=== PATIENT | male | born 1945 | race Caucasian/White ===

== ENCOUNTER 2023-02-24 11:11 | Outpatient (OUT) | payer MEDICARE, OTHER, SELFPAY ==
[2023-02-24 11:38] LABS: Basophils Percent Auto 0.4 % (0.2-2.0); Eosinophils Absolute Auto 0.3 10^3/uL (0.0-0.7); Eosinophils Percent Auto 2.7 % (0.9-7.0); Hematocrit 39.6 % (42.0-54.0); Hemoglobin 14.1 g/dL (14.0-18.0); Immature Granulocytes Abs Auto 0.03 10^3/uL (0.00-0.03); Immature Granulocytes Pct Auto 0.3 % (0.0-0.5); Lymphocytes Percent Auto 10.6 % (20.5-60.0); Mean Corpuscular HGB Conc 35.6 g/dL (29.9-35.2); Mean Corpuscular Hemoglobin 35.5 pg (25.9-34.0); Mean Corpuscular Volume 99.7 fL (80.0-94.0); Mean Platelet Volume 10.2 fL (9.5-13.5); Monocytes Absolute Auto 0.6 10^3/uL (0.3-0.8); Monocytes Percent Auto 6.4 % (1.7-12.0); Neutrophils Absolute Auto 7.6 10^3/uL (1.4-6.5); Neutrophils Percent Auto 79.6 % (43.0-75.0); Platelet Count 135 10^3/uL (150-450); Red Blood Count 3.97 10^6/uL (4.70-6.10); Red Cell Distribution Width 13.5 % (11.0-15.0); White Blood Count 9.5 10^3/uL (4.0-11.0)
[2023-02-24 12:25] LABS: Alanine Aminotransferase 13 U/L (16-63); Albumin Level 3.7 g/dL (3.4-5.0); Alkaline Phosphatase 69 U/L (46-116); Anion Gap 10.3; Aspartate Amino Transferase 11 U/L (15-37); BUN Creatinine Ratio 13.9; Bilirubin Total 1.2 mg/dL (0.2-1.0); Calcium 9.1 mg/dL (8.5-10.1); Carbon Dioxide 30.1 mmol/L (21.0-32.0); Chloride 101 mmol/L (98-107); Estimated GFR (African America >60 (>=60); Estimated GFR (Non-African Ame >60 (>=60); Globulin 3.6 g/dL; Glucose 119 mg/dL (74-106); Potassium 4.4 mmol/L (3.5-5.1); Sodium 137 mmol/L (136-145); Total Protein 7.3 g/dL (6.4-8.2)
== END 2023-02-24 11:12 | disposition home or self-care (01) ==
LOC: LAB 11:16
PROVIDERS: PCP Family Medicine
DX: I48.19 Other persistent atrial fibrillation (principal); Z79.01 Long term (current) use of anticoagulants
CPT/HCPCS: 36415; 80053; 85025

== ENCOUNTER 2023-03-04 08:39 | Outpatient (OUT) | payer MEDICARE, OTHER, SELFPAY ==
--- NOTE | 2023-03-04 08:48 | CT_ITS ---
[address] [address] Patient Name: ABDIAS FERNANDO MRN: [id number] date: 1945 Sex: M Assigned Patient Location: CT Current Patient Location: CT Accession/Order Number: [id number] Exam Date: 03/04/2023 08:50 Report Date: 03/04/2023 09:54 At the request of: JANES LEON Procedure: CT int auditory canals w/o con EXAMINATION: CT int auditory canals w/o con HISTORY: Hearing Loss COMPARISON: None. TECHNIQUE: High resolution helically acquired axial images were obtained through the temporal bones without the administration of intravenous contrast. Dose reduction techniques were achieved by using automated exposure control and/or adjustment of mA and/or kV according to patient size and/or use of iterative reconstruction technique. FINDINGS: The study is suboptimal due to lack of targeted axial and coronal reconstructions of the right and left temporal bones. Right: The external auditory canal is patent. There is minimal thickening of the tympanic membrane. The middle ear cavity is well aerated. The ossicles appear intact and in anatomic alignment. Scutum, tegmen tympani and tympanic segment of the facial nerve canal appear intact. The cochlea, vestibule and semicircular canals appear preserved. The internal auditory canal is not expanded. There is mild fluid in the right mastoid air cells. There are no lesions in the petrous apex. Left: The external auditory canal is patent. The tympanic membrane is not thickened. The ossicles are intact and well aligned. The scutum is not eroded. The tympanic segment of the facial nerve appears intact. The tegmen tympani appears intact. The cochlea, vestibule and semicircular canals appear preserved. The internal auditory canal is not expanded. There is mild fluid in the mastoid air cells. There are no lesions in the petrous apex. CT/CT int auditory canals w/o con IMPRESSION: Slight bilateral mastoid effusions. There is minimal thickening of the right tympanic membrane. The study is otherwise unremarkable. Electronically authenticated by: KE POTTS Date: 03/04/2023 09:54
== END 2023-03-04 08:40 | disposition home or self-care (01) ==
LOC: CT 08:42
PROVIDERS: PCP Family Medicine; Visit Provider Otolaryngology
DX: M86.68 Other chronic osteomyelitis, other site (principal)
CPT/HCPCS: 70480

== ENCOUNTER 2023-04-28 12:28 | Outpatient (RCR) | payer MEDICARE, OTHER, SELFPAY | END 2023-05-05 17:49 | disposition home or self-care (01) | LOC: MM 12:28 | PROVIDERS: PCP Family Medicine; Visit Provider Internal Medicine | DX: Z51.81 Encounter for therapeutic drug level monitoring (principal); Z79.01 Long term (current) use of anticoagulants; I48.20 Chronic atrial fibrillation, unspecified ==

== ENCOUNTER 2023-05-06 00:32 | Outpatient (RCR) | payer MEDICARE, OTHER, SELFPAY | END 2023-06-04 16:54 | disposition home or self-care (01) | LOC: MM 00:32 | PROVIDERS: PCP Family Medicine; Visit Provider Internal Medicine | DX: Z51.81 Encounter for therapeutic drug level monitoring (principal); Z79.01 Long term (current) use of anticoagulants; I48.20 Chronic atrial fibrillation, unspecified | CPT/HCPCS: G0463 ==

== ENCOUNTER 2023-07-14 14:30 | Outpatient (REF) | payer OTHER, SELFPAY ==
--- OUTSIDE RECORDS SUMMARY | 2023-09-16 09:25 | XMS_ITS | CCD ---
Author Name Unknown Address [address] [place] [address] Organization [facility] Care Team Providers Care Director Payment Name Role Phone Real Dodd Unavailable Unavailable Unavailable Andrea Govea II Unavailable MD Real Dodd Primary Care Provider [phone] MD Real Dodd Attending Provider MD Andrea Govea II Attending Provider DR REAL DODD Consulting Unavailable DR REAL DODD Attending Unavailable DR REAL DODD Admitting Unavailable DR REAL DODD Primary Care Unavailable DR REAL DODD Consulting Unavailable JU, DR NOBLE Attending Unavailable JU, DR NOBLE Admitting Unavailable JU, DR NOBLE Primary Care Unavailable DR REAL DODD Attending Unavailable DR REAL DODD Consulting Unavailable DR REAL DODD Admitting Unavailable DR REAL DODD Primary Care Unavailable RAHEEM GRAHAM Consulting Unavailable DR REAL DODD Consulting Unavailable DR REAL DODD Attending Unavailable DR REAL DODD Referring Unavailable DR REAL DODD Admitting Unavailable DR REAL DODD Primary Care Unavailable DR YURI PATEL Consulting Unavailable DR REAL DODD Consulting Unavailable DR REAL DODD Attending Unavailable JU, DR NOBLE Admitting Unavailable DR REAL DODD Primary Care Unavailable CARTER Adams Other Provider Unavailable CARTER Young Other Provider Unavailable CARTER Elizondo Other Provider Unavailable CARTER Argueta Other Provider Unavailable CARTER Alvarez Other Provider Unavailable CARTER Rm Other Provider Unavailable Carlo, MD Derrick K Other Provider MAURA WongN Kimmy M Other Provider DO Bandar Caro Other Provider MD Butch Ballard Other Provider DO Cruz Phipps Other Provider MD Taiwo Guy Other Provider MD Katy Irvin Other Provider Kathe ANP-BC Bernadette Other Provider MD Carol Carias Other Provider MD Roel Macedo Other Provider MD Dotty Benson Other Provider MD Phyllis Medellin Other Provider DO John Hall Other Provider MD Rodger Loyd Other Provider MD Familia Dos Santos Other Provider MD Zach Leavitt Other Provider KARLA Bennett-Marina Riley Other Provider MD Shar Kahn Other Provider MD Evin Silver Other Provider MD Lilian Shrestha Other Provider MD Tarun Bateman Other Provider DO Tonya Mcgregor Other Provider MD Jennifer Barry Other Provider DO Paco Kim Other Provider DO Saúl Funk Other Provider QUYNH Zabala Other Provider DO Jimenez Bran Other Provider MD Watson Ryan Other Provider CARTER Talamantes Other Provider Unavailable MD Delmer Whyte Admit Provider MD Delmer Whyte Attending Provider MD Rain Ramos Other Provider Ju, Dr. Real Lopez Primary Care Unavail able Traboulssi, Dr. Perez Attending Unavaila ble Traboulssi, Dr. Perez Attending Unavaila ble Traboulssi, Dr. Perez Referring Unavaila ble Hoy, Dr. Real Lopez Primary Care Unavail able Traboulssi, Dr. Perez Attending Unavaila ble Traboulssi, Dr. Perez Referring Unavaila ble Hoy, Dr. Real Lopez Primary Care Unavail able Traboulssi, Dr. Perez Referring Unavaila ble Traboulssi, Dr. Perez Attending Unavaila ble Hoy, Dr. Real Lopez Primary Care Unavail able Hoy, Dr. Real Lopez Primary Care Unavail able Traboulssi, Dr. Perez Referring Unavaila ble Traboulssi, Dr. Perez Attending Unavaila ble MD Real Dodd Primary Care Provider MD Andrea Govea II Attending Provider MD Real Dodd Primary Care Provider MD Andrea Govea II Attending Provider [phone] CARTER Adams Other Provider Unavailable CARTER Young Other Provider Unavailable CARTER Elizondo Other Provider Unavailable CARTER Argueta Other Provider Unavailable CARTER Alvarez Other Provider Unavailable CARTER Rm Other Provider Unavailable MD Rain Ramos Other Provider Marvin, QUYNH Soliz Other Provider DO Bandar Caro Other Provider [phone] MD Butch Ballard Other Provider DO Cruz Phipps Other Provider MD Taiwo Guy Other Provider MD Katy Irvin Other Provider QUYNH Carr Other Provider MD Carol Carias Other Provider MD Roel Macedo Other Provider MD Dotty Benson Other Provider MD Phyllis Medellin Other Provider DO John Hall Other Provider MD Familia Dos Santos Other Provider MD Zach Leavitt Other Provider KARLA Bennett-C Priscilla Riley Other Provider MD Shar Kahn Other Provider MD Evin Silver Other Provider MD Sabas Kc Other Provider MD Tarun Bateman Other Provider DO Tonya Mcgregor Other Provider DO Paco Kim Other Provider DO Saúl Funk Other Provider [phone] QUYNH Zabala Other Provider DO Jimenez Bran Other Provider [phone] MD Watson Ryan Other Provider QUYNH Collins Other Provider QUYNH Platt Other Provider MD Bianca Banuelos Other Provider MD Colby Acosta Other Provider DO Teo Ennis Other Provider [phone] QUYNH Narayanan Other Provider DO Sheila Bañuelos Other Provider CARTER Talamantes Other Provider Unavailable MD Delmer Whyte Other Provider MD Delmer Whyte Admit Provider MD Delmer Whyte Attending Provider JANES LEON Attending Unavailable Real Dodd Primary Care Physician MD Real Dodd Primary Care Provider [phone] MD Andrea Govea II Attending Provider [phone] Jeferson OROZCO, Andrea Soliz Attending Unavailabl e [place] II, Andrea Soliz Admitting Unavailabl e Real Dodd Primary Care Unavailable Jeferson II, Andrea Soliz Admitting Unavailabl e Jeferson II, Andrea Soliz Attending Unavailabl e Real Dodd Primary Care Unavailable Jeferson II, Andrea Soliz Admitting Unavailabl e Real Dodd Primary Care Unavailable Jeferson OROZCO, Andrea Soliz Attending Unavailabl e [place] II, Andrea Soliz Admitting Unavailabl e [place] II, Andrea Soliz Attending Unavailabl e Real Dodd Primary Care Unavailable [place] II, Andrea Soliz Admitting Unavailabl e Jeferson OROZCO, Andrea Soliz Attending Unavailabl e Real Dodd Primary Care Unavailable Basilia Adams Consulting Unavailable Annette Young Consulting Unavailable Lala Elizondo Consulting Unavailable Rebeka Argueta Consulting Unavailable Yeny Alvarez Consulting Unavailable Orly Rm Consulting Unavailable Rain Ramos Consulting Unavailable Kimmy Wong Consulting Unavailable Bandar Caro Consulting Unavailable Butch Ballard Consulting Unavailable Crzu Phipps Consulting Unavailabl e Taiwo Guy Consulting Unavailable Katy Irvin Consulting Unavailable Bernadette Carr Consulting Unavailabl e Carol Carias Consulting Unavailable Roel Macedo Consulting Unavailable Dotty Benson Consulting Unavailable Phyllis Medellin Consulting Unavailable John Hall Consulting Unavailable Familia Dos Santos Consulting Unavailable Zach Leavitt Consulting Unavailable Priscilla Bennett Consulting Unavailable Doamekpor, Shar E Consulting Unavailab le Nadeem, Evin Consulting Unavailable De, Sabas Consulting Unavailable Fransico, Tarun Consulting Unavailable Tonya Mcgregor Consulting Unavailable Paco Kim Consulting Unavailable Saúl Funk Consulting Unavailable Bindu Zabala Consulting Unavailable Jimenez Bran Consulting Unavailable Daromar, Obaydah M Consulting Unavailable Gerda Collins Consulting Unavailable Marilee Platt Consulting Unavailable Lakisha, Alaa Consulting Unavailable Colby Acosta Consulting Unavailable Teo Ennis Consulting Unavailable Amy Narayanan Consulting Unavailable Sarmad, Yazid Consulting Unavailable Norma Talamantes Consulting Unavailable Delmer Whyte Consulting Unavailable Basilia Adams Consulting Unavailable Delmer Whyte Attending Unavailable Delmer Whyte Admitting Unavailable Real Dodd Primary Care Unavailable Annette Young Consulting Unavailable Lala Elizondo Consulting Unavailable Rebeka Argueta Consulting Unavailable Yeny Alvarez Consulting Unavailable Orly Rm Consulting Unavailable Rain Ramos Consulting Unavailable Kimmy Wong Consulting Unavailable Bandar Caro Consulting Unavailable Butch Ballard Consulting Unavailable Cruz Phipps Consulting UnavailTaiwo Pugh Consulting Unavailable Katy Irvin Consulting Unavailable Bernadette Carr Consulting UnavailCarol Squires Consulting Unavailable Roel Macedo Consulting Unavailable Dotty Benson Consulting Unavailable Phyllis Medellin Consulting Unavailable John Hall Consulting Unavailable Familia Dos Santos Consulting Unavailable Zach Leavitt Consulting Unavailable Priscilla Bennett Consulting Unavailable DoShar fam E Consulting Unavailab le Nadeem, Evin Consulting Unavailable De, Sabas Consulting Unavailable Fransico, Tarun Consulting Unavailable Tonya Mcgregor Consulting Unavailable Paco Kim Consulting Unavailable Saúl Funk Consulting Unavailable Bindu Zabala Consulting Unavailable Jimenez Bran Consulting Unavailable Daromar, Obaydah M Consulting Unavailable Gerda Collins Consulting Unavailable Marilee Platt C Consulting Unavailable Lakisha, Alaa Consulting Unavailable Colby Acosta Consulting Unavailable Amy Narayanan Consulting Unavailable Sarmad, Patriciazid Consulting Unavailable Norma Talamantes Consulting Unavailable John BARTLETT Attending Unavailable John BARTLETT Attending Unavailable John BARTLETT Attending Unavailable John BARTLETT Attending Unavailable JAMMIE VELASQUEZ Attending Unavailable REAL DODD Primary Care Unavailable Allergies Allergy Classification Reported Allergen(s) Allergy Type Date of Onset Reaction(s) Facility (5 sources) Triamcinolone; Translations: [triamcinolone topical] Drug Allergy 02-25-2023 Anaphylaxis (disorder) General Surgery [place] Medications Current Medications Medication Drug Class(es) Dates Sig (Normalized) Sig (Original) acetaminophen 500 mg oral tablet (20 sources) Start: 05-27-2023 take 500 mg by mouth every eight hours Acetaminophen Active 500 MG PO Q8H 0 May 27, 2023 8:40am Start: 05-18-2023 End: 05-27-2023 take 1000 mg by mouth every eight hours Acetaminophen Discontinued 1000 MG PO Q8H May 18, 2023 12:00am May 27, 2023 8:41am Start: 04-28-2023 End: 05-12-2023 take 2 capsules by mouth four times daily Acetaminophen (Tylenol Extra Strength) 500 mg Capsule Discontinued 1000 MG PO Four times daily April 27, 2023 11:00pm May 12, 2023 9:49am Start: 04-15-2022 End: 04-28-2022 take 1000 mg by mouth every eight hours Acetaminophen Discontinued 1000 MG PO Q8H April 14, 2022 11:00pm April 28, 2022 8:16am Start: 03-26-2022 take 2 tablets by mo [facility] every eight hours for pain Acetaminophen 500 MG 2 tablets for pain Orally every 8 hrs for 30 days Med to Bed Upon Discharge DOS: 05/12/2023 Apr, Active allopurinol 300 mg oral tablet (20 sources) Xanthine Oxidase Inhibitor Start: 06-17-2023 take 1 tablet by mouth once daily allopurinol 300 mg Tab 300 mg = 1 tab(s), Oral, Daily, Refills(s) 0 Start Date: 06/17/23 Status: Ordered Start: 09-06-2019 End: 04-28-2022 take 300 mg by mouth once daily in the morning Allopurinol Discontinued 300 MG PO Every morning September 05, 2020 12:00am April 28, 2022 8:16am apixaban 5 mg oral tablet (20 sources) Factor Xa Inhibitor Start: 06-17-2023 take 1 tablet by mouth twice daily Eliquis 5 mg oral tablet 5 mg = 1 tab(s), Oral, BID, Refills(s) 0 Start Date: 06/17/23 Status: Ordered Start: 09-05-2020 End: 04-28-2022 take 1 tablet by mouth twice daily Eliquis 5 mg oral tablet 5 mg = 1 tab(s), Oral, BID, Refills(s) 0 Start Date: 06/17/23 Status: Ordered ascorbic acid 500 mg oral tablet (20 sources) Vitamin C Start: 05-18-2023 take 1 tablet by mouth twice daily at mealtime Ascorbic Acid (Vitamin C) (Vitamin C) 500 mg Tablet Active 500 MG PO Twice daily with meals May 18, 2023 12:00am Start: 04-28-2023 End: 05-18-2023 take 1 tablet by mouth once daily Ascorbic Acid (Vitamin C) (Vitamin C) 500 mg tablet Discontinued 500 MG PO Daily April 28, 2023 8:11am May 18, 2023 1:23pm Start: 04-15-2022 End: 04-28-2023 take 1 tablet by mouth twice daily at mealtime Ascorbic Acid (Vitamin C) (Vitamin C) 500 mg Tablet Discontinued 500 MG PO Twice daily with meals April 27, 2022 11:00pm April 28, 2023 8:12am Start: 02-10-2022 End: 04-15-2022 take 500 mg by mouth once daily Ascorbic Acid (Vitamin C) Discontinued 500 MG PO Daily March 30, 2022 11:00pm April 15, 2022 1:02pm take 1 capsule by [facility] once daily Vitamin C 500 MG Oral Capsule 1 daily Quantity: 0 Refills: 0 Ordered: 05-Aug-2022 DO Active carvedilol 25 mg oral tablet (20 sources) alpha-Adrenergic Eddi, beta-Adrenergic Eddi Start: 06-17-2023 take 1 tablet by mouth twice daily carvedilol 25 mg Tab 25 mg = 1 tab(s), Oral, BID, Refills(s) 0 Start Date: 06/17/23 Status: Ordered Start: 08-31-2019 End: 04-28-2022 take 25 mg by mouth twice daily Carvedilol Discontinued 25 MG PO Twice daily September 05, 2020 12:00am April 28, 2022 8:16am celecoxib 200 mg oral capsule (5 sources) Nonsteroidal Anti-inflammatory Drug Start: 03-26-2022 take 1 capsule by mouth every twelve hours Celecoxib 200 MG 1 capsule with food Orally Twice a day for 30 day(s) MED TO BED UPON DISCHARGE DOS: 04/14/22 Mar, Active docusate sodium 100 mg oral capsule (9 sources) Start: 06-17-2023 take 1 capsule by mouth once daily as needed for constipation Colace 100 mg Cap 100 mg = 1 cap(s), Oral, Daily, PRN for constipation, Refills(s) 0 Start Date: 06/17/23 Status: Ordered Start: 04-28-2022 End: 04-28-2023 take 100 mg by mouth twice daily Docusate Sodium Discontinued 100 MG PO Twice daily April 27, 2022 11:00pm April 28, 2023 8:11am ferrous sulfate 325 mg delayed release oral tablet (20 sources) Start: 06-17-2023 take 1 tablet by mouth once daily ferrous sulfate 325 mg oral enteric coated tablet 325 mg = 1 tab(s), Oral, Daily, Refills(s) 0 Start Date: 06/17/23 Status: Ordered Start: 05-27-2023 take 324 mg by mouth once kira y Ferrous Sulfate Active 324 MG PO Daily 0 May 27, 2023 8:40am Start: 05-18-2023 End: 05-27-2023 take 324 mg by mouth twice daily at mealtime Ferrous Sulfate Discontinued 324 MG PO Twice daily with meals May 18, 2023 12:00am May 27, 2023 8:41am Start: 04-28-2023 End: 05-18-2023 take 324 mg by mouth once daily Ferrous Sulfate Discon tinued 324 MG PO Daily April 28, 2023 8:11am May 18, 2023 1:23pm Start: 04-15-2022 End: 04-28-2023 take 324 mg by mouth twice daily Ferrous Sulfate Disco ntinued 324 MG PO Twice daily April 27, 2022 11:00pm April 28, 2023 8:12am Start: 02-10-2022 End: 04-15-2022 take 325 mg by mouth once daily Ferrous Sulfate Discon tinued 325 MG PO Daily March 30, 2022 11:00pm April 15, 2022 1:01pm take 1 tablet by shayy th once daily Ferrous Sulfate 325 (65 Fe) MG TAKE 1 TABLET BY MOUTH EVERY DAY for 30 Active folic acid 1 mg oral tablet (20 sources) Start: 06-17-2023 take 1 tablet by mouth once daily folic acid 1 mg Tab 1 mg = 1 tab(s), Oral, Daily, Refills(s) 0 Start Date: 06/17/23 Status: Ordered Start: 04-15-2022 End: 04-28-2022 take 1 tablet by mouth once daily folic acid 1 mg Tab 1 mg = 1 tab(s), Oral, Daily, Refills(s) 0 Start Date: 06/17/23 Status: Ordered furosemide 40 mg oral tablet (9 sources) Loop Diuretic Start: 06-17-2023 take 1 tablet by mouth once daily Lasix 40 mg Tab 40 mg = 1 tab(s), Oral, Daily, Refills(s) 0 Start Date: 06/17/23 Status: Ordered Start: 04-28-2022 End: 04-28-2023 take 40 mg by mouth once daily Furosemide Discontinued 40 MG PO Daily at 0800 April 27, 2022 11:00pm April 28, 2023 8:11am Iron (1 source) Start: 02-10-2022 take 1 tablet by mouth once daily Iron (Ferrous Sulfate) 325 (65 Fe) MG 1 tablet Orally Once a day for 30 day(s) Feb, Active melatonin 5 mg oral tablet (9 sources) Start: 06-17-2023 take 1 tablet by mouth once daily at bedtime as needed melatonin 5 mg oral tablet 5 mg = 1 tab(s), Oral, Once a day (at bedtime), PRN for insomnia, Refills(s) 0 Start Date: 06/17/23 Status: Ordered Start: 04-28-2022 End: 04-28-2023 take 5 mg by mouth once daily at bedtime Melatonin Discontinued 5 MG PO Daily at bedtime April 27, 2022 11:00pm April 28, 2023 8:12am omeprazole 20 mg delayed release oral capsule (9 sources) Proton Pump Inhibitor Start: 06-17-2023 take 1 capsule by mouth once daily omeprazole 20 mg Cap-DR 20 mg = 1 cap(s), Oral, Daily, Refills(s) 0 Start Date: 06/17/23 Status: Ordered Start: 04-28-2022 End: 04-28-2023 take 20 mg by mouth once daily Omeprazole Discontinued 20 MG PO Daily April 27, 2022 11:00pm April 28, 2023 8:12am oxyCODONE hydrochloride 5 mg oral tablet (20 sources) Opioid Agonist Start: 05-27-2023 take 5 mg by mouth every six hours Oxycodone Active 5 MG PO Q6H 30 May 27, 2023 Start: 04-29-2023 End: 05-27-2023 take 5 mg by mouth every four hours Oxycodone Discontinued 5 MG PO Every 4 hours May 18, 2023 3:44pm May 27, 2023 8:40am Start: 03-26-2022 End: 04-28-2023 take 5 mg by mouth every four hours Oxycodone Discontinued 5 MG PO Every 4 hours 16 01April 28, 2022 April 28, 2023 8:12am Miralax (20 sources) Osmotic Laxative Start: 06-17-2023 take 17 g by mouth once daily MiraLax 17 gm, Oral, Daily, Refill(s) 0 Start Date: 06/17/23 Status: Ordered Start: 05-18-2023 End: 05-27-2023 Polyethylene Glycol 3350 (He althylax) 17 gram Powder In Packet Active 17 GM PO Daily May 27, 2023 8:40am Start: 03-26-2022 End: 04-28-2023 Polyethylene Glycol 3350 (Mi ralax) 17 gram Powder In Packet Discontinued 17 GM PO Daily April 27, 2022 11:00pm April 28, 2023 8:12am vitamin b12 1 mg oral tablet (17 sources) Vitamin B12 Start: 04-15-2022 End: 04-28-2022 take 1000 ug by mouth once daily in the morning Cyanocobalamin (Vitamin B-12) Active 1000 MCG PO Every morning April 27, 2022 11:00pm Vitamin B12 1000 mcg Tab (3 sources) Start: 06-17-2023 take 1 tablet by mouth once daily Vitamin B12 1000 mcg Tab 1,000 mcg = 1 tab(s), Oral, Daily, Refills(s) 0 Start Date: 06/17/23 Status: Ordered Vitamin D 25 MCG (1000 UT) (1 source) Start: 02-10-2022 take 5 tablets by mouth once daily Vitamin D 25 MCG (1000 UT) 5 tablet Orally Once a day for 30 day(s) 5k Vit D daily Feb, Active Vitamin D3 1000 intl units (25 mcg) Tab (3 sources) Start: 06-17-2023 take 1 tablet by mouth once daily Vitamin D3 1000 intl units (25 mcg) Tab 25 mcg = 1 tab(s), Oral, Daily, Refills(s) 0 Start Date: 06/17/23 Status: Ordered Vitamin D3 25 MCG (1000 UT) (3 sources) take 5 tablets by mouth once daily Vitamin D3 25 MCG (1000 UT) TAKE 5 TABLETS BY MOUTH ONCE DAILY for 90 Active Vitamin D3 25 MC G (1000 UT) TAKE 5 CAPSULES BY MOUTH ONCE A DAY FOR 30 DAYS for 30 Active Completed/Discontinued Medications Medication Drug Class(es) Dates Sig (Normalized) Sig (Original) amLODIPine 10 mg oral tablet (20 sources) Dihydropyridine Calcium Channel Eddi Start: 04-02-2021 End: 04-28-2022 take 10 mg by mouth once daily Amlodipine Discontinued 10 MG PO Daily March 30, 2022 11:00pm April 28, 2022 8:16am amoxicillin 875 mg / clavulanate 125 mg oral tablet (1 source) Penicillin-class Antibacterial Start: 08-09-2020 Amoxicillin-Pot Clavulanate 875-125 MG Oral Tablet Quantity: 20 Refills: 0 Ordered: 09-Aug-2020 DO Start : 09-Aug-2020 Complete bisacodyl 5 mg delayed release oral tablet (2 sources) Stimulant Laxative Start: 05-18-2023 End: 05-27-2023 take 10 mg by mouth once daily Bisacodyl Discontinued 10 MG PO Daily May 18, 2023 12:00am May 27, 2023 8:41am cefadroxil 500 mg oral capsule (13 sources) Cephalosporin Antibacterial Start: 05-18-2023 End: 05-27-2023 take 500 mg by mouth twice daily Cefadroxil Discontinued 500 MG PO Twice daily May 18, 2023 12:00am May 27, 2023 8:41am Start: 04-29-2023 take 1 capsule by mo [facility] every twelve hours Cefadroxil 500 MG 1 tablet Orally every 12 hrs for 7 days Med to Bed Upon Discharge DOS: 05/12/2023 Apr, Active Start: 04-15-2022 End: 04-28-2022 take 500 mg by mouth twice daily Cefadroxil Discontinued 500 MG PO Twice daily April 14, 2022 11:00pm April 28, 2022 8:16am Start: 03-26-2022 take 1 capsule by [facility] every twelve hours Cefadroxil 500 MG 1 tablet Orally every 12 hrs for 7 days MED TO BED UPON DISCHARGE DOS: 04/14/22 Mar, Active cholecalciferol 0.025 mg oral tablet (20 sources) Vitamin D Start: 05-28-2022 take 5 tablets by mouth once daily Vitamin D3 25 MCG (1000 UT) Oral Tablet TAKE 5 TABLETS BY MOUTH ONCE DAILY Quantity: 450 Refills: 0 Ordered: 30-May-2022 DO Start : 28-May-2022 Active Start: 04-28-2022 take 125 ug by mouth once daily Cholecalciferol (Vitamin D3) Active 125 MCG PO Daily April 27, 2022 11:00pm Start: 03-31-2022 End: 04-28-2022 take 5000 [IU] by mouth once daily Cholecalciferol (Vitamin D3) Discontinued 5000 UNIT PO Daily March 30, 2022 11:00pm April 28, 2022 8:16am Vitamin D3 25 MC G (1000 UT) TAKE 5 CAPSULES BY MOUTH ONCE A DAY FOR 30 DAYS for 30 Active clotrimazole 10 mg/ml topical solution (1 source) Azole Antifungal Start: 06-11-2020 Clotrimazole 1 % External Solution Quantity: 15 Refills: 0 Ordered: 11-Jun-2020 DO Start : 11-Jun-2020 Complete diclofenac sodium 75 mg delayed release oral tablet (20 sources) Nonsteroidal Anti-inflammatory Drug Start: 09-05-2020 End: 04-15-2022 take 75 mg by mouth twice daily Diclofenac Sodium Discontinued 75 MG PO Twice daily September 05, 2020 12:00am April 15, 2022 1:01pm Start: 05-18-2020 Diclofenac Sod ium 75 MG Oral Tablet Delayed Release 1 TAB EDWARD Quantity: 0 Refills: 0 Ordered: 01-Jun-2020 DO Start : 18-May-2020 Active docusate sodium 50 mg / sennosides, snf 8.6 mg oral tablet (20 sources) Start: 04-29-2023 End: 05-27-2023 take 2 tablets by mouth once daily Sennosides-Docusate Sodium Discontinued 2 TAB PO Daily May 18, 2023 12:00am May 27, 2023 8:40am Start: 03-26-2022 End: 04-28-2023 take 2 tablets by mouth once daily Sennosides-Docusate Sodium (Stool Softener-Stimulant Laxat) 8.6-50 mg Tablet Discontinued 2 TAB PO Daily April 27, 2022 11:00pm April 28, 2023 8:12am hydrALAZINE hydrochloride 100 mg oral tablet (20 sources) Arteriolar Vasodilator Start: 09-05-2020 End: 04-28-2022 take 100 mg by mouth twice daily Hydralazine Discontinued 100 MG PO Twice daily September 05, 2020 12:00am April 28, 2022 8:16am hydroCHLOROthiazide 25 mg oral tablet (20 sources) Thiazide Diuretic Start: 09-05-2020 End: 04-28-2022 take 25 mg by mouth once daily in the morning Hydrochlorothiazide Discontinued 25 MG PO Every morning September 05, 2020 12:00am April 28, 2022 8:16am Start: 09-05-2020 take 25 mg by mouth every other day Hydrochlorothiazide Active 25 MG PO Q2D September 05, 2020 1:00am ibuprofen 200 mg oral capsule (3 sources) Nonsteroidal Anti-inflammatory Drug Start: 04-28-2023 End: 05-12-2023 take 400 mg by mouth every six hours Ibuprofen Discontinued 400 MG PO Q6H April 27, 2023 11:00pm May 12, 2023 9:49am lisinopril 40 mg oral tablet (20 sources) Angiotensin Converting Enzyme Inhibitor Start: 07-10-2020 End: 04-28-2022 take 40 mg by mouth once daily in the morning Lisinopril Discontinued 40 MG PO Every morning September 05, 2020 12:00am April 28, 2022 8:16am losartan potassium 100 mg oral tablet (10 sources) Angiotensin 2 Receptor Eddi Start: 02-04-2021 Losartan Potassium 100 MG Oral Tablet Quantity: 90 Refills: 0 Ordered: 04-Feb-2021 DO Start : 04-Feb-2021 Complete Start: 09-05-2020 End: 03-31-2022 take 100 mg by mouth once daily Losartan Discontinued 100 MG PO Daily September 05, 2020 12:00am March 31, 2022 1:01pm mineral oil 1000 mg/ml enema (2 sources) Start: 05-18-2023 End: 05-27-2023 Mineral Oil (Fleet Mineral Oil) Enema Discontinued 1 EACH TN Once May 18, 2023 12:00am May 27, 2023 8:41am ofloxacin 3 mg/ml otic solution (1 source) Quinolone Antimicrobial Start: 06-11-2020 Ofloxacin 0.3 % Otic Solution Quantity: 5 Refills: 0 Ordered: 11-Jun-2020 DO Start : 11-Jun-2020 Complete ondansetron 4 mg disintegrating oral tablet (16 sources) Serotonin-3 Receptor Antagonist Start: 05-18-2023 End: 05-27-2023 take 8 mg by mouth three times daily Ondansetron Discontinued 8 MG PO Three times daily May 18, 2023 12:00am May 27, 2023 8:41am Start: 04-15-2022 End: 04-28-2022 take 8 mg by mouth three times daily Ondansetron Discontinued 8 MG PO Three times daily April 14, 2022 11:00pm April 28, 2022 8:16am Start: 03-26-2022 take 1 tablet by shayy th three times daily as needed for nausea Ondansetron HCl 8 MG 1 tablet as needed for nausea Orally Three times a day for 10 days Med to Bed Upon Discharge DOS: 05/12/2023 Apr, Active pantoprazole 40 mg delayed release oral tablet (4 sources) Proton Pump Inhibitor Start: 05-18-2023 End: 05-27-2023 take 20 mg by mouth once daily Pantoprazole Discontinued 20 MG PO Daily May 18, 2023 12:00am May 27, 2023 8:41am Start: 04-29-2023 take 1 tablet by shayy th every twenty-four hours Protonix 20 MG 1 tablet Orally Once a day for 35 days Med to Bed Upon Discharge DOS: 05/12/2023 Apr, Active prednisoLONE Acetate 1 % Ophthalmic Suspension (1 source) Corticosteroid Start: 05-29-2020 prednisoLONE Acetate 1 % Ophthalmic Suspension Quantity: 5 Refills: 0 Ordered: 11-Jun-2020 DO Start : 29-May-2020 Complete predniSONE 10 mg oral tablet (4 sources) Start: 04-29-2023 End: 05-27-2023 take 10 mg by mouth once daily Prednisone Discontinued 10 MG PO Daily May 18, 2023 12:00am May 27, 2023 8:41am spironolactone 25 mg oral tablet (20 sources) Aldosterone Antagonist Start: 01-23-2022 End: 05-27-2023 take 25 mg by mouth once daily in the morning Spironolactone Discontinued 25 MG PO Every morning April 27, 2022 11:00pm May 27, 2023 8:40am hold for SBP 12 hr timolol 5 mg/ml ophthalmic solution (1 source) beta-Adrenergic Eddi Start: 11-08-2020 Timolol Maleate 0.5 % Ophthalmic Solution Quantity: 5 Refills: 0 Ordered: 08-Nov-2020 DO Start : 08-Nov-2020 Complete traMADol hydrochloride 50 mg oral tablet (18 sources) Opioid Agonist Start: 05-18-2023 End: 05-27-2023 take 50 mg by mouth every four hours Tramadol Discontinued 50 MG PO Q4H May 18, 2023 3:44pm May 27, 2023 8:41am Start: 04-15-2022 End: 04-28-2022 take 50 mg by mouth every four hours Tramadol Discontinued 50 MG PO Q4H April 14, 2022 11:00pm April 28, 2022 8:16am Start: 03-26-2022 take 1 tablet by shayy th every six hours as needed for pain traMADol HCl 50 MG 1 tablet as needed for pain Orally every 6 hrs for 10 days Med to Bed Upon Discharge DOS: 05/12/2023 Apr, Active triamcinolone acetonide 40 mg/ml injectable suspension (8 sources) Corticosteroid Start: 11-29-2021 Kenalog-40 November, 40 mg Problems Active Problems Problem Classification Problem Date Documented Da te Episodic/Chronic Administrative/social admission (5 sources) Other reduced mobility; Translations: [Impaired mobility and activities of daily living] Onset: 05-18-2023 05-19-2023 Episodic Cancer of colon (3 sources) History of malignant neoplasm of colon 06-17-2023 Episodic Cardiac dysrhythmias (20 sources) Persistent atrial fibrillation; Translations: [Atrial fibrillation] Onset: 06-15-2021 04-14-2022 Chronic Cardiac dysrhythmias (13 sources) Sinus bradycardia; Translations: [Other specified cardiac dysrhythmias] Onset: 04-24-2023 Episodic Congestive heart failure; nonhypertensive (1 source) Unspecified diastolic (congestive) heart failure; Translations: [UNSPECIFIED DIASTOLIC HEART FAILURE] Onset: 06-15-2021 Chronic Deficiency and other anemia (6 sources) Anemia; Translations: [Anemia, unspecified] 04-18-2022 Episodic Deficiency and other anemia (4 sources) Anemia, unspecified; Translations: [Anemia, unspecified] Onset: 05-18-2023 04-28-2022 Episodic Disorders of lipid metabolism (18 sources) Hyperlipidemia, unspecified; Translations: [Hyperlipidemia] Onset: 06-15-2021 04-14-2022 Chronic Essential hypertension (20 sources) Essential hypertension; Translations: [Unspecified essential hypertension] Onset: 04-24-2023 04-14-2022 Chronic Fluid and electrolyte disorders (7 sources) Hyponatremia; Translations: [Hypo-osmolality and hyponatremia] 04-16-2022 Episodic Gout and other crystal arthropathies (17 sources) Gout, unspecified; Translations: [Gout] Onset: 06-15-2021 04-14-2022 Chronic Hypertension with complications and secondary hypertension (1 source) Hypertensive heart disease with heart failure; Translations: [HTN HEART DISEASE W/HEART FAIL] Onset: 06-15-2021 Chronic Nutritional deficiencies (4 sources) Vitamin D deficiency, unspecified; Translations: [VITAMIN D DEFICIENCY UNSPECIFIED] Onset: 06-12-2021 Chronic Nutritional deficiencies (16 sources) Cobalamin deficiency; Translations: [Deficiency of other specified B group vitamins] 04-15-2022 Episodic Osteoarthritis (20 sources) Arthritis of right knee; Translations: [Unilateral primary osteoarthritis, right knee] Onset: 07-25-2021 Resolved: 02-07-2022 Chronic Osteoporosis (4 sources) Primary osteoporosis; Translations: [Age-related osteoporosis without current pathological fracture] Onset: 04-01-2023 Chronic Other aftercare (4 sources) Patient encounter status; Translations: [Aftercare following joint replacement surgery] Chronic Other aftercare (3 sources) Aftercare following joint replacement surgery Chronic Other aftercare (11 sources) Drug therapy finding; Translations: [Long-term (current) use of anticoagulants] Episodic Other aftercare (6 sources) Long-term current use of anticoagulant; Translations: [supervisor intermediates (current) use of anticoagulants] 04-16-2022 Episodic Other aftercare (4 sources) supervisor intermediates (current) use of anticoagulants; Translations: [Long-term (current) use of anticoagulants] Onset: 05-12-2023 04-28-2022 Episodic Other and ill-defined heart disease (11 sources) Left ventricular hypertrophy; Translations: [Cardiomegaly] Chronic Other and ill-defined heart disease (3 sources) Cardiomegaly; Translations: [CARDIOMEGALY] Onset: 06-15-2021 Chronic Other and unspecified benign neoplasm (1 source) Hemangioma of skin and subcutaneous tissue; Translations: [Hemangioma of skin and subcutaneous tissue] Onset: 07-22-2023 Episodic Other and unspecified benign neoplasm (1 source) Hemangioma of skin 07-22-2023 Episodic Other circulatory disease (6 sources) Low blood pressure; Translations: [Hypotension, unspecified] 04-18-2022 Episodic Other circulatory disease (1 source) Hypotension, unspecified; Translations: [Hypotension, unspecified] 04-28-2022 Episodic Other connective tissue disease (10 sources) History of total knee arthroplasty; Translations: [Presence of right artificial knee joint] 04-15-2022 Chronic Other connective tissue disease (5 sources) Presence of right artificial knee joint; Translations: [Knee joint replacement] 04-15-2022 Chronic Other connective tissue disease (5 sources) Artificial knee joint present; Translations: [Presence of right artificial knee joint] Chronic Other connective tissue disease (6 sources) Presence of left artificial knee joint; Translations: [Knee joint replacement] Chronic Other diseases of veins and lymphatics (13 sources) Lymphedema; Translations: [Lymphedema, not elsewhere classified] 05-12-2023 Chronic Other diseases of veins and lymphatics (7 sources) Lymphedema, not elsewhere classified; Translations: [Other lymphedema] Onset: 11-29-2021 Resolved: 01-31-2022 Chronic Other gastrointestinal disorders (3 sources) Chronic constipation 06-17-2023 Episodic Other lower respiratory disease (4 sources) Dyspnea; Translations: [Other respiratory abnormalities] Episodic Other nutritional; endocrine; and metabolic disorders (20 sources) Body mass index 40+ - severely obese; Translations: [Morbid obesity] 04-16-2022 Chronic Other nutritional; endocrine; and metabolic disorders (6 sources) Morbid (severe) obesity due to excess calories; Translations: [Morbid obesity] Onset: 05-12-2023 04-28-2022 Chronic Other nutritional; endocrine; and metabolic disorders (3 sources) Morbid obesity 06-23-2023 Chronic Other nutritional; endocrine; and metabolic disorders (1 source) Body mass index (BMI) 40.0-44.9, adult; Translations: [Body mass index [BMI] 40.0-44.9, adult] Onset: 05-12-2023 Chronic Other screening for suspected conditions (not mental disorders or infectious disease) (5 sources) Abnormal results of kidney function studies; Translations: [Encounter for screening for malignant neoplasm of prostate] Onset: 06-15-2021 Episodic Other skin disorders (3 sources) Epidermoid cyst; Translations: [Epidermal cyst] Onset: 06-23-2023 Episodic Other skin disorders (2 sources) Hypertrophic condition of skin; Translations: [Other hypertrophic disorders of the skin] Onset: 06-23-2023 Episodic Other skin disorders (3 sources) Epidermoid cyst of skin 06-23-2023 Episodic Other skin disorders (3 sources) Skin tag 06-23-2023 Episodic Other skin disorders (1 source) Epidermoid cyst of skin of neck 07-22-2023 Episodic Peripheral and visceral atherosclerosis (3 sources) Peripheral vascular disease 06-17-2023 Chronic Pulmonary heart disease (13 sources) Secondary pulmonary hypertension; Translations: [Other chronic pulmonary heart diseases] Onset: 04-24-2023 Chronic Residual codes; unclassified (11 sources) Sleep apnea; Translations: [Unspecified sleep apnea] Chronic Residual codes; unclassified (10 sources) Obstructive sleep apnea syndrome; Translations: [Obstructive sleep apnea (adult) (pediatric)] 04-14-2022 Chronic Residual codes; unclassified (8 sources) Obstructive sleep apnea (adult) (pediatric); Translations: [Obstructive sleep apnea (adult)(pediatric)] Onset: 04-24-2023 04-15-2022 Chronic Residual codes; unclassified (15 sources) Edema; Translations: [Edema] 04-14-2022 Episodic Residual codes; unclassified (6 sources) Bilateral lower limb edema; Translations: [Localized edema] 04-17-2022 Episodic Residual codes; unclassified (3 sources) Localized edema; Translations: [Edema] Onset: 04-24-2023 04-28-2022 Episodic Residual codes; unclassified (1 source) Other specified health status; Translations: [Other specified health status] Onset: 05-18-2023 Episodic Screening and history of mental health and substance abuse codes (11 sources) Ex-smoker; Translations: [Personal history of tobacco use] Episodic Comment on above: quit 2000, 07/07 PPD; Unclassified (3 sources) CONTACT W/AND (SUSP) EXPOS COVID-19; Translations: [CONTACT W/AND (SUSP) EXPOS COVID-19] Onset: 07-07-2021 Unclassified (1 source) Pain in left knee; Translations: [Pain in left knee] Onset: 07-03-2023 Unclassified (1 source) Unilateral primary osteoarthritis, left knee; Translations: [Unilateral primary osteoarthritis, left knee] Onset: 05-12-2023 Unclassified (1 source) Encounter for preprocedural laboratory examination; Translations: [Encounter for preprocedural laboratory examination] Onset: 04-28-2023 Unclassified (1 source) Presence of right artificial knee joint; Translations: [Presence of right artificial knee joint] Onset: 04-01-2023 Unclassified (2 sources) Permanent atrial fibrillation; Translations: [Permanent atrial fibrillation (CMS/HCC)] Onset: 08-18-2023 Past or Other Problems Problem Classification Problem Date Documented Da te Episodic/Chronic Diabetes mellitus without complication (1 source) Other abnormal glucose; Translations: [OTHER ABNORMAL GLUCOSE] Onset: 06-15-2021 Episodic Joint disorders and dislocations; trauma-related (2 sources) Complex tear of medial meniscus, current injury, right knee, initial encounter; Translations: [Other tear of lateral meniscus, current injury, right knee, initial encounter] Onset: 07-25-2021 Episodic Other aftercare (2 sources) Other supervisor intermediates (current) drug therapy; Translations: [Other supervisor intermediates (current) drug therapy] Onset: 04-01-2023 Episodic Other connective tissue disease (1 source) Prepatellar bursitis, right knee; Translations: [PREPATELLAR BURSITIS RIGHT KNEE] Onset: 07-25-2021 Episodic Other lower respiratory disease (4 sources) Dyspnea, unspecified; Translations: [Dyspnea, unspecified] Onset: 09-08-2022 Episodic Other non-traumatic joint disorders (4 sources) Pain in right knee; Translations: [PAIN IN RIGHT KNEE] Onset: 07-22-2021 Episodic Other non-traumatic joint disorders (1 source) Effusion, right knee; Translations: [EFFUSION RIGHT KNEE] Onset: 07-25-2021 Episodic Other non-traumatic joint disorders (2 sources) Pain in left knee; Translations: [Pain in left knee] Onset: 04-01-2023 Episodic Residual codes; unclassified (1 source) Edema, unspecified; Translations: [EDEMA UNSPECIFIED] Onset: 06-15-2021 Episodic Sprains and strains (1 source) Sprain of anterior cruciate ligament of right knee, initial encounter; Translations: [SPRAIN ACL RIGHT KNEE INITIAL ENC] Onset: 07-25-2021 Episodic Unclassified (1 source) CONTACT W/AND (SUSP) EXPOS COVID-19; Translations: [CONTACT W/AND (SUSP) EXPOS COVID-19] Onset: 07-01-2021 Results Test Name Value Interpretation Reference Range Facility Ambulatory Visit Summaryon 0 07-14-2023 Ambulatory Visit Summary [facility]IA[facility] PAYTON Osvaldo :1945 Visit Date:07/14/2023 Ambulatory Visit Instructions Your Diagnosis Inflamed skin tag Epidermal cyst Your Care Team Attending Physician - TRI VICKERS, John Mendoza Primary Care Physician - Real Dodd MD This Is Your Medications List Contact prescribing physician if questions or concerns allopurinol (allopurinol 300 mg Tab) apixaban (Eliquis 5 mg oral tablet) carvedilol (carvedilol 25 mg Tab) cholecalciferol (Vitamin D3 1000 intl units (25 mcg) Tab) cyanocobalamin (Vitamin B12 1000 mcg Tab) docusate (Colace 100 mg Cap) ferrous sulfate (ferrous sulfate 325 mg oral enteric coated tablet) folic acid (folic acid 1 mg Tab) furosemide (Lasix 40 mg Tab) melatonin (melatonin 5 mg oral tablet) omeprazole (omeprazole 20 mg Cap-DR) polyethylene glycol 3350 (MiraLax) Procedures Performed Arthroplasty of left knee, Arthroplasty of right knee, History of lumbar laminectomy, Partial resection of colon. What to do next Scheduled Follow-Up Appointments Thursday 1:40 PM EST With: John BARTLETT MD Where: General Surgery [facility] General Surgery Office/Clini c Noteon 07-14-2023 General Surgery Office/Clinic Note Chief Complaint in-office excisonal biopsy HPI Staff Presents for in-office excisional biopsy left arm and left neck lesions. Patient held Eliquis for 2 days. History of Present Illness here for excision of neck skin tag and left arm subcutaneous nodule; no change from recent evaluation; held Eliquis for 2 days. Review of Systems ROS - Provider Constitutional: no fever, no sweats, no weight loss. Eyes: no glasses, no blurred vision, no visual loss. ENMT: no dentures, no hoarseness, no swallowing difficulties, no hearing loss, no ear infection(s), no nose bleeds. Cardiovascular: normal blood pressure, no chest pain, regular heartbeat, no heart murmur. Respiratory: no shortness of breath, no cough, no asthma, no wheezing. Gastrointestinal: no nausea, no vomiting, no diarrhea, no constipation, no blood in stool, no change in bowel habits, no abdominal pain, no hepatitis. Genitourinary: no kidney stones, no urine infection, no dysuria. Musculoskeletal: no pain, no weakness. Skin: no changing moles, no rash, no skin lumps. Neurologic: no seizures, no epilepsy, no headache. Psychiatric: no emotional or psychiatric problem. Heme/Lymph: no bleeding problems, no anemia, no blood clots, no transfusions. Allergy/Immunologic: no swollen lymph nodes/glands, no IV drug abuse. Other: Additional ROS info: Except as noted in the above Review of Systems and in the History of Present Illness, all other systems have been reviewed and are negative or noncontributory. Procedure patient brought to the procedure room, placed in supine position, area prepped and draped in sterile fashion; anesthetized with 1 % lidocaine; neck lesion excised in elliptical fashion down to subcutaneous fat; closed with interrupted 4-0 nylon sutures; total length 2 cm tolerated well; left upper extremity lesion excised and closed in an identical fashion, total length 1.5 cm; ebl < 3 ml; sterile dressing applied. Assessment/Plan 1. Inflamed skin tag (L91.8: Other hypertrophic disorders of the skin) excised under local anesthesia, tolerated well; f/u next week for suture removal. 2. Epidermal cyst (L72.0: Epidermal cyst) see # 1 Follow-up No qualifying data available Problem List/Past Medical History Ongoing Acquired lymphedema Atherosclerotic PVD with intermittent claudication Atrial fibrillation BMI 40.0-44.9, adult Chronic constipation Epidermal cyst Gout History of colon cancer HTN (hypertension) Inflamed skin tag Morbid obesity TATIANA (obstructive sleep apnea) Historical No qualifying data Procedure/Surgical History Arthroplasty of left knee, Arthroplasty of right knee, History of lumbar laminectomy, Partial resection of colon. Medications allopurinol 300 mg Tab, 300 mg= 1 tab(s), Oral, Daily carvedilol 25 mg Tab, 25 mg= 1 tab(s), Oral, BID Colace 100 mg Cap, 100 mg= 1 cap(s), Oral, Daily, PRN Eliquis 5 mg oral tablet, 5 mg= 1 tab(s), Oral, BID ferrous sulfate 325 mg oral enteric coated tablet, 325 mg= 1 tab(s), Oral, Daily folic acid 1 mg Tab, 1 mg= 1 tab(s), Oral, Daily Lasix 40 mg Tab, 40 mg= 1 tab(s), Oral, Daily melatonin 5 mg oral tablet, 5 mg= 1 tab(s), Oral, Once a day (at bedtime), PRN MiraLax, 17 gm, Oral, Daily omeprazole 20 mg Cap-DR, 20 mg= 1 cap(s), Oral, Daily Vitamin B12 1000 mcg Tab, 1000 mcg= 1 tab(s), Oral, Daily Vitamin D3 1000 intl units (25 mcg) Tab, 25 mcg= 1 tab(s), Oral, Daily Allergies Kenalog (Anaphylaxis) Social History Alcohol Current, Beer, Daily, 06/23/2023 Substance Abuse - Denies Substance Abuse, 06/23/2023 Tobacco Former smoker, quit more than 30 days ago Tobacco Use:. Never Smokeless Tobacco Use:. Cigarettes, 0.5 per day. Started age 17.0 Years. Stopped age 57 Years., 06/23/2023 Family History Cardiac arrest: Mother and Father. Immunizations Vaccine Date Status Comments influenza virus vaccine, inactivated 04/09/2023 Recorded SARS-CoV-2 (COVID-19) [id number] 04/10/2022 Recorded SARSCoV2 mRNA(wxpyiotfz-lang-zymjrb) vac 01/10/2022 Recorded SARS-CoV-2 (COVID-19) mRNA BNT-162b2 vax 03/30/2021 Recorded 2023-06-17: [id number] SARS-CoV-2 (COVID-19) mRNA BNT-162b2 vax 08/24/2020 Recorded 2023-06-17: [id number] SARS-CoV-2 (COVID-19) mRNA BNT-162b2 vax 08/17/2020 Recorded SARS-CoV-2 (COVID-19) mRNA BNT-162b2 vax 08/03/2020 Recorded 2023-06-17: [id number] SARS-CoV-2 (COVID-19) mRNA BNT-162b2 vax 07/27/2020 Recorded [facility] Comment on above: Result Comment: Elec tronically Signed By: TRI VICKERS, John Echevarria\Date and Time Signed: 07/14/23 14:19 EST Insurance Correspondenceon 0 07-09-2023 Insurance Correspondence [id number]#[id number] [facility] General Surgery Office/Clini c Noteon 07-07-2023 General Surgery Office/Clinic Note Chief Complaint in-office excisional biopsy x 2 History of Present Illness patient did not hold Eliquis, therefore procedures rescheduled. Assessment/Plan 1. Inflamed skin tag (L91.8: Other hypertrophic disorders of the skin) Ordered: Forms Charge 2. Epidermal cyst (L72.0: Epidermal cyst) Ordered: Forms Charge Follow-up No qualifying data available Problem List/Past Medical History Ongoing Acquired lymphedema Atherosclerotic PVD with intermittent claudication Atrial fibrillation BMI 40.0-44.9, adult Chronic constipation Epidermal cyst Gout History of colon cancer HTN (hypertension) Inflamed skin tag Morbid obesity TATIANA (obstructive sleep apnea) Historical No qualifying data Procedure/Surgical History Arthroplasty of left knee, Arthroplasty of right knee, History of lumbar laminectomy, Partial resection of colon. Medications allopurinol 300 mg Tab, 300 mg= 1 tab(s), Oral, Daily carvedilol 25 mg Tab, 25 mg= 1 tab(s), Oral, BID Colace 100 mg Cap, 100 mg= 1 cap(s), Oral, Daily, PRN Eliquis 5 mg oral tablet, 5 mg= 1 tab(s), Oral, BID ferrous sulfate 325 mg oral enteric coated tablet, 325 mg= 1 tab(s), Oral, Daily folic acid 1 mg Tab, 1 mg= 1 tab(s), Oral, Daily Lasix 40 mg Tab, 40 mg= 1 tab(s), Oral, Daily melatonin 5 mg oral tablet, 5 mg= 1 tab(s), Oral, Once a day (at bedtime), PRN MiraLax, 17 gm, Oral, Daily omeprazole 20 mg Cap-DR, 20 mg= 1 cap(s), Oral, Daily Vitamin B12 1000 mcg Tab, 1000 mcg= 1 tab(s), Oral, Daily Vitamin D3 1000 intl units (25 mcg) Tab, 25 mcg= 1 tab(s), Oral, Daily Allergies Kenalog (Anaphylaxis) Social History Alcohol Current, Beer, Daily, 06/23/2023 Substance Abuse - Denies Substance Abuse, 06/23/2023 Tobacco Former smoker, quit more than 30 days ago Tobacco Use:. Never Smokeless Tobacco Use:. Cigarettes, 0.5 per day. Started age 17.0 Years. Stopped age 57 Years., 06/23/2023 Family History Cardiac arrest: Mother and Father. Immunizations Vaccine Date Status Comments influenza virus vaccine, inactivated 04/09/2023 Recorded SARS-CoV-2 (COVID-19) [id number] 04/10/2022 Recorded SARSCoV2 mRNA(cmrfwharj-mehz-kvyiur) vac 01/10/2022 Recorded SARS-CoV-2 (COVID-19) mRNA BNT-162b2 vax 03/30/2021 Recorded 2023-06-17: [id number] SARS-CoV-2 (COVID-19) mRNA BNT-162b2 vax 08/24/2020 Recorded 2023-06-17: [id number] SARS-CoV-2 (COVID-19) mRNA BNT-162b2 vax 08/17/2020 Recorded SARS-CoV-2 (COVID-19) mRNA BNT-162b2 vax 08/03/2020 Recorded 2023-06-17: [id number] SARS-CoV-2 (COVID-19) mRNA BNT-162b2 vax 07/27/2020 Recorded [facility] Comment on above: Result Comment: Elec tronically Signed By: TRI VICKERS, John Mendoza\.br\Date and Time Signed: 07/07/23 15:22 EST Facesheeton 06-24-2023 Facesheet [id number]#1.00TIFF [facility] Ambulatory Visit Summaryon 1 08-24-2022 Ambulatory Visit Summary AL KUO :1945 Visit Date:06/23/2023 Ambulatory Visit Instructions Your Care Team Attending Physician - John BARTLETT MD Primary Care Physician - Real Dodd MD This Is Your Medications List Contact prescribing physician if questions or concerns allopurinol (allopurinol 300 mg Tab) apixaban (Eliquis 5 mg oral tablet) carvedilol (carvedilol 25 mg Tab) cholecalciferol (Vitamin D3 1000 intl units (25 mcg) Tab) cyanocobalamin (Vitamin B12 1000 mcg Tab) docusate (Colace 100 mg Cap) ferrous sulfate (ferrous sulfate 325 mg oral enteric coated tablet) folic acid (folic acid 1 mg Tab) furosemide (Lasix 40 mg Tab) melatonin (melatonin 5 mg oral tablet) omeprazole (omeprazole 20 mg Cap-DR) polyethylene glycol 3350 (MiraLax) Procedures Performed Arthroplasty of left knee, Arthroplasty of right knee, History of lumbar laminectomy, Partial resection of colon. Discharge Vitals Heart Rate (Peripheral) 72 Respiratory Rate 16 Blood Pressure 126/88 Height 177.8 cm Height 70 in Weight 134 kg Weight 294.8 lb BMI 42.39 What to do next Scheduled Follow-Up Appointments Thursday 1:40 PM EST With: John BARTLETT MD Where: General Surgery [facility] Physician Referralon 023 Physician Referral [id number]#1.00TIFF [facility] Physician Referralon 023 Physician Referral [id number]#[id number] [facility] US venous duplex LE BIon US venous duplex LE BI [facility] [place] [address] Ultrasound Report Signed Patient: Al Kuo MR#: [id number] : 1945 Acct:[id number] Age/Sex: 77 / M ADM Date: 05/18/23 Loc: Room: 0J5253-8 Type: ADM IN Attending Dr: Delmer Whyte MD Ordering Provider: Delmer Whyte MD Date of Service: 05/25/23 US/US venous duplex LE BI: r/o DVT, warm/swollen, postop Copies to: Delmer Whyte MD BILATERAL LOWER EXTREMITY VENOUS DUPLEX INDICATION: Bilateral lower extremity edema, pain and tenderness. Recent left knee surgery. PROCEDURE: Color-flow duplex scanning is used to interrogate the deep venous system of the right and left lower extremities. The common femoral vein, femoral vein and popliteal vein show good compressibility with normal proximal and distal augmentation. The calf veins are compressible. US/US venous duplex LE BI IMPRESSION: NO EVIDENCE FOR DEEP VEIN THROMBOSIS OR PROXIMAL SUPERFICIAL THROMBOPHLEBITIS IN THE RIGHT OR LEFT LOWER EXTREMITY. Impression dictated by: Daniel Hirsch MD05/26/2023 8:58 AM Dictation Location: [facility] Tech: Gardenia Lopez Transcribed By: GIULIA 05/26/23857 Dictated By: Daniel Hirsch MD 05/26/2357 Signed By: 05/26/23857 Normal [facility] Alanine aminotransferase [En zymatic activity/volume] in Serum or PlasmaOrdered By: Omar Jackman on 05-19-2023 ALT [Catalytic activity/Vol] 8 U/L 7 [facility] Albumin [Mass/volume] in Ser um or Plasma by Bromocresol green (BCG) dye binding methoOrdered By: Omar Jackman on 05-19-2023 Albumin BCG dye [Mass/Vol] 3.1 g/dL 3.5-5.7 [facility] Alkaline phosphatase [Enzyma tic activity/volume] in Serum or PlasmaOrdered By: Omar Jackman on 05-19-2023 ALP [Catalytic activity/Vol] 42 U/L 34-104 [facility] Aspartate aminotransferase [ Enzymatic activity/volume] in Serum or PlasmaOrdered By: Omar Jackman on 05-19-2023 AST [Catalytic activity/Vol] 8 U/L 13-39 [facility] Basophils Auto (Bld) [#/Vol] Ordered By: Omar Jackman on 05-19-2023 Basophils (Bld) [#/Vol] 0.0 10*3/uL 0.0-0.2 [facility] Basophils/100 WBC Auto (Bld) Ordered By: Omar Jackman on 05-19-2023 Basophils/100 WBC (Bld) 0.3 % . [facility] Bilirubin.total [Mass/volume ] in Serum or PlasmaOrdered By: Omar Jackman on 05-19-2023 Bilirubin [Mass/Vol] 1.0 mg/dL 0.3-1.0 [facility] Calcium [Mass/volume] in Ser um or PlasmaOrdered By: Omar Jackman on 05-19-2023 Calcium [Mass/Vol] 8.6 mg/dL 8.6-10.3 [facility] Carbon dioxide, total [Moles /volume] in Serum or PlasmaOrdered By: Omar Jackman on 05-19-2023 CO2 [Moles/Vol] 30.0 mmol/L 21.0-31.0 [facility] Chloride [Moles/volume] in S gary or PlasmaOrdered By: Omar Jackman on 05-19-2023 Chloride [Moles/Vol] 101 mmol/L 98-107 [facility] Complete Blood Count Auto Di ffon 05-19-2023 Basophils (Bld) [#/Vol] 0.0 10*3/uL Normal 0.0-0.2 [facility] Comment on above: Result Comment: PERF ORMED BY: [place] [address] PATHOLOGIST STRATEGIC PLANNING ANALYST ISMAEL HERNANDEZ M.D. Performed By: #### C UMRSA, A1C WTH eA, HGB, [id number], ALB #### [place] [address] [place] #### NICOTINE #### [facility] , Basophils/100 WBC (Bld) 0.3 % Normal . [facility] Comment on above: Performed By: #### C UMRSA, A1C WTH eA, HGB, [id number], ALB #### [address] #### NICOTINE #### [facility] , Eosinophils (Bld) [#/Vol] 0.2 10*3/uL Normal 0.0-0.45 [facility] Comment on above: Performed By: #### C UMRSA, A1C WTH eA, HGB, [id number], ALB #### [place] [address] [place] #### NICOTINE #### [facility] , Eosinophils/100 WBC (Bld) 2.2 % Normal . [facility] Comment on above: Performed By: #### C UMRSA, A1C WTH eA, HGB, [id number], ALB #### [place] [address] [place] #### NICOTINE #### [facility] , Erythrocyte distribution width (RBC) [Ratio] 14.3 % Normal 12.0-14.8 [facility] Comment on above: Performed By: #### C UMRSA, A1C WTH eA, HGB, [id number], ALB #### [place] [address] [place] #### NICOTINE #### [facility] , Hematocrit (Bld) [Volume fraction] 27.5 % Low 38.8-50.0 [facility] Comment on above: Performed By: #### C UMRSA, A1C WTH eA, HGB, [id number], ALB #### [address] #### NICOTINE #### [facility] , Hemoglobin (Bld) [Mass/Vol] 9.7 g/dL Low 13.0-17.0 [facility] Comment on above: Performed By: #### C UMRSA, A1C WTH eA, HGB, [id number], ALB #### [place] [address] [place] #### NICOTINE #### [facility] , Lymphocytes (Bld) [#/Vol] 1.2 10*3/uL Normal 1.00-4.8 [facility] Comment on above: Performed By: #### C UMRSA, A1C WTH eA, HGB, [id number], ALB #### [place] [address] [place] #### NICOTINE #### [facility] , Lymphocytes/100 WBC (Bld) 11.5 % Normal . [facility] Comment on above: Performed By: #### C UMRSA, A1C WTH eA, HGB, [id number], ALB #### [place] [address] [place] #### NICOTINE #### [facility] , MCH (RBC) [Entitic mass] 36.2 pg High 27.5-35.2 [facility] Comment on above: Performed By: #### C UMRSA, A1C WTH eA, HGB, [id number], ALB #### [place] [address] [place] #### NICOTINE #### [facility] , MCV (RBC) [Entitic vol] 103.1 fL High 83.5-101 [facility] Comment on above: Performed By: #### C UMRSA, A1C WTH eA, HGB, [id number], ALB #### [facility] [address] [place] [address] [place] #### NICOTINE #### [facility] , Mean Corpuscular HGB Conc 35.1 g/dL Normal 32.5-35.6 [facility] Comment on above: Performed By: #### C UMRSA, A1C WTH eA, HGB, [id number], ALB #### [facility] [address] [place] [address] [place] #### NICOTINE #### [facility] , Monocytes (Bld) [#/Vol] 1.0 10*3/uL High 0.0-0.8 [facility] Comment on above: Performed By: #### C UMRSA, A1C WTH eA, HGB, [id number], ALB #### [facility] [address] [place] [address] [place] #### NICOTINE #### [facility] , Monocytes/100 WBC (Bld) 9.4 % Normal . [facility] Comment on above: Performed By: #### C UMRSA, A1C WTH eA, HGB, [id number], ALB #### [facility] [address] [place] [address] [place] #### NICOTINE #### [facility] , Neutrophils (Bld) [#/Vol] 8.1 10*3/uL High 1.8-7.7 [facility] Comment on above: Performed By: #### C UMRSA, A1C WTH eA, HGB, [id number], ALB #### [facility] [address] [place] [address] [place] #### NICOTINE #### [facility] , Neutrophils/100 WBC (Bld) 76.6 % Normal . [facility] Comment on above: Performed By: #### C UMRSA, A1C WTH eA, HGB, [id number], ALB #### [facility] [address] [place] [address] [place] #### NICOTINE #### [facility] , NRBC% 0.1 /100{WBC} Normal 0-0.5 [facility] Comment on above: Performed By: #### C UMRSA, A1C WTH eA, HGB, [id number], ALB #### [facility] [address] [place] [address] [place] #### NICOTINE #### [facility] , Platelet mean volume (Bld) [Entitic vol] 8.3 fL Normal 6.6-10.1 [facility] Comment on above: Performed By: #### C UMRSA, A1C WTH eA, HGB, [id number], ALB #### [facility] [address] [place] [address] [place] #### NICOTINE #### [facility] , Platelets (Bld) [#/Vol] 149 10*3/uL Low 150-450 [facility] Comment on above: Performed By: #### C UMRSA, A1C WTH eA, HGB, [id number], ALB #### [address] #### NICOTINE #### [facility] , RBC (Bld) [#/Vol] 2.67 10*6/uL Low 3.90-5.60 [facility] Comment on above: Performed By: #### C UMRSA, A1C WTH eA, HGB, [id number], ALB #### [facility] [address] [place] [address] [place] #### NICOTINE #### [facility] , WBC (Bld) [#/Vol] 10.5 10*3/uL Normal 4.1-10.5 [facility] Comment on above: Performed By: #### C UMRSA, A1C WTH eA, HGB, [id number], ALB #### [facility] [address] [place] [address] [place] #### NICOTINE #### [facility] , Comprehensive Metabolic Pane costa 05-19-2023 Albumin [Mass/Vol] 3.1 g/dL Low 3.5-5.7 [facility] Comment on above: Performed By: #### C UMRSA, A1C WTH eA, HGB, [id number], ALB #### [facility] [address] [place] [address] [place] #### NICOTINE #### [facility] , Albumin/Globulin [Mass ratio] 1.3 {ratio} Normal [facility] Comment on above: Performed By: #### C UMRSA, A1C WTH eA, HGB, [id number], ALB #### [facility] [address] [place] [address] [place] #### NICOTINE #### [facility] , ALP [Catalytic activity/Vol] 42 U/L Normal 34-104 [facility] Comment on above: Performed By: #### C UMRSA, A1C WTH eA, HGB, [id number], ALB #### [facility] [address] [place] [address] [place] #### NICOTINE #### [facility] , ALT [Catalytic activity/Vol] 8 U/L Normal 7-52 [facility] Comment on above: Performed By: #### C UMRSA, A1C WTH eA, HGB, [id number], ALB #### [facility] [address] [place] [address] [place] #### NICOTINE #### [facility] , Anion gap [Moles/Vol] 8.3 mmol/L Normal 6.0-15.0 [facility] Comment on above: Performed By: #### C UMRSA, A1C WTH eA, HGB, [id number], ALB #### [facility] [address] [place] [address] [place] #### NICOTINE #### [facility] , AST [Catalytic activity/Vol] 8 U/L Low 13-39 [facility] Comment on above: Performed By: #### C UMRSA, A1C WTH eA, HGB, [id number], ALB #### [facility] [address] [place] [address] [place] #### NICOTINE #### [facility] , Bilirubin [Mass/Vol] 1.0 mg/dL Normal 0.3-1.0 [facility] Comment on above: Performed By: #### C UMRSA, A1C WTH eA, HGB, [id number], ALB #### [facility] [address] [place] [address] #### NICOTINE #### [facility] , Calcium [Mass/Vol] 8.6 mg/dL Normal 8.6-10.3 [facility] Comment on above: Performed By: #### C UMRSA, A1C WTH eA, HGB, [id number], ALB #### [place] [address] [place] #### NICOTINE #### [facility] , Chloride [Moles/Vol] 101 mmol/L Normal 98-107 [facility] Comment on above: Performed By: #### C UMRSA, A1C WTH eA, HGB, [id number], ALB #### [facility] [address] [place] [address] [place] #### NICOTINE #### [facility] , CO2 [Moles/Vol] 30.0 mmol/L Normal 21.0-31.0 [facility] Comment on above: Performed By: #### C UMRSA, A1C WTH eA, HGB, [id number], ALB #### [facility] [address] [place] [address] [place] #### NICOTINE #### [facility] , Creatinine [Mass/Vol] 0.94 mg/dL Normal 0.70-1.30 [facility] Comment on above: Performed By: #### C UMRSA, A1C WTH eA, HGB, [id number], ALB #### [facility] [address] [place] [address] [place] #### NICOTINE #### [facility] , Creatinine Clr Calc Pharmacy 90.14 [facility] Comment on above: Performed By: #### C UMRSA, A1C WTH eA, HGB, [id number], ALB #### [place] [address] [place] #### NICOTINE #### [facility] , GFR/1.73 sq M.predicted MDRD (S/P/Bld) [Vol rate/Area] mL/min/{1.73_m2} [facility] Comment on above: Performed By: #### C UMRSA, A1C WTH eA, HGB, [id number], ALB #### [place] [address] [place] #### NICOTINE #### [facility] , Globulin (S) [Mass/Vol] 2.4 g/dL [facility] Comment on above: Performed By: #### C UMRSA, A1C WTH eA, HGB, [id number], ALB #### [facility] [address] [place] [address] [place] #### NICOTINE #### [facility] , Glucose [Mass/Vol] 113 mg/dL High 70-100 [facility] Comment on above: Result Comment: [place] Glucose Reference Range is dependent on time and content of last meal. Glucose of more than 200 mg/dL in a nonstressed, ambulatory subject supports the diagnosis of Diabetes Mellitus. ADA recommended reference range Performed By: #### C UMRSA, A1C WTH eA, HGB, [id number], ALB #### [place] [address] [place] #### NICOTINE #### [facility] , Potassium [Moles/Vol] 4.3 mmol/L Normal 3.5-5.1 [facility] Comment on above: Performed By: #### C UMRSA, A1C WTH eA, HGB, [id number], ALB #### [facility] [address] [place] [address] [place] #### NICOTINE #### [facility] , Protein [Mass/Vol] 5.5 g/dL Low 6.4-8.9 [facility] Comment on above: Performed By: #### C UMRSA, A1C WTH eA, HGB, [id number], ALB #### [facility] [address] [place] [address] [place] #### NICOTINE #### [facility] , Sodium [Moles/Vol] 135 mmol/L Low 136-145 [facility] Comment on above: Performed By: #### C UMRSA, A1C WTH eA, HGB, [id number], ALB #### [facility] [address] [place] [address] [place] #### NICOTINE #### [facility] , Urea nitrogen [Mass/Vol] 25 mg/dL Normal 7-25 [facility] Comment on above: Performed By: #### C UMRSA, A1C WTH eA, HGB, [id number], ALB #### [facility] [address] [place] [address] [place] #### NICOTINE #### [facility] , Creatinine [Mass/volume] in Serum or PlasmaOrdered By: Omar Jackman on 05-19-2023 Creatinine [Mass/Vol] 0.94 mg/dL 0.70-1.30 [facility] Eosinophils Auto (Bld) [#/Vo l]Ordered By: Omar Jackman on 05-19-2023 Eosinophils (Bld) [#/Vol] 0.2 10*3/uL 0.0-0.45 [facility] Eosinophils/100 WBC Auto (Bl d)Ordered By: Omar Jackman on 05-19-2023 Eosinophils/100 WBC (Bld) 2.2 % . [facility] Erythrocyte distribution wid th Auto (RBC) [Ratio]Ordered By: Omar Jackman on 05-19-2023 Erythrocyte distribution width (RBC) [Ratio] 14.3 % 12.0-14.8 [facility] Globulin Calc (S) [Mass/Vol] Ordered By: Omar Jackman on 05-19-2023 Globulin (S) [Mass/Vol] 2.4 g/dL [facility] Glucose [Mass/volume] in Ser um or PlasmaOrdered By: Omar Jackman on 05-19-2023 Glucose [Mass/Vol] 113 mg/dL 70-100 [facility] Comment on above: ADA recommended refe rence rangeRandom Glucose Reference Range is dependent on time and content of last meal. Glucose of more than 200 mg/dL in a nonstressed, ambulatory subject supports the diagnosis of Diabetes Mellitus. Hematocrit Auto (Bld) [Volum e fraction]Ordered By: Omar Jackman on 05-19-2023 Hematocrit (Bld) [Volume fraction] 27.5 % 38.8-50.0 [facility] Hemoglobin [Mass/volume] in BloodOrdered By: Omar Jackman on 05-19-2023 Hemoglobin (Bld) [Mass/Vol] 9.7 g/dL 13.0-17.0 [facility] Leukocytes [#/volume] correc karl for nucleated erythrocytes in Blood by Automated counOrdered By: Omar Jackman on 05-19-2023 WBC corrected for nucl RBC Auto (Bld) [#/Vol] 10.5 10*3/uL 4.1-10.5 [facility] Lymphocytes Auto (Bld) [#/Vo l]Ordered By: Omar Jackman on 05-19-2023 Lymphocytes (Bld) [#/Vol] 1.2 10*3/uL 1.00-4.8 [facility] Lymphocytes/100 WBC Auto (Bl d)Ordered By: Omar Jackman on 11-14-2023 Lymphocytes/100 WBC (Bld) 11.5 % . [facility] MCH Auto (RBC) [Entitic mass ]Ordered By: Omar Jackman on 05-19-2023 MCH (RBC) [Entitic mass] 36.2 pg 27.5-35.2 [facility] MCHC Auto (RBC) [Mass/Vol]Or dered By: Omar Jackman on 05-19-2023 MCHC (RBC) [Mass/Vol] 35.1 g/dL 32.5-35.6 [facility] MCV Auto (RBC) [Entitic vol] Ordered By: Omar Jackman on 05-19-2023 MCV (RBC) [Entitic vol] 103.1 fL 83.5-101 [facility] Monocytes Auto (Bld) [#/Vol] Ordered By: Omar Jackman on 05-19-2023 Monocytes (Bld) [#/Vol] 1.0 10*3/uL 0.0-0.8 [facility] Monocytes/100 WBC Auto (Bld) Ordered By: Omar Jackman on 05-19-2023 Monocytes/100 WBC (Bld) 9.4 % . [facility] Neutrophils Auto (Bld) [#/Vo l]Ordered By: Omar Jackman on 05-19-2023 Neutrophils (Bld) [#/Vol] 8.1 10*3/uL 1.8-7.7 [facility] Neutrophils/100 WBC Auto (Bl d)Ordered By: Omar Jackman on 05-19-2023 Neutrophils/100 WBC (Bld) 76.6 % . [facility] No Panel InformationOrdered By: Omar Jackman on 05-19-2023 Estimated GFR (CKD-EPI) > 60.0 mL/Min [facility] Creatinine Clearance (Chem 90.14 [facility] Nucleated erythrocytes [Pres ence] in Blood by Automated countOrdered By: Omar Jackman on 05-19-2023 Nucleated RBC Auto Ql (Bld) 0.1 /100{WBC} 0-0.5 [facility] Platelet mean volume Auto (B ld) [Entitic vol]Ordered By: Omar Jackman on 05-19-2023 Platelet mean volume (Bld) [Entitic vol] 8.3 fL 6.6-10.1 [facility] Platelets Auto (Bld) [#/Vol] Ordered By: Omar Jackman on 05-19-2023 Platelets (Bld) [#/Vol] 149 10*3/uL 150-450 [facility] Potassium [Moles/volume] in Serum or PlasmaOrdered By: Omar Jackman on 05-19-2023 Potassium [Moles/Vol] 4.3 mmol/L 3.5-5.1 [facility] Prealbuminon 05-19-2023 Prealbumin [Mass/Vol] 14.3 mg/dL Low 17.0-34.0 [facility] Comment on above: Result Comment: PERF ORMED BY: [place] [address] PATHOLOGIST STRATEGIC PLANNING ANALYST ISMAEL HERNANDEZ M.D. Performed By: #### C UMRSA, A1C WTH eA, HGB, [id number], ALB #### [address] #### NICOTINE #### [facility] , Prealbumin [Mass/volume] in Serum or PlasmaOrdered By: Omar Jackman on 05-19-2023 Prealbumin [Mass/Vol] 14.3 mg/dL 17.0-34.0 [facility] Protein [Mass/volume] in Ser um or PlasmaOrdered By: Omar Jackman on 05-19-2023 Protein [Mass/Vol] 5.5 g/dL 6.4-8.9 [facility] RBC Auto (Bld) [#/Vol]Ordere d By: Omar Jackman on 05-19-2023 RBC (Bld) [#/Vol] 2.67 10*6/uL 3.90-5.60 [facility] Serum or plasma albumin/glob ulin mass ratioOrdered By: Omar Jackman on 05-19-2023 Albumin/Globulin [Mass ratio] 1.3 {ratio} [facility] Serum or plasma anion gap de terminationOrdered By: Omar Jackman on 05-19-2023 Anion gap [Moles/Vol] 8.3 mmol/L 6.0-15.0 [facility] Sodium [Moles/volume] in Ser um or PlasmaOrdered By: Omar Jackman on 05-19-2023 Sodium [Moles/Vol] 135 mmol/L 136-145 [facility] Urea nitrogen [Mass/volume] in Serum or PlasmaOrdered By: Omar Jackman on 05-19-2023 Urea nitrogen [Mass/Vol] 25 mg/dL 7-25 [facility] WBC Auto (Bld) [#/Vol]Ordere d By: Omar Jackman on 05-19-2023 WBC (Bld) [#/Vol] 10.5 10*3/uL 4.1-10.5 [facility] Basic Metabolic Panelon 110 Anion gap [Moles/Vol] 6.2 mmol/L Normal 6.0-15.0 [facility] Comment on above: Performed By: #### C UMRSA, A1C WTH eA, HGB, [id number], ALB #### [facility] [address] [place] [address] [place] #### NICOTINE #### [facility] , Calcium [Mass/Vol] 8.7 mg/dL Normal 8.6-10.3 [facility] Comment on above: Performed By: #### C UMRSA, A1C WTH eA, HGB, [id number], ALB #### [facility] [address] [place] [address] [place] #### NICOTINE #### [facility] , Chloride [Moles/Vol] 104 mmol/L Normal 98-107 [facility] Comment on above: Performed By: #### C UMRSA, A1C WTH eA, HGB, [id number], ALB #### [facility] [address] [place] [address] [place] #### NICOTINE #### [facility] , CO2 [Moles/Vol] 32.7 mmol/L High 21.0-31.0 [facility] Comment on above: Performed By: #### C UMRSA, A1C WTH eA, HGB, [id number], ALB #### [facility] [address] [place] [address] [place] #### NICOTINE #### [facility] , Creatinine [Mass/Vol] 1.17 mg/dL Normal 0.70-1.30 [facility] Comment on above: Performed By: #### C UMRSA, A1C WTH eA, HGB, [id number], ALB #### [facility] [address] [place] [address] #### NICOTINE #### [facility] , Creatinine Clr Calc Pharmacy 71.91 [facility] Comment on above: Result Comment: PERF ORMED BY: [place] [address] PATHOLOGIST STRATEGIC PLANNING ANALYST ISMAEL HERNANDEZ M.D. Performed By: #### C UMRSA, A1C WTH eA, HGB, [id number], ALB #### [address] #### NICOTINE #### [facility] , GFR/1.73 sq M.predicted MDRD (S/P/Bld) [Vol rate/Area] mL/min/{1.73_m2} [facility] Comment on above: Performed By: #### C UMRSA, A1C WTH eA, HGB, [id number], ALB #### [facility] [address] [place] [address] [place] #### NICOTINE #### [facility] , Glucose [Mass/Vol] 131 mg/dL High 70-100 [facility] Comment on above: Result Comment: [place] om Glucose Reference Range is dependent on time and content of last meal. Glucose of more than 200 mg/dL in a nonstressed, ambulatory subject supports the diagnosis of Diabetes Mellitus. ADA recommended reference range Performed By: #### C UMRSA, A1C WTH eA, HGB, [id number], ALB #### [facility] [address] [place] [address] [place] #### NICOTINE #### [facility] , Potassium [Moles/Vol] 4.9 mmol/L Normal 3.5-5.1 [facility] Comment on above: Performed By: #### C UMRSA, A1C WTH eA, HGB, [id number], ALB #### [facility] [address] [place] [address] [place] #### NICOTINE #### [facility] , Sodium [Moles/Vol] 138 mmol/L Normal 136-145 [facility] Comment on above: Performed By: #### C UMRSA, A1C WTH eA, HGB, [id number], ALB #### [facility] [address] [place] [address] [place] #### NICOTINE #### [facility] , Urea nitrogen [Mass/Vol] 29 mg/dL High 7-25 [facility] Comment on above: Performed By: #### C UMRSA, A1C WTH eA, HGB, [id number], ALB #### [facility] [address] [place] [address] [place] #### NICOTINE #### [facility] , Basophils Auto (Bld) [#/Vol] Ordered By: Andrea Govea on 05-14-2023 Basophils (Bld) [#/Vol] 0.0 10*3/uL 0.0-0.2 [facility] Basophils/100 WBC Auto (Bld) Ordered By: Andrea Govea on 05-14-2023 Basophils/100 WBC (Bld) 0.1 % . [facility] Calcium [Mass/volume] in Ser um or PlasmaOrdered By: Andrea Govea on 05-14-2023 Calcium [Mass/Vol] 8.7 mg/dL 8.6-10.3 [facility] Carbon dioxide, total [Moles /volume] in Serum or PlasmaOrdered By: Andrea Govea on 05-14-2023 CO2 [Moles/Vol] 32.7 mmol/L 21.0-31.0 [facility] Chloride [Moles/volume] in S gary or PlasmaOrdered By: Andrea Govea on 05-14-2023 Chloride [Moles/Vol] 104 mmol/L 98-107 [facility] Complete Blood Count Auto Di ffon 05-14-2023 Basophils (Bld) [#/Vol] 0.0 10*3/uL Normal 0.0-0.2 [facility] Comment on above: Result Comment: PERF ORMED BY: [place] [address] PATHOLOGIST STRATEGIC PLANNING ANALYST ISMAEL HERNANDEZ M.D. Performed By: #### C UMRSA, A1C WTH eA, HGB, [id number], ALB #### [address] #### NICOTINE #### [facility] , Basophils/100 WBC (Bld) 0.1 % Normal . [facility] Comment on above: Performed By: #### C UMRSA, A1C WTH eA, HGB, [id number], ALB #### [address] #### NICOTINE #### [facility] , Eosinophils (Bld) [#/Vol] 0.0 10*3/uL Normal 0.0-0.45 [facility] Comment on above: Performed By: #### C UMRSA, A1C WTH eA, HGB, [id number], ALB #### [facility] [address] [place] [address] [place] #### NICOTINE #### [facility] , Eosinophils/100 WBC (Bld) 0.1 % Normal . [facility] Comment on above: Performed By: #### C UMRSA, A1C WTH eA, HGB, [id number], ALB #### [place] [address] [place] #### NICOTINE #### [facility] , Erythrocyte distribution width (RBC) [Ratio] 14.5 % Normal 12.0-14.8 [facility] Comment on above: Performed By: #### C UMRSA, A1C WTH eA, HGB, [id number], ALB #### [place] [address] [place] #### NICOTINE #### [facility] , Hematocrit (Bld) [Volume fraction] 31.3 % Low 38.8-50.0 [facility] Comment on above: Performed By: #### C UMRSA, A1C WTH eA, HGB, [id number], ALB #### [place] [address] [place] #### NICOTINE #### [facility] , Hemoglobin (Bld) [Mass/Vol] 10.8 g/dL Low 13.0-17.0 [facility] Comment on above: Performed By: #### C UMRSA, A1C WTH eA, HGB, [id number], ALB #### [place] [address] [place] #### NICOTINE #### [facility] , Lymphocytes (Bld) [#/Vol] 0.9 10*3/uL Low 1.00-4.8 [facility] Comment on above: Performed By: #### C UMRSA, A1C WTH eA, HGB, [id number], ALB #### [place] [address] [place] #### NICOTINE #### [facility] , Lymphocytes/100 WBC (Bld) 6.6 % Normal . [facility] Comment on above: Performed By: #### C UMRSA, A1C WTH eA, HGB, [id number], ALB #### [address] [address] [place] #### NICOTINE #### [facility] , MCH (RBC) [Entitic mass] 35.9 pg High 27.5-35.2 [facility] Comment on above: Performed By: #### C UMRSA, A1C WTH eA, HGB, [id number], ALB #### [facility] [address] [place] [address] [place] #### NICOTINE #### [facility] , MCV (RBC) [Entitic vol] 103.6 fL High 83.5-101 [facility] Comment on above: Performed By: #### C UMRSA, A1C WTH eA, HGB, [id number], ALB #### [facility] [address] [place] [address] #### NICOTINE #### [facility] , Mean Corpuscular HGB Conc 34.6 g/dL Normal 32.5-35.6 [facility] Comment on above: Performed By: #### C UMRSA, A1C WTH eA, HGB, [id number], ALB #### [facility] [address] [place] [address] [place] #### NICOTINE #### [facility] , Monocytes (Bld) [#/Vol] 1.2 10*3/uL High 0.0-0.8 [facility] Comment on above: Performed By: #### C UMRSA, A1C WTH eA, HGB, [id number], ALB #### [facility] [address] [place] [address] [place] #### NICOTINE #### [facility] , Monocytes/100 WBC (Bld) 9.3 % Normal . [facility] Comment on above: Performed By: #### C UMRSA, A1C WTH eA, HGB, [id number], ALB #### [facility] [address] [place] [address] [place] #### NICOTINE #### [facility] , Neutrophils (Bld) [#/Vol] 11.1 10*3/uL High 1.8-7.7 [facility] Comment on above: Performed By: #### C UMRSA, A1C WTH eA, HGB, [id number], ALB #### [facility] [address] [place] [address] [place] #### NICOTINE #### [facility] , Neutrophils/100 WBC (Bld) 83.9 % Normal . [facility] Comment on above: Performed By: #### C UMRSA, A1C WTH eA, HGB, [id number], ALB #### [facility] [address] [place] [address] [place] #### NICOTINE #### [facility] , NRBC% 0.1 /100{WBC} Normal 0-0.5 [facility] Comment on above: Performed By: #### C UMRSA, A1C WTH eA, HGB, [id number], ALB #### [facility] [address] [place] [address] [place] #### NICOTINE #### [facility] , Platelet mean volume (Bld) [Entitic vol] 8.5 fL Normal 6.6-10.1 [facility] Comment on above: Performed By: #### C UMRSA, A1C WTH eA, HGB, [id number], ALB #### [facility] [address] [place] [address] [place] #### NICOTINE #### [facility] , Platelets (Bld) [#/Vol] 119 10*3/uL Low 150-450 [facility] Comment on above: Performed By: #### C UMRSA, A1C WTH eA, HGB, [id number], ALB #### [facility] [address] [place] [address] [place] #### NICOTINE #### [facility] , RBC (Bld) [#/Vol] 3.02 10*6/uL Low 3.90-5.60 [facility] Comment on above: Performed By: #### C UMRSA, A1C WTH eA, HGB, [id number], ALB #### [facility] [address] [place] [address] [place] #### NICOTINE #### [facility] , WBC (Bld) [#/Vol] 13.2 10*3/uL High 4.1-10.5 [facility] Comment on above: Performed By: #### C UMRSA, A1C WTH eA, HGB, [id number], ALB #### [facility] [address] [place] [address] [place] #### NICOTINE #### [facility] , Creatinine [Mass/volume] in Serum or PlasmaOrdered By: Andrea Govea on 05-14-2023 Creatinine [Mass/Vol] 1.17 mg/dL 0.70-1.30 [facility] Eosinophils Auto (Bld) [#/Vo l]Ordered By: Andrea Govae on 05-14-2023 Eosinophils (Bld) [#/Vol] 0.0 10*3/uL 0.0-0.45 [facility] Eosinophils/100 WBC Auto (Bl d)Ordered By: Andrea Govea on 05-14-2023 Eosinophils/100 WBC (Bld) 0.1 % . [facility] Erythrocyte distribution wid th Auto (RBC) [Ratio]Ordered By: Andrea Govea on 05-14-2023 Erythrocyte distribution width (RBC) [Ratio] 14.5 % 12.0-14.8 [facility] Glucose [Mass/volume] in Ser um or PlasmaOrdered By: Andrea Govea on 05-14-2023 Glucose [Mass/Vol] 131 mg/dL 70-100 [facility] Comment on above: ADA recommended refe rence rangeRandom Glucose Reference Range is dependent on time and content of last meal. Glucose of more than 200 mg/dL in a nonstressed, ambulatory subject supports the diagnosis of Diabetes Mellitus. Hematocrit Auto (Bld) [Volum e fraction]Ordered By: Andrea Govea on 05-14-2023 Hematocrit (Bld) [Volume fraction] 31.3 % 38.8-50.0 [facility] Hemoglobin [Mass/volume] in BloodOrdered By: Andrea Govea on 05-14-2023 Hemoglobin (Bld) [Mass/Vol] 10.8 g/dL 13.0-17.0 [facility] Leukocytes [#/volume] correc karl for nucleated erythrocytes in Blood by Automated counOrdered By: Andrea Govea on 05-14-2023 WBC corrected for nucl RBC Auto (Bld) [#/Vol] 13.2 10*3/uL 4.1-10.5 [facility] Lymphocytes Auto (Bld) [#/Vo l]Ordered By: Andrea Govea on 05-14-2023 Lymphocytes (Bld) [#/Vol] 0.9 10*3/uL 1.00-4.8 [facility] Lymphocytes/100 WBC Auto (Bl d)Ordered By: Andrea Govea on 05-14-2023 Lymphocytes/100 WBC (Bld) 6.6 % . [facility] MCH Auto (RBC) [Entitic mass ]Ordered By: Andrea Govea on 05-14-2023 MCH (RBC) [Entitic mass] 35.9 pg 27.5-35.2 [facility] MCHC Auto (RBC) [Mass/Vol]Or dered By: Andrea Govea on 05-14-2023 MCHC (RBC) [Mass/Vol] 34.6 g/dL 32.5-35.6 [facility] MCV Auto (RBC) [Entitic vol] Ordered By: Andrea Govea on 05-14-2023 MCV (RBC) [Entitic vol] 103.6 fL 83.5-101 [facility] Monocytes Auto (Bld) [#/Vol] Ordered By: Andrea Govea on 05-14-2023 Monocytes (Bld) [#/Vol] 1.2 10*3/uL 0.0-0.8 [facility] Monocytes/100 WBC Auto (Bld) Ordered By: Andrea Govea on 05-14-2023 Monocytes/100 WBC (Bld) 9.3 % . [facility] Neutrophils Auto (Bld) [#/Vo l]Ordered By: Andrea Govea on 05-14-2023 Neutrophils (Bld) [#/Vol] 11.1 10*3/uL 1.8-7.7 [facility] Neutrophils/100 WBC Auto (Bl d)Ordered By: Andrea Govea on 05-14-2023 Neutrophils/100 WBC (Bld) 83.9 % . [facility] No Panel InformationOrdered By: Andrea Govea on 05-14-2023 Estimated GFR (CKD-EPI) > 60.0 mL/Min [facility] Creatinine Clearance (Chem 71.91 [facility] Nucleated erythrocytes [Pres ence] in Blood by Automated countOrdered By: Andrea Govea on 05-14-2023 Nucleated RBC Auto Ql (Bld) 0.1 /100{WBC} 0-0.5 [facility] Platelet mean volume Auto (B ld) [Entitic vol]Ordered By: Andrea Govea on 05-14-2023 Platelet mean volume (Bld) [Entitic vol] 8.5 fL 6.6-10.1 [facility] Platelets Auto (Bld) [#/Vol] Ordered By: Andrea Govea on 05-14-2023 Platelets (Bld) [#/Vol] 119 10*3/uL 150-450 [facility] Potassium [Moles/volume] in Serum or PlasmaOrdered By: Andrea Govea on 05-14-2023 Potassium [Moles/Vol] 4.9 mmol/L 3.5-5.1 [facility] RBC Auto (Bld) [#/Vol]Ordere d By: Andrea Govea on 05-14-2023 RBC (Bld) [#/Vol] 3.02 10*6/uL 3.90-5.60 [facility] Serum or plasma anion gap de terminationOrdered By: Andrea Govea on 05-14-2023 Anion gap [Moles/Vol] 6.2 mmol/L 6.0-15.0 [facility] Sodium [Moles/volume] in Ser um or PlasmaOrdered By: Andrea Govea on 05-14-2023 Sodium [Moles/Vol] 138 mmol/L 136-145 [facility] Urea nitrogen [Mass/volume] in Serum or PlasmaOrdered By: Andrea Govea on 05-14-2023 Urea nitrogen [Mass/Vol] 29 mg/dL 7-25 [facility] WBC Auto (Bld) [#/Vol]Ordere d By: Andrea Govea on 05-14-2023 WBC (Bld) [#/Vol] 13.2 10*3/uL 4.1-10.5 [facility] Basic Metabolic Panelon 11-0 Anion gap [Moles/Vol] 8.0 mmol/L Normal 6.0-15.0 [facility] Comment on above: Performed By: #### B MP, CBC #### [facility] [address] Calcium [Mass/Vol] 8.7 mg/dL Normal 8.6-10.3 [facility] Comment on above: Performed By: #### B MP, CBC #### [facility] [address] Chloride [Moles/Vol] 101 mmol/L Normal 98-107 [facility] Comment on above: Performed By: #### B MP, CBC #### [facility] [address] CO2 [Moles/Vol] 29.1 mmol/L Normal 21.0-31.0 [facility] Comment on above: Performed By: #### B MP, CBC #### [facility] [address] [place] [address] [place] Creatinine [Mass/Vol] 1.32 mg/dL High 0.70-1.30 [facility] Comment on above: Performed By: #### B MP, CBC #### [facility] [address] [place] [address] [place] Creatinine Clr Calc Pharmacy 63.68 Normal [facility] Comment on above: Result Comment: PERF ORMED BY: [place] [address] PATHOLOGIST STRATEGIC PLANNING ANALYST ISMAEL HERNANDEZ M.D. Performed By: #### B MP, CBC #### [facility] [address] [place] [address] [place] GFR/1.73 sq M.predicted MDRD (S/P/Bld) [Vol rate/Area] 55.209 mL/min/{1.73_m2} Normal [facility] Comment on above: Performed By: #### B MP, CBC #### [facility] [address] Glucose [Mass/Vol] 200 mg/dL High 70-100 [facility] Comment on above: Result Comment: [facility] Glucose Reference Range is dependent on time and content of last meal. Glucose of more than 200 mg/dL in a nonstressed, ambulatory subject supports the diagnosis of Diabetes Mellitus. ADA recommended reference range Performed By: #### B MP, CBC #### [address] Potassium [Moles/Vol] 5.1 mmol/L Normal 3.5-5.1 [facility] Comment on above: Performed By: #### B MP, CBC #### [address] Sodium [Moles/Vol] 133 mmol/L Low 136-145 [facility] Comment on above: Performed By: #### B MP, CBC #### [address] Urea nitrogen [Mass/Vol] 25 mg/dL Normal 7-25 [facility] Comment on above: Performed By: #### B MP, CBC #### [address] Complete Blood Count Auto Di ffon 05-13-2023 Basophils (Bld) [#/Vol] 0.0 10*3/uL Normal 0.0-0.2 [facility] Comment on above: Result Comment: PERF ORMED BY: [place] [address] PATHOLOGIST STRATEGIC PLANNING ANALYST ISMAEL HERNANDEZ M.D. Performed By: #### B MP, CBC #### [place] [id number] [place] Basophils/100 WBC (Bld) 0.0 % Normal . [facility] Comment on above: Performed By: #### B MP, CBC #### [address] Eosinophils (Bld) [#/Vol] 0.0 10*3/uL Normal 0.0-0.45 [facility] Comment on above: Performed By: #### B MP, CBC #### [address] Eosinophils/100 WBC (Bld) 0.0 % Normal . [facility] Comment on above: Performed By: #### B MP, CBC #### [address] Erythrocyte distribution width (RBC) [Ratio] 14.3 % Normal 12.0-14.8 [facility] Comment on above: Performed By: #### B MP, CBC #### [address] Hematocrit (Bld) [Volume fraction] 35.4 % Low 38.8-50.0 [facility] Comment on above: Performed By: #### B MP, CBC #### [address] Hemoglobin (Bld) [Mass/Vol] 12.1 g/dL Low 13.0-17.0 [facility] Comment on above: Performed By: #### B MP, CBC #### [address] Lymphocytes (Bld) [#/Vol] 0.6 10*3/uL Low 1.00-4.8 [facility] Comment on above: Performed By: #### B MP, CBC #### [address] Lymphocytes/100 WBC (Bld) 5.2 % Normal . [facility] Comment on above: Performed By: #### B MP, CBC #### [address] MCH (RBC) [Entitic mass] 35.4 pg High 27.5-35.2 [facility] Comment on above: Performed By: #### B MP, CBC #### [address] MCV (RBC) [Entitic vol] 103.9 fL High 83.5-101 [facility] Comment on above: Performed By: #### B MP, CBC #### [address] Mean Corpuscular HGB Conc 34.1 g/dL Normal 32.5-35.6 [facility] Comment on above: Performed By: #### B MP, CBC #### [address] Monocytes (Bld) [#/Vol] 0.5 10*3/uL Normal 0.0-0.8 [facility] Comment on above: Performed By: #### B MP, CBC #### [address] Monocytes/100 WBC (Bld) 4.3 % Normal . [facility] Comment on above: Performed By: #### B MP, CBC #### [address] Neutrophils (Bld) [#/Vol] 10.3 10*3/uL High 1.8-7.7 [facility] Comment on above: Performed By: #### B MP, CBC #### [address] Neutrophils/100 WBC (Bld) 90.5 % Normal . [facility] Comment on above: Performed By: #### B MP, CBC #### [address] NRBC% 0.0 /100{WBC} Normal 0-0.5 [facility] Comment on above: Performed By: #### B MP, CBC #### [address] Platelet mean volume (Bld) [Entitic vol] 8.8 fL Normal 6.6-10.1 [facility] Comment on above: Performed By: #### B MP, CBC #### [facility] [address] [place] [address] Platelets (Bld) [#/Vol] 115 10*3/uL Low 150-450 [facility] Comment on above: Performed By: #### B MP, CBC #### [facility] [address] [place] [address] RBC (Bld) [#/Vol] 3.40 10*6/uL Low 3.90-5.60 [facility] Comment on above: Performed By: #### B MP, CBC #### [facility] [address] [place] [address] WBC (Bld) [#/Vol] 11.4 10*3/uL High 4.1-10.5 [facility] Comment on above: Performed By: #### B MP, CBC #### [address] 05-12-2023 L ------- Specimen: [id number] Received: 05/12/23 Status: AMBER Lacy Num: [id number] Spec Type: Surgical Subm Dr: Andrea Govea MD Tissues: A Joint/Knee (LT KNEE) Procedures: MIGUEL ANGEL, Gross/Micro L4, Decalcification Age/ Patient Sex Location Account Attending Physician Al Kuo /[facility] [id number] Andrea Govea MD SPEC NUM: [id number] RECD: 05/12/23 STATUS: AMBER [place] NUM: [id number] LEW: 05/12/[address] [facility] [address]: Andrea Govea MD ENTERED: 05/12/23 [facility] DR: SHYAM TYPE: Surgical DEPT: S ORDERED: HE, Gross/Micro L4, Decalcification ORDERED: HE, Gross/Micro L4, Decalcification Pathological Diagnosis Knee bone and soft tissue, arthroplasty: - Severe degenerative osteoarthritis, displaying severe articular erosions and focal eburnation, in addition to marked osteophyte degenerations, and irregularly thickened meniscus cartilages, and with patchy mild chalky whitish roughening of various fragment surfaces with associated dystrophic calcifications, compatible with severe degenerative joint disease of the left knee. Gross only examination Clinical Information Left knee osteoarthritis Gross Description Received in formalin labeled with the patient's name, date of and left knee bone and tissue is a 17.5 x 16.3 x 9.7 cm aggregate of johnson-white bone and yellow-brothers soft tissue. The bone fragments have smooth to granular brothers-white articular surfaces with eburnation identified. The cut surface of the bone is yellow-red, trabecular. A gross photo is taken. Gross examination only. CPT Codes 76995 Specimen: [id number] Received: 05/12/23 Status: AMBER Lacy Num: [id number] Spec Type: Surgical Subm Dr: Andrea Govea MD Tissues: A Joint/Knee (LT KNEE) Procedures: MIGUEL ANGEL, Gross/Micro L4, Decalcification Patient: Al Kuo [id number] (Continued) Specimen: [id number] Received: 05/12/23 (Continued) Signed (signature on file) Zofia Lechuga MD 05/26/23 1534 Specimen: [id number] Received: 05/12/23 Status: AMBER Lacy Num: [id number] Spec Type: Surgical Subm Dr: Andrea Govea MD Tissues: A Joint/Knee (LT KNEE) Procedures: MIGUEL ANGEL, Gross/Micro L4, Decalcification Patient: Al Kuo [id number] (Continued) Specimen: [id number] Received: 05/12/23 (Continued) Lanie Photo Specimen: [id number] Received: 05/12/23 Status: AMBER Lacy Num: [id number] Spec Type: Surgical Subm Dr: Andrea Govea MD Tissues: A Joint/Knee (LT KNEE) Procedures: HE, Gross/Micro L4, Decalcification Patient: Al Kuo [id number] (Continued) Signed (signature on file) Zofia Lechuga MD 05/26/23 1534 Normal [facility] XR knee LT 2Von 05-12-2023 XR knee LT 2V [place] [address] XRay Report Signed Patient: Al Kuo MR#: [id number] : 1945 Acct:[id number] Age/Sex: 77 / M ADM Date: 05/12/23 Loc: Room: 2T5910-0 Type: REG [facility] Attending Dr: Andrea Govea II, MD Copies to: Andrea Govea MD Ordering Provider: Andrea Govea MD Date of Service: 05/12/23 XR/XR knee LT 2V: Total or partial knee, do in PACU 2 views left knee plain film COMPARISON: 04/01/2023 HISTORY: Left total knee replacement ACUTE FINDINGS: None DEGENERATIVE CHANGE: Unremarkable SOFT TISSUE FINDINGS: Anterior postsurgical soft tissue changes. JOINT EFFUSION: None POSTOP CHANGES: Adequate hardware. No complication. BONE MINERALIZATION: Adequate XR/XR knee LT 2V IMPRESSION: Uncomplicated left knee arthroplasty Impression dictated by: Tyrell Walker M.D.05/12/2023 4:32 PM Dictation Location: [place] [address] Transcribed By: [facility] 05/12/23 1632 Dictated By: Tyrell Walker DO 05/12/23 1631 Signed By: 05/12/23 1632 Normal [facility] Basic Metabolic Panelon 10-2 Anion gap [Moles/Vol] 7.0 mmol/L Normal 6.0-15.0 [facility] Comment on above: Performed By: #### C UMRSA, A1C WTH eA, HGB, [id number], ALB #### [address] #### NICOTINE #### [facility] , Calcium [Mass/Vol] 8.8 mg/dL Normal 8.6-10.3 [facility] Comment on above: Result Comment: PERF ORMED BY: [place] [address] PATHOLOGIST STRATEGIC PLANNING ANALYST ISMAEL HERNANDEZ M.D. Performed By: #### C UMRSA, A1C WTH eA, HGB, [id number], ALB #### [facility] [address] [place] [address] [place] #### NICOTINE #### [facility] , Chloride [Moles/Vol] 100 mmol/L Normal 98-107 [facility] Comment on above: Performed By: #### C UMRSA, A1C WTH eA, HGB, [id number], ALB #### [facility] [address] [place] [address] [place] #### NICOTINE #### [facility] , CO2 [Moles/Vol] 33.0 mmol/L High 21.0-31.0 [facility] Comment on above: Performed By: #### C UMRSA, A1C WTH eA, HGB, [id number], ALB #### [facility] [address] [place] [address] [place] #### NICOTINE #### [facility] , Creatinine [Mass/Vol] 1.22 mg/dL Normal 0.70-1.30 [facility] Comment on above: Performed By: #### C UMRSA, A1C WTH eA, HGB, [id number], ALB #### [place] [address] [place] #### NICOTINE #### [facility] , GFR/1.73 sq M.predicted MDRD (S/P/Bld) [Vol rate/Area] mL/min/{1.73_m2} [facility] Comment on above: Performed By: #### C UMRSA, A1C WTH eA, HGB, [id number], ALB #### [place] [address] [place] #### NICOTINE #### [facility] , Glucose [Mass/Vol] 128 mg/dL High 70-100 [facility] Comment on above: Result Comment: [place] Glucose Reference Range is dependent on time and content of last meal. Glucose of more than 200 mg/dL in a nonstressed, ambulatory subject supports the diagnosis of Diabetes Mellitus. ADA recommended reference range Performed By: #### C UMRSA, A1C WTH eA, HGB, [id number], ALB #### [place] [address] [place] #### NICOTINE #### [facility] , Potassium [Moles/Vol] 5.0 mmol/L Normal 3.5-5.1 [facility] Comment on above: Performed By: #### C UMRSA, A1C WTH eA, HGB, [id number], ALB #### [place] [address] [place] #### NICOTINE #### [facility] , Sodium [Moles/Vol] 135 mmol/L Low 136-145 [facility] Comment on above: Performed By: #### C UMRSA, A1C WTH eA, HGB, [id number], ALB #### [facility] [address] [place] [address] [place] #### NICOTINE #### [facility] , Urea nitrogen [Mass/Vol] 16 mg/dL Normal 7-25 [facility] Comment on above: Performed By: #### C UMRSA, A1C WTH eA, HGB, [id number], ALB #### [facility] [address] [place] [address] [place] #### NICOTINE #### [facility] , Basophils Auto (Bld) [#/Vol] Ordered By: Andrea Govea on 04-28-2023 Basophils (Bld) [#/Vol] 0.0 10*3/uL 0.0-0.2 [facility] Basophils/100 WBC Auto (Bld) Ordered By: Andrea Govea on 04-28-2023 Basophils/100 WBC (Bld) 0.4 % . [facility] Bilirubin Test strip Ql (U)O rdered By: Andrea Govea on 04-28-2023 Bilirubin Ql (U) Negative Negative [facility] Calcium [Mass/volume] in Ser um or PlasmaOrdered By: Andrea Govea on 04-28-2023 Calcium [Mass/Vol] 8.8 mg/dL 8.6-10.3 [facility] Carbon dioxide, total [Moles /volume] in Serum or PlasmaOrdered By: Andrea Govea on 04-28-2023 CO2 [Moles/Vol] 33.0 mmol/L 21.0-31.0 [facility] Chloride [Moles/volume] in S gary or PlasmaOrdered By: Andrea Govea on 04-28-2023 Chloride [Moles/Vol] 100 mmol/L 98-107 [facility] Color Auto (U)Ordered By: Silvina Govea on 04-28-2023 Color (U) Yellow Yellow [facility] Complete Blood Count Auto Di ffon 04-28-2023 Basophils (Bld) [#/Vol] 0.0 10*3/uL Normal 0.0-0.2 [facility] Comment on above: Result Comment: PERF ORMED BY: [place] [address] PATHOLOGIST STRATEGIC PLANNING ANALYST ISMAEL HERNANDEZ M.D. Performed By: #### F RUC #### [facility] , #### CBC #### [facility] [address] [place] [address] Basophils/100 WBC (Bld) 0.4 % Normal . [facility] Comment on above: Performed By: #### F RUC #### [facility] , #### CBC #### [place] [address] [place] Eosinophils (Bld) [#/Vol] 0.2 10*3/uL Normal 0.0-0.45 [facility] Comment on above: Performed By: #### F RUC #### [facility] , #### CBC #### [address] Eosinophils/100 WBC (Bld) 3.1 % Normal . [facility] Comment on above: Performed By: #### F RUC #### [facility] , #### CBC #### [facility] [address] [place] [address] Erythrocyte distribution width (RBC) [Ratio] 14.2 % Normal 12.0-14.8 [facility] Comment on above: Performed By: #### F RUC #### [facility] , #### CBC #### [facility] [address] [place] [address] Hematocrit (Bld) [Volume fraction] 38.2 % Low 38.8-50.0 [facility] Comment on above: Performed By: #### F RUC #### [facility] , #### CBC #### [address] Hemoglobin (Bld) [Mass/Vol] 13.2 g/dL Normal 13.0-17.0 [facility] Comment on above: Performed By: #### F RUC #### [facility] , #### CBC #### [address] Lymphocytes (Bld) [#/Vol] 1.0 10*3/uL Normal 1.00-4.8 [facility] Comment on above: Performed By: #### F RUC #### [facility] , #### CBC #### [address] Lymphocytes/100 WBC (Bld) 12.1 % Normal . [facility] Comment on above: Performed By: #### F RUC #### [facility] , #### CBC #### [address] MCH (RBC) [Entitic mass] 35.7 pg High 27.5-35.2 [facility] Comment on above: Performed By: #### F RUC #### [facility] , #### CBC #### [address] MCV (RBC) [Entitic vol] 103.3 fL High 83.5-101 [facility] Comment on above: Performed By: #### F RUC #### [facility] , #### CBC #### [address] Mean Corpuscular HGB Conc 34.6 g/dL Normal 32.5-35.6 [facility] Comment on above: Performed By: #### F RUC #### [facility] , #### CBC #### [facility] [address] [place] [address] [place] Monocytes (Bld) [#/Vol] 0.6 10*3/uL Normal 0.0-0.8 [facility] Comment on above: Performed By: #### F RUC #### [facility] , #### CBC #### [facility] [address] [place] [address] [place] Monocytes/100 WBC (Bld) 7.9 % Normal . [facility] Comment on above: Performed By: #### F RUC #### [facility] , #### CBC #### [place] [address] [place] Neutrophils (Bld) [#/Vol] 6.1 10*3/uL Normal 1.8-7.7 [facility] Comment on above: Performed By: #### F RUC #### [facility] , #### CBC #### [place] [address] [place] Neutrophils/100 WBC (Bld) 76.5 % Normal . [facility] Comment on above: Performed By: #### F RUC #### [facility] , #### CBC #### [facility] [address] [place] [address] [place] NRBC% 0.1 /100{WBC} Normal 0-0.5 [facility] Comment on above: Performed By: #### F RUC #### [facility] , #### CBC #### [facility] [address] [place] [address] [place] Platelet mean volume (Bld) [Entitic vol] 8.6 fL Normal 6.6-10.1 [facility] Comment on above: Performed By: #### F RUC #### [facility] , #### CBC #### [facility] [address] [place] [address] [place] Platelets (Bld) [#/Vol] 110 10*3/uL Low 150-450 [facility] Comment on above: Performed By: #### F RUC #### [facility] , #### CBC #### [facility] [address] RBC (Bld) [#/Vol] 3.69 10*6/uL Low 3.90-5.60 [facility] Comment on above: Performed By: #### F RUC #### [facility] , #### CBC #### [facility] [address] WBC (Bld) [#/Vol] 8.0 10*3/uL Normal 4.1-10.5 [facility] Comment on above: Performed By: #### F RUC #### [facility] , #### CBC #### [facility] [address] Creatinine [Mass/volume] in Serum or PlasmaOrdered By: Andrea Govea on 04-28-2023 Creatinine [Mass/Vol] 1.22 mg/dL 0.70-1.30 [facility] ECG 12 lead ECGon 04-28-2023 ECG 12 lead ECG [facility] [place] [address] [place] [address] Electrocardiograph Report Signed Patient: Al Kuo MR#: [id number] : 1945 Acct:[id number] Age/Sex: 77 / M ADM Date: 04/28/23 Loc: PS Room: Type: [facility] Attending Dr: Andrea Govea II, MD Ordering Provider: Andrea Govea MD Date of Service: 04/28/23 ECG/ECG 12 lead ECG: ltka Copies to: Test Reason : Blood Pressure : / mmHG Vent. Rate : 071 BPM Atrial Rate : 441 BPM P-R Int : 000 ms QRS Dur : 140 ms QT Int : 422 ms P-R-T Axes : 000 026 002 degrees QTc Int : 458 ms Atrial fibrillation Right bundle branch block Abnormal ECG When compared with ECG of 31-MAR-2022 13:27, No significant change was found Confirmed by ANDREA RAMIREZ DO ([id number]) on 04/28/2023 7:09:03 PM Referred By: JEFERSON Electronically Signed By:ANDREA RAMIREZ DO Transcribed By: MUS Signed By Andrea Ramirez DO 04/28 1909 Normal [facility] Eosinophils Auto (Bld) [#/Vo l]Ordered By: Andrea Govea on 04-28-2023 Eosinophils (Bld) [#/Vol] 0.2 10*3/uL 0.0-0.45 [facility] Eosinophils/100 WBC Auto (Bl d)Ordered By: Andrea Govea on 04-28-2023 Eosinophils/100 WBC (Bld) 3.1 % . [facility] Erythrocyte distribution wid th Auto (RBC) [Ratio]Ordered By: Andrea Govea on 04-28-2023 Erythrocyte distribution width (RBC) [Ratio] 14.2 % 12.0-14.8 [facility] Fructosamineon 04-28-2023 Fructosamine 223 umol/L Normal 0-285 [facility] Comment on above: Result Comment: Publ ished reference interval for apparently healthy subjects between age 20 and 60 is 205 - 285 umol/L and in a poorly controlled diabetic population is 228 - 563 umol/L with a mean of 396 umol/L. Performed at: [facility] [address] [id number] [place] Caller: Mango Cantu PhD, Phone: [phone] PERFORMED BY: [place] [address] PATHOLOGIST STRATEGIC PLANNING ANALYST ISMAEL HERNANDEZ M.D. Performed By: #### C UMRSA, A1C WTH eA, HGB, [id number], ALB #### [address] #### NICOTINE #### [facility] , Fructosamine [Moles/volume] in Serum or PlasmaOrdered By: Andrea Govea on 04-28-2023 Fructosamine [Moles/Vol] 223 umol/L 0-285 [facility] Comment on above: Published reference interval for apparently healthysubjects between age 20 and 60 is 205 - 285 umol/L and in apoorly controlled diabetic population is 228 - 563 umol/Lwith a mean of 396 umol/L.Performed at: - [place] [id number] Director: Mango Cantu PhD, Phone: [phone] Glucose [Mass/volume] in Ser um or PlasmaOrdered By: Andrea Govea on 04-28-2023 Glucose [Mass/Vol] 128 mg/dL 70-100 [facility] Comment on above: ADA recommended refe rence rangeRandom Glucose Reference Range is dependent on time and content of last meal. Glucose of more than 200 mg/dL in a nonstressed, ambulatory subject supports the diagnosis of Diabetes Mellitus. Hematocrit Auto (Bld) [Volum e fraction]Ordered By: Andrea Govea on 04-28-2023 Hematocrit (Bld) [Volume fraction] 38.2 % 38.8-50.0 [facility] Hemoglobin [Mass/volume] in BloodOrdered By: Andrea Govea on 04-28-2023 Hemoglobin (Bld) [Mass/Vol] 13.2 g/dL 13.0-17.0 [facility] Ketones Auto test strip (U) [Mass/Vol]Ordered By: Andrea Govea on 04-28-2023 Ketones (U) [Mass/Vol] Trace Negative [facility] Leukocytes [#/volume] correc karl for nucleated erythrocytes in Blood by Automated counOrdered By: Andrea Govea on 04-28-2023 WBC corrected for nucl RBC Auto (Bld) [#/Vol] 8.0 10*3/uL 4.1-10.5 [facility] Lymphocytes Auto (Bld) [#/Vo l]Ordered By: Andrea Govea on 04-28-2023 Lymphocytes (Bld) [#/Vol] 1.0 10*3/uL 1.00-4.8 [facility] Lymphocytes/100 WBC Auto (Bl d)Ordered By: Andrea Govea on 04-28-2023 Lymphocytes/100 WBC (Bld) 12.1 % . [facility] MCH Auto (RBC) [Entitic mass ]Ordered By: Andrea Govea on 04-28-2023 MCH (RBC) [Entitic mass] 35.7 pg 27.5-35.2 [facility] MCHC Auto (RBC) [Mass/Vol]Or dered By: Andrea Govea on 04-28-2023 MCHC (RBC) [Mass/Vol] 34.6 g/dL 32.5-35.6 [facility] MCV Auto (RBC) [Entitic vol] Ordered By: Andrea Govea on 04-28-2023 MCV (RBC) [Entitic vol] 103.3 fL 83.5-101 [facility] Monocytes Auto (Bld) [#/Vol] Ordered By: Andrea Govea on 04-28-2023 Monocytes (Bld) [#/Vol] 0.6 10*3/uL 0.0-0.8 [facility] Monocytes/100 WBC Auto (Bld) Ordered By: Andrea Govea on 04-28-2023 Monocytes/100 WBC (Bld) 7.9 % . [facility] Neutrophils Auto (Bld) [#/Vo l]Ordered By: Andrea Govea on 04-28-2023 Neutrophils (Bld) [#/Vol] 6.1 10*3/uL 1.8-7.7 [facility] Neutrophils/100 WBC Auto (Bl d)Ordered By: Andrea Govea on 04-28-2023 Neutrophils/100 WBC (Bld) 76.5 % . [facility] Nitrite Test strip Ql (U)Ord ered By: Andrea Govea on 04-28-2023 Nitrite Ql (U) Negative Negative [facility] No Panel InformationOrdered By: Andrea Govea on 04-28-2023 Estimated GFR (CKD-EPI) > 60.0 mL/Min [facility] Creatinine Clearance (Chem N/A [facility] Nucleated erythrocytes [Pres ence] in Blood by Automated countOrdered By: Andrea Govea on 04-28-2023 Nucleated RBC Auto Ql (Bld) 0.1 /100{WBC} 0-0.5 [facility] PST Type and Screenon 2022 ABO and Rh group Nom (Bld) Blood group A Rh(D) negative Normal [facility] Comment on above: Order Comment: Reaso n for Exam Age-related osteoporosis without current pathological fractu FASTING. JKW Result Comment: PERF ORMED BY: [facility] [place] [address] PATHOLOGIST STRATEGIC PLANNING ANALYST ISMAEL HERNANDEZ M.D. Platelet mean volume Auto (B ld) [Entitic vol]Ordered By: Andrea Govea on 04-28-2023 Platelet mean volume (Bld) [Entitic vol] 8.6 fL 6.6-10.1 [facility] Platelets Auto (Bld) [#/Vol] Ordered By: Andrea Govea on 04-28-2023 Platelets (Bld) [#/Vol] 110 10*3/uL 150-450 [facility] Potassium [Moles/volume] in Serum or PlasmaOrdered By: Andrea Govea on 04-28-2023 Potassium [Moles/Vol] 5.0 mmol/L 3.5-5.1 [facility] Protein Auto test strip (U) [Mass/Vol]Ordered By: Andrea Govea on 04-28-2023 Protein (U) [Mass/Vol] Negative Negative [facility] RBC Auto (Bld) [#/Vol]Ordere d By: Andrea Govea on 04-28-2023 RBC (Bld) [#/Vol] 3.69 10*6/uL 3.90-5.60 [facility] Serum or plasma anion gap de terminationOrdered By: Andrea Govea on 04-28-2023 Anion gap [Moles/Vol] 7.0 mmol/L 6.0-15.0 [facility] Sodium [Moles/volume] in Ser um or PlasmaOrdered By: Andrea Govea on 04-28-2023 Sodium [Moles/Vol] 135 mmol/L 136-145 [facility] Specific gravity Auto test s trip (U) [Rel density]Ordered By: Andrea Govea on 04-28-2023 Specific gravity (U) [Rel density] 1.015 1.001-1.03 0 [facility] Urea nitrogen [Mass/volume] in Serum or PlasmaOrdered By: Andrea Govea on 04-28-2023 Urea nitrogen [Mass/Vol] 16 mg/dL 01-27 [facility] Urinalysison 04-28-2023 Appearance (U) Clear Normal Clear [facility] Comment on above: Order Comment: Name Collection Type:: Clean-Voided Midstream Performed By: #### U A #### [facility] [address] [place] [address] [place] Bilirubin,Urine Negative Normal Negative [facility] Comment on above: Order Comment: Name Collection Type:: Clean-Voided Midstream Performed By: #### U A #### [facility] [address] [place] [address] Color (U) Yellow Normal Yellow [facility] Comment on above: Order Comment: Name Collection Type:: Clean-Voided Midstream Performed By: #### U A #### [facility] [address] [place] [address] [place] Glucose Ql (U) Normal Normal Normal [facility] Comment on above: Order Comment: Name Collection Type:: Clean-Voided Midstream Performed By: #### U A #### [facility] [address] [place] [address] [place] Ketones Ql (U) Trace High Negative [facility] Comment on above: Order Comment: Name Collection Type:: Clean-Voided Midstream Performed By: #### U A #### [facility] [address] [place] [address] [place] Leukocyte esterase Test strip Ql (U) Negative Normal Negative [facility] Comment on above: Order Comment: Name Collection Type:: Clean-Voided Midstream Performed By: #### U A #### [facility] [address] [place] [address] [place] Nitrite,Urine Negative Normal Negative [facility] Comment on above: Order Comment: Name Collection Type:: Clean-Voided Midstream Performed By: #### U A #### [facility] [address] [place] [address] [place] Occult Blood,Urine Negative Normal Negative [facility] Comment on above: Order Comment: Name Collection Type:: Clean-Voided Midstream Result Comment: PERF ORMED BY: [place] [address] PATHOLOGIST STRATEGIC PLANNING ANALYST ISMAEL HERNANDEZ M.D. Performed By: #### U A #### [facility] [address] [place] [address] pH (U) 5.5 [pH] Normal 5.0-9.0 [facility] Comment on above: Order Comment: Name Collection Type:: Clean-Voided Midstream Performed By: #### U A #### [address] Protein,Urine Negative Normal Negative [facility] Comment on above: Order Comment: Name Collection Type:: Clean-Voided Midstream Performed By: #### U A #### [address] Specificy [place],Urine 1.015 Normal 1.001-1.03 0 [facility] Comment on above: Order Comment: Name Collection Type:: Clean-Voided Midstream Performed By: #### U A #### [address] Urobilinogen,Urine Normal Normal Normal [facility] Comment on above: Order Comment: Name Collection Type:: Clean-Voided Midstream Performed By: #### U A #### [address] Urine clarity by refractomet ry automatedOrdered By: Andrea Govea on 04-28-2023 Clarity Refractometry automated (U) Clear Clear [facility] Urine glucose measurement by automated test strip (mass/volume)Ordered By: Andrea Govea on 04-28-2023 Glucose Auto test strip (U) [Mass/Vol] Normal mg/dL Normal [facility] Urine hemoglobin detection b y automated test stripOrdered By: Andrea Govea on 04-28-2023 Hemoglobin Auto test strip Ql (U) Negative Negative [facility] Urine leukocyte esterase det ection by automated test stripOrdered By: Andrea Govea on 04-28-2023 Leukocyte esterase Auto test strip Ql (U) Negative Negative [facility] Urobilinogen Auto test strip (U) [Mass/Vol]Ordered By: Andrea Govea on 04-28-2023 Urobilinogen (U) [Mass/Vol] Normal mg/dL Normal [facility] WBC Auto (Bld) [#/Vol]Ordere d By: Andrea Govea on 04-28-2023 WBC (Bld) [#/Vol] 8.0 10*3/uL 4.1-10.5 [facility] pH Auto test strip (U)Ordere d By: Andrea Govea on 04-28-2023 pH (U) 5.5 [pH] 5.0-9.0 [facility] A1C with Estimated Average G luon 04-01-2023 Glucose [Mass/Vol] 114 mg/dL Normal [facility] Comment on above: Order Comment: Reaso n for Exam Age-related osteoporosis without current pathological fractu Result Comment: PERF ORMED BY: [place] [address] PATHOLOGIST STRATEGIC PLANNING ANALYST ISMAEL HERNANDEZ M.D. Performed By: #### C UMRSA, A1C WTH eA, HGB, [id number], ALB #### [facility] [address] [place] [address] [place] #### NICOTINE #### [facility] , HbA1c (Bld) [Mass fraction] 5.6 % Normal 4.3-5.6 [facility] Comment on above: Order Comment: Reaso n for Exam Age-related osteoporosis without current pathological fractu Result Comment: Incr eased risk for diabetes: 5.7 - 6.4 diabetes: >6.4 glycemic control for adults with diabetes: <7.0 Performed By: #### C UMRSA, A1C WTH eA, HGB, [id number], ALB #### [facility] [address] [place] [address] [place] #### NICOTINE #### [facility] , Albumin Levelon 04-01-2023 Albumin [Mass/Vol] 4.0 g/dL Normal 3.5-5.7 [facility] Comment on above: Order Comment: Reaso n for Exam Age-related osteoporosis without current pathological fractu FASTING. JKW Performed By: #### C UMRSA, A1C WTH eA, HGB, [id number], ALB #### [facility] [address] #### NICOTINE #### [facility] , Albumin [Mass/volume] in Ser um or Plasma by Bromocresol green (BCG) dye binding methoOrdered By: Andrea Govea on 04-01-2023 Albumin BCG dye [Mass/Vol] 4.0 g/dL 3.5-5.7 [facility] Cotinine [Mass/volume] in Se rum or PlasmaOrdered By: Andrea Govea on 04-01-2023 Cotinine [Mass/Vol] <1.0 ng/mL . [facility] Comment on above: This test was develo ped and its performance characteristicsdetermined by [facility]. It has not been cleared orapproved by the Food and Drug Administration.Cotinine levels greater than 20.0 are consistent with theuse of tobacco or tobacco cessation products.Performed at: [facility] [address] [id number] Director: Daniel Ann MD, Phone: [phone] Glucose mean value [Mass/vol ume] in Blood Estimated from glycated hemoglobinOrdered By: Andrea Govea on 04-01-2023 Average glucose Estimated from glycated hemoglobin (Bld) [Mass/Vol] 114 mg/dL [facility] Hemoglobinon 04-01-2023 Hemoglobin (Bld) [Mass/Vol] 14.3 g/dL Normal 13.0-17.0 [facility] Comment on above: Order Comment: Reaso n for Exam Age-related osteoporosis without current pathological fractu Result Comment: PERF ORMED BY: [facility] [address] [place] [id number] PATHOLOGIST STRATEGIC PLANNING ANALYST ISMAEL HERNANDEZ M.D. Performed By: #### C UMRSA, A1C WTH eA, HGB, [id number], ALB #### [facility] [address] [place] [address] [place] #### NICOTINE #### [facility] , Hemoglobin A1c percentageOrd ered By: Andrea Govea on 04-01-2023 HbA1c (Bld) [Mass fraction] 5.6 % 4.3-5.6 [facility] Comment on above: Increased risk for d iabetes: 5.7 - 6.4diabetes: >6.4glycemic control for adults with diabetes: <7.0 Hemoglobin [Mass/volume] in BloodOrdered By: Andrea Govea on 04-01-2023 Hemoglobin (Bld) [Mass/Vol] 14.3 g/dL 13.0-17.0 [facility] MRSA Cultureon 04-01-2023 MRSA Culture Reason for Exam Age- related osteoporosis without current pathological fractu Nasal Reason for Exam: Age-related osteoporosis without current pathological fractu : Nasal MRSA Culture Results No MRSA Isolated 2 Days PERFORMED BY: [place] [address] PATHOLOGIST STRATEGIC PLANNING ANALYST ISMAEL HERNANDEZ M.D. Normal [facility] Comment on above: Performed By: #### C UMRSA, A1C WTH eA, HGB, [id number], ALB #### [address] #### NICOTINE #### [facility] , Nicotine [Mass/volume] in Se rum or PlasmaOrdered By: Andrea Govea on 04-01-2023 Nicotine [Mass/Vol] <1.0 ng/mL . [facility] Comment on above: This test was develo ped and its performance characteristicsdetermined by [facility]. It has not been cleared orapproved by the Food and Drug Administration.Nicotine levels greater than 2.0 are consistent with theuse of tobacco or tobacco cessation products. Nicotine/Cotinine Bloodon Cotinine, Blood <1.0 Normal . [facility] Comment on above: Order Comment: Reaso n for Exam Age-related osteoporosis without current pathological fractu Result Comment: This test was developed and its performance characteristics determined by [facility]. It has not been cleared or approved by the Food and Drug Administration. Cotinine levels greater than 20.0 are consistent with the use of tobacco or tobacco cessation products. Performed at: [facility] [address] [id number] [place] Caller: Daniel Ann MD, Phone: [phone] PERFORMED BY: [place] [address] PATHOLOGIST STRATEGIC PLANNING ANALYST ISMAEL HERNANDEZ M.D. Performed By: #### C UMRSA, A1C WTH eA, HGB, [id number], ALB #### [address] #### NICOTINE #### [facility] , Nicotine, Blood <1.0 Normal . [facility] Comment on above: Order Comment: Reaso n for Exam Age-related osteoporosis without current pathological fractu Result Comment: This test was developed and its performance characteristics determined by [facility]. It has not been cleared or approved by the Food and Drug Administration. Nicotine levels greater than 2.0 are consistent with the use of tobacco or tobacco cessation products. Performed By: #### C UMRSA, A1C WTH eA, HGB, [id number], ALB #### [place] [address] [place] #### NICOTINE #### [facility] , Vitamin D 25 Hydroxy Totalon 04-01-2023 Vitamin D 25 Hydroxy Total 87.1 ng/mL Normal 30-100 [facility] Comment on above: Order Comment: Reaso n for Exam Age-related osteoporosis without current pathological fractu FASTING. JKW Result Comment: KAY MIN D STATUS 25(OH)VITAMIN D RANGE (ng/mL) Deficient <20 Insufficient 20 to <30 Sufficient 30 to 100 Reference: Candelaria MF,Vicenta NC, Marcelo MASCORRO, et al. Evaluation,treatment, and prevention of vitamin D deficiency; an Endocrine Society clinical practice guideline. JCEM. 2010; 96(7):1911-30. PERFORMED BY: [place] [address] PATHOLOGIST STRATEGIC PLANNING ANALYST ISMAEL HERNANDEZ M.D. Performed By: #### C UMRSA, A1C WTH eA, HGB, [id number], ALB #### [place] [address] [place] #### NICOTINE #### [facility] , Vitamin D+Metabolites [Mass/ volume] in Serum or PlasmaOrdered By: Andrea Govea on 04-01-2023 Vitamin D+Metabolites [Mass/Vol] 87.1 ng/mL 30-100 [facility] Comment on above: VITAMIN D STATUS 25( OH)VITAMIN D RANGE (ng/mL) Deficient <20 Insufficient 20 to <30Sufficient 30 to 100Reference: Candelaria MF,Vicenta FORDE, Marcelo MASCORRO, et al. Evaluation,treatment, and prevention of vitamin D deficiency; an Endocrine Society clinical practice guideline. JCEM. 2010; 96(7):1911-30. Wound methicillin resistant Staphylococcus aureus (MRSA) cultureOrdered By: Andrea Govea on 04-01-2023 MRSA isol Org specific cx Ql (Unsp spec) [facility] MRSA isol Org specific cx Ql (Unsp spec) [facility] XR knee LT 4V*on 04-01-2023 XR knee LT 4V* [facility] [place] [address] XRay Report Signed Patient: Al Kuo MR#: [id number] : 1945 Acct:[id number] Age/Sex: 77 / M ADM Date: 04/01/23 Loc: [facility] Room: Type: [facility] Attending Dr: Andrea Govea II, MD Copies to: Andrea Govea MD Ordering Provider: Andrea Govea MD Date of Service: 04/01/23 XR/XR knee LT 4V*: Acute pain of left knee XR knee LT 4V* 04/01/2023 7:06 AM SIGNS AND SYMPTOMS: Generalized left knee pain PROTOCOL: Frontal, lateral, oblique, and sunrise views of the left knee COMPARISON: None FINDINGS: There is severe narrowing of the medial weightbearing joint space with spurring of the medial femoral condyle and medial tibial plateau. There is mild/moderate narrowing of the patellofemoral joint space. There is a small joint effusion. There is no fracture or dislocation. XR/XR knee LT 4V* IMPRESSION: Degenerative changes are noted in the left knee, greatest in the medial weightbearing joint space. There is a small joint effusion. Impression dictated by: Drew Duran M.D.04/01/2023 12:40 PM Dictation Location: [place] [address] Transcribed By: [facility] 04/01/23 1240 Dictated By: Drew Duran II, MD 04/01/23 1239 Signed By: 04/01/23 1240 [facility] XR knee RT 3V - NOT FOR ER U Yamileth 04-01-2023 XR knee RT 3V - NOT FOR ER USE [facility] [place] [address] [place] [address] XRay Report Signed Patient: Al Kuo MR#: [id number] : 1945 Acct:[id number] Age/Sex: 77 / M ADM Date: 04/01/23 Loc: [facility] Room: Type: [facility] Attending Dr: Andrea Govea II, MD Copies to: Andrea Govea MD Ordering Provider: Andrea Govea MD Date of Service: 04/01/23 XR/XR knee RT 3V - NOT FOR ER USE: Presence of right artificial knee joint XR knee RT 3V - NOT FOR ER USE 04/01/2023 7:06 AM SIGNS AND SYMPTOMS: Follow-up total right knee RT plasty hardware PROTOCOL: Frontal and lateral radiograph of the right knee COMPARISON: 04/14/2022 FINDINGS: There is total right knee arthroplasty hardware. There is no evidence of fracture or hardware complication. No soft tissue swelling or joint effusion. Vascular calcifications present posteriorly. XR/XR knee RT 3V - NOT FOR ER USE IMPRESSION: Unchanged total right knee arthroplasty hardware. No fracture. Impression dictated by: Drew Duran M.D.04/01/2023 12:39 PM Dictation Location: [facility] Transcribed By: GIULIA 04/01/23 1239 Dictated By: Drew Duran II, MD 04/01/23 1237 Signed By: 04/01/23 1239 [facility] XR pelvis 1-2Von 04-01-2023 XR pelvis 1-2V [facility] [place] [address] [place] [address] XRay Report Signed Patient: Al Kuo MR#: [id number] : 1945 Acct:[id number] Age/Sex: 77 / M ADM Date: 04/01/23 Loc: [facility] Room: Type: [facility] Attending Dr: Andrea Govea II, MD Copies to: Andrea Govea MD Ordering Provider: Andrea Govea MD Date of Service: 04/01/23 XR/XR pelvis 1-2V: Acute pain of left knee XR pelvis 1-2V 04/01/2023 7:06 AM SIGNS AND SYMPTOMS: Left knee pain PROTOCOL: Frontal radiograph of the pelvis COMPARISON: None FINDINGS: The bony ring of the pelvis is intact. There is enthesophyte formation along the iliac wings. There is no fracture or dislocation. There is mild narrowing of the joint spaces hips. Degenerative changes are partly visualized in the lumbar spine. Vascular calcifications are present in the thighs. XR/XR pelvis 1-2V IMPRESSION: No acute bony injury. Degenerative changes are noted in the lumbar spine, hips, and sacroiliac joints. Impression dictated by: Drew Duran M.D.04/01/2023 12:35 PM Dictation Location: [facility]12 Transcribed By: GIULIA 04/01/23 1235 Dictated By: Drew Duran II, MD 04/01/23 123 Signed By: 04/01/23 1235 [facility] Falls Screening (Age 18+)on 02-03-2023 Fall risk assessment a) No falls within the last year [facility] DO Work Phone: Office Visit (Cardiology)on 02-03-2023 Follow-up visit Diagnoses/Problems Assessed Persistent atrial fibrillation (427.31) (I48.19) Anticoagulated (V58.61) (Z79.01) Dyspnea (786.09) (R06.00) Essential hypertension (401.9) (I10) Former smoker (V15.82) (Z87.891) quit 2000, 1/2 PPD LVH (left ventricular hypertrophy) (429.3) (I51.7) Morbid obesity with BMI of 40.0-44.9, adult (278.01,V85.41) (E66.01,Z68.41) Pulmonary hypertension (416.8) (I27.20) Sinus bradycardia (427.89) (R00.1) Sleep apnea (780.57) (G47.30) Orders Anticoagulated, Persistent atrial fibrillation Basic Metabolic Panel; Status:Active - Retrospective Authorization; Requested for:[id number]; Complete Blood Count; Status:Active - Retrospective Authorization; Requested for:[id number]; SocHx: Former smoker Tobacco Use Screening; Status:Complete; Done: [id number] Patient Instructions Please bring all medicines, vitamins, and herbal supplements with you when you come to the office. Prescriptions will not be filled unless you are compliant with your follow up appointments or have a follow up appointment scheduled as per instruction of your physician. Refills should be requested at the time of your visit. Follow up in 6 months with ekg History of Present Illness Patient is here for follow-up continue management for persistent becoming permanent atrial fibrillation, hypertension, obesity, pulmonary hypertension and sleep apnea. Since last time I saw him he reports he is feeling well. He denies complaint chest pain, lightheadedness, dizziness or syncope. He remains reasonably active. His recent stress test showed no evidence of myocardial ischemia. In atrial fibrillation. ASSESSMENT: 1. Persistent becoming chronic atrial fibrillation. Completely asymptomatic heart rate appears to be controlled on long-term anticoagulation. During last office visit he elected for heart rate control strategy 2. Abnormal echocardiogram demonstrating moderate range left ventricular hypertrophy ue to long-standing hypertension and the patient's body size. 3. Hypertension, controlled 4. Morbid obesity. With minor weight gain 5. Moderate secondary pulmonary hypertension untreated sleep apnea hypertension 6 .sleep apnea. Patient admits he is not compliant with CPAP 7. Pulmonary hypertension due to sleep apnea 8. 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 9. Shortness of breath recent ischemic evaluation was negative RECOMMENDATION: 1. The patient elected for heart rate control and long-term anticoagulation. Risk, benefit alternative anticoagulation reviewed patient should and agreed 2. I advised him to lose weight and exercise. 3. Continue to encourage him to be compliant with his CPAP consider surgical orders Spire device treatment 3. I reviewed the result of his stress test with him 4. Continue to restrict salt intake 5. Patient report he had lower extremity Doppler done in the past at [place] and it was negative for DVT and the patient is on chronic anticoagulation 6. Follow-up in 7 to 8 months with an EKG 6. Patient brought copy of his lab work which demonstrated a little bit elevated C-reactive protein which I indicated to him that it can indicate increased risk of heart disease and discussed with him at length primary prevention-7. Follow-up in 6 months Surgical History Problems History of Cardioversion History of Colectomy partial History of Colonoscopy [id number] History of Hernia repair History of Knee replacement Current Meds Medication NameInstruction Allopurinol 300 MG Oral TabletTAKE 1 TABLET DAILY. Carvedilol 25 MG Oral TabletTAKE 1 TABLET TWICE DAILY. Eliquis 5 MG Oral TabletTake 1 tablet twice daily Ferrous Sulfate 325 (65 Fe) MG Oral TabletTAKE 1 TABLET BY MOUTH EVERY DAY FOR 30 DAYS Folic Acid 1 MG Oral TabletTAKE 1 TABLET DAILY. Spironolactone 25 MG Oral TabletTAKE 1 TABLET BY MOUTH EVERY DAY Vitamin B-12 1000 MCG Oral TabletTAKE 1 TABLET DAILY DIRECTED. Vitamin C 500 MG Oral Capsule1 daily Vitamin D3 25 MCG (1000 UT) Oral TabletTAKE 5 TABLETS BY MOUTH ONCE DAILY Allergies Medication No Known Drug Allergies Recorded By: Angie Gamino; 05/09/2021 1:58:59 PM Social History Problems Consumes alcohol occasionally (V49.89) (Z78.9) Daily caffeine consumption, 1 serving a day 1 cup of coffee, soda occasionally Former smoker (V15.82) (Z87.891) quit 2000, 07/07 PPD No illicit drug use Review of Systems Constitutional: not feeling tired. Cardiovascular: no intermittent leg claudication and as noted in HPI. Respiratory: no cough and no shortness of breath. Gastrointestinal: no change in bowel habits and no blood in stools. Integumentary: no skin rashes. Neurological: no seizures and no frequent falls. All other systems have been reviewed and are negative for complaint. Vitals Vital Signs Recorded: 03Feb2023 03:51PM Heart Rate78 [id number], RUE, Sitting [id number], RUE, Sitting Height5 ft 10 in (more content not included)... Normal [facility] CARDIAC STRESS/REST INJE CTIONon 09-08-2022 [facility] CARDIAC STRESS/REST INJECTION Patient Name: AL KUO STUDY: MYOCARDIAL PERFUSION STRESS TEST WITH LEXISCAN Performing facility: [facility], [address] [place] [address], [address], [place], [place] [address] Provider: Jammie Velasquez MD PCP: Dr. Long Dodd Supervising provider: Ericka Collins RN, TANDEM OPERATOR INDICATION: Dyspnea HISTORY: Gender: M; Age: 77 y/o ; Height: 0 cm; Weight: 0 kg. HTN; Arrhythmias; Edema Quit smoking 22 years ago. COMPARISON: No comparison. ACCESSION NUMBER(S): [id number]; [id number]; [id number] ORDERING CLINICIAN: JAMMIE VELASQUEZ TECHNIQUE: TWO DAY protocol. Stress injection: Date:09-08-22, 35.5 mCi of Myoview IV 20 seconds after rapid injection of Lexiscan. Rest injection: Date: 09-09-22, 35.0 mCi of Myoview IV at rest. The patient had a rapid injection of 0.4 mg of Lexiscan IV over 10 seconds. Imaging was performed by gated tomographic technique. Reason for Lexiscan: hip/knee pain STRESS TEST DATA: Resting heart rate was 79 BPM. Resting blood pressure was 152/88 mmHg. Peak blood pressure was 146/84 mmHg. Peak heart rate was 93 BPM. TEST TERMINATED DUE TO: Protocol completed FINDINGS: STRESS TEST RESULTS: Resting electrocardiogram revealed atrial fibrillation with right bundle branch block. There were no significant ischemic ECG changes or dysrhythmias. The patient did not have chest pains/symptoms during procedure. There was a normal recovery phase. IMAGING RESULTS: Image quality was good. Rest and stress tomographic images were reviewed and revealed normal perfusion without evidence of ischemia, myocardial infarction, or left ventricular dilatation with stress. Overall left ventricular systolic function appeared to be normal without regional wall motion abnormalities. Ejection fraction was 55%. TID is 1.06 and is normal. There was no evidence of attenuation artifact. IMPRESSION: Normal Lexiscan Myoview cardiac perfusion stress test. No evidence of ischemia or myocardial infarction by perfusion imaging. Normal left ventricular systolic function, ejection fraction 55%. No previous studies are available for comparison. Electronically signed by: CHENG LUND MD Normal [facility] No Panel Informationon 09-08 Normal -[facility] Work Phone: Office Visit (Cardiology)on 08-05-2022 Follow-up visit Diagnoses/Problems Assessed Persistent atrial fibrillation (427.31) (I48.19) Essential hypertension (401.9) (I10) Pulmonary hypertension (416.8) (I27.20) Sinus bradycardia (427.89) (R00.1) Anticoagulated (V58.61) (Z79.01) Edema (782.3) (R60.9) Former smoker (V15.82) (Z87.891) quit 2000, 1/2 PPD Morbid obesity with BMI of 40.0-44.9, adult (278.01,V85.41) (E66.01,Z68.41) Dyspnea (786.09) (R06.00) Sleep apnea (780.57) (G47.30) LVH (left ventricular hypertrophy) (429.3) (I51.7) Orders Dyspnea NM Cardiac Stress/Rest Nuclear Med Order; Status:Hold For - Scheduling,Retrospective Authorization; Requested for:05Aug2022; Radiologist to Determine Optimal Study : Y What are the patient's signs and symptoms? : dyspnea Morbid obesity with BMI of 40.0-44.9, adult Healthy Weight Tips; Status:Complete - Retrospective Authorization; Done: 05Aug2022 Some eating tips that can help you lose weight.; Status:Complete - Retrospective Authorization; Done: 05Aug2022 Persistent atrial fibrillation IO EKG Electrocardiogram- 12 Lead; Status:Complete; Done: 05Aug2022 SocHx: Former smoker Tobacco Use Screening; Status:Complete; Done: 05Aug2022 Patient Instructions Please bring all medicines, vitamins, and herbal supplements with you when you come to the office. Prescriptions will not be filled unless you are compliant with your follow up appointments or have a follow up appointment scheduled as per instruction of your physician. Refills should be requested at the time of your visit. Lexiscan Stress for dyspnea Follow up in 6 months The provider reviewed the following test(s) and result(s) with the patient: ECG and laboratory tests History of Present Illness Patient is here for follow-up and continue management for recurrent atrial fibrillation, hypertension, obesity and lower extremity edema. Since last time I saw him he had to complain when his shortness of breath and when his lower extremity edema. He reports minor improvement with addition of Aldactone. He denies lightheadedness, dizziness or syncope. He admits to very limited exercise tolerance and dyspnea on exertion. His amlodipine was discontinued recently. ASSESSMENT: 1. Persistent and recurrent completely asymptomatic heart rate appears to be controlled on long-term anticoagulation. During last office visit he elected for heart rate control strategy 2. Abnormal echocardiogram demonstrating moderate range left ventricular hypertrophy ue to long-standing hypertension and the patient's body size. 3. Hypertension, controlled 4. Morbid obesity. With no recent weight changes 5. Moderate secondary pulmonary hypertension untreated sleep apnea hypertension 6 .sleep apnea. Patient admits he is not compliant with CPAP 7. Pulmonary hypertension due to sleep apnea 8. Edema with right heart failure due to pulmonary hypertension and sleep apnea 9. Shortness of breath with no recent ischemic evaluation RECOMMENDATION: 1. The patient elected for heart rate control and long-term anticoagulation. Risk, benefit alternative anticoagulation reviewed patient should and agreed 2. I advised him to lose weight and exercise. 3. Continue to encourage him to be compliant with his CPAP consider surgical orders Spire device treatment 3. We will proceed with Lexiscan myocardial perfusion study in view of complaint of shortness of breath and inability to exercise and his risk factors 4. Continue to restrict salt intake 5. Patient report he had lower extremity Doppler done in the past at [place] and it was negative for DVT and the patient is on chronic anticoagulation 6. Patient brought copy of his lab work which demonstrated a little bit elevated C-reactive protein which I indicated to him that it can indicate increased risk of heart disease and discussed with him at length primary prevention-7. Follow-up in 6 months Surgical History Problems History of Cardioversion History of Colectomy partial History of Colonoscopy [id number] History of Hernia repair History of Knee replacement Current Meds Medication NameInstruction Allopurinol 300 MG Oral TabletTAKE 1 TABLET DAILY. Carvedilol 25 MG Oral TabletTAKE 1 TABLET TWICE DAILY. Eliquis 5 MG Oral TabletTAKE 1 TABLET Twice daily Ferrous Sulfate 325 (65 Fe) MG Oral TabletTAKE 1 TABLET BY MOUTH EVERY DAY FOR 30 DAYS Folic Acid 1 MG Oral TabletTAKE 1 TABLET DAILY. Spironolactone 25 MG Oral TabletTAKE 1 TABLET BY MOUTH EVERY DAY Vitamin B-12 1000 MCG Oral TabletTAKE 1 TABLET DAILY DIRECTED. Vitamin C 500 MG Oral Capsule1 daily Vitamin D3 25 MCG (1000 UT) Oral TabletTAKE 5 TABLETS BY MOUTH ONCE DAILY Allergies Medication No Known Drug Allergies Recorded By: Angie Gamino; 05/09/2021 1:58:59 PM Social History Problems Consumes alcohol occasionally (V49.89) (Z78.9) Daily caffeine consumption, 1 serving a day 1 cup of coffee, soda occasionally Former smoker (V15.82) (Z87.891) quit 2000, 1/2 PPD (more content not included)... Normal [employer] Tobacco Screening.on 023 Adult depression screening assessment [facility] [employer] [facility] DO Work Phone: Fall risk assessment a) No falls within the last year [facility] [employer] 250 DO Work Phone: Tobacco use status [facility] b) No [facility] [employer] 250 DO Work Phone: Creatinine and Glomerular fi ltration rate.predicted panel (S/P/Bld)Ordered By: Tommy Bah on 04-27-2022 Creatinine [Mass/Vol] 1.05 mg/dL 0.64-1.27 [facility] Estimated glomerular filtrat ion rate (GFR) non- AmericanOrdered By: Tommy Bah on 04-27-2022 GFR/1.73 sq M.predicted among non-blacks MDRD (S/P/Bld) [Vol rate/Area] > 60 mL/Min [facility] No Panel InformationOrdered By: Tommy Bah on 04-27-2022 Estimated GFR () > 60 mL/Min [facility] Comment on above: GFR estimated refere nce range: According to KDOQI guidelines, <60 ml/min/1.73m2 is sufficient to diagnose a patient with chronic kidney disease. Pharmacy Creatinine Clearance (Chem 80.00 [facility] Serum or plasma anion gap de terminationOrdered By: Tommy Bah on 04-27-2022 Anion gap [Moles/Vol] 10.1 mmol/L 6.0-15.[address] [facility] Serum or plasma calcium rolando urement (mass/volume)Ordered By: Tommy Bah on 04-27-2022 Calcium [Mass/Vol] 8.7 mg/dL 8.2-10.2 [facility] Serum or plasma chloride miya surement (moles/volume)Ordered By: Tommy Bah on 04-27-2022 Chloride [Moles/Vol] 100 mmol/L 95-114 [facility] Serum or plasma glucose rolando urement (mass/volume)Ordered By: Tommy Bah on 04-27-2022 Glucose [Mass/Vol] 135 mg/dL 70-100 [facility] Comment on above: ADA recommended refe rence rangeRandom Glucose Reference Range is dependent on time and content of last meal. Glucose of more than 200 mg/dL in a nonstressed, ambulatory subject supports the diagnosis of Diabetes Mellitus. Serum or plasma potassium me asurement (moles/volume)Ordered By: Tommy Bah on 04-27-2022 Potassium [Moles/Vol] 3.5 mmol/L 3.5-5.1 [facility] Serum or plasma sodium measu rement (moles/volume)Ordered By: Tommy Bah on 04-27-2022 Sodium [Moles/Vol] 136 mmol/L 136-146 [facility] Serum or plasma total carbon dioxide measurement (moles/volume)Ordered By: Tommy Bah on 04-27-2022 CO2 [Moles/Vol] 29.4 mmol/L 22.0-30.0 [facility] Serum or plasma urea nitroge n measurement (mass/volume)Ordered By: Tommy Bah on 04-27-2022 Urea nitrogen [Mass/Vol] 21 mg/dL 03-28 [facility] Basophils Auto (Bld) [#/Vol] Ordered By: Rain Ramos on 04-21-2022 Basophils (Bld) [#/Vol] 0.0 10*3/uL 0.0-0.2 [facility] Basophils/100 WBC Auto (Bld) Ordered By: Rain Ramos on 04-21-2022 Basophils/100 WBC (Bld) 0.3 % . [facility] Eosinophils Auto (Bld) [#/Vo l]Ordered By: Rain Ramos on 04-21-2022 Eosinophils (Bld) [#/Vol] 0.3 10*3/uL 0.0-0.45 [facility] Eosinophils/100 WBC Auto (Bl d)Ordered By: Rain Ramos on 04-21-2022 Eosinophils/100 WBC (Bld) 2.4 % . [facility] Erythrocyte distribution wid th Auto (RBC) [Ratio]Ordered By: Rain Ramos on 04-21-2022 Erythrocyte distribution width (RBC) [Ratio] 14.2 % 12.0-14.8 [facility] Hematocrit Auto (Bld) [Volum e fraction]Ordered By: Rain Ramos on 04-21-2022 Hematocrit (Bld) [Volume fraction] 27.0 % 38.8-50.0 [facility] Hemoglobin [Mass/volume] in BloodOrdered By: Rain Ramos on 04-21-2022 Hemoglobin (Bld) [Mass/Vol] 9.3 g/dL 13.0-17.0 [facility] Laboratory - Hematology and Cell countsOrdered By: Rain Ramos on 04-21-2022 Nucleated RBC/100 WBC (Bld) [Ratio] 0.1 % 0-0.5 [facility] Leukocytes [#/volume] in Blo od by Automated countOrdered By: Rain Ramos on 04-21-2022 WBC (Bld) [#/Vol] 10.5 10*3/uL 4.5-11.0 [facility] Lymphocytes Auto (Bld) [#/Vo l]Ordered By: Rain Ramos on 04-21-2022 Lymphocytes (Bld) [#/Vol] 0.6 10*3/uL 1.00-4.8 [facility] Lymphocytes/100 WBC Auto (Bl d)Ordered By: Rain Ramos on 04-21-2022 Lymphocytes/100 WBC (Bld) 5.6 % . [facility] MCH Auto (RBC) [Entitic mass ]Ordered By: Rain Ramos on 04-21-2022 MCH (RBC) [Entitic mass] 36.0 pg 27.5-35.2 [facility] MCHC Auto (RBC) [Mass/Vol]Or dered By: Rain Ramos on 04-21-2022 MCHC (RBC) [Mass/Vol] 34.6 g/dL 32.5-35.6 [facility] MCV Auto (RBC) [Entitic vol] Ordered By: Rain Ramos on 04-21-2022 MCV (RBC) [Entitic vol] 104.0 fL 83.5-101 [facility] Monocytes Auto (Bld) [#/Vol] Ordered By: Rain Ramos on 04-21-2022 Monocytes (Bld) [#/Vol] 0.9 10*3/uL 0.0-0.8 [facility] Monocytes/100 WBC Auto (Bld) Ordered By: Rain Ramos on 04-21-2022 Monocytes/100 WBC (Bld) 8.5 % . [facility] Neutrophils Auto (Bld) [#/Vo l]Ordered By: Rain Ramos on 04-21-2022 Neutrophils (Bld) [#/Vol] 8.7 10*3/uL 1.8-7.7 [facility] Neutrophils/100 WBC Auto (Bl d)Ordered By: Rain Ramos on 04-21-2022 Neutrophils/100 WBC (Bld) 83.2 % . [facility] Platelet mean volume Auto (B ld) [Entitic vol]Ordered By: Rain Ramos on 04-21-2022 Platelet mean volume (Bld) [Entitic vol] 7.9 fL 6.6-10.1 [facility] Platelets Auto (Bld) [#/Vol] Ordered By: Rain Ramos on 04-21-2022 Platelets (Bld) [#/Vol] 180 10*3/uL 150-450 [facility] RBC Auto (Bld) [#/Vol]Ordere d By: Rain Ramos on 04-21-2022 RBC (Bld) [#/Vol] 2.59 10*6/uL 3.90-5.[address] [facility] [address] biopsyOrdered By: Rain naidu on 04-18-2022 Transferrin [Mass/Vol] 144 mg/dL 180-[address] [facility] Folate [Mass/volume] in Seru m or PlasmaOrdered By: Rain Ramos on 04-18-2022 Folate [Mass/Vol] 20.3 ng/mL >5.9 [facility] Comment on above: Folate reference ran ge: >5.9 ng/mlThe WHO technical consultation on folate and vitamin [id number] has determined that folate concentrations lessthan 4 ng/ml are considered deficient. Iron [Mass/volume] in Serum or PlasmaOrdered By: Rain Ramos on 04-18-2022 Iron [Mass/Vol] 23 ug/dL 40-160 [facility] Iron binding capacity [Mass/ volume] in Serum or PlasmaOrdered By: Rain Ramos on 04-18-2022 Iron binding capacity [Mass/Vol] 202 ug/dL 255-450 [facility] Iron saturation [Mass Fracti on] in Serum or PlasmaOrdered By: Rain Ramos on 04-18-2022 Iron saturation [Mass fraction] 11.0 % 20-50 [facility] Laboratory - Chemistry and C hemistry - challengeOrdered By: Rain Ramos on 04-18-2022 Cobalamin (Vitamin B12) [Mass/Vol] 1866 pg/mL 180-914 [facility] TSH DL <= 0.005 mIU/L QnOrde red By: Rain Ramos on 04-18-2022 TSH Qn 1.28 m[IU]/L 0.45-5.33 [facility] Thyroxine (T4) free [Mass/vo lume] in Serum or PlasmaOrdered By: Rain Ramos on 04-18-2022 Free T4 [Mass/Vol] 1.06 ng/dL 0.61-1.12 [facility] Bilirubin Test strip Ql (U)O rdered By: Lillian Harris on 04-17-2022 Bilirubin Ql (U) Negative Negative [facility] Color Auto (U)Ordered By: Wu Harris on 04-17-2022 Color (U) Yellow Yellow [facility] Ketones Auto test strip (U) [Mass/Vol]Ordered By: Lillian Harris on 04-17-2022 Ketones (U) [Mass/Vol] Negative Negative [facility] Nitrite Test strip Ql (U)Ord ered By: Lillian Harris on 04-17-2022 Nitrite Ql (U) Negative Negative [facility] Protein Auto test strip (U) [Mass/Vol]Ordered By: Lillian Harris on 04-17-2022 Protein (U) [Mass/Vol] Negative Negative [facility] Specific gravity Auto test s trip (U) [Rel density]Ordered By: Lillian Harris on 04-17-2022 Specific gravity (U) [Rel density] 1.020 1.001-1.03 0 [facility] Urine clarity by refractomet ry automatedOrdered By: Lillian Harris on 04-17-2022 Clarity Refractometry automated (U) Clear Clear [facility] Urine glucose measurement by automated test strip (mass/volume)Ordered By: Lillian Harris on 04-17-2022 Glucose Auto test strip (U) [Mass/Vol] Normal mg/dL Normal [facility] Urine hemoglobin detection b y automated test stripOrdered By: Lillian Harris on 04-17-2022 Hemoglobin Auto test strip Ql (U) Negative Negative [facility] Urine leukocyte esterase det ection by automated test stripOrdered By: Lillian Harris on 04-17-2022 Leukocyte esterase Auto test strip Ql (U) Negative Negative [facility] Urobilinogen Auto test strip (U) [Mass/Vol]Ordered By: Lillian Harris on 04-17-2022 Urobilinogen (U) [Mass/Vol] Normal mg/dL Normal [facility] pH Auto test strip (U)Ordere d By: Lillian Harris on 04-17-2022 pH (U) 5.5 [pH] 5.0-9.0 [facility] Albumin [Mass/volume] in Ser um or PlasmaOrdered By: Lillian Harris on 04-16-2022 Albumin [Mass/Vol] 2.6 g/dL 3.2-5.5 [facility] Globulin Calc (S) [Mass/Vol] Ordered By: Lillian Harris on 04-16-2022 Globulin (S) [Mass/Vol] 2.4 g/dL [facility] Protein [Mass/volume] in Ser um or PlasmaOrdered By: Lillian Harris on 04-16-2022 Protein [Mass/Vol] 5.0 g/dL 6.1-7.9 [facility] Serum or plasma alanine carson otransferase measurement without P-5'-P (enzymatic activiOrdered By: Lillian Harris on 04-16-2022 ALT No additional P-5'-P [Catalytic activity/Vol] 7 U/L 10-60 [facility] Serum or plasma albumin/glob ulin mass ratioOrdered By: Lillian Harris on 04-16-2022 Albumin/Globulin [Mass ratio] 1.1 {ratio} [facility] Serum or plasma alkaline pablito sphatase measurement (enzymatic activity/volume)Ordered By: Lillian Harris on 04-16-2022 ALP [Catalytic activity/Vol] 38 U/L 32-92 [facility] Serum or plasma aspartate am inotransferase measurement (enzymatic activity/volume)Ordered By: Lillian Harris 04-16-2022 AST [Catalytic activity/Vol] 13 U/L 10-42 [facility] Serum or plasma prealbumin m easurement (mass/volume)Ordered By: Lillian Harris on 04-16-2022 Prealbumin [Mass/Vol] 15.3 mg/dL 18.0-38.0 [facility] Serum or plasma total biliru bin measurement (mass/volume)Ordered By: Lillian Harris on 04-16-2022 Bilirubin [Mass/Vol] 0.8 mg/dL 0.3-1.2 [facility] Basophils Auto (Bld) [#/Vol] Ordered By: Andrea Govea on 04-15-2022 Basophils (Bld) [#/Vol] 0.0 10*3/uL 0.0-0.2 [facility] Basophils/100 WBC Auto (Bld) Ordered By: Andrea Govea on 04-15-2022 Basophils/100 WBC (Bld) 0.1 % . [facility] Blood hemoglobin measurement (mass/volume)Ordered By: Andrea Govea on 04-15-2022 Hemoglobin (Bld) [Mass/Vol] 10.4 g/dL 13.0-17.0 [facility] Blood leukocytes automated c ount (number/volume)Ordered By: Andrea Govea on 04-15-2022 WBC (Bld) [#/Vol] 12.1 10*3/uL 4.5-11.0 [facility] COVID-19 Positive/NegativeOr dered By: Andrea Govea on 04-15-2022 SARS-CoV-2 (COVID-19) N gene MALIHA+probe Ql (Resp) Negative Negative [facility] Comment on above: Testing for SARS-CoV -2 by RT-PCRThis test was developed and its performance characteristics determined by [employer] ([employer] and validated at the [facility]. This test has not been FDA cleared or approved. This test has been authorized by FDA under an Emergency Use Authorization (EUA). This test has been validated in accordance with the FDA's Guidance Document (Policy for Diagnostics Testing in Laboratories Certified to Perform High Complexity Testing under CLIA prior to Emergency Use Authorization for Coronavirus Disease-2019 during the Public Health Emergency) issued on October 06, 2019. This test is only authorized for the duration of time the declaration that circumstances exist justifying the authorization of the emergency use of in vitro diagnostic tests for detection of SARS-CoV-2 virus and/or diagnosis of COVID-19 infection under section 564(b)(1) of the Act, 21 U.S.C. 360bbb-3(b)(1), unless the authorization is terminated or revoked sooner. Creatinine and Glomerular fi ltration rate.predicted panel (S/P/Bld)Ordered By: Andrea Govea on 04-15-2022 Creatinine [Mass/Vol] 1.20 mg/dL 0.64-1.27 [facility] Eosinophils Auto (Bld) [#/Vo l]Ordered By: Andrea Govea on 04-15-2022 Eosinophils (Bld) [#/Vol] 0.0 10*3/uL 0.0-0.45 [facility] Eosinophils/100 WBC Auto (Bl d)Ordered By: Andrea Govea on 04-15-2022 Eosinophils/100 WBC (Bld) 0.0 % . [facility] Erythrocyte distribution wid th Auto (RBC) [Ratio]Ordered By: Andrea Govea on 04-15-2022 Erythrocyte distribution width (RBC) [Ratio] 14.0 % 12.0-14.8 [facility] Estimated glomerular filtrat ion rate (GFR) non- AmericanOrdered By: Andrea Govea on 04-15-2022 GFR/1.73 sq M.predicted among non-blacks MDRD (S/P/Bld) [Vol rate/Area] 59 mL/Min [facility] Folate [Mass/volume] in Seru m or PlasmaOrdered By: Tonya Mcgregor on 04-15-2022 Folate [Mass/Vol] 5.0 ng/mL >5.9 [facility] Comment on above: Folate reference ran ge: >5.9 ng/mlThe WHO technical consultation on folate and vitamin [id number] has determined that folate concentrations lessthan 4 ng/ml are considered deficient. Hematocrit Auto (Bld) [Volum e fraction]Ordered By: Andrea Govea on 04-15-2022 Hematocrit (Bld) [Volume fraction] 30.2 % 38.8-50.0 [facility] Laboratory - Chemistry and C hemistry - challengeOrdered By: Tonya Mcgregor on 04-15-2022 Cobalamin (Vitamin B12) [Mass/Vol] 238 pg/mL 180-914 [facility] Laboratory - Hematology and Cell countsOrdered By: Andrea Govea on 04-15-2022 Nucleated RBC/100 WBC (Bld) [Ratio] 0.0 % 0-0.5 [facility] Lymphocytes Auto (Bld) [#/Vo l]Ordered By: Andrea Govea on 04-15-2022 Lymphocytes (Bld) [#/Vol] 0.4 10*3/uL 1.00-4.8 [facility] Lymphocytes/100 WBC Auto (Bl d)Ordered By: Andrea Govea on 04-15-2022 Lymphocytes/100 WBC (Bld) 3.5 % . [facility] MCH Auto (RBC) [Entitic mass ]Ordered By: Andrea Govea on 04-15-2022 MCH (RBC) [Entitic mass] 35.5 pg 27.5-35.2 [facility] MCHC Auto (RBC) [Mass/Vol]Or dered By: Andrea Govea on 04-15-2022 MCHC (RBC) [Mass/Vol] 34.5 g/dL 32.5-35.6 [facility] MCV Auto (RBC) [Entitic vol] Ordered By: Andrea Govea on 04-15-2022 MCV (RBC) [Entitic vol] 103.0 fL 83.5-101 [facility] Monocytes Auto (Bld) [#/Vol] Ordered By: Andrea Govea on 04-15-2022 Monocytes (Bld) [#/Vol] 0.6 10*3/uL 0.0-0.8 [facility] Monocytes/100 WBC Auto (Bld) Ordered By: Andrea Govea on 04-15-2022 Monocytes/100 WBC (Bld) 4.8 % . [facility] Neutrophils Auto (Bld) [#/Vo l]Ordered By: Andrea Govea on 04-15-2022 Neutrophils (Bld) [#/Vol] 11.1 10*3/uL 1.8-7.7 [facility] Neutrophils/100 WBC Auto (Bl d)Ordered By: Andrea Govea on 04-15-2022 Neutrophils/100 WBC (Bld) 91.6 % . [facility] No Panel InformationOrdered By: Andrea Govea on 04-15-2022 Estimated GFR () > 60 mL/Min [facility] Comment on above: GFR estimated refere nce range: According to KDOQI guidelines, <60 ml/min/1.73m2 is sufficient to diagnose a patient with chronic kidney disease. Pharmacy Creatinine Clearance (Chem 70.06 [facility] Platelet mean volume Auto (B ld) [Entitic vol]Ordered By: Andrea Govea on 04-15-2022 Platelet mean volume (Bld) [Entitic vol] 7.6 fL 6.6-10.1 [facility] Platelets Auto (Bld) [#/Vol] Ordered By: Andrea Govea on 04-15-2022 Platelets (Bld) [#/Vol] 128 10*3/uL 150-450 [facility] RBC Auto (Bld) [#/Vol]Ordere d By: Andrea Govea on 04-15-2022 RBC (Bld) [#/Vol] 2.93 10*6/uL 3.90-5.60 [facility] [facility] or plasma anion gap de terminationOrdered By: Andrea Govea on 04-15-2022 Anion gap [Moles/Vol] 13.9 mmol/L 6.0-15.[address] [facility] Serum or plasma calcium rolando urement (mass/volume)Ordered By: Andrea Govea on 04-15-2022 Calcium [Mass/Vol] 8.9 mg/dL 8.2-10.2 [facility] Serum or plasma chloride miya surement (moles/volume)Ordered By: Andrea Govea on 04-15-2022 Chloride [Moles/Vol] 94 mmol/L 95-114 [facility] Serum or plasma glucose rolando urement (mass/volume)Ordered By: Andrea Govea on 04-15-2022 Glucose [Mass/Vol] 192 mg/dL 70-100 [facility] Comment on above: ADA recommended refe rence rangeRandom Glucose Reference Range is dependent on time and content of last meal. Glucose of more than 200 mg/dL in a nonstressed, ambulatory subject supports the diagnosis of Diabetes Mellitus. Serum or plasma potassium me asurement (moles/volume)Ordered By: Andrea Govea on 04-15-2022 Potassium [Moles/Vol] 4.6 mmol/L 3.5-5.1 [facility] Serum or plasma sodium measu rement (moles/volume)Ordered By: Andrea Govea on 04-15-2022 Sodium [Moles/Vol] 128 mmol/L 136-146 [facility] Serum or plasma total carbon dioxide measurement (moles/volume)Ordered By: Andrea Govea on 04-15-2022 CO2 [Moles/Vol] 24.7 mmol/L 22.0-30.0 [facility] Serum or plasma urea nitroge n measurement (mass/volume)Ordered By: Andrea Govea on 04-15-2022 Urea nitrogen [Mass/Vol] 21 mg/dL 9-23 [facility] TSH DL <= 0.005 mIU/L QnOrde red By: Tonya Mcgregor on 04-15-2022 TSH Qn 0.42 m[IU]/L 0.45-5.33 [facility] COVID-19 Positive/NegativeOr dered By: Andrea Govea on 04-10-2022 SARS-CoV-2 (COVID-19) N gene MALIHA+probe Ql (Resp) Negative Negative [facility] Comment on above: Testing for SARS-CoV -2 by RT-PCRThis test was developed and its performance characteristics determined by [employer] and validated at the [facility]. This test has not been FDA cleared or approved. This test has been authorized by FDA under an Emergency Use Authorization (EUA). This test has been validated in accordance with the FDA's Guidance Document (Policy for Diagnostics Testing in Laboratories Certified to Perform High Complexity Testing under CLIA prior to Emergency Use Authorization for Coronavirus Disease-2019 during the Public Health Emergency) issued on October 06, 2019. This test is only authorized for the duration of time the declaration that circumstances exist justifying the authorization of the emergency use of in vitro diagnostic tests for detection of SARS-CoV-2 virus and/or diagnosis of COVID-19 infection under section 564(b)(1) of the Act, 21 U.S.C. 360bbb-3(b)(1), unless the authorization is terminated or revoked sooner. PROF CHEM 8 (BAS METB)on Anion gap [Moles/Vol] 12.3 mmol/L Normal [facility] Comment on above: Performed By: #### B #### [facility] [address] [place] [address] Dr. Jonelle Lechuga Calcium [Mass/Vol] 9.0 mg/dL Normal 8.5-10.1 [facility] Comment on above: Performed By: #### B MP #### [facility] [address] [address] [address] Jonelle Lechuga Chloride [Moles/Vol] 95 mmol/L Critically low 98-107 [facility] Comment on above: Performed By: #### B MP #### [facility] [address] [address] [address] Jonelle Lechuga CO2 [Moles/Vol] 27.5 mmol/L Normal 21.0-32.0 [facility] Comment on above: Performed By: #### B MP #### [facility] [address] [place] [address] Dr. Jonelle Lechuga Creatinine [Mass/Vol] 1.58 mg/dL Critically high 0.70-1.30 [facility] Comment on above: Performed By: #### B MP #### [facility] [address] [place] [address] Dr. Jonelle Lechuga EGFR-AF IVORIAN 52 mL/min/1.73m2 Critically low >=60 [facility] Comment on above: Performed By: #### B MP #### [facility] [address] [place] [address] Dr. Jonelle Lechuga EGFR-NON AF IVORIAN 43 mL/min/1.73m2 Critically low >=60 [facility] Comment on above: Performed By: #### B MP #### [facility] [address] [address] [address] Jonelle Lechuga Glucose [Mass/Vol] 140 mg/dL Critically high 74-106 [facility] Comment on above: Performed By: #### B MP #### [facility] [address] [address] [address] Jonelle Lechuga Potassium [Moles/Vol] 4.8 mmol/L Normal 3.5-5.1 [facility] Comment on above: Performed By: #### B MP #### [facility] [address] [place] [address] Dr. Jonelle Lechuga Sodium [Moles/Vol] 130 mmol/L Critically low 136-145 [facility] Comment on above: Performed By: #### B MP #### [facility] [address] [address] [address] Jonelle Lechuga Urea nitrogen [Mass/Vol] 28.0 mg/dL Critically high 7.0-18.0 [facility] Comment on above: Performed By: #### B MP #### [facility] [address] [address] [address] Jonelle Lechuga Urea nitrogen/Creatinine [Mass ratio] 17.7 mg/mg Normal [facility] Comment on above: Performed By: #### B MP #### [facility] [address] [address] [address] Jonelle Lechuga Automated erythrocytes count in urine sediment (number/area)Ordered By: Andrea Govea on 03-31-2022 RBC Auto (Urine sed) [#/Area] 0-1 [HPF] 0-4 [facility] Automated leukocytes count i n urine sediment (number/area)Ordered By: Andrea Govea on 03-31-2022 WBC Auto (Urine sed) [#/Area] 0-1 [HPF] 0-4 [facility] Basophils Auto (Bld) [#/Vol] Ordered By: Andrea Govea on 03-31-2022 Basophils (Bld) [#/Vol] 0.0 10*3/uL 0.0-0.2 [facility] Basophils/100 WBC Auto (Bld) Ordered By: Andrea Govea on 03-31-2022 Basophils/100 WBC (Bld) 0.2 % . [facility] Bilirubin Test strip Ql (U)O rdered By: Andrea Govea on 03-31-2022 Bilirubin Ql (U) Negative Negative [facility] Blood hemoglobin measurement (mass/volume)Ordered By: Andrea Govea on 03-31-2022 Hemoglobin (Bld) [Mass/Vol] 11.7 g/dL 13.0-17.0 [facility] Blood leukocytes automated c ount (number/volume)Ordered By: Andrea Govea on 03-31-2022 WBC (Bld) [#/Vol] 9.1 10*3/uL 4.5-11.0 [facility] CT biopsyOrdered By: Andrea Govea on 03-31-2022 CT biopsy 261 umol/L 0-285 [facility] Comment on above: Published reference interval for apparently healthysubjects between age 20 and 60 is 205 - 285 umol/L and in apoorly controlled diabetic population is 228 - 563 umol/Lwith a mean of 396 umol/L.Performed at: [facility] [id number] Director: Mango Cantu PhD, Phone: [phone] Color Auto (U)Ordered By: Silvina Govea on 03-31-2022 Color (U) Dark yellow Yellow [facility] Creatinine and Glomerular fi ltration rate.predicted panel (S/P/Bld)Ordered By: Andrea Govea on 03-31-2022 Creatinine [Mass/Vol] 1.80 mg/dL 0.64-1.27 [facility] Eosinophils Auto (Bld) [#/Vo l]Ordered By: Andrea Govea on 03-31-2022 Eosinophils (Bld) [#/Vol] 0.1 10*3/uL 0.0-0.45 [facility] Eosinophils/100 WBC Auto (Bl d)Ordered By: Andrea Govea on 03-31-2022 Eosinophils/100 WBC (Bld) 1.5 % . [facility] Erythrocyte distribution wid th Auto (RBC) [Ratio]Ordered By: Andrea Govea on 03-31-2022 Erythrocyte distribution width (RBC) [Ratio] 14.0 % 12.0-14.8 [facility] Estimated glomerular filtrat ion rate (GFR) non- AmericanOrdered By: Andrea Govea on 03-31-2022 GFR/1.73 sq M.predicted among non-blacks MDRD (S/P/Bld) [Vol rate/Area] 37 mL/Min [facility] Hematocrit Auto (Bld) [Volum e fraction]Ordered By: Andrea Govea on 03-31-2022 Hematocrit (Bld) [Volume fraction] 32.9 % 38.8-50.0 [facility] Ketones Auto test strip (U) [Mass/Vol]Ordered By: Andrea Govea on 03-31-2022 Ketones (U) [Mass/Vol] 1+ Negative [facility] - Hematology and Cell countsOrdered By: Andrea Govea on 03-31-2022 Nucleated RBC/100 WBC (Bld) [Ratio] 0.0 % 0-0.5 [facility] - UrinalysisOrder ed By: Andrea Govea on 03-31-2022 Hyaline casts LM Ql (Urine sed) 9-19 [LPF] 0-8 [facility] Lymphocytes Auto (Bld) [#/Vo l]Ordered By: Andrea Govea on 03-31-2022 Lymphocytes (Bld) [#/Vol] 0.8 10*3/uL 1.00-4.8 [facility] Lymphocytes/100 WBC Auto (Bl d)Ordered By: Andrea Govea on 03-31-2022 Lymphocytes/100 WBC (Bld) 8.7 % . [facility] MCH Auto (RBC) [Entitic mass ]Ordered By: Andrea Govea on 03-31-2022 MCH (RBC) [Entitic mass] 36.4 pg 27.5-35.2 [facility] MCHC Auto (RBC) [Mass/Vol]Or dered By: Andrea Govea on 03-31-2022 MCHC (RBC) [Mass/Vol] 35.6 g/dL 32.5-35.6 [facility] MCV Auto (RBC) [Entitic vol] Ordered By: Andrea Govea on 03-31-2022 MCV (RBC) [Entitic vol] 102.2 fL 83.5-101 [facility] Monocytes Auto (Bld) [#/Vol] Ordered By: Andrea Govea on 03-31-2022 Monocytes (Bld) [#/Vol] 0.7 10*3/uL 0.0-0.8 [facility] Monocytes/100 WBC Auto (Bld) Ordered By: Andrea Govea on 03-31-2022 Monocytes/100 WBC (Bld) 7.4 % . [facility] Neutrophils Auto (Bld) [#/Vo l]Ordered By: Andrea Govea on 03-31-2022 Neutrophils (Bld) [#/Vol] 7.5 10*3/uL 1.8-7.7 [facility] Neutrophils/100 WBC Auto (Bl d)Ordered By: Andrea Govea on 03-31-2022 Neutrophils/100 WBC (Bld) 82.2 % . [facility] Nitrite Test strip Ql (U)Ord ered By: Andrea Govea on 03-31-2022 Nitrite Ql (U) Negative Negative [facility] No Panel InformationOrdered By: Andrea Govea on 03-31-2022 Estimated GFR () 44 mL/Min [facility] Comment on above: GFR estimated refere nce range: According to KDOQI guidelines, <60 ml/min/1.73m2 is sufficient to diagnose a patient with chronic kidney disease. Pharmacy Creatinine Clearance (Chem N/A [facility] Platelet mean volume Auto (B ld) [Entitic vol]Ordered By: Andrea Govea on 03-31-2022 Platelet mean volume (Bld) [Entitic vol] 7.5 fL 6.6-10.1 [facility] Platelets Auto (Bld) [#/Vol] Ordered By: Andrea Govea on 03-31-2022 Platelets (Bld) [#/Vol] 155 10*3/uL 150-450 [facility] Protein Auto test strip (U) [Mass/Vol]Ordered By: Andrea Govea on 03-31-2022 Protein (U) [Mass/Vol] Negative Negative [facility] RBC Auto (Bld) [#/Vol]Ordere d By: Andrea Govea on 03-31-2022 RBC (Bld) [#/Vol] 3.22 10*6/uL 3.90-5.60 [facility] Serum or plasma anion gap de terminationOrdered By: Andrea Govea on 03-31-2022 Anion gap [Moles/Vol] 14.1 mmol/L 6.0-15.[address] [facility] Serum or plasma calcium rolando urement (mass/volume)Ordered By: Andrea Govea on 03-31-2022 Calcium [Mass/Vol] 9.2 mg/dL 8.2-10.2 [facility] Serum or plasma chloride miya surement (moles/volume)Ordered By: Andrea Govea on 03-31-2022 Chloride [Moles/Vol] 93 mmol/L 95-114 [facility] Serum or plasma glucose rolando urement (mass/volume)Ordered By: Andrea Govea on 03-31-2022 Glucose [Mass/Vol] 121 mg/dL 70-100 [facility] Comment on above: ADA recommended refe rence rangeRandom Glucose Reference Range is dependent on time and content of last meal. Glucose of more than 200 mg/dL in a nonstressed, ambulatory subject supports the diagnosis of Diabetes Mellitus. Serum or plasma potassium me asurement (moles/volume)Ordered By: Andrea Govea on 03-31-2022 Potassium [Moles/Vol] 5.1 mmol/L 3.5-5.1 [facility] Serum or plasma sodium measu rement (moles/volume)Ordered By: Andrea Govea on 03-31-2022 Sodium [Moles/Vol] 129 mmol/L 136-146 [facility] Serum or plasma total carbon dioxide measurement (moles/volume)Ordered By: Andrea Govea on 03-31-2022 CO2 [Moles/Vol] 27.0 mmol/L 22.0-30.0 [facility] Serum or plasma urea nitroge n measurement (mass/volume)Ordered By: Andrea Govea on 03-31-2022 Urea nitrogen [Mass/Vol] 33 mg/dL 9-23 [facility] Specific gravity Auto test s trip (U) [Rel density]Ordered By: Andrea Govea on 03-31-2022 Specific gravity (U) [Rel density] 1.020 1.001-1.03 0 [facility] Squamous epithelial cells de tection in urine sediment by light microscopyOrdered By: Andrea Govea on 03-31-2022 Epithelial cells.squamous LM Ql (Urine sed) 0-1 [HPF] 0-2 [facility] Urine bacteria detection by automated methodOrdered By: Andrea Govea on 03-31-2022 Bacteria Auto Ql (U) None seen None Seen [facility] Urine clarity by refractomet ry automatedOrdered By: Andrea Govea on 03-31-2022 Clarity Refractometry automated (U) Clear Clear [facility] Urine glucose measurement by automated test strip (mass/volume)Ordered By: Andrea Govea on 03-31-2022 Glucose Auto test strip (U) [Mass/Vol] Normal mg/dL Normal [facility] Urine hemoglobin detection b y automated test stripOrdered By: Andrea Govea on 03-31-2022 Hemoglobin Auto test strip Ql (U) Negative Negative [facility] Urine leukocyte esterase det ection by automated test stripOrdered By: Andrea Govea on 03-31-2022 Leukocyte esterase Auto test strip Ql (U) 2+ Negative [facility] Urobilinogen Auto test strip (U) [Mass/Vol]Ordered By: Andrea Govea on 03-31-2022 Urobilinogen (U) [Mass/Vol] Normal mg/dL Normal [facility] pH Auto test strip (U)Ordere d By: Andrea Govea on 03-31-2022 pH (U) 5.5 [pH] 5.0-9.0 [facility] Albumin [Mass/volume] in Ser um or PlasmaOrdered By: Andrea Govea on 02-04-2022 Albumin [Mass/Vol] 3.6 g/dL 3.2-5.5 [facility] Blood hemoglobin measurement (mass/volume)Ordered By: Andrea Govea on 02-04-2022 Hemoglobin (Bld) [Mass/Vol] 12.6 g/dL 13.0-17.0 [facility] Cotinine [Mass/volume] in Se rum or PlasmaOrdered By: Andrea Govea on 02-04-2022 Cotinine [Mass/Vol] <1.0 ng/mL . [facility] Comment on above: This test was develo ped and its performance characteristics determined by [employer]. It has not been cleared or approved by the Food and Drug Administration. Cotinine levels greater than 20.0 are consistent with the use of tobacco or tobacco cessation products. Performed at: [address] [id number] [place] Caller: Daniel Ann MD, Phone: [phone] This test was develo ped and its performance characteristicsdetermined by [employer]. It has not been cleared orapproved by the Food and Drug Administration.Cotinine levels greater than 20.0 are consistent with theuse of tobacco or tobacco cessation products.Performed at: [id number] [place], [place] [id number] Director: Daniel Ann MD, Phone: [phone] Glucose mean value [Mass/vol ume] in Blood Estimated from glycated hemoglobinOrdered By: Andrea Govea on 02-04-2022 Average glucose Estimated from glycated hemoglobin (Bld) [Mass/Vol] 114 mg/dL [facility] Hemoglobin A1c percentageOrd ered By: Andrea Govea on 02-04-2022 HbA1c (Bld) [Mass fraction] 5.6 % 4.3-5.6 [facility] Comment on above: Increased risk for d iabetes: 5.7 - 6.4 diabetes: >6.4 glycemic control for adults with diabetes: <7.0 Increased risk for d iabetes: 5.7 - 6.4diabetes: >6.4glycemic control for adults with diabetes: <7.0 Nicotine [Mass/volume] in Se rum or PlasmaOrdered By: Andrea Govea on 02-04-2022 Nicotine [Mass/Vol] <1.0 ng/mL . [facility] Comment on above: This test was develo ped and its performance characteristics determined by [employer]. It has not been cleared or approved by the Food and Drug Administration. Nicotine levels greater than 2.0 are consistent with the use of tobacco or tobacco cessation products. This test was develo ped and its performance characteristicsdetermined by [employer]. It has not been cleared orapproved by the Food and Drug Administration.Nicotine levels greater than 2.0 are consistent with theuse of tobacco or tobacco cessation products. No Panel InformationOrdered By: Andrea Govea on 02-04-2022 25-Hydroxy Vitamin D Total 28.5 ng/mL 30-100 [facility] Comment on above: VITAMIN D STATUS 25( [place])VITAMIN D RANGE (ng/mL) Deficient <20 Insufficient 20 to <30 Sufficient 30 to 100 Reference: Candelaria MF,Vicenta FORDE, Marcelo MASCORRO, et al. Evaluation,treatment, and prevention of vitamin D deficiency; an Endocrine Society clinical practice guideline. JCEM. 2010; 96(7):1911-30. VITAMIN D STATUS 25( [place])VITAMIN D RANGE (ng/mL) Deficient <20 Insufficient 20 to <30Sufficient 30 to 100Reference: Candelaria MF,Vicenta NC, Marcelo MASCORRO, et al. Evaluation,treatment, and prevention of vitamin D deficiency; an Endocrine Society clinical practice guideline. JCEM. 2010; 96(7):1911-30. Tobacco Screening.on Fall risk assessment a) No falls within the last year -[facility] viola 250 DO Work Phone: Tobacco use status [facility] b) No -[facility] viol[address] 250 DO Work Phone: Tobacco Screening.on Adult depression screening assessment No [facility] 250 DO Work Phone: Fall risk assessment a) No falls within the last year [facility] 250 DO Work Phone: Tobacco use status [facility] b) No -[facility] viola 250 DO Work Phone: MRI KNEE RT WO CONon MRI KNEE RT WO CON EXAM: MRI KNEE RT WO CON COMPARISON: Right knee x-rays from 07/12/2021. HISTORY: Chronic right knee pain. TECHNIQUE: Multiplanar and multisequence imaging of the right knee was performed without contrast. FINDINGS: The ACL is not visualized consistent with a chronic complete tear of the ACL and chronic ACL deficient knee. Intermediate signal of the PCL is consistent with intrasubstance degeneration. The collateral ligaments are intact. The patellar tendon, distal quadriceps tendon, and iliotibial band are intact. There is artifact in the soft tissues adjacent to the distal fibers of the patellar tendon. Bandlike area of fluid signal anterior to the patella is consistent with mild prepatellar bursitis. Severe degenerative change/osteoarthritis involves the medial compartment with extensive high-grade and full thickness articular cartilage loss. There is bony remodeling of the medial femoral condyle and medial tibial plateau with moderate to marked adjacent cystic change and mild bone marrow edema. There is a complex morphology tear throughout the body and posterior horn of the medial meniscus. There is a free edge and undersurface tear of the posterior horn of the lateral meniscus with intrasubstance degeneration involving the lateral meniscus. Low-grade to moderate grade articular cartilage loss is present in the lateral compartment more pronounced towards the intercondylar notch. There is a small to moderate joint effusion with synovial thickening and mild synovitis. Moderate to high-grade articular cartilage loss is present in the patellofemoral compartment. There is a small Rivas's cyst. IMPRESSION: 1. 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 There is moderate to marked subarticular cystic change and mild subchondral bone marrow edema likely reactive in etiology. 2. There is a complex tear of the body and posterior horn of the medial meniscus. 3. There is a free edge and undersurface tear of the posterior horn of the lateral meniscus with low to moderate grade articular cartilage loss in the lateral compartment. 4. 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 5. There is a small to moderate joint effusion with synovial thickening and synovitis. Moderate to high-grade articular cartilage loss is present in the patellofemoral compartment. 6. Mild prepatellar bursitis. Electronically authenticated by: RAHEEM GRAHAM Date: 2021-07-22 12:52 Normal [facility] Covid-19 PCR (CVDTB)on 06-06 SARS-CoV-2 (COVID-19) RNA MALIHA+probe Ql (Unsp spec) Not detected Normal NOT DETECTED [facility] Comment on above: Result Comment: This test is not yet approved or cleared by the [place] FDA. When there are no FDA-approved or cleared tests available, and other criteria are met, FDA can make tests available under an emergency access mechanism called an Emergency Use Authorization (EUA). The EUA for this test is supported by the [place] of Health and Human Service's (HHS's) declaration that circumstances exist to justify the emergency use of in vitro diagnostics for the detection and/or diagnosis of the virus that causes COVID-19. This EUA will remain in effect (meaning this test can be used) for the duration of the COVID-19 declaration justifying emergency of IVDs, unless it is terminated or revoked by FDA (after which the test may no longer be used). When diagnostic testing is negative, the possibility of a false negative should be considered in the context of a patient's recent exposures and the presence of clinical signs and symptoms consistent with SARS-CoV-2. Performed By: #### C VDTBH #### [facility] [address] [address] [address] Jonelle Lechuga INSULINon 06-13-2021 Insulin 4.2 uIU/mL Normal 2.6-24.9 [facility] Comment on above: Performed By: #### I NSULIN ####[facility] [id number] [address]Dr[address] Jonelle Lechuga BNPon 06-12-2021 Natriuretic peptide B (Bld) [Mass/Vol] 731.0 pg/mL Normal <=1,800.0 [facility] Comment on above: Performed By: #### C MP, URIC, LIPID, BNP ####[facility] [id number] [address]Dr. Jonelle Lechuga CBC AUTO DIFFon 06-12-2021 BASO # 0.0 103/ul Normal 0.0-0.1 [facility] Comment on above: Performed By: #### C BC #### [facility] [address] [place] [address] Dr. Jonelle Lechuga Basophils/100 WBC (Bld) 0.3 % Normal 0.2-2.0 [facility] Comment on above: Performed By: #### C BC #### [facility] [address] [place] [address] Dr. Jonelle Lechuga EO # 0.2 103/ul Normal 0.0-0.7 [facility] Comment on above: Performed By: #### C BC #### [facility] [address] [place] [address] Dr. Jonelle Lechuga Eosinophils/100 WBC (Bld) 3.5 % Normal 0.9-7.0 [facility] Comment on above: Performed By: #### C BC #### [facility] [address] [place] [address] Dr. Jonelle Lechuga Erythrocyte distribution width (RBC) [Ratio] 13.9 % Normal 11.0-15.0 [facility] Comment on above: Performed By: #### C BC #### [facility] [address] [place] [address] Dr. Jonelle Lechuga Hematocrit (Bld) [Volume fraction] 36.9 % Critically low 42.0-54.0 [facility] Comment on above: Performed By: #### C BC #### [facility] [address] [place] [address] Dr. Jonelle Lechuga Hemoglobin (Bld) [Mass/Vol] 12.9 g/dL Critically low 14.0-18.0 [facility] Comment on above: Performed By: #### C BC #### [facility] [address] [place] [address] Dr. Jonelle Lechuga IG # 0.01 10e3/ul Normal 0.00-0.03 [facility] Comment on above: Performed By: #### C BC #### [facility] [address] [place] [address] Dr. Jonelle Lechuga IG % 0.2 % Normal 0.0-0.5 [facility] Comment on above: Performed By: #### C BC #### [facility] [address] [place] [address] Dr. Jonelle Lechuga LYMPH # 0.7 103/ul Critically low 1.2-3.8 [facility] Comment on above: Performed By: #### C BC #### [facility] [address] [place] [address] Dr. Jonelle Lechuga Lymphocytes/100 WBC (Bld) 11.1 % Critically low 20.5-60.0 [facility] Comment on above: Performed By: #### C BC #### [facility] [address] [place] [address] Dr. Jonelle Lechuga MANUAL DIFF REQ NO Normal [facility] Comment on above: Performed By: #### C BC #### [facility] [address] [place] [address] Dr. oJnelle Lechuga MCH (RBC) [Entitic mass] 35.0 pg Critically high 25.9-34.0 [facility] Comment on above: Performed By: #### C BC #### [facility] [address] [place] [address] Dr. Jonelle Lechuga MCHC (RBC) [Mass/Vol] 35.0 g/dL Normal 29.9-35.2 [facility] Comment on above: Performed By: #### C BC #### [facility] [address] [place] [address] Dr. Jonelle Lechuga MCV (RBC) [Entitic vol] 100.0 fL Critically high 80.0-94.0 [facility] Comment on above: Performed By: #### C BC #### [facility] [address] [place] [address] Dr. Jonelle Lechuga MONO # 0.5 103/ul Normal 0.3-0.8 [facility] Comment on above: Performed By: #### C BC #### [facility] [address] [place] [address] Dr. Jonelle Lechuga Monocytes/100 WBC (Bld) 7.9 % Normal 1.7-12.0 [facility] Comment on above: Performed By: #### C BC #### [facility] [address] [place] [address] Dr. Jonelle Lechuga NEUT # 5.1 103/ul Normal 1.4-6.5 [facility] Comment on above: Performed By: #### C BC #### [facility] [address] [place] [address] Dr. Jonelle Lechuga Neutrophils/100 WBC (Bld) 77.0 % Critically high 43.0-75.0 [facility] Comment on above: Performed By: #### C BC #### [facility] [address] [place] [address] Dr. Jonelle Lechuga Platelet mean volume (Bld) [Entitic vol] 9.8 fL Normal 9.5-13.5 [facility] Comment on above: Performed By: #### C BC #### [facility] [address] [place] [address] Dr. Jonelle Lechuga PLT 111 103/ul Critically low 150-450 [facility] Comment on above: Performed By: #### C BC #### [facility] [address] [address] [address] Jonelle Lechuga RBC 3.69 106/ul Critically low 4.70-6.10 [facility] Comment on above: Performed By: #### C BC #### [facility] [address] [address] [address] Jonelle Lechuga WBC 6.6 103/ul Normal 4.0-11.0 [facility] Comment on above: Performed By: #### C BC #### [facility] [address] [place] [address] Dr. Jonelle Lechuga GLYCOHEMOGLOBIN A1Con 2020 ADA RECOMMENDATION ADA THERAPEUTIC TARG ET 6.0 - 7.0 ACTION SUGGESTED > 7.0 Normal [facility] Comment on above: Performed By: #### A 1C ####[facility] [id number] [address]Dr. Jonelle Lechuga Glucose [Mass/Vol] 91 mg/dL Normal [facility] Comment on above: Performed By: #### A 1C ####[facility] [id number] [address]Dr. Jonelle Lechuga HbA1c (Bld) [Mass fraction] 4.8 % Normal <=6.0 [facility] Comment on above: Performed By: #### A 1C ####[facility] [id number] [address]Dr. Jonelel Lechuga LIPID PROFILEon 06-12-2021 CHOL-HDL RATIO NORM SEE BELOW Normal [facility] Comment on above: Result Comment: 3.3 - 4.4 LOW RISK 4.4 - 7.1 AVERAGE RISK 7.1 - 11.0 MODERATE RISK >11.0 HIGH RISK Performed By: #### C MP, URIC, LIPID, BNP #### [facility] [address] [place] [address] Dr. Jonelle Lechuga Cholesterol [Mass/Vol] 190 mg/dL Normal <=200 [facility] Comment on above: Performed By: #### C MP, URIC, LIPID, BNP #### [facility] [address] [address] [address] Jonelle Lechuga Cholesterol in HDL [Mass/Vol] 48 mg/dL Normal [facility] Comment on above: Performed By: #### C MP, URIC, LIPID, BNP #### [facility] [address] [address] [address] Jonelle Lechuga Cholesterol in LDL [Mass/Vol] 127.8 mg/dL Normal [facility] Comment on above: Performed By: #### C MP, URIC, LIPID, BNP #### [facility] [address] [address] [address] Jonelle Lechuga Cholesterol.total/Chol esterol in HDL [Mass ratio] 4.0 {ratio} Normal [facility] Comment on above: Performed By: #### C MP, URIC, LIPID, BNP #### [facility] [address] [address] [address] Jonelle Lechuga HDL NORMAL > or = 60 mg/dl - LO W CARDIOVASCULAR RISK <40 mg/dl - HIGH CARDIOVASCULAR RISK Normal [facility] Comment on above: Performed By: #### C MP, URIC, LIPID, BNP #### [facility] [address] [address] [address] Jonelle Lechuga LDL CALC NORMAL SEE BELOW Normal [facility] Comment on above: Result Comment: <100 mg/dl OPTIMAL 100 - 129 mg/dl NEAR OR ABOVE OPTIMAL 130 - 159 mg/dl BORDERLINE HIGH 160 - 189 mg/dl HIGH >190 mg/dl VERY HIGH Performed By: #### C MP, URIC, LIPID, BNP #### [facility] [address] [address] [address] Jonelle Lechuga Triglyceride [Mass/Vol] 71 mg/dL Normal <=150 [facility] Comment on above: Performed By: #### C MP, URIC, LIPID, BNP #### [facility] [address] [address] [address] Jonelle Lechuga VLDL CALC 14.2 mg/dL Normal [facility] Comment on above: Performed By: #### C MP, URIC, LIPID, BNP #### [facility] [address] [place] [address] Dr. Jonelle Lechuga PROF 14(COMP METB)on 021 Albumin [Mass/Vol] 3.4 g/dL Critically low 3.5-5.0 [facility] Comment on above: Performed By: #### C MP, URIC, LIPID, BNP #### [facility] [address] [place] [address] Dr. Jonelle Lechuga Albumin/Globulin [Mass ratio] 1.0 {ratio} Normal [facility] Comment on above: Performed By: #### C MP, URIC, LIPID, BNP #### [facility] [address] [place] [address] Dr. Jonelle Lechuga ALP [Catalytic activity/Vol] 77 U/L Normal 38-126 [facility] Comment on above: Performed By: #### C MP, URIC, LIPID, BNP #### [facility] [address] [place] [address] Dr. Jonelle Lechuga ALT [Catalytic activity/Vol] 16 U/L Critically low 21-72 [facility] Comment on above: Performed By: #### C MP, URIC, LIPID, BNP #### [facility] [address] [place] [address] Dr. Jonelle Lechuga Anion gap [Moles/Vol] 10.2 mmol/L Normal [facility] Comment on above: Performed By: #### C MP, URIC, LIPID, BNP #### [facility] [address] [place] [address] Dr. Jonelle Lechuga AST [Catalytic activity/Vol] 14 U/L Critically low 17-59 [facility] Comment on above: Performed By: #### C MP, URIC, LIPID, BNP #### [facility] [address] [place] [address] Dr. Jonelle Lechuga Bilirubin [Mass/Vol] 1.3 mg/dL Normal 0.2-1.3 [facility] Comment on above: Performed By: #### C MP, URIC, LIPID, BNP #### [facility] [address] [place] [address] Dr. Jonelle Lechuga Calcium [Mass/Vol] 9.1 mg/dL Normal 8.4-10.2 [facility] Comment on above: Performed By: #### C MP, URIC, LIPID, BNP #### [facility] [address] [place] [address] Dr. Jonelle Lechuga Chloride [Moles/Vol] 100 mmol/L Normal 98-107 [facility] Comment on above: Performed By: #### C MP, URIC, LIPID, BNP #### [facility] [address] [place] [address] Dr. Jonelle Lechuga CO2 [Moles/Vol] 31.8 mmol/L Critically high 22.0-30.0 [facility] Comment on above: Performed By: #### C MP, URIC, LIPID, BNP #### [facility] [address] [place] [address] Dr. Jonelle Lechuga Creatinine [Mass/Vol] 1.33 mg/dL Critically high 0.66-1.25 [facility] Comment on above: Performed By: #### C MP, URIC, LIPID, BNP #### [facility] [address] [place] [address] Dr. Jonelle Lechuga EGFR-AF IVORIAN >60 Normal >=60 [facility] Comment on above: Performed By: #### C MP, URIC, LIPID, BNP #### [facility] [address] [place] [address] Dr. Jonelle Lechuga EGFR-NON AF IVORIAN 52 mL/min/1.73m2 Critically low >=60 [facility] Comment on above: Performed By: #### C MP, URIC, LIPID, BNP #### [facility] [address] [place] [address] Dr. Jonelle Lechuga Globulin (S) [Mass/Vol] 3.5 g/dL Normal [facility] Comment on above: Performed By: #### C MP, URIC, LIPID, BNP #### [facility] [address] [place] [address] Dr. Jonelle Lechuga Glucose [Mass/Vol] 114 mg/dL Critically high 74-106 T [facility] Comment on above: Performed By: #### C MP, URIC, LIPID, BNP #### [facility] [address] [place] [address] Dr. Jonelle Lechuga Potassium [Moles/Vol] 4.0 mmol/L Normal 3.4-5.0 [facility] Comment on above: Performed By: #### C MP, URIC, LIPID, BNP #### [facility] [address] [place] [address] Dr. Jonelle Lechuga Protein [Mass/Vol] 6.9 g/dL Normal 6.1-8.2 [facility] Comment on above: Performed By: #### C MP, URIC, LIPID, BNP #### [facility] [address] [place] [address] Dr. Jonelle Lechuga Sodium [Moles/Vol] 138 mmol/L Normal 137-145 [facility] Comment on above: Performed By: #### C MP, URIC, LIPID, BNP #### [facility] [address] [place] [address] Dr. Jonelle Lechuga Urea nitrogen [Mass/Vol] 23.0 mg/dL Critically high 9.0-20.0 [facility] Comment on above: Performed By: #### C MP, URIC, LIPID, BNP #### [facility] [address] [place] [address] Dr. Jonelle Lechuga Urea nitrogen/Creatinine [Mass ratio] 17.3 mg/mg Normal [facility] Comment on above: Performed By: #### C MP, URIC, LIPID, BNP #### [facility] [address] [place] [address] Dr. Jonelle Lechuga URIC ACID SERUMon 06-12-2021 Urate [Mass/Vol] 3.8 mg/dL Normal 3.5-8.5 [facility] Comment on above: Performed By: #### C MP, URIC, LIPID, BNP #### [facility] [address] [place] [address] Dr. Jonelle Lechuga VITAMIN D 25 OHon 06-12-2021 VIT D 25-OH 30.8 ng/mL Normal [facility] Comment on above: Performed By: #### V ITAD, PSASC #### [facility] [address], [place] [address] Dr. Jonelle Lechuga VIT D RANGES SEE BELOW Normal [facility] Comment on above: Result Comment: <20 ng/mL Vit D deficient 20 - <30 ng/mL Vit D insufficient 30 - 100 ng/mL Vit D sufficient >100 ng/mL Potential Toxicity Performed By: #### V ITAD, PSASC #### [facility] [address], [place] [address] Dr. Jonelle Lechuga Tobacco Screening.on 021 Fall risk assessment a) No falls within the last year [facility] [employer] viola 250 DO Work Phone: Tobacco use status CPHS b) No [facility] Shanda Gamesy 250 DO Work Phone: Vital Signs Date Time Vital Sign Value Performing Clinician Facility 06-23-2023 13:40-0500 Blood Pressure Location YesVideo [facility] 06-23-2023 13:40-0500 Diastolic blood pressure 88 mm[Hg] [facility] 06-23-2023 13:40-0500 Heart rate 72 /min [facility] 06-23-2023 13:40-0500 Respiratory rate 16 /min [employer] [facility] 06-23-2023 13:40-0500 Systolic blood pressure 126 mm[Hg] [employer] [facility] 05-27-2023 05:00-0500 Body temperature 97.4 [degF] MD Real Dodd Work Phone: [facility] 05-27-2023 05:00-0500 Diastolic blood pressure 80 mm[Hg] MD Real Dodd Work Phone: [facility] 05-27-2023 05:00-0500 Heart rate 77 /min MD Real Dodd Work Phone: [facility] 05-27-2023 05:00-0500 Respiratory rate 20 /min MD Real Dodd Work Phone: [facility] 05-27-2023 05:00-0500 SaO2% (BldA) [Mass fraction] 95 % MD Real Dodd Work Phone: [facility] 05-27-2023 05:00-0500 Systolic blood pressure 129 mm[Hg] MD Real Dodd Work Phone: [facility] 05-26-2023 12:09-0500 Body height 177.8 cm MD Real Dodd Work Phone: [facility] 05-24-2023 06:00-0500 Body weight 131.3 kg MD Real Dodd Work Phone: [facility] 05-18-2023 11:26-0500 Body temperature 98 [degF] MD Real Dodd Work Phone: [facility] 05-18-2023 11:26-0500 Diastolic blood pressure 69 mm[Hg] MD Real Dodd Work Phone: [facility] 05-18-2023 11:26-0500 Heart rate 87 /min MD Real Dodd Work Phone: [facility] 05-18-2023 11:26-0500 Respiratory rate 12 /min MD Real Dodd Work Phone: [facility] 05-18-2023 11:26-0500 SaO2% (BldA) [Mass fraction] 96 % MD Real Dodd Work Phone: [facility] 05-18-2023 11:26-0500 Systolic blood pressure 116 mm[Hg] MD Real Dodd Work Phone: [facility] 05-18-2023 06:45-0500 Body weight 139.8 kg MD Rela Dodd Work Phone: [facility] 05-13-2023 10:45-0500 Body height 175.26 cm MD Real Dodd Work Phone: [facility] 05-13-2023 00:00-0500 Inhaled oxygen flow rate 1 L/min Real Ju Work Phone: [facility] 05-12-2023 09:07-0500 Body mass index (BMI) [Ratio] 44.9 kg/m2 Real Khaiy Work Phone: [facility] 02-03-2023 15:51-0400 Body height 177.8 cm Real Martínez Hoy Work Phone: [facility] 320 DO Work Phone: 02-03-2023 15:51-0400 Body mass index (BMI) [Ratio] 43.22 kg/m2 Real M Hoy Work Phone: [facility] 320 DO Work Phone: 02-03-2023 15:51-0400 Body surface area Derived from formula 2.48 m2 Real Martínez Hoy Work Phone: [facility] 320 DO Work Phone: 02-03-2023 15:51-0400 Body weight 136.62 kg Real Martínez Hoy Work Phone: [facility] 320 DO Work Phone: 02-03-2023 15:51-0400 Diastolic blood pressure 74 mm[Hg] Real Martínez Hoy Work Phone: [facility] 320 DO Work Phone: 02-03-2023 15:51-0400 Heart rate 78 /min Real M Hoy Work Phone: [facility] 320 DO Work Phone: 02-03-2023 15:51-0400 Systolic blood pressure 132 mm[Hg] Real M Hoy Work Phone: [facility] 320 DO Work Phone: 09-08-2022 10:00-0500 55 1 Real M Hoy Work Phone: [facility] [place] Work Phone: Comment on above: [id number] 08-05-2022 13:18-0500 Body height 177.8 cm Real M Hoy Work Phone: [facility] 250 DO Work Phone: 08-05-2022 13:18-0500 Body mass index (BMI) [Ratio] 42.62 kg/m2 Real M Hoy Work Phone: [facility] 250 DO Work Phone: 08-05-2022 13:18-0500 Body surface area Derived from formula 2.47 m2 Real M Hoy Work Phone: [facility] 250 DO Work Phone: 08-05-2022 13:18-0500 Body weight 134.72 kg Real Martínez Hoy Work Phone: [facility] 250 DO Work Phone: 08-05-2022 13:18-0500 Diastolic blood pressure 78 mm[Hg] Real M Hoy Work Phone: [facility] 250 DO Work Phone: 08-05-2022 13:18-0500 Heart rate 81 /min Real Martínez Hoy Work Phone: [facility] 250 DO Work Phone: 08-05-2022 13:18-0500 Systolic blood pressure 132 mm[Hg] Real M Hoy Work Phone: [facility] 250 DO Work Phone: 04-28-2022 05:00-0400 Body temperature 98.3 [degF] Real Hoy Work Phone: [facility] 04-28-2022 05:00-0400 Diastolic blood pressure 71 mm[Hg] MD Real Dodd Work Phone: [facility] 04-28-2022 05:00-0400 Heart rate 97 /min MD Real Dodd Work Phone: [facility] 04-28-2022 05:00-0400 Respiratory rate 16 /min MD Real Dodd Work Phone: [facility] 04-28-2022 05:00-0400 SaO2% (BldA) [Mass fraction] 96 % MD Real Dodd Work Phone: [facility] 04-28-2022 05:00-0400 Systolic blood pressure 130 mm[Hg] MD Real Dodd Work Phone: [facility] 04-27-2022 04:18-0400 Body weight 130.5 kg MD Real Dodd Work Phone: [facility] 04-23-2022 07:55-0400 Body height 177.8 cm MD Real Dodd Work Phone: [facility] 04-15-2022 16:00-0400 Inhaled oxygen flow rate 4 L/min MD Real Dodd Work Phone: [facility] 04-15-2022 15:39-0400 Body temperature 97.7 [degF] MD Real Dodd Work Phone: [facility] 04-15-2022 15:39-0400 Diastolic blood pressure 59 mm[Hg] MD Real Dodd Work Phone: [facility] 04-15-2022 15:39-0400 Heart rate 66 /min MD Real Dodd Work Phone: [facility] 04-15-2022 15:39-0400 Respiratory rate 16 /min MD Real Dodd Work Phone: [facility] 04-15-2022 15:39-0400 SaO2% (BldA) [Mass fraction] 97 % MD Real Dodd Work Phone: [facility] 04-15-2022 15:39-0400 Systolic blood pressure 109 mm[Hg] MD Noble Khaielham Work Phone: [facility] 04-15-2022 11:30-0400 Body height 172.72 cm MD Real Dodd Work Phone: [facility] 04-15-2022 06:00-0400 Body weight 137.6 kg MD Real Dodd Work Phone: [facility] 04-14-2022 11:31-0400 Body mass index (BMI) [Ratio] 45.6 kg/m2 MD Real Dodd Work Phone: [facility] 01-31-2022 10:15-0400 Body height 177.8 cm uiuisle II Other [facility] Other 01-31-2022 10:15-0400 Body mass index (BMI) [Ratio] 42.47 kg/m2 Andrea Jeferson II Other [facility] Other 01-31-2022 10:15-0400 Body weight 134.27 kg Andrea Coahoma II Other [facility] Other 01-23-2022 13:10-0400 Body height 177.8 cm Real Soliz Hoy Work Phone: [facility] 250 DO Work Phone: 01-23-2022 13:10-0400 Body mass index (BMI) [Ratio] 42.76 kg/m2 Real M Hoy Work Phone: [facility] 250 DO Work Phone: 01-23-2022 13:10-0400 Body surface area Derived from formula 2.47 m2 Real M Hoy Work Phone: [facility] 250 DO Work Phone: 01-23-2022 13:10-0400 Body weight 135.17 kg Real M Hoy Work Phone: [facility] 250 DO Work Phone: 01-23-2022 13:10-0400 Diastolic blood pressure 68 mm[Hg] Real M Hoy Work Phone: [facility] 250 DO Work Phone: 01-23-2022 13:10-0400 Heart rate 72 /min Real M Hoy Work Phone: [facility] 250 DO Work Phone: 01-23-2022 13:10-0400 Systolic blood pressure 114 mm[Hg] Real M Hoy Work Phone: [facility] 250 DO Work Phone: 11-29-2021 11:30-0400 Body height 177.8 cm Dashbid II Other [facility] Other 11-29-2021 11:30-0400 Body mass index (BMI) [Ratio] 41.61 kg/m2 Unsilole II Other [facility] Other 11-29-2021 11:30-0400 Body weight 131.54 kg Andrea Coahoma II Other [facility] Other 09-17-2021 13:08-0400 Body height 177.8 cm Real M Hoy Work Phone: [facility] 250 DO Work Phone: 09-17-2021 13:08-0400 Body mass index (BMI) [Ratio] 43.05 kg/m2 Real M Hoy Work Phone: [facility] 250 DO Work Phone: 09-17-2021 13:08-0400 Body surface area Derived from formula 2.48 m2 Real M Hoy Work Phone: [facility] 250 DO Work Phone: 09-17-2021 13:08-0400 Body weight 136.08 kg Real M Hoy Work Phone: [facility] 250 DO Work Phone: 09-17-2021 13:08-0400 Diastolic blood pressure 84 mm[Hg] Real M Hoy Work Phone: [facility] 250 DO Work Phone: 09-17-2021 13:08-0400 Heart rate 66 /min Real M Hoy Work Phone: [facility] 250 DO Work Phone: 09-17-2021 13:08-0400 Systolic blood pressure 130 mm[Hg] Real M Hoy Work Phone: [facility] 250 DO Work Phone: 05-15-2021 11:06-0500 Body height 177.8 cm Real M Hoy Work Phone: [facility] 250 DO Work Phone: 05-15-2021 11:06-0500 Body mass index (BMI) [Ratio] 43.05 kg/m2 Real M Hoy Work Phone: [facility] 250 DO Work Phone: 05-15-2021 11:06-0500 Body surface area Derived from formula 2.48 m2 Real M Hoy Work Phone: [facility] 250 DO Work Phone: 05-15-2021 11:06-0500 Body weight 136.08 kg Real M Hoy Work Phone: [facility] 250 DO Work Phone: 05-15-2021 11:06-0500 Diastolic blood pressure 60 mm[Hg] Real Soliz Hoy Work Phone: [facility] 250 DO Work Phone: 05-15-2021 11:06-0500 Heart rate 50 /min Real Soliz Hoy Work Phone: [facility] 250 DO Work Phone: 05-15-2021 11:06-0500 Systolic blood pressure 127 mm[Hg] Real M Hoy Work Phone: [facility] 250 DO Work Phone: Encounters Encounter Date Encounter Type Care Provider Facility Start: 08-18-2023 End: 08-18-2023 ambulatory [facility] Ambulatory Start: 07-22-2023 ambulatory John R NILL Facility : [place] Start: 07-22-2023 End: 07-22-2023 Patient encounter procedure John R NILL General Surgery N[facility] [place] Start: 07-14-2023 End: 07-15-2023 ambulatory John R NILL Facility: [facility] Start: 07-14-2023 End: 07-14-2023 Patient encounter procedure John R NILL General Surgery N[facility] [place] Start: 07-07-2023 End: 07-08-2023 ambulatory John R NILL Facility: [facility] Start: 07-03-2023 End: 07-03-2023 ambulatory Andrea Govea II Facility:[facility] Start: 07-03-2023 End: 07-03-2023 ambulatory MD Real Dodd Work Phone: [facility] Work Phone: Start: 07-03-2023 End: 07-03-2023 Discharged Recurring MD Real Dodd Work Phone: [facility]-Physical Therapy [place] Start: 06-23-2023 End: 06-24-2023 ambulatory John BARTLETT Facility:[facility] Start: 06-23-2023 End: 06-23-2023 Patient encounter procedure John BARTLETT General Surgery [facility] [place] Start: 06-17-2023 End: 06-17-2023 ambulatory JANES LEON Not Available Start: 06-08-2023 ambulatory John BARTLETT Facility:[facility] Start: 05-27-2023 End: 05-27-2023 ambulatory Andrea Govea II Other [facility] Other Start: 05-27-2023 Postop follow up vis it related to original px Andrea Govea II [facility] Start: 05-18-2023 End: 05-27-2023 Evaluation and management of inpatient Basilia Adams Facility:[facility] Start: 05-18-2023 End: 05-27-2023 Evaluation and management of inpatient MD Real Dodd Work Phone: [facility] Work Phone: Start: 05-12-2023 End: 05-18-2023 ambulatory Andrea Govea II Facility:[facility] Start: 05-12-2023 End: 05-18-2023 Admission to same day surgery center MD Real Dodd Work Phone: [facility]-Surgery [facility] [place] Start: 04-29-2023 End: 04-29-2023 ambulatory Andrea Govea II Other [facility] Other Start: 04-29-2023 Patient encounter procedure Andrea Govea II [facility] Start: 04-28-2023 End: 04-28-2023 ambulatory Andrea Govea II Facility:[facility] Start: 04-28-2023 End: 04-28-2023 ambulatory MD Real Dodd Work Phone: [facility] Work Phone: Start: 04-28-2023 End: 04-28-2023 Patient encounter procedure MD Real Dodd Work Phone: [facility] Work Phone: Start: 04-01-2023 End: 04-01-2023 ambulatory Andrea Govea II Facility:[facility] Start: 04-01-2023 End: 04-01-2023 ambulatory MD Real Dodd Work Phone: [facility] Work Phone: Start: 04-01-2023 End: 04-01-2023 Patient encounter procedure MD Real Dodd Work Phone: [facility] Start: 04-01-2023 End: 04-01-2023 ambulatory Andrea Govea II Facility:[facility] Start: 04-01-2023 End: 04-01-2023 ambulatory MD Real Dodd Work Phone: [facility] Work Phone: Start: 04-01-2023 End: 04-01-2023 Patient encounter procedure MD Real Dodd Work Phone: [facility] Start: 02-03-2023 Office outpatient visit 25 minutes Real Dodd Work Phone: [facility] 320 DO Work Phone: Start: 02-03-[address] Real Dodd Facility: Start: 01-22-2023 Rx Renewal Real Dodd Work Phone: [facility] 250 DO Work Phone: Start: 09-09-[address] Real Dodd Facility:[id number] Start: 09-08-2022 Patient encounter procedure Real Dodd Work Phone: [facility] [facility] [place] Work Phone: Start: 09-08-[address] Jammie Velasquez Facility:[id number] Start: 08-05-2022 Office outpatient visit 25 minutes Real Dodd Work Phone: [facility] 250 DO Work Phone: Start: 08-05-[address] Jammie Velasquez Facility:[id number] Start: 06-23-2022 Rx Renewal Real Soliz Hoelham Work Phone: [facility] 250 DO Work Phone: Start: 05-26-2022 Rx Renewal Real Soliz Hoelham Work Phone: [facility] 250 DO Work Phone: Start: 05-06-2022 (Post-Op) Post-Op Andrea Jeferson II [facility] Start: 05-06-2022 End: 05-06-2022 ambulatory Andrea Coahoma II Other [facility] Other Start: 04-28-2022 End: 04-28-2022 ambulatory Andrea Jeferson II Other [facility] Other Start: 04-28-2022 Telephone encounter Andrea Jeferson II [facility] Start: 04-15-2022 End: 04-28-2022 Evaluation and management of inpatient MD Real Dodd Work Phone: [facility] Start: 04-14-2022 End: 04-15-2022 Admission to same day surgery center MD Real Dodd Work Phone: [facility]-Surgery Center [place] Start: 04-14-2022 End: 04-15-2022 ambulatory MD Real Dodd Work Phone: [facility] Work Phone: Start: 04-10-2022 End: 04-10-2022 ambulatory MD Real Dodd Work Phone: [facility] Work Phone: Start: 04-10-2022 End: 04-10-2022 Patient encounter procedure MD Real Dodd Work Phone: [facility]-Pre-Surgical Testing Start: 04-08-2022 End: 04-09-[address] REAL DODD Facility: Start: 04-04-2022 (Prolonged) Prolonge d Services Andrea Coahoma II [facility] Start: 04-04-2022 End: 04-04-2022 ambulatory Andrea Coahoma II Other [facility] Other Start: 03-31-2022 End: 03-31-2022 Patient encounter procedure MD Real Dodd Work Phone: [facility]-Pre-Surgical Testing Start: 03-31-2022 Registered Recurring MD Kinjal Dodd Work Phone: [facility]-Physical Therapy [place] Start: 02-07-2022 End: 02-07-2022 ambulatory Andrea Coahoma II Other [facility] Other Start: 02-07-2022 Telephone encounter Andrea Coahoma II [facility] Start: 02-04-2022 End: 02-04-2022 Patient encounter procedure MD Real Dodd Work Phone: [facility] Start: 01-31-2022 End: 01-31-2022 ambulatory Andrea Coahoma II Other [facility] Other Start: 01-31-2022 Office outpatient visit 40 minutes Andrea Coahoma II [facility] Start: 01-31-2022 End: 01-31-2022 Discharged Recurring MD Real Dodd Work Phone: [facility] [address] Start: 01-23-2022 Office outpatient visit 25 minutes Real M Hoy Work Phone: [facility] 250 DO Work Phone: Start: 11-29-2021 End: 11-29-2021 ambulatory Andrea Lewiskimberly OROZCO Other [facility] [place] Other Start: 11-29-2021 Office outpatient ne w 45 minutes Andrea Govea II [facility] Start: 11-29-2021 Rx Renewal Real M Hoy Work Phone: [facility] 250 DO Work Phone: Start: 09-17-2021 Office outpatient visit 25 minutes Real M Hoy Work Phone: [facility] DO Work Phone: Start: 07-22-2021 End: 07-23-[address] REAL DODD Facility:[facility]1 Start: 07-12-2021 End: 07-13-[address] REAL DODD Facility:[facility] Start: 07-01-2021 End: 07-01-[address] REAL DODD Facility:[facility] Start: 06-12-2021 End: 06-13-[address] REAL DODD Facility:[facility] Start: 05-15-2021 Office outpatient visit 10 minutes Real M Hoy Work Phone: [facility] 250 DO Work Phone: Procedures Date Procedure Procedure Detail Performing Clinician Start: 08-18-2023 ECG 12-LEAD MOURHAF TR ABOULSSI Start: 07-14-2023 Excision of hemangioma John BARTLETT Comment on above: left arm Start: 05-25-2023 Duplex scan of lower limb veins MD Real Dodd Work Phone: Start: 05-12-2023 Total replacement of left knee joint MD Real Dodd Work Phone: Start: 11-07-2023 X-ray of left knee MD Kelley Dodd Work Phone: Start: 04-28-2023 Antibody screen Andrea Govea II Comment on above: Order Comment: Reaso n for Exam Age-related osteoporosis without current pathological fractu FASTING. JKW Result Comment: PERF ORMED BY: [facility] [address] PATHOLOGIST STRATEGIC PLANNING ANALYST ISMAEL HERNANDEZ M.D. Start: 04-01-2023 Methicillin resistan t Staphylococcus aureus culture MD Real Dodd Work Phone: Start: 04-01-2023 Radiologic examinati on of knee MD Real Dodd Work Phone: Start: 04-01-2023 X-ray of right knee MD Real Dodd Work Phone: Start: 04-23-2022 Duplex scan of lower limb veins MD Real Dodd Work Phone: Start: 04-17-2022 Duplex scan of lower limb veins MD Real Dodd Work Phone: Start: 04-14-2022 Total replacement of right knee joint MD Real Dodd Work Phone: Start: 04-14-2022 X-ray of right knee MD Real Dodd Work Phone: Start: 06-12-[address] KINJAL DODD Comment on above: Performed By: #### V ITAD, PSASC #### [facility] [address] [place] [address] Dr. Jonelle Lechuga Arthroplasty of knee Real Dodd Work Phone: Cardioversion Real Dodd Work Phone: Colonoscopy Real Soliz Ju Work Phone: Comment on above: [id number]; Excision of colon Real Dodd Work Phone: Comment on above: partial; Hernia repair Real Dodd Work Phone: History of lumbar laminectomy John BARTLETT Methicillin resistan t Staphylococcus aureus culture MD Real Dodd Work Phone: Partial resection of colon M aleksandar BARTLETT Repair of joint of l eft knee John BARTLETT Repair of joint of r ight knee John BARTLETT Plan of Treatment Date Care Activity Detail Author Start: 08-18-2023 FUV, Provider: Jammie Velasquez, Status: Pen, Time: 2:30 PM FUV, Provider: Jammie Velasquez, Status: Pen, Time: 2:30 PM [facility] Work [facility]: Start: 05-27-2023 [facility] Start: 05-18-2023 Hospital admission [facility] Start: 05-18-2023 Referral to clinical edge polisher [facility] Start: 05-18-2023 [facility] Start: 05-12-2023 Referral to clinical edge polisher [facility] Start: 05-12-2023 Referral to rehabili tation physician [facility] Start: 05-12-2023 Hospital admission [facility] Start: 04-28-2023 [facility] Start: 04-01-2023 MRSA Culture MRSA Culture [facility] Start: 02-03-2023 FUV, Provider: Jammie Velasquez, Status: Pen, Time: 3:30 PM FUV, Provider: Jammie Velasquez, Status: Pen, Time: 3:30 PM [facility]: Start: 09-09-2022 REST ONLY, Provider: DANDY HHVI NUCLEAR 01,[id number], Status: Pen, Time: 10:00 AM REST ONLY, Provider: DANDY HHVI NUCLEAR 01,[id number], Status: Pen, Time: 10:00 AM [facility] Work [facility]: Start: 09-08-2022 STRESSNUC2, Provider : DANDY HHVI NUCLEAR 01,[id number], Status: Pen, Time: 10:00 AM STRESSNUC2, Provider: DANDY HARTMAN NUCLEAR 01,[id number], Status: Pen, Time: 10:00 AM [facility] 250 DO Work Phone: Start: 08-05-2022 FUV, Provider: Jammie Velasquez, Status: Pen, Time: 1:00 PM FUV, Provider: Jammie Velasquez, Status: Pen, Time: 1:00 PM [facility] 250 DO Work Phone: Start: 04-28-2022 [facility] Start: 04-15-2022 Hospital admission [facility] Start: 04-15-2022 Referral to clinical edge polisher [facility] Start: 04-15-2022 [facility] Start: 04-14-2022 Referral to clinical edge polisher [facility] Start: 04-14-2022 Hospital admission [facility] Start: 01-09-2022 FUV, Provider: Jammie Velasquez, Status: Pen, Time: 1:50 PM FUV, Provider: Jammie Velasquez, Status: Pen, Time: 1:50 PM [facility] 250 DO Work Phone: Start: 01-09-2022 FUV, Provider: Jammie Velasquez, Status: Pen, Time: 9:20 AM FUV, Provider: Jammie Velasquez, Status: Pen, Time: 9:20 AM [facility] 250 DO Work Phone: Start: 09-17-2021 FUV, Provider: Jammie Velasquez, Status: Pen, Time: 1:10 PM FUV, Provider: Jammie Velasquez, Status: Pen, Time: 1:10 PM [facility] 250 DO Work Phone: Cotinine [Mass/volum e] in Serum or Plasma [facility] Glucose measurement estimated from glycated hemoglobin [facility] Methicillin resistan t Staphylococcus aureus [Presence] in Unspecified specimen by Organism specific culture [facility] Nicotine [Mass/volum e] in Serum or Plasma [facility] Patient Education [facility] Work Phone: Patient referral [facility] Work Phone: [facility] Immunizations Immunization Date Immunization Notes Care Provider Fa raffi 04-09-2023 influenza virus vacc ine, unspecified formulation John BARTLETT [facility] 04-10-2022 Fluzone High-Dose Quadrivalent 0.7 ML Intramuscular Suspension Prefilled Syringe Real Dodd Work Phone: [facility] 250 DO Work Phone: 04-10-2022 Pfizer COVID-19 Vac Bivalent 30 MCG/0.3ML Intramuscular Suspension Real Dodd Work Phone: [facility] 03-25-2022 influenza, seasonal, injectable Real Dodd Work Phone: [facility] 250 DO Work Phone: Comment on above: Series: 01-10-2022 Comirnaty 30 MCG/0.3 ML Intramuscular Suspension Real Dodd Work Phone: [facility] 250 DO Work Phone: 01-10-2022 COVID-19 Warren Hernandez (Pfizer) MD Real Dodd Work Phone: [facility] 01-10-2022 SARS-CoV-2 mRNA (ajbahoduptt-gnpi-grafih e) vaccine John BARTLETT [facility] 03-30-2021 Fluzone High-Dose Quadrivalent 0.7 ML Intramuscular Suspension Prefilled Syringe Real Dodd Work Phone: [facility] 250 DO Work Phone: 03-30-2021 Pfizer-BioNTech COVI D-19 Vacc 30 MCG/0.3ML Intramuscular Suspension Real Dodd Work Phone: [facility] Comment on above: Result Comment: 2022: [id number] 09-22-2020 zoster vaccine recombinant Real Ridleyy Work Phone: [facility] [employer] [place] 250 DO Work Phone: 08-24-2020 COVID-19 Vaccine Pfi zer - Documentation Purposes Only Andrea Govea II Other [facility] Comment on above: Result Comment: 2022: [id number] 08-17-2020 Pfizer-BioNTech COVI D-19 Vacc 30 MCG/0.3ML Intramuscular Suspension Real Dodd Work Phone: [facility] 08-03-2020 COVID-19 Warren Hernandez (Pfizer) Real Hoy Work Phone: [facility] Comment on above: Result Comment: 2022: [id number] 07-27-2020 Pfizer-BioNTech COVI D-19 Vacc 30 MCG/0.3ML Intramuscular Suspension Real Dodd Work Phone: [facility] 06-16-2020 zoster vaccine recombinant Real Soliz Hoy Work Phone: [facility] Work Phone: 05-17-2020 zoster vaccine recombinant Real Soliz Hoelham Work Phone: [facility] 250 DO Work Phone: 03-12-2020 Fluzone High-Dose Quadrivalent 0.7 ML Intramuscular Suspension Prefilled Syringe Real Dodd Work Phone: [facility] 250 DO Work Phone: 03-20-2019 influenza, high dose seasonal, preservative-free Real Soliz Hoy [facility] Phone[facility] Work Phone: 02-25-2018 influenza, high dose seasonal, preservative-free Real Soliz Hoy [facility] Work Phone: 02-25-2018 pneumococcal polysaccharide vaccine, 23 valent Real M Hoy Work Phone: [facility] 250 DO Work Phone: 04-17-2017 influenza, high dose seasonal, preservative-free Real M Hoy Work Phone: [facility] 250 DO Work Phone: 07-06-2016 pneumococcal conjuga te vaccine, 13 valent Real Soliz Hoy Work Phone: [facility] 250 DO Work Phone: 04-05-2015 influenza virus vacc ine, unspecified formulation Real Martínez Hoy Work Phone: [facility] 250 DO Work Phone: 03-26-2013 zoster vaccine, live Real Soliz Hoy Work Phone: [facility] 250 DO Work Phone: Payers Date Payer Category Payer Medicare [id number] 2023 Self-pay [id number] 1960 Medicare [id number] 2.1 [id number] 1959 Unknown [id number] 2.16 .[id number] 1945 Unknown [id number] 2.16.84 0.1.916670.3.579.2.593 1944 Unknown [id number] 2.16.84 0.1.827744.3.579.2.593 1944 Unknown [id number] 2.16.84 0.1.783434.3.579.2.593 1944 Unknown [id number] 2.16.84 0.1.272003.3.579.2.593 1944 Unknown [id number] 2.16.84 0.1.333152.3.579.2.593 1944 Unknown [id number] 2.16.8 40.1.761786.3.579.2.1068 1944 Unknown [id number] 2.16.8 40.1.681431.3.579.2.1068 1944 Unknown [id number] 2.16.8 40.1.445848.3.579.2.1068 1944 Unknown [id number] 2.16. 840.1.488564.3.579.2.356 1944 Unknown [id number] 2.16. 840.1.733012.3.579.2.356 1944 Unknown [id number] 2.16.840 .1.865898.3.579.2.1259 1944 Unknown [id number] 2.16.8 40.1.730393.3.579.2.727 1944 Unknown [id number] 2.16.8 40.1.316351.3.579.2.727 1944 Unknown [id number] 2.16.8 40.1.297564.3.579.2.727 1944 Unknown [id number] 2.16.8 40.1.948242.3.579.2.727 1944 Unknown [id number] 2.16.8 40.1.868411.3.579.2.1244 Unknown Unknown [id number] 2.16.8 40.1.269631.3.579.2.531 Unknown [id number] 2.16.8 40.1.652807.3.579.2.531 Unknown [id number] 2.16.8 40.1.841912.3.579.2.531 Unknown [id number] 2.16.8 40.1.492183.3.579.2.531 Unknown [id number] 2.16.8 40.1.036675.3.579.2.531 Unknown [id number] 2.16.8 40.1.947761.3.579.2.531 Social History Date Type Detail Facility Consumes alcohol occasionally Consumes alcohol occasionally [facility] 250 DO Work Phone: Comment on above: 1 cup of coffee, sod a occasionally; quit 2000, 1/2 PPD; Start: 07-06-1979 End: 07-06-2001 Sex Assigned At [facility] Start: 1945 Sex Assigned At Male F [facility] Start: 03-31-2022 End: 06-23-2023 Tobacco smoking status [facility] Ex-smoker (finding) [facility] Start: 05-19-2023 Tobacco smoking stat [facility] Never smoked tobacco (finding) [facility] Tobacco smoking status Never Gener al Surgery [place] [facility] Equipment Procedure Code Equipment Code Equipment Origin al Text Equipment Identifier Dates Arthroplasty, knee, total, minimally invasive Orthopaedic cement, non-medicated [id number] FDA Start: 04-14-2022 Arthroplasty, knee, total, minimally invasive Knee femur stem prosthesis ()[id number] FDA Start: 04-14-2022 Arthroplasty, knee, total, minimally invasive Uncoated knee femur prosthesis ()[id number] FDA Start: 04-14-2022 Arthroplasty, knee, total, minimally invasive Tibial insert ()[id number] FDA Start: 04-14-2022 Arthroplasty, knee, total, minimally invasive Polyethylene patella prosthesis ()[id number] FDA Start: 04-14-2022 Arthroplasty, knee, total, minimally invasive Polymer orthopaedic cement restrictor, non-bioabsorbable, sterile ()[id number] FDA Start: 04-14-2022 Arthroplasty, knee, total, minimally invasive Uncoated knee tibia prosthesis, metallic ()[id number] FDA Start: 04-14-2022 Arthroplasty, knee, total, minimally invasive Orthopaedic cement, non-medicated ()[id number] FDA Start: 05-12-2023 Arthroplasty, knee, total, minimally invasive Uncoated knee femur prosthesis ()[id number] FDA Start: 05-12-2023 Arthroplasty, knee, total, minimally invasive Tibial insert ()[id number] FDA Start: 05-12-2023 Arthroplasty, knee, total, minimally invasive Polyethylene patella prosthesis ()[id number] FDA Start: 05-12-2023 Arthroplasty, knee, total, minimally invasive Knee stem ()[id number] FDA Start: 05-12-2023 Arthroplasty, knee, total, minimally invasive Uncoated knee tibia prosthesis, metallic ()[id number] FDA Start: 05-12-2023 Goals Date Patient Goal Desired Activity /State Functional Status Date Assessment Result Facility 06-23-2023 Functional Status N/A [facility] 05-27-2023 Functional status Patient is Pro gressing Toward Baseline [facility] Work Phone: 05-18-2023 Functional status Patient Not at Baseline [facility] Work Phone: 04-28-2022 Functional status Patient is Pro gressing Toward Baseline [facility] Work Phone: 04-15-2022 Functional status Patient at Baseline [facility] Work Phone: Mental Status Date Assessment Result Facility 05-27-2023 Cognitive function Cognitive Sta tus Patient at Baseline [facility] Work Phone: 05-18-2023 Cognitive function Cognitive Sta tus Patient at Baseline [facility] Work Phone: 04-28-2022 Cognitive function Cognitive Sta tus Patient at Baseline [facility] Work Phone: 04-15-2022 Cognitive function Cognitive Sta tus Patient at Baseline [facility] Work Phone: Clinical Notes 07-12-2021 to 06-23-2023 Note Date & Type Note Facility 06-23-2023 Note Chief Complaint consultation for skin lesion on neck and cyst on arm HPI Staff 77 year old male presents on consultation from Dr. Dodd for skin lesion left neck and cyst left arm. Reports cyst has been present for several years. Denies change since first noted. Denies this being tender or sore. Never been red or drained. Skin lesion to neck has been present for several months. Reports this has been decreasing in size. Denies this being tender or sore. Never been red or drained. Patient on Eliquis. History of Present Illness 77 yo male with h/o htn, atrial fibrillation, on Eliquis, PVD, TATIANA, h/o colon cancer, referred for cyst left upper arm and enlarging skin lesion left neck; no scab or bleeding; no previous infection; Review of Systems PHQ Score Initial Depression Screen Score: 0 SCORE ROS - Provider Constitutional: no fever, no sweats, no weight loss. Eyes: no glasses, no blurred vision, no visual loss. ENMT: no dentures, no hoarseness, no swallowing difficulties, no hearing loss, no ear infection(s), no nose bleeds. Cardiovascular: normal blood pressure, no chest pain, regular heartbeat, no heart murmur. Respiratory: no shortness of breath, no cough, no asthma, no wheezing. Gastrointestinal: no nausea, no vomiting, no diarrhea, no constipation, no blood in stool, no change in bowel habits, no abdominal pain, no hepatitis. Genitourinary: no kidney stones, no urine infection, no dysuria. Musculoskeletal: no pain, no weakness. Skin: no changing moles, no rash, yes skin lumps. Neurologic: no seizures, no epilepsy, no headache. Psychiatric: no emotional or psychiatric problem. Heme/Lymph: no bleeding problems, no anemia, no blood clots, no transfusions. Allergy/Immunologic: no swollen lymph nodes/glands, no IV drug abuse. Other: Additional ROS info: Except as noted in the above Review of Systems and in the History of Present Illness, all other systems have been reviewed and are negative or noncontributory. Physical Exam Vitals & Measurements HR: 72(Peripheral) RR: 16 BP: 126/88 HT: 70 in HT: 177.8 cm WT: 134 kg WT: 294.8 lb BMI: 42.39 HEENT: normal conjunctiva, sclera clear, no scleral icterus, EOM intact, PERRLA, oral mucosa moist without lesions. Neck: trachea midline, no mass, symmetric, no thyromegaly or nodules, no adenopathy; 7 mm raised; scarred skin tag, no ulceration Lymphatic: no cervical adenopathy, no axillary adenopathy, no inguinal adenopathy. Musculoskeletal: normal gait, digits and nails without infection, nodes, cyanosis, clubbing. Skin: no rashes, no lesions, no ulcers, left upper arm with 1.5 cm round, mobile subcutaneous nodule, nontender, no overlying skin changes or drainage Psychiatric/Neuro: oriented to time, place, person, judgement normal, affect appropriate for age, insight intact, no focal deficits. Tests: , review of old records completed , Discussed surgical options, risks, and possible complications with patient. Assessment/Plan 1. Epidermal cyst (L72.0: Epidermal cyst) plan excisional biopsy under local anesthesia in the office, informed consent obtained; hold Eliquis 2 days prior to procedure. 2. Inflamed skin tag (L91.8: Other hypertrophic disorders of the skin) see # 1 Follow-up No qualifying data available Problem List/Past Medical History Ongoing Acquired lymphedema Atherosclerotic PVD with intermittent claudication Atrial fibrillation BMI 40.0-44.9, adult Chronic constipation Epidermal cyst Gout History of colon cancer HTN (hypertension) Inflamed skin tag Morbid obesity TATIANA (obstructive sleep apnea) Historical No qualifying data Procedure/Surgical History Arthroplasty of left knee, Arthroplasty of right knee, History of lumbar laminectomy, Partial resection of colon. Medications allopurinol 300 mg Tab, 300 mg= 1 tab(s), Oral, Daily carvedilol 25 mg Tab, 25 mg= 1 tab(s), Oral, BID Colace 100 mg Cap, 100 mg= 1 cap(s), Oral, Daily, PRN Eliquis 5 mg oral tablet, 5 mg= 1 tab(s), Oral, BID ferrous sulfate 325 mg oral enteric coated tablet, 325 mg= 1 tab(s), Oral, Daily folic acid 1 mg Tab, 1 mg= 1 tab(s), Oral, Daily Lasix 40 mg Tab, 40 mg= 1 tab(s), Oral, Daily melatonin 5 mg oral tablet, 5 mg= 1 tab(s), Oral, Once a day (at bedtime), PRN MiraLax, 17 gm, Oral, Daily omeprazole 20 mg Cap-DR, 20 mg= 1 cap(s), Oral, Daily Vitamin B12 1000 mcg Tab, 1000 mcg= 1 tab(s), Oral, Daily Vitamin D3 1000 intl units (25 mcg) Tab, 25 mcg= 1 tab(s), Oral, Daily Allergies Kenalog (Anaphylaxis) Social History Alcohol Current, Beer, Daily, 06/23/2023 Substance Abuse - Denies Substance Abuse, 06/23/2023 Tobacco Former smoker, quit more than 30 days ago Tobacco Use:. Never Smokeless Tobacco Use:. Cigarettes, 0.5 per day. Started age 18.0 Years. Stopped age 57 Years., 06/23/2023 Family History Cardiac arrest: Mother and Father. Immunizations Vaccine Date Status Comments influenza virus vaccine, inactivated 04/09/2023 Recorded (more content not included)... [facility] Comment on above: Result Comment: Elec tronically Signed By: TRI VICKERS, John Mendoza\pop\Date and Time Signed: 06/23/23 14:12 EST 05-27-2023 Evaluation note Encounter Date Diagnosis Assessment Notes May, Status post left knee replacement (ICD-10 - Z96.652) May, Aftercare following joint replacement surgery (ICD-10 - Z47.1) May, Presence of left artificial knee joint (ICD-10 - Z96.652) May, Other [facility] at [facility] [place] on 05/12/2023 Sutures removed today. Steri-Strips applied. Patient may continue activities as tolerated. They are weightbearing as tolerated to the operative extremity and will begin outpatient PT. Patient instructed to continue weaning off narcotic pain medication. They will continue to take Celebrex and Tylenol as needed for assistance with swelling and pain associated with the operative extremity. Patient to continue their home Eliquis DVT prophylaxis as previously instructed. We talked about his KARL hose on the operative extremity but he already has the vacuum pumps for his chronic lymphedema at home. I think it is fine for him to use those routinely now so that he can get his typical compression stockings back on. Follow-up in 4 weeks for repeat examination and 3 view x-rays of the left knee. [facility] Other 11-21-2023 Progress note Author Bernadette Carr [facility] May 26, 2023 3:14pm Note Date/Time May 26, 2023 3:00pm [facility] [address] [place] [address] Hospitalist Progress Note Signed Patient: Al Kuo MR# : [id number] : 1945 Acct:[id number] Age/Sex: 77 / M Adm Date: 3 Loc: Room: 7C3601-7 Type: ADM IN Attending Dr: Delmer Whyte MD Copies to: ~ Date of Service: 05/26/2023 Subjective Subjective Narrative: Patient seen and examined on follow up. Continues to work with therapy. Reported concerns from staff of erythema LLE that was marked by staff for further observation - nonpainful. Still with left knee postoperative pain as anticipated. Vitals reviewed, BP controlled, afebrile, no hypoxia. Labs reviewed from 05/19/23 microcytic anemia stable postop with Hgb 9.7, chronic thrombocytopenia stable with platelets 149, CMP stable electrolytes liver and renal function. Exam Physical Exam Vital Signs: Temp Pulse Resp BP Pulse Ox O2 Del Method 97.4 F L 78 20 127/83 97 Room Air 05/26/23 04:44 05/26/23 04:44 05/26/23 04:44 05/26/23 04:44 05/26/23 04:44 05/26/23 04:44 Narrative: CONST-alert, in bed, no distress CARDIAC-normal rate, regular rhythm, normal S1 & S2. PULM-diminished without wheeze or rhonchi, RA, no accessory muscle use or cough noted ABD - Soft. Bowel sounds are normal. No distention No tenderness. obese EXTREM- +2LLE, +1 RLE edema BLE calves nontender. Right knee tenderness SKIN-incision site occluded by dressing Objective Lab Results 05/19/23 05:25 05/19/23 05:25 Meds Allergies and Active Meds Allergies No Known Allergies Allergy (Verified 04/28/23 09:09) Active Meds: Active Medications Generic Name Dose Route Start Last Admin Trade Name Freq PRN Reason Stop Dose Admin Acetaminophen 1,000 mg 05/18/23 22:00 05/26/23 04:47 Acetaminophen 500 Mg Tablet PO 05/17/24 21:59 1,000 mg Q8H NIKOLAS Administration Al Hydrox/Mg Hydrox/Simethicone 30 ml 05/18/23 15:53 Mag Hydrox/Al Hydrox/Simeth 30 Ml Udc PO 05/17/24 15:52 Q4H PRN Indigestion Allopurinol 300 mg 05/19/23 09:00 05/25/23 10:00 Allopurinol 300 Mg Tablet PO 05/18/24 08:59 300 mg QAM NIKOLAS Administration Apixaban 5 mg 05/18/23 21:00 05/25/23 21:22 Apixaban 5 Mg Tablet PO 05/17/24 20:59 5 mg BID NIKOLAS Administration Ascorbic Acid 500 mg 05/18/23 17:00 05/25/23 16:09 Ascorbic Acid 500 Mg Tablet PO 05/17/24 16:59 500 mg BID.WITH.MEALS NIKOLAS Administration Bisacodyl 10 mg 05/18/23 15:47 05/19/23 09:12 Bisacodyl 5 Mg Tablet.Dr PO 05/17/24 15:46 10 mg DAILY PRN Administration Constipation Bisacodyl 10 mg 05/18/23 15:53 Bisacodyl 10 Mg Supp.Rect TN 05/17/24 15:52 DAILY PRN Constipation Carvedilol 25 mg 05/18/23 21:00 05/25/23 21:22 Carvedilol 25 Mg Tablet PO 05/17/24 20:59 25 mg BID NIKOLAS Administration Cyanocobalamin 1,000 mcg 05/19/23 09:00 05/25/23 09:59 Cyanocobalamin 1,000 Mcg Tablet PO 05/18/24 08:59 1,000 mcg QAM NIKOLAS Administration Docusate Sodium 100 mg 05/18/23 15:53 05/23/23 05:46 Docusate 100 Mg Capsule PO 05/17/24 15:52 100 mg BID PRN Administration Constipation Docusate Sodium 283 mg 05/18/23 15:53 Docusate Enema 283 Mg/5 Ml Enema TN 05/17/24 15:52 DAILY PRN Constipation Ferrous Sulfate 324 mg 05/18/23 17:00 05/25/23 16:09 Ferrous Sulfate 324 Mg Tablet.Dr PO 05/17/24 16:59 324 mg BID.WITH.MEALS NIKOLAS Administration Folic Acid 1 mg 05/19/23 09:00 05/25/23 09:59 Folic Acid 1 Mg Tablet PO 05/18/24 08:59 1 mg DAILY NIKOLAS Administration Lactulose 30 gm 05/18/23 15:53 Lactulose 20 Gm/30 Ml Udc PO 05/17/24 15:52 DAILY PRN Constipation Ondansetron HCl 8 mg 05/18/23 15:47 Ondansetron Odt 4 Mg Tab.Rapdis PO 05/17/24 15:46 TID PRN Nausea Oxycodone HCl 5 mg 05/18/23 15:47 05/25/23 21:23 Oxycodone Ir 5 Mg Tablet PO 5 mg Q4HR PRN Administration Pain Scale 8 - 10 Polyethylene Glycol 17 gm 05/18/23 15:47 Polyethylene Glycol 3350 17 Gm Powd.Pack PO 05/17/24 15:46 DAILY PRN Constipation Prednisone 10 mg 05/19/23 09:00 05/25/23 09:59 Prednisone 10 Mg Tablet PO 05/18/24 08:59 10 mg DAILY NIKOLAS Administration Senna/Docusate Sodium 2 tab 05/19/23 09:00 05/25/23 09:58 Sennosides/Docusate 8.6-50mg 1 Tab Tablet PO 05/18/24 08:59 2 tab DAILY NIKOLAS Administration Sennosides 2 tab 05/19/23 12:00 Sennosides 8.6 Mg Tablet PO 05/18/24 11:59 DAILY@12 PRN If no BM in 2 days Sodium Chloride 0 ml 05/18/23 15:53 Sodium Chloride 0.9 % 10 Ml Syringe IV-PUSH 05/17/24 15:52 PRN PRN Flush Spironolactone 25 mg 05/19/23 09:00 05/25/23 10:00 Spironolactone 25 Mg Tablet PO 05/18/24 08:59 25 mg QAM NIKOLAS Administration Tramadol HCl 50 mg 05/18/23 15:47 05/25/23 21:22 Tramadol 50 Mg Tablet PO 11/14/23 15:46 50 mg Q4H PRN Administration Pain Scale 5 - 7 Vitamin D 125 mcg 05/19/23 09:00 05/25/23 09:59 Cholecalciferol 125 Mcg (5,000 Units) Capsule PO 05/18/24 08:59 125 mcg DAILY NIKOLAS Administration A&P - Hospitalist Assessment/Plan (1) Status post left knee replacement: (2) Hypertension: (3) Anemia: Plan Left knee osteoarthritis s/p left knee replacement 05/12 Anemia of acute blood loss ?Plan of care for rehabilitation, PT/OT, DVT prophylaxis, bowel regimen per PM&Rteam. Any issues pertaining to incision site to be deferred to the orthopedic team. ?hgb preop 12.1, no signs and symptoms of bleeding. On ferrous sulfate, continue to monitor -steroid per ortho team Chronic Conditions 1. Hypertension, Afib on chronic anticoagulation - carvedilol, apixaban, spironolactone, BP well controlled, continue to monitor 2. Gout - allopurinol 3. Morbid obesity, lymphedema, obstructive sleep apnea does not wear CPAP or [id number] Documented By: Bernadette Carr APRN 05/07 07/28 1500 Signed By: <Electronically signed by QUYNH Carr> 05/26/23 1543 [facility] Work Phone: 1(241) 898-355711-20-2023 Progress note Author Delmer Whtye [facility] May 25, 2023 3:29pm Note Date/Time May 25, 2023 3:29pm [facility] [address] [place] [address] Physiatry(Rehab) Progress Note Signed Patient: Al Kuo MR# : [id number] : 1945 Acct:[id number] Age/Sex: 77 / M Adm Date: 3 Loc: Room: 6H7500-6 Type: ADM IN Attending Dr: Delmer Whyte MD Copies to: ~ Date of Service: 05/25/2023 Subjective Subjective Narrative: Mr. Kuo is a 77 year old male with a past medical history of A-fib anticoagulated with Eliquis, hypertension, sleep apnea, pulmonary hypertension, and arthritis admitted to acute rehab with functional impairments secondary to elective knee replacement. Patient failed conservative treatment and was recommended surgical intervention. Dr. Govea performed robotic assisted left total knee arthroplasty with negative pressure wound therapy application on 05/12/2023. Patient tolerated theprocedure well and there was no immediate postop complication. Of note, patientunderwent a right total knee arthroplasty approximately 1 year ago and subsequently admitted to acute rehab for therapy. His hospital course was unremarkable. Patient did quite well in therapy and was recommended home with home health services. However, patient and family did not feel that he would be safe at home and requested acute rehab placement. INTERVAL HISTORY: Improving in therapy, nursing noted possibly some increased erythema and swelling at left lower leg overnight. Area was outlined with skin marker, at this point it seems to be resolving. He is anticoagulated. Review of Systems Review of Systems All other systems reviewed & are negative unless noted below or in HPI Exam Physical Exam Vital Signs: Temp Pulse Resp BP Pulse Ox O2 Del Method 98.3 F 52 L 18 112/78 96 Room Air 05/25/23 04:32 05/25/23 04:32 05/25/23 04:32 05/25/23 04:32 05/25/23 04:32 05/25/23 11:04 Narrative: Gen: Awake, oriented, cooperative. HEENT: Atraumatic, PERRL, EOMI Resp: No respiratory distress Cardio: Extremities well perfused MSK: Moves all extremities spontaneously Neuro: CN grossly intact Skin: No swelling, erythema, ecchymosis appreciated Psych: Mood and affect normal Objective Labs 05/19/23 05:25 05/19/23 05:25 Medications and Allergies Allergies and Active Meds: Allergies No Known Allergies Allergy (Verified 04/28/23 09:09) Active Medications Generic Name Dose Route Start Last Admin Trade Name Freq PRN Reason Stop Dose Admin Acetaminophen 1,000 mg 05/18/23 22:00 05/25/23 13:50 Acetaminophen 500 Mg Tablet PO 05/17/24 21:59 1,000 mg Q8H NIKOLAS Administration Al Hydrox/Mg Hydrox/Simethicone 30 ml 05/18/23 15:53 Mag Hydrox/Al Hydrox/Simeth 30 Ml Udc PO 05/17/24 15:52 Q4H PRN Indigestion Allopurinol 300 mg 05/19/23 09:00 05/25/23 10:00 Allopurinol 300 Mg Tablet PO 05/18/24 08:59 300 mg QAM NIKOLAS Administration Apixaban 5 mg 05/18/23 21:00 05/25/23 09:59 Apixaban 5 Mg Tablet PO 05/17/24 20:59 5 mg BID NIKOLAS Administration Ascorbic Acid 500 mg 05/18/23 17:00 05/25/23 09:59 Ascorbic Acid 500 Mg Tablet PO 05/17/24 16:59 500 mg BID.WITH.MEALS NIKOLAS Administration Bisacodyl 10 mg 05/18/23 15:47 05/19/23 09:12 Bisacodyl 5 Mg Tablet.Dr PO 05/17/24 15:46 10 mg DAILY PRN Administration Constipation Bisacodyl 10 mg 05/18/23 15:53 Bisacodyl 10 Mg Supp.Rect TN 05/17/24 15:52 DAILY PRN Constipation Carvedilol 25 mg 05/18/23 21:00 05/25/23 09:59 Carvedilol 25 Mg Tablet PO 05/17/24 20:59 25 mg BID NIKOLAS Administration Cefadroxil 500 mg 05/18/23 21:00 05/25/23 09:59 Cefadroxil 500 Mg Capsule PO 05/25/23 20:59 500 mg BID NIKOLAS Administration Cyanocobalamin 1,000 mcg 05/19/23 09:00 05/25/23 09:59 Cyanocobalamin 1,000 Mcg Tablet PO 05/18/24 08:59 1,000 mcg QAM NIKOLAS Administration Docusate Sodium 100 mg 05/18/23 15:53 05/23/23 05:46 Docusate 100 Mg Capsule PO 05/17/24 15:52 100 mg BID PRN Administration Constipation Docusate Sodium 283 mg 05/18/23 15:53 Docusate Enema 283 Mg/5 Ml Enema TN 05/17/24 15:52 DAILY PRN Constipation Ferrous Sulfate 324 mg 05/18/23 17:00 05/25/23 09:59 Ferrous Sulfate 324 Mg Tablet.Dr PO 05/17/24 16:59 324 mg BID.WITH.MEALS NIKOLAS Administration Folic Acid 1 mg 05/19/23 09:00 05/25/23 09:59 Folic Acid 1 Mg Tablet PO 05/18/24 08:59 1 mg DAILY NIKOLAS Administration Lactulose 30 gm 05/18/23 15:53 Lactulose 20 Gm/30 Ml Udc PO 05/17/24 15:52 DAILY PRN Constipation Ondansetron HCl 8 mg 05/18/23 15:47 Ondansetron Odt 4 Mg Tab.Rapdis PO 05/17/24 15:46 TID PRN Nausea Oxycodone HCl 5 mg 05/18/23 15:47 05/25/23 09:59 Oxycodone Ir 5 Mg Tablet PO 5 mg Q4HR PRN Administration Pain Scale 8 - 10 Polyethylene Glycol 17 gm 05/18/23 15:47 Polyethylene Glycol 3350 17 Gm Powd.Pack PO 05/17/24 15:46 DAILY PRN Constipation Prednisone 10 mg 05/19/23 09:00 05/25/23 09:59 Prednisone 10 Mg Tablet PO 05/18/24 08:59 10 mg DAILY NIKOLAS Administration Senna/Docusate Sodium 2 tab 05/19/23 09:00 05/25/23 09:58 Sennosides/Docusate 8.6-50mg 1 Tab Tablet PO 05/18/24 08:59 2 tab DAILY NIKOLAS Administration Sennosides 2 tab 05/19/23 12:00 Sennosides 8.6 Mg Tablet PO 05/18/24 11:59 DAILY@12 PRN If no BM in 2 days Sodium Chloride 0 ml 05/18/23 15:53 Sodium Chloride 0.9 % 10 Ml Syringe IV-PUSH 05/17/24 15:52 PRN PRN Flush Spironolactone 25 mg 05/19/23 09:00 05/25/23 10:00 Spironolactone 25 Mg Tablet PO 05/18/24 08:59 25 mg QAM NIKOLAS Administration Tramadol HCl 50 mg 05/18/23 15:47 05/24/23 17:17 Tramadol 50 Mg Tablet PO 11/14/23 15:46 50 mg Q4H PRN Administration Pain Scale 5 - 7 Vitamin D 125 mcg 05/19/23 09:00 05/25/23 09:59 Cholecalciferol 125 Mcg (5,000 Units) Capsule PO 05/18/24 08:59 125 mcg DAILY NIKOLAS Administration Assessment/Plan Assessment/Plan (1) Status post left knee replacement: Code(s): Z96.652 - Presence of left artificial knee joint Status: Acute (2) Hypertension: Code(s): I10 - Essential (primary) hypertension Status: Acute (3) Anemia: Code(s): D64.9 - Anemia, unspecified Status: Acute (4) Atrial fibrillation: Code(s): I48.91 - Unspecified atrial fibrillation Status: Acute (5) Morbid obesity with BMI of 40.0-44.9, adult: Code(s): E66.01 - Morbid (severe) obesity due to excess calories; Z68.41 - Body mass index [BMI] 40.0-44.9, adult Status: Acute (6) Lymphedema: Code(s): I89.0 - Lymphedema, not elsewhere classified Status: Acute (7) Impaired mobility and activities of daily living: Code(s): Z74.09 - Other reduced mobility; Z78.9 - Other specified health status Status: Acute Plan 77-year-old male presenting to acute rehab with functional limitations secondary to left knee replacement. Patient is known to us from his previous rehab admission after undergoing right total knee replacement. * Agree with ice/elevation between therapy sessions / when lying in bed * Check venous duplex, although he is already anticoagulated. * FI went well with daughter, plan is home Thursday. * Vac off tomorrow Patient education Pressure ulcer prophylaxis; encourage mobilization, frequent postural changes, pressure-relief techniques DVT prophylaxis: Home Eliquis Encourage deep breathing exercise incentive spirometry. Monitor bladder. Toileting schedule. Continue current bladder management, with scans as needed and CIC if needed. Start bowel care program every day to obtain continence, prevent ileus. Maintain fall precautions Gait and balance retraining Functional training and self-care and home management, including activities of daily living and instrumental activities of daily living Provision of the necessary gait aids and functional adaptive equipment to enhance the patient's a functional latter-day Ensure adequate nutrition and hydration Sleep issues no concerns Pain: Continue current regimen Discharge planning: Home in a week or so. Plan: I completed a substantive portion of this encounter, the medical decision making portion of this note in its entirety, including Allied health note review, nursing note review, retail consultant note review, discussion with nursing and case management, and more than 50% of my time was spent on counseling and coordination of care, time spent 20 minutes Patient was personally seen by me, Dr. Whyte, on the day of encounter, reviewed the history and the relevant portions of the chart, including current orders, allied health and retail consultant notes, labs/imaging and performed jim elements of exam and I formulated the plan of care and facilitated the medical decision making. Documented By: Delmer Whyte MD 05/25/231526 Signed By: <Electronically signed by Delmer Whyte MD> 05/25/23 1529 [facility] Work Phone: 1(384) 725-778211-18-2023 Progress note Author Omar Jackman [facility] May 23, 2023 3:41pm Note Date/Time May 23, 2023 3:41pm [facility] [address] [place] [address] Physiatry(Rehab) Progress Note Signed Patient: Al Kuo MR# : [id number] : 1945 Acct:[id number] Age/Sex: 77 / M Adm Date: 3 Loc: Room: [address] [place] [address] Type: ADM IN Attending Dr: Delmer Whyte MD Copies to: ~ Date of Service: 05/23/2023 Subjective Subjective Narrative: Mr. Kuo is a 77 year old male with a past medical history of A-fib anticoagulated with Eliquis, hypertension, sleep apnea, pulmonary hypertension, and arthritis admitted to acute rehab with functional impairments secondary to elective knee replacement. Patient failed conservative treatment and was recommended surgical intervention. Dr. Govea performed robotic assisted left total knee arthroplasty with negative pressure wound therapy application on 05/12/2023. Patient tolerated theprocedure well and there was no immediate postop complication. Of note, patientunderwent a right total knee arthroplasty approximately 1 year ago and subsequently admitted to acute rehab for therapy. His hospital course was unremarkable. Patient did quite well in therapy and was recommended home with home health services. However, patient and family did not feel that he would be safe at home and requested acute rehab placement. INTERVAL HISTORY: This patient was seen and evaluated while working with therapy in the therapy gym. No obvious distress noted. Tolerating therapy. Review of Systems Review of Systems All other systems reviewed & are negative unless noted below or in HPI Exam Physical Exam Vital Signs: Temp Pulse Resp BP Pulse Ox O2 Del Method 97.4 F L 85 20 115/80 96 Room Air 05/23/23 05:00 05/23/23 05:00 05/23/23 05:00 05/23/23 08:18 05/23/23 05:00 05/23/23 05:00 Narrative: Gen: Awake, oriented, cooperative. HEENT: Atraumatic, PERRL, EOMI Resp: No respiratory distress Cardio: Extremities well perfused MSK: Moves all extremities spontaneously Neuro: CN grossly intact Skin: No swelling, erythema, ecchymosis appreciated Psych: Mood and affect normal Objective Labs 05/19/23 05:25 05/19/23 05:25 Medications and Allergies Allergies and Active Meds: Allergies No Known Allergies Allergy (Verified 04/28/23 09:09) Active Medications Generic Name Dose Route Start Last Admin Trade Name Freq PRN Reason Stop Dose Admin Acetaminophen 1,000 mg 05/18/23 22:00 05/23/23 14:06 Acetaminophen 500 Mg Tablet PO 05/17/24 21:59 1,000 mg Q8H NIKOLAS Administration Al Hydrox/Mg Hydrox/Simethicone 30 ml 05/18/23 15:53 Mag Hydrox/Al Hydrox/Simeth 30 Ml Udc PO 05/17/24 15:52 Q4H PRN Indigestion Allopurinol 300 mg 05/19/23 09:00 05/23/23 08:10 Allopurinol 300 Mg Tablet PO 05/18/24 08:59 300 mg QAM NIKOLAS Administration Apixaban 5 mg 05/18/23 21:00 05/23/23 08:09 Apixaban 5 Mg Tablet PO 05/17/24 20:59 5 mg BID NIKOLAS Administration Ascorbic Acid 500 mg 05/18/23 17:00 05/23/23 08:10 Ascorbic Acid 500 Mg Tablet PO 05/17/24 16:59 500 mg BID.WITH.MEALS NIKOLAS Administration Bisacodyl 10 mg 05/18/23 15:47 05/19/23 09:12 Bisacodyl 5 Mg Tablet. PO 05/17/24 15:46 10 mg DAILY PRN Administration Constipation Bisacodyl 10 mg 05/18/23 15:53 Bisacodyl 10 Mg Supp.Rect TN 05/17/24 15:52 DAILY PRN Constipation Carvedilol 25 mg 05/18/23 21:00 05/23/23 08:09 Carvedilol 25 Mg Tablet PO 05/17/24 20:59 25 mg BID NIKOLAS Administration Cefadroxil 500 mg 05/18/23 21:00 05/23/23 08:09 Cefadroxil 500 Mg Capsule PO 05/25/23 20:59 500 mg BID NIKOLAS Administration Cyanocobalamin 1,000 mcg 05/19/23 09:00 05/23/23 08:09 Cyanocobalamin 1,000 Mcg Tablet PO 05/18/24 08:59 1,000 mcg QAM NIKOLAS Administration Docusate Sodium 100 mg 05/18/23 15:53 05/23/23 05:46 Docusate 100 Mg Capsule PO 05/17/24 15:52 100 mg BID PRN Administration Constipation Docusate Sodium 283 mg 05/18/23 15:53 Docusate Enema 283 Mg/5 Ml Enema TN 05/17/24 15:52 DAILY PRN Constipation Ferrous Sulfate 324 mg 05/18/23 17:00 05/23/23 08:11 Ferrous Sulfate 324 Mg Tablet. PO 05/17/24 16:59 324 mg BID.WITH.MEALS NIKOLAS Administration Folic Acid 1 mg 05/19/23 09:00 05/23/23 08:09 Folic Acid 1 Mg Tablet PO 05/18/24 08:59 1 mg DAILY NIKOLAS Administration Lactulose 30 gm 05/18/23 15:53 Lactulose 20 Gm/30 Ml Udc PO 05/17/24 15:52 DAILY PRN Constipation Ondansetron HCl 8 mg 05/18/23 15:47 Ondansetron Odt 4 Mg Tab.Rapdis PO 05/17/24 15:46 TID PRN Nausea Oxycodone HCl 5 mg 05/18/23 15:47 05/23/23 14:06 Oxycodone Ir 5 Mg Tablet PO 5 mg Q4HR PRN Administration Pain Scale 8 - 10 Polyethylene Glycol 17 gm 05/18/23 15:47 Polyethylene Glycol 3350 17 Gm Powd.Pack PO 05/17/24 15:46 DAILY PRN Constipation Prednisone 10 mg 05/19/23 09:00 05/23/23 08:09 Prednisone 10 Mg Tablet PO 05/18/24 08:59 10 mg DAILY NIKOLAS Administration Senna/Docusate Sodium 2 tab 05/19/23 09:00 05/23/23 08:08 Sennosides/Docusate 8.6-50mg 1 Tab Tablet PO 05/18/24 08:59 2 tab DAILY NIKOLAS Administration Sennosides 2 tab 05/19/23 12:00 Sennosides 8.6 Mg Tablet PO 05/18/24 11:59 DAILY@12 PRN If no BM in 2 days Sodium Chloride 0 ml 05/18/23 15:53 Sodium Chloride 0.9 % 10 Ml Syringe IV-PUSH 05/17/24 15:52 PRN PRN Flush Spironolactone 25 mg 05/19/23 09:00 05/23/23 08:10 Spironolactone 25 Mg Tablet PO 05/18/24 08:59 25 mg QAM NIKOLAS Administration Tramadol HCl 50 mg 05/18/23 15:47 05/22/23 22:03 Tramadol 50 Mg Tablet PO 11/14/23 15:46 50 mg Q4H PRN Administration Pain Scale 5 - 7 Vitamin D 125 mcg 05/19/23 09:00 05/23/23 08:10 Cholecalciferol 125 Mcg (5,000 Units) Capsule PO 05/18/24 08:59 125 mcg DAILY NIKOLAS Administration Assessment/Plan Assessment/Plan (1) Status post left knee replacement: Code(s): Z96.652 - Presence of left artificial knee joint Status: Acute (2) Hypertension: Code(s): I10 - Essential (primary) hypertension Status: Acute (3) Anemia: Code(s): D64.9 - Anemia, unspecified Status: Acute (4) Atrial fibrillation: Code(s): I48.91 - Unspecified atrial fibrillation Status: Acute (5) Morbid obesity with BMI of 40.0-44.9, adult: Code(s): E66.01 - Morbid (severe) obesity due to excess calories; Z68.41 - Body mass index [BMI] 40.0-44.9, adult Status: Acute (6) Lymphedema: Code(s): I89.0 - Lymphedema, not elsewhere classified Status: Acute (7) Impaired mobility and activities of daily living: Code(s): Z74.09 - Other reduced mobility; Z78.9 - Other specified health status Status: Acute Plan 77-year-old male presenting to acute rehab with functional limitations secondary to left knee replacement. Patient is known to us from his previous rehab admission after undergoing right total knee replacement. * Continue to elevate and compress left lower extremity. Implement appropriate sized KARL hose. Encourage icing. * Otherwise clinically stable and has no concerns or complaints. * Progressing towards goals in therapy. Home with family soon. Patient education Pressure ulcer prophylaxis; encourage mobilization, frequent postural changes, pressure-relief techniques DVT prophylaxis: Home Eliquis Encourage deep breathing exercise incentive spirometry. Monitor bladder. Toileting schedule. Continue current bladder management, with scans as needed and CIC if needed. Start bowel care program every day to obtain continence, prevent ileus. Maintain fall precautions Gait and balance retraining Functional training and self-care and home management, including activities of daily living and instrumental activities of daily living Provision of the necessary gait aids and functional adaptive equipment to enhance the patient's a functional latter-day Ensure adequate nutrition and hydration Sleep issues no concerns Pain: Continue current regimen Discharge planning: Home in a week or so. Plan: I completed a substantive portion of this encounter, the medical decision making portion of this note in its entirety, including Allied health note review, nursing note review, retail consultant note review, discussion with nursing and case management, and more than 50% of my time was spent on counseling and coordination of care, time spent 20 minutes Patient was personally seen by me, Dr. Jackman, on the day of encounter, reviewed the history and the relevant portions of the chart, including current orders, allied health and retail consultant notes, labs/imaging and performed jim elements of exam and I formulated the plan of care and facilitated the medical decision making. Documented By: Omar Jackman MD [id number] Signed By: <Electronically signed by Omar Jackman MD> 05/23/23 4724 [facility] Work Phone: 1(272) 244-350911-17-2023 Progress note Author Omar Jackman [facility] May 22, 2023 3:34pm Note Date/Time May 22, 2023 3:34pm [facility] [address] [place] [address] Physiatry(Rehab) Progress Note Signed Patient: Al Kuo MR# : [id number] : 1945 Acct:[id number] Age/Sex: 77 / M Adm Date: 3 Loc: Room: [address] [place] [address] Type: ADM IN Attending Dr: Delmer Whyte MD Copies to: ~ Date of Service: 05/22/2023 Subjective Subjective Narrative: Mr. Kuo is a 77 year old male with a past medical history of A-fib anticoagulated with Eliquis, hypertension, sleep apnea, pulmonary hypertension, and arthritis admitted to acute rehab with functional impairments secondary to elective knee replacement. Patient failed conservative treatment and was recommended surgical intervention. Dr. Govea performed robotic assisted left total knee arthroplasty with negative pressure wound therapy application on 05/12/2023. Patient tolerated theprocedure well and there was no immediate postop complication. Of note, patientunderwent a right total knee arthroplasty approximately 1 year ago and subsequently admitted to acute rehab for therapy. His hospital course was unremarkable. Patient did quite well in therapy and was recommended home with home health services. However, patient and family did not feel that he would be safe at home and requested acute rehab placement. INTERVAL HISTORY: This patient was seen and evaluated at bedside. He is in no obvious distress today and he has no major concerns. The patient is tolerating therapy very well. He is hopeful to be discharged home early next week. Review of Systems Review of Systems All other systems reviewed & are negative unless noted below or in HPI Exam Physical Exam Vital Signs: Temp Pulse Resp BP Pulse Ox O2 Del Method 98.5 F 68 18 100/63 96 Room Air 05/22/23 08:31 05/22/23 08:31 05/22/23 08:31 05/22/23 08:31 05/22/23 08:31 05/22/23 08:31 Narrative: Gen: Awake, oriented, cooperative. HEENT: Atraumatic, PERRL, EOMI Resp: No respiratory distress Cardio: Extremities well perfused MSK: Moves all extremities spontaneously Neuro: CN grossly intact Skin: No swelling, erythema, ecchymosis appreciated Psych: Mood and affect normal Objective Labs 05/19/23 05:25 05/19/23 05:25 Medications and Allergies Allergies and Active Meds: Allergies No Known Allergies Allergy (Verified 04/28/23 09:09) Active Medications Generic Name Dose Route Start Last Admin Trade Name Freq PRN Reason Stop Dose Admin Acetaminophen 1,000 mg 05/18/23 22:00 05/22/23 13:09 Acetaminophen 500 Mg Tablet PO 05/17/24 21:59 1,000 mg Q8H NIKOLAS Administration Al Hydrox/Mg Hydrox/Simethicone 30 ml 05/18/23 15:53 Mag Hydrox/Al Hydrox/Simeth 30 Ml Udc PO 05/17/24 15:52 Q4H PRN Indigestion Allopurinol 300 mg 05/19/23 09:00 05/22/23 08:34 Allopurinol 300 Mg Tablet PO 05/18/24 08:59 300 mg QAM NIKOLAS Administration Apixaban 5 mg 05/18/23 21:00 05/22/23 08:34 Apixaban 5 Mg Tablet PO 05/17/24 20:59 5 mg BID NIKOLAS Administration Ascorbic Acid 500 mg 05/18/23 17:00 05/22/23 08:35 Ascorbic Acid 500 Mg Tablet PO 05/17/24 16:59 500 mg BID.WITH.MEALS NIKOLAS Administration Bisacodyl 10 mg 05/18/23 15:47 05/19/23 09:12 Bisacodyl 5 Mg Tablet.Dr PO 05/17/24 15:46 10 mg DAILY PRN Administration Constipation Bisacodyl 10 mg 05/18/23 15:53 Bisacodyl 10 Mg Supp.Rect TN 05/17/24 15:52 DAILY PRN Constipation Carvedilol 25 mg 05/18/23 21:00 05/22/23 08:35 Carvedilol 25 Mg Tablet PO 05/17/24 20:59 Not Given BID NIKOLAS Cefadroxil 500 mg 05/18/23 21:00 05/22/23 08:34 Cefadroxil 500 Mg Capsule PO 500 mg BID NIKOLAS Administration Cyanocobalamin 1,000 mcg 05/19/23 09:00 05/22/23 08:34 Cyanocobalamin 1,000 Mcg Tablet PO 05/18/24 08:59 1,000 mcg QAM NIKOLAS Administration Docusate Sodium 100 mg 05/18/23 15:53 05/21/23 20:33 Docusate 100 Mg Capsule PO 05/17/24 15:52 100 mg BID PRN Administration Constipation Docusate Sodium 283 mg 05/18/23 15:53 Docusate Enema 283 Mg/5 Ml Enema TN 05/17/24 15:52 DAILY PRN Constipation Ferrous Sulfate 324 mg 05/18/23 17:00 05/22/23 08:35 Ferrous Sulfate 324 Mg Tablet.Dr PO 05/17/24 16:59 324 mg BID.WITH.MEALS NIKOLAS Administration Folic Acid 1 mg 05/19/23 09:00 05/22/23 08:34 Folic Acid 1 Mg Tablet PO 05/18/24 08:59 1 mg DAILY NIKOLAS Administration Lactulose 30 gm 05/18/23 15:53 Lactulose 20 Gm/30 Ml Udc PO 05/17/24 15:52 DAILY PRN Constipation Ondansetron HCl 8 mg 05/18/23 15:47 Ondansetron Odt 4 Mg Tab.Rapdis PO 05/17/24 15:46 TID PRN Nausea Oxycodone HCl 5 mg 05/18/23 15:47 05/22/23 13:09 Oxycodone Ir 5 Mg Tablet PO 5 mg Q4HR PRN Administration Pain Scale 8 - 10 Polyethylene Glycol 17 gm 05/18/23 15:47 Polyethylene Glycol 3350 17 Gm Powd.Pack PO 05/17/24 15:46 DAILY PRN Constipation Prednisone 10 mg 05/19/23 09:00 05/22/23 08:34 Prednisone 10 Mg Tablet PO 05/18/24 08:59 10 mg DAILY NIKOLAS Administration Senna/Docusate Sodium 2 tab 05/19/23 09:00 05/22/23 08:36 Sennosides/Docusate 8.6-50mg 1 Tab Tablet PO 05/18/24 08:59 2 tab DAILY NIKOLAS Administration Sennosides 2 tab 05/19/23 12:00 Sennosides 8.6 Mg Tablet PO 05/18/24 11:59 DAILY@12 PRN If no BM in 2 days Sodium Chloride 0 ml 05/18/23 15:53 Sodium Chloride 0.9 % 10 Ml Syringe IV-PUSH 05/17/24 15:52 PRN PRN Flush Spironolactone 25 mg 05/19/23 09:00 05/22/23 08:36 Spironolactone 25 Mg Tablet PO 05/18/24 08:59 Not Given QAM NIKOLAS Tramadol HCl 50 mg 05/18/23 15:47 05/19/23 11:01 Tramadol 50 Mg Tablet PO 11/14/23 15:46 50 mg Q4H PRN Administration Pain Scale 5 - 7 Vitamin D 125 mcg 05/19/23 09:00 05/22/23 08:35 Cholecalciferol 125 Mcg (5,000 Units) Capsule PO 05/18/24 08:59 125 mcg DAILY NIKOLAS Administration Assessment/Plan Assessment/Plan (1) Status post left knee replacement: Code(s): Z96.652 - Presence of left artificial knee joint Status: Acute (2) Hypertension: Code(s): I10 - Essential (primary) hypertension Status: Acute (3) Anemia: Code(s): D64.9 - Anemia, unspecified Status: Acute (4) Atrial fibrillation: Code(s): I48.91 - Unspecified atrial fibrillation Status: Acute (5) Morbid obesity with BMI of 40.0-44.9, adult: Code(s): E66.01 - Morbid (severe) obesity due to excess calories; Z68.41 - Body mass index [BMI] 40.0-44.9, adult Status: Acute (6) Lymphedema: Code(s): I89.0 - Lymphedema, not elsewhere classified Status: Acute (7) Impaired mobility and activities of daily living: Code(s): Z74.09 - Other reduced mobility; Z78.9 - Other specified health status Status: Acute Plan 77-year-old male presenting to acute rehab with functional limitations secondary to left knee replacement. Patient is known to us from his previous rehab admission after undergoing right total knee replacement. * Continue to elevate and compress left lower extremity. Implement appropriate sized KARL hose. Encourage icing. * Otherwise clinically stable and has no concerns or complaints. * Progressing towards goals in therapy. Home with family soon. Patient education Pressure ulcer prophylaxis; encourage mobilization, frequent postural changes, pressure-relief techniques DVT prophylaxis: Home Eliquis Encourage deep breathing exercise incentive spirometry. Monitor bladder. Toileting schedule. Continue current bladder management, with scans as needed and CIC if needed. Start bowel care program every day to obtain continence, prevent ileus. Maintain fall precautions Gait and balance retraining Functional training and self-care and home management, including activities of daily living and instrumental activities of daily living Provision of the necessary gait aids and functional adaptive equipment to enhance the patient's a functional latter-day Ensure adequate nutrition and hydration Sleep issues no concerns Pain: Continue current regimen Discharge planning: Home in a week or so. Plan: I completed a substantive portion of this encounter, the medical decision making portion of this note in its entirety, including Allied health note review, nursing note review, retail consultant note review, discussion with nursing and case management, and more than 50% of my time was spent on counseling and coordination of care, time spent 20 minutes Patient was personally seen by me, Dr. Jackman, on the day of encounter, reviewed the history and the relevant portions of the chart, including current orders, allied health and retail consultant notes, labs/imaging and performed jim elements of exam and I formulated the plan of care and facilitated the medical decision making. Documented By: Omar Jackman MD [id number] Signed By: <Electronically signed by Omar Jackman MD> 05/22/23 1534 [facility] Work Phone: 1(333) 490-273811-16-2023 Progress note Author Omar Jackman [facility] May 21, 2023 2:24pm Note Date/Time May 21, 2023 12:25pm [facility] [address] [place] [address] Physiatry(Rehab) Progress Note Signed Patient: Al Kuo MR# : [id number] : 1945 Acct:[id number] Age/Sex: 77 / M Adm Date: 3 Loc: Room: 4W1594-2 Type: ADM IN Attending Dr: Delmer Whyte MD Copies to: ~ <Lillian Harris APRN - Last Filed: 05/21/23 12:25> Date of Service: 05/21/2023 Subjective <Lillian Harris APRN - Last Filed: 05/21/23 12:25> Subjective Narrative: Mr. Kuo is a 77 year old male with a past medical history of A-fib anticoagulated with Eliquis, hypertension, sleep apnea, pulmonary hypertension, and arthritis admitted to acute rehab with functional impairments secondary to elective knee replacement. Patient failed conservative treatment and was recommended surgical intervention. Dr. Govea performed robotic assisted left total knee arthroplasty with negative pressure wound therapy application on 05/12/2023. Patient tolerated theprocedure well and there was no immediate postop complication. Of note, patientunderwent a right total knee arthroplasty approximately 1 year ago and subsequently admitted to acute rehab for therapy. His hospital course was unremarkable. Patient did quite well in therapy and was recommended home with home health services. However, patient and family did not feel that he would be safe at home and requested acute rehab placement. INTERVAL HISTORY: Patient was seen and examined in his room. He is alert, pleasant, oriented x3. Endorses mild to moderate postop knee pain. Extremity appears significantly edematous and ecchymotic along the incision line. Continued encouragement to keep the extremity elevated. Nursing to apply compression daily. Patient otherwise denies any complaints or concerns. His appetite is appropriate. No issues with bowel or bladder. Continues to improve in therapy. Relating 235 feet with a walker and supervision, able to do the stairs. Independent with bed mobility and transfers. Review of Systems <Lillian Harris APRN - Last Filed: 05/21/23 12:25> Review of Systems All other systems reviewed & are negative unless noted below or in HPI Exam <Lillian Harris APRN - Last Filed: 05/21/23 12:25> Physical Exam Vital Signs: Temp Pulse Resp BP Pulse Ox O2 Del Method 97.6 F 83 18 144/85 H 94 L Room Air 05/21/23 05:51 05/21/23 05:51 05/21/23 05:51 05/21/23 05:51 05/21/23 05:51 05/21/23 05:51 Narrative: General: Awake, alert, oriented x3 HENT: Normal to inspection, normocephalic, atraumatic Eyes: PERRL, normal conjunctiva and sclera Neck: Normal ROM, normal visual inspection. Trachea midline. Cardio: Irregular heart rate and rhythm Respiratory: Clear to auscultation bilaterally. Normal respiratory effort. No respiratory distress. GI: Abdomen soft, nontender, nondistended, active bowel sounds x4 quadrants Neuro: CN II-XII intact. Strength 5/5, equal bilaterally Extremities: Left lower extremity nonpitting edema. Tenderness to palpation. Wound VAC to the left knee. No drainage in the canister Psych: Mood and affect appropriate. Normal speech. Objective <Lillian Harris, OUTREACH WORKER - Last Filed: 05/21/23 12:25> Labs 05/19/23 05:25 05/19/23 05:25 Additional Results Results Comments: I reviewed clinical lab tests, radiology reports and obtained and summated medical records and have ordered follow up lab tests and imaging studies as needed for rehabilitation care. Medications and Allergies Allergies and Active Meds: Allergies No Known Allergies Allergy (Verified 04/28/23 09:09) Active Medications Generic Name Dose Route Start Last Admin Trade Name Freq PRN Reason Stop Dose Admin Acetaminophen 1,000 mg 05/18/23 22:00 05/21/23 05:49 Acetaminophen 500 Mg Tablet PO 05/17/24 21:59 1,000 mg Q8H NIKOLAS Administration Al Hydrox/Mg Hydrox/Simethicone 30 ml 05/18/23 15:53 Mag Hydrox/Al Hydrox/Simeth 30 Ml Udc PO 05/17/24 15:52 Q4H PRN Indigestion Allopurinol 300 mg 05/19/23 09:00 05/21/23 10:08 Allopurinol 300 Mg Tablet PO 05/18/24 08:59 300 mg QAM NIKOLAS Administration Apixaban 5 mg 05/18/23 21:00 05/21/23 10:09 Apixaban 5 Mg Tablet PO 05/17/24 20:59 5 mg BID NIKOLAS Administration Ascorbic Acid 500 mg 05/18/23 17:00 05/21/23 10:09 Ascorbic Acid 500 Mg Tablet PO 05/17/24 16:59 500 mg BID.WITH.MEALS NIKOLAS Administration Bisacodyl 10 mg 05/18/23 15:47 05/19/23 09:12 Bisacodyl 5 Mg Tablet.Dr PO 05/17/24 15:46 10 mg DAILY PRN Administration Constipation Bisacodyl 10 mg 05/18/23 15:53 Bisacodyl 10 Mg Supp.Rect TN 05/17/24 15:52 DAILY PRN Constipation Carvedilol 25 mg 05/18/23 21:00 05/21/23 10:08 Carvedilol 25 Mg Tablet PO 05/17/24 20:59 25 mg BID NIKOLAS Administration Cefadroxil 500 mg 05/18/23 21:00 05/21/23 10:09 Cefadroxil 500 Mg Capsule PO 500 mg BID NIKOLAS Administration Cyanocobalamin 1,000 mcg 05/19/23 09:00 05/21/23 10:09 Cyanocobalamin 1,000 Mcg Tablet PO 05/18/24 08:59 1,000 mcg QAM NIKOLAS Administration Docusate Sodium 100 mg 05/18/23 15:53 Docusate 100 Mg Capsule PO 05/17/24 15:52 BID PRN Constipation Docusate Sodium 283 mg 05/18/23 15:53 Docusate Enema 283 Mg/5 Ml Enema TN 05/17/24 15:52 DAILY PRN Constipation Ferrous Sulfate 324 mg 05/18/23 17:00 05/21/23 10:09 Ferrous Sulfate 324 Mg Tablet.Dr PO 05/17/24 16:59 324 mg BID.WITH.MEALS NIKOLAS Administration Folic Acid 1 mg 05/19/23 09:00 05/21/23 10:09 Folic Acid 1 Mg Tablet PO 05/18/24 08:59 1 mg DAILY NIKOLAS Administration Lactulose 30 gm 05/18/23 15:53 Lactulose 20 Gm/30 Ml Udc PO 05/17/24 15:52 DAILY PRN Constipation Ondansetron HCl 8 mg 05/18/23 15:47 Ondansetron Odt 4 Mg Tab.Rapdis PO 05/17/24 15:46 TID PRN Nausea Oxycodone HCl 5 mg 05/18/23 15:47 05/21/23 10:11 Oxycodone Ir 5 Mg Tablet PO 5 mg Q4HR PRN Administration Pain Scale 8 - 10 Polyethylene Glycol 17 gm 05/18/23 15:47 Polyethylene Glycol 3350 17 Gm Powd.Pack PO 05/17/24 15:46 DAILY PRN Constipation Prednisone 10 mg 05/19/23 09:00 05/21/23 10:09 Prednisone 10 Mg Tablet PO 05/18/24 08:59 10 mg DAILY NIKOLAS Administration Senna/Docusate Sodium 2 tab 05/19/23 09:00 05/21/23 10:08 Sennosides/Docusate 8.6-50mg 1 Tab Tablet PO 05/18/24 08:59 2 tab DAILY NIKOLAS Administration Sennosides 2 tab 05/19/23 12:00 Sennosides 8.6 Mg Tablet PO 05/18/24 11:59 DAILY@12 PRN If no BM in 2 days Sodium Chloride 0 ml 05/18/23 15:53 Sodium Chloride 0.9 % 10 Ml Syringe IV-PUSH 05/17/24 15:52 PRN PRN Flush Spironolactone 25 mg 05/19/23 09:00 05/21/23 10:08 Spironolactone 25 Mg Tablet PO 05/18/24 08:59 25 mg QAM NIKOLAS Administration Tramadol HCl 50 mg 05/18/23 15:47 05/19/23 11:01 Tramadol 50 Mg Tablet PO 11/14/23 15:46 50 mg Q4H PRN Administration Pain Scale 5 - 7 Vitamin D 125 mcg 05/19/23 09:00 05/21/23 10:09 Cholecalciferol 125 Mcg (5,000 Units) Capsule PO 05/18/24 08:59 125 mcg DAILY NIKOLAS Administration Assessment/Plan <Lillian Harris, QUYNH - Last Filed: 05/21/23 12:25> Assessment/Plan (1) Status post left knee replacement: Code(s): Z96.652 - Presence of left artificial knee joint Status: Acute (2) Hypertension: Code(s): I10 - Essential (primary) hypertension Status: Acute (3) Anemia: Code(s): D64.9 - Anemia, unspecified Status: Acute (4) Atrial fibrillation: Code(s): I48.91 - Unspecified atrial fibrillation Status: Acute (5) Morbid obesity with BMI of 40.0-44.9, adult: Code(s): E66.01 - Morbid (severe) obesity due to excess calories; Z68.41 - Body mass index [BMI] 40.0-44.9, adult Status: Acute (6) Lymphedema: Code(s): I89.0 - Lymphedema, not elsewhere classified Status: Acute (7) Impaired mobility and activities of daily living: Code(s): Z74.09 - Other reduced mobility; Z78.9 - Other specified health status Status: Acute Plan 77-year-old male presenting to acute rehab with functional limitations secondary to left knee replacement. Patient is known to us from his previous rehab admission after undergoing right total knee replacement. * Continue to elevate and compress left lower extremity. Implement appropriate sized KARL hose. Encourage icing. * Otherwise clinically stable and has no concerns or complaints. * Progressing towards goals in therapy. Home with family soon. Patient education Pressure ulcer prophylaxis; encourage mobilization, frequent postural changes, pressure-relief techniques DVT prophylaxis: Home Eliquis Encourage deep breathing exercise incentive spirometry. Monitor bladder. Toileting schedule. Continue current bladder management, with scans as needed and CIC if needed. Start bowel care program every day to obtain continence, prevent ileus. Maintain fall precautions Gait and balance retraining Functional training and self-care and home management, including activities of daily living and instrumental activities of daily living Provision of the necessary gait aids and functional adaptive equipment to enhance the patient's a functional latter-day Ensure adequate nutrition and hydration Sleep issues no concerns Pain: Continue current regimen Discharge planning: Home in a week or so. I spent greater than 15 minutes for services, including [id number] encounter with the patient, discussion of the case, plan of care, and exam; and [id number] activities, such as reviewing pertinent retail consultant documentation, recent therapy notes, laboratory and radiology studies, and discussion of case with care team including physician, nursing, therapeutic case manager, and therapists. More than 50 % of time was spent on patient/family counseling or coordination of care. <Omar Jackman MD - Last Filed: 05/21/23 14:24> Assessment/Plan (1) Status post left knee replacement: (2) Hypertension: (3) Anemia: (4) Atrial fibrillation: (5) Morbid obesity with BMI of 40.0-44.9, adult: (6) Lymphedema: (7) Impaired mobility and activities of daily living: Plan: I completed a substantive portion of this encounter, the medical decision making portion of this note in its entirety, including Allied health note review, nursing note review, retail consultant note review, discussion with nursing and case management, and more than 50% of my time was spent on counseling and coordination of care, time spent 20 minutes Patient was personally seen by me, Dr. Jackman, on the day of encounter, within 24 hours of rehab admission, reviewed the history and the relevant portions of the chart, including current orders, allied health and retail consultant notes, labs/imaging and performed jim elements of exam and I formulated the plan of care and facilitated the medical decision making. Agree with above. Patient doing well. Hopeful DC next week early. Documented By: Lillian Harris APRN 05/21/23 1 219 Signed By: <Electronically signed by QUYNH Harris> 05/21/23 1225 <Electronically signed by Omar Jackman MD> 05/21/23 1424 [facility] Work Phone: 1(286) 663-206311-15-2023 Progress note Author Omar Jackman [facility] May 20, 2023 7:30pm Note Date/Time May 20, 2023 7:30pm [facility] [address] [place] [address] Physiatry(Rehab) Progress Note Signed Patient: Al Kuo MR# : [id number] : 1945 Acct:[id number] Age/Sex: 77 / M Adm Date: 3 Loc: Room: [address] [place] [address] Type: ADM IN Attending Dr: Delmer Whyte MD Copies to: ~ Date of Service: 05/20/2023 Subjective Subjective Narrative: Mr. Kuo is a 77 year old male with a past medical history of A-fib anticoagulated with Eliquis, hypertension, sleep apnea, pulmonary hypertension, and arthritis admitted to acute rehab with functional impairments secondary to elective knee replacement. Patient failed conservative treatment and was recommended surgical intervention. Dr. Govea performed robotic assisted left total knee arthroplasty with negative pressure wound therapy application on 05/12/2023. Patient tolerated theprocedure well and there was no immediate postop complication. Of note, patientunderwent a right total knee arthroplasty approximately 1 year ago and subsequently admitted to acute rehab for therapy. His hospital course was unremarkable. Patient did quite well in therapy and was recommended home with home health services. However, patient and family did not feel that he would be safe at home and requested acute rehab placement. INTERVAL HISTORY: Al was seen and evaluated while working with therapy. Is in no distress. Tolerating therapy well. Has no major concerns today. Continues to make excellent gains. Review of Systems Review of Systems All other systems reviewed & are negative unless noted below or in HPI Exam Physical Exam Vital Signs: Temp Pulse Resp BP Pulse Ox O2 Del Method 98.6 F 70 16 114/71 100 Room Air 05/20/23 16:00 05/20/23 16:00 05/20/23 16:00 05/20/23 16:00 05/20/23 16:00 05/20/23 16:00 Narrative: Gen: Awake, oriented, cooperative. HEENT: Atraumatic, PERRL, EOMI Resp: No respiratory distress Cardio: Extremities well perfused MSK: Moves all extremities spontaneously Neuro: CN grossly intact Skin: No swelling, erythema, ecchymosis appreciated Psych: Mood and affect normal Objective Labs 05/19/23 05:25 05/19/23 05:25 Medications and Allergies Allergies and Active Meds: Allergies No Known Allergies Allergy (Verified 04/28/23 09:09) Active Medications Generic Name Dose Route Start Last Admin Trade Name Freq PRN Reason Stop Dose Admin Acetaminophen 1,000 mg 05/18/23 22:00 05/20/23 13:13 Acetaminophen 500 Mg Tablet PO 05/17/24 21:59 1,000 mg Q8H NIKOLAS Administration Al Hydrox/Mg Hydrox/Simethicone 30 ml 05/18/23 15:53 Mag Hydrox/Al Hydrox/Simeth 30 Ml Udc PO 05/17/24 15:52 Q4H PRN Indigestion Allopurinol 300 mg 05/19/23 09:00 05/20/23 09:09 Allopurinol 300 Mg Tablet PO 05/18/24 08:59 300 mg QAM NIKOLAS Administration Apixaban 5 mg 05/18/23 21:00 05/20/23 09:10 Apixaban 5 Mg Tablet PO 05/17/24 20:59 5 mg BID NIKOLAS Administration Ascorbic Acid 500 mg 05/18/23 17:00 05/20/23 17:39 Ascorbic Acid 500 Mg Tablet PO 05/17/24 16:59 500 mg BID.WITH.MEALS NIKOLAS Administration Bisacodyl 10 mg 05/18/23 15:47 05/19/23 09:12 Bisacodyl 5 Mg Tablet. PO 05/17/24 15:46 10 mg DAILY PRN Administration Constipation Bisacodyl 10 mg 05/18/23 15:53 Bisacodyl 10 Mg Supp.Rect TN 05/17/24 15:52 DAILY PRN Constipation Carvedilol 25 mg 05/18/23 21:00 05/20/23 09:10 Carvedilol 25 Mg Tablet PO 05/17/24 20:59 Not Given BID NIKOLAS Cefadroxil 500 mg 05/18/23 21:00 05/20/23 09:08 Cefadroxil 500 Mg Capsule PO 500 mg BID NIKOLAS Administration Cyanocobalamin 1,000 mcg 05/19/23 09:00 05/20/23 09:10 Cyanocobalamin 1,000 Mcg Tablet PO 05/18/24 08:59 1,000 mcg QAM [facility] Administration Docusate Sodium 100 mg 05/18/23 15:53 Docusate 100 Mg Capsule PO 05/17/24 15:52 BID PRN Constipation Docusate Sodium 283 mg 05/18/23 15:53 Docusate Enema 283 Mg/5 Ml Enema TN 05/17/24 15:52 DAILY PRN Constipation Ferrous Sulfate 324 mg 05/18/23 17:00 05/20/23 17:39 Ferrous Sulfate 324 Mg Tablet. PO 05/17/24 16:59 324 mg BID.WITH.MEALS [facility] Administration Folic Acid 1 mg 05/19/23 09:00 05/20/23 09:09 Folic Acid 1 Mg Tablet PO 05/18/24 08:59 1 mg DAILY [facility] Administration Lactulose 30 gm 05/18/23 15:53 Lactulose 20 Gm/30 Ml Udc PO 05/17/24 15:52 DAILY PRN Constipation Ondansetron HCl 8 mg 05/18/23 15:47 Ondansetron Odt 4 Mg Tab.Rapdis PO 05/17/24 15:46 TID PRN Nausea Oxycodone HCl 5 mg 05/18/23 15:47 05/20/23 14:37 Oxycodone Ir 5 Mg Tablet PO 5 mg Q4HR PRN Administration Pain Scale 8 - 10 Polyethylene Glycol 17 gm 05/18/23 15:47 Polyethylene Glycol 3350 17 Gm Powd.Pack PO 05/17/24 15:46 DAILY PRN Constipation Prednisone 10 mg 05/19/23 09:00 05/20/23 09:09 Prednisone 10 Mg Tablet PO 05/18/24 08:59 10 mg DAILY NIKOLAS Administration Senna/Docusate Sodium 2 tab 05/19/23 09:00 05/20/23 09:08 Sennosides/Docusate 8.6-50mg 1 Tab Tablet PO 05/18/24 08:59 2 tab DAILY NIKOLAS Administration Sennosides 2 tab 05/19/23 12:00 Sennosides 8.6 Mg Tablet PO 05/18/24 11:59 DAILY@12 PRN If no BM in 2 days Sodium Chloride 0 ml 05/18/23 15:53 Sodium Chloride 0.9 % 10 Ml Syringe IV-PUSH 05/17/24 15:52 PRN PRN Flush Spironolactone 25 mg 05/19/23 09:00 05/20/23 09:10 Spironolactone 25 Mg Tablet PO 05/18/24 08:59 Not Given QAM NIKOLAS Tramadol HCl 50 mg 05/18/23 15:47 05/19/23 11:01 Tramadol 50 Mg Tablet PO 11/14/23 15:46 50 mg Q4H PRN Administration Pain Scale 5 - 7 Vitamin D 125 mcg 05/19/23 09:00 05/20/23 09:09 Cholecalciferol 125 Mcg (5,000 Units) Capsule PO 05/18/24 08:59 125 mcg DAILY NIKOLAS Administration Assessment/Plan Assessment/Plan (1) Status post left knee replacement: Code(s): Z96.652 - Presence of left artificial knee joint Status: Acute (2) Hypertension: Code(s): I10 - Essential (primary) hypertension Status: Acute (3) Anemia: Code(s): D64.9 - Anemia, unspecified Status: Acute (4) Atrial fibrillation: Code(s): I48.91 - Unspecified atrial fibrillation Status: Acute (5) Morbid obesity with BMI of 40.0-44.9, adult: Code(s): E66.01 - Morbid (severe) obesity due to excess calories; Z68.41 - Body mass index [BMI] 40.0-44.9, adult Status: Acute (6) Lymphedema: Code(s): I89.0 - Lymphedema, not elsewhere classified Status: Acute (7) Impaired mobility and activities of daily living: Code(s): Z74.09 - Other reduced mobility; Z78.9 - Other specified health status Status: Acute Plan 77-year-old male presenting to acute rehab with functional limitations secondary to left knee replacement. Patient is known to us from his previous rehab admission after undergoing right total knee replacement. * WBAT to the operative extremity per Ortho. * Maintain wound VAC x14 days postop * Continue Eliquis per home regimen * Trend blood counts. Patient education Pressure ulcer prophylaxis; encourage mobilization, frequent postural changes, pressure-relief techniques DVT prophylaxis: Home Eliquis Encourage deep breathing exercise incentive spirometry. Monitor bladder. Toileting schedule. Continue current bladder management, with scans as needed and CIC if needed. Start bowel care program every day to obtain continence, prevent ileus. Maintain fall precautions Gait and balance retraining Functional training and self-care and home management, including activities of daily living and instrumental activities of daily living Provision of the necessary gait aids and functional adaptive equipment to enhance the patient's a functional latter-day Ensure adequate nutrition and hydration Sleep issues no concerns Pain: Continue current regimen Discharge planning: Home in a week or so. Plan: I completed a substantive portion of this encounter, the medical decision making portion of this note in its entirety, including Allied health note review, nursing note review, retail consultant note review, discussion with nursing and case management, and more than 50% of my time was spent on counseling and coordination of care, time spent 25 minutes Patient was personally seen by me, Dr. Jackman, on the day of encounter, within 24 hours of rehab admission, reviewed the history and the relevant portions of the chart, including current orders, allied health and retail consultant notes, labs/imaging and performed jim elements of exam and I formulated the plan of care and facilitated the medical decision making. Documented By: Omar Jackman MD [id number] Signed By: <Electronically signed by Omar Jackman MD> 05/20/231929 [facility] Work Phone: [phone] Consult note Author Taiwo Guy [facility] May 20, 2023 8:02am Note Date/Time May 19, 2023 6:15pm [facility] [address] [place] [address] Hospitalist Consult Note Signed Patient: Al Kuo MR# : [id number] : 1945 Acct:[id number] Age/Sex: 77 / M Adm Date: 3 Loc: 5T Room: 1B3790-5 Type: ADM IN Attending Dr: Delmer Whyte MD Copies to: MD Real Oscar MD Joseph Riley, MD Linda Obika, OUTREACH WORKER~ HPI DATE OF CONSULTATION: 05/19/23 REQUESTING PROVIDER: Delmer Whyte Consult Narrative Reason for Consult: Hypertension, hyperlipidemia, atrial fibrillation, lymphedema HPI: Attending note: I saw the patient personally on the day of encounter. I reviewed the relevant history, and performed the jim elements of the physical examination. I reviewedthe relevant laboratory workup, radiological studies and the current treatment plan. 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 Mr. Al Kuo is a 77-year-old male with a PMHx of hypertension, hyperlipidemia, atrial fibrillation on Eliquis, lymphedema, morbid obesity, obstructive sleep apnea, osteoarthritis who elected to undergo left total knee arthroplasty secondary to left knee osteoarthritis on 05/12/2023 after failing conservative treatment. He tolerated the procedure well and there was no immediate postop complications. He was seen and evaluated by physical therapy who recommended acute inpatient rehabilitation. The hospitalist team has been consulted for medical management of hypertension and all other comorbidities. Patient seen and examined, resting comfortably in bed. Reporting moderately high pain but able to tolerate physical therapy today. Denies chest pain or palpitation. No cough, dyspnea, or pain with inspiration. No abdominal pain or indigestion, constipation or diarrhea, nausea or vomiting. No dysuria or retention. No headache or dizziness. No fevers. Review of Systems Review of Systems Review of systems: 10 point review of systems obtained, negative unless noted in the HPI below [facility] Source: Old Records Reviewed Medical History Arthritis Atrial fibrillation Colon cancer Edema Former smoker Gout History of cardioversion Hypertension LVH (left ventricular hypertrophy) Lymphedema Secondary pulmonary hypertension Sleep apnea Surgical History History of colon resection x 2 History of hernia repair History of joint replacement right knee replacement History of lumbar surgery History of phacoemulsification of cataract of both eyes with intraocular lens implantation Family History Father Myocardial infarction Mother Dementia Sister Colon cancer Brother Stroke Social History Smoking Status: Never smoker Tobacco Type: cigarettes Substance Use Type: Alcohol Substance Abuse Comment: 5 beers daily Meds Medications and Allergies Allergies No Known Allergies Allergy (Verified 04/28/23 09:09) Home Medications allopurinol 300 mg tablet 300 mg PO QAM 30 days #30 tabs 04/28/22 [Rx Confirmed 05/18/23] apixaban 5 mg tablet (Eliquis) 5 mg PO BID #60 tabs 04/28/22 [Rx Confirmed 05/18/23] carvedilol 25 mg tablet 25 mg PO BID 30 days #60 tabs 04/28/22 [Rx Confirmed 05/18/23] cholecalciferol (vitamin D3) 125 mcg (5,000 unit) capsule 125 mcg PO DAILY 30 days #30 caps 04/28/22 [Rx Confirmed 05/18/23] cyanocobalamin (vitamin B-12) 1,000 mcg tablet 1,000 mcg PO QAM 30 days #30 tabs1 [Rx Confirmed 05/18/23] folic acid 1 mg tablet 1 mg PO DAILY #30 tabs 04/28/22 [Rx Confirmed 05/18/23] spironolactone 25 mg tablet 25 mg PO QAM 30 days #30 tabs 04/28/22 [Rx Confirmed 05/18/23] acetaminophen 500 mg tablet 1,000 mg PO Q8H 05/18/23 [Rx Confirmed 05/18/23] ascorbic acid (vitamin C) 500 mg tablet (Vitamin C) 500 mg PO BID.WITH.MEALS 05/18/23 [Rx Confirmed 05/18/23] bisacodyl 5 mg tablet,delayed release 10 mg PO DAILY PRN Constipation 05/18/23 [Rx Confirmed 05/18/23] cefadroxil 500 mg capsule 500 mg PO BID 05/18/23 [Rx Confirmed 05/18/23] ferrous sulfate 324 mg (65 mg iron) tablet,delayed release 324 mg PO BID.WITH.MEALS 05/18/23 [Rx Confirmed 05/18/23] mineral oil (Fleet Mineral Oil enema) 1 ea TN ONCE PRN Constipation 05/18/23 [Rx] ondansetron 4 mg disintegrating tablet 8 mg PO TID PRN Nausea 05/18/23 [Rx Confirmed 05/18/23] oxycodone 5 mg tablet 5 mg PO Q4HR PRN Pain Scale 8 - 10 05/18/23 [History Confirmed 05/18/23] pantoprazole 40 mg tablet,delayed release 20 mg PO DAILY 05/18/23 [Rx] polyethylene glycol 3350 17 gram oral powder packet (HealthyLax) 17 g PO DAILY PRN Constipation 05/18/23 [Rx Confirmed 05/18/23] prednisone 10 mg tablet 10 mg PO DAILY 05/18/23 [Rx Confirmed 05/18/23] sennosides 8.6 mg-docusate sodium 50 mg tablet 2 tab PO DAILY 05/18/23 [Rx Confirmed 05/18/23] tramadol 50 mg tablet 50 mg PO Q4H PRN Pain Scale 5 - 7 05/18/23 [History Confirmed 05/18/23] Active Medications: Active Medications Generic Name Dose Route Start Last Admin Trade Name [id number] PRN Reason Stop Dose Admin Acetaminophen 1,000 mg 05/18/23 22:00 05/19/23 15:01 Acetaminophen 500 Mg Tablet PO 05/17/24 21:59 1,000 mg Q8H NIKOLAS Administration Al Hydrox/Mg Hydrox/Simethicone 30 ml 05/18/23 15:53 Mag Hydrox/Al Hydrox/Simeth 30 Ml Udc PO 05/17/24 15:52 Q4H PRN Indigestion Allopurinol 300 mg 05/19/23 09:00 05/19/23 09:12 Allopurinol 300 Mg Tablet PO 05/18/24 08:59 300 mg QAM NIKOLAS Administration Apixaban 5 mg 05/18/23 21:00 05/19/23 09:12 Apixaban 5 Mg Tablet PO 05/17/24 20:59 5 mg BID NIKOLAS Administration Ascorbic Acid 500 mg 05/18/23 17:00 05/19/23 16:42 Ascorbic Acid 500 Mg Tablet PO 05/17/24 16:59 500 mg BID.WITH.MEALS NIKOLAS Administration Bisacodyl 10 mg 05/18/23 15:47 05/19/23 09:12 Bisacodyl 5 Mg Tablet. PO 05/17/24 15:46 10 mg DAILY PRN Administration Constipation Bisacodyl 10 mg 05/18/23 15:53 Bisacodyl 10 Mg Supp.Rect TN 05/17/24 15:52 DAILY PRN Constipation Carvedilol 25 mg 05/18/23 21:00 05/19/23 09:11 Carvedilol 25 Mg Tablet PO 05/17/24 20:59 25 mg BID NIKOLAS Administration Cefadroxil 500 mg 05/18/23 21:00 05/19/23 09:11 Cefadroxil 500 Mg Capsule PO 500 mg BID NIKOLAS Administration Cyanocobalamin 1,000 mcg 05/19/23 09:00 05/19/23 09:12 Cyanocobalamin 1,000 Mcg Tablet PO 05/18/24 08:59 1,000 mcg QAM NIKOLAS Administration Docusate Sodium 100 mg 05/18/23 15:53 Docusate 100 Mg Capsule PO 05/17/24 15:52 BID PRN Constipation Docusate Sodium 283 mg 05/18/23 15:53 Docusate Enema 283 Mg/5 Ml Enema TN 05/17/24 15:52 DAILY PRN Constipation Ferrous Sulfate 324 mg 05/18/23 17:00 05/19/23 16:42 Ferrous Sulfate 324 Mg Tablet. PO 05/17/24 16:59 324 mg BID.WITH.MEALS NIKOLAS Administration Folic Acid 1 mg 05/19/23 09:00 05/19/23 09:12 Folic Acid 1 Mg Tablet PO 05/18/24 08:59 1 mg DAILY NIKOLAS Administration Lactulose 30 gm 05/18/23 15:53 Lactulose 20 Gm/30 Ml Udc PO 05/17/24 15:52 DAILY PRN Constipation Ondansetron HCl 8 mg 05/18/23 15:47 Ondansetron Odt 4 Mg Tab.Rapdis PO 05/17/24 15:46 TID PRN Nausea Oxycodone HCl 5 mg 05/18/23 15:47 05/18/23 23:06 Oxycodone Ir 5 Mg Tablet PO 5 mg Q4HR PRN Administration Pain Scale 8 - 10 Polyethylene Glycol 17 gm 05/18/23 15:47 Polyethylene Glycol 3350 17 Gm Powd.Pack PO 05/17/24 15:46 DAILY PRN Constipation Prednisone 10 mg 05/19/23 09:00 05/19/23 09:11 Prednisone 10 Mg Tablet PO 05/18/24 08:59 10 mg DAILY NIKOLAS Administration Senna/Docusate Sodium 2 tab 05/19/23 09:00 05/19/23 09:11 Sennosides/Docusate 8.6-50mg 1 Tab Tablet PO 05/18/24 08:59 2 tab DAILY NIKOLAS Administration Sennosides 2 tab 05/19/23 12:00 Sennosides 8.6 Mg Tablet PO 05/18/24 11:59 DAILY@12 PRN If no BM in 2 days Sodium Chloride 0 ml 05/18/23 15:53 Sodium Chloride 0.9 % 10 Ml Syringe IV-PUSH 05/17/24 15:52 PRN PRN Flush Spironolactone 25 mg 05/19/23 09:00 05/19/23 09:11 Spironolactone 25 Mg Tablet PO 05/18/24 08:59 25 mg QAM NIKOLAS Administration Tramadol HCl 50 mg 05/18/23 15:47 05/19/23 11:01 Tramadol 50 Mg Tablet PO 11/14/23 15:46 50 mg Q4H PRN Administration Pain Scale 5 - 7 Vitamin D 125 mcg 05/19/23 09:00 05/19/23 09:12 Cholecalciferol 125 Mcg (5,000 Units) Capsule PO 05/18/24 08:59 125 mcg DAILY NIKOLAS Administration Exam Physical Exam Vital Signs: Temp Pulse Resp BP Pulse Ox O2 Del Method 97.4 F L 92 H 18 108/69 94 L Room Air 05/19/23 05:58 05/19/23 16:00 05/19/23 16:00 05/19/23 16:00 05/19/23 16:00 05/19/23 16:00 Narrative: CONST-morbidly obese, comfortable, cooperative HEAD - Normocephalic and atraumatic EENT-Sclera nonicteric and conjunctive are nonerythemic, moist oral mucosa, pharynx clear NECK-Supple, no cervical lymphadenopathy CARDIAC-normal rate, regular rhythm, normal S1 & S2. PULM-diminished without wheeze or rhonchi, RA, no accessory muscle use or cough noted ABD - Soft. Bowel sounds are normal. No distention No tenderness EXTREM- + 3LLE, +2 RLE edema BLE calves nontender. Right knee tenderness SKIN-incision site occluded by dressing MS- MAEX4 spontaneously with equal with equal strength NEURO- A&Ox3 speech clear and tongue midline, equal facial symmetry no focal motor deficits PSYCH-Mood, affect and behavior appropriate Results Lab Results Labs: Laboratory Results - last 72 hr 05/19/23 05:25: PHA Creatinine Clear 90.14, Sodium 135 L, Potassium 4.3, Chloride 101, Carbon Dioxide 30.0, Anion Gap 8.3, BUN 25, Creatinine 0.94, Est GFR (CKD- EPI) > 60.0, Glucose 113 H, Calcium 8.6, Total Bilirubin 1.0, AST 8 L, ALT 8, Alkaline Phosphatase 42, Total Protein 5.5 L, Albumin 3.1 L, Globulin 2.4, Albumin/Globulin Ratio 1.3, Prealbumin 14.3 L 05/19/23 05:25: Corrected WBC 10.5, Uncorrected WBC Count 10.5, RBC 2.67 L, Hgb 9.7 L, Hct 27.5 L, MCV 103.1 H, MCH 36.2 H, MCHC 35.1, RDW 14.3, Plt Count 149 L, MPV 8.3, Neut % (Auto) 76.6, Lymph % (Auto) 11.5, [place] % (Auto) 9.4, Eos % (Auto) 2.2, Baso % (Auto) 0.3, Nucleat RBC Rel Count 0.1, Neut # (Auto) 8.1 H, Lymph # (Auto) 1.2, [place] # (Auto) 1.0 H, Eos # (Auto) 0.2, Baso # (Auto) 0.0 Assessment & Plan Assessment/Plan (1) Status post left knee replacement: (2) Impaired mobility and activities of daily living: (3) Hypertension: Plan Left knee osteoarthritis s/p left knee replacement 05/12 Impaired mobility and activities of daily living Anemia of acute blood loss ?Plan of care for rehabilitation, PT/OT, DVT prophylaxis, bowel regimen per PM&Rteam. Any issues pertaining to incision site to be deferred to the orthopedic team. ?On Duricef 500 mg twice daily x7 days per orthopedic team ?Hemoglobin 9.7, preop 12.1, no signs and symptoms of bleeding. On ferrous sulfate, continue to monitor Chronic Conditions 1. Hypertension, Afib -on carvedilol, apixaban, spironolactone, BP well controlled, continue to monitor 2. Gout -on allopurinol 3. Morbid obesity, lymphedema, obstructive sleep apnea does not wear CPAP or [id number] 4. On chronic steroid use, patient does not know why they are on steroid Documented By: Bindu Zabala APRN 05/19/23 180 Signed By: <Electronically signed by QUYNH Zabala> 05/19/23 1822 <Electronically signed by Taiwo Guy MD> 05/20/23 0802 [facility] Work Phone: [phone] History and physical note Author Omar Jackman [facility] May 19, 2023 2:34pm Note Date/Time May 19, 2023 10:03am [facility] [address] [place] [address] Physiatry (Rehab) H&P Signed Patient: Al Kuo MR# : [id number] : 1945 Acct:[id number] Age/Sex: 77 / M Adm Date: 3 Loc: Room: 6E2960-3 Type: ADM IN Attending Dr: Delmer Whyte MD Copies to: MD Real Bauman MD Elena Turovskaya, QUYNH Whyte MD~ Date of Service: 05/19/2023 HPI The patient was seen and examined on: 05/19/23 History of Present Illness: Mr. Kuo is a 77 year old male with a past medical history of A-fib anticoagulated with Eliquis, hypertension, sleep apnea, pulmonary hypertension, and arthritis admitted to acute rehab with functional impairments secondary to elective knee replacement. Patient failed conservative treatment and was recommended surgical intervention. Dr. Govea performed robotic assisted left total knee arthroplasty with negative pressure wound therapy application on 05/12/2023. Patient tolerated theprocedure well and there was no immediate postop complication. Of note, patientunderwent a right total knee arthroplasty approximately 1 year ago and subsequently admitted to acute rehab for therapy. His hospital course was unremarkable. Patient did quite well in therapy and was recommended home with home health services. However, patient and family did not feel that he would be safe at home and requested acute rehab placement. Admission to acute rehab he is alert and oriented x3, pleasant, cooperative withassessment. Reports anticipated tenderness in the left knee joint. The extremity is notably edematous. He is wearing compression stockings. Incision is covered with wound VAC dressing without abnormal surrounding erythema. Thereis no drainage in the tubing or wound VAC canister. He reports no bowel movement in several days. No complaints of abdominal pain or discomfort, he does not feel nauseous. Appetite is adequate. He has active bowel sounds throughout. Agreeable to bowel regimen adjustments. At discharge patient is planning to return home alone. [facility] Medical History Arthritis Atrial fibrillation Colon cancer Edema Former smoker Gout History of cardioversion Hypertension LVH (left ventricular hypertrophy) Lymphedema Secondary pulmonary hypertension Sleep apnea Surgical History History of colon resection x 2 History of hernia repair History of joint replacement right knee replacement History of lumbar surgery History of phacoemulsification of cataract of both eyes with intraocular lens implantation Family History Father Myocardial infarction Mother Dementia Sister Colon cancer Brother Stroke Social History Smoking Status: Never smoker Tobacco Type: cigarettes Substance Use Type: Alcohol Substance Abuse Comment: 5 beers daily Review of Systems Review of Systems All other systems reviewed & are negative unless noted below or in HPI Meds Medications and Allergies Allergies No Known Allergies Allergy (Verified 04/28/23 09:09) Home and Active Meds: Home Medications allopurinol 300 mg tablet 300 mg PO QAM 30 days #30 tabs 04/28/22 [Rx Confirmed 05/18/23] apixaban 5 mg tablet (Eliquis) 5 mg PO BID #60 tabs 04/28/22 [Rx Confirmed 05/18/23] carvedilol 25 mg tablet 25 mg PO BID 30 days #60 tabs 04/28/22 [Rx Confirmed 05/18/23] cholecalciferol (vitamin D3) 125 mcg (5,000 unit) capsule 125 mcg PO DAILY 30 days #30 caps 04/28/22 [Rx Confirmed 05/18/23] cyanocobalamin (vitamin B-12) 1,000 mcg tablet 1,000 mcg PO QAM 30 days #30 tabs1 [Rx Confirmed 05/18/23] folic acid 1 mg tablet 1 mg PO DAILY #30 tabs 04/28/22 [Rx Confirmed 05/18/23] spironolactone 25 mg tablet 25 mg PO QAM 30 days #30 tabs 04/28/22 [Rx Confirmed 05/18/23] acetaminophen 500 mg tablet 1,000 mg PO Q8H 05/18/23 [Rx Confirmed 05/18/23] ascorbic acid (vitamin C) 500 mg tablet (Vitamin C) 500 mg PO BID.WITH.MEALS 05/18/23 [Rx Confirmed 05/18/23] bisacodyl 5 mg tablet,delayed release 10 mg PO DAILY PRN Constipation 05/18/23 [Rx Confirmed 05/18/23] cefadroxil 500 mg capsule 500 mg PO BID 05/18/23 [Rx Confirmed 05/18/23] ferrous sulfate 324 mg (65 mg iron) tablet,delayed release 324 mg PO BID.WITH.MEALS 05/18/23 [Rx Confirmed 05/18/23] mineral oil (Fleet Mineral Oil enema) 1 ea TN ONCE PRN Constipation 05/18/23 [Rx] ondansetron 4 mg disintegrating tablet 8 mg PO TID PRN Nausea 05/18/23 [Rx Confirmed 05/18/23] oxycodone 5 mg tablet 5 mg PO Q4HR PRN Pain Scale 8 - 10 05/18/23 [History Confirmed 05/18/23] pantoprazole 40 mg tablet,delayed release 20 mg PO DAILY 05/18/23 [Rx] polyethylene glycol 3350 17 gram oral powder packet (HealthyLax) 17 g PO DAILY PRN Constipation 05/18/23 [Rx Confirmed 05/18/23] prednisone 10 mg tablet 10 mg PO DAILY 05/18/23 [Rx Confirmed 05/18/23] sennosides 8.6 mg-docusate sodium 50 mg tablet 2 tab PO DAILY 05/18/23 [Rx Confirmed 05/18/23] tramadol 50 mg tablet 50 mg PO Q4H PRN Pain Scale 5 - 7 05/18/23 [History Confirmed 05/18/23] Active Medications Acetaminophen (Acetaminophen 500 Mg Tablet) 1,000 mg PO Q8H [facility] Stop: 05/17/24 21:59 Last Admin: 05/19/23 05:59 Dose: 1,000 mg Al Hydrox/Mg Hydrox/Simethicone (Mag Hydrox/Al Hydrox/Simeth 30 Ml Udc) 30 ml PO Q4H PRN PRN Reason: Indigestion Stop: 05/17/24 15:52 Allopurinol (Allopurinol 300 Mg Tablet) 300 mg PO QAM [facility] Stop: 05/18/24 08:59 Last Admin: 05/19/23 09:12 Dose: 300 mg Apixaban (Apixaban 5 Mg Tablet) 5 mg PO BID [facility] Stop: 05/17/24 20:59 Last Admin: 05/19/23 09:12 Dose: 5 mg Ascorbic Acid (Ascorbic Acid 500 Mg Tablet) 500 mg PO BID.WITH.MEALS [facility] Stop: 05/17/24 16:59 Last Admin: 05/19/23 09:12 Dose: 500 mg Bisacodyl (Bisacodyl 5 Mg Tablet.Dr) 10 mg PO DAILY PRN PRN Reason: Constipation Stop: 05/17/24 15:46 Last Admin: 05/19/23 09:12 Dose: 10 mg Bisacodyl (Bisacodyl 10 Mg Supp.Rect) 10 mg TN DAILY PRN PRN Reason: Constipation Stop: 05/17/24 15:52 Carvedilol (Carvedilol 25 Mg Tablet) 25 mg PO BID [facility] Stop: 05/17/24 20:59 Last Admin: 05/19/23 09:11 Dose: 25 mg Cefadroxil (Cefadroxil 500 Mg Capsule) 500 mg PO BID [facility] Last Admin: 05/19/23 09:11 Dose: 500 mg Cyanocobalamin (Cyanocobalamin 1,000 Mcg Tablet) 1,000 mcg PO QAM [facility] Stop: 05/18/24 08:59 Last Admin: 05/19/23 09:12 Dose: 1,000 mcg Docusate Sodium (Docusate 100 Mg Capsule) 100 mg PO BID PRN PRN Reason: Constipation Stop: 05/17/24 15:52 Docusate Sodium (Docusate Enema 283 Mg/5 Ml Enema) 283 mg TN DAILY PRN PRN Reason: Constipation Stop: 05/17/24 15:52 Ferrous Sulfate (Ferrous Sulfate 324 Mg Tablet.Dr) 324 mg PO BID.WITH.MEALS [facility] Stop: 05/17/24 16:59 Last Admin: 05/19/23 09:12 Dose: 324 mg Folic Acid (Folic Acid 1 Mg Tablet) 1 mg PO DAILY [facility] Stop: 05/18/24 08:59 Last Admin: 05/19/23 09:12 Dose: 1 mg Lactulose (Lactulose 20 Gm/30 Ml Udc) 30 gm PO DAILY PRN PRN Reason: Constipation Stop: 05/17/24 15:52 Lactulose (Lactulose 20 Gm/30 Ml Udc) 30 gm PO ONCE ONE Stop: 05/19/23 10:01 Ondansetron HCl (Ondansetron Odt 4 Mg Tab.Rapdis) 8 mg PO TID PRN PRN Reason: Nausea Stop: 05/17/24 15:46 Oxycodone HCl (Oxycodone Ir 5 Mg Tablet) 5 mg PO Q4HR PRN PRN Reason: Pain Scale 8 - 10 Last Admin: 05/18/23 23:06 Dose: 5 mg Polyethylene Glycol (Polyethylene Glycol 3350 17 Gm Powd.Pack) 17 gm PO DAILY PRN PRN Reason: Constipation Stop: 05/17/24 15:46 Prednisone (Prednisone 10 Mg Tablet) 10 mg PO DAILY [facility] Stop: 05/18/24 08:59 Last Admin: 05/19/23 09:11 Dose: 10 mg Senna/Docusate Sodium (Sennosides/Docusate 8.6-50mg 1 Tab Tablet) 2 tab PO DAILY NIKOLAS Stop: 05/18/24 08:59 Last Admin: 05/19/23 09:11 Dose: 2 tab Sennosides (Sennosides 8.6 Mg Tablet) 2 tab PO DAILY@12 PRN PRN Reason: If no BM in 2 days Stop: 05/18/24 11:59 Sodium Chloride (Sodium Chloride 0.9 % 10 Ml Syringe) 0 ml IV-PUSH PRN PRN PRN Reason: Flush Stop: 05/17/24 15:52 Spironolactone (Spironolactone 25 Mg Tablet) 25 mg PO QAM [facility] Stop: 05/18/24 08:59 Last Admin: 05/19/23 09:11 Dose: 25 mg Tramadol HCl (Tramadol 50 Mg Tablet) 50 mg PO Q4H PRN PRN Reason: Pain Scale 5 - 7 Stop: 11/14/23 15:46 Vitamin D (Cholecalciferol 125 Mcg (5,000 Units) Capsule) 125 mcg PO DAILY [facility] Stop: 05/18/24 08:59 Last Admin: 05/19/23 09:12 Dose: 125 mcg Exam Physical Exam Vital Signs: Temp Pulse Resp BP Pulse Ox O2 Del Method 97.4 F L 86 18 114/72 94 L Room Air 05/19/23 05:58 05/19/23 05:58 05/19/23 05:58 05/19/23 05:58 05/19/23 05:58 05/19/23 05:58 Narrative: General: Awake, alert, oriented x3 HENT: Normal to inspection, normocephalic, atraumatic Eyes: PERRL, normal conjunctiva and sclera Neck: Normal ROM, normal visual inspection. Trachea midline. Cardio: Irregular heart rate and rhythm Respiratory: Clear to auscultation bilaterally. Normal respiratory effort. No respiratory distress. GI: Abdomen soft, nontender, nondistended, active bowel sounds x4 quadrants Neuro: CN II-XII intact. Strength 5/5, equal bilaterally Extremities: Left lower extremity nonpitting edema. Tenderness to palpation. Wound VAC to the left knee. No drainage in the canister Psych: Mood and affect appropriate. Normal speech. Results Labs Labs: Laboratory Results - last 24 hr 05/19/23 05/19/23 05:25 05:25 Corrected WBC 10.5 Uncorrected WBC Count 10.5 RBC 2.67 L Hgb 9.7 L Hct 27.5 L MCV 103.1 H MCH 36.2 H MCHC 35.1 RDW 14.3 Plt Count 149 L MPV 8.3 Neut % (Auto) 76.6 Lymph % (Auto) 11.5 [place] % (Auto) 9.4 Eos % (Auto) 2.2 Baso % (Auto) 0.3 Nucleat RBC Rel Count 0.1 Neut # (Auto) 8.1 H Lymph # (Auto) 1.2 [place] # (Auto) 1.0 H Eos # (Auto) 0.2 Baso # (Auto) 0.0 PHA Creatinine Clear 90.14 Sodium 135 L Potassium 4.3 Chloride 101 Carbon Dioxide 30.0 Anion Gap 8.3 BUN 25 Creatinine 0.94 Est GFR (CKD-EPI) > 60.0 Glucose 113 H Calcium 8.6 Total Bilirubin 1.0 AST 8 L ALT 8 Alkaline Phosphatase 42 Total Protein 5.5 L Albumin 3.1 L Globulin 2.4 Albumin/Globulin Ratio 1.3 Prealbumin 14.3 L Additional Results Results Comment: I reviewed clinical lab tests, radiology reports and obtained and summated medical records and have ordered follow up lab tests and imaging studies as needed for rehabilitation care. Functional Status Prior Level of Function Narrative: Previously independent Current Level of Function Narrative: Ambulatory 90 feet with a wheeled walker and contact-guard assist. CGA for chair transfer, independent with bed mobility. Individualized Plan of Care Individualized Plan of Care Plan of Care: Individualized Overall Plan of Care: Admit Date/Time: 05/18/23 Expected LOS: 7 Days Expected Discharge Destination: Home Rehabilitation [facility]: 8.61 Primary Diagnosis: as above Patient?s/Family?s anticipated outcomes/personal goals: To have patient become more independent and to return home. Medical/ Functional Prognosis: Good Anticipated Functional Outcomes/Goals and Interventions: -Therapy Functional Outcome/Goal: Mobility/Locomotion: Patient likely to be independent with ambulation with assistive device. Anticipated interventions: Physician management, PT, OT, Dietitian, Rehab Nursing - Therapy Functional Outcome/Goal: Self Care: Patient likely to be functionally independent for activities of daily living using assistive / adaptive equipment as needed. Anticipated interventions: Physician management, PT, OT, Dietitian, Rehab Nursing - Therapy Functional Outcome/Goal: Bladder/Bowel Management: Patient likely to be independent with bladder care and independent with bowel care. Anticipated interventions: Physician management, PT, OT, Dietitian, Rehab Nursing -Therapy Functional Outcome/Goal: Communication/Cognition: Patient will be able to communicate fully and be safe cognitively. Anticipated interventions: Physician management, PT, OT, Dietitian, Rehab Nursing -Therapy Functional Outcome/Goal: Patient will be independent for bed mobility and transfers Anticipated interventions: Physician management, PT, OT, Dietitian, Rehab Nursing -Therapy Functional Outcome/Goal: Patient will improve endurance to be able to tolerate all daily self care activities and avocational activities. Anticipated interventions: Physician management, PT, OT, Nutrition, Rehab Nursing -Therapy Functional Outcome/Goal: Patient will understand and assimilate / integrate education regarding management of their medical conditions to maintainhealth and wellbeing. Anticipated interventions: Physician management, PT, OT, Dietitian, Rehab Nursing Required Therapy PT: 1.5 hour per day at least 5 days per week with additional therapy on as needed basis. Comments: PT to improve pt's strength, endurance, bed mobility, transfers (sit-stand), standing balance, gait quality on level surfaces and stairs, coordination and functional ADL skills. Will also work to improve pt's safety awareness during transfers and ambulation. OT: 1.5 hour per day at least 5 days per week with additional therapy on as needed basis. Comments: OT for basic ADL re-training (bathing, dressing, toileting, continence, grooming, feeding, transferring), to increase activity tolerance andfunctional mobility and to evaluate for adaptive and assistive devices. Will work to improve pt's endurance and educate pt on fall prevention and energy conservation techniques-pacing strategies and proper breathing techniques duringfunctional tasks. Other: Nutrition, Rehab nursing, Wound, P&O RATIONALE FOR IRF ADMISSION: Patient has both medical and functional complexities that require 24 hour daily monitoring and intervention from Bank Advisor as well as other consulting physicians including internal medicine as well as 24 hour daily woodyard crane operator nursing - for medical safe / optimal management. Patient requires interdisciplinary therapy team rehabilitation care including OT, PT, SW, Rehab Nursing, requires and can tolerate at least 3 hoursof daily OT and PT therapy at least 5 days weekly. The following medical conditions significantly impact the rehabilitation process and are being addressed daily and can not be managed at home or in a lesser intense medical setting: Refer to above problem oriented plan of care Assessment/Plan (1) Status post left knee replacement: Code(s): Z96.652 - Presence of left artificial knee joint Status: Acute (2) Hypertension: Code(s): I10 - Essential (primary) hypertension Status: Acute (3) Anemia: Code(s): D64.9 - Anemia, unspecified Status: Acute (4) Atrial fibrillation: Code(s): I48.91 - Unspecified atrial fibrillation Status: Acute (5) Morbid obesity with BMI of 40.0-44.9, adult: Code(s): E66.01 - Morbid (severe) obesity due to excess calories; Z68.41 - Body mass index [BMI] 40.0-44.9, adult Status: Acute (6) Lymphedema: Code(s): I89.0 - Lymphedema, not elsewhere classified Status: Acute (7) Impaired mobility and activities of daily living: Code(s): Z74.09 - Other reduced mobility; Z78.9 - Other specified health status Status: Acute Plan 77-year-old male presenting to acute rehab with functional limitations secondary to left knee replacement. Patient is known to us from his previous rehab admission after undergoing right total knee replacement. * WBAT to the operative extremity per Ortho. * Maintain wound VAC x14 days postop * Continue Eliquis per home regimen * Trend blood counts. * Lactulose x1 today for residual constipation. Patient education Pressure ulcer prophylaxis; encourage mobilization, frequent postural changes, pressure-relief techniques DVT prophylaxis: Home Eliquis Encourage deep breathing exercise incentive spirometry. Monitor bladder. Toileting schedule. Continue current bladder management, with scans as needed and CIC if needed. Start bowel care program every day to obtain continence, prevent ileus. Maintain fall precautions Gait and balance retraining Functional training and self-care and home management, including activities of daily living and instrumental activities of daily living Provision of the necessary gait aids and functional adaptive equipment to enhance the patient's a functional latter-day Ensure adequate nutrition and hydration Sleep issues no concerns Pain: Continue current regimen Discharge planning: Home in a week or so. I spent greater than 35 minutes for services, including [id number] encounter with the patient, discussion of the case, plan of care, and exam; and [id number] activities, such as reviewing pertinent retail consultant documentation, recent therapy notes, laboratory and radiology studies, and discussion of case with care team including physician, nursing, therapeutic case manager, and therapists. More than 50 % of time was spent on patient/family counseling or coordination of care. Plan: I completed a substantive portion of this encounter, the medical decision making portion of this note in its entirety, including Allied health note review, nursing note review, retail consultant note review, discussion with nursing and case management, and more than 50% of my time was spent on counseling and coordination of care, time spent 45 minutes Patient was personally seen by me, Dr. Jackman, on the day of encounter, within 24 hours of rehab admission, reviewed the history and the relevant portions of the chart, including current orders, allied health and retail consultant notes, labs/imaging and performed jim elements of exam and I formulated the plan of care and facilitated the medical decision making. Agree with above. Patient doing quite well from a functional standpoint. I did not suspect that he will need significant amount of time in inpatient rehab. Patient states that he would love to be home prior to Thanksgiving which I think is a possibility. Admission labs reviewed. Does have some postop anemia. We will continue to follow. Documented By: Lillian Harris APRN 05/19/23 0 957 Signed By: <Electronically signed by QUYNH Harris> 05/19/23 1159 <Electronically signed by Omar Jackman MD> 05/19/23 1434 [facility] Work Phone: 1(192) 908-190010-25-2023 Evaluation note* Encounter Date Diagnosis Assessment Notes Treatment Notes Treatment Clinical Notes Apr, Aftercare following joint replacement surgery (ICD-10 - Z47.1) Apr, Presence of right artificial knee joint (ICD-10 - Z96.651) Apr, Acute pain of left knee (ICD-10 - M25.562) Apr, Age-related osteoporosis without current pathological fracture (ICD-10 - M81.0) Apr, Other care home (current) drug therapy (ICD-10 - Z79.899) Apr, Primary osteoarthritis of left knee (ICD-10 - M17.12) Apr, Other 1. Left TKA Home Medications - DVT prophylaxis: Home Eliquis - NSAID: Prednisone 10 mg x 10 days postop - Disposition: Inpatient with possible rehab. He did very well with inpatient rehab after his right knee. Joints Meeting Checklist - Pharmacy: [facility] to bed - Approach/Technique: BUTCH - Implants: Persona; stem - Anesthesia: General vs Spinal - Blocks: Adductor, iPACK - Preop Antibiotics: Ancef and Vanco - TXA: yes-systemic - Positioning/OR Bed: supine on regular bed - Intraop X-ray: no - Khalil: no - Tourniquet: yes - Antibiotic powder: yes-2 grams of vanc - Antibiotic cement: No - Dressing: Zipline and Prevena 14-day The patient has tried and failed all conservative treatment options to include: activity modification, physical therapy, oral anti-inflammatories, and intra-articular steroid injections. We will move forward with the definitive treatment option and schedule the patient for the above mentioned procedure. The risks involved with surgery and postoperative complications were discussed in relation to the patient's non-modifiable risk factors including but not limited to the following: Hypertension Hypercholesterolemia Atrial fibrillation on chronic anticoagulation All questions were answered after discussing these increased risks. The patient voiced understanding of these increased risks and still wishes to proceed with surgery. The risks involved with surgery and postoperative complications were discussed in relation to the patient's modifiable risk factors including but not limited to the following: BMI 40.8 Lymphedema-this has been managed well and is still being managed with compression stockings and his machine at home All questions were answered after discussing these increased risks. The patient voiced understanding of these increased risks and still wishes to proceed with surgery. The risks and benefits of the surgery were reviewed in depth with the patient, and all questions were answered. Informed consent was obtained. The risks and potential complications of the surgery include, but are not limited to: avascular necrosis, nonunion, nerve injury, blood vessel injury, excessive bleeding, blood transfusion, infection, persistent pain, loss of fixation, failure of the implant, deep vein thrombosis, pulmonary embolus, loss of limb, fracture, leg length discrepancy, and . Patient voiced understanding of these risks and has elected to proceed with the above surgery. OARRS report generated and reviewed. [facility] Other 11-01-2022 Evaluation note* Encounter Date Diagnosis Assessment Notes Treatment Notes Treatment Clinical Notes May, Aftercare following joint replacement surgery (ICD-10 - Z47.1) May, Presence of right artificial knee joint (ICD-10 - Z96.651) May, Other [facility] TKA at [facility] on 04/14/2022 Overall doing very well. Zipline was removed today. Patient may continue activities as tolerated. They are weightbearing as tolerated to the operative extremity and will begin outpatient PT. I stressed the importance of working to get full extension as he is doing great with his flexion. Patient instructed to continue weaning off narcotic pain medication. They will continue to take Celebrex and Tylenol as needed for assistance with swelling and pain associated with the operative extremity. Patient to continue their home Eliquis DVT prophylaxis as previously instructed. This includes wearing their KARL hose on the operative extremity for another week. Follow-up in 3 weeks for repeat examination and 3 view x-rays of the right knee. [facility] Other 10-22-2022 Progress note Author Watson Ryan [facility] April 26, 2022 2:20pm Note Date/Time April 26, 2022 2 :06pm [facility] [address] [place] [address] Hospitalist Progress Note Signed Patient: Al Kuo MR# : [id number] : 1945 Acct:[id number] Age/Sex: 76 / M Adm Date: 2 Loc: Room: [address] [place] [address] Type: ADM IN Attending Dr: Delmer Whyte MD Copies to: ~ Date of Service: 04/26/2022 Subjective Subjective Narrative: Patient seen and examined on follow-up. Patient resting comfortably in bed. Reporting just minimal pain to the right knee. Tolerating physical therapy welland looking forward to going home on Thursday. No new concerns at this time. Reviewed vital signs and lab lab results with patient. Vital signs are stable. Hemoglobin is stable instructed to follow-up outpatient to monitor hemoglobin and continue iron supplements. Exam Physical Exam Vital Signs: Temp Pulse Resp BP Pulse Ox O2 Del Method 98.1 F 104 H 20 123/70 93 L Room Air 04/26/22 06:33 04/26/22 06:33 04/26/22 06:33 04/26/22 06:33 04/26/22 06:33 04/26/22 06:33 Narrative: CONST- Appears well -developed and well nourished No acute distress. HEAD - Normocephalic and atraumatic CARDIAC-normal rate, regular rhythm, normal S1 & S2. PULM-diminished without wheeze or rhonchi, RA, no accessory muscle use or cough noted ABD - Soft. Bowel sounds are normal. No distention No tenderness EXTREM-+3 bilateral lower extremity edema. Objective Lab Results CBC & Chem 7: 04/21/22 08:48 04/25/22 06:40 Meds Allergies and Active Meds Allergies No Known Allergies Allergy (Verified 03/31/22 13:58) Active Meds: Active Medications Generic Name Dose Route Start Last Admin Trade Name Freq PRN Reason Stop Dose Admin Acetaminophen 500 mg 04/18/22 16:00 Acetaminophen 500 Mg Tablet PO 04/15/23 15:59 Q8H PRN Pain Al Hydrox/Mg Hydrox/Simethicone 30 ml 04/15/22 16:51 Mag Hydrox/Al Hydrox/Simeth 30 Ml Udc PO 04/15/23 16:50 Q4H PRN Indigestion Allopurinol 300 mg 04/16/22 09:00 04/26/22 08:53 Allopurinol 300 Mg Tablet PO 04/16/23 08:59 300 mg QAM NIKOLAS Administration Amlodipine Besylate 2.5 mg 04/19/22 09:00 Amlodipine 2.5 Mg Tablet PO 04/19/23 08:59 DAILY NIKOLAS Apixaban 5 mg 04/15/22 21:00 04/26/22 08:52 Apixaban 5 Mg Tablet PO 04/15/23 20:59 5 mg BID NIKOLAS Administration Ascorbic Acid 500 mg 04/15/22 17:00 04/26/22 08:52 Ascorbic Acid 500 Mg Tablet PO 04/15/23 16:59 500 mg BID.WITH.MEALS NIKOLAS Administration Bisacodyl 10 mg 04/15/22 16:51 Bisacodyl 10 Mg Supp.Rect TN 04/15/23 16:50 DAILY PRN Constipation Carvedilol 25 mg 04/15/22 21:00 04/26/22 08:52 Carvedilol 25 Mg Tablet PO 04/15/23 20:59 25 mg BID NIKOLAS Administration Cyanocobalamin 1,000 mcg 04/16/22 09:00 04/26/22 08:52 Cyanocobalamin 1,000 Mcg Tablet PO 04/16/23 08:59 1,000 mcg QAM NIKOLAS Administration Docusate Sodium 100 mg 04/15/22 16:51 04/25/22 21:25 Docusate 100 Mg Capsule PO 04/15/23 16:50 100 mg BID PRN Administration Constipation Docusate Sodium 283 mg 04/15/22 16:51 Docusate Enema 283 Mg/5 Ml Enema TN 04/15/23 16:50 DAILY PRN Constipation Ferrous Sulfate 324 mg 04/21/22 21:00 04/26/22 08:52 Ferrous Sulfate 324 Mg Tablet.Dr PO 04/21/23 20:59 324 mg BID NIKOLAS Administration Folic Acid 1 mg 04/16/22 09:00 04/26/22 08:52 Folic Acid 1 Mg Tablet PO 04/16/23 08:59 1 mg DAILY NIKOLAS Administration Furosemide 40 mg 04/18/22 08:00 04/26/22 08:52 Furosemide 40 Mg Tablet PO 04/18/23 07:59 40 mg DAILY.8A NIKOLAS Administration Hydralazine HCl 25 mg 04/18/22 21:00 Hydralazine 25 Mg Tablet PO 04/18/23 20:59 BID NIKOLAS Lactulose 30 gm 04/15/22 16:51 04/20/22 15:14 Lactulose 20 Gm/30 Ml Udc PO 04/15/23 16:50 30 gm DAILY PRN Administration Constipation Lisinopril 10 mg 04/19/22 09:00 Lisinopril 10 Mg Tablet PO 04/19/23 08:59 QAM NIKOLAS Melatonin 5 mg 04/16/22 22:00 04/25/22 21:25 Melatonin 5 Mg Tablet PO 04/16/23 21:59 5 mg QHS NIKOLAS Administration Omeprazole 20 mg 04/18/22 11:20 04/26/22 08:52 Omeprazole 20 Mg Capsule.Dr PO 04/18/23 11:19 20 mg DAILY NIKOLAS Administration Ondansetron HCl 8 mg 04/15/22 16:42 Ondansetron Odt 4 Mg Tab.Rapdis PO 04/15/23 16:41 TID PRN Nausea Oxycodone HCl 5 mg 04/15/22 16:42 04/26/22 08:53 Oxycodone Ir 5 Mg Tablet PO 5 mg Q4HR PRN Administration Pain Scale 6 - 10 Polyethylene Glycol 17 gm 04/15/22 16:42 04/26/22 08:53 Polyethylene Glycol 3350 17 Gm Powd.Pack PO 04/15/23 16:41 17 gm DAILY PRN Administration Constipation Senna/Docusate Sodium 2 tab 04/16/22 09:00 04/26/22 08:51 Sennosides/Docusate 8.6-50mg 1 Tab Tablet PO 04/16/23 08:59 2 tab DAILY NIKOLAS Administration Sennosides 2 tab 04/16/22 12:00 04/25/22 21:25 Sennosides 8.6 Mg Tablet PO 04/16/23 11:59 2 tab DAILY@12 PRN Administration If no BM in 2 days Sodium Chloride 0 ml 04/15/22 16:51 04/21/22 10:10 Sodium Chloride 0.9 % 10 Ml Syringe IV-PUSH 04/15/23 16:50 10 ml PRN PRN Administration Flush Spironolactone 25 mg 04/16/22 09:00 04/26/22 08:53 Spironolactone 25 Mg Tablet PO 04/16/23 08:59 25 mg QAM NIKOLAS Administration Trazodone HCl 50 mg 04/18/22 10:41 04/25/22 21:25 Trazodone 50 Mg Tablet PO 04/16/23 21:59 50 mg QHS PRN Administration Insomnia Vitamin D 125 mcg 04/16/22 09:00 04/26/22 08:52 Cholecalciferol 125 Mcg (5,000 Units) Capsule PO 04/16/23 08:59 125 mcg DAILY NIKOLAS Administration A&P - Hospitalist Assessment/Plan (1) Morbid obesity with BMI of 40.0-44.9, adult: (2) Status post right knee replacement: (3) Atrial fibrillation: (4) Hypertension: (5) Chronic anticoagulation: (6) Edema of both legs: (7) Hypotension: (8) Anemia: Plan s/p right knee arthroplasty 04/14 -Further POC per PMR team for rehabilitative therapy, pain control and bowel regimen, DVT PPx, surgical wound care -Please defer any questions/concerns to orthopedic team including but not limited to pain management, ambulation instructions, wound care, wound infection, wound to bleed, outpatient follow-up. -Cefadroxil completed -Preop Hgb 11.3, hemoglobin on 04/21 is 9.3, continue iron supplements Chronic conditions 1. A. fib on chronic anticoagulation, HTN?amlodipine, apixaban, carvedilol, allysine, lisinopril, spironolactone 2. Gout?allopurinol 3. TATIANA/obesity hypoventilation Documented By: Bindu Zabala APRN 04/26/22 1357 Signed By: <Electronically signed by QUYNH Zabala> 04/26/22 1412 <Electronically signed by Watson Ryan MD> 04/26/22 1420 [facility] Work Phone: 1(841) 138-972110-20-2022 Progress note Author Tommy Bah [facility] April 24, 2022 11:30am Note Date/Time April 23, 2022 1 2:07pm [facility] [address] [place] [address] Physiatry(Rehab) Progress Note Signed Patient: Al Kuo MR# : [id number] : 1945 Acct:[id number] Age/Sex: 76 / M Adm Date: 2 Loc: Room: 6N7581-0 Type: ADM IN Attending Dr: Delmer Whyte MD Copies to: ~ <Lillian Harris APRN - Last Filed: 04/23/22 12:30> Date of Service: 04/23/2022 Subjective <Lillian Harris APRN - Last Filed: 04/23/22 12:30> Subjective Narrative: Recall: Mr. Kuo is a 76-year-old male with past medical history as aboveadmitted to the rehabilitation unit with functional impairment status post righttotal knee arthroplasty complicated by morbid obesity, BMI 43.1. Pain and had progressive right knee pain, which failed conservative management. Robotic assisted right total knee arthroplasty completed on April 14. Postoperative course uncomplicated. Recommended for inpatient rehab by orthopedic surgeon and therapy. Recovery complicated by body habitus as noted. Interval history: Patient's operative extremity noted to be significantly more edematous this morning. Lower leg is erythematous and hot to touch. No significant drainage from the incision. Wound VAC canister also without drainage. Dr. Govea was notified of the findings, he will assess the patient tomorrow morning. For now, will obtain a venous BLE ultrasound. He will also receive additional 20 mg of Lasix in the evening x2 days. Consider starting the patient on an antibiotic for ?cellulitis of the RLE. He is doing well in therapy. Ambulating 204 feet with wheeled walker requiring only supervision. Independent with transfers and bed mobility. Chronic conditions including morbid obesity, hypertension, atrial fibrillation, gout are stable with current management. Review of Systems <Lillian Harris APRN - Last Filed: 04/23/22 12:30> Review of Systems All other systems reviewed & are negative unless noted below or in HPI Exam <Lillian Harris APRN - Last Filed: 04/23/22 12:30> Physical Exam Vital Signs: Temp Pulse Resp BP Pulse Ox O2 Del Method 98.0 F 73 18 147/82 H 94 L Room Air 04/23/22 07:21 04/23/22 07:21 04/23/22 07:21 04/23/22 07:21 04/23/22 07:21 04/23/22 07:21 Narrative: General: Alert and oriented, calm and cooperative, no acute distress. HENUT Head: normal to inspection Eyes General: appearance normal, both eyes and all related structures Neck Neck: normal visual inspection, no lymphadenopathy Resp Effort & Inspection: normal respiratory effort Auscultation: clear to auscultation bilaterally Cardio Rate: regular rate Rhythm: regular rhythm Heart Sounds: S1 normal, S2 normal GI Inspection: normal to inspection Auscultation: normal bowel sounds Neuro Cranial Nerves: CN's II-XI intact bilaterally Cognition: normal cognition Speech: speech normal Motor: strength 5/5 throughout Sensory Exam: no sensory deficits noted Plantar Reflexes: Downgoing Deep Tendon Reflexes DTR Comments: 1+ and symmetric Extrem General: Bilateral lower extremity edema, right >left. Right knee with occlusive dressing, wound VAC attached, no drainage in the canister. Psych Mood: normal affect Affect: normal affect Endurance fair Objective <Lillian Harris APRN - Last Filed: 04/23/22 12:30> Labs CBC & Chem 7: 04/21/22 08:48 04/21/22 08:48 Medications and Allergies Allergies and Active Meds: Allergies No Known Allergies Allergy (Verified 03/31/22 13:58) Active Medications Generic Name Dose Route Start Last Admin Trade Name Freq PRN Reason Stop Dose Admin Acetaminophen 500 mg 04/18/22 16:00 Acetaminophen 500 Mg Tablet PO 04/15/23 15:59 Q8H PRN Pain Al Hydrox/Mg Hydrox/Simethicone 30 ml 04/15/22 16:51 Mag Hydrox/Al Hydrox/Simeth 30 Ml Udc PO 04/15/23 16:50 Q4H PRN Indigestion Allopurinol 300 mg 04/16/22 09:00 04/23/22 08:05 Allopurinol 300 Mg Tablet PO 04/16/23 08:59 Not Given QAM NIKOLAS Amlodipine Besylate 2.5 mg 04/19/22 09:00 Amlodipine 2.5 Mg Tablet PO 04/19/23 08:59 DAILY NIKOLAS Apixaban 5 mg 04/15/22 21:00 04/23/22 09:57 Apixaban 5 Mg Tablet PO 04/15/23 20:59 5 mg BID NIKOLAS Administration Ascorbic Acid 500 mg 04/15/22 17:00 04/23/22 07:46 Ascorbic Acid 500 Mg Tablet PO 04/15/23 16:59 500 mg BID.WITH.MEALS NIKOLAS Administration Bisacodyl 10 mg 04/15/22 16:51 Bisacodyl 10 Mg Supp.Rect TN 04/15/23 16:50 DAILY PRN Constipation Carvedilol 25 mg 04/15/22 21:00 04/23/22 08:05 Carvedilol 25 Mg Tablet PO 04/15/23 20:59 Not Given BID [facility] Cyanocobalamin 1,000 mcg 04/16/22 09:00 04/23/22 08:05 Cyanocobalamin 1,000 Mcg Tablet PO 04/16/23 08:59 Not Given QAM [facility] Docusate Sodium 100 mg 04/15/22 16:51 04/20/22 06:36 Docusate 100 Mg Capsule PO 04/15/23 16:50 100 mg BID PRN Administration Constipation Docusate Sodium 283 mg 04/15/22 16:51 Docusate Enema 283 Mg/5 Ml Enema TN 04/15/23 16:50 DAILY PRN Constipation Ferrous Sulfate 324 mg 04/21/22 21:00 04/23/22 08:06 Ferrous Sulfate 324 Mg Tablet.Dr PO 04/21/23 20:59 Not Given BID [facility] Folic Acid 1 mg 04/16/22 09:00 04/23/22 08:06 Folic Acid 1 Mg Tablet PO 04/16/23 08:59 Not Given DAILY NIKOLAS Furosemide 40 mg 04/18/22 08:00 04/23/22 07:44 Furosemide 40 Mg Tablet PO 04/18/23 07:59 40 mg DAILY.8A NIKOLAS Administration Furosemide 20 mg 04/23/22 16:00 Furosemide 20 Mg Tablet PO 04/25/22 15:59 DAILY@1600 [facility] Hydralazine HCl 25 mg 04/18/22 21:00 Hydralazine 25 Mg Tablet PO 04/18/23 20:59 BID NIKOLAS Lactulose 30 gm 04/15/22 16:51 04/20/22 15:14 Lactulose 20 Gm/30 Ml Udc PO 04/15/23 16:50 30 gm DAILY PRN Administration Constipation Lisinopril 10 mg 04/19/22 09:00 Lisinopril 10 Mg Tablet PO 04/19/23 08:59 QAM NIKOLAS Melatonin 5 mg 04/16/22 22:00 04/22/22 20:02 Melatonin 5 Mg Tablet PO 04/16/23 21:59 5 mg QHS NIKOLAS Administration Omeprazole 20 mg 04/18/22 11:20 04/23/22 08:06 Omeprazole 20 Mg Capsule.Dr PO 04/18/23 11:19 Not Given DAILY [facility] Ondansetron HCl 8 mg 04/15/22 16:42 Ondansetron Odt 4 Mg Tab.Rapdis PO 04/15/23 16:41 TID PRN Nausea Oxycodone HCl 5 mg 04/15/22 16:42 04/22/22 20:01 Oxycodone Ir 5 Mg Tablet PO 5 mg Q4HR PRN Administration Pain Scale 6 - 10 Polyethylene Glycol 17 gm 04/15/22 16:42 04/19/22 07:53 Polyethylene Glycol 3350 17 Gm Powd.Pack PO 04/15/23 16:41 17 gm DAILY PRN Administration Constipation Senna/Docusate Sodium 2 tab 04/16/22 09:00 04/23/22 08:06 Sennosides/Docusate 8.6-50mg 1 Tab Tablet PO 04/16/23 08:59 Not Given DAILY [facility] Sennosides 2 tab 04/16/22 12:00 04/20/22 06:36 Sennosides 8.6 Mg Tablet PO 04/16/23 11:59 2 tab DAILY@12 PRN Administration If no BM in 2 days Sodium Chloride 0 ml 04/15/22 16:51 04/21/22 10:10 Sodium Chloride 0.9 % 10 Ml Syringe IV-PUSH 04/15/23 16:50 10 ml PRN PRN Administration Flush Sodium Chloride 10 ml 04/17/22 22:00 04/22/22 20:03 Sodium Chloride 0.9 % 10 Ml Syringe IV-PUSH 04/17/23 21:59 10 ml Q8H NIKOLAS Administration Spironolactone 25 mg 04/16/22 09:00 04/23/22 08:07 Spironolactone 25 Mg Tablet PO 04/16/23 08:59 Not Given QAM NIKOLAS Trazodone HCl 50 mg 04/18/22 10:41 04/18/22 22:10 Trazodone 50 Mg Tablet PO 04/16/23 21:59 50 mg QHS PRN Administration Insomnia Vitamin D 125 mcg 04/16/22 09:00 04/23/22 08:05 Cholecalciferol 125 Mcg (5,000 Units) Capsule PO 04/16/23 08:59 Not Given DAILY NIKOLAS Assessment/Plan <Lillian Harris, OUTREACH WORKER - Last Filed: 04/23/22 12:30> Assessment/Plan (1) Status post right knee replacement: Plan: PT to improve pt's strength, endurance, bed mobility, transfers (sit-stand), standing balance, gait quality on level surfaces and stairs, coordination and functional ADL skills. Will also work to improve pt's safety awareness during transfers and ambulation. OT for basic ADL re-training (bathing, dressing, toileting, continence, grooming, feeding, transferring), to increase activity tolerance and functional mobility and to evaluate for adaptive and assistive devices. Will work to improve pt's endurance and educate pt on fall prevention and energy conservationtechniques-pacing strategies and proper breathing techniques during functional tasks. Patient education Pressure ulcer prophylaxis; encourage mobilization, frequent postural changes, pressure-relief techniques DVT prophylaxis Encourage deep breathing exercise incentive spirometry. Monitor bladder. Toileting schedule. Continue current bladder management, with scans as needed and CIC if needed. Start bowel care program every day to obtain continence, prevent ileus. Maintain fall precautions Gait and balance retraining Provision of the necessary gait aids and functional adaptive equipment to enhance the patient's a functional latter-day Encourage deep breathing exercises and incentive spirometry RD evaluation Ensure adequate nutrition and hydration Discharge planning. Code(s): Z96.651 - Presence of right artificial knee joint Status: Acute (2) B12 deficiency: Plan: Continue supplementation Code(s): E53.8 - Deficiency of other specified B group vitamins Status: Acute (3) Morbid obesity with BMI of 40.0-44.9, adult: Code(s): E66.01 - Morbid (severe) obesity due to excess calories; Z68.41 - Body mass index [BMI] 40.0-44.9, adult Status: Acute (4) Folate deficiency: Plan: Continue folate Code(s): E53.8 - Deficiency of other specified B group vitamins Status: Acute (5) Atrial fibrillation: Plan: Continue eliquis Code(s): I48.91 - Unspecified atrial fibrillation Status: Acute (6) Hyperlipidemia: Code(s): E78.5 - Hyperlipidemia, unspecified Status: Acute (7) Gout: Plan: Continue allopurinol Code(s): M10.9 - Gout, unspecified Status: Acute (8) TATIANA (obstructive sleep apnea): Code(s): G47.33 - Obstructive sleep apnea (adult) (pediatric) Status: Acute (9) Hypertension: Plan: Continue home regimen TREND BP Code(s): I10 - Essential (primary) hypertension Status: Acute (10) Osteoarthritis: Code(s): M19.90 - Unspecified osteoarthritis, unspecified site Status: Acute (11) Hyponatremia: Plan: Stable, trend Code(s): E87.1 - Hypo-osmolality and hyponatremia Status: Acute Plan 76-year-old male with past medical history as above admitted to the rehabilitation unit with functional impairment status post right total knee arthroplasty complicated by morbid obesity, BMI 43.1 * Notably more edematous bilateral lower extremities, greater on the right. Right lower leg is also very erythematous and hot to touch. Ortho surgery is aware and will assess the patient in a.m. Added additional Lasix 20 mg x 2 days to help with swelling. Continue to hold BP meds for now. * Will recheck labs on Thursday. * Vitals are stable. He is afebrile. * Improving in therapy. Hospitalist to assist with management of comorbid medical conditions Pain control: Tylenol, topical modalities. Minimize opioids. Leonard ice. Bowel and bladder: Bowel regimen in place. Skin: Prevent skin breakdown. Monitor operative site. Sleep: Poor sleep reported. Initiate melatonin and trazodone. DVT prophylaxis: Covered with Eliquis. Functional status: Needs assist Discharge planning: Hopefully home in 1 to 2 weeks. I spent greater than 20 minutes for services, including [id number] encounter with the patient, discussion of the case, plan of care, and exam; and [id number] activities, such as reviewing pertinent retail consultant documentation, recent therapy notes, laboratory and radiology studies, and discussion of case with care team including physician, nursing, therapeutic case manager, and therapists. More than 50 % of time was spent on patient/family counseling or coordination of care. <Tommy Bah Jr, DO - Last Filed: 04/24/22 11:30> Assessment/Plan (1) Status post right knee replacement: (2) B12 deficiency: (3) Morbid obesity with BMI of 40.0-44.9, adult: (4) Folate deficiency: (5) Atrial fibrillation: (6) Hyperlipidemia: (7) Gout: (8) TATIANA (obstructive sleep apnea): (9) Hypertension: (10) Osteoarthritis: (11) Hyponatremia: Plan: I completed a substantive portion of this encounter, the medical decision making portion of this note in its entirety, including Allied health note review, nursing note review, retail consultant note review, discussion with nursing and case management Documented By: Lillian Harris APRN 04/23/22 1 206 Signed By: <Electronically signed by QUYNH Harris> 04/23/22 1231 <Electronically signed by Tommy Bah Jr, DO> 04/24/22 1130 [facility] Work Phone: 1(686) 533-705110-20-2022 Progress note Author Tommy Bah [facility] April 24, 2022 11:29am Note Date/Time April 24, 2022 1 1:29am [facility] [address] [place] [address] Physiatry(Rehab) Progress Note Signed Patient: Al Kuo MR# : [id number] : 1945 Acct:[id number] Age/Sex: 76 / M Adm Date: 2 Loc: Room: 2N6454-8 Type: ADM IN Attending Dr: Delmer Whyte MD Copies to: ~ Date of Service: 04/24/2022 Subjective Subjective Narrative: Recall: Mr. Kuo is a 76-year-old male with past medical history as aboveadmitted to the rehabilitation unit with functional impairment status post righttotal knee arthroplasty complicated by morbid obesity, BMI 43.1. Pain and had progressive right knee pain, which failed conservative management. Robotic assisted right total knee arthroplasty completed on April 14. Postoperative course uncomplicated. Recommended for inpatient rehab by orthopedic surgeon and therapy. Recovery complicated by body habitus as noted. Interval history: Patient seen and examined in room this AM. No acute issues overnight. No concerns this AM. Ortho was in this AM to see patient's operative limb and gives OK to continue therapy program. Otherwise, patient denies CP, SOB, abdominal pain. He is doing well in therapy. Ambulating 204 feet with wheeled walker requiring only supervision. Independent with transfers and bed mobility. Chronic conditions including morbid obesity, hypertension, atrial fibrillation, gout are stable with current management. Exam Physical Exam Vital Signs: Temp Pulse Resp BP Pulse Ox O2 Del Method 98.6 F 62 15 110/67 94 L Room Air 04/24/22 05:00 04/24/22 05:00 04/24/22 05:00 04/24/22 05:00 04/24/22 05:00 04/24/22 09:00 Const General: cooperative, comfortable and no acute distress Orientation: alert, awake and oriented x3 HEENT Head: normocephalic and atraumatic Ears: hearing grossly normal bilaterally Nose: external nose normal Mouth: oral mucosae normal, lip normal and tongue normal Eyes General: appearance normal, both eyes and all related structures Pupils: PERRL EOM: EOM intact bilaterally Chest Chest palpation & inspection: normal inspection of the chest Resp Effort & Inspection: normal respiratory effort, able to speak in complete sentences and symmetric chest movement Auscultation: clear to auscultation bilaterally Cardio Rate: regular rate Rhythm: regular rhythm Heart Sounds: S1 normal and S2 normal Pulses: brachial pulses present GI Inspection: normal to inspection and obesity Palpation: soft and nontender Auscultation: normal bowel sounds Skin General: no rashes or lesions noted Lesions: no lesions Rashes: no rashes Neuro General: patient alert, patient awake, patient oriented x3 and moves all extremities Cognition: normal cognition Motor: strength abnormal Sensory Exam: no sensory deficits noted Psych Appearance: grossly normal Mental Status: mental status grossly normal Affect: normal affect Speech and Movement: speech and movement normal Attitude: cooperative Insight: insight good Judgment: judgment good Objective Labs CBC & Chem 7: 04/21/22 08:48 04/21/22 08:48 Medications and Allergies Allergies and Active Meds: Allergies No Known Allergies Allergy (Verified 03/31/22 13:58) Active Medications Generic Name Dose Route Start Last Admin Trade Name Freq PRN Reason Stop Dose Admin Acetaminophen 500 mg 04/18/22 16:00 Acetaminophen 500 Mg Tablet PO 04/15/23 15:59 Q8H PRN Pain Al Hydrox/Mg Hydrox/Simethicone 30 ml 04/15/22 16:51 Mag Hydrox/Al Hydrox/Simeth 30 Ml Udc PO 04/15/23 16:50 Q4H PRN Indigestion Allopurinol 300 mg 04/16/22 09:00 04/24/22 09:26 Allopurinol 300 Mg Tablet PO 04/16/23 08:59 300 mg QAM NIKOLAS Administration Amlodipine Besylate 2.5 mg 04/19/22 09:00 Amlodipine 2.5 Mg Tablet PO 04/19/23 08:59 DAILY NIKOLAS Apixaban 5 mg 04/15/22 21:00 04/24/22 09:26 Apixaban 5 Mg Tablet PO 04/15/23 20:59 5 mg BID NIKOLAS Administration Ascorbic Acid 500 mg 04/15/22 17:00 04/24/22 09:26 Ascorbic Acid 500 Mg Tablet PO 04/15/23 16:59 500 mg BID.WITH.MEALS NIKOLAS Administration Bisacodyl 10 mg 04/15/22 16:51 Bisacodyl 10 Mg Supp.Rect TN 04/15/23 16:50 DAILY PRN Constipation Carvedilol 25 mg 04/15/22 21:00 04/24/22 09:26 Carvedilol 25 Mg Tablet PO 04/15/23 20:59 25 mg BID NIKOLAS Administration Cyanocobalamin 1,000 mcg 04/16/22 09:00 04/24/22 09:26 Cyanocobalamin 1,000 Mcg Tablet PO 04/16/23 08:59 1,000 mcg QAM NIKOLAS Administration Docusate Sodium 100 mg 04/15/22 16:51 04/20/22 06:36 Docusate 100 Mg Capsule PO 04/15/23 16:50 100 mg BID PRN Administration Constipation Docusate Sodium 283 mg 04/15/22 16:51 Docusate Enema 283 Mg/5 Ml Enema TN 04/15/23 16:50 DAILY PRN Constipation Ferrous Sulfate 324 mg 04/21/22 21:00 04/24/22 09:26 Ferrous Sulfate 324 Mg Tablet. PO 04/21/23 20:59 324 mg BID NIKOLAS Administration Folic Acid 1 mg 04/16/22 09:00 04/24/22 09:26 Folic Acid 1 Mg Tablet PO 04/16/23 08:59 1 mg DAILY NIKOLAS Administration Furosemide 40 mg 04/18/22 08:00 04/24/22 09:26 Furosemide 40 Mg Tablet PO 04/18/23 07:59 40 mg DAILY.8A NIKOLAS Administration Furosemide 20 mg 04/23/22 16:00 04/23/22 16:15 Furosemide 20 Mg Tablet PO 04/25/22 15:59 20 mg DAILY@1600 NIKOLAS Administration Hydralazine HCl 25 mg 04/18/22 21:00 Hydralazine 25 Mg Tablet PO 04/18/23 20:59 BID NIKOLAS Lactulose 30 gm 04/15/22 16:51 04/20/22 15:14 Lactulose 20 Gm/30 Ml Udc PO 04/15/23 16:50 30 gm DAILY PRN Administration Constipation Lisinopril 10 mg 04/19/22 09:00 Lisinopril 10 Mg Tablet PO 04/19/23 08:59 QAM NIKOLAS Melatonin 5 mg 04/16/22 22:00 04/23/22 20:05 Melatonin 5 Mg Tablet PO 04/16/23 21:59 5 mg QHS NIKOLAS Administration Omeprazole 20 mg 04/18/22 11:20 04/24/22 09:26 Omeprazole 20 Mg Capsule. PO 04/18/23 11:19 20 mg DAILY NIKOLAS Administration Ondansetron HCl 8 mg 04/15/22 16:42 Ondansetron Odt 4 Mg Tab.Rapdis PO 04/15/23 16:41 TID PRN Nausea Oxycodone HCl 5 mg 04/15/22 16:42 04/24/22 09:26 Oxycodone Ir 5 Mg Tablet PO 5 mg Q4HR PRN Administration Pain Scale 6 - 10 Polyethylene Glycol 17 gm 04/15/22 16:42 04/19/22 07:53 Polyethylene Glycol 3350 17 Gm Powd.Pack PO 04/15/23 16:41 17 gm DAILY PRN Administration Constipation Senna/Docusate Sodium 2 tab 04/16/22 09:00 04/24/22 09:26 Sennosides/Docusate 8.6-50mg 1 Tab Tablet PO 04/16/23 08:59 2 tab DAILY NIKOLAS Administration Sennosides 2 tab 04/16/22 12:00 04/20/22 06:36 Sennosides 8.6 Mg Tablet PO 04/16/23 11:59 2 tab DAILY@12 PRN Administration If no BM in 2 days Sodium Chloride 0 ml 04/15/22 16:51 04/21/22 10:10 Sodium Chloride 0.9 % 10 Ml Syringe IV-PUSH 04/15/23 16:50 10 ml PRN PRN Administration Flush Spironolactone 25 mg 04/16/22 09:00 04/24/22 09:26 Spironolactone 25 Mg Tablet PO 04/16/23 08:59 25 mg QAM NIKOLAS Administration Trazodone HCl 50 mg 04/18/22 10:41 04/23/22 20:05 Trazodone 50 Mg Tablet PO 04/16/23 21:59 50 mg QHS PRN Administration Insomnia Vitamin D 125 mcg 04/16/22 09:00 04/24/22 09:27 Cholecalciferol 125 Mcg (5,000 Units) Capsule PO 04/16/23 08:59 125 mcg DAILY NIKOLAS Administration Assessment/Plan Assessment/Plan (1) Status post right knee replacement: Plan: PT to improve pt's strength, endurance, bed mobility, transfers (sit-stand), standing balance, gait quality on level surfaces and stairs, coordination and functional ADL skills. Will also work to improve pt's safety awareness during transfers and ambulation. OT for basic ADL re-training (bathing, dressing, toileting, continence, grooming, feeding, transferring), to increase activity tolerance and functional mobility and to evaluate for adaptive and assistive devices. Will work to improve pt's endurance and educate pt on fall prevention and energy conservationtechniques-pacing strategies and proper breathing techniques during functional tasks. Patient education Pressure ulcer prophylaxis; encourage mobilization, frequent postural changes, pressure-relief techniques DVT prophylaxis Encourage deep breathing exercise incentive spirometry. Monitor bladder. Toileting schedule. Continue current bladder management, with scans as needed and CIC if needed. Start bowel care program every day to obtain continence, prevent ileus. Maintain fall precautions Gait and balance retraining Provision of the necessary gait aids and functional adaptive equipment to enhance the patient's a functional latter-day Encourage deep breathing exercises and incentive spirometry RD evaluation Ensure adequate nutrition and hydration Discharge planning. Code(s): Z96.651 - Presence of right artificial knee joint Status: Acute (2) B12 deficiency: Plan: Continue supplementation Code(s): E53.8 - Deficiency of other specified B group vitamins Status: Acute (3) Morbid obesity with BMI of 40.0-44.9, adult: Code(s): E66.01 - Morbid (severe) obesity due to excess calories; Z68.41 - Body mass index [BMI] 40.0-44.9, adult Status: Acute (4) Folate deficiency: Plan: Continue folate Code(s): E53.8 - Deficiency of other specified B group vitamins Status: Acute (5) Atrial fibrillation: Plan: Continue eliquis Code(s): I48.91 - Unspecified atrial fibrillation Status: Acute (6) Hyperlipidemia: Code(s): E78.5 - Hyperlipidemia, unspecified Status: Acute (7) Gout: Plan: Continue allopurinol Code(s): M10.9 - Gout, unspecified Status: Acute (8) TATIANA (obstructive sleep apnea): Code(s): G47.33 - Obstructive sleep apnea (adult) (pediatric) Status: Acute (9) Hypertension: Plan: Continue home regimen TREND BP Code(s): I10 - Essential (primary) hypertension Status: Acute (10) Osteoarthritis: Code(s): M19.90 - Unspecified osteoarthritis, unspecified site Status: Acute (11) Hyponatremia: Plan: Stable, trend Code(s): E87.1 - Hypo-osmolality and hyponatremia Status: Acute Plan 76-year-old male with past medical history as above admitted to the rehabilitation unit with functional impairment status post right total knee arthroplasty complicated by morbid obesity, BMI 43.1 * Ortho in to see patient's operative limb this AM. Edema is baseline, per documentation. No further treatments at this time. Will continue to monitor. * Will recheck labs on Thursday. * Vitals are stable. He is afebrile. * Improving in therapy. Hospitalist to assist with management of comorbid medical conditions Pain control: Tylenol, topical modalities. Minimize opioids. Leonard ice. Bowel and bladder: Bowel regimen in place. Skin: Prevent skin breakdown. Monitor operative site. Sleep: Poor sleep reported. Initiate melatonin and trazodone. DVT prophylaxis: Covered with Eliquis. Functional status: Needs assist Discharge planning: Hopefully home in 1 to 2 weeks. Documented By: Tommy Bah Jr, DO 2 1126 Signed By: <Electronically signed by Tommy Bah Jr, DO> 04/24/22 1129 [facility] Work Phone: 1([phone]) 141-831410-20-2022 Progress note Author Andrea Govea [facility] April 24, 2022 7:07am Note Date/Time April 24, 2022 7 :07am [facility] [address] [place] [address] Orthopedic Progress Note Signed Patient: Al Kuo MR# : [id number] : 1945 Acct:[id number] Age/Sex: 76 / M Adm Date: 2 Loc: Room: [address] [place] [address] Type: ADM IN Attending Dr: Delmer Whyte MD Copies to: ~ Date of Service: 04/24/2022 Subjective Subjective Interval History: Patient is resting comfortably in his bed this morning. He says that when just lying in bed the knee feels pretty good. When he is up working on therapy he says he gets a little sore. He tells me that the therapist has told him he is past 90 degrees with his flexion but he feels like and has been told by therapy that he is not quite straight. Exam Physical Exam Vital Signs: Temp Pulse Resp BP Pulse Ox O2 Del Method 98.6 F 62 15 110/67 94 L Room Air 04/24/22 05:00 04/24/22 05:00 04/24/22 05:00 04/24/22 05:00 04/24/22 05:00 04/24/22 05:00 Narrative: Right knee Prevena dressing is on and working. No drainage in the container. Gauze dressing intact over the tibial tracker pin sites. No areas concerning for drainage coming out of the pin sites. Lymphedema present, similar to baseline. I do not appreciate any significant erythema into the proximal leg ordistal knee area. Passively patient is lacking maybe 5 or even 10 degrees of full extension but does have at least 90 degrees of flexion. Assessment / Plan Assessment and plan (1) Status post right knee replacement: Plan: POD 10 status post R TKA 1. Pain control 2. DVT prophylaxis: KARL Hose bilaterally, SCDs bilaterally, and home Eliquis 3. Perioperative antibiotics completed 4. PT/OT: WBAT right lower extremity 5. Appreciate hospitalist assistance with medical management 6. Hemoglobin: 9.3 on 04/21. Continue iron and vitamin C 7. Hypoalbuminemia of 2.6 on 04/16. Continue protein supplementation and nutrition education. 8. Today's plan: Overall I think his knee looks good and I am not concerned for any increased erythema at this time. Recommend continued supportive care for his lymphedema and possibly even getting the compression stockings up over his knee to help with some of his overall swelling. 9. Follow-up with me in the office at 2 to 2-1/2 weeks postop as regularly scheduled.? If the patient is still in the rehab unit when his Prevena is ready to come off, please remove it and notify me of its removal.? Please leave the Zipline in place.? If he is discharged from the rehab unit prior to the Prevena running out of battery, please have home health physical therapy remove the Blanca prior to his postop follow-up with me in the office.? Please call with any questions or concerns. Code(s): Z96.651 - Presence of right artificial knee joint Status: Acute (2) B12 deficiency: Code(s): E53.8 - Deficiency of other specified B group vitamins Status: Acute (3) Morbid obesity with BMI of 40.0-44.9, adult: Code(s): E66.01 - Morbid (severe) obesity due to excess calories; Z68.41 - Body mass index [BMI] 40.0-44.9, adult Status: Acute (4) Folate deficiency: Code(s): E53.8 - Deficiency of other specified B group vitamins Status: Acute (5) Atrial fibrillation: Code(s): I48.91 - Unspecified atrial fibrillation Status: Acute (6) Hyperlipidemia: Code(s): E78.5 - Hyperlipidemia, unspecified Status: Acute (7) Gout: Code(s): M10.9 - Gout, unspecified Status: Acute (8) TATIANA (obstructive sleep apnea): Code(s): G47.33 - Obstructive sleep apnea (adult) (pediatric) Status: Acute (9) Hypertension: Code(s): I10 - Essential (primary) hypertension Status: Acute (10) Osteoarthritis: Code(s): M19.90 - Unspecified osteoarthritis, unspecified site Status: Acute (11) Hyponatremia: Code(s): E87.1 - Hypo-osmolality and hyponatremia Status: Acute Documented By: Andrea Govea MD 04/24/22 07 02 Signed By: <Electronically signed by Andrea Govea MD> 04/24/[address] [place] [address] Ctr Work Phone: 1(909) 627-520210-18-2022 Progress note Author Tommy Bah [facility] April 22, 2022 11:44am Note Date/Time April 22, 2022 1 1:44am [facility] [address] [place] [address] Physiatry(Rehab) Progress Note Signed Patient: Al Kuo MR# : [id number] : 1945 Acct:[id number] Age/Sex: 76 / M Adm Date: 2 Loc: Room: 4H9032-3 Type: ADM IN Attending Dr: Delmer Whyte MD Copies to: ~ Date of Service: 04/22/2022 Subjective Subjective Narrative: Recall: Mr. Kuo is a 76-year-old male with past medical history as aboveadmitted to the rehabilitation unit with functional impairment status post righttotal knee arthroplasty complicated by morbid obesity, BMI 43.1. Pain and had progressive right knee pain, which failed conservative management. Robotic assisted right total knee arthroplasty completed on April 14. Postoperative course uncomplicated. Recommended for inpatient rehab by orthopedic surgeon and therapy. Recovery complicated by body habitus as noted. Interval history: Patient seen and examined in his room this AM. No acute issues overnight. No concerns this AM. Pain more controlled Denies CP, SOB, abdominal pain. Recent Venous duplex showing no DVT Continue POC Chronic conditions including morbid obesity, hypertension, atrial fibrillation, gout are stable with current management. Exam Physical Exam Vital Signs: Temp Pulse Resp BP Pulse Ox O2 Del Method 98.4 F 65 17 122/64 92 L Room Air 04/22/22 08:21 04/22/22 08:21 04/22/22 08:21 04/22/22 08:21 04/22/22 08:21 04/22/22 08:21 Const General: cooperative, comfortable and no acute distress Orientation: alert, awake and oriented x3 HEENT Head: normocephalic and atraumatic Ears: hearing grossly normal bilaterally Nose: external nose normal Mouth: oral mucosae normal, lip normal and tongue normal Eyes General: appearance normal, both eyes and all related structures Pupils: PERRL EOM: EOM intact bilaterally Chest Chest palpation & inspection: normal inspection of the chest Resp Effort & Inspection: normal respiratory effort, able to speak in complete sentences and symmetric chest movement Auscultation: clear to auscultation bilaterally Cardio Rate: regular rate Rhythm: regular rhythm Heart Sounds: S1 normal and S2 normal Pulses: brachial pulses present GI Inspection: normal to inspection and obesity Palpation: soft and nontender Auscultation: normal bowel sounds Skin General: no rashes or lesions noted Lesions: no lesions Rashes: no rashes Neuro General: patient alert, patient awake, patient oriented x3 and moves all extremities Cognition: normal cognition Motor: strength abnormal Sensory Exam: no sensory deficits noted Psych Appearance: grossly normal Mental Status: mental status grossly normal Affect: normal affect Speech and Movement: speech and movement normal Attitude: cooperative Insight: insight good Judgment: judgment good Objective Labs CBC & Chem 7: 04/21/22 08:48 04/21/22 08:48 Medications and Allergies Allergies and Active Meds: Allergies No Known Allergies Allergy (Verified 03/31/22 13:58) Active Medications Generic Name Dose Route Start Last Admin Trade Name Freq PRN Reason Stop Dose Admin Acetaminophen 500 mg 04/18/22 16:00 Acetaminophen 500 Mg Tablet PO 04/15/23 15:59 Q8H PRN Pain Al Hydrox/Mg Hydrox/Simethicone 30 ml 04/15/22 16:51 Mag Hydrox/Al Hydrox/Simeth 30 Ml Udc PO 04/15/23 16:50 Q4H PRN Indigestion Allopurinol 300 mg 04/16/22 09:00 04/22/22 08:29 Allopurinol 300 Mg Tablet PO 04/16/23 08:59 300 mg QAM NIKOLAS Administration Amlodipine Besylate 2.5 mg 04/19/22 09:00 Amlodipine 2.5 Mg Tablet PO 04/19/23 08:59 DAILY NIKOLAS Apixaban 5 mg 04/15/22 21:00 04/22/22 08:30 Apixaban 5 Mg Tablet PO 04/15/23 20:59 5 mg BID NIKOLAS Administration Ascorbic Acid 500 mg 04/15/22 17:00 04/22/22 08:29 Ascorbic Acid 500 Mg Tablet PO 04/15/23 16:59 500 mg BID.WITH.MEALS NIKOLAS Administration Bisacodyl 10 mg 04/15/22 16:51 Bisacodyl 10 Mg Supp.Rect TN 04/15/23 16:50 DAILY PRN Constipation Carvedilol 25 mg 04/15/22 21:00 04/22/22 08:29 Carvedilol 25 Mg Tablet PO 04/15/23 20:59 25 mg BID NIKOLAS Administration Cefadroxil 500 mg 04/15/22 21:00 04/22/22 08:28 Cefadroxil 500 Mg Capsule PO 04/22/22 23:59 500 mg BID NIKOLAS Administration Cyanocobalamin 1,000 mcg 04/16/22 09:00 04/22/22 08:29 Cyanocobalamin 1,000 Mcg Tablet PO 04/16/23 08:59 1,000 mcg QAM NIKOLAS Administration Docusate Sodium 100 mg 04/15/22 16:51 04/20/22 06:36 Docusate 100 Mg Capsule PO 04/15/23 16:50 100 mg BID PRN Administration Constipation Docusate Sodium 283 mg 04/15/22 16:51 Docusate Enema 283 Mg/5 Ml Enema TN 04/15/23 16:50 DAILY PRN Constipation Ferrous Sulfate 324 mg 04/21/22 21:00 04/22/22 08:29 Ferrous Sulfate 324 Mg Tablet.Dr PO 04/21/23 20:59 324 mg BID NIKOLAS Administration Folic Acid 1 mg 04/16/22 09:00 04/22/22 08:30 Folic Acid 1 Mg Tablet PO 04/16/23 08:59 1 mg DAILY NIKOLAS Administration Furosemide 40 mg 04/18/22 08:00 04/22/22 08:29 Furosemide 40 Mg Tablet PO 04/18/23 07:59 40 mg DAILY.8A NIKOLAS Administration Hydralazine HCl 25 mg 04/18/22 21:00 Hydralazine 25 Mg Tablet PO 04/18/23 20:59 BID NIKOLAS Lactulose 30 gm 04/15/22 16:51 04/20/22 15:14 Lactulose 20 Gm/30 Ml Udc PO 04/15/23 16:50 30 gm DAILY PRN Administration Constipation Lisinopril 10 mg 04/19/22 09:00 Lisinopril 10 Mg Tablet PO 04/19/23 08:59 QAM NIKOLAS Melatonin 5 mg 04/16/22 22:00 04/21/22 21:26 Melatonin 5 Mg Tablet PO 04/16/23 21:59 5 mg QHS NIKOLAS Administration Omeprazole 20 mg 04/18/22 11:20 04/22/22 08:29 Omeprazole 20 Mg Capsule.Dr PO 04/18/23 11:19 20 mg DAILY NIKOLAS Administration Ondansetron HCl 8 mg 04/15/22 16:42 Ondansetron Odt 4 Mg Tab.Rapdis PO 04/15/23 16:41 TID PRN Nausea Oxycodone HCl 5 mg 04/15/22 16:42 04/22/22 08:33 Oxycodone Ir 5 Mg Tablet PO 5 mg Q4HR PRN Administration Pain Scale 6 - 10 Polyethylene Glycol 17 gm 04/15/22 16:42 04/19/22 07:53 Polyethylene Glycol 3350 17 Gm Powd.Pack PO 04/15/23 16:41 17 gm DAILY PRN Administration Constipation Senna/Docusate Sodium 2 tab 04/16/22 09:00 04/22/22 08:29 Sennosides/Docusate 8.6-50mg 1 Tab Tablet PO 04/16/23 08:59 2 tab DAILY NIKOLAS Administration Sennosides 2 tab 04/16/22 12:00 04/20/22 06:36 Sennosides 8.6 Mg Tablet PO 04/16/23 11:59 2 tab DAILY@12 PRN Administration If no BM in 2 days Sodium Chloride 0 ml 04/15/22 16:51 04/21/22 10:10 Sodium Chloride 0.9 % 10 Ml Syringe IV-PUSH 04/15/23 16:50 10 ml PRN PRN Administration Flush Sodium Chloride 10 ml 04/17/22 22:00 04/22/22 05:52 Sodium Chloride 0.9 % 10 Ml Syringe IV-PUSH 04/17/23 21:59 10 ml Q8H NIKOLAS Administration Spironolactone 25 mg 04/16/22 09:00 04/22/22 08:28 Spironolactone 25 Mg Tablet PO 04/16/23 08:59 25 mg QAM NIKOLAS Administration Trazodone HCl 50 mg 04/18/22 10:41 04/18/22 22:10 Trazodone 50 Mg Tablet PO 04/16/23 21:59 50 mg QHS PRN Administration Insomnia Vitamin D 125 mcg 04/16/22 09:00 04/22/22 08:30 Cholecalciferol 125 Mcg (5,000 Units) Capsule PO 04/16/23 08:59 125 mcg DAILY NIKOLAS Administration Assessment/Plan Assessment/Plan (1) Status post right knee replacement: Plan: PT to improve pt's strength, endurance, bed mobility, transfers (sit-stand), standing balance, gait quality on level surfaces and stairs, coordination and functional ADL skills. Will also work to improve pt's safety awareness during transfers and ambulation. OT for basic ADL re-training (bathing, dressing, toileting, continence, grooming, feeding, transferring), to increase activity tolerance and functional mobility and to evaluate for adaptive and assistive devices. Will work to improve pt's endurance and educate pt on fall prevention and energy conservationtechniques-pacing strategies and proper breathing techniques during functional tasks. Patient education Pressure ulcer prophylaxis; encourage mobilization, frequent postural changes, pressure-relief techniques DVT prophylaxis Encourage deep breathing exercise incentive spirometry. Monitor bladder. Toileting schedule. Continue current bladder management, with scans as needed and CIC if needed. Start bowel care program every day to obtain continence, prevent ileus. Maintain fall precautions Gait and balance retraining Provision of the necessary gait aids and functional adaptive equipment to enhance the patient's a functional latter-day Encourage deep breathing exercises and incentive spirometry RD evaluation Ensure adequate nutrition and hydration Discharge planning. Code(s): Z96.651 - Presence of right artificial knee joint Status: Acute (2) B12 deficiency: Plan: Continue supplementation Code(s): E53.8 - Deficiency of other specified B group vitamins Status: Acute (3) Morbid obesity with BMI of 40.0-44.9, adult: Code(s): E66.01 - Morbid (severe) obesity due to excess calories; Z68.41 - Body mass index [BMI] 40.0-44.9, adult Status: Acute (4) Folate deficiency: Plan: Continue folate Code(s): E53.8 - Deficiency of other specified B group vitamins Status: Acute (5) Atrial fibrillation: Plan: Continue eliquis Code(s): I48.91 - Unspecified atrial fibrillation Status: Acute (6) Hyperlipidemia: Code(s): E78.5 - Hyperlipidemia, unspecified Status: Acute (7) Gout: Plan: Continue allopurinol Code(s): M10.9 - Gout, unspecified Status: Acute (8) TATIANA (obstructive sleep apnea): Code(s): G47.33 - Obstructive sleep apnea (adult) (pediatric) Status: Acute (9) Hypertension: Plan: Continue home regimen TREND BP Code(s): I10 - Essential (primary) hypertension Status: Acute (10) Osteoarthritis: Code(s): M19.90 - Unspecified osteoarthritis, unspecified site Status: Acute (11) Hyponatremia: Plan: Stable, trend Code(s): E87.1 - Hypo-osmolality and hyponatremia Status: Acute Plan 76-year-old male with past medical history as above admitted to the rehabilitation unit with functional impairment status post right total knee arthroplasty complicated by morbid obesity, BMI 43.1 * IV albumin per hospitalist * Improved BP and tolerance to therapy * Recent Venous duplex negative. * Ongoing pain control. * Appropriate participation with therapies. Hospitalist to assist with management of comorbid medical conditions Pain control: Tylenol, topical modalities. Minimize opioids. Leonard ice. Bowel and bladder: Bowel regimen in place. Skin: Prevent skin breakdown. Monitor operative site. Sleep: Poor sleep reported. Initiate melatonin and trazodone. DVT prophylaxis: Covered with Eliquis. Functional status: Needs assist Discharge planning: Hopefully home in 1 to 2 weeks. Documented By: Tommy Bah Jr, DO 2 1142 Signed By: <Electronically signed by Tommy Bah Jr, DO> 04/22/22 1144 [facility] Work Phone: 1(286) 942-357710-17-2022 Progress note Author Tommy Bah [facility] April 21, 2022 10:46am Note Date/Time April 21, 2022 1 0:44am [facility] [address] [place] [address] Physiatry(Rehab) Progress Note Signed Patient: Al Kuo MR# : [id number] : 1945 Acct:[id number] Age/Sex: 76 / M Adm Date: 2 Loc: Room: 5V5824-9 Type: ADM IN Attending Dr: Delmer Whyte MD Copies to: ~ Date of Service: 04/21/2022 Subjective Subjective Narrative: Recall: Mr. Kuo is a 76-year-old male with past medical history as aboveadmitted to the rehabilitation unit with functional impairment status post righttotal knee arthroplasty complicated by morbid obesity, BMI 43.1. Pain and had progressive right knee pain, which failed conservative management. Robotic assisted right total knee arthroplasty completed on April 14. Postoperative course uncomplicated. Recommended for inpatient rehab by orthopedic surgeon and therapy. Recovery complicated by body habitus as noted. Interval history: Patient seen and examined in his room this AM. No acute issues over the weekend. No concerns this AM. Wearing ice pack to R knee. Denies CP, SOB, abdominal pain. Venous duplex no DVT Initiated on some albumin by hospitalist BP meds adjusted Less symptomatic today, ambulated 75'. Pain controlled Continue POC Chronic conditions including morbid obesity, hypertension, atrial fibrillation, gout are stable with current management. Exam Physical Exam Vital Signs: Temp Pulse Resp BP Pulse Ox O2 Del Method 98.4 F 104 H 16 115/70 93 L Room Air 04/21/22 05:00 04/21/22 07:51 04/21/22 05:00 04/21/22 07:51 04/21/22 07:51 04/21/22 07:51 Const General: cooperative, comfortable and no acute distress Orientation: alert, awake and oriented x3 HEENT Head: normocephalic and atraumatic Ears: hearing grossly normal bilaterally Nose: external nose normal Mouth: oral mucosae normal, lip normal and tongue normal Eyes General: appearance normal, both eyes and all related structures Pupils: PERRL EOM: EOM intact bilaterally Chest Chest palpation & inspection: normal inspection of the chest Resp Effort & Inspection: normal respiratory effort, able to speak in complete sentences and symmetric chest movement Auscultation: clear to auscultation bilaterally Cardio Rate: regular rate Rhythm: regular rhythm Heart Sounds: S1 normal and S2 normal Pulses: brachial pulses present GI Inspection: normal to inspection and obesity Palpation: soft and nontender Auscultation: normal bowel sounds Other: No khalil Skin General: no rashes or lesions noted Lesions: no lesions Rashes: no rashes Neuro General: patient alert, patient awake, patient oriented x3 and moves all extremities Cognition: normal cognition Motor: strength abnormal Sensory Exam: no sensory deficits noted Extrem Other: Ice to R knee Psych Appearance: grossly normal Mental Status: mental status grossly normal Affect: normal affect Speech and Movement: speech and movement normal Attitude: cooperative Insight: insight good Judgment: judgment good Objective Labs CBC & Chem 7: 04/21/22 08:48 04/21/22 08:48 Labs: Laboratory Results - last 24 hr 04/21/22 04/21/22 08:48 08:48 Corrected WBC 10.5 Uncorrected WBC Count 10.5 RBC 2.59 L Hgb 9.3 L Hct 27.0 L MCV 104.0 H MCH 36.0 H MCHC 34.6 RDW 14.2 Plt Count 180 MPV 7.9 Neut % (Auto) 83.2 Lymph % (Auto) 5.6 [place] % (Auto) 8.5 Eos % (Auto) 2.4 Baso % (Auto) 0.3 Neut # (Auto) 8.7 H Lymph # (Auto) 0.6 L [place] # (Auto) 0.9 H Eos # (Auto) 0.3 Baso # (Auto) 0.0 Nucleated RBC % (auto) 0.1 PHA Creatinine Clear 71.71 Sodium 134 L Potassium 3.7 Chloride 99 Carbon Dioxide 26.3 Anion Gap 12.4 BUN 24 H Creatinine 1.19 Est GFR ( Amer) > 60 Est GFR (Non-Af Amer) 59 Glucose 145 H Calcium 8.7 Medications and Allergies Allergies and Active Meds: Allergies No Known Allergies Allergy (Verified 03/31/22 13:58) Active Medications Generic Name Dose Route Start Last Admin Trade Name [place] PRN Reason Stop Dose Admin Acetaminophen 500 mg 04/18/22 16:00 Acetaminophen 500 Mg Tablet PO 04/15/23 15:59 Q8H PRN Pain Al Hydrox/Mg Hydrox/Simethicone 30 ml 04/15/22 16:51 Mag Hydrox/Al Hydrox/Simeth 30 Ml Udc PO 04/15/23 16:50 Q4H PRN Indigestion Allopurinol 300 mg 04/16/22 09:00 04/21/22 08:20 Allopurinol 300 Mg Tablet PO 04/16/23 08:59 Not Given QAM [facility] Amlodipine Besylate 2.5 mg 04/19/22 09:00 Amlodipine 2.5 Mg Tablet PO 04/19/23 08:59 DAILY NIKOLAS Apixaban 5 mg 04/15/22 21:00 04/21/22 08:20 Apixaban 5 Mg Tablet PO 04/15/23 20:59 Not Given BID NIKOLAS Ascorbic Acid 500 mg 04/15/22 17:00 04/21/22 07:46 Ascorbic Acid 500 Mg Tablet PO 04/15/23 16:59 500 mg BID.WITH.MEALS NIKOLAS Administration Bisacodyl 10 mg 04/15/22 16:51 Bisacodyl 10 Mg Supp.Rect TN 04/15/23 16:50 DAILY PRN Constipation Carvedilol 25 mg 04/15/22 21:00 04/21/22 08:20 Carvedilol 25 Mg Tablet PO 04/15/23 20:59 Not Given BID NIKOLAS Cefadroxil 500 mg 04/15/22 21:00 04/21/22 08:21 Cefadroxil 500 Mg Capsule PO 04/22/22 23:59 Not Given BID [facility] Cyanocobalamin 1,000 mcg 04/16/22 09:00 04/21/22 08:21 Cyanocobalamin 1,000 Mcg Tablet PO 04/16/23 08:59 Not Given QAM NIKOLAS Docusate Sodium 100 mg 04/15/22 16:51 04/20/22 06:36 Docusate 100 Mg Capsule PO 04/15/23 16:50 100 mg BID PRN Administration Constipation Docusate Sodium 283 mg 04/15/22 16:51 Docusate Enema 283 Mg/5 Ml Enema TN 04/15/23 16:50 DAILY PRN Constipation Ferrous Sulfate 324 mg 04/21/22 21:00 Ferrous Sulfate 324 Mg Tablet. PO 04/21/23 20:59 BID NIKOLAS Folic Acid 1 mg 04/16/22 09:00 04/21/22 08:21 Folic Acid 1 Mg Tablet PO 04/16/23 08:59 Not Given DAILY NIKOLAS Furosemide 40 mg 04/18/22 08:00 04/21/22 07:46 Furosemide 40 Mg Tablet PO 04/18/23 07:59 40 mg DAILY.8A NIKOLAS Administration Hydralazine HCl 25 mg 04/18/22 21:00 Hydralazine 25 Mg Tablet PO 04/18/23 20:59 BID NIKOLAS Lactulose 30 gm 04/15/22 16:51 04/20/22 15:14 Lactulose 20 Gm/30 Ml Udc PO 04/15/23 16:50 30 gm DAILY PRN Administration Constipation Lisinopril 10 mg 04/19/22 09:00 Lisinopril 10 Mg Tablet PO 04/19/23 08:59 QAM NIKOLAS Melatonin 5 mg 04/16/22 22:00 04/20/22 22:05 Melatonin 5 Mg Tablet PO 04/16/23 21:59 5 mg QHS NIKOLAS Administration Omeprazole 20 mg 04/18/22 11:20 04/21/22 08:21 Omeprazole 20 Mg Capsule. PO 04/18/23 11:19 Not Given DAILY NIKOLAS Ondansetron HCl 8 mg 04/15/22 16:42 Ondansetron Odt 4 Mg Tab.Rapdis PO 04/15/23 16:41 TID PRN Nausea Oxycodone HCl 5 mg 04/15/22 16:42 04/20/22 22:05 Oxycodone Ir 5 Mg Tablet PO 5 mg Q4HR PRN Administration Pain Scale 6 - 10 Polyethylene Glycol 17 gm 04/15/22 16:42 04/19/22 07:53 Polyethylene Glycol 3350 17 Gm Powd.Pack PO 04/15/23 16:41 17 gm DAILY PRN Administration Constipation Senna/Docusate Sodium 2 tab 04/16/22 09:00 04/21/22 08:21 Sennosides/Docusate 8.6-50mg 1 Tab Tablet PO 04/16/23 08:59 Not Given DAILY NIKOLAS Sennosides 2 tab 04/16/22 12:00 04/20/22 06:36 Sennosides 8.6 Mg Tablet PO 04/16/23 11:59 2 tab DAILY@12 PRN Administration If no BM in 2 days Sodium Chloride 0 ml 04/15/22 16:51 04/21/22 10:10 Sodium Chloride 0.9 % 10 Ml Syringe IV-PUSH 04/15/23 16:50 10 ml PRN PRN Administration Flush Sodium Chloride 10 ml 04/17/22 22:00 04/21/22 06:35 Sodium Chloride 0.9 % 10 Ml Syringe IV-PUSH 04/17/23 21:59 10 ml Q8H NIKOLAS Administration Spironolactone 25 mg 04/16/22 09:00 04/21/22 08:21 Spironolactone 25 Mg Tablet PO 04/16/23 08:59 Not Given QAM NIKOLAS Trazodone HCl 50 mg 04/18/22 10:41 04/18/22 22:10 Trazodone 50 Mg Tablet PO 04/16/23 21:59 50 mg QHS PRN Administration Insomnia Vitamin D 125 mcg 04/16/22 09:00 04/21/22 08:21 Cholecalciferol 125 Mcg (5,000 Units) Capsule PO 04/16/23 08:59 Not Given DAILY NIKOLAS Assessment/Plan Assessment/Plan (1) Status post right knee replacement: Plan: PT to improve pt's strength, endurance, bed mobility, transfers (sit-stand), standing balance, gait quality on level surfaces and stairs, coordination and functional ADL skills. Will also work to improve pt's safety awareness during transfers and ambulation. OT for basic ADL re-training (bathing, dressing, toileting, continence, grooming, feeding, transferring), to increase activity tolerance and functional mobility and to evaluate for adaptive and assistive devices. Will work to improve pt's endurance and educate pt on fall prevention and energy conservationtechniques-pacing strategies and proper breathing techniques during functional tasks. Patient education Pressure ulcer prophylaxis; encourage mobilization, frequent postural changes, pressure-relief techniques DVT prophylaxis Encourage deep breathing exercise incentive spirometry. Monitor bladder. Toileting schedule. Continue current bladder management, with scans as needed and CIC if needed. Start bowel care program every day to obtain continence, prevent ileus. Maintain fall precautions Gait and balance retraining Provision of the necessary gait aids and functional adaptive equipment to enhance the patient's a functional latter-day Encourage deep breathing exercises and incentive spirometry RD evaluation Ensure adequate nutrition and hydration Discharge planning. Code(s): Z96.651 - Presence of right artificial knee joint Status: Acute (2) B12 deficiency: Plan: Continue supplementation Code(s): E53.8 - Deficiency of other specified B group vitamins Status: Acute (3) Morbid obesity with BMI of 40.0-44.9, adult: Code(s): E66.01 - Morbid (severe) obesity due to excess calories; Z68.41 - Body mass index [BMI] 40.0-44.9, adult Status: Acute (4) Folate deficiency: Plan: Continue folate Code(s): E53.8 - Deficiency of other specified B group vitamins Status: Acute (5) Atrial fibrillation: Plan: Continue eliquis Code(s): I48.91 - Unspecified atrial fibrillation Status: Acute (6) Hyperlipidemia: Code(s): E78.5 - Hyperlipidemia, unspecified Status: Acute (7) Gout: Plan: Continue allopurinol Code(s): M10.9 - Gout, unspecified Status: Acute (8) TATIANA (obstructive sleep apnea): Code(s): G47.33 - Obstructive sleep apnea (adult) (pediatric) Status: Acute (9) Hypertension: Plan: Continue home regimen TREND BP Code(s): I10 - Essential (primary) hypertension Status: Acute (10) Osteoarthritis: Code(s): M19.90 - Unspecified osteoarthritis, unspecified site Status: Acute (11) Hyponatremia: Plan: Stable, trend Code(s): E87.1 - Hypo-osmolality and hyponatremia Status: Acute Plan 76-year-old male with past medical history as above admitted to the rehabilitation unit with functional impairment status post right total knee arthroplasty complicated by morbid obesity, BMI 43.1 * IV albumin per hospitalist * Improved BP and tolerance to therapy today * Venous duplex negative. * Ongoing pain control. * Appropriate participation with therapies. Hospitalist to assist with management of comorbid medical conditions Pain control: Tylenol, topical modalities. Minimize opioids. Leonard ice. Bowel and bladder: Bowel regimen in place. Skin: Prevent skin breakdown. Monitor operative site. Sleep: Poor sleep reported. Initiate melatonin and trazodone. DVT prophylaxis: Covered with Eliquis. Functional status: Needs assist Discharge planning: Hopefully home in 1 to 2 weeks. Documented By: Tommy Bah Jr, 2 1041 Signed By: <Electronically signed by Tommy Bah Jr, DO> 04/21/22 10[address] [facility] Work Phone: 1(402) 548-363510-15-2022 Progress note Author Rain Ramos [facility] April 19, 2022 9:32am Note Date/Time April 19, 2022 9 :32am [facility] [address] [place] [address] Hospitalist Progress Note Signed Patient: Al Kuo MR# : [id number] : 1945 Acct:[id number] Age/Sex: 76 / M Adm Date: 2 Loc: Room: 9T5628-9 Type: ADM IN Attending Dr: Delmer Whyte MD Copies to: ~ Date of Service: 04/19/2022 Subjective Subjective Narrative: I evaluated the patient in the therapy room. He is sitting in the chair. He iscomfortable. No distress. He denies any chest or abdominal pain. No nausea orvomiting. No headaches, loss of conscious or seizure Exam Physical Exam Vital Signs: Temp Pulse Resp BP Pulse Ox O2 Del Method 98.8 F 99 H 20 110/72 92 L Room Air 04/19/22 06:50 04/19/22 06:50 04/19/22 06:50 04/19/22 06:50 04/19/22 06:50 04/19/22 06:50 Narrative: [pt is awake and alert. oriented to place, time and person. Patient is obese HEENT: [place] conjunctiva and NL buccal mucosa Neck: Supple, no tenderness Endocrine: No Thyromegaly. Vascular: No JVD or carotid bruit. Lymphatic: No cervical lymphadenopathy. Chest: CTA no DTP. Heart RRR, no extra sound or murmur. Abd: Soft, no tenderness, no rebound and no rigidity. Increase abd girth therefore clinically I could not exclude the possibility of intra abd mass or organomegaly. LE: No cyanosis or clubbing, no varices. +2 pitting edema in both legs. Neuro: A A O. Nl speech, comprehension and attention. Nl and symetrical motor and tone examination through out. []] Objective Lab Results CBC & Chem 7: 04/19/22 06:15 04/17/22 11:58 Meds Allergies and Active Meds Allergies No Known Allergies Allergy (Verified 03/31/22 13:58) Active Meds: Active Medications Generic Name Dose Route Start Last Admin Trade Name Freq PRN Reason Stop Dose Admin Acetaminophen 500 mg 04/18/22 16:00 Acetaminophen 500 Mg Tablet PO 04/15/23 15:59 Q8H PRN Pain Al Hydrox/Mg Hydrox/Simethicone 30 ml 04/15/22 16:51 Mag Hydrox/Al Hydrox/Simeth 30 Ml Udc PO 04/15/23 16:50 Q4H PRN Indigestion Allopurinol 300 mg 04/16/22 09:00 04/18/22 07:59 Allopurinol 300 Mg Tablet PO 04/16/23 08:59 300 mg QAM NIKOLAS Administration Amlodipine Besylate 2.5 mg 04/19/22 09:00 Amlodipine 2.5 Mg Tablet PO 04/19/23 08:59 DAILY NIKOLAS Apixaban 5 mg 04/15/22 21:00 04/18/22 22:10 Apixaban 5 Mg Tablet PO 04/15/23 20:59 5 mg BID NIKOLAS Administration Ascorbic Acid 500 mg 04/15/22 17:00 04/19/22 07:53 Ascorbic Acid 500 Mg Tablet PO 04/15/23 16:59 500 mg BID.WITH.MEALS NIKOLAS Administration Bisacodyl 10 mg 04/15/22 16:51 Bisacodyl 10 Mg Supp.Rect TN 04/15/23 16:50 DAILY PRN Constipation Carvedilol 25 mg 04/15/22 21:00 04/18/22 22:10 Carvedilol 25 Mg Tablet PO 04/15/23 20:59 25 mg BID NIKOLAS Administration Cefadroxil 500 mg 04/15/22 21:00 04/18/22 22:10 Cefadroxil 500 Mg Capsule PO 04/22/22 23:59 500 mg BID NIKOLAS Administration Cyanocobalamin 1,000 mcg 04/16/22 09:00 04/18/22 07:59 Cyanocobalamin 1,000 Mcg Tablet PO 04/16/23 08:59 1,000 mcg QAM NIKOLAS Administration Docusate Sodium 100 mg 04/15/22 16:51 04/19/22 07:53 Docusate 100 Mg Capsule PO 04/15/23 16:50 100 mg BID PRN Administration Constipation Docusate Sodium 283 mg 04/15/22 16:51 Docusate Enema 283 Mg/5 Ml Enema TN 04/15/23 16:50 DAILY PRN Constipation Ferrous Sulfate 324 mg 04/16/22 10:00 04/18/22 10:17 Ferrous Sulfate 324 Mg Tablet. PO 04/16/23 09:59 Not Given Q48H NIKOLAS Ferrous Sulfate 324 mg 04/21/22 21:00 Ferrous Sulfate 324 Mg Tablet. PO 04/21/23 20:59 BID NIKOLAS Folic Acid 1 mg 04/16/22 09:00 04/18/22 07:59 Folic Acid 1 Mg Tablet PO 04/16/23 08:59 1 mg DAILY NIKOLAS Administration Furosemide 40 mg 04/18/22 08:00 04/19/22 07:56 Furosemide 40 Mg Tablet PO 04/18/23 07:59 40 mg DAILY.8A NIKOLAS Administration Hydralazine HCl 25 mg 04/18/22 21:00 Hydralazine 25 Mg Tablet PO 04/18/23 20:59 BID NIKOLAS Sodium Chloride 500 mls @ 20 mls/hr 04/18/22 11:20 0.9 % Sodium Chloride IV 04/19/22 11:19 PROTOCOL PRN BLOOD TRANSFUSION Ferric Sodium Gluconate 270 mls @ 135 mls/hr 04/19/22 09:00 Complex 250 mg/ Sodium IV 04/21/22 09:01 Chloride QAM NIKOLAS Lactulose 30 gm 04/15/22 16:51 Lactulose 20 Gm/30 Ml Udc PO 04/15/23 16:50 DAILY PRN Constipation Lisinopril 10 mg 04/19/22 09:00 Lisinopril 10 Mg Tablet PO 04/19/23 08:59 QAM NIKOLAS Melatonin 5 mg 04/16/22 22:00 04/18/22 22:11 Melatonin 5 Mg Tablet PO 04/16/23 21:59 5 mg QHS NIKOLAS Administration Omeprazole 20 mg 04/18/22 11:20 04/18/22 12:13 Omeprazole 20 Mg Capsule.Dr PO 04/18/23 11:19 20 mg DAILY NIKOLAS Administration Ondansetron HCl 8 mg 04/15/22 16:42 Ondansetron Odt 4 Mg Tab.Rapdis PO 04/15/23 16:41 TID PRN Nausea Oxycodone HCl 5 mg 04/15/22 16:42 04/19/22 07:53 Oxycodone Ir 5 Mg Tablet PO 5 mg Q4HR PRN Administration Pain Scale 6 - 10 Polyethylene Glycol 17 gm 04/15/22 16:42 04/19/22 07:53 Polyethylene Glycol 3350 17 Gm Powd.Pack PO 04/15/23 16:41 17 gm DAILY PRN Administration Constipation Senna/Docusate Sodium 2 tab 04/16/22 09:00 04/18/22 07:59 Sennosides/Docusate 8.6-50mg 1 Tab Tablet PO 04/16/23 08:59 2 tab DAILY NIKOLAS Administration Sennosides 2 tab 04/16/22 12:00 Sennosides 8.6 Mg Tablet PO 04/16/23 11:59 DAILY@12 PRN If no BM in 2 days Sodium Chloride 0 ml 04/15/22 16:51 Sodium Chloride 0.9 % 10 Ml Syringe IV-PUSH 04/15/23 16:50 PRN PRN Flush Sodium Chloride 10 ml 04/17/22 22:00 04/19/22 06:51 Sodium Chloride 0.9 % 10 Ml Syringe IV-PUSH 04/17/23 21:59 10 ml Q8H NIKOLAS Administration Spironolactone 25 mg 04/16/22 09:00 04/18/22 12:32 Spironolactone 25 Mg Tablet PO 04/16/23 08:59 Not Given QAM NIKOLAS Trazodone HCl 50 mg 04/18/22 10:41 04/18/22 22:10 Trazodone 50 Mg Tablet PO 04/16/23 21:59 50 mg QHS PRN Administration Insomnia Vitamin D 125 mcg 04/16/22 09:00 04/18/22 07:59 Cholecalciferol 125 Mcg (5,000 Units) Capsule PO 04/16/23 08:59 125 mcg DAILY NIKOLAS Administration A&P - Hospitalist Assessment/Plan (1) Morbid obesity with BMI of 40.0-44.9, adult: (2) Status post right knee replacement: (3) Atrial fibrillation: (4) Hypertension: (5) Chronic anticoagulation: (6) Edema of both legs: (7) Hypotension: (8) Anemia: Plan s/p right knee arthroplasty 04/14 -Further POC per PMR team for rehabilitative therapy, pain control and bowel regimen, DVT PPx, surgical wound care -Please defer any questions/concerns to orthopedic team including but not limited to pain management, ambulation instructions, wound care, wound infection, wound to bleed, outpatient follow-up. -Cefadroxil postop per orthopedic preference -Preop Hgb 1.3, trend labs Chronic conditions 1. A. fib on chronic anticoagulation, HTN?amlodipine, apixaban, carvedilol, allysine, lisinopril, spironolactone 2. Gout?allopurinol 3. TATIANA/obesity hypoventilation Hypertension. Blood pressure is on the low side. Patient has bilateral legs edema. Patient would need to be on diuretics Patient had received 1 unit of RBC transfusion. He is getting iron infusion I reduced further amlodipine, hydralazine and the lisinopril dose to allow room for diuresis without compromising his hemodynamics. B12 and folate came back normal Venous studies negative for DVT. I requested to recheck a CBC and BMP on Thursday. I will be off service starting Thursday evening. Case will be handled by one of my partners. Please call or alert hospitalist if pt develops any signs or symptoms that may require medical evaluation and or intervention. Once again, please arrange for pt after discharge follow up appts with PCP and other specialists. I may or may not have addressed all of patient symptoms, abnormal labs and imaging during this hospitalization. Please ask patient to ask PCP and out patient providers to obtain [facility] record entirely to follow up on illnesses, symptoms, abnormal findings that I have and have not addressed during this encounter and hospitalization in out patient setting. Documented By: Rain Ramos MD 04/19/2236 Signed By: <Electronically signed by Rain Ramos MD> 04/19/2235 [facility] Work Phone: 1(242) 791-796910-14-2022 Progress note Author Delmer Whyte [facility] April 18, 2022 3:40pm Note Date/Time April 18, 2022 3 :40pm [facility] [address] [place] [address] Physiatry(Rehab) Progress Note Signed Patient: Al Kuo MR# : [id number] : 1945 Acct:[id number] Age/Sex: 76 / M Adm Date: 2 Loc: Room: [address] [place] [address] Type: ADM IN Attending Dr: Delmer Whyte MD Copies to: ~ Date of Service: 04/18/2022 Subjective Subjective Narrative: Mr. Kuo is a 76-year-old male with past medical history as above admitted to the rehabilitation unit with functional impairment status post righttotal knee arthroplasty complicated by morbid obesity, BMI 43.1. Pain and had progressive right knee pain, which failed conservative management. Robotic assisted right total knee arthroplasty completed on April 14. Postoperative course uncomplicated. Recommended for inpatient rehab by orthopedic surgeon and therapy. Recovery complicated by body habitus as noted. Interval history: Venous duplex no DVT Initiated on some albumin by hospitalist BP meds adjusted Less symptomatic today, ambulated 75'. Pain controlled Chronic conditions including morbid obesity, hypertension, atrial fibrillation, gout are stable with current management. Review of Systems Review of Systems Review of systems: Constitutional: Reports system reviewed and no additional complaints, except as documented Cardiovascular: Reports system reviewed and no additional complaints, except as documented Respiratory: Reports system reviewed and no additional complaints, except as documented Gastrointestinal: Reports system reviewed and no additional complaints, except as documented Genitourinary: Reports system reviewed and no additional complaints, except as documented Musculoskeletal: Reports system reviewed and no additional complaints, except asdocumented Skin: Reports system reviewed and no additional complaints, except as documented Neurologic: Reports system reviewed and no additional complaints, except as documented, Psychiatric: Reports system reviewed and no additional complaints, except as documented Exam Physical Exam Vital Signs: Temp Pulse Resp BP Pulse Ox O2 Del Method 98.5 F 81 18 122/70 95 Room Air 04/18/22 14:28 04/18/22 14:28 04/18/22 14:28 04/18/22 14:28 04/18/22 14:28 04/18/22 12:57 Narrative: General: cooperative, comfortable HENMT Head: normal to inspection Eyes General: appearance normal, both eyes and all related structures Neck Neck: normal visual inspection, no lymphadenopathy Resp Effort & Inspection: normal respiratory effort Auscultation: clear to auscultation bilaterally Cardio Rate: regular rate Rhythm: regular rhythm Heart Sounds: S1 normal, S2 normal GI Inspection: normal to inspection Auscultation: normal bowel sounds Neuro Cranial Nerves: CN's II-XI intact bilaterally Cognition: normal cognition Speech: speech normal Motor: strength 5/5 throughout Sensory Exam: no sensory deficits noted Plantar Reflexes: Downgoing Deep Tendon Reflexes DTR Comments: 1+ and symmetric Extrem Minimal edema, right knee dressed Psych Mood: normal affect Affect: normal affect Endurance fair Objective Labs CBC & Chem 7: 04/18/22 10:47 04/17/22 11:58 Labs: Laboratory Results - last 24 hr 04/18/22 04/18/22 04/18/22 05:18 10:45 10:47 Corrected WBC 9.6 Uncorrected WBC Count 9.6 RBC 2.29 L Hgb 8.3 L Hct 23.9 L MCV 104.2 H MCH 36.3 H MCHC 34.8 RDW 14.1 Plt Count 138 L MPV 7.6 Neut % (Auto) 85.4 Lymph % (Auto) 5.3 [place] % (Auto) 7.9 Eos % (Auto) 1.2 Baso % (Auto) 0.2 Neut # (Auto) 8.2 H Lymph # (Auto) 0.5 L [place] # (Auto) 0.8 Eos # (Auto) 0.1 Baso # (Auto) 0.0 Nucleated RBC % (auto) 0.0 Iron TIBC Iron Saturation Transferrin Vitamin B12 Folate Free T4 1.06 TSH 3rd Generation 1.28 Blood Type A Negative Antibody Screen Negative Crossmatch ([facility]) See Detail 04/18/22 10:47 Corrected WBC Uncorrected WBC Count RBC Hgb Hct MCV MCH MCHC RDW Plt Count MPV Neut % (Auto) Lymph % (Auto) [place] % (Auto) Eos % (Auto) Baso % (Auto) Neut # (Auto) Lymph # (Auto) [place] # (Auto) Eos # (Auto) Baso # (Auto) Nucleated RBC % (auto) Iron 23 L TIBC 202 L Iron Saturation 11.0 L Transferrin 144 L Vitamin B12 1866 H Folate 20.3 Free T4 TSH 3rd Generation Blood Type Antibody Screen Crossmatch ([facility]) Medications and Allergies Allergies and Active Meds: Allergies No Known Allergies Allergy (Verified 03/31/22 13:58) Active Medications Generic Name Dose Route Start Last Admin Trade Name Freq PRN Reason Stop Dose Admin Acetaminophen 500 mg 04/18/22 16:00 Acetaminophen 500 Mg Tablet PO 04/15/23 15:59 Q8H PRN Pain Al Hydrox/Mg Hydrox/Simethicone 30 ml 04/15/22 16:51 Mag Hydrox/Al Hydrox/Simeth 30 Ml Udc PO 04/15/23 16:50 Q4H PRN Indigestion Allopurinol 300 mg 04/16/22 09:00 04/18/22 07:59 Allopurinol 300 Mg Tablet PO 04/16/23 08:59 300 mg QAM NIKOLAS Administration Amlodipine Besylate 2.5 mg 04/19/22 09:00 Amlodipine 2.5 Mg Tablet PO 04/19/23 08:59 DAILY NIKOLAS Apixaban 5 mg 04/15/22 21:00 04/18/22 07:59 Apixaban 5 Mg Tablet PO 04/15/23 20:59 5 mg BID NIKOLAS Administration Ascorbic Acid 500 mg 04/15/22 17:00 04/18/22 07:59 Ascorbic Acid 500 Mg Tablet PO 04/15/23 16:59 500 mg BID.WITH.MEALS NIKOLAS Administration Bisacodyl 10 mg 04/15/22 16:51 Bisacodyl 10 Mg Supp.Rect TN 04/15/23 16:50 DAILY PRN Constipation Carvedilol 25 mg 04/15/22 21:00 04/18/22 10:17 Carvedilol 25 Mg Tablet PO 04/15/23 20:59 Not Given BID INKOLAS Cefadroxil 500 mg 04/15/22 21:00 04/18/22 07:59 Cefadroxil 500 Mg Capsule PO 04/22/22 23:59 500 mg BID NIKOLAS Administration Cyanocobalamin 1,000 mcg 04/16/22 09:00 04/18/22 07:59 Cyanocobalamin 1,000 Mcg Tablet PO 04/16/23 08:59 1,000 mcg QAM NIKOLAS Administration Docusate Sodium 100 mg 04/15/22 16:51 04/16/22 21:49 Docusate 100 Mg Capsule PO 04/15/23 16:50 100 mg BID PRN Administration Constipation Docusate Sodium 283 mg 04/15/22 16:51 Docusate Enema 283 Mg/5 Ml Enema TN 04/15/23 16:50 DAILY PRN Constipation Ferrous Sulfate 324 mg 04/16/22 10:00 04/18/22 10:17 Ferrous Sulfate 324 Mg Tablet. PO 04/16/23 09:59 Not Given Q48H NIKOLAS Ferrous Sulfate 324 mg 04/21/22 21:00 Ferrous Sulfate 324 Mg Tablet. PO 04/21/23 20:59 BID NIKOLAS Folic Acid 1 mg 04/16/22 09:00 04/18/22 07:59 Folic Acid 1 Mg Tablet PO 04/16/23 08:59 1 mg DAILY NIKOLAS Administration Furosemide 40 mg 04/18/22 08:00 04/18/22 07:59 Furosemide 40 Mg Tablet PO 04/18/23 07:59 40 mg DAILY.8A NIKOLAS Administration Hydralazine HCl 25 mg 04/18/22 21:00 Hydralazine 25 Mg Tablet PO 04/18/23 20:59 BID NIKOLAS Albumin Human 25 gm in 100 mls @ 200 mls/hr 04/18/22 12:00 04/18/22 12:42 Albuminar-25 IV 04/19/22 09:29 Infused DAILY NIKOLAS Infusion Sodium Chloride 500 mls @ 20 mls/hr 04/18/22 11:20 0.9 % Sodium Chloride IV 04/19/22 11:19 PROTOCOL PRN BLOOD TRANSFUSION Ferric Sodium Gluconate 270 mls @ 135 mls/hr 04/19/22 09:00 Complex 250 mg/ Sodium IV 04/21/22 09:01 Chloride QAM NIKOLAS Lactulose 30 gm 04/15/22 16:51 Lactulose 20 Gm/30 Ml Udc PO 04/15/23 16:50 DAILY PRN Constipation Lisinopril 10 mg 04/19/22 09:00 Lisinopril 10 Mg Tablet PO 04/19/23 08:59 QAM NIKOLAS Melatonin 5 mg 04/16/22 22:00 04/17/22 21:29 Melatonin 5 Mg Tablet PO 04/16/23 21:59 5 mg QHS NIKOLAS Administration Omeprazole 20 mg 04/18/22 11:20 04/18/22 12:13 Omeprazole 20 Mg Capsule. PO 04/18/23 11:19 20 mg DAILY NIKOLAS Administration Ondansetron HCl 8 mg 04/15/22 16:42 Ondansetron Odt 4 Mg Tab.Rapdis PO 04/15/23 16:41 TID PRN Nausea Oxycodone HCl 5 mg 04/15/22 16:42 04/18/22 07:59 Oxycodone Ir 5 Mg Tablet PO 5 mg Q4HR PRN Administration Pain Scale 6 - 10 Polyethylene Glycol 17 gm 04/15/22 16:42 04/18/22 07:59 Polyethylene Glycol 3350 17 Gm Powd.Pack PO 04/15/23 16:41 17 gm DAILY PRN Administration Constipation Senna/Docusate Sodium 2 tab 04/16/22 09:00 04/18/22 07:59 Sennosides/Docusate 8.6-50mg 1 Tab Tablet PO 04/16/23 08:59 2 tab DAILY NIKOLAS Administration Sennosides 2 tab 04/16/22 12:00 Sennosides 8.6 Mg Tablet PO 04/16/23 11:59 DAILY@12 PRN If no BM in 2 days Sodium Chloride 0 ml 04/15/22 16:51 Sodium Chloride 0.9 % 10 Ml Syringe IV-PUSH 04/15/23 16:50 PRN PRN Flush Sodium Chloride 10 ml 04/17/22 22:00 04/18/22 13:46 Sodium Chloride 0.9 % 10 Ml Syringe IV-PUSH 04/17/23 21:59 10 ml Q8H NIKOLAS Administration Spironolactone 25 mg 04/16/22 09:00 04/18/22 12:32 Spironolactone 25 Mg Tablet PO 04/16/23 08:59 Not Given QAM NIKOLAS Trazodone HCl 50 mg 04/18/22 10:41 Trazodone 50 Mg Tablet PO 04/16/23 21:59 QHS PRN Insomnia Vitamin D 125 mcg 04/16/22 09:00 04/18/22 07:59 Cholecalciferol 125 Mcg (5,000 Units) Capsule PO 04/16/23 08:59 125 mcg DAILY NIKOLAS Administration Assessment/Plan Assessment/Plan (1) Status post right knee replacement: Plan: PT to improve pt's strength, endurance, bed mobility, transfers (sit-stand), standing balance, gait quality on level surfaces and stairs, coordination and functional ADL skills. Will also work to improve pt's safety awareness during transfers and ambulation. OT for basic ADL re-training (bathing, dressing, toileting, continence, grooming, feeding, transferring), to increase activity tolerance and functional mobility and to evaluate for adaptive and assistive devices. Will work to improve pt's endurance and educate pt on fall prevention and energy conservationtechniques-pacing strategies and proper breathing techniques during functional tasks. Patient education Pressure ulcer prophylaxis; encourage mobilization, frequent postural changes, pressure-relief techniques DVT prophylaxis Encourage deep breathing exercise incentive spirometry. Monitor bladder. Toileting schedule. Continue current bladder management, with scans as needed and CIC if needed. Start bowel care program every day to obtain continence, prevent ileus. Maintain fall precautions Gait and balance retraining Provision of the necessary gait aids and functional adaptive equipment to enhance the patient's a functional latter-day Encourage deep breathing exercises and incentive spirometry RD evaluation Ensure adequate nutrition and hydration Discharge planning. Code(s): Z96.651 - Presence of right artificial knee joint Status: Acute (2) B12 deficiency: Plan: Continue supplementation Code(s): E53.8 - Deficiency of other specified B group vitamins Status: Acute (3) Morbid obesity with BMI of 40.0-44.9, adult: Code(s): E66.01 - Morbid (severe) obesity due to excess calories; Z68.41 - Body mass index [BMI] 40.0-44.9, adult Status: Acute (4) Folate deficiency: Plan: Continue folate Code(s): E53.8 - Deficiency of other specified B group vitamins Status: Acute (5) Atrial fibrillation: Plan: Continue eliquis Code(s): I48.91 - Unspecified atrial fibrillation Status: Acute (6) Hyperlipidemia: Code(s): E78.5 - Hyperlipidemia, unspecified Status: Acute (7) Gout: Plan: Continue allopurinol Code(s): M10.9 - Gout, unspecified Status: Acute (8) TATIANA (obstructive sleep apnea): Code(s): G47.33 - Obstructive sleep apnea (adult) (pediatric) Status: Acute (9) Hypertension: Plan: Continue home regimen TREND BP Code(s): I10 - Essential (primary) hypertension Status: Acute (10) Osteoarthritis: Code(s): M19.90 - Unspecified osteoarthritis, unspecified site Status: Acute (11) Hyponatremia: Plan: Stable, trend Code(s): E87.1 - Hypo-osmolality and hyponatremia Status: Acute Plan 76-year-old male with past medical history as above admitted to the rehabilitation unit with functional impairment status post right total knee arthroplasty complicated by morbid obesity, BMI 43.1 * Hgb stable 8.3 * IV albumin per hospitalist * Improved BP and tolerance to therapy today * Venous duplex negative. Hospitalist to assist with management of comorbid medical conditions Pain control: Tylenol, topical modalities. Minimize opioids. Leonard ice. Bowel and bladder: Bowel regimen in place. Skin: Prevent skin breakdown. Monitor operative site. Sleep: Poor sleep reported. Initiate melatonin and trazodone. DVT prophylaxis: Covered with Eliquis. Functional status: Needs assist Discharge planning: Hopefully home in 1 to 2 weeks. I spent greater than 35 minutes for services, including [id number] encounter with the patient, discussion of the case, plan of care, and exam; and [id number] activities, such as reviewing pertinent retail consultant documentation, recent therapy notes, laboratory and radiology studies, and discussion of case with care team including physician, nursing, therapeutic case manager, and therapists. More than 50 % of time was spent on patient/family counseling or coordination of care. Documented By: Delmer Whyte MD 04/18/22 1536 Signed By: <Electronically signed by Delmer Whyte MD> 04/18/22 1540 [facility] Work Phone: 1(634) 207-652110-14-2022 Progress note Author Delmer Whyte [facility] April 18, 2022 12:44pm Note Date/Time April 17, 2022 1 2:09pm [facility] [address] [place] [address] Physiatry(Rehab) Progress Note Signed Patient: Al Kuo MR# : [id number] : 1945 Acct:[id number] Age/Sex: 76 / M Adm Date: 2 Loc: Room: 5S6736-7 Type: ADM IN Attending Dr: Delmer Whyte MD Copies to: ~ <Lillian Harris APRN - Last Filed: 04/17/22 12:45> Date of Service: 04/17/2022 Subjective <Lillian Harris APRN - Last Filed: 04/17/22 12:45> Subjective Narrative: Mr. Kuo is a 76-year-old male with past medical history as above admitted to the rehabilitation unit with functional impairment status post righttotal knee arthroplasty complicated by morbid obesity, BMI 43.1. Pain and had progressive right knee pain, which failed conservative management. Robotic assisted right total knee arthroplasty completed on April 14. Postoperative course uncomplicated. Recommended for inpatient rehab by orthopedic surgeon and therapy. Recovery complicated by body habitus as noted. Interval history: Patient is dizzy and lightheaded during occupational therapy this morning. Noted to be significantly orthostatic. Some of his blood pressure meds were already held per nursing this morning due to lower BPs. He is asymptomatic and supine position. Blood pressure is improving. We will give him a small fluid bolus, hold BP meds. Can use abdominal binder. BLE pitting edema noted. Patient actually thinks that it typically looks much worse. Will initiate Chi wraps. Pain is reasonably controlled with oxycodone and acetaminophen. Chronic conditions including morbid obesity, hypertension, atrial fibrillation, gout are stable with current management. Review of Systems <Lillian Harris APRN - Last Filed: 04/17/22 12:45> Review of Systems All other systems reviewed & are negative unless noted below or in HPI <Delmer Whyte MD - Last Filed: 04/18/22 12:44> Review of Systems Review of systems: Constitutional: Reports system reviewed and no additional complaints, except as documented Cardiovascular: Reports system reviewed and no additional complaints, except as documented Respiratory: Reports system reviewed and no additional complaints, except as documented Gastrointestinal: Reports system reviewed and no additional complaints, except as documented Genitourinary: Reports system reviewed and no additional complaints, except as documented Musculoskeletal: Reports system reviewed and no additional complaints, except asdocumented Skin: Reports system reviewed and no additional complaints, except as documented Neurologic: Reports system reviewed and no additional complaints, except as documented, Psychiatric: Reports system reviewed and no additional complaints, except as documented Exam <Lillian Harris APRN - Last Filed: 04/17/22 12:45> Physical Exam Vital Signs: Temp Pulse Resp BP Pulse Ox O2 Del Method 97.9 F 68 18 113/60 95 Room Air 04/17/22 10:08 04/17/22 10:08 04/17/22 10:08 04/17/22 11:52 04/17/22 05:51 04/17/22 10:32 Narrative: General: Alert and oriented, calm and cooperative, no acute distress. HENUT Head: normal to inspection Eyes General: appearance normal, both eyes and all related structures Neck Neck: normal visual inspection, no lymphadenopathy Resp Effort & Inspection: normal respiratory effort Auscultation: clear to auscultation bilaterally Cardio Rate: regular rate Rhythm: regular rhythm Heart Sounds: S1 normal, S2 normal GI Inspection: normal to inspection Auscultation: normal bowel sounds Neuro Cranial Nerves: CN's II-XI intact bilaterally Cognition: normal cognition Speech: speech normal Motor: strength 5/5 throughout Sensory Exam: no sensory deficits noted Plantar Reflexes: Downgoing Deep Tendon Reflexes DTR Comments: 1+ and symmetric Extrem General: Bilateral lower extremity edema, right >left. Right knee with occlusive dressing, wound VAC attached, no drainage in the canister. Psych Mood: normal affect Affect: normal affect Endurance fair Objective <Lillian Harris APRN - Last Filed: 04/17/22 12:45> Labs CBC & Chem 7: 04/18/22 10:47 04/17/22 11:58 Medications and Allergies Allergies and Active Meds: Allergies No Known Allergies Allergy (Verified 03/31/22 13:58) Active Medications Generic Name Dose Route Start Last Admin Trade Name Freq PRN Reason Stop Dose Admin Acetaminophen 1,000 mg 04/15/22 16:45 04/17/22 08:11 Acetaminophen 500 Mg Tablet PO 04/15/23 16:44 1,000 mg Q8H NIKOLAS Administration Al Hydrox/Mg Hydrox/Simethicone 30 ml 04/15/22 16:51 Mag Hydrox/Al Hydrox/Simeth 30 Ml Udc PO 04/15/23 16:50 Q4H PRN Indigestion Allopurinol 300 mg 04/16/22 09:00 04/17/22 08:12 Allopurinol 300 Mg Tablet PO 04/16/23 08:59 300 mg QAM NIKOLAS Administration Amlodipine Besylate 5 mg 04/18/22 09:00 Amlodipine 5 Mg Tablet PO 04/18/23 08:59 DAILY NIKOLAS Apixaban 5 mg 04/15/22 21:00 04/17/22 08:10 Apixaban 5 Mg Tablet PO 04/15/23 20:59 5 mg BID NIKOLAS Administration Ascorbic Acid 500 mg 04/15/22 17:00 04/17/22 08:11 Ascorbic Acid 500 Mg Tablet PO 04/15/23 16:59 500 mg BID.WITH.MEALS NIKOLAS Administration Bisacodyl 10 mg 04/15/22 16:51 Bisacodyl 10 Mg Supp.Rect TN 04/15/23 16:50 DAILY PRN Constipation Carvedilol 25 mg 04/15/22 21:00 04/17/22 08:13 Carvedilol 25 Mg Tablet PO 04/15/23 20:59 25 mg BID NIKOLAS Administration Cefadroxil 500 mg 04/15/22 21:00 04/17/22 08:10 Cefadroxil 500 Mg Capsule PO 04/22/22 23:59 500 mg BID NIKOLAS Administration Cyanocobalamin 1,000 mcg 04/16/22 09:00 04/17/22 08:11 Cyanocobalamin 1,000 Mcg Tablet PO 04/16/23 08:59 1,000 mcg QAM NIKOLAS Administration Docusate Sodium 100 mg 04/15/22 16:51 04/16/22 21:49 Docusate 100 Mg Capsule PO 04/15/23 16:50 100 mg BID PRN Administration Constipation Docusate Sodium 283 mg 04/15/22 16:51 Docusate Enema 283 Mg/5 Ml Enema TN 04/15/23 16:50 DAILY PRN Constipation Ferrous Sulfate 324 mg 04/16/22 10:00 04/16/22 10:36 Ferrous Sulfate 324 Mg Tablet.Dr PO 04/16/23 09:59 324 mg Q48H NIKOLAS Administration Folic Acid 1 mg 04/16/22 09:00 04/17/22 08:12 Folic Acid 1 Mg Tablet PO 04/16/23 08:59 1 mg DAILY NIKOLAS Administration Furosemide 40 mg 04/18/22 08:00 Furosemide 40 Mg Tablet PO 04/18/23 07:59 DAILY.8A NIKOLAS Hydralazine HCl 25 mg 04/17/22 14:00 Hydralazine 25 Mg Tablet PO 04/17/23 13:59 TID NIKOLAS Sodium Chloride 1,000 mls @ 250 mls/hr 04/17/22 10:15 04/17/22 10:23 0.9% Sodium Chloride 1,000 Ml IV 04/17/22 12:14 250 mls/hr .Q4H NIKOLAS Administration Lactulose 30 gm 04/15/22 16:51 Lactulose 20 Gm/30 Ml Udc PO 04/15/23 16:50 DAILY PRN Constipation Lisinopril 20 mg 04/18/22 09:00 Lisinopril 20 Mg Tablet PO 04/18/23 08:59 QAM NIKOLAS Melatonin 5 mg 04/16/22 22:00 04/16/22 21:48 Melatonin 5 Mg Tablet PO 04/16/23 21:59 5 mg QHS NIKOLAS Administration Ondansetron HCl 8 mg 04/15/22 16:42 Ondansetron Odt 4 Mg Tab.Rapdis PO 04/15/23 16:41 TID PRN Nausea Oxycodone HCl 5 mg 04/15/22 16:42 04/17/22 08:11 Oxycodone Ir 5 Mg Tablet PO 5 mg Q4HR PRN Administration Pain Scale 6 - 10 Polyethylene Glycol 17 gm 04/15/22 16:42 Polyethylene Glycol 3350 17 Gm Powd.Pack PO 04/15/23 16:41 DAILY PRN Constipation Senna/Docusate Sodium 2 tab 04/16/22 09:00 04/17/22 08:12 Sennosides/Docusate 8.6-50mg 1 Tab Tablet PO 04/16/23 08:59 2 tab DAILY NIKOLAS Administration Sennosides 2 tab 04/16/22 12:00 Sennosides 8.6 Mg Tablet PO 04/16/23 11:59 DAILY@12 PRN If no BM in 2 days Sodium Chloride 0 ml 04/15/22 16:51 Sodium Chloride 0.9 % 10 Ml Syringe IV-PUSH 04/15/23 16:50 PRN PRN Flush Spironolactone 25 mg 04/16/22 09:00 04/17/22 10:19 Spironolactone 25 Mg Tablet PO 04/16/23 08:59 Not Given QAM NIKOLAS Trazodone HCl 50 mg 04/16/22 22:00 04/16/22 21:48 Trazodone 50 Mg Tablet PO 04/16/23 21:59 50 mg QHS NIKOLAS Administration Vitamin D 125 mcg 04/16/22 09:00 04/17/22 08:11 Cholecalciferol 125 Mcg (5,000 Units) Capsule PO 04/16/23 08:59 125 mcg DAILY NIKOLAS Administration Assessment/Plan <Lillian Harris APRN - Last Filed: 04/17/22 12:45> Assessment/Plan (1) Status post right knee replacement: Plan: PT to improve pt's strength, endurance, bed mobility, transfers (sit-stand), standing balance, gait quality on level surfaces and stairs, coordination and functional ADL skills. Will also work to improve pt's safety awareness during transfers and ambulation. OT for basic ADL re-training (bathing, dressing, toileting, continence, grooming, feeding, transferring), to increase activity tolerance and functional mobility and to evaluate for adaptive and assistive devices. Will work to improve pt's endurance and educate pt on fall prevention and energy conservationtechniques-pacing strategies and proper breathing techniques during functional tasks. Patient education Pressure ulcer prophylaxis; encourage mobilization, frequent postural changes, pressure-relief techniques DVT prophylaxis Encourage deep breathing exercise incentive spirometry. Monitor bladder. Toileting schedule. Continue current bladder management, with scans as needed and CIC if needed. Start bowel care program every day to obtain continence, prevent ileus. Maintain fall precautions Gait and balance retraining Provision of the necessary gait aids and functional adaptive equipment to enhance the patient's a functional latter-day Encourage deep breathing exercises and incentive spirometry RD evaluation Ensure adequate nutrition and hydration Discharge planning. Code(s): Z96.651 - Presence of right artificial knee joint Status: Acute (2) B12 deficiency: Plan: Continue supplementation Code(s): E53.8 - Deficiency of other specified B group vitamins Status: Acute (3) Morbid obesity with BMI of 40.0-44.9, adult: Code(s): E66.01 - Morbid (severe) obesity due to excess calories; Z68.41 - Body mass index [BMI] 40.0-44.9, adult Status: Acute (4) Folate deficiency: Plan: Continue folate Code(s): E53.8 - Deficiency of other specified B group vitamins Status: Acute (5) Atrial fibrillation: Plan: Continue eliquis Code(s): I48.91 - Unspecified atrial fibrillation Status: Acute (6) Hyperlipidemia: Code(s): E78.5 - Hyperlipidemia, unspecified Status: Acute (7) Gout: Plan: Continue allopurinol Code(s): M10.9 - Gout, unspecified Status: Acute (8) TATIANA (obstructive sleep apnea): Code(s): G47.33 - Obstructive sleep apnea (adult) (pediatric) Status: Acute (9) Hypertension: Plan: Continue home regimen TREND BP Code(s): I10 - Essential (primary) hypertension Status: Acute (10) Osteoarthritis: Code(s): M19.90 - Unspecified osteoarthritis, unspecified site Status: Acute (11) Hyponatremia: Plan: Stable, trend Code(s): E87.1 - Hypo-osmolality and hyponatremia Status: Acute Plan 76-year-old male with past medical history as above admitted to the rehabilitation unit with functional impairment status post right total knee arthroplasty complicated by morbid obesity, BMI 43.1 * Small fluid bolus given for profound orthostatic hypotension. Initiate KARL hose/Chi wraps and abdominal binder. Hold BP meds for now. Trend vitals. * Repeat labs ordered. Noted significant hemoglobin drop 8.4 from 10.4 2 days ago, which is likely contributing to orthostasis. We will recheck labs again in a day or two. Hyponatremia is improving 132 from 130 yesterday. * UA is also ordered, pending * His pain is reasonably controlled. Hospitalist to assist with management of comorbid medical conditions Pain control: Tylenol, topical modalities. Minimize opioids. Leonard ice. Bowel and bladder: Bowel regimen in place. Skin: Prevent skin breakdown. Monitor operative site. Sleep: Poor sleep reported. Initiate melatonin and trazodone. DVT prophylaxis: Covered with Eliquis. Functional status: Needs assist Discharge planning: Hopefully home in 1 to 2 weeks. I spent greater than 25 minutes for services, including [id number] encounter with the patient, discussion of the case, plan of care, and exam; and [id number] activities, such as reviewing pertinent retail consultant documentation, recent therapy notes, laboratory and radiology studies, and discussion of case with care team including physician, nursing, therapeutic case manager, and therapists. More than 50 % of time was spent on patient/family counseling or coordination of care. <Delmer Whyte MD - Last Filed: 04/18/22 12:44> Assessment/Plan (1) Status post right knee replacement: (2) B12 deficiency: (3) Morbid obesity with BMI of 40.0-44.9, adult: (4) Folate deficiency: (5) Atrial fibrillation: (6) Hyperlipidemia: (7) Gout: (8) TATIANA (obstructive sleep apnea): (9) Hypertension: (10) Osteoarthritis: (11) Hyponatremia: Plan 76-year-old male with past medical history as above admitted to the rehabilitation unit with functional impairment status post right total knee arthroplasty complicated by morbid obesity, BMI 43.1 * Small fluid bolus given for profound orthostatic hypotension. Initiate KARL hose/Chi wraps and abdominal binder. Hold BP meds for now. Trend vitals. * Repeat labs ordered. Noted significant hemoglobin drop 8.4 from 10.4 2 days ago, which is likely contributing to orthostasis. We will recheck labs again in a day or two. Hyponatremia is improving 132 from 130 yesterday. * UA is also ordered, pending * His pain is reasonably controlled. Hospitalist to assist with management of comorbid medical conditions Pain control: Tylenol, topical modalities. Minimize opioids. Leonard ice. Bowel and bladder: Bowel regimen in place. Skin: Prevent skin breakdown. Monitor operative site. Sleep: Poor sleep reported. Initiate melatonin and trazodone. DVT prophylaxis: Covered with Eliquis. Functional status: Needs assist Discharge planning: Hopefully home in 1 to 2 weeks. I spent greater than 25 minutes for services, including [id number] encounter with the patient, discussion of the case, plan of care, and exam; and qrzrobx-de-bfho activities, such as reviewing pertinent retail consultant documentation, recent therapy notes, laboratory and radiology studies, and discussion of case with care team including physician, nursing, therapeutic case manager, and therapists. More than 50 % of time was spent on patient/family counseling or coordination of care. Plan: I reviewed the history and the relevant portions of the chart, including current orders, allied health and retail consultant notes, labs/imaging and plan of care as above. Documented By: Lillian Harris APRN 04/17/22 1 207 Signed By: <Electronically signed by QUYNH Harris> 04/17/22 1245 <Electronically signed by Delmer Whyte MD> 04/18/22 1244 [facility] Work Phone: 1(162) 914-126510-14-2022 Progress note Author Rain Ramos [facility] April 18, 2022 11:25am Note Date/Time April 18, 2022 1 1:25am [facility] [address] [place] [address] Hospitalist Progress Note Signed Patient: Al Kuo MR# : [id number] : 1945 Acct:[id number] Age/Sex: 76 / M Adm Date: 2 Loc: Room: [address] [place] [address] Type: ADM IN Attending Dr: Delmer Whyte MD Copies to: ~ Date of Service: 04/18/2022 Subjective Subjective Narrative: Uneventful night. Patient feels like is weak and does not have any energy. No hematemesis or melena. No seizure or convulsion. No chest pain palpitation Exam Physical Exam Vital Signs: Temp Pulse Resp BP Pulse Ox O2 Del Method 98.1 F 90 17 96/60 L 94 L Room Air 04/18/22 06:07 04/18/22 10:15 04/18/22 06:07 04/18/22 10:15 04/18/22 06:07 04/18/22 10:24 Narrative: [pt is awake and alert. oriented to place, time and person. Patient is obese HEENT: [place] conjunctiva and NL buccal mucosa Neck: Supple, no tenderness Endocrine: No Thyromegaly. Vascular: No JVD or carotid bruit. Lymphatic: No cervical lymphadenopathy. Chest: CTA no DTP. Heart RRR, no extra sound or murmur. Abd: Soft, no tenderness, no rebound and no rigidity. Increase abd girth therefore clinically I could not exclude the possibility of intra abd mass or organomegaly. LE: No cyanosis or clubbing, no varices. +2 pitting edema in both legs. Neuro: A A O. Nl speech, comprehension and attention. Nl and symetrical motor and tone examination through out. []] Objective Lab Results CBC & Chem 7: 04/18/22 10:47 04/17/22 11:58 Meds Allergies and Active Meds Allergies No Known Allergies Allergy (Verified 03/31/22 13:58) Active Meds: Active Medications Generic Name Dose Route Start Last Admin Trade Name Freq PRN Reason Stop Dose Admin Acetaminophen 1,000 mg 04/15/22 16:45 04/18/22 07:59 Acetaminophen 500 Mg Tablet PO 04/15/23 16:44 1,000 mg Q8H NIKOLAS Administration Al Hydrox/Mg Hydrox/Simethicone 30 ml 04/15/22 16:51 Mag Hydrox/Al Hydrox/Simeth 30 Ml Udc PO 04/15/23 16:50 Q4H PRN Indigestion Allopurinol 300 mg 04/16/22 09:00 04/18/22 07:59 Allopurinol 300 Mg Tablet PO 04/16/23 08:59 300 mg QAM NIKOLAS Administration Amlodipine Besylate 2.5 mg 04/19/22 09:00 Amlodipine 2.5 Mg Tablet PO 04/19/23 08:59 DAILY NIKOLAS Apixaban 5 mg 04/15/22 21:00 04/18/22 07:59 Apixaban 5 Mg Tablet PO 04/15/23 20:59 5 mg BID NIKOLAS Administration Ascorbic Acid 500 mg 04/15/22 17:00 04/18/22 07:59 Ascorbic Acid 500 Mg Tablet PO 04/15/23 16:59 500 mg BID.WITH.MEALS NIKOLAS Administration Bisacodyl 10 mg 04/15/22 16:51 Bisacodyl 10 Mg Supp.Rect TN 04/15/23 16:50 DAILY PRN Constipation Carvedilol 25 mg 04/15/22 21:00 04/18/22 10:17 Carvedilol 25 Mg Tablet PO 04/15/23 20:59 Not Given BID NIKOLAS Cefadroxil 500 mg 04/15/22 21:00 04/18/22 07:59 Cefadroxil 500 Mg Capsule PO 04/22/22 23:59 500 mg BID NIKOLAS Administration Cyanocobalamin 1,000 mcg 04/16/22 09:00 04/18/22 07:59 Cyanocobalamin 1,000 Mcg Tablet PO 04/16/23 08:59 1,000 mcg QAM NIKOLAS Administration Docusate Sodium 100 mg 04/15/22 16:51 04/16/22 21:49 Docusate 100 Mg Capsule PO 04/15/23 16:50 100 mg BID PRN Administration Constipation Docusate Sodium 283 mg 04/15/22 16:51 Docusate Enema 283 Mg/5 Ml Enema TN 04/15/23 16:50 DAILY PRN Constipation Ferrous Sulfate 324 mg 04/16/22 10:00 04/18/22 10:17 Ferrous Sulfate 324 Mg Tablet.Dr PO 04/16/23 09:59 Not Given Q48H NIKOLAS Folic Acid 1 mg 04/16/22 09:00 04/18/22 07:59 Folic Acid 1 Mg Tablet PO 04/16/23 08:59 1 mg DAILY NIKOLAS Administration Furosemide 40 mg 04/18/22 08:00 04/18/22 07:59 Furosemide 40 Mg Tablet PO 04/18/23 07:59 40 mg DAILY.8A NIKOLAS Administration Hydralazine HCl 25 mg 04/18/22 21:00 Hydralazine 25 Mg Tablet PO 04/18/23 20:59 BID NIKOLAS Albumin Human 25 gm in 100 mls @ 200 mls/hr 04/18/22 12:00 Albuminar-25 IV 04/19/22 09:29 DAILY NIKOLAS Sodium Chloride 500 mls @ 20 mls/hr 04/18/22 11:20 0.9 % Sodium Chloride IV 04/19/22 11:19 PROTOCOL PRN BLOOD TRANSFUSION Lactulose 30 gm 04/15/22 16:51 Lactulose 20 Gm/30 Ml Udc PO 04/15/23 16:50 DAILY PRN Constipation Lisinopril 10 mg 04/19/22 09:00 Lisinopril 10 Mg Tablet PO 04/19/23 08:59 QAM NIKOLAS Melatonin 5 mg 04/16/22 22:00 04/17/22 21:29 Melatonin 5 Mg Tablet PO 04/16/23 21:59 5 mg QHS NIKOLAS Administration Omeprazole 20 mg 04/18/22 11:20 Omeprazole 20 Mg Capsule. PO 04/18/23 11:19 DAILY NIKOLAS Ondansetron HCl 8 mg 04/15/22 16:42 Ondansetron Odt 4 Mg Tab.Rapdis PO 04/15/23 16:41 TID PRN Nausea Oxycodone HCl 5 mg 04/15/22 16:42 04/18/22 07:59 Oxycodone Ir 5 Mg Tablet PO 5 mg Q4HR PRN Administration Pain Scale 6 - 10 Polyethylene Glycol 17 gm 04/15/22 16:42 04/18/22 07:59 Polyethylene Glycol 3350 17 Gm Powd.Pack PO 04/15/23 16:41 17 gm DAILY PRN Administration Constipation Senna/Docusate Sodium 2 tab 04/16/22 09:00 04/18/22 07:59 Sennosides/Docusate 8.6-50mg 1 Tab Tablet PO 04/16/23 08:59 2 tab DAILY NIKOLAS Administration Sennosides 2 tab 04/16/22 12:00 Sennosides 8.6 Mg Tablet PO 04/16/23 11:59 DAILY@12 PRN If no BM in 2 days Sodium Chloride 0 ml 04/15/22 16:51 Sodium Chloride 0.9 % 10 Ml Syringe IV-PUSH 04/15/23 16:50 PRN PRN Flush Sodium Chloride 10 ml 04/17/22 22:00 04/18/22 06:08 Sodium Chloride 0.9 % 10 Ml Syringe IV-PUSH 04/17/23 21:59 10 ml Q8H NIKOLAS Administration Spironolactone 25 mg 04/16/22 09:00 04/17/22 10:19 Spironolactone 25 Mg Tablet PO 04/16/23 08:59 Not Given QAM NIKOLAS Trazodone HCl 50 mg 04/18/22 10:41 Trazodone 50 Mg Tablet PO 04/16/23 21:59 QHS PRN Insomnia Vitamin D 125 mcg 04/16/22 09:00 04/18/22 07:59 Cholecalciferol 125 Mcg (5,000 Units) Capsule PO 04/16/23 08:59 125 mcg DAILY NIKOLAS Administration A&P - Hospitalist Assessment/Plan (1) Morbid obesity with BMI of 40.0-44.9, adult: (2) Status post right knee replacement: (3) Atrial fibrillation: (4) Hypertension: (5) Chronic anticoagulation: (6) Edema of both legs: (7) Hypotension: (8) Anemia: Plan s/p right knee arthroplasty 04/14 -Further POC per PMR team for rehabilitative therapy, pain control and bowel regimen, DVT PPx, surgical wound care -Please defer any questions/concerns to orthopedic team including but not limited to pain management, ambulation instructions, wound care, wound infection, wound to bleed, outpatient follow-up. -Cefadroxil postop per orthopedic preference -Preop Hgb 1.3, trend labs Chronic conditions 1. A. fib on chronic anticoagulation, HTN?amlodipine, apixaban, carvedilol, allysine, lisinopril, spironolactone 2. Gout?allopurinol 3. TATIANA/obesity hypoventilation Hypertension. Blood pressure is on the low side. Patient has bilateral legs edema. Patient would need to be on diuretics His hemoglobin is 8.3. Same as yesterday. No active bleed over the last 24 to 48 hours however his hemoglobin was 11 4 days ago. This could be related to his recent orthopedic surgery. I reduced further amlodipine, hydralazine and the lisinopril dose to allow room for diuresis without compromising his hemodynamics. I requested iron study, B12 and folate I requested 1 unit of RBC transfusion. Patient is in agreement to proceed with the blood transfusion Further titration may be needed Venous studies negative for DVT. Thank you for consulting us to see this pt. I will be off service starting Thursday. Case will be handled by one of my partners. Pt is fairly stable at this time. We will follow pt on an as needed basis. Please call or alert hospitalist if pt develops any signs or symptoms that may require medical evaluation and or intervention. Please arrange for pt after discharge follow up appts with PCP and other specialists. I may or may not have addressed all of patient symptoms, abnormal labs and imaging during this hospitalization. Please ask patient to ask PCP and out patient providers to obtain [facility] record entirely to follow up on illnesses, symptoms, abnormal findings that I have and have not addressed during this encounter and hospitalization in out patient setting. Documented By: Rain Ramos MD 04/18/221121 Signed By: <Electronically signed by Rain Ramos MD> 04/18/221124 [facility] Work Phone: 1(417) 991-467210-13-2022 Progress note Author Rain Ramos [facility] April 17, 2022 9:55am Note Date/Time April 17, 2022 9 :52am [facility] [address] [place] [address] Hospitalist Progress Note Signed Patient: Al Kuo MR# : [id number] : 1945 Acct:[id number] Age/Sex: 76 / M Adm Date: 2 Loc: 5T Room: [address] [place] [address] Type: ADM IN Attending Dr: Delmer Whyte MD Copies to: ~ Date of Service: 04/17/2022 Subjective Subjective Narrative: 76-year-old male past medical history significant for colon cancer, A. fib, hypertension, LVH, pulmonary hypertension, sleep apnea. Presented to the hospital April 14 for elective right total knee arthroplasty for primary rightknee osteoarthritis per orthopedic services. He had a normal complicated postopcourse. Seen by therapy services and subsequently transferred to the acute inpatient rehab unit April 15. Hospitalist team placed on consultation for management of A. fib, hypertension. Patient seen and examined. Endorses right knee postoperative pain as anticipated. Offers no other significant complaints. Denies chest pain or palpitations. No cough, dyspnea, or pain with inspiration. No abdominal pain or indigestion, constipation or diarrhea, nausea or vomiting. No dysuria or retention. No headache or dizziness. No fevers or chills. 04/17: Following up on the patient. No chest pain or palpitation. No abdominalpain, nausea or vomiting. No headaches, loss of conscious or seizure. Functional impairment Exam Physical Exam Vital Signs: Temp Pulse Resp BP Pulse Ox O2 Del Method 98.4 F 88 18 106/59 L 95 Room Air 04/17/22 05:51 04/17/22 08:10 04/17/22 08:10 04/17/22 08:10 04/17/22 05:51 04/17/22 05:51 Narrative: [pt is awake and alert. oriented to place, time and person. Patient is obese HEENT: [place] conjunctiva and NL buccal mucosa Neck: Supple, no tenderness Endocrine: No Thyromegaly. Vascular: No JVD or carotid bruit. Lymphatic: No cervical lymphadenopathy. Chest: CTA no DTP. Heart RRR, no extra sound or murmur. Abd: Soft, no tenderness, no rebound and no rigidity. Increase abd girth therefore clinically I could not exclude the possibility of intra abd mass or organomegaly. LE: No cyanosis or clubbing, no varices. +2 pitting edema in both legs. Neuro: A A O. Nl speech, comprehension and attention. Nl and symetrical motor and tone examination through out. []] Objective Lab Results CBC & Chem 7: 04/16/22 06:08 Meds Allergies and Active Meds Allergies No Known Allergies Allergy (Verified 03/31/22 13:58) Active Meds: Active Medications Generic Name Dose Route Start Last Admin Trade Name Freq PRN Reason Stop Dose Admin Acetaminophen 1,000 mg 04/15/22 16:45 04/17/22 08:11 Acetaminophen 500 Mg Tablet PO 04/15/23 16:44 1,000 mg Q8H NIKOLAS Administration Al Hydrox/Mg Hydrox/Simethicone 30 ml 04/15/22 16:51 Mag Hydrox/Al Hydrox/Simeth 30 Ml Udc PO 04/15/23 16:50 Q4H PRN Indigestion Allopurinol 300 mg 04/16/22 09:00 04/17/22 08:12 Allopurinol 300 Mg Tablet PO 04/16/23 08:59 300 mg QAM NIKOLAS Administration Amlodipine Besylate 5 mg 04/18/22 09:00 Amlodipine 5 Mg Tablet PO 04/18/23 08:59 DAILY NIKOLAS Apixaban 5 mg 04/15/22 21:00 04/17/22 08:10 Apixaban 5 Mg Tablet PO 04/15/23 20:59 5 mg BID NIKOLAS Administration Ascorbic Acid 500 mg 04/15/22 17:00 04/17/22 08:11 Ascorbic Acid 500 Mg Tablet PO 04/15/23 16:59 500 mg BID.WITH.MEALS NIKOLAS Administration Bisacodyl 10 mg 04/15/22 16:51 Bisacodyl 10 Mg Supp.Rect TN 04/15/23 16:50 DAILY PRN Constipation Carvedilol 25 mg 04/15/22 21:00 04/17/22 08:13 Carvedilol 25 Mg Tablet PO 04/15/23 20:59 25 mg BID NIKOLAS Administration Cefadroxil 500 mg 04/15/22 21:00 04/17/22 08:10 Cefadroxil 500 Mg Capsule PO 04/22/22 23:59 500 mg BID NIKOLAS Administration Cyanocobalamin 1,000 mcg 04/16/22 09:00 04/17/22 08:11 Cyanocobalamin 1,000 Mcg Tablet PO 04/16/23 08:59 1,000 mcg QAM NIKOLAS Administration Docusate Sodium 100 mg 04/15/22 16:51 04/16/22 21:49 Docusate 100 Mg Capsule PO 04/15/23 16:50 100 mg BID PRN Administration Constipation Docusate Sodium 283 mg 04/15/22 16:51 Docusate Enema 283 Mg/5 Ml Enema TN 04/15/23 16:50 DAILY PRN Constipation Ferrous Sulfate 324 mg 04/16/22 10:00 04/16/22 10:36 Ferrous Sulfate 324 Mg Tablet.Dr PO 04/16/23 09:59 324 mg Q48H NIKOLAS Administration Folic Acid 1 mg 04/16/22 09:00 04/17/22 08:12 Folic Acid 1 Mg Tablet PO 04/16/23 08:59 1 mg DAILY NIKOLAS Administration Furosemide 40 mg 04/18/22 08:00 Furosemide 40 Mg Tablet PO 04/18/23 07:59 DAILY.8A NIKOLAS Hydralazine HCl 25 mg 04/17/22 14:00 Hydralazine 25 Mg Tablet PO 04/17/23 13:59 TID NIKOLAS Lactulose 30 gm 04/15/22 16:51 Lactulose 20 Gm/30 Ml Udc PO 04/15/23 16:50 DAILY PRN Constipation Lisinopril 20 mg 04/18/22 09:00 Lisinopril 20 Mg Tablet PO 04/18/23 08:59 QAM NIKOLAS Melatonin 5 mg 04/16/22 22:00 04/16/22 21:48 Melatonin 5 Mg Tablet PO 04/16/23 21:59 5 mg QHS NIKOLAS Administration Ondansetron HCl 8 mg 04/15/22 16:42 Ondansetron Odt 4 Mg Tab.Rapdis PO 04/15/23 16:41 TID PRN Nausea Oxycodone HCl 5 mg 04/15/22 16:42 04/17/22 08:11 Oxycodone Ir 5 Mg Tablet PO 5 mg Q4HR PRN Administration Pain Scale 6 - 10 Polyethylene Glycol 17 gm 04/15/22 16:42 Polyethylene Glycol 3350 17 Gm Powd.Pack PO 04/15/23 16:41 DAILY PRN Constipation Senna/Docusate Sodium 2 tab 04/16/22 09:00 04/17/22 08:12 Sennosides/Docusate 8.6-50mg 1 Tab Tablet PO 04/16/23 08:59 2 tab DAILY NIKOLAS Administration Sennosides 2 tab 04/16/22 12:00 Sennosides 8.6 Mg Tablet PO 04/16/23 11:59 DAILY@12 PRN If no BM in 2 days Sodium Chloride 0 ml 04/15/22 16:51 Sodium Chloride 0.9 % 10 Ml Syringe IV-PUSH 04/15/23 16:50 PRN PRN Flush Spironolactone 25 mg 04/16/22 09:00 04/16/22 10:27 Spironolactone 25 Mg Tablet PO 04/16/23 08:59 25 mg QAM NIKOLAS Administration Trazodone HCl 50 mg 04/16/22 22:00 04/16/22 21:48 Trazodone 50 Mg Tablet PO 04/16/23 21:59 50 mg QHS NIKOLAS Administration Vitamin D 125 mcg 04/16/22 09:00 04/17/22 08:11 Cholecalciferol 125 Mcg (5,000 Units) Capsule PO 04/16/23 08:59 125 mcg DAILY NIKOLAS Administration A&P - Hospitalist Assessment/Plan (1) Morbid obesity with BMI of 40.0-44.9, adult: (2) Status post right knee replacement: (3) Atrial fibrillation: (4) Hypertension: (5) Chronic anticoagulation: (6) Edema of both legs: Plan s/p right knee arthroplasty 04/14 -Further POC per PMR team for rehabilitative therapy, pain control and bowel regimen, DVT PPx, surgical wound care -Please defer any questions/concerns to orthopedic team including but not limited to pain management, ambulation instructions, wound care, wound infection, wound to bleed, outpatient follow-up. -Cefadroxil postop per orthopedic preference -Preop Hgb 1.3, trend labs Chronic conditions 1. A. fib on chronic anticoagulation, HTN?amlodipine, apixaban, carvedilol, allysine, lisinopril, spironolactone 2. Gout?allopurinol 3. TATIANA/obesity hypoventilation Hypertension. Blood pressure is on the low side. Patient has bilateral legs edema. Patient would need to be on diuretics I reduced amlodipine, hydralazine and the lisinopril dose to allow room for diuresis without compromising his hemodynamics. Further titration may be needed I started patient on Lasix 40 mg daily I requested venous study rule out DVT. Thank you for consulting us to see this pt. I will be off service starting Thursday. Case will be handled by one of my partners. Pt is fairly stable at this time. We will follow pt on an as needed basis. Please call or alert hospitalist if pt develops any signs or symptoms that may require medical evaluation and or intervention. Please arrange for pt after discharge follow up appts with PCP and other specialists. I may or may not have addressed all of patient symptoms, abnormal labs and imaging during this hospitalization. Please ask patient to ask PCP and out patient providers to obtain [facility] record entirely to follow up on illnesses, symptoms, abnormal findings that I have and have not addressed during this encounter and hospitalization in out patient setting. Documented By: Rain Ramos MD 04/17/22 0951 Signed By: <Electronically signed by Rain Ramos MD> 04/17/22 0955 [facility] Work Phone: 1(259) 713-296710-13-2022 Consult note Author Rain Ramos [facility] April 17, 2022 7:40am Note Date/Time April 16, 2022 6 :10pm [facility] [address] [place] [address] Hospitalist Consult Note Signed Patient: Al Kuo MR# : [id number] : 1945 Acct:[id number] Age/Sex: 76 / M Adm Date: 2 Loc: Room: 8Z0859-2 Type: ADM IN Attending Dr: Delmer Wyhte MD Copies to: MD Delmer Waldron MD Lynn A Stackhouse, ANP- Rain Ramos MD~ HPI DATE OF CONSULTATION: 04/16/22 REQUESTING PROVIDER: Delmer Whyte Consult Narrative Reason for Consult: Fib, hypertension HPI: 76-year-old male past medical history significant for colon cancer, A. fib, hypertension, LVH, pulmonary hypertension, sleep apnea. Presented to the hospital April 14 for elective right total knee arthroplasty for primary rightknee osteoarthritis per orthopedic services. He had a normal complicated postopcourse. Seen by therapy services and subsequently transferred to the acute inpatient rehab unit April 15. Hospitalist team placed on consultation for management of A. fib, hypertension. Patient seen and examined. Endorses right knee postoperative pain as anticipated. Offers no other significant complaints. Denies chest pain or palpitations. No cough, dyspnea, or pain with inspiration. No abdominal pain or indigestion, constipation or diarrhea, nausea or vomiting. No dysuria or retention. No headache or dizziness. No fevers or chills. Review of Systems Review of Systems All other systems reviewed & are negative unless noted below or in HPI [facility] Attestation Statement: The following information was validated with the patient. Vaccinated for COVID-19?: Yes Medical History Atrial fibrillation Colon cancer Edema Gout History of cardioversion Hypertension LVH (left ventricular hypertrophy) Secondary pulmonary hypertension Sleep apnea Surgical History History of colon resection x 2 History of hernia repair History of lumbar surgery History of phacoemulsification of cataract of both eyes with intraocular lens implantation Family History Father Heart attack Mother Dementia Sister Colon cancer Social History Smoking Status: Former smoker Tobacco Type: cigarettes Substance Use Type: Alcohol Substance Abuse Comment: 3-4 beer daily Meds Medications and Allergies Allergies No Known Allergies Allergy (Verified 03/31/22 13:58) Home Medications allopurinol 300 mg tablet 300 mg PO QAM gout prevention 09/05/20 [History Confirmed 04/15/22] apixaban 5 mg tablet (Eliquis) 5 mg PO BID h/o a fib 09/05/20 [History Confirmed 04/15/22] carvedilol 25 mg tablet 25 mg PO BID 09/05/20 [History Confirmed 04/15/22] hydralazine 100 mg tablet 100 mg PO BID htn 09/05/20 [History Confirmed 04/15/22] hydrochlorothiazide 25 mg tablet 25 mg PO QAM edema 09/05/20 [History Confirmed 04/15/22] lisinopril 40 mg tablet 40 mg PO QAM htn 09/05/20 [History Confirmed 04/15/22] amlodipine 10 mg tablet 10 mg PO DAILY 03/31/22 [History Confirmed 04/15/22] cholecalciferol (vitamin D3) 25 mcg (1,000 unit) tablet 5,000 unit PO DAILY 03/31/22 [History Confirmed 04/15/22] spironolactone 25 mg tablet 25 mg PO QAM 03/31/22 [History Confirmed 04/15/22] acetaminophen 500 mg tablet 1,000 mg PO Q8H 04/15/22 [Rx Confirmed 04/15/22] ascorbic acid (vitamin C) 500 mg tablet (Vitamin C) 500 mg PO BID.WITH.MEALS 04/15/22 [Rx Confirmed 04/15/22] cefadroxil 500 mg capsule 500 mg PO BID 04/15/22 [Rx Confirmed 04/15/22] cyanocobalamin (vitamin B-12) 1,000 mcg tablet 1,000 mcg PO QAM 30 days #30 tabs1 [Rx Confirmed 04/15/22] ferrous sulfate 324 mg (65 mg iron) tablet,delayed release 324 mg PO BID.WITH.MEALS 04/15/22 [Rx Confirmed 04/15/22] folic acid 1 mg tablet 1 mg PO DAILY 30 days #30 tabs 04/15/22 [Rx Confirmed 04/15/22] ondansetron 4 mg disintegrating tablet 8 mg PO TID PRN Nausea 04/15/22 [Rx Confirmed 04/15/22] oxycodone 5 mg tablet 5 mg PO Q4HR PRN Pain Scale 6 - 10 04/15/22 [Rx Confirmed 04/15/22] polyethylene glycol 3350 17 gram oral powder packet (Miralax) 17 g PO DAILY PRN Constipation 04/15/22 [Rx Confirmed 04/15/22] sennosides 8.6 mg-docusate sodium 50 mg tablet (Stool Softener-Stimulant Laxative) 2 tab PO DAILY 04/15/22 [Rx Confirmed 04/15/22] tramadol 50 mg tablet 50 mg PO Q4H PRN Pain Scale 1 - 5 04/15/22 [Rx Confirmed 04/15/22] Active Medications: Active Medications Generic Name Dose Route Start Last Admin Trade Name [id number] PRN Reason Stop Dose Admin Acetaminophen 1,000 mg 04/15/22 16:45 04/16/22 16:59 Acetaminophen 500 Mg Tablet PO 04/15/23 16:44 1,000 mg Q8H NIKOLAS Administration Al Hydrox/Mg Hydrox/Simethicone 30 ml 04/15/22 16:51 Mag Hydrox/Al Hydrox/Simeth 30 Ml Udc PO 04/15/23 16:50 Q4H PRN Indigestion Allopurinol 300 mg 04/16/22 09:00 04/16/22 10:28 Allopurinol 300 Mg Tablet PO 04/16/23 08:59 300 mg QAM NIKOLAS Administration Amlodipine Besylate 10 mg 04/16/22 09:00 04/16/22 10:28 Amlodipine 10 Mg Tablet PO 04/16/23 08:59 10 mg DAILY NIKOLAS Administration Apixaban 5 mg 04/15/22 21:00 04/16/22 10:28 Apixaban 5 Mg Tablet PO 04/15/23 20:59 5 mg BID NIKOLAS Administration Ascorbic Acid 500 mg 04/15/22 17:00 04/16/22 16:59 Ascorbic Acid 500 Mg Tablet PO 04/15/23 16:59 500 mg BID.WITH.MEALS NIKOLAS Administration Bisacodyl 10 mg 04/15/22 16:51 Bisacodyl 10 Mg Supp.Rect TN 04/15/23 16:50 DAILY PRN Constipation Carvedilol 25 mg 04/15/22 21:00 04/16/22 10:29 Carvedilol 25 Mg Tablet PO 04/15/23 20:59 25 mg BID NIKOLAS Administration Cefadroxil 500 mg 04/15/22 21:00 04/16/22 10:27 Cefadroxil 500 Mg Capsule PO 04/22/22 23:59 500 mg BID NIKOLAS Administration Cyanocobalamin 1,000 mcg 04/16/22 09:00 04/16/22 10:28 Cyanocobalamin 1,000 Mcg Tablet PO 04/16/23 08:59 1,000 mcg QAM NIKOLAS Administration Docusate Sodium 100 mg 04/15/22 16:51 Docusate 100 Mg Capsule PO 04/15/23 16:50 BID PRN Constipation Docusate Sodium 283 mg 04/15/22 16:51 Docusate Enema 283 Mg/5 Ml Enema TN 04/15/23 16:50 DAILY PRN Constipation Ferrous Sulfate 324 mg 04/16/22 10:00 04/16/22 10:36 Ferrous Sulfate 324 Mg Tablet.Dr PO 04/16/23 09:59 324 mg Q48H NIKOLAS Administration Folic Acid 1 mg 04/16/22 09:00 04/16/22 10:27 Folic Acid 1 Mg Tablet PO 04/16/23 08:59 1 mg DAILY NIKOLAS Administration Hydralazine HCl 100 mg 04/15/22 21:00 04/16/22 10:30 Hydralazine 50 Mg Tablet PO 04/15/23 20:59 100 mg BID NIKOLAS Administration Lactulose 30 gm 04/15/22 16:51 Lactulose 20 Gm/30 Ml Udc PO 04/15/23 16:50 DAILY PRN Constipation Lisinopril 40 mg 04/16/22 09:00 04/16/22 10:28 Lisinopril 40 Mg Tablet PO 04/16/23 08:59 40 mg QAM NIKOLAS Administration Melatonin 5 mg 04/16/22 22:00 Melatonin 5 Mg Tablet PO 04/16/23 21:59 QHS NIKOLAS Ondansetron HCl 8 mg 04/15/22 16:42 Ondansetron Odt 4 Mg Tab.Rapdis PO 04/15/23 16:41 TID PRN Nausea Oxycodone HCl 5 mg 04/15/22 16:42 04/16/22 16:59 Oxycodone Ir 5 Mg Tablet PO 5 mg Q4HR PRN Administration Pain Scale 6 - 10 Polyethylene Glycol 17 gm 04/15/22 16:42 Polyethylene Glycol 3350 17 Gm Powd.Pack PO 04/15/23 16:41 DAILY PRN Constipation Senna/Docusate Sodium 2 tab 04/16/22 09:00 04/16/22 10:28 Sennosides/Docusate 8.6-50mg 1 Tab Tablet PO 04/16/23 08:59 2 tab DAILY NIKOLAS Administration Sennosides 2 tab 04/16/22 12:00 Sennosides 8.6 Mg Tablet PO 04/16/23 11:59 DAILY@12 PRN If no BM in 2 days Sodium Chloride 0 ml 04/15/22 16:51 Sodium Chloride 0.9 % 10 Ml Syringe IV-PUSH 04/15/23 16:50 PRN PRN Flush Spironolactone 25 mg 04/16/22 09:00 04/16/22 10:27 Spironolactone 25 Mg Tablet PO 04/16/23 08:59 25 mg QAM NIKOLAS Administration Trazodone HCl 50 mg 04/16/22 22:00 Trazodone 50 Mg Tablet PO 04/16/23 21:59 QHS [facility] Vitamin D 125 mcg 04/16/22 09:00 04/16/22 10:27 Cholecalciferol 125 Mcg (5,000 Units) Capsule PO 04/16/23 08:59 125 mcg DAILY NIKOLAS Administration Exam Physical Exam Vital Signs: Temp Pulse Resp BP Pulse Ox O2 Del Method 98.7 F 93 H 18 104/65 96 Room Air 04/16/22 14:57 04/16/22 14:57 04/16/22 14:57 04/16/22 14:57 04/16/22 14:57 04/16/22 14:57 Narrative: CONST- alert, in bed, no acute distress HEAD- normocephalic and atraumatic EENT- sclera nonicteric and conjunctiva nonerythemic, moist oral mucosa, pharynxclear NECK- supple, no cervical lymphadenopathy CARDIAC- RRR no abnormal heart tones PULM- diminished without wheeze or rhonchi, RA, no accessory muscle use or coughnoted ABD- S/NT, NABS, obese EXTREM- no edema BLE, calves nontender SKIN- W/D, good turgor, right knee dressing in place surgical site not seen MS- MAEx4 spontaneously NEURO- A&Ox3, speech clear and tongue midline, equal facial symmetry PSYCH-mood and behavior appropriate Results Lab Results Labs: Laboratory Results - last 72 hr 04/16/22 06:08: PHA Creatinine Clear 81.90, Sodium 130 L, Potassium 4.2, Chloride 95, Carbon Dioxide 26.2, Anion Gap 13.0, BUN 22, Creatinine 1.05, Est GFR ( Amer) > 60, Est GFR (Non-Af Amer) > 60, Glucose 137 H, Calcium 8.6,Total Bilirubin 0.8, AST 13, ALT 7 L, Alkaline Phosphatase 38, Total Protein 5.0L, Albumin 2.6 L, Globulin 2.4, Albumin/Globulin Ratio 1.1, Prealbumin 15.3 L A&P - Hospitalist Assessment/Plan (1) Morbid obesity with BMI of 40.0-44.9, adult: (2) Status post right knee replacement: (3) Atrial fibrillation: (4) Hypertension: (5) Chronic anticoagulation: Plan s/p right knee arthroplasty 04/14 -Further POC per PMR team for rehabilitative therapy, pain control and bowel regimen, DVT PPx, surgical wound care -Please defer any questions/concerns to orthopedic team. -Cefadroxil postop per orthopedic preference -Preop Hgb 1.3, trend labs Chronic conditions 1. A. fib on chronic anticoagulation, HTN?amlodipine, apixaban, carvedilol, allysine, lisinopril, spironolactone 2. Gout?allopurinol 3. TATIANA/obesity hypoventilation Documented By: BARBIE Constantino 2 1800 Signed By: <Electronically signed by BARBIE Archuleta> 04/16/221811 <Electronically signed by Rain Ramos MD> 04/17/22 07[address] [facility] Work Phone: 1(817) 324-748610-12-2022 History and physical note Author Delmer Whyte [facility] April 16, 2022 3:15pm Note Date/Time April 16, 2022 1 0:07am [facility] [address] [place] [address] Physiatry (Rehab) H&P Signed Patient: Al Kuo MR# : [id number] : 1945 Acct:[id number] Age/Sex: 76 / M Adm Date: 2 Loc: Room: [address] [place] [address] Type: ADM IN Attending Dr: Delmer Whyte MD Copies to: MD Delmer Waldron MD~ Date of Service: 04/16/2022 HPI The patient was seen and examined on: 04/16/22 History of Present Illness: Mr. Kuo is a 76-year-old male with past medical history as above admitted to the rehabilitation unit with functional impairment status post righttotal knee arthroplasty complicated by morbid obesity, BMI 43.1. Pain and had progressive right knee pain, which failed conservative management. Robotic assisted right total knee arthroplasty completed on April 14. Postoperative course uncomplicated. Recommended for inpatient rehab by orthopedic surgeon and therapy. Recovery complicated by body habitus as noted. Chronic conditions including morbid obesity, hypertension, atrial fibrillation, gout are stable with current management. [facility] Attestation Statement: The following information was validated with the patient. Vaccinated for COVID-19?: Yes Medical History Atrial fibrillation Colon cancer Edema Gout History of cardioversion Hypertension LVH (left ventricular hypertrophy) Secondary pulmonary hypertension Sleep apnea Surgical History History of colon resection x 2 History of hernia repair History of lumbar surgery History of phacoemulsification of cataract of both eyes with intraocular lens implantation Family History Father Heart attack Mother Dementia Sister Colon cancer Social History Smoking Status: Former smoker Tobacco Type: cigarettes Substance Use Type: Alcohol Substance Abuse Comment: 3-4 beer daily Review of Systems Review of Systems Review of systems: Constitutional: Reports system reviewed and no additional complaints, except as documented Cardiovascular: Reports system reviewed and no additional complaints, except as documented Respiratory: Reports system reviewed and no additional complaints, except as documented Gastrointestinal: Reports system reviewed and no additional complaints, except as documented Genitourinary: Reports system reviewed and no additional complaints, except as documented Musculoskeletal: Reports system reviewed and no additional complaints, except asdocumented Skin: Reports system reviewed and no additional complaints, except as documented Neurologic: Reports system reviewed and no additional complaints, except as documented, Psychiatric: Reports system reviewed and no additional complaints, except as documented Meds Medications and Allergies Allergies No Known Allergies Allergy (Verified 03/31/22 13:58) Home and Active Meds: Home Medications allopurinol 300 mg tablet 300 mg PO QAM gout prevention 09/05/20 [History Confirmed 04/15/22] apixaban 5 mg tablet (Eliquis) 5 mg PO BID h/o a fib 09/05/20 [History Confirmed 04/15/22] carvedilol 25 mg tablet 25 mg PO BID 09/05/20 [History Confirmed 04/15/22] hydralazine 100 mg tablet 100 mg PO BID htn 09/05/20 [History Confirmed 04/15/22] hydrochlorothiazide 25 mg tablet 25 mg PO QAM edema 09/05/20 [History Confirmed 04/15/22] lisinopril 40 mg tablet 40 mg PO QAM htn 09/05/20 [History Confirmed 04/15/22] amlodipine 10 mg tablet 10 mg PO DAILY 03/31/22 [History Confirmed 04/15/22] cholecalciferol (vitamin D3) 25 mcg (1,000 unit) tablet 5,000 unit PO DAILY 03/31/22 [History Confirmed 04/15/22] spironolactone 25 mg tablet 25 mg PO QAM 03/31/22 [History Confirmed 04/15/22] acetaminophen 500 mg tablet 1,000 mg PO Q8H 04/15/22 [Rx Confirmed 04/15/22] ascorbic acid (vitamin C) 500 mg tablet (Vitamin C) 500 mg PO BID.WITH.MEALS 04/15/22 [Rx Confirmed 04/15/22] cefadroxil 500 mg capsule 500 mg PO BID 04/15/22 [Rx Confirmed 04/15/22] cyanocobalamin (vitamin B-12) 1,000 mcg tablet 1,000 mcg PO QAM 30 days #30 tabs1 [Rx Confirmed 04/15/22] ferrous sulfate 324 mg (65 mg iron) tablet,delayed release 324 mg PO BID.WITH.MEALS 04/15/22 [Rx Confirmed 04/15/22] folic acid 1 mg tablet 1 mg PO DAILY 30 days #30 tabs 04/15/22 [Rx Confirmed 04/15/22] ondansetron 4 mg disintegrating tablet 8 mg PO TID PRN Nausea 04/15/22 [Rx Confirmed 04/15/22] oxycodone 5 mg tablet 5 mg PO Q4HR PRN Pain Scale 6 - 10 04/15/22 [Rx Confirmed 04/15/22] polyethylene glycol 3350 17 gram oral powder packet (Miralax) 17 g PO DAILY PRN Constipation 04/15/22 [Rx Confirmed 04/15/22] sennosides 8.6 mg-docusate sodium 50 mg tablet (Stool Softener-Stimulant Laxative) 2 tab PO DAILY 04/15/22 [Rx Confirmed 04/15/22] tramadol 50 mg tablet 50 mg PO Q4H PRN Pain Scale 1 - 5 04/15/22 [Rx Confirmed 04/15/22] Active Medications Acetaminophen (Acetaminophen 500 Mg Tablet) 1,000 mg PO Q8H NIKOLAS Stop: 04/15/23 16:44 Last Admin: 04/16/22 02:18 Dose: 1,000 mg Al Hydrox/Mg Hydrox/Simethicone (Mag Hydrox/Al Hydrox/Simeth 30 Ml Udc) 30 ml PO Q4H PRN PRN Reason: Indigestion Stop: 04/15/23 16:50 Allopurinol (Allopurinol 300 Mg Tablet) 300 mg PO QAM NIKOLAS Stop: 04/16/23 08:59 Amlodipine Besylate (Amlodipine 10 Mg Tablet) 10 mg PO DAILY NIKOLAS Stop: 04/16/23 08:59 Apixaban (Apixaban 5 Mg Tablet) 5 mg PO BID NIKOLAS Stop: 04/15/23 20:59 Last Admin: 04/15/22 21:39 Dose: 5 mg Ascorbic Acid (Ascorbic Acid 500 Mg Tablet) 500 mg PO BID.WITH.MEALS NIKOLAS Stop: 04/15/23 16:59 Last Admin: 04/15/22 20:03 Dose: 500 mg Bisacodyl (Bisacodyl 10 Mg Supp.Rect) 10 mg TN DAILY PRN PRN Reason: Constipation Stop: 04/15/23 16:50 Carvedilol (Carvedilol 25 Mg Tablet) 25 mg PO BID [facility] Stop: 04/15/23 20:59 Last Admin: 04/15/22 21:39 Dose: 25 mg Cefadroxil (Cefadroxil 500 Mg Capsule) 500 mg PO BID [facility] Stop: 04/22/22 23:59 Last Admin: 04/15/22 21:39 Dose: 500 mg Cyanocobalamin (Cyanocobalamin 1,000 Mcg Tablet) 1,000 mcg PO QAM [facility] Stop: 04/16/23 08:59 Docusate Sodium (Docusate 100 Mg Capsule) 100 mg PO BID PRN PRN Reason: Constipation Stop: 04/15/23 16:50 Docusate Sodium (Docusate Enema 283 Mg/5 Ml Enema) 283 mg TN DAILY PRN PRN Reason: Constipation Stop: 04/15/23 16:50 Ferrous Sulfate (Ferrous Sulfate 324 Mg Tablet.Dr) 324 mg PO Q48H [facility] Stop: 04/16/23 09:59 Folic Acid (Folic Acid 1 Mg Tablet) 1 mg PO DAILY [facility] Stop: 04/16/23 08:59 Hydralazine HCl (Hydralazine 50 Mg Tablet) 100 mg PO BID [facility] Stop: 04/15/23 20:59 Last Admin: 04/15/22 21:38 Dose: 100 mg Lactulose (Lactulose 20 Gm/30 Ml Udc) 30 gm PO DAILY PRN PRN Reason: Constipation Stop: 04/15/23 16:50 Lisinopril (Lisinopril 40 Mg Tablet) 40 mg PO QAM [facility] Stop: 04/16/23 08:59 Ondansetron HCl (Ondansetron Odt 4 Mg Tab.Rapdis) 8 mg PO TID PRN PRN Reason: Nausea Stop: 04/15/23 16:41 Oxycodone HCl (Oxycodone Ir 5 Mg Tablet) 5 mg PO Q4HR PRN PRN Reason: Pain Scale 6 - 10 Last Admin: 04/16/22 02:18 Dose: 5 mg Polyethylene Glycol (Polyethylene Glycol 3350 17 Gm Powd.Pack) 17 gm PO DAILY PRN PRN Reason: Constipation Stop: 04/15/23 16:41 Senna/Docusate Sodium (Sennosides/Docusate 8.6-50mg 1 Tab Tablet) 2 tab PO DAILY NIKOLAS Stop: 04/16/23 08:59 Sennosides (Sennosides 8.6 Mg Tablet) 2 tab PO DAILY@12 PRN PRN Reason: If no BM in 2 days Stop: 04/16/23 11:59 Sodium Chloride (Sodium Chloride 0.9 % 10 Ml Syringe) 0 ml IV-PUSH PRN PRN PRN Reason: Flush Stop: 04/15/23 16:50 Spironolactone (Spironolactone 25 Mg Tablet) 25 mg PO QAM NIKOLAS Stop: 04/16/23 08:59 Trazodone HCl (Trazodone 50 Mg Tablet) 50 mg PO QHS NIKOLAS Stop: 04/16/23 21:59 Vitamin D (Cholecalciferol 125 Mcg (5,000 Units) Capsule) 125 mcg PO DAILY NIKOLAS Stop: 04/16/23 08:59 Exam Physical Exam Vital Signs: Temp Pulse Resp BP Pulse Ox O2 Del Method 98.5 F 78 18 120/55 L 94 L Room Air 04/16/22 05:53 04/16/22 05:53 04/16/22 05:53 04/16/22 05:53 04/16/22 05:53 04/16/22 05:53 Narrative: General: cooperative, comfortable [facility] Head: normal to inspection Eyes General: appearance normal, both eyes and all related structures Neck Neck: normal visual inspection, no lymphadenopathy Resp Effort & Inspection: normal respiratory effort Auscultation: clear to auscultation bilaterally Cardio Rate: regular rate Rhythm: regular rhythm Heart Sounds: S1 normal, S2 normal GI Inspection: normal to inspection Auscultation: normal bowel sounds Neuro Cranial Nerves: CN's II-XI intact bilaterally Cognition: normal cognition Speech: speech normal Motor: strength 5/5 throughout Sensory Exam: no sensory deficits noted Plantar Reflexes: Downgoing Deep Tendon Reflexes DTR Comments: 1+ and symmetric Extrem Minimal edema, right knee dressed Psych Mood: normal affect Affect: normal affect Endurance fair Results Labs Labs: Laboratory Results - last 24 hr 04/16/22 06:08 PHA Creatinine Clear 81.90 Sodium 130 L Potassium 4.2 Chloride 95 Carbon Dioxide 26.2 Anion Gap 13.0 BUN 22 Creatinine 1.05 Est GFR ( Amer) > 60 Est GFR (Non-Af Amer) > 60 Glucose 137 H Calcium 8.6 Total Bilirubin 0.8 AST 13 ALT 7 L Alkaline Phosphatase 38 Total Protein 5.0 L Albumin 2.6 L Globulin 2.4 Albumin/Globulin Ratio 1.1 Prealbumin 15.3 L Additional Results Results Comment: I reviewed clinical lab tests, radiology reports and obtained and summated medical records and have ordered follow up lab tests and imaging studies as needed for rehabilitation care. Individualized Plan of Care Individualized Plan of Care Plan of Care: Individualized Overall Plan of Care: Admit Date/Time: April 15, 2022 Expected LOS: 10 days Expected Discharge Destination: Home Rehabilitation [facility]: Primary Diagnosis:Right total knee arthroplasty; morbid obesity Patient?s/Family?s anticipated outcomes/personal goals: To have patient become more independent and to return home. Medical/ Functional Prognosis: Good Anticipated Functional Outcomes/Goals and Interventions: -Therapy Functional Outcome/Goal: Mobility/Locomotion: Patient likely to be modified independent with ambulation with assistive device. Anticipated interventions: Physician management, PT, Nutrition, Rehab Nursing - Therapy Functional Outcome/Goal: Self Care: Patient likely to be functionally modified independent for activities of daily living using assistive / adaptive equipment as needed. Anticipated interventions: Physician management, PT, OT, Nutrition, Rehab Nursing - Therapy Functional Outcome/Goal: Bladder/Bowel Management: Patient likely to be modified independent with bladder care and independent with bowel care. Anticipated interventions: Physician management, PT, OT, Nutrition, Rehab Nursing -Therapy Functional Outcome/Goal: Communication/Cognition: Patient will be able to communicate fully and be safe cognitively. Anticipated interventions: Physician management, PT, OT, Nutrition, Rehab Nursing -Therapy Functional Outcome/Goal: Patient will have adequate pain control less than 4/10 and understand how to take pain medications to achieve pain control. Anticipated interventions: Physician management, PT, OT, Nutrition, Rehab Nursing -Therapy Functional Outcome/Goal: Patient will improve endurance to be able to tolerate all daily self care activities and avocational activities. Anticipated interventions: Physician management, PT, OT, Nutrition, Rehab Nursing -Therapy Functional Outcome/Goal: Patient will understand and assimilate / integrate education regarding management of their medical conditions to maintainhealth and wellbeing. Anticipated interventions: Physician management, PT, OT, Nutrition, Rehab Nursing Required Therapy PT: 1.5 hour per day at least 5 days per week with additional therapy on as needed basis. Comments: PT to improve pt's strength, endurance, bed mobility, transfers (sit-stand), standing balance, gait quality on level surfaces and stairs, coordination and functional ADL skills. Will also work to improve pt's safety awareness during transfers and ambulation. OT: 1.5 hour per day at least 5 days per week with additional therapy on as needed basis. Comments: OT for basic ADL re-training (bathing, dressing, toileting, continence, grooming, feeding, transferring), to increase activity tolerance andfunctional mobility and to evaluate for adaptive and assistive devices. Will work to improve pt's endurance and educate pt on fall prevention and energy conservation techniques-pacing strategies and proper breathing techniques duringfunctional tasks. Other: Nutrition, Rehab nursing, Wound, P&O RATIONALE FOR IRF ADMISSION: Patient has both medical and functional complexities that require 24 hour daily monitoring and intervention from Bank Advisor as well as other consulting physicians including internal medicine as well as 24 hour daily woodyard crane operator nursing - for medical safe / optimal management. Patient requires interdisciplinary therapy team rehabilitation care including OT, PT, SW, Psychology, Rehab Nursing, requires and can tolerate at least 3 hours of daily OT and PT therapy at least 5 days weekly. The following medical conditions significantly impact the rehabilitation process and are beingaddressed daily and can not be managed at home or in a lesser intense medical setting: Refer to above problem oriented plan of care Assessment/Plan (1) Status post right knee replacement: Plan: PT to improve pt's strength, endurance, bed mobility, transfers (sit-stand), standing balance, gait quality on level surfaces and stairs, coordination and functional ADL skills. Will also work to improve pt's safety awareness during transfers and ambulation. OT for basic ADL re-training (bathing, dressing, toileting, continence, grooming, feeding, transferring), to increase activity tolerance and functional mobility and to evaluate for adaptive and assistive devices. Will work to improve pt's endurance and educate pt on fall prevention and energy conservationtechniques-pacing strategies and proper breathing techniques during functional tasks. Patient education Pressure ulcer prophylaxis; encourage mobilization, frequent postural changes, pressure-relief techniques DVT prophylaxis Encourage deep breathing exercise incentive spirometry. Monitor bladder. Toileting schedule. Continue current bladder management, with scans as needed and CIC if needed. Start bowel care program every day to obtain continence, prevent ileus. Maintain fall precautions Gait and balance retraining Provision of the necessary gait aids and functional adaptive equipment to enhance the patient's a functional latter-day Encourage deep breathing exercises and incentive spirometry RD evaluation Ensure adequate nutrition and hydration Discharge planning. Code(s): Z96.651 - Presence of right artificial knee joint Status: Acute (2) B12 deficiency: Plan: Continue supplementation Code(s): E53.8 - Deficiency of other specified B group vitamins Status: Acute (3) Morbid obesity with BMI of 40.0-44.9, adult: Code(s): E66.01 - Morbid (severe) obesity due to excess calories; Z68.41 - Body mass index [BMI] 40.0-44.9, adult Status: Acute (4) Folate deficiency: Plan: Continue folate Code(s): E53.8 - Deficiency of other specified B group vitamins Status: Acute (5) Atrial fibrillation: Plan: Continue eliquis Code(s): I48.91 - Unspecified atrial fibrillation Status: Acute (6) Hyperlipidemia: Code(s): E78.5 - Hyperlipidemia, unspecified Status: Acute (7) Gout: Plan: Continue allopurinol Code(s): M10.9 - Gout, unspecified Status: Acute (8) TATIANA (obstructive sleep apnea): Code(s): G47.33 - Obstructive sleep apnea (adult) (pediatric) Status: Acute (9) Hypertension: Plan: Continue home regimen TREND BP Code(s): I10 - Essential (primary) hypertension Status: Acute (10) Osteoarthritis: Code(s): M19.90 - Unspecified osteoarthritis, unspecified site Status: Acute (11) Hyponatremia: Plan: Stable, trend Code(s): E87.1 - Hypo-osmolality and hyponatremia Status: Acute Plan 76-year-old male with past medical history as above admitted to the rehabilitation unit with functional impairment status post right total knee arthroplasty complicated by morbid obesity, BMI 43.1 Continue home medications as ordered Postoperative antibiotics per orthopedics Hospitalist to assist with management of comorbid medical conditions Pain control: Tylenol, topical modalities. Minimize opioids. Leonard ice. Bowel and bladder: Bowel regimen in place. Skin: Prevent skin breakdown. Monitor operative site. Sleep: Poor sleep reported. Initiate melatonin and trazodone. DVT prophylaxis: Covered with Eliquis. Functional status: Needs assist Discharge planning: Hopefully home in 1 to 2 weeks. Documented By: Delmer Whyte MD 04/16/22 1006 Signed By: <Electronically signed by Delmer Whyte MD> 04/16/22 4[address] [facility] Work Phone: 1(580) 599-661610-12-2022 Progress note Author Andrea Govea [facility] April 16, 2022 1:47pm Note Date/Time April 16, 2022 1 :47pm [facility] [address] [place] [address] Orthopedic Progress Note Signed Patient: Al Kuo MR# : [id number] : 1945 Acct:[id number] Age/Sex: 76 / M Adm Date: 2 Loc: Room: [address] [place] [address] Type: ADM IN Attending Dr: Delmer Whyte MD Copies to: ~ Date of Service: 04/16/2022 Exam Physical Exam Vital Signs: Temp Pulse Resp BP Pulse Ox O2 Del Method 98.5 F 106 H 18 125/72 94 L Room Air 04/16/22 05:53 04/16/22 10:37 04/16/22 05:53 04/16/22 10:37 04/16/22 05:53 04/16/22 10:00 Objective Labs Labs: Laboratory Results - last 24 hr 04/16/22 06:08 PHA Creatinine Clear 81.90 Sodium 130 L Potassium 4.2 Chloride 95 Carbon Dioxide 26.2 Anion Gap 13.0 BUN 22 Creatinine 1.05 Est GFR ( Amer) > 60 Est GFR (Non-Af Amer) > 60 Glucose 137 H Calcium 8.6 Total Bilirubin 0.8 AST 13 ALT 7 L Alkaline Phosphatase 38 Total Protein 5.0 L Albumin 2.6 L Globulin 2.4 Albumin/Globulin Ratio 1.1 Prealbumin 15.3 L Assessment / Plan Assessment and plan (1) Status post right knee replacement: Plan: POD 2 status post R TKA 1. Pain control 2. DVT prophylaxis: KARL Hose bilaterally, SCDs bilaterally, and home Eliquis 3. Perioperative antibiotics with Duricef x7 days postop 4. PT/OT: WBAT right lower extremity 5. Appreciate hospitalist assistance with medical management 6. Hemoglobin: 10.4 on postop day 1.? Continue iron and vitamin C 7. Hypoalbuminemia of 2.6 today while on the rehab floor, recommended Bene protein supplementation and nutrition education 8. Today's plan: Work with PT/OT 9. Follow-up with me in the office at 2 to 2-1/2 weeks postop as regularly scheduled. If the patient is still in the rehab unit when his Prevena is ready to come off, please remove it and notify me of its removal. Please leave the Zipline in place. If he is discharged from the rehab unit prior to the Prevena running out of battery, please have home health physical therapy remove the Blanca prior to his postop follow-up with me in the office. Please call with any questions or concerns. Code(s): Z96.651 - Presence of right artificial knee joint Status: Acute (2) B12 deficiency: Code(s): E53.8 - Deficiency of other specified B group vitamins Status: Acute (3) Morbid obesity with BMI of 40.0-44.9, adult: Code(s): E66.01 - Morbid (severe) obesity due to excess calories; Z68.41 - Body mass index [BMI] 40.0-44.9, adult Status: Acute (4) Folate deficiency: Code(s): E53.8 - Deficiency of other specified B group vitamins Status: Acute (5) Atrial fibrillation: Code(s): I48.91 - Unspecified atrial fibrillation Status: Acute (6) Hyperlipidemia: Code(s): E78.5 - Hyperlipidemia, unspecified Status: Acute (7) Gout: Code(s): M10.9 - Gout, unspecified Status: Acute (8) TATIANA (obstructive sleep apnea): Code(s): G47.33 - Obstructive sleep apnea (adult) (pediatric) Status: Acute (9) Hypertension: Code(s): I10 - Essential (primary) hypertension Status: Acute (10) Osteoarthritis: Code(s): M19.90 - Unspecified osteoarthritis, unspecified site Status: Acute (11) Hyponatremia: Code(s): E87.1 - Hypo-osmolality and hyponatremia Status: Acute Documented By: Andrea Govea MD 04/16/22 13 44 Signed By: <Electronically signed by Andrea Govea MD> 04/16/22 9768 [facility] Work Phone: 1(480) 186-607610-11-2022 Progress note Author Andrea Govea [facility] April 15, 2022 7:45am Note Date/Time April 15, 2022 7 :45am [facility] [address] [place] [address] Orthopedic Progress Note Signed Patient: Al Kuo MR# : [id number] : 1945 Acct:[id number] Age/Sex: 76 / M Adm Date: 2 Loc: Room: 8B6022-4 Type: REG SDC Attending Dr: Andrea Goeva II, MD Copies to: ~ Date of Service: 04/15/2022 Subjective Subjective Interval History: Patient sleeping upon entering this morning. He reports he is doing pretty well. Not complaining of any pain in the knee. He did get up to the edge of the bed overnight to urinate. Nursing does not report any acute events overnight. Patient denies any chest pain, shortness of breath, or calf pain Exam Physical Exam Vital Signs: Temp Pulse Resp BP Pulse Ox O2 Del Method O2 Flow Rate 98.4 F 94 H 18 146/74 H 95 Room Air 2 04/15/22 04:05 04/15/22 04:05 04/15/22 04:05 04/15/22 04:05 04/15/22 04:05 04/15/22 04:05 04/14/22 19:48 Narrative: Right knee immobilizer is in place. Blanca is on and working with no drainagein the container. Foot is warm and perfused. Sensation intact to light touch throughout the foot. Wiggles his toes moves his ankle up and down. Objective Labs Labs: Laboratory Results - last 24 hr 04/14/22 04/14/22 04/15/22 09:50 09:50 06:06 Corrected WBC 9.1 12.1 H Uncorrected WBC Count 9.1 12.1 H RBC 3.15 L 2.93 L Hgb 11.3 L 10.4 L Hct 32.4 L 30.2 L MCV 102.8 H 103.0 H MCH 36.0 H 35.5 H MCHC 35.0 34.5 RDW 14.0 14.0 Plt Count 132 L 128 L MPV 7.4 7.6 Neut % (Auto) 83.0 91.6 Lymph % (Auto) 6.6 3.5 [place] % (Auto) 7.8 4.8 Eos % (Auto) 2.2 0.0 Baso % (Auto) 0.4 0.1 Neut # (Auto) 7.5 11.1 H Lymph # (Auto) 0.6 L 0.4 L [place] # (Auto) 0.7 0.6 Eos # (Auto) 0.2 0.0 Baso # (Auto) 0.0 0.0 Nucleated RBC % (auto) 0.0 0.0 PHA Creatinine Clear 69.02 Sodium 131 L Potassium 4.3 Chloride 98 Carbon Dioxide 25.3 Anion Gap 12.0 BUN 21 Creatinine 1.21 Est GFR ( Amer) > 60 Est GFR (Non-Af Amer) 58 Glucose 134 H Calcium 9.2 Vitamin B12 Folate TSH 3rd Generation 04/15/22 06:06 Corrected WBC Uncorrected WBC Count RBC Hgb Hct MCV MCH MCHC RDW Plt Count MPV Neut % (Auto) Lymph % (Auto) [place] % (Auto) Eos % (Auto) Baso % (Auto) Neut # (Auto) Lymph # (Auto) [place] # (Auto) Eos # (Auto) Baso # (Auto) Nucleated RBC % (auto) PHA Creatinine Clear 70.06 Sodium 128 L Potassium 4.6 Chloride 94 L Carbon Dioxide 24.7 Anion Gap 13.9 BUN 21 Creatinine 1.20 Est GFR ( Amer) > 60 Est GFR (Non-Af Amer) 59 Glucose 192 H Calcium 8.9 Vitamin B12 238 Folate 5.0 L TSH 3rd Generation 0.42 L Assessment / Plan Assessment and plan (1) Osteoarthritis: Code(s): M19.90 - Unspecified osteoarthritis, unspecified site Status: Acute (2) Hypertension: Code(s): I10 - Essential (primary) hypertension Status: Acute (3) TATIANA (obstructive sleep apnea): Code(s): G47.33 - Obstructive sleep apnea (adult) (pediatric) Status: Acute (4) Hyperlipidemia: Code(s): E78.5 - Hyperlipidemia, unspecified Status: Acute (5) Gout: Code(s): M10.9 - Gout, unspecified Status: Acute (6) Hyperlipidemia: Code(s): E78.5 - Hyperlipidemia, unspecified Status: Acute (7) Status post right knee replacement: Plan: POD 1 status post R TKA 1. Pain control 2. DVT prophylaxis: KARL Hose bilaterally, SCDs bilaterally, and home Eliquis to start this morning 3. Perioperative antibiotics with IV Ancef and then 7 days of Duricef 4. PT/OT: WBAT right lower extremity 5. Appreciate hospitalist assistance with medical management 6. Hemoglobin: 10.4 today. Continue iron and vitamin C 7. Today's plan: Work with PT/OT 8. Disposition: Home health PT versus acute inpatient rehab based on his PT/OT eval today Code(s): Z96.651 - Presence of right artificial knee joint Status: Acute Documented By: Andrea Govea MD 04/15/22 07 43 Signed By: <Electronically signed by Andrea Govea MD> 04/15/22 0745 [facility] Work Phone: [phone]) 936-158210-10-2022 Consult note Author Tonya Mcgregor [facility] April 14, 2022 7:53pm Note Date/Time April 14, 2022 7 :51pm [facility] [address] [place] [address] Hospitalist Consult Note Signed with Addenda Patient: Al Kuo MR# : [id number] : 1945 Acct:[id number] Age/Sex: 76 / M Adm Date: 2 Loc: 4N Room: 6U0984-0 Type: REG SDC Attending Dr: Andrea Govea II, MD Copies to: MD Tonya Waldron, DO Andrea Govea MD~ ADDENDUM1 Addendum: Hypertension: Continue home medications -lisinopril 40 mg daily and hydralazine. Addendum Documented By: Tonya Mcgregor DO 04/14/221952 Addendum Signed By: <Electronically signed by Tonya Mcgregor DO> 04/14/221952 HPI DATE OF CONSULTATION: 04/14/22 REQUESTING PROVIDER: Andrea Govea II Consult Narrative Reason for Consult: HTN, HLD, CAD, lymphedema HPI: 76-year-old male with a past medical history of hypertension, hyperlipidemia,Atrial fibrillation anticoagulated on Eliquis, colon cancer status post colon resection ,TATIANA, pulmonary hypertension,OA admitted postoperatively following right total knee arthroplasty. Hospitalist service consulted for management of hypertension, hyperlipidemia, lymphedema. Patient states he is doing well postoperatively, sitting up in the bed and eating dinner. He reports pain is well controlled. Vital signs are stable. Labs from earlier today reviewed shows a chronic macrocytic anemia and Hbg is at recent baseline. He also has a chronic mild hyponatremia with sodium of 131. Blood pressure is well controlled. Home medications were reviewed. 12 point review systems negative unless noted above Social history notable for alcohol use, patient drinks 3-4 beers nightly, deniesprior symptoms of withdrawal General: NAD, alert and oriented x3 HEENT: Normocephalic, atraumatic, pupils are equal and reactive to light, neck is supple and trachea is midline Lungs: Clear on auscultation bilaterally, no wheezing or rhonchi Cardio: RRR Abdomen: Soft, nondistended, nontender to palpation, bowel sounds are present throughout LE: 1+ bilateral edema, right lower extremity is in brace, left lower extremity with compression stockings Neuro: A&O X3, Speech is clear Skin: Warm and dry Psych: Appropriate mood and affect PMFSH Vaccinated for COVID-19?: Yes Medical History (Updated 04/14/22 @ 19:45 by Tonya Mcgregor DO) Atrial fibrillation Colon cancer Edema Gout History of cardioversion Hypertension LVH (left ventricular hypertrophy) Secondary pulmonary hypertension Sleep apnea Surgical History History of colon resection x 2 History of hernia repair History of lumbar surgery History of phacoemulsification of cataract of both eyes with intraocular lens implantation Family History Father Heart attack Mother Dementia Sister Colon cancer Social History Smoking Status: Former smoker Substance Use Type: Alcohol Substance Abuse Comment: 3-4 beer daily Meds Medications and Allergies Allergies No Known Allergies Allergy (Verified 03/31/22 13:58) Home Medications allopurinol 300 mg tablet 300 mg PO QAM gout prevention 09/05/20 [History Confirmed 03/31/22] apixaban 5 mg tablet (Eliquis) 5 mg PO BID h/o a fib 09/05/20 [History Confirmed 04/14/22] carvedilol 25 mg tablet 25 mg PO BID 09/05/20 [History Confirmed 03/31/22] diclofenac sodium 75 mg tablet,delayed release 75 mg PO BID 09/05/20 [History Confirmed 03/31/22] hydralazine 100 mg tablet 100 mg PO BID htn 09/05/20 [History Confirmed 03/31/22] hydrochlorothiazide 25 mg tablet 25 mg PO QAM edema 09/05/20 [History Confirmed 03/31/22] lisinopril 40 mg tablet 40 mg PO QAM htn 09/05/20 [History Confirmed 03/31/22] amlodipine 10 mg tablet 10 mg PO DAILY 03/31/22 [History Confirmed 03/31/22] ascorbic acid (vitamin C) 500 mg tablet 500 mg PO DAILY 03/31/22 [History Confirmed 03/31/22] cholecalciferol (vitamin D3) 25 mcg (1,000 unit) tablet 5,000 unit PO DAILY 03/31/22 [History Confirmed 03/31/22] ferrous sulfate 325 mg (65 mg iron) tablet 325 mg PO DAILY 03/31/22 [History Confirmed 03/31/22] spironolactone 25 mg tablet 25 mg PO QAM 03/31/22 [History Confirmed 03/31/22] Active Medications: Active Medications Generic Name Dose Route Start Last Admin Trade Name Freq PRN Reason Stop Dose Admin Acetaminophen 1,000 mg 04/14/22 10:45 04/14/22 18:53 Acetaminophen 500 Mg Tablet PO 04/14/23 10:44 1,000 mg Q8H NIKOLAS Administration Allopurinol 300 mg 04/15/22 09:00 Allopurinol 300 Mg Tablet PO 04/15/23 08:59 QAM NIKOLAS Amlodipine Besylate 10 mg 04/15/22 09:00 Amlodipine 10 Mg Tablet PO 04/15/23 08:59 DAILY NIKOLAS Apixaban 5 mg 04/14/22 21:00 Apixaban 5 Mg Tablet PO 04/14/23 20:59 BID NIKOLAS Ascorbic Acid 500 mg 04/14/22 17:00 04/14/22 18:47 Ascorbic Acid 500 Mg Tablet PO 04/14/23 16:59 Not Given BID.WITH.MEALS NIKOLAS Carvedilol 25 mg 04/15/22 08:00 Carvedilol 25 Mg Tablet PO 04/15/23 07:59 BID.WITH.MEALS NIKOLAS Cefadroxil 500 mg 04/15/22 21:00 Cefadroxil 500 Mg Capsule PO 04/22/22 09:01 BID NIKOLAS Diphenhydramine HCl 25 mg 04/14/22 10:40 Diphenhydramine 25 Mg Capsule PO 04/14/23 10:39 HS PRN Insomnia Diphenhydramine HCl 25 mg 04/14/22 10:40 Diphenhydramine 25 Mg Capsule PO 04/14/23 10:39 Q6H PRN Itching Ferrous Sulfate 324 mg 04/14/22 17:00 04/14/22 18:47 Ferrous Sulfate 324 Mg Tablet.Dr PO 04/14/23 16:59 Not Given BID.WITH.MEALS NIKOLAS Hydralazine HCl 100 mg 04/14/22 21:00 Hydralazine 50 Mg Tablet PO 04/14/23 20:59 BID NIKOLAS Lactated Ringer's 1,000 mls @ 20 mls/hr 04/14/22 08:59 04/14/22 17:28 Lactated Ringers IV 04/15/22 08:58 20 mls/hr .Q24H ONE Infusion Lactated Ringer's 1,000 mls @ 75 mls/hr 04/14/22 10:45 04/14/22 18:47 Lactated Ringers IV 04/14/23 10:44 75 mls/hr .[id number] NIKOLAS Administration Cefazolin Sodium 1 gm in 50 mls @ 100 mls/hr 04/15/22 00:30 Ancef IV 04/15/22 08:59 Q8H NIKOLAS Lisinopril 40 mg 04/15/22 09:00 Lisinopril 40 Mg Tablet PO 04/15/23 08:59 QAM NIKOLAS Mineral Oil 1 each 04/17/22 10:40 Mineral Oil ([place]) 1 Each Enema TN ONCE PRN Constipation Morphine Sulfate 15 mg 04/14/22 10:40 Morphine Sulfate 12hr Er 15 Mg Tablet.Er PO Q12H PRN Pain Naloxone HCl 0.4 mg 04/14/22 10:40 Naloxone Hcl 0.4 Mg/Ml Vial IV-PUSH 04/14/23 10:39 Q2M PRN Opioid Reversal Ondansetron HCl 8 mg 04/14/22 10:40 Ondansetron Odt 4 Mg Tab.Rapdis PO 04/14/23 10:39 TID PRN Nausea Oxycodone HCl 5 mg 04/14/22 10:40 Oxycodone Ir 5 Mg Tablet PO Q4HR PRN Pain Scale 6 - 10 Polyethylene Glycol 17 gm 04/14/22 10:40 Polyethylene Glycol 3350 17 Gm Powd.Pack PO 04/21/22 10:39 DAILY PRN Constipation Prochlorperazine Maleate 10 mg 04/14/22 10:40 Prochlorperazine Maleate 5 Mg Tablet PO 04/14/23 10:39 Q6H PRN Nausea Senna/Docusate Sodium 2 tab 04/15/22 09:00 Sennosides/Docusate 8.6-50mg 1 Tab Tablet PO 05/15/22 08:59 DAILY NIKOLAS Sodium Chloride 0 ml 04/14/22 10:00 Sodium Chloride 0.9 % 10 Ml Syringe IV-PUSH 04/14/23 09:59 PRN PRN Flush Sodium Chloride 0 ml 04/14/22 08:59 Sodium Chloride 0.9 % 10 Ml Syringe IV-PUSH 04/14/23 08:58 PRN PRN Flush Sodium Chloride 0 ml 04/14/22 14:00 04/14/22 18:48 Sodium Chloride 0.9 % 10 Ml Syringe IV-PUSH 04/14/23 13:59 10 ml QSHIFT NIKOLAS Administration Spironolactone 25 mg 04/15/22 09:00 Spironolactone 25 Mg Tablet PO 04/15/23 08:59 QAM NIKOLAS Tramadol HCl 50 mg 04/14/22 10:40 Tramadol 50 Mg Tablet PO 10/11/22 10:39 Q4H PRN Pain Scale 1 - 5 Vitamin D 125 mcg 04/15/22 09:00 Cholecalciferol 125 Mcg (5,000 Units) Tablet PO 04/15/23 08:59 DAILY NIKOLAS Exam Physical Exam Vital Signs: Temp Pulse Resp BP Pulse Ox O2 Del Method O2 Flow Rate 98.6 F 64 20 126/74 96 Nasal Cannula 2 04/14/22 17:48 04/14/22 18:48 04/14/22 18:48 04/14/22 18:48 04/14/22 18:48 04/14/22 18:48 04/14/22 18:48 Results Lab Results Labs: Laboratory Results - last 72 hr 04/14/22 09:50: PHA Creatinine Clear 69.02, Sodium 131 L, Potassium 4.3, Chloride 98, Carbon Dioxide 25.3, Anion Gap 12.0, BUN 21, Creatinine 1.21, Est GFR ( Amer) > 60, Est GFR (Non-Af Amer) 58, Glucose 134 H, Calcium 9.2 04/14/22 09:50: Corrected WBC 9.1, Uncorrected WBC Count 9.1, RBC 3.15 L, Hgb 11.3 L, Hct 32.4 L, MCV 102.8 H, MCH 36.0 H, MCHC 35.0, RDW 14.0, Plt Count 132 L, MPV 7.4, Neut % (Auto) 83.0, Lymph % (Auto) 6.6, [place] % (Auto) 7.8, Eos % (Auto) 2.2, Baso % (Auto) 0.4, Neut # (Auto) 7.5, Lymph # (Auto) 0.6 L, [place] # (Auto) 0.7, Eos # (Auto) 0.2, Baso # (Auto) 0.0, Nucleated RBC % (auto) 0.0 A&P - Hospitalist Assessment/Plan (1) Osteoarthritis: (2) Hypertension: (3) TATIANA (obstructive sleep apnea): (4) Hyperlipidemia: (5) Gout: (6) Hyperlipidemia: Plan Osteoarthritis status post right total knee arthroplasty -Management per orthopedic surgery Reviewed patient's chronic conditions and home med rec was reviewed and completed for: Atrial fibrillation anticoagulated on Eliquis: Continue carvedilol, resume Eliquis once okay with surgery service Hypertension: On hydrochlorothiazide. Mild hyponatremia, hold HCTZ. Patient isalso on amlodipine and has history of lower extremity edema. Consider discontinuation of Norvasc and starting CHI or ARB for blood pressure Hyponatremia: Chronic and mild, sodium is 131. Likely combination of hydrochlorothiazide and alcohol use. Monitor BMP. Hold hydrochlorothiazide reeval in a.m. with BMP. Gout: Continue allopurinol Vitamin D deficiency continue supplement Patient's chronic conditions appear stable. Follow-up with BMP in a.m. and monitor blood pressure. Documented By: Tonya Mcgregor DO 04/14/221938 Signed By: <Electronically signed by Tonya Mcgregor DO> 04/14/221950 [facility] Work Phone: [phone]) 495-788409-30-2022 Evaluation note* Encounter Date Diagnosis Assessment Notes Treatment Notes Treatment Clinical Notes Mar, Other Prolonged Servi cordell 1. H and P date: 03/26/2022 2. Diagnosis: Right knee primary osteoarthritis 3. Counseling: Patient provided counseling under his history and physical 4. Coordination of care: The patient was discussed at today's total joints meeting with anesthesia, OR staff, and implant reps in an effort to coordinate the patient's care during the perioperative period. The anesthesiologist was involved in discussions regarding the patient's pain management such as regional blocks, anesthesia plans the day of surgery such as general versus spinal, as well as a final review of lab work to ensure the patient could proceed with surgery safely. The repair department manager was vital for surgery timing and scheduling purposes. The implant rep was also available for necessary discussions regarding preoperative templates that were created on preoperative x-rays to ensure the appropriate implants and sizes of implants would be available the day of surgery. We will plan on a stem. Furthermore, given his lymphedema we will adjust the tibial tracker placement. The patient's discharge plan was also discussed and the final decision was confirmed. 5. Medication Changes: We will hold Toradol and Celebrex given his elevated PST creatinine. 6. Lab Tests: The patient's screening tests including albumin levels, vitamin D levels, hemoglobin, hemoglobin A1c, cotinine serum level, and MRSA nasal cultures were all reviewed to ensure appropriate perioperative care can be performed. This included selection of perioperative antibiotics, surgical dressing, and any contact precautions that may need to be enacted. The patient's presurgical testing lab work was also reviewed. This included a CBC, BMP, UA, fructosamine, and a blood type and screen. This lab work was discussed with anesthesia during today's total joints meeting to ensure the patient could proceed with surgery safely. Patient's sodium was low and his creatinine was elevated. We will plan for repeat BMP the morning of surgery. 7. Review of reports/records: Patient was initially cleared for surgery by his PCP, however, given his low sodium and elevated creatinine, we will get him in for reevaluation by his primary care provider prior to his surgery. He also will need evaluated by cardiology for cardiac clearance prior to surgery. Prolonged services time spent: 37 minutes [facility] Other 08-05-2022 Evaluation note* Encounter Date Diagnosis Assessment Notes Treatment Notes Treatment Clinical Notes Feb, Arthritis of right knee (ICD-10 - M17.11) [facility] Other 07-29-2022 Evaluation note* Encounter Date Diagnosis Assessment Notes Treatment Notes Treatment Clinical Notes Jan, Arthritis of right knee (ICD-10 - M17.11) Jan, Lymphedema (ICD-10 - I89.0) Jan, Other 1. Right TKA - DVT prophylaxis: Home Eliquis - Antibiotics: Ancef and Vanco - NSAID: Celebrex - Implants: Persona with stem - Disposition: Inpatient 2. Preop screening labs will be ordered including: - hemoglobin - serum albumin - 25-OH Vit D - HgbA1c - serum cotinine - MRSA nasal culture 3. Patient will obtain preop clearances including: -PCP -Store Standards Associate 4. Once our office has reviewed the above labs and clearances, we will contact the patient to discuss surgery scheduling. Patient is in agreement with the above plan. 5. The risks involved with surgery and postoperative complications were discussed in relation to the patient's nonmodifiable risk factors including but not limited to the following: History of A. fib on chronic anticoagulation Hypercholesterolemia Hypertension Obstructive sleep apnea All questions were answered after discussing these increased risks. The patient voiced understanding of these increased risks and still wishes to proceed with surgery. 6. The risks involved with surgery and postoperative complications were discussed in relation to the patient's modifiable risk factors including but not limited to the following: BMI 42.4-I had a long discussion with the patient again explaining that his BMI over 40 is significantly increasing his risk of complications postoperatively especially infection, malalignment, and aseptic loosening. Patient voiced that his quality of life has become so poor and his attempts at weight loss have not been successful that he would still want to proceed with surgery even though he knows that he is at increased risk of complications. Chronic lymphedema-I again had a long discussion with the patient explaining that his lymphedema management has been progressing with the pumps and now he will use the compression sleeves. I again recommended that we allow a couple months for him to stick with the sleeves and the pumps to 1 not only lose weight but 2 to also stay more on top of his lymphedema as this would significantly increase his risk of complications if it is not well managed. Patient understands this and still wishes to proceed with surgery. All questions were answered after discussing these increased risks. The patient voiced understanding of these increased risks and still wishes to proceed with surgery. The patient has tried and failed all conservative treatment options to include: oral anti-inflammatories, intra-articular steroid injections, physical therapy, and assistive devices. We will move forward with the definitive treatment option and schedule the patient for the above mentioned procedure after we have reviewed screening labs and clearances. Patient understands abnormal screening labs or absent clearances could delay their surgery. [facility] Other 05-27-2022 Evaluation note* Encounter Date Diagnosis Assessment Notes Treatment Notes Treatment Clinical Notes November, Arthritis of right knee (ICD-10 - M17.11) November, Lymphedema (ICD-10 - I89.0) November, Other 1. We had a costa g discussion with the patient today concerning their right knee osteoarthritis. The radiographs do show osteoarthritis of the knee. At this time the patient would like to avoid surgical intervention. We did discuss the risk and benefits of surgical versus nonoperative management. The patient would like to proceed with nonoperative management. We discussed that our options include injections, physical therapy, and the consistent use of anti-inflammatories. All 3 of these options, including their risks and benefits, were discussed at length with the patient. 2. Tylenol: Discussed taking Tylenol (acetaminophen). Recommended adjusting their dosing to 1000mg by mouth up to 3 times a day. 3. NSAIDs: Recommended continued [id number] oral anti-inflammatories. 4. Physical therapy: Discussed formal physical therapy and home regimen. Patient preferred no formal PT at this time. 5. Injections: Discussed injections as a treatment option. After consent was obtained, the right knee was injected with 3cc Kenalog and 7cc bupivicaine using sterile technique. Patient tolerated the injection well. 6. In regards to the bilateral lower extremity swelling regarding that the patient back in with his primary care provider, Dr. Dodd, to discuss any further treatment options. We will also refer him to the lymphedema clinic. While I think that he is a great radiographic and clinical candidate for a right total knee arthroplasty, I think that he needs to get some of the swelling off of his legs and work with the lymphedema clinic prior to us proceeding with surgical intervention of his right knee osteoarthritis. At this point I think his risk for complications especially wound complications including infection is extremely high as result of the lymphedema. 7. Follow-up in 2 months [facility] Other 01-07-2022 NotePROCEDURE: XR KNEE RT 4V or > HISTORY: Knee pain ; chronic right knee pain COMPARISON: None. FINDINGS: BONES:Marked degenerative changes of the medial compartment with joint space narrowing, subchondral sclerosis and cysts, and prominent periarticular degenerative osteophytes. Mild-moderate narrowing of the anterior and lateral compartments. SOFT TISSUES:No visible soft tissue swelling. EFFUSION:None visible. OTHER: Negative. IMPRESSION: 1. Marked degenerative changes involving the medial compartment. 2. No acute bone abnormality. Electronically authenticated by: YURI PATEL Date: 2021-07-12 11:53[facility] HealthDis[facility] Author Delmer Whyte [facility] May 27, 2023 1:32pm Note Date/Time May 27, 2023 8:50am [facility] [address] [place] [address] Discharge Summary Signed Patient: Al Kuo MR# : [id number] : 1945 Acct:[id number] Age/Sex: 77 / M Adm Date: 3 Loc: Room: 0E7369-[address]: Delmer Whyte MD Copies to: MD Delmer Waldron MD~ Providers Date of Discharge: 05/27/23 Discharging Provider: Delmer Whyte Primary Care Provider: Real Dodd Consults: 05/18/23 15:53 Consult to Adult Hospitalist Routine Consult to Dietitian Routine Consult to Occupational Therapy Routine Consult to Physical Therapy Routine Speech Admit Screen Routine Discharge Diagnosis (1) Status post left knee replacement: (2) Hypertension: (3) Anemia: Final Diagnosis Final Discharge Diagnosis: as above Summary Hospital Course Hospital course: Mr. Kuo is a 77 year old male with a past medical history of A-fib anticoagulated with Eliquis, hypertension, sleep apnea, pulmonary hypertension, and arthritis admitted to acute rehab with functional impairments secondary to elective knee replacement. Patient failed conservative treatment and was recommended surgical intervention. Dr. Govea performed robotic assisted left total knee arthroplasty with negative pressure wound therapy application on 05/12/2023. Patient tolerated theprocedure well and there was no immediate postop complication. Of note, patientunderwent a right total knee arthroplasty approximately 1 year ago and subsequently admitted to acute rehab for therapy. His hospital course was unremarkable. Patient did quite well in therapy and was recommended home with home health services. However, patient and family did not feel that he would be safe at home and requested acute rehab placement. Rehab Course: Stay was uncomplicated. He did have a venous duplex prior to discharge which was negative for DVT. Does take Eliquis premorbidly. With regards to his chronic lower extremity swelling, he was advised to wrap and elevate. Otherwisemaintained on home medications. Pleated postoperative antibiotics short course of prednisone. Pain reasonably controlled. Moving bowels. Close follow-up with orthopedics at discharge. Condition Condition at Discharge: Stable Status at Discharge Functional status at discharge: uses cane/walker Overall status at discharge: patient is progressing back to baseline Time Spent with Patient Time spent providing/coordinating discharge services (# min): 50 Specific discharge activities: Total time spent discharging this patient > 30 minutes Greater than 30 minutes spent preparing the patient for discharge including the following: Discussion of the hospital stay with patient and/or family Instructions for continuing care to all relevant caregivers Reviewing discharge plan with medical staff, social work, care management, and nursing staff Supervision of discharge paperwork, medication reconciliation, prescriptions, and outpatient appointments Prescribed necessary DME at discharge when indicated Exam Physical Exam Vital Signs: Temp Pulse Resp BP Pulse Ox O2 Del Method 97.4 F L 77 20 129/80 95 Room Air 05/27/23 05:00 05/27/23 05:00 05/27/23 05:00 05/27/23 05:00 05/27/23 05:00 05/27/23 05:00 Narrative: Gen: Awake, oriented, cooperative. HEENT: Atraumatic, PERRL, EOMI Resp: No respiratory distress Cardio: Extremities well perfused MSK: Moves all extremities spontaneously Neuro: CN grossly intact Skin: No swelling, erythema, ecchymosis appreciated Psych: Mood and affect normal Discharge Plan Discharge Plan Patient Disposition: Home Activity: Ambulate as Tolerated and May Shower Diet: Regular Additional Instructions: -Code Status: Full Code -Diet: Regular - B/L knee chi wraps to assist with swelling -Activity: WBAT, ambulate as toleraed -Wound: Left Knee- maintain Zipline, cover with dry sterile dressing if needed. Do not apply ointments, creams, or lotions on your wound. Do not scrub the incision or submerge in a bath, pool/eugene or pond. May shower. -Left oconnor sutures, cover with dry sterile dressing PRN. You will have Outpatient Physical Therapy at [facility] ( ). The order has already been sent to them and they will contact youdirectly to schedule your evaluation date/time. If you do not hear from them by Thursday afternoon, please contact them directly at the phone number listed above. You have been given prescriptions for new and/or needed medications. These prescriptions are for a one-time fill only, with no re-fills. For further re- fills going forward, you will need to address with your PCP at your follow up appointment, or by calling your PCP?s office prior to the prescriptions running out. NOTE: please call within 24 hours if you need to cancel or change any follow up appointments. Arrive early to all follow up appointments, bring current medication list, photo ID and any insurance card(s) to all future follow ups (listed below). Please remember to wear a mask to all appointments. If you develop any symptoms (cough, fever/chills, shortness of breath, sore throat, nausea/vomiting, etc.) please contact your provider's office to inform them prior to your appointment. Instructions: Atrial Fibrillation (DC), Total Knee Replacement (DC) Prescriptions: Continued ascorbic acid (vitamin C) [Vitamin C] 500 mg Tablet 500 mg PO BID.WITH.MEALS 0RF allopurinol 300 mg Tablet 300 mg PO QAM 30 Days Qty: 30 0RF Eliquis 5 mg Tablet 5 mg PO BID Qty: 60 0RF carvedilol 25 mg Tablet 25 mg PO BID 30 Days Qty: 60 0RF Rx Instructions: hold for SBP <110 or HR < 55 cyanocobalamin (vitamin B-12) 1,000 mcg Tablet 1,000 mcg PO QAM 30 Days Qty: 30 0RF folic acid 1 mg Tablet 1 mg PO DAILY Qty: 30 0RF cholecalciferol (vitamin D3) 125 mcg (5,000 unit) Capsule 125 mcg PO DAILY 30 Days Qty: 30 0RF polyethylene glycol 3350 [HealthyLax] 17 gram Powder In Packet 17 g PO DAILY PRN (Reason: Constipation) 30 Days Qty: 30 0RF sennosides-docusate sodium 8.6-50 mg Tablet 2 tab PO DAILY 30 Days Qty: 60 0RF spironolactone 25 mg Tablet 25 mg PO QAM 30 Days Qty: 30 0RF Rx Instructions: hold for SBP <110 Changed acetaminophen 500 mg Tablet 500 mg PO Q8H PRN (Reason: Pain) Qty: 0 0RF oxycodone 5 mg tablet 5 mg PO Q6H PRN (Reason: Pain Scale 8 - 10) 7 Days Qty: 30 0RF ferrous sulfate 324 mg (65 mg iron) Tablet,Delayed Release (Dr/Ec) 324 mg PO DAILY Qty: 0 0RF Discontinued prednisone 10 mg Tablet 10 mg PO DAILY 0RF cefadroxil 500 mg Capsule 500 mg PO BID 0RF mineral oil [Fleet Mineral Oil] Enema 1 ea TN ONCE PRN (Reason: Constipation) 0RF bisacodyl 5 mg Tablet,Delayed Release (Dr/Ec) 10 mg PO DAILY PRN (Reason: Constipation) 0RF ondansetron 4 mg Tablet,Disintegrating 8 mg PO TID PRN (Reason: Nausea) 0RF pantoprazole 40 mg Tablet,Delayed Release (Dr/Ec) 20 mg PO DAILY 0RF tramadol 50 mg tablet 50 mg PO Q4H PRN (Reason: Pain Scale 5 - 7) Follow Up: Real Dodd MD [Primary Care Provider] - 06/05/23 9:30 am (-PCP) Delmer Whyte MD [Active Staff] - (follow up with rehab physician as/if needed) Andrea Govea II, MD [Active Staff] - 05/27/23 10:45 am Documented By: Delmer Whyte MD 05/27/23 0850 Signed By: <Electronically signed by Delmer Whyte MD> 05/27/23 1332 [facility] Work Phone: Evaluation + Plan note Future Appointments Appointment Date:07/07/2023 01:40:00 PM Scheduled Provider:John BARTLETT MD Location:[facility] Appointment Type: Procedure 30 General Surgery [place] Evaluation + Plan note Future Appointments Appointment Date:07/22/2023 01:40:00 PM Scheduled Provider:John BARTLETT MD Location:[facility] Appointment Type:GS Established 15 General Surgery [place] evaluation noteNo assessment information available [facility] Work Phone: evaluation note* Diagnosis Onset Date Resolution Status Gout acute Hyperlipidemia acute Hypertension acute TATIANA (obstructive sleep apnea) acute Osteoarthritis acute Status post right knee replacement acute [facility] Work Phone: evaluation note* Diagnosis Onset Date Resolution Status B12 deficiency acute Folate deficiency acute Gout acute Hyperlipidemia acute Hypertension acute TATIANA (obstructive sleep apnea) acute Osteoarthritis acute Status post right knee replacement acute Anemia acute Atrial fibrillation acute B12 deficiency acute Chronic anticoagulation acut e Edema of both legs acute Folate deficiency acute Gout acute Hyperlipidemia acute Hypertension acute Hyponatremia acute Hypotension acute Morbid obesity with BMI of 40.0-44.9, adult acute TATIANA (obstructive sleep apnea) acute Osteoarthritis acute Status post right knee replacement acute [facility] Work Phone: evaluation noteNo InformationN[facility]ind[facility] [employer] Other evaluation note* Diagnosis Onset Date Resolution Status Atrial fibrillation acute Chronic anticoagulation acut e Gout acute Hypertension acute Lymphedema acute Morbid obesity with BMI of 40.0-44.9, adult acute TATIANA (obstructive sleep apnea) acute Osteoarthritis acute Status post left knee replacement acute Anemia acute Atrial fibrillation acute Hypertension acute Impaired mobility and activities of daily living acute Lymphedema acute Morbid obesity with BMI of 40.0-44.9, adult acute Status post left knee replacement acute [facility] Work Phone: [place] general Narrative - Reported* Type Description Date Medical History high blood pressure Medical History high cholesterol Medical History afib Surgical History colon X 2 Surgical History lumbar surgery [facility] [place] Other History of Present illness Narrative* The patient states he has been generally doing well since the last visit. Comorbid Illnesses: hypertension. * Symptoms: denies chest pain at rest, denies exertional chest pain, denies dyspnea, denies fatigue, stable exercise intolerance, denies palpitations, denies edema, denies orthopnea, denies dizziness and denies orthostatic dizziness. * Disease Monitoring: -[facility] 250 DO Work Phone: History of Present illness Narrative* Patient is here for persistent atrial fibrillation with prior cardioversion, left-ventricular hypertrophy, hypertension and obesity. Since last time I saw him he denies any change in cardiac status or symptoms. He denies complaint of chest pain, palpitation, lightheadedness, dizziness or syncope. On examination he was noted to be back in atrial fibrillation. This appears to be completely asymptomatic. * ASSESSMENT: * 1. Recurrent atrial fibrillation. Completely asymptomatic * 2. Abnormal echocardiogram demonstrating moderate range left ventricular hypertrophy. I suspect this is likely due to long-standing hypertension and the patient's body size. * 3. Hypertension, controlled * 4. Morbid obesity. With no recent weight changes * 5. Moderate secondary pulmonary hypertension. * 6 .sleep apnea. Patient admits he is not compliant with CPAP * 7. Pulmonary hypertension due to sleep apnea * RECOMMENDATION: * 1. I had lengthy discussion with him regarding treatment option including rhythm control strategy versus heart rate control strategy. We discussed antiarrhythmic or ablation. Following lengthy discussion patient did not make any decision and elected to think about it and he will let me know. I did a dvise him concerning that he is unaware of his arrhythmia and he is completely asymptomatic that heart rate control strategy and long-term anticoagulation may be an acceptable approach * 2. I advised him to lose weight and exercise. * 3. Continue to encourage him to be compliant with his CPAP * 3. We will see him back in the office in 3 to 4 months and will discuss further therapy but for thetime being we will continue with heart rate control and anticoagulation strategy [facility] 250 DO Work Phone: History of Present illness Narrative* Patient is here for follow-up to management for persistent/recurrent atrial fibrillation, hypertension, obesity, pulmonary hypertension. Since last time I saw him he denies any complaint of chest pain, palpitation, lightheadedness, dizziness or syncope. He does describe lower extremity edema. Thereis no weight gain. He does have history of sleep apnea but admits that he is noncompliant with his C PAP. He remained in atrial fibrillation. He elected for heart rate control on long-term anticoagulation. * ASSESSMENT: * 1. Recurrent atrial fibrillation. Completely asymptomatic heart rate appears to be controlled on long-term anticoagulation * 2. Abnormal echocardiogram demonstrating moderate range left ventricular hypertrophy ue to long-standing hypertension and the patient's body size. * 3. Hypertension, controlled * 4. Morbid obesity. With no recent weight changes * 5. Moderate secondary pulmonary hypertension untreated sleep apnea hypertension * 6 .sleep apnea. Patient admits he is not compliant with CPAP * 7. Pulmonary hypertension due to sleep apnea * 8. Edema with right heart failure due to pulmonary hypertension and sleep apnea * RECOMMENDATION: * 1. The patient elected for heart rate control and long-term anticoagulation. Risk, benefit alternative anticoagulation reviewed patient should and agreed * 2. I advised him to lose weight and exercise. * 3. Continue to encourage him to be compliant with his CPAP instead of Spire * 3. I told him his edema is multifactorial including treatment with amlodipine, pulmonary hypertension and right heart failure. Unfortunately he is on multiple antihypertensive medication and that is no good alternative for amlodipine. I recommended the addition of Aldactone 25 mg daily. Patient was advised to repeat his lab work as ordered. In addition and emphasized to him to restrict his salt intake [facility] 250 DO Work Phone: History of Present illness Narrative* Patient is here for follow-up and continue management for recurrent atrial fibrillation, hypertension, obesity and lower extremity edema. Since last time I saw him he had to complain when his shortness of breath and when his lower extremity edema. He reports minor improvement with addition of Aldactone. He denies lightheadedness, dizziness or syncope. He admits to very limited exercise tolerance and dyspnea on exertion. His amlodipine was discontinued recently. * ASSESSMENT: * 1. Persistent and recurrent completely asymptomatic heart rate appears to be controlled on long-term anticoagulation. During last office visit he elected for heart rate control strategy * 2. Abnormal echocardiogram demonstrating moderate range left ventricular hypertrophy ue to long-standing hypertension and the patient's body size. * 3. Hypertension, controlled * 4. Morbid obesity. With no recent weight changes * 5. Moderate secondary pulmonary hypertension untreated sleep apnea hypertension * 6 .sleep apnea. Patient admits he is not compliant with CPAP * 7. Pulmonary hypertension due to sleep apnea * 8. Edema with right heart failure due to pulmonary hypertension and sleep apnea * 9. Shortness of breath with no recent ischemic evaluation * RECOMMENDATION: * 1. The patient elected for heart rate control and long-term anticoagulation. Risk, benefit alternative anticoagulation reviewed patient should and agreed * 2. I advised him to lose weight and exercise. * 3. Continue to encourage him to be compliant with his CPAP consider surgical orders Spire device treatment * 3. We will proceed with Lexiscan myocardial perfusion study in view of complaint of shortness of breath and inability to exercise and his risk factors * 4. Continue to restrict salt intake * 5. Patient report he had lower extremity Doppler done in the past at [place] and it was negative for DVT and the patient is on chronic anticoagulation * 6. Patient brought copy of his lab work which demonstrated a little bit elevated C-reactive proteinwhich I indicated to him that it can indicate increased risk of heart disease and discussed with him at length primary prevention-7. Follow-up in 6 months [facility] 250 DO Work Phone: History of Present illness Narrative* Patient is here for follow-up continue management for persistent becoming permanent atrial fibrillation, hypertension, obesity, pulmonary hypertension and sleep apnea. Since last time I saw him he reports he is feeling well. He denies complaint chest pain, lightheadedness, dizziness or syncope. He remains reasonably active. His recent stress test showed no evidence of myocardial ischemia. * In atrial fibrillation. * ASSESSMENT: * 1. Persistent becoming chronic atrial fibrillation. Completely asymptomatic heart rate appears to be controlled on long-term anticoagulation. During last office visit he elected for heart rate control strategy * 2. Abnormal echocardiogram demonstrating moderate range left ventricular hypertrophy ue to long-standing hypertension and the patient's body size. * 3. Hypertension, controlled * 4. Morbid obesity. With minor weight gain * 5. Moderate secondary pulmonary hypertension untreated sleep apnea hypertension * 6 .sleep apnea. Patient admits he is not compliant with CPAP * 7. Pulmonary hypertension due to sleep apnea * 8. 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 * 9. Shortness of breath recent ischemic evaluation was negative * RECOMMENDATION: * 1. The patient elected for heart rate control and long-term anticoagulation. Risk, benefit alternative anticoagulation reviewed patient should and agreed * 2. I advised him to lose weight and exercise. * 3. Continue to encourage him to be compliant with his CPAP consider surgical orders Spire device treatment * 3. I reviewed the result of his stress test with him * 4. Continue to restrict salt intake * 5. Patient report he had lower extremity Doppler done in the past at [place] and it was negative for DVT and the patient is on chronic anticoagulation * 6. Follow-up in 7 to 8 months with an EKG * 6. Patient brought copy of his lab work which demonstrated a little bit elevated C-reactive proteinwhich I indicated to him that it can indicate increased risk of heart disease and discussed with him at length primary prevention-7. Follow-up in 6 months -[facility] 320 DO Work Phone: Hospital course Narrative No data available for this section General Surgery [place] Hospital Discharge instructions Additional Instructions Rehab to manage - Full Code - Ortho assessment per routine - Keep wound vac in place for 14days then remove and maintain dressing - Joint Re[facility] Work Phone: Hospital Discharge instructionsAmbulatory Orders* Initiate Home Health Time Frame: 04/28/22, Location: Determined By Patient Additional Instructions -Code Status: Full Code. -Activity: Weight bearing as tolerated. Ok to shower. No tub baths/pools/soaking incision until cleared by surgeon. -Wound Care: Right knee incision-if drainage present, cover with a dry sterile dressing and change daily and as needed. Leave zipline intact. May cover incision/zipline with dry sterile dressing to prevent it from snagging on clothing. -Apply CHI wraps from toes to above knees or thigh high KARL hose. -Diet: Regular.[facility] [employer] Work Phone: Hospital Discharge instructions Additional Instructions -Code Status: Full Code -Diet: Regular - B/L knee chi wraps to assist with swelling -Activity: WBAT, ambulate as toleraed -Wound: Left Knee- maintain Zipline, cover with dry sterile dressing if needed. Do not apply ointments, creams, or lotions on your wound. Do not scrub the incision or submerge in a bath, pool/eugene or pond. May shower. -Left oconnor sutures, cover with dry sterile dressing PRN. You will have Outpatient Physical Therapy at [facility] ( ). The order has already been sent to them and they will contact you directly to schedule your evaluation date/time. If you do not hear from them by Thursday afternoon, please contact them directly at the phone number listed above. You have been given prescriptions for new and/or needed medications. These prescriptions are for a one-time fill only, with no re-fills. For further re-fills going forward, you will need to address with your PCP at your follow up appointment, or by calling your PCP s office prior to the prescriptions running out. NOTE: please call within 24 hours if you need to cancel or change any follow up appointments. Arrive early to all follow up appointments, bring current medication list, photo ID and any insurance card(s) to all future follow ups (listed below). Please remember to wear a mask to all appointments. If you develop any symptoms (cough, fever/chills, shortness of breath, sore throat, nausea/vomiting, etc.) please contact your provider's office to inform them prior to your appointment.[facility] [employer] Work Phone: Hospital Discharge instructions No data available for this section General Surgery [place] Progress note No data available for this section General Surgery [place] Chief Complaint * I am doing well * AL KUO is being seen for a 6 week follow-up of hypertension. * Patient presents to [facility] for cardiovascular evaluation. * Patient is ambulatory with steady gait. * Last evaluated in clinic by Dr. Velasquez Mar 2021. Norvasc added, compliant with addition; no side effects. * Compared to last cardiovascular evaluation, patient reports no change. * Patient denies any hospitalizations or significant changes to interval medical history since last office follow-up. * Patient attends to own ADLs and functional ADLs. 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 * Patient denies change to exercise tolerance or functional capacity since last evaluation. * Current cardiovascular concerns: * None * Lifeline screening: * no significant finding * Primary prevention: * -Optimally treated hypertension * -April 2021 HDL 54, LDL 89 currently not on statin * -No diabetes * -No tobacco * Daily activity 4 METS without concerning symptoms. AL KUO is being seen for a 6 month follow-up of.AL KUO is being seen for a 3 month follow-up of. Family History No Family History Records FoundUnknown Family Member Name Dates Details No pertinent family history: Mother, Father, Sibling(V49.89, Z78.9) Status:Active Unknown Family Member Name Dates Details No pertinent family history: Mother, Father, Sibling(V49.89, Z78.9) Status:Active Unknown Family Member Name Dates Details No pertinent family history: Mother, Father, Sibling(V49.89, Z78.9) Status:Active Unknown Family Member Name Dates Details No pertinent family history: Mother, Father, Sibling(V49.89, Z78.9) Status:Active Relationship Condition Age at Onset Recorded Date/T marek father Myocardial infarction Unknown Not Specified Dementia Unknown sister Malignant neoplasm of colon Unknown Unknown Family Member Name Dates Details No pertinent family history: Mother, Father, Sibling(V49.89, Z78.9) Status:Active Unknown Family Member Name Dates Details No pertinent family history: Mother, Father, Sibling(V49.89, Z78.9) Status:Active Unknown Family Member Name Dates Details No pertinent family history: Mother, Father, Sibling(V49.89, Z78.9) Status:Active Unknown Family Member Name Dates Details No pertinent family history: Mother, Father, Sibling(V49.89, Z78.9) Status:Active Unknown Family Member Name Dates Details No pertinent family history: Mother, Father, Sibling(V49.89, Z78.9) Status:Active Unknown Family Member Name Dates Details No pertinent family history: Mother, Father, Sibling(V49.89, Z78.9) Status:Active Unknown Family Member Name Dates Details No pertinent family history: Mother, Father, Sibling(V49.89, Z78.9) Status:Active Relationship Condition Age at Onset Recorded Date/T marek father Myocardial infarction Unknown Not Specified Dementia Unknown sister Malignant neoplasm of colon Unknown brother Cerebrovascular accident (CVA) Unknown Chief Complaint and Reason for Visit Chief Complaint bilateral lower lymp hedema M17.11 Chief Complaint bilateral lower lymp hedema M17.11 pre op RTK Knee Pain Knee Pain Chief Complaint bilateral lower lymp hedema M17.11 pre op RTK Knee Pain Knee Pain Knee Pain Reason for Visit Gout Hyperlipidemia Hypertension TATIANA (obstructive sleep apnea) Osteoarthritis Status post right knee replacement Chief Complaint bilateral lower lymp hedema M17.11 pre op RTK Knee Pain Knee Pain Knee Pain Right TKA Reason for Visit B12 deficiency Folate deficiency Gout Hyperlipidemia Hypertension TATIANA (obstructive sleep apnea) Osteoarthritis Status post right knee replacement Anemia Atrial fibrillation B12 deficiency Chronic anticoagulation Edema of both legs Folate deficiency Gout Hyperlipidemia Hypertension Hyponatremia Hypotension Morbid obesity with BMI of 40.0-44.9, adult TATIANA (obstructive sleep apnea) Osteoarthritis Status post right knee replacement Chief Complaint Z96.651 M25.562 Z79.899 M81.0 Chief Complaint Z96.651 M25.562 Z79.899 M81.0 Knee Pain Chief Complaint Z96.651 M25.562 Z79.899 M81.0 Knee Pain Knee Pain left knee osteoarthritis s/p TKA Reason for Visit Atrial fibrillation Chronic anticoagulation Gout Hypertension Lymphedema Morbid obesity with BMI of 40.0-44.9, adult TATIANA (obstructive sleep apnea) Osteoarthritis Status post left knee replacement Anemia Atrial fibrillation Hypertension Impaired mobility and activities of daily living Lymphedema Morbid obesity with BMI of 40.0-44.9, adult Status post left knee replacement Chief Complaint Knee Pain Knee Pain left knee osteoarthritis s/p TKA Postop L TKA Reason for Visit Atrial fibrillation Chronic anticoagulation Gout Hypertension Lymphedema Morbid obesity with BMI of 40.0-44.9, adult TATIANA (obstructive sleep apnea) Osteoarthritis Status post left knee replacement Anemia Atrial fibrillation Hypertension Impaired mobility and activities of daily living Lymphedema Morbid obesity with BMI of 40.0-44.9, adult Status post left knee replacement Advance Directives No Advanced Directives Records Found Advance Directive Response Recorded Date/ Time Advance Directives No October 22 3:56pm Advance Directive Response Recorded Date/ Time Advance Directives No October 22 2:56pm Summary Purpose Additional Source Comments REASON FOR VISIT (unrecogniz ed section and content) MELISSA RAMSEY DISCUSS RT KA2 MONTHSNo InformationNo InformationNo InformationPOST OPH&P LTKA2 WK POST OP Care Teams (unrecognized sec tion and content) Team Status: Active Member Role Status Valentín Dodd MD Primary Care Provider Active Team Status: Inactive Member Role Status Valentín Dodd MD Primary Care Provider Active Andrea Govea II, MD Attending Provider Active Team Status: Inactive Member Role Status Valentín Dodd MD Primary Care Provider, Attending Pr ovidmamta Active Team Status: Active Member Role Status Valentín Dodd MD Primary Care Provider Active Andrea Govea II, MD Attending Provider Active Team Status: Inactive Member Role Status Valentín Dodd MD Primary Care Provider Active Andrea Govea II, MD Attending Provider Active Basilia Adams , CARTER Other Provider Active Annette Young , CARTER Other Provider Active Lala Elizondo , RN Other Provider Active Rebeka Argueta , RN Other Provider Active Yeny Alvarez , CARTER Other Provider Active Orly Rm , CARTER Other Provider Active Derrick Matos MD Other Provider Active Kimmy Wong , OUTREACH WORKER Other Provider Active Bandar Caro , DO Other Provider Active Butch Ballard MD Other Provider Active Cruz Phipps , Other Provider Active Taiwo Guy MD Other Provider Active Katy Irvin MD Other Provider Active Bernadette Archuleta , ANP-BC Other Provider Active Carol Carias MD Other Provider Active Roel Macedo MD Other Provider Active Dotty Benson MD Other Provider Active Phyllis Medellin MD Other Provider Active John Hall DO Other Provider Active Rodger Loyd MD Other Provider Active Familia Dos Santos MD Other Provider Active Zach Leavitt MD Other Provider Active Priscilla Bennett , PAPER CUP HANDLE MACHINE OPERATOR-C Other Provider Active Shar Kahn MD Other Provider Active Evin Silver MD Other Provider Active Lilian Shrestha MD Other Provider Active Tarun Bateman MD Other Provider Active Tonya Mcgregor , DO Other Provider Active Jennifer Carrillo MD Other Provider Active Paco R Julio , DO Other Provider Active Saúl Funk , DO Other Provider Active Bindu Zabala APRN Other Provider Active Jimenez Bran , DO Other Provider Active Watson Ryan MD Other Provider Active Norma Talamantes , CARTER Other Provider Active Team Status: Inactive Member Role Status Dates Real Dodd MD Primary Care Provider Active Delmer Whyte MD Admit Provider, Attending Provider A ctive Basilia Adams , CARTER Other Provider Active Annette Young , CARTER Other Provider Active Lala Elizondo , CARTER Other Provider Active Rebeka Argueta , CARTER Other Provider Active Yeny Alvarez , CARTER Other Provider Active Orly Rm , CARTER Other Provider Active Rain Ramos MD Other Provider Active Derrick Matos MD Other Provider Active Kimmy Wong OUTREACH WORKER Other Provider Active Bandar Caro , DO Other Provider Active Butch Ballard MD Other Provider Active Cruz Phipps , DO Other Provider Active Taiwo Guy MD Other Provider Active Katy Irvin MD Other Provider Active Bernadette Archuleta , ANP-BC Other Provider Active Carol Carias MD Other Provider Active Roel Macedo MD Other Provider Active Dotty Benson MD Other Provider Active Phyllis Medellin MD Other Provider Active John Hall , DO Other Provider Active Rodger Loyd MD Other Provider Active Familia Dos Santos MD Other Provider Active Zach Leavitt MD Other Provider Active Priscilla Bennett , PAPER CUP HANDLE MACHINE OPERATOR-C Other Provider Active Shar Kahn MD Other Provider Active Evin Silver MD Other Provider Active Lilian Shrestha MD Other Provider Active Tarun Bateman MD Other Provider Active Tonya Mcgregor , DO Other Provider Active Jennifer Carrillo MD Other Provider Active Paco R Julio , DO Other Provider Active Saúl Funk , DO Other Provider Active Bindu Zabala APRN Other Provider Active Jimenez Bran , DO Other Provider Active Watson Ryan MD Other Provider Active Norma Talamantes , RN Other Provider Active Team Status: Inactive Member Role Status Dates Real Dodd MD Primary Care Provider Active Andrea Govea II, MD Attending Provider Active Basilia Adams , RN Other Provider Active Annette Young , CARTER Other Provider Active Lala Elizondo , RN Other Provider Active Rebeka Argueta , CARTER Other Provider Active Yeny Alvarez , CARTER Other Provider Active Orly Rm RN Other Provider Active Rain Ramos MD Other Provider Active Kimmy Wong , OUTREACH WORKER Other Provider Active Bandar aCro , DO Other Provider Active Butch Ballard MD Other Provider Active Cruz Phipps , DO Other Provider Active Taiwo Guy MD Other Provider Active Katy Irvin MD Other Provider Active Bernadette Carr , OUTREACH WORKER Other Provider Active Carol Carias MD Other Provider Active Roel Macedo MD Other Provider Active Dotty Benson MD Other Provider Active Phyllis Medellin MD Other Provider Active John Hall , DO Other Provider Active Faimlia Dos Santos MD Other Provider Active Zach Leavitt MD Other Provider Active Priscilla Bennett , PAPER CUP HANDLE MACHINE OPERATOR-C Other Provider Active Shar Kahn MD Other Provider Active Evin Silver MD Other Provider Active Sabas Kc MD Other Provider Active Tarun Bateman MD Other Provider Active Tonya Mcgregor , DO Other Provider Active Paco Kim , DO Other Provider Active Saúl Funk , DO Other Provider Active Bindu Zabala OUTREACH WORKER Other Provider Active Jimenez Bran , DO Other Provider Active Watson Ryan MD Other Provider Active Gerda Collins OUTREACH WORKER Other Provider Active Marilee Platt , OUTREACH WORKER Other Provider Active Bianca Banuelos MD Other Provider Active Colby Acosta MD Other Provider Active Teo Ennis , DO Other Provider Active Amy Narayanan OUTREACH WORKER Other Provider Active Sheila Bañuelos , DO Other Provider Active Norma Talamantes , CARTER Other Provider Active Delmer Whyte MD Other Provider Active Team Status: Inactive Member Role Status Dates Real Dodd MD Primary Care Provider Active Delmer Whyte MD Admit Provider, Attending Provider A ctive Basilia Adams , RN Other Provider Active Annette Young , RN Other Provider Active Lala Elizondo , RN Other Provider Active Rebeka Argueta , CARTER Other Provider Active Yeny Alvarez , CARTER Other Provider Active Orly Rm , CARTER Other Provider Active Rain Ramos MD Other Provider Active Kimmy Wong , OUTREACH WORKER Other Provider Active Bandar Caro , DO Other Provider Active Butch Ballard MD Other Provider Active rCuz Phipps , DO Other Provider Active Taiwo Guy MD Other Provider Active Katy Irvin MD Other Provider Active Bernadette Carr , OUTREACH WORKER Other Provider Active Caorl Carias MD Other Provider Active Roel Macedo MD Other Provider Active Dotty Benson MD Other Provider Active Phyllis Medellin MD Other Provider Active John Hall , DO Other Provider Active Familia Dos Santos MD Other Provider Active Zach Leavitt MD Other Provider Active Priscilla Bennett , PAPER CUP HANDLE MACHINE OPERATOR-C Other Provider Active Shar Kahn MD Other Provider Active Evin Silver MD Other Provider Active Sabas Kc MD Other Provider Active Tarun Bateman MD Other Provider Active Tonya Mcgregor , DO Other Provider Active Paco Kim , DO Other Provider Active Saúl Funk , DO Other Provider Active Bindu Zabala , OUTREACH WORKER Other Provider Active Jimenez Bran , DO Other Provider Active Watson Ryan MD Other Provider Active Gerda Collins , OUTREACH WORKER Other Provider Active Marilee Platt , OUTREACH WORKER Other Provider Active Bainca Banuelos MD Other Provider Active Colby Acosta MD Other Provider Active Amy Narayanan OUTREACH WORKER Other Provider Active Sheila Bañuelos , DO Other Provider Active Norma Talamantes , CARTER Other Provider Active Goals (unrecognized section and content) Goals may be documented in a n alternate section (unrecognized sect ion and content) No Status Records FoundNo Status Records FoundNo Status Records FoundNo Status Records FoundNo Status Records FoundNo Status Records FoundNo Status Records FoundNo Status Records Found INFORMATION SOURCE (unrecogn ized section and content) DATE CREATED AUTHOR 04/11/2022 [facility] DATE CREATED AUTHOR AUTHOR'S ORGANIZ ATION 01/23/2023 [facility] DATE CREATED AUTHOR AUTHOR'S ORGANIZ ATION 02/04/2023 [facility] DATE CREATED AUTHOR AUTHOR'S ORGANIZ ATION 02/04/2023 [employer] DATE CREATED AUTHOR AUTHOR'S ORGANIZ ATION 06/19/2023 [facility] DATE CREATED AUTHOR AUTHOR'S ORGANIZ ATION 07/09/2023 [facility] DATE CREATED AUTHOR AUTHOR'S ORGANIZ ATION 07/15/2023 [facility] DATE CREATED AUTHOR AUTHOR'S ORGANIZ ATION 08/20/2023 [facility] FOR RECORDS PERTAINING TO PATIENTS WHO ARE OR HAVE BEEN ENROLLED IN A CHEMICAL DEPENDENCY/SUBSTANCEABUSE PROGRAM, SOME INFORMATION MAY BE OMITTED. This clinical summary was aggregated from multiple sources. Caution should be exercised in using it in the provision of clinical care. This summary normalizes information from multiple sources, and as a consequence, information in this document may materially change the coding, format and clinical context of patient data. In addition, data may be omitted in some cases. CLINICAL DECISIONS SHOULD BE BASED ON THE PRIMARY CLINICAL RECORDS. [facility] [employer] provides no warranty or guarantee of the accuracy or completeness of information in this document.
== END 2023-07-14 14:31 | disposition home or self-care (01) ==
LOC: LAB 14:30
PROVIDERS: PCP Family Medicine; Visit Provider Surgery
DX: R22.1 Localized swelling, mass and lump, neck (principal); R22.32 Localized swelling, mass and lump, left upper limb
CPT/HCPCS: 88304; 88305

== ENCOUNTER 2023-09-02 13:21 | Outpatient (OUT) | payer OTHER, SELFPAY ==
[2023-09-02 14:34] LABS: Anion Gap 11.9; BUN Creatinine Ratio 21.8; Calcium 9.1 mg/dL (8.5-10.1); Chloride 99 mmol/L (98-107); Estimated GFR (African America >60 (>=60); Estimated GFR (Non-African Ame 52 (>=60); Glucose 152 mg/dL (74-106); Potassium 3.9 mmol/L (3.5-5.1); Sodium 138 mmol/L (136-145)
== END 2023-09-02 13:22 | disposition home or self-care (01) ==
LOC: LAB 13:24
PROVIDERS: PCP Family Medicine; Visit Provider Internal Medicine Cardiovascular Disease
DX: R60.0 Localized edema (principal)
CPT/HCPCS: 36415; 80048

== ENCOUNTER 2024-07-20 13:47 | Outpatient (OUT) | payer OTHER, SELFPAY ==
--- OUTSIDE RECORDS SUMMARY | 2024-07-20 14:19 | XMS_ITS | CCD ---
Author Organization [facility] ion Partnership [facility] Care Team Providers Care [employer] Name Role Phone Real Dodd Unavailable Unavailable Unavailable Andrea Govea II Unavailable MD Real Dodd Primary Care Provider [phone] MD Real Dodd Attending Provider [phone] MD Andrea Govea II Attending Provider [phone] DR REAL DODD Consulting Unavailable JU, DR NOBLE Attending Unavailable KHAIY, DR NOBLE Admitting Unavailable JU, DR NOBLE Primary Care Unavailable DR REAL DODD Consulting Unavailable JU, DR NOBLE Attending Unavailable KHAIY, DR NOBLE Admitting Unavailable JU, DR NOBLE Primary Care Unavailable JU, DR NOBLE Attending Unavailable JU, DR NOBLE Consulting Unavailable JU, DR NOBLE Admitting Unavailable JU, DR NOBLE Primary Care Unavailable RAHEEM GRAHAM Consulting Unavailable DR REAL DODD Consulting Unavailable JU, DR NOBLE Attending Unavailable JU, DR NOBLE Referring Unavailable JU, DR NOBLE Admitting Unavailable JU, DR NOBLE Primary Care Unavailable ZIDR YURI HOGAN Consulting Unavailable DR REAL DODD Consulting Unavailable DR REAL DODD Attending Unavailable JU, DR NOBLE Admitting Unavailable JU, DR NOBLE Primary Care Unavailable CARTER Adams Other Provider Unavailable CARTER Young Other Provider Unavailable CARTER Elizondo Other Provider Unavailable CARTER Argueta Other Provider Unavailable CARTER Alvarez Other Provider Unavailable CARTER Rm Other Provider Unavailable MD Derrick Matos Other Provider QUYNH Wong Other Provider DO Bandar Caro Other Provider MD Butch Ballard Other Provider DO Cruz Phipps Other Provider MD Taiwo Guy Other Provider MD Katy Irvin Other Provider Kathe, ANP-BC Bernadette Other Provider MD Carol Carias Other Provider MD Roel Macedo Other Provider MD Dotty Benson Other Provider MD Phyllis Medellin Other Provider DO John Hall Other Provider [phone] MD Rodger Loyd Other Provider MD Familia Dos Santos Other Provider MD Zach Leavitt Other Provider Donald, DISTRIBUTION WAREHOUSE MANAGER-C Priscilla Riley Other Provider MD Shar Kahn Other Provider MD Evin Silver Other Provider MD Lilian Shrestha Other Provider MD Tarun Bateman Other Provider DO Tonya Mcgregor Other Provider MD Jennifer Barry Other Provider DO Paco Kim Other Provider DO Saúl Funk Other Provider QUYNH Zabala Other Provider DO Jimenez Bran Other Provider [phone] MD Watson Ryna Other Provider [phone] CARTER Talamantes Other Provider Unavailable MD Delmer [...] Provider MD Andrea Govea II Attending Provider CARTER Adams Other Provider Unavailable CARTER Young Other Provider Unavailable CARTER Elizondo Other Provider Unavailable CARTER Argueta Other Provider Unavailable CARTER Alvarez Other Provider Unavailable CARTER Rm Other Provider Unavailable MD Rain Ramos Other Provider Marvin, DIALYSIS REGISTERED NURSE Kimmy Soliz Other Provider DO Bandar Caro Other Provider MD Butch Ballard Other Provider DO Cruz Phipps Other Provider MD Taiwo Guy Other Provider MD Katy Irvin Other Provider QUYNH aCrr Other Provider MD Carol Carias Other Provider [...] Provider QUYNH Collins Other Provider QUYNH Platt Marilee C Other Provider MD Bianca Banuelos Other Provider MD Colby Acosta Other Provider DO Teo Ennis Other Provider QUYNH Narayanan Other Provider DO Sheila Bañuelos Other Provider CARTER Talamantes Other Provider Unavailable MD Delmer Whyte Other Provider MD Delmer Whyte Admit Provider MD Delmer Whyte Attending Provider JANES LEON Attending Unavailable Real Dodd Primary Care Physician MD Real Dodd Primary Care Provider MD Andrea Govea II Attending Provider [phone] Jeferson OROZCO, Andrea Soliz Attending Unavailabl e [place] II, Andrea Soliz Admitting Unavailabl e HoReal lizarraga Primary Care Unavailable [place] II, Andrea Soliz Admitting Unavailabl e [place] II, Andrea Soliz Attending Unavailabl e Real Dodd Primary Care Unavailable Jeferson II, Andrea Soliz Admitting Unavailabl e Real Dodd Primary Care Unavailable Jeferson OROZCO, Andrea Soliz Attending Unavailabl e Jeferson II, Andrea Soliz Admitting Unavailabl e [place] II, Andrea Soliz Attending Unavailabl e Real Dodd Primary Care Unavailable Jeferson II, Andrea Soliz Admitting Unavailabl e [place] II, Andrea Soliz Attending Unavailabl e Real Dodd Primary Care Unavailable Basilia Adams Consulting Unavailable Annette Young Consulting Unavailable Lala Elizondo Consulting Unavailable Rebeka Argueta Consulting Unavailable Yeny Alvarez Consulting Unavailable Orly Rm Consulting Unavailable Rain Ramos Consulting Unavailable Kimmy Wong Consulting Unavailable Bandar Caro Consulting Unavailable Butch Ballard Consulting Unavailable Cruz Phipps Consulting Unavailabl e Taiwo Guy Consulting Unavailable Katy Irvin Consulting Unavailable Bernadette Carr Consulting Unavailabl e Carol Carias Consulting Unavailable Roel Macedo Consulting Unavailable Dotty Benson Consulting Unavailable Phyllis Medellin Consulting Unavailable John Hall Consulting Unavailable Familia Dos Santos Consulting Unavailable Zach Leavitt Consulting Unavailable Priscilla Bennett Consulting Unavailable Shar Kahn Consulting Unavailab Evin Cabezas Consulting Unavailable Sabas Kc Consulting Unavailable Tarun Bateman Consulting Unavailable Tonya Mcgregor Consulting Unavailable Paco Kim Consulting Unavailable MiniSaúl wang Consulting Unavailable Obcamelia, Bindu Consulting Unavailable Jimenez Bran Consulting Unavailable Pandaomar, Obbeatris M Consulting Unavailable Gerda Collins Consulting Unavailable Marilee Platt Consulting Unavailable Lakisha, Bianca Consulting Unavailable Colby Acosta Consulting Unavailable Teo Ennis Consulting Unavailable Amy Narayanan Consulting Unavailable Sarmad, Sheila Consulting Unavailable Norma Talamantes Consulting Unavailable Delmer [...] Unavailable Priscilla Bennett Consulting Unavailable DoShar fam Consulting UnavailEvin Whitlock Consulting Unavailable Sabas Kc Consulting Unavailable Tarun Bateman Consulting Unavailable Tonya Mcgregor Consulting Unavailable Paco Kim Consulting Unavailable Saúl Funk Consulting Unavailable ObArsh denisea Consulting Unavailable Jimenez Bran Consulting Unavailable PandaomarWatson Consulting Unavailable Gerda Collins Consulting Unavailable Marilee Platt Consulting Unavailable Nasima Banuelosa Consulting Unavailable Colby Acosta Consulting Unavailable Amy Narayanan Consulting Unavailable Sarmad, Sheila Consulting Unavailable Norma Talamantes Consulting Unavailable John BARTLETT Attending Unavailable John BARTLETT Attending Unavailable John BARTLETT Attending Unavailable NILL, John R Attending Unavailable Real Dodd MD Primary Care Provider [phone] JAMMIE VELASQUEZ Attending Unavailable REAL DODD Primary Care Unavailable JAMMIE VELASQUEZ Attending Unavailable JAMMIE VELASQUEZ Referring Unavailable REAL DODD Primary Care Unavailable Allergies Allergy Classification Reported Allergen(s) Allergy Type Date of Onset Reaction(s) Facility (6 sources) Triamcinolone; Translations: [triamcinolone topical] Drug Allergy 02-25-2023 Anaphylaxis (disorder), Anaphylaxis General [facility] [place] Medications Current Medications Medication Drug Class(es) Dates [...] Start: 03-26-2022 take 2 tablets by mo [facility] every eight hours for pain Acetaminophen 500 MG 2 tablets for pain Orally every 8 hrs for 30 days Med to Bed Upon Discharge DOS: 05/12/2023 Apr, Active allopurinol 300 mg oral tablet (20 sources) Xanthine Oxidase Inhibitor Start: 09-06-2019 End: 04-28-2022 take 1 tablet by mouth once daily allopurinol 300 mg Tab 300 mg = 1 tab(s), Oral, Daily, Refills(s) 0 Start Date: 06/17/23 Status: Ordered apixaban 5 mg oral tablet (20 sources) Factor Xa Inhibitor Start: 01-15-2024 End: 01-14-2025 take 1 tablet by mouth twice daily apixaban (Eliquis) 5 mg tablet Indications: Anticoagulated Take 1 tablet (5 mg) by mouth 2 times a day. 180 tablet 3 01/15/2024 01/14/2025 Active Start: 06-17-2023 take 1 tablet by shayy twice daily Eliquis 5 mg oral tablet [...] 15, 2022 1:02pm take 1 capsule by mo [facility] once daily Vitamin C 500 MG Oral Capsule 1 daily Quantity: 0 Refills: 0 Ordered: 05-Aug-2022 DO Active carvedilol 25 mg oral tablet (20 sources) alpha-Adrenergic Eddi, beta-Adrenergic Eddi Start: 08-31-2019 End: 04-28-2022 take 1 tablet by mouth twice daily carvedilol 25 mg Tab 25 mg = 1 tab(s), Oral, BID, Refills(s) 0 Start Date: 06/17/23 Status: Ordered celecoxib 200 mg oral capsule (5 sources) [...] Sodium Discontinued 100 MG PO Twice daily 30 April 27, 2022 11:00pm April 28, 2023 [...] 1:01pm take 1 tablet by shayy th three times daily at mealtime ferrous sulfate 325 (65 Fe) MG EC tablet Take 65 mg by mouth 3 times a day with meals. Do not crush, chew, or split. Active take 1 tablet by shayy th once daily Ferrous Sulfate 325 (65 Fe) MG TAKE 1 TABLET BY MOUTH EVERY DAY for 30 Active folic acid 1 mg oral tablet (20 sources) Start: 09-18-2022 take 1 tablet by mouth once daily folic acid 1 mg Tab 1 mg = 1 tab(s), Oral, Daily, Refills(s) 0 Start Date: 06/17/23 Status: Ordered Start: 04-15-2022 End: 04-28-2022 take 1 tablet by mouth once daily folic acid 1 mg Tab 1 mg = 1 tab(s), Oral, Daily, Refills(s) 0 Start Date: 06/17/23 Status: Ordered furosemide 40 mg oral tablet (10 sources) Loop Diuretic Start: 08-18-2023 End: 08-17-2024 take 1 tablet by mouth once daily furosemide (Lasix) 40 mg tablet Indications: Localized edema Take 1 tablet (40 mg) by mouth once daily. 90 tablet 3 08/18/2023 08/17/2024 Active Start: 06-17-2023 take 1 tablet by shayy th once daily Lasix 40 mg Tab 40 mg = 1 tab(s), Oral, Daily, Refills(s) 0 Start Date: 06/17/23 Status: Ordered Start: 04-28-2022 End: 04-28-2023 take 40 mg by mouth once daily Furosemide Discontinued 40 MG PO Daily at 0800 30 30 April 27, 2022 11:00pm April 28, 2023 [...] 27, 2022 11:00pm April 28, 2023 8:12am spironolactone 25 mg oral tablet (20 sources) Aldosterone Antagonist Start: 01-23-2022 End: 05-27-2023 take 1 tablet by mouth once daily spironolactone (Aldactone) 25 mg tablet Indications: Edema, unspecified TAKE 1 TABLET BY MOUTH EVERY DAY 90 tablet 3 05/27/2023 Active vitamin b12 1 mg oral tablet (17 [...] Start: 04-29-2023 take 1 capsule by mo uth every twelve hours Cefadroxil 500 MG 1 tablet Orally every 12 hrs for 7 days Med to Bed Upon Discharge DOS: 05/12/2023 Apr, Active Start: 04-15-2022 End: 04-28-2022 take 500 mg by mouth twice daily Cefadroxil Discontinued 500 MG PO Twice daily April 14, 2022 11:00pm April 28, 2022 8:16am Start: 03-26-2022 take 1 capsule by mo uth every twelve hours Cefadroxil 500 MG 1 [...] Active docusate sodium 50 mg / sennosides, [facility] 8.6 mg oral tablet (20 sources) Start: [...] (Fleet Mineral Oil) Enema Discontinued 1 EACH SC Once May 18, 2023 12:00am May 27, [...] 18, 2023 12:00am May 27, 2023 8:41am 12 hr timolol 5 mg/ml ophthalmic solution [...] atrial fibrillation; Translations: [Atrial fibrillation] Onset: 06-15-2021 Resolved: 08-18-2023 04-14-2022 Chronic Cardiac dysrhythmias (15 sources) Sinus bradycardia; Translations: [Other specified cardiac dysrhythmias] Onset: 04-24-2023 Resolved: 04-27-2024 04-27-2024 Episodic Congestive heart failure; nonhypertensive (1 source) [...] following joint replacement surgery Chronic Other aftercare (13 sources) Drug therapy finding; Translations: [Long-term (current) use of anticoagulants] Onset: 08-18-2023 04-27-2024 Episodic Other aftercare (6 sources) Long-term current use of anticoagulant; Translations: [intermediate project manager (current) use of anticoagulants] 04-16-2022 Episodic Other aftercare (6 sources) intermediate project manager (current) use of anticoagulants; Translations: [Long-term (current) use of anticoagulants] Onset: 05-12-2023 04-28-2022 Episodic Other and ill-defined heart disease (13 sources) Left ventricular hypertrophy; Translations: [Cardiomegaly] Onset: 04-24-2023 04-27-2024 Chronic Other and ill-defined heart disease (3 [...] 40+ - severely obese; Translations: [Morbid obesity] Onset: 04-27-2024 04-16-2022 Chronic Other nutritional; endocrine; and metabolic disorders (6 sources) Morbid (severe) obesity due to excess calories; Translations: [Morbid obesity] Onset: 05-12-2023 04-28-2022 Chronic Other nutritional; endocrine; and metabolic disorders (3 sources) Morbid obesity 06-23-2023 Chronic Other nutritional; endocrine; and metabolic disorders (3 sources) Body mass index (BMI) 40.0-44.9, adult; Translations: [...] vascular disease 06-17-2023 Chronic Pulmonary heart disease (17 sources) Secondary pulmonary hypertension; Translations: [Other chronic pulmonary heart diseases] Onset: 04-24-2023 04-27-2024 Chronic Residual codes; unclassified (12 sources) Sleep apnea; Translations: [Unspecified sleep apnea] Onset: 04-24-2023 04-24-2023 Chronic Residual codes; unclassified (11 sources) Obstructive sleep apnea syndrome; Translations: [Obstructive sleep apnea (adult) (pediatric)] 04-14-2022 Chronic Residual codes; unclassified (8 sources) Obstructive sleep apnea (adult) (pediatric); Translations: [Obstructive sleep apnea (adult)(pediatric)] Onset: 04-24-2023 04-15-2022 Chronic Residual codes; unclassified (6 sources) Bilateral lower limb edema; Translations: [Localized edema] 04-17-2022 Episodic Residual codes; unclassified (1 source) Other specified health status; Translations: [Other specified health status] Onset: 05-18-2023 Episodic Screening and history of mental health and substance abuse codes (15 sources) Ex-smoker; Translations: [Personal history of tobacco use] Onset: 04-27-2024 04-27-2024 Episodic Comment on above: quit 2000, 1/2 PPD; Unclassified (3 sources) CONTACT W/AND (SUSP) [...] right artificial knee joint] Onset: 04-01-2023 Unclassified (4 sources) Permanent atrial fibrillation; Translations: [Permanent atrial fibrillation (Multi)] Onset: 08-18-2023 Past or Other Problems Problem [...] 07-25-2021 Episodic Other aftercare (2 sources) Other senior care (current) drug therapy; Translations: [Other senior care (current) drug therapy] Onset: 04-01-2023 Episodic Other [...] knee] Onset: 04-01-2023 Episodic Residual codes; unclassified (16 sources) Edema; Translations: [Edema] Onset: 04-24-2023 04-14-2022 Episodic Residual codes; unclassified (1 source) Edema, unspecified; Translations: [EDEMA UNSPECIFIED] Onset: 06-15-2021 Episodic Residual codes; unclassified (3 sources) Localized edema; Translations: [Edema] Onset: 04-24-2023 04-28-2022 Episodic Sprains and strains (1 source) Sprain of anterior cruciate ligament of right knee, initial encounter; Translations: [SPRAIN ACL RIGHT KNEE INITIAL ENC] Onset: 07-25-2021 Episodic Unclassified (1 source) CONTACT W/AND (SUSP) EXPOS COVID-19; Translations: [CONTACT W/AND (SUSP) EXPOS COVID-19] Onset: 07-01-2021 Unclassified (1 source) Onset: 08-18-2023 08-18-2023 Results Test Name Value Interpretation Reference Range Facility Ambulatory Visit Summaryon 0 07-14-2023 Ambulatory Visit Summary AL KUO :1945 Visit Date:07/14/2023 Ambulatory Visit Instructions Your Diagnosis Inflamed skin tag Epidermal cyst Your Care Team Attending Physician - John [...] BARTLETT MD Where: General Surgery Tri/Eliz Huitron [facility] General Surgery Office/Clini c Noteon 07-14-2023 General [...] virus vaccine, inactivated 04/09/2023 Recorded SARS-CoV-2 (COVID-19) [id number] 04/10/2022 Recorded SARSCoV2 mRNA(divnurrlf-xqwp-gkcbte) vac 01/10/2022 Recorded SARS-CoV-2 (COVID-19) mRNA BNT-162b2 vax 03/30/2021 Recorded 2023-06-17: TPV75 SARS-CoV-2 (COVID-19) mRNA BNT-162b2 vax 08/24/2020 Recorded 2023-06-17: TPV75 SARS-CoV-2 (COVID-19) mRNA BNT-162b2 vax 08/17/2020 Recorded SARS-CoV-2 (COVID-19) mRNA BNT-162b2 vax 08/03/2020 Recorded 2023-06-17: TPV75 SARS-CoV-2 (COVID-19) mRNA BNT-162b2 vax 07/27/2020 Recorded Normal Barton [facility] Comment on above: Result Comment: Elec tronically Signed By: TRI VICKERS, John Echevarria\Date and Time Signed: 07/14/23 14:19 EST Insurance Correspondenceon 0 07-09-2023 Insurance Correspondence [id number] Elana Barton [facility] General Surgery Office/Clini c Noteon 07-07-2023 General [...] virus vaccine, inactivated 04/09/2023 Recorded SARS-CoV-2 (COVID-19) [id number].[id number] 04/10/2022 Recorded SARSCoV2 mRNA(ojilkbyae-ddlj-koyiql) vac 01/10/2022 Recorded SARS-CoV-2 (COVID-19) mRNA BNT-162b2 vax 03/30/2021 Recorded 2023-06-17: TPV75 SARS-CoV-2 (COVID-19) mRNA BNT-162b2 vax 08/24/2020 Recorded 2023-06-17: TPV75 SARS-CoV-2 (COVID-19) mRNA BNT-162b2 vax 08/17/2020 Recorded SARS-CoV-2 (COVID-19) mRNA BNT-162b2 vax 08/03/2020 Recorded 2023-06-17: TPV75 SARS-CoV-2 (COVID-19) mRNA BNT-162b2 vax 07/27/2020 Recorded Normal [facility] Comment on above: Result Comment: Elec tronically Signed By: TRI VICKERS, John Mendoza\.br\Date and Time Signed: 07/07/23 15:22 EST Facesheeton 06-24-2023 Facesheet [id number] Normal [facility] Ambulatory Visit Summaryon 1 08-24-2022 Ambulatory Visit Summary AL KUO :1945 Visit Date:06/23/2023 Ambulatory Visit Instructions Your Care Team Attending Physician - TRI [...] Follow-Up Appointments Thursday 1:40 PM EST With: TRI VICKERS, John Mendoza Where: General Surgery Tri/Eliz Keller Normal [facility] Physician Referralon 023 Physician Referral [id number]#[id number] Normal [facility] Physician Referralon 023 Physician Referral [id number] Normal [facility] US venous duplex LE BIon US venous duplex LE BI [facility] [place] [address] Ultrasound Report Signed Patient: Al Kuo MR#: [id number] : 1945 Acct:[id number] Age/Sex: 77 / M ADM Date: 05/18/23 Loc: Room: 6H2314-2 Type: ADM IN Attending Dr: Delmer Whyte [...] Daniel Hirsch MD05/26/2023 8:58 AM [facility] Tech: Gardenia Lopez Transcribed By: GIULIA 05/26/23 0858 Dictated By: Daniel Hirsch MD 05/26/23 0857 Signed By: 05/26/23857 Normal [facility] Alanine aminotransferase [En zymatic activity/volume] in Serum or PlasmaOrdered By: Omar Jackman on 05-19-2023 ALT [Catalytic activity/Vol] 8 U/L 7-52 [facility] Albumin [Mass/volume] in Ser um or Plasma by Bromocresol green (BCG) dye binding methoOrdered By: Omar Jackman on 05-19-2023 Albumin BCG dye [Mass/Vol] 3.1 g/dL 3.5-5.7 [facility] Alkaline phosphatase [Enzyma tic activity/volume] in Serum or PlasmaOrdered By: Omar Jackman on 05-19-2023 ALP [Catalytic activity/Vol] 42 U/L 34-104 [facility] Aspartate aminotransferase [ Enzymatic activity/volume] in Serum or PlasmaOrdered By: Omar Jackman on 05-19-2023 AST [Catalytic activity/Vol] 8 U/L 13-39 [facility] Basophils Auto (Bld) [#/Vol] Ordered By: Omar Jackman on 05-19-2023 Basophils (Bld) [#/Vol] 0.0 10*3/uL 0.0-0.2 [facility] Basophils/100 WBC Auto (Bld) Ordered By: Omar Jackman on 05-19-2023 Basophils/100 WBC (Bld) 0.3 % . [facility] Bilirubin.total [Mass/volume ] in Serum or PlasmaOrdered By: Omar Jackman on 05-19-2023 Bilirubin [Mass/Vol] 1.0 mg/dL 0.3-1.0 [facility] Calcium [Mass/volume] in Ser um or PlasmaOrdered By: Omar Jackman on 05-19-2023 Calcium [Mass/Vol] 8.6 mg/dL 8.6-10.3 [facility] Carbon dioxide, total [Moles /volume] in Serum or PlasmaOrdered By: Omar Jackman on 05-19-2023 CO2 [Moles/Vol] 30.0 mmol/L 21.0-31.0 [facility] Chloride [Moles/volume] in S gary or PlasmaOrdered By: Omar Jackman on 05-19-2023 Chloride [Moles/Vol] 101 mmol/L 98-107 [facility] Complete Blood Count Auto Di ffon 05-19-2023 Basophils (Bld) [#/Vol] 0.0 10*3/uL Normal 0.0-0.2 [facility] Comment on above: Result Comment: PERF ORMED BY: [place] [address] OILER ISMAEL HERNANDEZ M.D. Performed By: #### C UMRSA, A1C WTH eA, HGB, [id number], ALB #### [address] #### NICOTINE #### [facility] , Basophils/100 WBC (Bld) 0.3 % Normal . [facility] Comment on above: Performed By: #### C UMRSA, A1C WTH eA, HGB, [id number], ALB #### [facility] [address] [place] [address] [place] #### NICOTINE #### [facility] , Eosinophils (Bld) [#/Vol] 0.2 10*3/uL Normal 0.0-0.45 [facility] Comment on above: Performed By: #### C UMRSA, A1C WTH eA, HGB, [id number], ALB #### [place] [address] [place] #### NICOTINE #### [facility] , Eosinophils/100 WBC (Bld) 2.2 % Normal . [facility] Comment on above: Performed By: #### C UMRSA, A1C WTH eA, HGB, [id number], ALB #### [facility] [address] [place] [address] [place] #### NICOTINE #### [facility] , Erythrocyte distribution width (RBC) [Ratio] 14.3 % Normal 12.0-14.8 [facility] Comment on above: Performed By: #### C UMRSA, A1C WTH eA, HGB, [id number], ALB #### [place] [address] [place] #### NICOTINE #### [facility] , Hematocrit (Bld) [Volume fraction] 27.5 % Low 38.8-50.0 [facility] Comment on above: Performed By: #### C UMRSA, A1C WTH eA, HGB, [id number], ALB #### [place] [address] [place] #### NICOTINE #### [facility] , Hemoglobin (Bld) [Mass/Vol] 9.7 g/dL Low 13.0-17.0 [facility] Comment on above: Performed By: #### C UMRSA, A1C WTH eA, HGB, [id number], ALB #### [place] [address] [place] #### NICOTINE #### [facility] , Lymphocytes (Bld) [#/Vol] 1.2 10*3/uL Normal 1.00-4.8 [facility] Comment on above: Performed By: #### C UMRSA, A1C WTH eA, HGB, [id number], ALB #### [facility] [address] [place] [address] [place] #### NICOTINE #### [facility] , Lymphocytes/100 WBC (Bld) 11.5 % Normal . [facility] Comment on above: Performed By: #### C UMRSA, A1C WTH eA, HGB, [id number], ALB #### [facility] [address] [place] [address] [place] #### NICOTINE #### [facility] , MCH (RBC) [Entitic mass] 36.2 pg High 27.5-35.2 [facility] Comment on above: Performed By: #### C UMRSA, A1C WTH eA, HGB, [id number], ALB #### [address] #### NICOTINE #### [facility] , MCV (RBC) [Entitic vol] 103.1 fL High 83.5-101 [facility] Comment on above: Performed By: #### C UMRSA, A1C WTH eA, HGB, [id number], ALB #### [facility] [address] [place] [address] [place] #### NICOTINE #### [facility] , Mean Corpuscular HGB Conc 35.1 g/dL Normal 32.5-35.6 [facility] Comment on above: Performed By: #### C UMRSA, A1C WTH eA, HGB, [id number], ALB #### [place] [address] [place] #### NICOTINE #### [facility] , Monocytes (Bld) [#/Vol] 1.0 10*3/uL High 0.0-0.8 [facility] Comment on above: Performed By: #### C UMRSA, A1C WTH eA, HGB, [id number], ALB #### [place] [address] [place] #### NICOTINE #### [facility] , Monocytes/100 WBC (Bld) 9.4 % Normal . [facility] Comment on above: Performed By: #### C UMRSA, A1C WTH eA, HGB, [id number], ALB #### [facility] [address] [place] [address] [place] #### NICOTINE #### [facility] , Neutrophils (Bld) [#/Vol] 8.1 10*3/uL High 1.8-7.7 [facility] Comment on above: Performed By: #### C UMRSA, A1C WTH eA, HGB, [id number], ALB #### [facility] [address] [place] [address] [place] #### NICOTINE #### [facility] , Neutrophils/100 WBC (Bld) 76.6 % Normal . [facility] Comment on above: Performed By: #### C UMRSA, A1C WTH eA, HGB, [id number], ALB #### [facility] [address] [place] [address] [place] #### NICOTINE #### [facility] , NRBC% 0.1 /100{WBC} Normal 0-0.5 [facility] Comment on above: Performed By: #### C UMRSA, A1C WTH eA, HGB, [id number], ALB #### [facility] [address] [place] [address] [place] #### NICOTINE #### [facility] , Platelet mean volume (Bld) [Entitic vol] 8.3 fL Normal 6.6-10.1 [facility] Comment on above: Performed By: #### C UMRSA, A1C WTH eA, HGB, [id number], ALB #### [facility] [address] [place] [address] [place] #### NICOTINE #### [facility] , Platelets (Bld) [#/Vol] 149 10*3/uL Low 150-450 [facility] Comment on above: Performed By: #### C UMRSA, A1C WTH eA, HGB, [id number], ALB #### [facility] [address] [place] [address] [place] #### NICOTINE #### [facility] , RBC (Bld) [#/Vol] 2.67 10*6/uL Low 3.90-5.60 [facility] Comment on above: Performed By: #### C UMRSA, A1C WTH eA, HGB, [id number], ALB #### [facility] [address] [place] [address] [place] #### NICOTINE #### [facility] , WBC (Bld) [#/Vol] 10.5 10*3/uL Normal 4.1-10.5 [facility] Comment on above: Performed By: #### C UMRSA, A1C WTH eA, HGB, [id number], ALB #### [facility] [address] [place] [address] [place] #### NICOTINE #### [facility] , Comprehensive Metabolic Pane leland 05-19-2023 Albumin [Mass/Vol] 3.1 g/dL Low 3.5-5.7 [facility] Comment on above: Performed By: #### C UMRSA, A1C WTH eA, HGB, [id number], ALB #### [facility] [address] [place] [address] [place] #### NICOTINE #### [facility] , Albumin/Globulin [Mass ratio] 1.3 {ratio} Normal [facility] Comment on above: Performed By: #### C UMRSA, A1C WTH eA, HGB, [id number], ALB #### [facility] [address] [place] [address] [place] #### NICOTINE #### [facility] , ALP [Catalytic activity/Vol] 42 U/L Normal 34-104 [facility] Comment on above: Performed By: #### C UMRSA, A1C WTH eA, HGB, [id number], ALB #### [facility] [address] [place] [address] [place] #### NICOTINE #### [facility] , ALT [Catalytic activity/Vol] 8 U/L Normal 7-52 [facility] Comment on above: Performed By: #### C UMRSA, A1C WTH eA, HGB, [id number], ALB #### [facility] [address] [place] [address] [place] #### NICOTINE #### [facility] , Anion gap [Moles/Vol] 8.3 mmol/L Normal 6.0-15.0 [facility] Comment on above: Performed By: #### C UMRSA, A1C WTH eA, HGB, [id number], ALB #### [facility] [address] [place] [address] [place] #### NICOTINE #### [facility] , AST [Catalytic activity/Vol] 8 U/L Low 13-39 [facility] Comment on above: Performed By: #### C UMRSA, A1C WTH eA, HGB, [id number], ALB #### [place] [address] [place] #### NICOTINE #### [facility] , Bilirubin [Mass/Vol] 1.0 mg/dL Normal 0.3-1.0 [facility] Comment on above: Performed By: #### C UMRSA, A1C WTH eA, HGB, [id number], ALB #### [facility] [address] [place] [address] [place] #### NICOTINE #### [facility] , Calcium [Mass/Vol] 8.6 mg/dL Normal 8.6-10.3 [facility] Comment on above: Performed By: #### C UMRSA, A1C WTH eA, HGB, [id number], ALB #### [facility] [address] [place] [address] [place] #### NICOTINE #### [facility] , Chloride [Moles/Vol] 101 mmol/L Normal 98-107 [facility] Comment on above: Performed By: #### C UMRSA, A1C WTH eA, HGB, [id number], ALB #### [facility] [address] [place] [address] [place] #### NICOTINE #### [facility] , CO2 [Moles/Vol] 30.0 mmol/L Normal 21.0-31.0 [facility] Comment on above: Performed By: #### C UMRSA, A1C WTH eA, HGB, [id number], ALB #### [address] #### NICOTINE #### [facility] , Creatinine [Mass/Vol] 0.94 mg/dL Normal 0.70-1.30 [facility] Comment on above: Performed By: #### C UMRSA, A1C WTH eA, HGB, [id number], ALB #### [facility] [address] [place] [address] [place] #### NICOTINE #### [facility] , Creatinine Clr Calc Pharmacy 90.14 [facility] Comment on above: Performed By: #### C UMRSA, A1C WTH eA, HGB, [id number], ALB #### [facility] [address] [place] [address] [place] #### NICOTINE #### [facility] , GFR/1.73 sq M.predicted MDRD (S/P/Bld) [Vol rate/Area] mL/min/{1.73_m2} [facility] Comment on above: Performed By: #### C UMRSA, A1C WTH eA, HGB, [id number], ALB #### [facility] [address] [place] [address] [place] #### NICOTINE #### [facility] , Globulin (S) [Mass/Vol] 2.4 g/dL Normal [facility] Comment on above: Performed By: #### C UMRSA, A1C WTH eA, HGB, [id number], ALB #### [place] [address] [place] #### NICOTINE #### [facility] , Glucose [Mass/Vol] 113 mg/dL High 70-100 [facility] Comment on above: Result Comment: [facility] Glucose Reference Range is dependent on time and content of last meal. Glucose of more than 200 mg/dL in a nonstressed, ambulatory subject supports the diagnosis of Diabetes Mellitus. ADA recommended reference range Performed By: #### C UMRSA, A1C WTH eA, HGB, [id number], ALB #### [place] [address] [place] #### NICOTINE #### [facility] , Potassium [Moles/Vol] 4.3 mmol/L Normal 3.5-5.1 [facility] Comment on above: Performed By: #### C UMRSA, A1C WTH eA, HGB, [id number], ALB #### [place] [address] [place] #### NICOTINE #### [facility] , Protein [Mass/Vol] 5.5 g/dL Low 6.4-8.9 [facility] Comment on above: Performed By: #### C UMRSA, A1C WTH eA, HGB, [id number], ALB #### [facility] [address] [place] [address] [place] #### NICOTINE #### [facility] , Sodium [Moles/Vol] 135 mmol/L Low 136-145 [facility] Comment on above: Performed By: #### C UMRSA, A1C WTH eA, HGB, [id number], ALB #### [address] [place] [address] [place] #### NICOTINE #### [facility] , Urea nitrogen [Mass/Vol] 25 mg/dL Normal 7-25 [facility] Comment on above: Performed By: #### C UMRSA, A1C WTH eA, HGB, [id number], ALB #### [facility] [address] [place] [address] [place] #### NICOTINE #### [facility] , Creatinine [Mass/volume] in Serum or PlasmaOrdered By: Omar Jackman on 05-19-2023 Creatinine [Mass/Vol] 0.94 mg/dL 0.70-1.30 [facility] Eosinophils Auto (Bld) [#/Vo l]Ordered By: Omar Jackman on 05-19-2023 Eosinophils (Bld) [#/Vol] 0.2 10*3/uL 0.0-0.45 [facility] Eosinophils/100 WBC Auto (Bl d)Ordered By: Omar Jackman on 05-19-2023 Eosinophils/100 WBC (Bld) 2.2 % . [facility] Erythrocyte distribution wid th Auto (RBC) [Ratio]Ordered By: Omar Jackman on 05-19-2023 Erythrocyte distribution width (RBC) [Ratio] 14.3 % 12.0-14.8 [facility] Globulin Calc (S) [Mass/Vol] Ordered By: Omar Jackman on 05-19-2023 Globulin (S) [Mass/Vol] 2.4 g/dL [facility] Glucose [Mass/volume] in Ser um or PlasmaOrdered By: Omar Jackman on 05-19-2023 Glucose [Mass/Vol] 113 mg/dL 70-100 [facility] Comment on above: ADA recommended refe rence rangeRandom Glucose Reference Range is dependent on time and content of last meal. Glucose of more than 200 mg/dL in a nonstressed, ambulatory subject supports the diagnosis of Diabetes Mellitus. Hematocrit Auto (Bld) [Volum e fraction]Ordered By: Omar Jackman on 05-19-2023 Hematocrit (Bld) [Volume fraction] 27.5 % 38.8-50.0 [facility] Hemoglobin [Mass/volume] in BloodOrdered By: Omar Jackman on 05-19-2023 Hemoglobin (Bld) [Mass/Vol] 9.7 g/dL 13.0-17.0 [facility] Leukocytes [#/volume] correc karl for nucleated erythrocytes in Blood by Automated counOrdered By: Omar Jackman on 05-19-2023 WBC corrected for nucl RBC Auto (Bld) [#/Vol] 10.5 10*3/uL 4.1-10.5 [facility] Lymphocytes Auto (Bld) [#/Vo l]Ordered By: Omar Jackman on 05-19-2023 Lymphocytes (Bld) [#/Vol] 1.2 10*3/uL 1.00-4.8 [facility] Lymphocytes/100 WBC Auto (Bl d)Ordered By: Omar Jackman on 05-19-2023 Lymphocytes/100 WBC (Bld) 11.5 % . [facility] MCH Auto (RBC) [Entitic mass ]Ordered By: Omar Jackman on 05-19-2023 MCH (RBC) [Entitic mass] 36.2 pg 27.5-35.2 [facility] MCHC Auto (RBC) [Mass/Vol]Or dered By: Omar Jackman on 05-19-2023 MCHC (RBC) [Mass/Vol] 35.1 g/dL 32.5-35.6 [facility] MCV Auto (RBC) [Entitic vol] Ordered By: Omar Jackman on 05-19-2023 MCV (RBC) [Entitic vol] 103.1 fL 83.5-101 [facility] Monocytes Auto (Bld) [#/Vol] Ordered By: Omar Jackman on 05-19-2023 Monocytes (Bld) [#/Vol] 1.0 10*3/uL 0.0-0.8 [facility] Monocytes/100 WBC Auto (Bld) Ordered By: Omar Jackman on 05-19-2023 Monocytes/100 WBC (Bld) 9.4 % . [facility] Neutrophils Auto (Bld) [#/Vo l]Ordered By: Omar Jackman on 05-19-2023 Neutrophils (Bld) [#/Vol] 8.1 10*3/uL 1.8-7.7 [facility] Neutrophils/100 WBC Auto (Bl d)Ordered By: Omar Jackman on 05-19-2023 Neutrophils/100 WBC (Bld) 76.6 % . [facility] No Panel InformationOrdered By: Omar Jackman on 05-19-2023 Estimated GFR (CKD-EPI) > 60.0 mL/Min [facility] Creatinine Clearance (Chem 90.14 [facility] Nucleated erythrocytes [Pres ence] in Blood by Automated countOrdered By: Zoroastrianismforest Jackman on 05-19-2023 Nucleated RBC Auto Ql (Bld) 0.1 /100{WBC} 0-0.5 [facility] Platelet mean volume Auto (B ld) [Entitic vol]Ordered By: Omar Jackman on 05-19-2023 Platelet mean volume (Bld) [Entitic vol] 8.3 fL 6.6-10.1 [facility] Platelets Auto (Bld) [#/Vol] Ordered By: Zoroastrianismforest Jackman on 05-19-2023 Platelets (Bld) [#/Vol] 149 10*3/uL 150-450 [facility] Potassium [Moles/volume] in Serum or PlasmaOrdered By: Zoroastrianismforest Jackman on 05-19-2023 Potassium [Moles/Vol] 4.3 mmol/L 3.5-5.1 [facility] Prealbuminon 05-19-2023 Prealbumin [Mass/Vol] 14.3 mg/dL Low 17.0-34.0 [facility] Comment on above: Result Comment: PERF ORMED BY: [facility] [address] [place] [address] OILER ISMAEL HERNANDEZ M.D. Performed By: #### C UMRSA, A1C WTH eA, HGB, [id number], ALB #### [facility] [address] #### NICOTINE #### [facility] , Prealbumin [Mass/volume] in Serum or PlasmaOrdered By: Omar Jackman on 05-19-2023 Prealbumin [Mass/Vol] 14.3 mg/dL 17.0-34.0 [facility] Protein [Mass/volume] in Ser um or PlasmaOrdered By: Omar Jackman on 05-19-2023 Protein [Mass/Vol] 5.5 g/dL 6.4-8.9 [facility] RBC Auto (Bld) [#/Vol]Ordere d By: Omar Jackman on 05-19-2023 RBC (Bld) [#/Vol] 2.67 10*6/uL 3.90-5.60 [facility] Serum or plasma albumin/glob ulin mass ratioOrdered By: Omar Jackman on 05-19-2023 Albumin/Globulin [Mass ratio] 1.3 {ratio} [facility] Serum or plasma anion gap de terminationOrdered By: Omar Jackman on 05-19-2023 Anion gap [Moles/Vol] 8.3 mmol/L 6.0-15.0 [facility] Sodium [Moles/volume] in Ser um or PlasmaOrdered By: Omar Jackman on 05-19-2023 Sodium [Moles/Vol] 135 mmol/L 136-145 [facility] Urea nitrogen [Mass/volume] in Serum or PlasmaOrdered By: Omar Jackman on 05-19-2023 Urea nitrogen [Mass/Vol] 25 mg/dL 7-25 [facility] WBC Auto (Bld) [#/Vol]Ordere d By: Omar Jackman on 05-19-2023 WBC (Bld) [#/Vol] 10.5 10*3/uL 4.1-10.5 [facility] Basic Metabolic Panelon Anion gap [Moles/Vol] 6.2 mmol/L Normal 6.0-15.0 [facility] Comment on above: Performed By: #### C UMRSA, A1C WTH eA, HGB, [id number], ALB #### [facility] [address] [place] [address] [place] #### NICOTINE #### [facility] , Calcium [Mass/Vol] 8.7 mg/dL Normal 8.6-10.3 [facility] Comment on above: Performed By: #### C UMRSA, A1C WTH eA, HGB, [id number], ALB #### [facility] [address] [place] [address] [place] #### NICOTINE #### [facility] , Chloride [Moles/Vol] 104 mmol/L Normal 98-107 [facility] Comment on above: Performed By: #### C UMRSA, A1C WTH eA, HGB, [id number], ALB #### [facility] [address] [place] [address] #### NICOTINE #### [facility] , CO2 [Moles/Vol] 32.7 mmol/L High 21.0-31.0 [facility] Comment on above: Performed By: #### C UMRSA, A1C WTH eA, HGB, [id number], ALB #### [facility] [address] [place] [address] #### NICOTINE #### [facility] , Creatinine [Mass/Vol] 1.17 mg/dL Normal 0.70-1.30 [facility] Comment on above: Performed By: #### C UMRSA, A1C WTH eA, HGB, [id number], ALB #### [facility] [address] [place] [address] [place] #### NICOTINE #### [facility] , Creatinine Clr Calc Pharmacy 71.91 [facility] Comment on above: Result Comment: PERF ORMED BY: [place] [address] OILER JIANLAN SUN M.D. Performed By: #### C UMRSA, A1C WTH eA, HGB, [id number], ALB #### [facility] [address] [place] [address] [place] #### NICOTINE #### [facility] , GFR/1.73 sq M.predicted MDRD (S/P/Bld) [Vol rate/Area] mL/min/{1.73_m2} [facility] Comment on above: Performed By: #### C UMRSA, A1C WTH eA, HGB, [id number], ALB #### [place] [address] [place] #### NICOTINE #### [facility] , Glucose [Mass/Vol] 131 mg/dL High 70-100 [facility] Comment on above: Result Comment: [facility] Glucose Reference Range is dependent on time and content of last meal. Glucose of more than 200 mg/dL in a nonstressed, ambulatory subject supports the diagnosis of Diabetes Mellitus. ADA recommended reference range Performed By: #### C UMRSA, A1C WTH eA, HGB, [id number], ALB #### [place] [address] [place] #### NICOTINE #### [facility] , Potassium [Moles/Vol] 4.9 mmol/L Normal 3.5-5.1 [facility] Comment on above: Performed By: #### C UMRSA, A1C WTH eA, HGB, [id number], ALB #### [place] [address] [place] #### NICOTINE #### [facility] , Sodium [Moles/Vol] 138 mmol/L Normal 136-145 [facility] Comment on above: Performed By: #### C UMRSA, A1C WTH eA, HGB, [id number], ALB #### [place] [address] [place] #### NICOTINE #### [facility] , Urea nitrogen [Mass/Vol] 29 mg/dL High 7-25 [facility] Comment on above: Performed By: #### C UMRSA, A1C WTH eA, HGB, [id number], ALB #### [facility] [address] [place] [address] [place] #### NICOTINE #### [facility] , Basophils Auto (Bld) [#/Vol] Ordered By: Andrea Govea on 05-14-2023 Basophils (Bld) [#/Vol] 0.0 10*3/uL 0.0-0.2 [facility] Basophils/100 WBC Auto (Bld) Ordered By: Andrea Govea on 05-14-2023 Basophils/100 WBC (Bld) 0.1 % . [facility] Calcium [Mass/volume] in Ser um or PlasmaOrdered By: Andrea Govea on 05-14-2023 Calcium [Mass/Vol] 8.7 mg/dL 8.6-10.3 [facility] Carbon dioxide, total [Moles /volume] in Serum or PlasmaOrdered By: Andrea Govea on 05-14-2023 CO2 [Moles/Vol] 32.7 mmol/L 21.0-31.0 [facility] Chloride [Moles/volume] in S gary or PlasmaOrdered By: Andrea Govea on 05-14-2023 Chloride [Moles/Vol] 104 mmol/L 98-107 [facility] Complete Blood Count Auto Di ffon 05-14-2023 Basophils (Bld) [#/Vol] 0.0 10*3/uL Normal 0.0-0.2 [facility] Comment on above: Result Comment: PERF ORMED BY: [place] [address] OILER ISMAEL HERNANDEZ M.D. Performed By: #### C UMRSA, A1C WTH eA, HGB, [id number], ALB #### [facility] [address] [place] [address] [place] #### NICOTINE #### [facility] , Basophils/100 WBC (Bld) 0.1 % Normal . [facility] Comment on above: Performed By: #### C UMRSA, A1C WTH eA, HGB, [id number], ALB #### [facility] [address] [place] [address] [place] #### NICOTINE #### [facility] , Eosinophils (Bld) [#/Vol] 0.0 10*3/uL Normal 0.0-0.45 [facility] Comment on above: Performed By: #### C UMRSA, A1C WTH eA, HGB, [id number], ALB #### [place] [address] [place] #### NICOTINE #### [facility] , Eosinophils/100 WBC (Bld) 0.1 % Normal . [facility] Comment on above: Performed By: #### C UMRSA, A1C WTH eA, HGB, [id number], ALB #### [place] [address] [place] #### NICOTINE #### [facility] , Erythrocyte distribution width (RBC) [Ratio] 14.5 % Normal 12.0-14.8 [facility] Comment on above: Performed By: #### C UMRSA, A1C WTH eA, HGB, [id number], ALB #### [facility] [address] [place] [address] [place] #### NICOTINE #### [facility] , Hematocrit (Bld) [Volume fraction] 31.3 % Low 38.8-50.0 [facility] Comment on above: Performed By: #### C UMRSA, A1C WTH eA, HGB, [id number], ALB #### [facility] [address] [place] [address] [place] #### NICOTINE #### [facility] , Hemoglobin (Bld) [Mass/Vol] 10.8 g/dL Low 13.0-17.0 [facility] Comment on above: Performed By: #### C UMRSA, A1C WTH eA, HGB, [id number], ALB #### [facility] [address] [place] [address] [place] #### NICOTINE #### [facility] , Lymphocytes (Bld) [#/Vol] 0.9 10*3/uL Low 1.00-4.8 [facility] Comment on above: Performed By: #### C UMRSA, A1C WTH eA, HGB, [id number], ALB #### [facility] [address] [place] [address] [place] #### NICOTINE #### [facility] , Lymphocytes/100 WBC (Bld) 6.6 % Normal . [facility] Comment on above: Performed By: #### C UMRSA, A1C WTH eA, HGB, [id number], ALB #### [facility] [address] [place] [address] [place] #### NICOTINE #### [facility] , MCH (RBC) [Entitic mass] 35.9 pg High 27.5-35.2 [facility] Comment on above: Performed By: #### C UMRSA, A1C WTH eA, HGB, [id number], ALB #### [facility] [address] [place] [address] [place] #### NICOTINE #### [facility] , MCV (RBC) [Entitic vol] 103.6 fL High 83.5-101 [facility] Comment on above: Performed By: #### C UMRSA, A1C WTH eA, HGB, [id number], ALB #### [facility] [address] [place] [address] [place] #### NICOTINE #### [facility] , Mean Corpuscular HGB Conc 34.6 g/dL Normal 32.5-35.6 [facility] Comment on above: Performed By: #### C UMRSA, A1C WTH eA, HGB, [id number], ALB #### [facility] [address] [place] [address] [place] #### NICOTINE #### [facility] , Monocytes (Bld) [#/Vol] 1.2 10*3/uL High 0.0-0.8 [facility] Comment on above: Performed By: #### C UMRSA, A1C WTH eA, HGB, [id number], ALB #### [facility] [address] [place] [address] [place] #### NICOTINE #### [facility] , Monocytes/100 WBC (Bld) 9.3 % Normal . [facility] Comment on above: Performed By: #### C UMRSA, A1C WTH eA, HGB, [id number], ALB #### [address] #### NICOTINE #### [facility] , Neutrophils (Bld) [#/Vol] 11.1 10*3/uL High 1.8-7.7 [facility] Comment on above: Performed By: #### C UMRSA, A1C WTH eA, HGB, [id number], ALB #### [place] [address] [place] #### NICOTINE #### [facility] , Neutrophils/100 WBC (Bld) 83.9 % Normal . [facility] Comment on above: Performed By: #### C UMRSA, A1C WTH eA, HGB, [id number], ALB #### [facility] [address] [place] [address] [place] #### NICOTINE #### [facility] , NRBC% 0.1 /100{WBC} Normal 0-0.5 [facility] Comment on above: Performed By: #### C UMRSA, A1C WTH eA, HGB, [id number], ALB #### [place] [address] [place] #### NICOTINE #### [facility] , Platelet mean volume (Bld) [Entitic vol] 8.5 fL Normal 6.6-10.1 [facility] Comment on above: Performed By: #### C UMRSA, A1C WTH eA, HGB, [id number], ALB #### [facility] [address] [place] [address] [place] #### NICOTINE #### [facility] , Platelets (Bld) [#/Vol] 119 10*3/uL Low 150-450 [facility] Comment on above: Performed By: #### C UMRSA, A1C WTH eA, HGB, [id number], ALB #### [facility] [address] [place] [address] #### NICOTINE #### [facility] , RBC (Bld) [#/Vol] 3.02 10*6/uL Low 3.90-5.60 [facility] Comment on above: Performed By: #### C UMRSA, A1C WTH eA, HGB, [id number], ALB #### [facility] [address] [place] [address] [place] #### NICOTINE #### [facility] , WBC (Bld) [#/Vol] 13.2 10*3/uL High 4.1-10.5 [facility] Comment on above: Performed By: #### C UMRSA, A1C WTH eA, HGB, [id number], ALB #### [facility] [address] [place] [address] [place] #### NICOTINE #### [facility] , Creatinine [Mass/volume] in Serum or PlasmaOrdered By: Andrea Govea on 05-14-2023 Creatinine [Mass/Vol] 1.17 mg/dL 0.70-1.30 [facility] Eosinophils Auto (Bld) [#/Vo l]Ordered By: Andrea Govea on 05-14-2023 Eosinophils (Bld) [#/Vol] 0.0 10*3/uL 0.0-0.45 [facility] Eosinophils/100 WBC Auto (Bl d)Ordered By: Andrea Govea on 05-14-2023 Eosinophils/100 WBC (Bld) 0.1 % . [facility] Erythrocyte distribution wid th Auto (RBC) [Ratio]Ordered By: Andrea Govea on 05-14-2023 Erythrocyte distribution width (RBC) [Ratio] 14.5 % 12.0-14.8 [facility] Glucose [Mass/volume] in Ser um or PlasmaOrdered By: Andrea Govea on 05-14-2023 Glucose [Mass/Vol] 131 mg/dL 70-100 [facility] Comment on above: ADA recommended refe rence rangeRandom Glucose Reference Range is dependent on time and content of last meal. Glucose of more than 200 mg/dL in a nonstressed, ambulatory subject supports the diagnosis of Diabetes Mellitus. Hematocrit Auto (Bld) [Volum e fraction]Ordered By: Andrea Govea on 05-14-2023 Hematocrit (Bld) [Volume fraction] 31.3 % 38.8-50.0 [facility] Hemoglobin [Mass/volume] in BloodOrdered By: Anrdea Govea on 05-14-2023 Hemoglobin (Bld) [Mass/Vol] 10.8 g/dL 13.0-17.0 [facility] Leukocytes [#/volume] correc karl for nucleated erythrocytes in Blood by Automated counOrdered By: Andrea Govea on 05-14-2023 WBC corrected for nucl RBC Auto (Bld) [#/Vol] 13.2 10*3/uL 4.1-10.5 [facility] Lymphocytes Auto (Bld) [#/Vo l]Ordered By: Andrea Govea on 05-14-2023 Lymphocytes (Bld) [#/Vol] 0.9 10*3/uL 1.00-4.8 [facility] Lymphocytes/100 WBC Auto (Bl d)Ordered By: Andrea Govea on 05-14-2023 Lymphocytes/100 WBC (Bld) 6.6 % . [facility] MCH Auto (RBC) [Entitic mass ]Ordered By: Andrea Govea on 05-14-2023 MCH (RBC) [Entitic mass] 35.9 pg 27.5-35.2 [facility] MCHC Auto (RBC) [Mass/Vol]Or dered By: Andrea Govea on 05-14-2023 MCHC (RBC) [Mass/Vol] 34.6 g/dL 32.5-35.6 [facility] MCV Auto (RBC) [Entitic vol] Ordered By: Andrea Govea on 05-14-2023 MCV (RBC) [Entitic vol] 103.6 fL 83.5-101 [facility] Monocytes Auto (Bld) [#/Vol] Ordered By: Andrea Govea on 05-14-2023 Monocytes (Bld) [#/Vol] 1.2 10*3/uL 0.0-0.8 [facility] Monocytes/100 WBC Auto (Bld) Ordered By: Andrea Govea on 05-14-2023 Monocytes/100 WBC (Bld) 9.3 % . [facility] Neutrophils Auto (Bld) [#/Vo l]Ordered By: Andrea Govea on 05-14-2023 Neutrophils (Bld) [#/Vol] 11.1 10*3/uL 1.8-7.7 [facility] Neutrophils/100 WBC Auto (Bl d)Ordered By: Andrea Govea on 05-14-2023 Neutrophils/100 WBC (Bld) 83.9 % . [facility] No Panel InformationOrdered By: Andrea Govea on 05-14-2023 Estimated GFR (CKD-EPI) > 60.0 mL/Min [facility] Creatinine Clearance (Chem 71.91 [facility] Nucleated erythrocytes [Pres ence] in Blood by Automated countOrdered By: Andrea Govea on 05-14-2023 Nucleated RBC Auto Ql (Bld) 0.1 /100{WBC} 0-0.5 [facility] Platelet mean volume Auto (B ld) [Entitic vol]Ordered By: Andrea Govea on 05-14-2023 Platelet mean volume (Bld) [Entitic vol] 8.5 fL 6.6-10.1 [facility] Platelets Auto (Bld) [#/Vol] Ordered By: Andrea Govea on 05-14-2023 Platelets (Bld) [#/Vol] 119 10*3/uL 150-450 [facility] Potassium [Moles/volume] in Serum or PlasmaOrdered By: Andrea Govea on 05-14-2023 Potassium [Moles/Vol] 4.9 mmol/L 3.5-5.1 [facility] RBC Auto (Bld) [#/Vol]Ordere d By: Andrea Govea on 05-14-2023 RBC (Bld) [#/Vol] 3.02 10*6/uL 3.90-5.60 [facility] Serum or plasma anion gap de terminationOrdered By: Andrea Govea on 05-14-2023 Anion gap [Moles/Vol] 6.2 mmol/L 6.0-15.0 [facility] Sodium [Moles/volume] in Ser um or PlasmaOrdered By: Andrea Govea on 05-14-2023 Sodium [Moles/Vol] 138 mmol/L 136-145 [facility] Urea nitrogen [Mass/volume] in Serum or PlasmaOrdered By: Andrea Govea on 05-14-2023 Urea nitrogen [Mass/Vol] 29 mg/dL 7-25 [facility] WBC Auto (Bld) [#/Vol]Ordere d By: Andrea Govea on 05-14-2023 WBC (Bld) [#/Vol] 13.2 10*3/uL 4.1-10.5 [facility] Basic Metabolic Panelon 11-0 Anion gap [Moles/Vol] 8.0 mmol/L Normal 6.0-15.0 [facility] Comment on above: Performed By: #### B MP, CBC #### [facility] [address] [place] [address] [place] Calcium [Mass/Vol] 8.7 mg/dL Normal 8.6-10.3 [facility] Comment on above: Performed By: #### B MP, CBC #### [facility] [address] [place] [address] [place] Chloride [Moles/Vol] 101 mmol/L Normal 98-107 [facility] Comment on above: Performed By: #### B MP, CBC #### [facility] [address] [place] [address] [place] CO2 [Moles/Vol] 29.1 mmol/L Normal 21.0-31.0 [facility] Comment on above: Performed By: #### B MP, CBC #### [place] [address] [place] [address] [place] Creatinine [Mass/Vol] 1.32 mg/dL High 0.70-1.30 [facility] Comment on above: Performed By: #### B MP, CBC #### [place] [address] [place] [address] [place] Creatinine Clr Calc Pharmacy 63.68 [facility] Comment on above: Result Comment: PERF ORMED BY: [place] [address] OILER ISMAEL HERNANDEZ M.D. Performed By: #### B MP, CBC #### [place] [address] [place] [address] [place] GFR/1.73 sq M.predicted MDRD (S/P/Bld) [Vol rate/Area] 55.209 mL/min/{1.73_m2} Normal [facility] Comment on above: Performed By: #### B MP, CBC #### [place] [address] [place] [address] [place] Glucose [Mass/Vol] 200 mg/dL High 70-100 [facility] Comment on above: Result Comment: [place] Glucose Reference Range is dependent on time and content of last meal. Glucose of more than 200 mg/dL in a nonstressed, ambulatory subject supports the diagnosis of Diabetes Mellitus. ADA recommended reference range Performed By: #### B MP, CBC #### [place] [address] [place] [address] [place] Potassium [Moles/Vol] 5.1 mmol/L Normal 3.5-5.1 [facility] Comment on above: Performed By: #### B MP, CBC #### [place] [address] [place] [address] [place] Sodium [Moles/Vol] 133 mmol/L Low 136-145 [facility] Comment on above: Performed By: #### B MP, CBC #### [address] Urea nitrogen [Mass/Vol] 25 mg/dL Normal 7-25 [facility] Comment on above: Performed By: #### B MP, CBC #### [address] Complete Blood Count Auto Di ffon 05-13-2023 Basophils (Bld) [#/Vol] 0.0 10*3/uL Normal 0.0-0.2 [facility] Comment on above: Result Comment: PERF ORMED BY: [place] [address] OILER ISMAEL HERNANDEZ M.D. Performed By: #### B MP, CBC #### [address] Basophils/100 WBC (Bld) 0.0 % Normal . [facility] Comment on above: Performed By: #### B MP, CBC #### [address] Eosinophils (Bld) [#/Vol] 0.0 10*3/uL Normal 0.0-0.45 [facility] Comment on above: Performed By: #### B MP, CBC #### [address] Eosinophils/100 WBC (Bld) 0.0 % Normal . [facility] Comment on above: Performed By: #### B MP, CBC #### [address] Erythrocyte distribution width (RBC) [Ratio] 14.3 % Normal 12.0-14.8 [facility] Comment on above: Performed By: #### B MP, CBC #### [address] Hematocrit (Bld) [Volume fraction] 35.4 % Low 38.8-50.0 [facility] Comment on above: Performed By: #### B MP, CBC #### [facility] [address] Hemoglobin (Bld) [Mass/Vol] 12.1 g/dL Low 13.0-17.0 [facility] Comment on above: Performed By: #### B MP, CBC #### [facility] [address] Lymphocytes (Bld) [#/Vol] 0.6 10*3/uL Low 1.00-4.8 [facility] Comment on above: Performed By: #### B MP, CBC #### [place] [address] Lymphocytes/100 WBC (Bld) 5.2 % Normal . [facility] Comment on above: Performed By: #### B MP, CBC #### [place] [address] MCH (RBC) [Entitic mass] 35.4 pg High 27.5-35.2 [facility] Comment on above: Performed By: #### B MP, CBC #### [place] [address] MCV (RBC) [Entitic vol] 103.9 fL High 83.5-101 [facility] Comment on above: Performed By: #### B MP, CBC #### [facility] [address] Mean Corpuscular HGB Conc 34.1 g/dL Normal 32.5-35.6 [facility] Comment on above: Performed By: #### B MP, CBC #### [facility] [address] [place] [address] [place] Monocytes (Bld) [#/Vol] 0.5 10*3/uL Normal 0.0-0.8 [facility] Comment on above: Performed By: #### B MP, CBC #### [facility] [address] [place] [address] [place] Monocytes/100 WBC (Bld) 4.3 % Normal . [facility] Comment on above: Performed By: #### B MP, CBC #### [facility] [address] [place] [address] [place] Neutrophils (Bld) [#/Vol] 10.3 10*3/uL High 1.8-7.7 [facility] Comment on above: Performed By: #### B MP, CBC #### [facility] [address] [place] [address] [place] Neutrophils/100 WBC (Bld) 90.5 % Normal . [facility] Comment on above: Performed By: #### B MP, CBC #### [place] [address] NRBC% 0.0 /100{WBC} Normal 0-0.5 [facility] Comment on above: Performed By: #### B MP, CBC #### [facility] [address] Platelet mean volume (Bld) [Entitic vol] 8.8 fL Normal 6.6-10.1 [facility] Comment on above: Performed By: #### B MP, CBC #### [place] [address] [place] [address] [place] Platelets (Bld) [#/Vol] 115 10*3/uL Low 150-450 [facility] Comment on above: Performed By: #### B MP, CBC #### [facility] [address] [place] [address] [place] RBC (Bld) [#/Vol] 3.40 10*6/uL Low 3.90-5.60 [facility] Comment on above: Performed By: #### B MP, CBC #### [facility] [address] [place] [address] [place] WBC (Bld) [#/Vol] 11.4 10*3/uL High 4.1-10.5 [facility] Comment on above: Performed By: #### B MP, CBC #### [place] [address] [place] [address] [place] L[place] 05-12-2023 L ------- Specimen: [id number] Received: 05/12/23 Status: AMBER Padgett Num: [id number] Spec Type: Surgical Subm Dr: Andrea Govea MD Tissues: A Joint/Knee (LT KNEE) Procedures: MIGUEL ANGEL, Gross/Micro L4, Decalcification Age/ Patient Sex Location Account Attending Physician Al Kuo 77/Martínez MD [id number] Andrea Govea MD SPEC NUM: [id number] RECD: 05/12/23 STATUS: AMBER PADGETT NUM: [id number] LEW: 05/12/[address] [facility] [address]: Andrea oGvea MD ENTERED: 05/12/[address] [facility] [address]: SPEC TYPE: Surgical DEPT: S ORDERED: MIGUEL ANGEL Gross/Micro L4, Decalcification ORDERED: MIGUEL ANGEL, Lanie/Micro L4, Decalcification Pathological Diagnosis Knee bone and [...] is taken. Gross examination only. CPT Codes 48069 Specimen: [id number] Received: 05/12/23 Status: AMBER Padgett Num: [id number] Spec Type: Surgical Subm Dr: Andrea Govea MD Tissues: A Joint/Knee (LT KNEE) Procedures: Lanie MICHELLE/Micro L4, Decalcification Patient: SegundodianemamtaAl Osvaldo [id number] (Continued) Specimen: [id number] Received: 05/12/23 (Continued) Signed (signature on file) Zofia Lechuga MD 05/26/23 1534 Specimen: [id number] Received: 05/12/23 Status: AMBER Bambi Num: [id number] Spec Type: Surgical Subm Dr: Andrea Govea MD Tissues: A Joint/Knee (LT KNEE) Procedures: MIGUEL ANGEL, Gross/Micro L4, Decalcification Patient: Al Kuo [id number] (Continued) Specimen: [id number] Received: 05/12/23 (Continued) Lanie Photo Specimen: [id number] Received: 05/12/23 Status: AMBER Padgett Num: [id number] Spec Type: Surgical Subm Dr: Andrea Govea MD Tissues: A Joint/Knee (LT KNEE) Procedures: Lanie MICHELLE/Asa Redman, Decalcification Patient: Al Kuo [id number] (Continued) Signed (signature on file) Zofia Lechuga MD 05/26/23 1534 [facility] XR knee LT 2Von 05-12-2023 XR knee LT 2V [facility] [address] [place] [address] [place] [address] XRay Report Signed Patient: Al Kuo MR#: [id number] : 1945 Acct:[id number] Age/Sex: 77 / M ADM Date: 05/12/23 Loc: Room: [address] [place] [address] Type: REG SD Attending Dr: Andrea Govea II, MD Copies [...] Tyrell Walker M.D.05/12/2023 4:32 PM Dictation Location: [place] [address] Transcribed By: [facility] 05/12/23 1632 Dictated By: Tyrell Walker DO 05/12/23 1631 Signed By: 05/12/23 1632 [facility] Basic Metabolic Panelon 10- Anion gap [Moles/Vol] 7.0 mmol/L Normal 6.0-15.0 [facility] Comment on above: Performed By: #### C UMRSA, A1C WTH eA, HGB, [id number], ALB #### [facility] [address] #### NICOTINE #### [facility] , Calcium [Mass/Vol] 8.8 mg/dL Normal 8.6-10.3 [facility] Comment on above: Result Comment: PERF ORMED BY: [place] [address] OILER ISMAEL HERNANDEZ M.D. Performed By: #### C UMRSA, A1C WTH eA, HGB, [id number], ALB #### [place] [address] [place] #### NICOTINE #### [facility] , Chloride [Moles/Vol] 100 mmol/L Normal 98-107 [facility] Comment on above: Performed By: #### C UMRSA, A1C WTH eA, HGB, [id number], ALB #### [place] [address] [place] #### NICOTINE #### [facility] , CO2 [Moles/Vol] 33.0 mmol/L High 21.0-31.0 [facility] Comment on above: Performed By: #### C UMRSA, A1C WTH eA, HGB, [id number], ALB #### [place] [address] [place] #### NICOTINE #### [facility] , Creatinine [Mass/Vol] 1.22 mg/dL Normal 0.70-1.30 [facility] Comment on above: Performed By: #### C UMRSA, A1C WTH eA, HGB, [id number], ALB #### [facility] [address] [place] [address] [place] #### NICOTINE #### [facility] , GFR/1.73 sq M.predicted MDRD (S/P/Bld) [Vol rate/Area] mL/min/{1.73_m2} Normal [facility] Comment on above: Performed By: #### C UMRSA, A1C WTH eA, HGB, [id number], ALB #### [facility] [address] [place] [address] [place] #### NICOTINE #### [facility] , Glucose [Mass/Vol] 128 mg/dL High 70-100 [facility] Comment on above: Result Comment: [place] Glucose Reference Range is dependent on time and content of last meal. Glucose of more than 200 mg/dL in a nonstressed, ambulatory subject supports the diagnosis of Diabetes Mellitus. ADA recommended reference range Performed By: #### C UMRSA, A1C WTH eA, HGB, [id number], ALB #### [facility] [address] [place] [address] [place] #### NICOTINE #### [facility] , Potassium [Moles/Vol] 5.0 mmol/L Normal 3.5-5.1 [facility] Comment on above: Performed By: #### C UMRSA, A1C WTH eA, HGB, [id number], ALB #### [place] [address] [place] #### NICOTINE #### [facility] , Sodium [Moles/Vol] 135 mmol/L Low 136-145 [facility] Comment on above: Performed By: #### C UMRSA, A1C WTH eA, HGB, [id number], ALB #### [facility] [address] [place] [address] [place] #### NICOTINE #### [facility] , Urea nitrogen [Mass/Vol] 16 mg/dL Normal 7-25 [facility] Comment on above: Performed By: #### C UMRSA, A1C WTH eA, HGB, [id number], ALB #### [facility] [address] [place] [address] [place] #### NICOTINE #### [facility] , Basophils Auto (Bld) [#/Vol] Ordered By: Andrea Govea on 04-28-2023 Basophils (Bld) [#/Vol] 0.0 10*3/uL 0.0-0.2 [facility] Basophils/100 WBC Auto (Bld) Ordered By: Andrea Govea on 04-28-2023 Basophils/100 WBC (Bld) 0.4 % . [facility] Bilirubin Test strip Ql (U)O rdered By: Andrea Govea on 04-28-2023 Bilirubin Ql (U) Negative Negative [facility] Calcium [Mass/volume] in Ser um or PlasmaOrdered By: Andrea Govea on 04-28-2023 Calcium [Mass/Vol] 8.8 mg/dL 8.6-10.3 [facility] Carbon dioxide, total [Moles /volume] in Serum or PlasmaOrdered By: Andrea Govea on 04-28-2023 CO2 [Moles/Vol] 33.0 mmol/L 21.0-31.0 [facility] Chloride [Moles/volume] in S gary or PlasmaOrdered By: Andrea Govea on 04-28-2023 Chloride [Moles/Vol] 100 mmol/L 98-107 [facility] Color Auto (U)Ordered By: Silvina Govea on 04-28-2023 Color (U) Yellow Yellow [facility] Complete Blood Count Auto Di ffon 04-28-2023 Basophils (Bld) [#/Vol] 0.0 10*3/uL Normal 0.0-0.2 [facility] Comment on above: Result Comment: PERF ORMED BY: [place] [address] OILER ISMAEL HERNANDEZ M.D. Performed By: #### F RUC #### [facility] , #### CBC #### [facility] [address] [place] [address] Basophils/100 WBC (Bld) 0.4 % Normal . [facility] Comment on above: Performed By: #### F RUC #### [facility] , #### CBC #### [facility] [address] Eosinophils (Bld) [#/Vol] 0.2 10*3/uL Normal 0.0-0.45 [facility] Comment on above: Performed By: #### F RUC #### [facility] , #### CBC #### [place] [address] [place] Eosinophils/100 WBC (Bld) 3.1 % Normal . [facility] Comment on above: Performed By: #### F RUC #### [facility] , #### CBC #### [address] Erythrocyte distribution width (RBC) [Ratio] 14.2 % Normal 12.0-14.8 [facility] Comment on above: Performed By: #### F RUC #### [facility] , #### CBC #### [address] Hematocrit (Bld) [Volume fraction] 38.2 % Low 38.8-50.0 [facility] Comment on above: Performed By: #### F RUC #### [facility] , #### CBC #### [address] Hemoglobin (Bld) [Mass/Vol] 13.2 g/dL Normal 13.0-17.0 [facility] Comment on above: Performed By: #### F RUC #### [facility] , #### CBC #### [address] Lymphocytes (Bld) [#/Vol] 1.0 10*3/uL Normal 1.00-4.8 [facility] Comment on above: Performed By: #### F RUC #### [facility] , #### CBC #### [facility] [address] [place] [address] [place] Lymphocytes/100 WBC (Bld) 12.1 % Normal . [facility] Comment on above: Performed By: #### F RUC #### [facility] , #### CBC #### [address] MCH (RBC) [Entitic mass] 35.7 pg High 27.5-35.2 [facility] Comment on above: Performed By: #### F RUC #### [facility] , #### CBC #### [address] MCV (RBC) [Entitic vol] 103.3 fL High 83.5-101 [facility] Comment on above: Performed By: #### F RUC #### [facility] , #### CBC #### [address] Mean Corpuscular HGB Conc 34.6 g/dL Normal 32.5-35.6 [facility] Comment on above: Performed By: #### F RUC #### [facility] , #### CBC #### [address] Monocytes (Bld) [#/Vol] 0.6 10*3/uL Normal 0.0-0.8 [facility] Comment on above: Performed By: #### F RUC #### [facility] , #### CBC #### [address] Monocytes/100 WBC (Bld) 7.9 % Normal . [facility] Comment on above: Performed By: #### F RUC #### [facility] , #### CBC #### [place] [address] [place] Neutrophils (Bld) [#/Vol] 6.1 10*3/uL Normal 1.8-7.7 [facility] Comment on above: Performed By: #### F RUC #### [facility] , #### CBC #### [place] [address] [place] Neutrophils/100 WBC (Bld) 76.5 % Normal . [facility] Comment on above: Performed By: #### F RUC #### [facility] , #### CBC #### [facility] [address] NRBC% 0.1 /100{WBC} Normal 0-0.5 [facility] Comment on above: Performed By: #### F RUC #### [facility] , #### CBC #### [place] [address] Platelet mean volume (Bld) [Entitic vol] 8.6 fL Normal 6.6-10.1 [facility] Comment on above: Performed By: #### F RUC #### [facility] , #### CBC #### [address] Platelets (Bld) [#/Vol] 110 10*3/uL Low 150-450 [facility] Comment on above: Performed By: #### F RUC #### [facility] , #### CBC #### [facility] [address] [place] [address] RBC (Bld) [#/Vol] 3.69 10*6/uL Low 3.90-5.60 [facility] Comment on above: Performed By: #### F RUC #### [facility] , #### CBC #### [facility] [address] [place] [address] WBC (Bld) [#/Vol] 8.0 10*3/uL Normal 4.1-10.5 [facility] Comment on above: Performed By: #### F RUC #### [facility] , #### CBC #### [facility] [address] [place] [address] Creatinine [Mass/volume] in Serum or PlasmaOrdered By: Andrea Govea on 04-28-2023 Creatinine [Mass/Vol] 1.22 mg/dL 0.70-1.30 [facility] ECG 12 lead ECGon 04-28-2023 ECG 12 lead ECG [facility] [place] [address] [place] [address] Electrocardiograph Report Signed Patient: Al Kuo MR#: [id number] : 1945 Acct:[id number] Age/Sex: 77 / M ADM Date: 04/28/23 Loc: PS Room: Type: [facility] Attending Dr: Andrea Govea II, MD Ordering [...] PM Referred By: JEFERSON Electronically Signed By:ANDREA RAIMREZ DO Transcribed By: MUS Signed By Andrea Ramirez DO 04/28 1909 Normal [facility] Eosinophils Auto (Bld) [#/Vo l]Ordered By: Andrea Govea on 04-28-2023 Eosinophils (Bld) [#/Vol] 0.2 10*3/uL 0.0-0.45 [facility] Eosinophils/100 WBC Auto (Bl d)Ordered By: Andrea Govea on 04-28-2023 Eosinophils/100 WBC (Bld) 3.1 % . [facility] Erythrocyte distribution wid th Auto (RBC) [Ratio]Ordered By: Andrea Govea on 04-28-2023 Erythrocyte distribution width (RBC) [Ratio] 14.2 % 12.0-14.8 [facility] Fructosamineon 04-28-2023 Fructosamine 223 umol/L Normal 0-285 [facility] Comment on above: Result Comment: Publ ished reference interval for apparently healthy subjects between age 20 and 60 is 205 - 285 umol/L and in a poorly controlled diabetic population is 228 - 563 umol/L with a mean of 396 umol/L. Performed at: - [facility] [address] [place], [place] [id number] [employer] Vendor: Mango Cantu PhD, Phone: [phone] PERFORMED BY: [place] [address] OILER ISMAEL HERNANDEZ M.D. Performed By: #### C UMRSA, A1C WTH eA, HGB, [id number], ALB #### [facility] [address] [place] [address] #### NICOTINE #### [facility] , Fructosamine [Moles/volume] in Serum or PlasmaOrdered By: Andrea Govea on 04-28-2023 Fructosamine [Moles/Vol] 223 umol/L 0-285 [facility] Comment on above: Published reference interval for apparently healthysubjects between age 20 and 60 is 205 - 285 umol/L and in apoorly controlled diabetic population is 228 - 563 umol/Lwith a mean of 396 umol/L.Performed at: - [facility] [id number] [place], [place] [id number] Director: Mango Cantu PhD, Phone: [phone] Glucose [Mass/volume] in Ser um or PlasmaOrdered By: Andrea Govea on 04-28-2023 Glucose [Mass/Vol] 128 mg/dL 70-100 [facility] Comment on above: ADA recommended refe rence rangeRandom Glucose Reference Range is dependent on time and content of last meal. Glucose of more than 200 mg/dL in a nonstressed, ambulatory subject supports the diagnosis of Diabetes Mellitus. Hematocrit Auto (Bld) [Volum e fraction]Ordered By: Andrea Govea on 04-28-2023 Hematocrit (Bld) [Volume fraction] 38.2 % 38.8-50.0 [facility] Hemoglobin [Mass/volume] in BloodOrdered By: Andrea Govea on 04-28-2023 Hemoglobin (Bld) [Mass/Vol] 13.2 g/dL 13.0-17.0 [facility] Ketones Auto test strip (U) [Mass/Vol]Ordered By: Andrea Govea on 04-28-2023 Ketones (U) [Mass/Vol] Trace Negative Fi [facility] Leukocytes [#/volume] correc karl for nucleated erythrocytes in Blood by Automated counOrdered By: Andrea Govea on 04-28-2023 WBC corrected for nucl RBC Auto (Bld) [#/Vol] 8.0 10*3/uL 4.1-10.5 [facility] Lymphocytes Auto (Bld) [#/Vo l]Ordered By: Andrea Govea on 04-28-2023 Lymphocytes (Bld) [#/Vol] 1.0 10*3/uL 1.00-4.8 [facility] Lymphocytes/100 WBC Auto (Bl d)Ordered By: Andrea Govea on 04-28-2023 Lymphocytes/100 WBC (Bld) 12.1 % . [facility] MCH Auto (RBC) [Entitic mass ]Ordered By: Andrea Govea on 04-28-2023 MCH (RBC) [Entitic mass] 35.7 pg 27.5-35.2 [facility] MCHC Auto (RBC) [Mass/Vol]Or dered By: Andrea Govea on 04-28-2023 MCHC (RBC) [Mass/Vol] 34.6 g/dL 32.5-35.6 [facility] MCV Auto (RBC) [Entitic vol] Ordered By: Andrea Govea on 04-28-2023 MCV (RBC) [Entitic vol] 103.3 fL 83.5-101 [facility] Monocytes Auto (Bld) [#/Vol] Ordered By: Andrea Govea on 04-28-2023 Monocytes (Bld) [#/Vol] 0.6 10*3/uL 0.0-0.8 [facility] Monocytes/100 WBC Auto (Bld) Ordered By: Andrea Govea on 04-28-2023 Monocytes/100 WBC (Bld) 7.9 % . [facility] Neutrophils Auto (Bld) [#/Vo l]Ordered By: Andrea Govea on 04-28-2023 Neutrophils (Bld) [#/Vol] 6.1 10*3/uL 1.8-7.7 [facility] Neutrophils/100 WBC Auto (Bl d)Ordered By: Andrea Govea on 04-28-2023 Neutrophils/100 WBC (Bld) 76.5 % . [facility] Nitrite Test strip Ql (U)Ord ered By: Andrea Govea on 04-28-2023 Nitrite Ql (U) Negative Negative [facility] No Panel InformationOrdered By: Andrea Govea on 04-28-2023 Estimated GFR (CKD-EPI) > 60.0 mL/Min [facility] Creatinine Clearance (Chem N/A [facility] Nucleated erythrocytes [Pres ence] in Blood by Automated countOrdered By: Andrea Govea on 04-28-2023 Nucleated RBC Auto Ql (Bld) 0.1 /100{WBC} 0-0.5 [facility] PST Type and Screenon 2022 ABO and Rh group Nom (Bld) Blood group A Rh(D) negative Normal [facility] Comment on above: Order Comment: Reaso n for Exam Age-related osteoporosis without current pathological fractu FASTING. JKW Result Comment: PERF ORMED BY: [facility] [address] [place] [address] OILER ISMAEL HERNANDEZ M.D. Platelet mean volume Auto (B ld) [Entitic vol]Ordered By: Andrea Govea on 04-28-2023 Platelet mean volume (Bld) [Entitic vol] 8.6 fL 6.6-10.1 [facility] Platelets Auto (Bld) [#/Vol] Ordered By: Andrea Govea on 04-28-2023 Platelets (Bld) [#/Vol] 110 10*3/uL 150-450 [facility] Potassium [Moles/volume] in Serum or PlasmaOrdered By: Andrea Govea on 04-28-2023 Potassium [Moles/Vol] 5.0 mmol/L 3.5-5.1 [facility] Protein Auto test strip (U) [Mass/Vol]Ordered By: Andrea Govea on 04-28-2023 Protein (U) [Mass/Vol] Negative Negative [facility] RBC Auto (Bld) [#/Vol]Ordere d By: Andrea Govea on 04-28-2023 RBC (Bld) [#/Vol] 3.69 10*6/uL 3.90-5.60 [facility] Serum or plasma anion gap de terminationOrdered By: Andrea Govea on 04-28-2023 Anion gap [Moles/Vol] 7.0 mmol/L 6.0-15.0 [facility] Sodium [Moles/volume] in Ser um or PlasmaOrdered By: Andrea Govea on 04-28-2023 Sodium [Moles/Vol] 135 mmol/L 136-145 [facility] Specific gravity Auto test s trip (U) [Rel density]Ordered By: Andrea Govea on 04-28-2023 Specific gravity (U) [Rel density] 1.015 1.001-1.03 0 [facility] Urea nitrogen [Mass/volume] in Serum or PlasmaOrdered By: Andrea Govea on 04-28-2023 Urea nitrogen [Mass/Vol] 16 mg/dL 7-25 [facility] Urinalysison 04-28-2023 Appearance (U) Clear Normal Clear [facility] Comment on above: Order Comment: Name Collection Type:: Clean-Voided Midstream Performed By: #### U A #### [facility] [address] [place] [address] [place] Bilirubin,Urine Negative Normal Negative [facility] Comment on above: Order Comment: Name Collection Type:: Clean-Voided Midstream Performed By: #### U A #### [facility] [address] [place] [address] [place] Color (U) Yellow Normal Yellow [facility] Comment on above: Order Comment: Name Collection Type:: Clean-Voided Midstream Performed By: #### U A #### [facility] [address] [place] [address] [place] Glucose Ql (U) Normal Normal Normal [facility] Comment on above: Order Comment: Name Collection Type:: Clean-Voided Midstream Performed By: #### U A #### [facility] [address] [place] [address] Ketones Ql (U) Trace High Negative [facility] Comment on above: Order Comment: Name Collection Type:: Clean-Voided Midstream Performed By: #### U A #### [facility] [address] [place] [address] Leukocyte esterase Test strip Ql (U) Negative Normal Negative [facility] Comment on above: Order Comment: Name Collection Type:: Clean-Voided Midstream Performed By: #### U A #### [address] Nitrite,Urine Negative Normal Negative [facility] Comment on above: Order Comment: Name Collection Type:: Clean-Voided Midstream Performed By: #### U A #### [place] [address] [place] Occult Blood,Urine Negative Normal Negative [facility] Comment on above: Order Comment: Name Collection Type:: Clean-Voided Midstream Result Comment: PERF ORMED BY: [place] [address] OIL[address] ISMAEL HERNANDEZ M.D. Performed By: #### U A #### [facility] [address] [place] [address] [place] pH (U) 5.5 [pH] Normal 5.0-9.0 [facility] Comment on above: Order Comment: Name Collection Type:: Clean-Voided Midstream Performed By: #### U A #### [facility] [address] [place] [address] [place] Protein,Urine Negative Normal Negative [facility] Comment on above: Order Comment: Name Collection Type:: Clean-Voided Midstream Performed By: #### U A #### [address] Specificy [place],Urine 1.015 Normal 1.001-1.03 0 [facility] Comment on above: Order Comment: Name Collection Type:: Clean-Voided Midstream Performed By: #### U A #### [facility] [address] [place] [address] [place] Urobilinogen,Urine Normal Normal Normal [facility] Comment on above: Order Comment: Name Collection Type:: Clean-Voided Midstream Performed By: #### U A #### [facility] [address] [place] [address] [place] Urine clarity by refractomet ry automatedOrdered By: Andrea Govea on 04-28-2023 Clarity Refractometry automated (U) Clear Clear [facility] Urine glucose measurement by automated test strip (mass/volume)Ordered By: Andrea Govea on 04-28-2023 Glucose Auto test strip (U) [Mass/Vol] Normal mg/dL Normal [facility] Urine hemoglobin detection b y automated test stripOrdered By: Andrea Govea on 04-28-2023 Hemoglobin Auto test strip Ql (U) Negative Negative [facility] Urine leukocyte esterase det ection by automated test stripOrdered By: Andrea Govea on 04-28-2023 Leukocyte esterase Auto test strip Ql (U) Negative Negative [facility] Urobilinogen Auto test strip (U) [Mass/Vol]Ordered By: Andrea Govea on 04-28-2023 Urobilinogen (U) [Mass/Vol] Normal mg/dL Normal [facility] WBC Auto (Bld) [#/Vol]Ordere d By: Andrea Govea on 04-28-2023 WBC (Bld) [#/Vol] 8.0 10*3/uL 4.1-10.5 [facility] pH Auto test strip (U)Ordere d By: Andrea Govea on 04-28-2023 pH (U) 5.5 [pH] 5.0-9.0 [facility] A1C with Estimated Average G luon 04-01-2023 Glucose [Mass/Vol] 114 mg/dL Normal [facility] Comment on above: Order Comment: Reaso n for Exam Age-related osteoporosis without current pathological fractu Result Comment: PERF ORMED BY: [facility] [address] [place] [address] OILER ISMAEL HERNANDEZ M.D. Performed By: #### C UMRSA, A1C WTH eA, HGB, [id number], ALB #### [place] [address] [place] #### NICOTINE #### [facility] , HbA1c (Bld) [Mass fraction] 5.6 % Normal 4.3-5.6 [facility] Comment on above: Order Comment: Reaso n for Exam Age-related osteoporosis without current pathological fractu Result Comment: Incr eased risk for diabetes: 5.7 - 6.4 diabetes: >6.4 glycemic control for adults with diabetes: <7.0 Performed By: #### C UMRSA, A1C WTH eA, HGB, [id number], ALB #### [address] #### NICOTINE #### [facility] , Albumin Levelon 04-01-2023 Albumin [Mass/Vol] 4.0 g/dL Normal 3.5-5.7 [facility] Comment on above: Order Comment: Reaso n for Exam Age-related osteoporosis without current pathological fractu FASTING. JKW Performed By: #### C UMRSA, A1C WTH eA, HGB, [id number], ALB #### [place] [address] [place] #### NICOTINE #### [facility] , Albumin [Mass/volume] in Ser um or Plasma by Bromocresol green (BCG) dye binding methoOrdered By: Andrea Govea on 04-01-2023 Albumin BCG dye [Mass/Vol] 4.0 g/dL 3.5-5.7 [facility] Cotinine [Mass/volume] in Se rum or PlasmaOrdered By: Andrea Govea on 04-01-2023 Cotinine [Mass/Vol] <1.0 ng/mL . [facility] Comment on above: This test was develo ped and its performance characteristicsdetermined by [facility]. It has not been cleared orapproved by the Food and Drug Administration.Cotinine levels greater than 20.0 are consistent with theuse of tobacco or tobacco cessation products.Performed at: - [facility] [id number] Director: Daniel Ann MD, Phone: [phone] Glucose mean value [Mass/vol ume] in Blood Estimated from glycated hemoglobinOrdered By: Andrea Govea on 04-01-2023 Average glucose Estimated from glycated hemoglobin (Bld) [Mass/Vol] 114 mg/dL [facility] Hemoglobinon 04-01-2023 Hemoglobin (Bld) [Mass/Vol] 14.3 g/dL Normal 13.0-17.0 [facility] Comment on above: Order Comment: Reaso n for Exam Age-related osteoporosis without current pathological fractu Result Comment: PERF ORMED BY: [place] [address] OILER ISMAEL HERNANDEZ M.D. Performed By: #### C UMRSA, A1C WTH eA, HGB, [id number], ALB #### [facility] [address] [place] [address] #### NICOTINE #### [facility] , Hemoglobin A1c percentageOrd ered By: Andrea Govea on 04-01-2023 HbA1c (Bld) [Mass fraction] 5.6 % 4.3-5.6 [facility] Comment on above: Increased risk for d iabetes: 5.7 - 6.4diabetes: >6.4glycemic control for adults with diabetes: <7.0 Hemoglobin [Mass/volume] in BloodOrdered By: Andrea Govea on 04-01-2023 Hemoglobin (Bld) [Mass/Vol] 14.3 g/dL 13.0-17.0 [facility] MRSA Cultureon 04-01-2023 MRSA Culture Reason for Exam Age- related osteoporosis without current pathological fractu Nasal Reason for Exam: Age-related osteoporosis without current pathological fractu : Nasal MRSA Culture Results No MRSA Isolated 2 Days PERFORMED BY: [place] [address] OILER ISMAEL HERNANDEZ M.D. Normal [facility] Comment on above: Performed By: #### C UMRSA, A1C WTH eA, HGB, [id number], ALB #### [facility] [address] [place] [address] [place] #### NICOTINE #### [facility] , Nicotine [Mass/volume] in Se rum or PlasmaOrdered By: Andrea Govea on 04-01-2023 Nicotine [Mass/Vol] <1.0 ng/mL . [facility] Comment on above: This test was develo ped and its performance characteristicsdetermined by [facility]. It has not been cleared orapproved by the Food and Drug Administration.Nicotine levels greater than 2.0 are consistent with theuse of tobacco or tobacco cessation products. Nicotine/Cotinine Bloodon Cotinine, Blood <1.0 Normal . [facility] Comment on above: Order Comment: Reaso n for Exam Age-related osteoporosis without current pathological fractu Result Comment: This test was developed and its performance characteristics determined by [employer]. It has not been cleared or approved by the Food and Drug Administration. Cotinine levels greater than 20.0 are consistent with the use of tobacco or tobacco cessation products. Performed at: [address] [id number] [employer] Vendor: Daniel Ann MD, Phone: [phone] PERFORMED BY: [place] [address] OILER ISMAEL HERNANDEZ M.D. Performed By: #### C UMRSA, A1C WT eA, HGB, [id number], ALB #### [facility] [address] [place] [address] [place] #### NICOTINE #### [facility] , Nicotine, Blood <1.0 Normal . [facility] Comment on above: Order Comment: Reaso n for Exam Age-related osteoporosis without current pathological fractu Result Comment: This test was developed and its performance characteristics determined by [employer]. It has not been cleared or approved by the Food and Drug Administration. Nicotine levels greater than 2.0 are consistent with the use of tobacco or tobacco cessation products. Performed By: #### C UMRSA, A1C WTH eA, HGB, [id number], ALB #### [place] [address] [place] #### NICOTINE #### [facility] , Vitamin D 25 Hydroxy Totalon 04-01-2023 Vitamin D 25 Hydroxy Total 87.1 ng/mL Normal 30-100 [facility] Comment on above: Order Comment: Reaso n for Exam Age-related osteoporosis without current pathological fractu FASTING. JKW Result Comment: KAY MIN D STATUS 25(OH)VITAMIN D RANGE (ng/mL) Deficient <20 Insufficient 20 to <30 Sufficient 30 to 100 Reference: Vicenta Hendricks, Marcelo MASCORRO, et al. Evaluation,treatment, and prevention of vitamin D deficiency; an Endocrine Society clinical practice guideline. JCEM. 2010; 96(7):191-. PERFORMED BY: [place] [address] OILER ISMAEL HERNANDEZ M.D. Performed By: #### C UMRSA, A1C WTH eA, HGB, [id number], ALB #### [address] #### NICOTINE #### [facility] , Vitamin D+Metabolites [Mass/ volume] in Serum or PlasmaOrdered By: Andrea Govea on 04-01-2023 Vitamin D+Metabolites [Mass/Vol] 87.1 ng/mL 30-100 [facility] Comment on above: VITAMIN D STATUS 25( OH)VITAMIN D RANGE (ng/mL) Deficient <20 Insufficient 20 to <30Sufficient 30 to 100Reference: Vicenta Hendricks, Marcelo MASCORRO, et al. Evaluation,treatment, and prevention of vitamin D deficiency; an Endocrine Society clinical practice guideline. JCEM. 2010; 96(7):191-. Wound methicillin resistant Staphylococcus aureus (MRSA) cultureOrdered By: Andrea Govea on 04-01-2023 MRSA isol Org specific cx Ql (Unsp spec) [facility] MRSA isol Org specific cx Ql (Unsp spec) [facility] XR knee LT 4V*on 04-01-2023 XR knee LT 4V* [facility] Main [place] [id number] XRay Report Signed Patient: Al Kuo MR#: [id number] : 1945 Acct:[id number] Age/Sex: 77 / M ADM Date: 04/01/23 Loc: [facility] Room: Type: [facility] Attending Dr: Andrea Govea II, MD Copies [...] Drew Duran M.D.04/01/2023 12:40 PM Dictation Location: [place] [address] Transcribed By: [facility] 04/01/23 1240 Dictated By: Drew Duran II, MD 04/01/23 1239 Signed By: 04/01/23 1240 Normal [facility] XR knee RT 3V - NOT FOR ER U Yamileth 04-01-2023 XR knee RT 3V - NOT FOR ER USE [facility] [address] [address] XRay Report Signed Patient: Al Kuo MR#: [id number] : 1945 Acct:[id number] Age/Sex: 77 / M ADM Date: 04/01/23 Loc: [facility] Room: Type: REG CLI Attending Dr: Andrea Govea II, MD Copies [...] Drew Duran M.D.04/01/2023 12:39 PM Dictation Location: [place] [address] Transcribed By: [facility] 04/01/23 1239 Dictated By: Drew Duran II, MD 04/01/23 1237 Signed By: 04/01/23 1239 Normal [facility] XR pelvis 1-2Von 04-01-2023 XR pelvis 1-2V [facility] [place] [address] XRay Report Signed Patient: Al Kuo MR#: [id number] : 1945 Acct:[id number] Age/Sex: 77 / M ADM Date: 04/01/23 Loc: [facility] Room: Type: REG CLI Attending Dr: Andrea Govea II, MD Copies [...] Drew Duran M.D.04/01/2023 12:35 PM Dictation Location: [facility] Transcribed By: GIULIA 04/01/23 123 Dictated By: Drew Duran II, MD 04/01/231232 Signed By: 04/01/23 123 [facility] Falls Screening (Age 18+)on 02-03-2023 Fall risk assessment a) No falls within the last year [facility] a 320 DO Work Phone: Office Visit [...] Metabolic Panel; Status:Active - Retrospective Authorization; Requested for:03Feb2023; Complete Blood Count; Status:Active - Retrospective Authorization; Requested for:03Feb2023; SocHx: Former smoker Tobacco Use Screening; Status:Complete; Done: 03Feb2023 Patient Instructions Please bring all medicines, vitamins, [...] extremity Doppler done in the past at [place] and it was negative for DVT and [...] History of Colectomy partial History of Colonoscopy [id number] History of Hernia repair History of Knee [...] Vital Signs Recorded: 03Feb2023 03:51PM Heart Rate78 [id number], RUE, Sitting [id number], RUE, Sitting Height5 ft 10 in (more content not included)... Normal [employer] [facility] CARDIAC STRESS/REST INJE CTIONon 09-08-2022 [facility] CARDIAC STRESS/REST INJECTION Patient Name: AL KUO STUDY: MYOCARDIAL PERFUSION STRESS TEST WITH LEXISCAN Performing facility: [facility] [place], [address] [place] [address], [address], [place] [id number] [facility] Provider: Jammie Velasquez MD PCP: Dr. Long Dodd Supervising provider: Ericka Collins RN, HYDROELECTRIC STATION OPERATOR CHIEF INDICATION: Dyspnea HISTORY: Gender: M; Age: 77 y/o ; Height: 0 cm; Weight: 0 kg. HTN; Arrhythmias; Edema Quit smoking 22 years ago. COMPARISON: No comparison. ACCESSION NUMBER(S): [id number]; [id number]; [id number] ORDERING CLINICIAN: MOURHAF TRABOULSSI TECHNIQUE: TWO DAY protocol. Stress injection: Date:09-08-22, [...] Electronically signed by: CHENG LUND MD Normal [facility] No Panel Informationon 09-08 Normal -[facility] Work Phone: Office Visit (Cardiology)on [...] requested at the time of your visit. [place] Stress for dyspnea Follow up in 6 [...] extremity Doppler done in the past at [place] and it was negative for DVT and [...] History of Colectomy partial History of Colonoscopy [id number] History of Hernia repair History of Knee [...] soda occasionally Former smoker (V15.82) (Z87.891) quit 07/07 PPD (more content not included)... Normal Chronicity Tobacco Screening.on 023 Adult depression screening assessment No [facility] [employer] viola 250 DO Work Phone: Fall risk assessment a) No falls within the last year [facility] [employer] viola 250 DO Work Phone: Tobacco use status [facility] b) No -[facility] viola 250 DO Work Phone: Creatinine and Glomerular fi ltration rate.predicted panel (S/P/Bld)Ordered By: Tommy Bah on 04-27-2022 Creatinine [Mass/Vol] 1.05 mg/dL 0.64-1.27 [facility] Estimated glomerular filtrat ion rate (GFR) non- AmericanOrdered By: Tomym Bah on 04-27-2022 GFR/1.73 sq M.predicted among non-blacks MDRD (S/P/Bld) [Vol rate/Area] > 60 mL/Min [facility] No Panel InformationOrdered By: Tommy Bah on 04-27-2022 Estimated GFR () > 60 mL/Min [facility] Comment on above: GFR estimated refere nce range: According to KDOQI guidelines, <60 ml/min/1.73m2 is sufficient to diagnose a patient with chronic kidney disease. Pharmacy Creatinine Clearance (Chem 80.00 [facility] Serum or plasma anion gap de terminationOrdered By: Tommy Bah on 04-27-2022 Anion gap [Moles/Vol] 10.1 mmol/L 6.0-15.0 [facility] Serum or plasma calcium rolando urement (mass/volume)Ordered By: Tommy Bah on 04-27-2022 Calcium [Mass/Vol] 8.7 mg/dL 8.2-10.2 [facility] Serum or plasma chloride miya surement (moles/volume)Ordered By: Tommy Bah on 04-27-2022 Chloride [Moles/Vol] 100 mmol/L 95-114 [facility] Serum or plasma glucose rolando urement (mass/volume)Ordered By: Tommy Bah on 04-27-2022 Glucose [Mass/Vol] 135 mg/dL 70-100 [facility] Comment on above: ADA recommended refe rence rangeRandom Glucose Reference Range is dependent on time and content of last meal. Glucose of more than 200 mg/dL in a nonstressed, ambulatory subject supports the diagnosis of Diabetes Mellitus. Serum or plasma potassium me asurement (moles/volume)Ordered By: Tommy Bah on 04-27-2022 Potassium [Moles/Vol] 3.5 mmol/L 3.5-5.1 [facility] Serum or plasma sodium measu rement (moles/volume)Ordered By: Tommy Bah on 04-27-2022 Sodium [Moles/Vol] 136 mmol/L 136-146 [facility] Serum or plasma total carbon dioxide measurement (moles/volume)Ordered By: Tommy Bah on 04-27-2022 CO2 [Moles/Vol] 29.4 mmol/L 22.0-30.0 [facility] Serum or plasma urea nitroge n measurement (mass/volume)Ordered By: Tommy Bah on 04-27-2022 Urea nitrogen [Mass/Vol] 21 mg/dL 03-28 [facility] Basophils Auto (Bld) [#/Vol] Ordered By: Rain Ramos on 04-21-2022 Basophils (Bld) [#/Vol] 0.0 10*3/uL 0.0-0.2 [facility] Basophils/100 WBC Auto (Bld) Ordered By: Rain Ramos on 04-21-2022 Basophils/100 WBC (Bld) 0.3 % . [facility] Eosinophils Auto (Bld) [#/Vo l]Ordered By: Rain Ramos on 04-21-2022 Eosinophils (Bld) [#/Vol] 0.3 10*3/uL 0.0-0.45 [facility] Eosinophils/100 WBC Auto (Bl d)Ordered By: Rain Ramos on 04-21-2022 Eosinophils/100 WBC (Bld) 2.4 % . [facility] Erythrocyte distribution wid th Auto (RBC) [Ratio]Ordered By: Rain Ramos on 04-21-2022 Erythrocyte distribution width (RBC) [Ratio] 14.2 % 12.0-14.8 [facility] Hematocrit Auto (Bld) [Volum e fraction]Ordered By: Rain Ramos on 04-21-2022 Hematocrit (Bld) [Volume fraction] 27.0 % 38.8-50.0 [facility] Hemoglobin [Mass/volume] in BloodOrdered By: Rain Ramos on 04-21-2022 Hemoglobin (Bld) [Mass/Vol] 9.3 g/dL 13.0-17.0 [facility] Laboratory - Hematology and Cell countsOrdered By: Rain Ramos on 04-21-2022 Nucleated RBC/100 WBC (Bld) [Ratio] 0.1 % 0-0.5 [facility] Leukocytes [#/volume] in Blo od by Automated countOrdered By: Rain Ramos on 04-21-2022 WBC (Bld) [#/Vol] 10.5 10*3/uL 4.5-11.0 [facility] Lymphocytes Auto (Bld) [#/Vo l]Ordered By: Rain Ramos on 04-21-2022 Lymphocytes (Bld) [#/Vol] 0.6 10*3/uL 1.00-4.8 [facility] Lymphocytes/100 WBC Auto (Bl d)Ordered By: Rain Ramos on 04-21-2022 Lymphocytes/100 WBC (Bld) 5.6 % . [facility] MCH Auto (RBC) [Entitic mass ]Ordered By: Rain Ramos on 04-21-2022 MCH (RBC) [Entitic mass] 36.0 pg 27.5-35.2 [facility] MCHC Auto (RBC) [Mass/Vol]Or dered By: Rain Ramos on 04-21-2022 MCHC (RBC) [Mass/Vol] 34.6 g/dL 32.5-35.6 [facility] MCV Auto (RBC) [Entitic vol] Ordered By: Rain Ramos on 04-21-2022 MCV (RBC) [Entitic vol] 104.0 fL 83.5-101 [facility] Monocytes Auto (Bld) [#/Vol] Ordered By: Rain Ramos on 04-21-2022 Monocytes (Bld) [#/Vol] 0.9 10*3/uL 0.0-0.8 [facility] Monocytes/100 WBC Auto (Bld) Ordered By: Rain Ramos on 04-21-2022 Monocytes/100 WBC (Bld) 8.5 % . [facility] Neutrophils Auto (Bld) [#/Vo l]Ordered By: Rain Ramos on 04-21-2022 Neutrophils (Bld) [#/Vol] 8.7 10*3/uL 1.8-7.7 [facility] Neutrophils/100 WBC Auto (Bl d)Ordered By: Rain Ramos on 04-21-2022 Neutrophils/100 WBC (Bld) 83.2 % . [facility] Platelet mean volume Auto (B ld) [Entitic vol]Ordered By: Rain Ramos on 04-21-2022 Platelet mean volume (Bld) [Entitic vol] 7.9 fL 6.6-10.1 [facility] Platelets Auto (Bld) [#/Vol] Ordered By: Rain Ramos on 04-21-2022 Platelets (Bld) [#/Vol] 180 10*3/uL 150-450 [facility] RBC Auto (Bld) [#/Vol]Ordere d By: Rain Ramos on 04-21-2022 RBC (Bld) [#/Vol] 2.59 10*6/uL 3.90-5.60 [facility] CT biopsyOrdered By: Rain naidu on 04-18-2022 Transferrin [Mass/Vol] 144 mg/dL 180-380 [facility] Folate [Mass/volume] in Seru m or PlasmaOrdered By: Rain Ramos on 04-18-2022 Folate [Mass/Vol] 20.3 ng/mL >5.9 [facility] Comment on above: Folate reference ran ge: >5.9 ng/mlThe WHO technical consultation on folate and vitamin [id number] has determined that folate concentrations lessthan 4 ng/ml are considered deficient. Iron [Mass/volume] in Serum or PlasmaOrdered By: Rain Ramso on 04-18-2022 Iron [Mass/Vol] 23 ug/dL 40-160 [facility] Iron binding capacity [Mass/ volume] in Serum or PlasmaOrdered By: Rain Ramos on 04-18-2022 Iron binding capacity [Mass/Vol] 202 ug/dL 255-450 [facility] Iron saturation [Mass Fracti on] in Serum or PlasmaOrdered By: Rain Ramos on 04-18-2022 Iron saturation [Mass fraction] 11.0 % 20-50 [facility] Laboratory - Chemistry and C hemistry - challengeOrdered By: Rain Ramos on 04-18-2022 Cobalamin (Vitamin B12) [Mass/Vol] 1866 pg/mL 180-914 [facility] TSH DL <= 0.005 mIU/L QnOrde red By: Rain Ramos on 04-18-2022 TSH Qn 1.28 m[IU]/L 0.45-5.33 [facility] Thyroxine (T4) free [Mass/vo lume] in Serum or PlasmaOrdered By: Rain Ramos on 04-18-2022 Free T4 [Mass/Vol] 1.06 ng/dL 0.61-1.12 [facility] Bilirubin Test strip Ql (U)O rdered By: Lillian Harris on 04-17-2022 Bilirubin Ql (U) Negative Negative [facility] Color Auto (U)Ordered By: Wu Harris on 04-17-2022 Color (U) Yellow Yellow [facility] Ketones Auto test strip (U) [Mass/Vol]Ordered By: Lillian Harris on 04-17-2022 Ketones (U) [Mass/Vol] Negative [facility] Nit[facility] Test strip Ql (U)Ord ered By: Lillian Harris on 04-17-2022 Nitrite Ql (U) Negative Negative [facility] Protein Auto test strip (U) [Mass/Vol]Ordered By: Lillian Harris on 04-17-2022 Protein (U) [Mass/Vol] Negative Negative Fi [facility] Specific gravity Auto test s trip (U) [Rel density]Ordered By: Lillian Harris on 04-17-2022 Specific gravity (U) [Rel density] 1.020 1.001-1.03 0 [facility] Urine clarity by refractomet ry automatedOrdered By: Lillian Harris on 04-17-2022 Clarity Refractometry automated (U) Clear Clear [facility] Urine glucose measurement by automated test strip (mass/volume)Ordered By: Lillian Harris on 04-17-2022 Glucose Auto test strip (U) [Mass/Vol] Normal mg/dL Normal [facility] Urine hemoglobin detection b y automated test stripOrdered By: Lillian Harris on 04-17-2022 Hemoglobin Auto test strip Ql (U) Negative Negative [facility] Urine leukocyte esterase det ection by automated test stripOrdered By: Lillian Harris on 04-17-2022 Leukocyte esterase Auto test strip Ql (U) Negative Negative [facility] Urobilinogen Auto test strip (U) [Mass/Vol]Ordered By: Lillian Harris on 04-17-2022 Urobilinogen (U) [Mass/Vol] Normal mg/dL Normal [facility] pH Auto test strip (U)Ordere d By: Lillian Harris on 04-17-2022 pH (U) 5.5 [pH] 5.0-9.0 [facility] Albumin [Mass/volume] in Ser um or PlasmaOrdered By: Lillian Harirs on 04-16-2022 Albumin [Mass/Vol] 2.6 g/dL 3.2-5.5 [facility] Globulin Calc (S) [Mass/Vol] Ordered By: Lillian Harris on 04-16-2022 Globulin (S) [Mass/Vol] 2.4 g/dL [facility] Protein [Mass/volume] in Ser um or PlasmaOrdered By: Lillian Harris on 04-16-2022 Protein [Mass/Vol] 5.0 g/dL 6.1-7.9 [facility] Serum or plasma alanine carson otransferase measurement without P-5'-P (enzymatic activiOrdered By: Lillian Harris on 04-16-2022 ALT No additional P-5'-P [Catalytic activity/Vol] 7 U/L 10 [facility] Serum or plasma albumin/glob ulin mass ratioOrdered By: Lillian Harris on 04-16-2022 Albumin/Globulin [Mass ratio] 1.1 {ratio} [facility] Serum or plasma alkaline pablito sphatase measurement (enzymatic activity/volume)Ordered By: Lillian Harris on 04-16-2022 ALP [Catalytic activity/Vol] 38 U/L 32-92 [facility] Serum or plasma aspartate am inotransferase measurement (enzymatic activity/volume)Ordered By: Lillian Harris on 04-16-2022 AST [Catalytic activity/Vol] 13 U/L 10 [facility] Serum or plasma prealbumin m easurement (mass/volume)Ordered By: Lillian Harris on 04-16-2022 Prealbumin [Mass/Vol] 15.3 mg/dL 18.0-38.0 [facility] Serum or plasma total biliru bin measurement (mass/volume)Ordered By: Lillian Harris on 04-16-2022 Bilirubin [Mass/Vol] 0.8 mg/dL 0.3-1.2 [facility] Basophils Auto (Bld) [#/Vol] Ordered By: Andrea Govea on 04-15-2022 Basophils (Bld) [#/Vol] 0.0 10*3/uL 0.0-0.2 [facility] Basophils/100 WBC Auto (Bld) Ordered By: Andrea Govea on 04-15-2022 Basophils/100 WBC (Bld) 0.1 % . [facility] Blood hemoglobin measurement (mass/volume)Ordered By: Andrea Govea on 04-15-2022 Hemoglobin (Bld) [Mass/Vol] 10.4 g/dL 13.0-17.0 [facility] Blood leukocytes automated c ount (number/volume)Ordered By: Andrea Govea on 04-15-2022 WBC (Bld) [#/Vol] 12.1 10*3/uL 4.5-11.0 [facility] COVID-19 Positive/NegativeOr dered By: Andrea Govea on 04-15-2022 SARS-CoV-2 (COVID-19) N gene MALIHA+probe Ql (Resp) Negative Negative [facility] Comment on above: Testing for SARS-CoV -2 by RT-PCRThis test was developed and its performance characteristics determined by [employer] ([employer]) and validated at the [facility]. This test has not been FDA cleared [...] on 04-15-2022 Creatinine [Mass/Vol] 1.20 mg/dL 0.64-1.27 [facility] Eosinophils Auto (Bld) [#/Vo l]Ordered By: Andrea Govea on 04-15-2022 Eosinophils (Bld) [#/Vol] 0.0 10*3/uL 0.0-0.45 [facility] Eosinophils/100 WBC Auto (Bl d)Ordered By: Andrea Govea on 04-15-2022 Eosinophils/100 WBC (Bld) 0.0 % . [facility] Erythrocyte distribution wid th Auto (RBC) [Ratio]Ordered By: Andrea Govea on 04-15-2022 Erythrocyte distribution width (RBC) [Ratio] 14.0 % 12.0-14.8 [facility] Estimated glomerular filtrat ion rate (GFR) non- AmericanOrdered By: Andrea Govea on 04-15-2022 GFR/1.73 sq M.predicted among non-blacks MDRD (S/P/Bld) [Vol rate/Area] 59 mL/Min [facility] Folate [Mass/volume] in Seru m or PlasmaOrdered By: Tonya Mcgregor on 04-15-2022 Folate [Mass/Vol] 5.0 ng/mL >5.9 [facility] Comment on above: Folate reference ran ge: >5.9 ng/mlThe WHO technical consultation on folate and vitamin [id number] has determined that folate concentrations lessthan 4 ng/ml are considered deficient. Hematocrit Auto (Bld) [Volum e fraction]Ordered By: Andrea Govea on 04-15-2022 Hematocrit (Bld) [Volume fraction] 30.2 % 38.8-50.0 [facility] - Chemistry and C hemistry - challengeOrdered By: Tonya Mcgregor on 04-15-2022 Cobalamin (Vitamin B12) [Mass/Vol] 238 pg/mL 180-914 [facility] - Hematology and Cell countsOrdered By: Andrea Govea on 04-15-2022 Nucleated RBC/100 WBC (Bld) [Ratio] 0.0 % 0-0.5 [facility] Lymphocytes Auto (Bld) [#/Vo l]Ordered By: Andrea Govea on 04-15-2022 Lymphocytes (Bld) [#/Vol] 0.4 10*3/uL 1.00-4.8 [facility] Lymphocytes/100 WBC Auto (Bl d)Ordered By: Andrea Govea on 04-15-2022 Lymphocytes/100 WBC (Bld) 3.5 % . [facility] MCH Auto (RBC) [Entitic mass ]Ordered By: Andrea Govea on 04-15-2022 MCH (RBC) [Entitic mass] 35.5 pg 27.5-35.2 [facility] MCHC Auto (RBC) [Mass/Vol]Or dered By: Andrea Govea on 04-15-2022 MCHC (RBC) [Mass/Vol] 34.5 g/dL 32.5-35.6 [facility] MCV Auto (RBC) [Entitic vol] Ordered By: Andrea Govea on 04-15-2022 MCV (RBC) [Entitic vol] 103.0 fL 83.5-101 [facility] Monocytes Auto (Bld) [#/Vol] Ordered By: Andrea Govea on 04-15-2022 Monocytes (Bld) [#/Vol] 0.6 10*3/uL 0.0-0.8 [facility] Monocytes/100 WBC Auto (Bld) Ordered By: Andrea Govea on 04-15-2022 Monocytes/100 WBC (Bld) 4.8 % . [facility] Neutrophils Auto (Bld) [#/Vo l]Ordered By: Andrea Govea on 04-15-2022 Neutrophils (Bld) [#/Vol] 11.1 10*3/uL 1.8-7.7 [facility] Neutrophils/100 WBC Auto (Bl d)Ordered By: Andrea Govea on 04-15-2022 Neutrophils/100 WBC (Bld) 91.6 % . [facility] No Panel InformationOrdered By: Andrea Govea on 04-15-2022 Estimated GFR () > 60 mL/Min [facility] Comment on above: GFR estimated refere nce range: According to KDOQI guidelines, <60 ml/min/1.73m2 is sufficient to diagnose a patient with chronic kidney disease. Pharmacy Creatinine Clearance (Chem 70.06 [facility] Platelet mean volume Auto (B ld) [Entitic vol]Ordered By: Andrea Govea on 04-15-2022 Platelet mean volume (Bld) [Entitic vol] 7.6 fL 6.6-10.1 [facility] Platelets Auto (Bld) [#/Vol] Ordered By: Andrea Govea on 04-15-2022 Platelets (Bld) [#/Vol] 128 10*3/uL 150-450 [facility] RBC Auto (Bld) [#/Vol]Ordere d By: Andrea Govea on 04-15-2022 RBC (Bld) [#/Vol] 2.93 10*6/uL 3.90-5.60 [facility] Serum or plasma anion gap de terminationOrdered By: Andrea Govea on 04-15-2022 Anion gap [Moles/Vol] 13.9 mmol/L 6.0-15.0 [facility] Serum or plasma calcium rolando urement (mass/volume)Ordered By: Andrea Govea on 04-15-2022 Calcium [Mass/Vol] 8.9 mg/dL 8.2-10.2 [facility] Serum or plasma chloride miya surement (moles/volume)Ordered By: Andrea Govea on 04-15-2022 Chloride [Moles/Vol] 94 mmol/L 95-114 [facility] Serum or plasma glucose rolando urement (mass/volume)Ordered By: Andrea Govea on 04-15-2022 Glucose [Mass/Vol] 192 mg/dL 70-100 [facility] Comment on above: ADA recommended refe rence rangeRandom Glucose Reference Range is dependent on time and content of last meal. Glucose of more than 200 mg/dL in a nonstressed, ambulatory subject supports the diagnosis of Diabetes Mellitus. Serum or plasma potassium me asurement (moles/volume)Ordered By: Andrea Govea on 04-15-2022 Potassium [Moles/Vol] 4.6 mmol/L 3.5-5.1 [facility] Serum or plasma sodium measu rement (moles/volume)Ordered By: Andrea Govea on 04-15-2022 Sodium [Moles/Vol] 128 mmol/L 136-146 [facility] Serum or plasma total carbon dioxide measurement (moles/volume)Ordered By: Andrea Govea on 04-15-2022 CO2 [Moles/Vol] 24.7 mmol/L 22.0-30.0 [facility] Serum or plasma urea nitroge n measurement (mass/volume)Ordered By: Andrea Govea on 04-15-2022 Urea nitrogen [Mass/Vol] 21 mg/dL 9-23 [facility] TSH DL <= 0.005 mIU/L QnOrde red By: Tonya Mcgregor on 04-15-2022 TSH Qn 0.42 m[IU]/L 0.45-5.33 [facility] COVID-19 Positive/NegativeOr dered By: Andrea Govea on 04-10-2022 SARS-CoV-2 (COVID-19) N gene MALIHA+probe Ql (Resp) Negative Negative [facility] Comment on above: Testing for SARS-CoV -2 by RT-PCRThis test was developed and its performance characteristics determined by [employer] and validated at the [facility]. This test has not been FDA cleared [...] Anion gap [Moles/Vol] 12.3 mmol/L Normal [facility] Comment on above: Performed By: #### B MP #### [facility] [address] [place] [address] Dr. Jonelle Lechuga Calcium [Mass/Vol] 9.0 mg/dL Normal 8.5-10.1 [facility] Comment on above: Performed By: #### B MP #### [facility] [address] [place] [address] Dr. Jonelle Lechuga Chloride [Moles/Vol] 95 mmol/L Critically low 98-107 [facility] Comment on above: Performed By: #### B MP #### [facility] [address] [place] [address] Dr. Jonelle Lechuga CO2 [Moles/Vol] 27.5 mmol/L Normal 21.0-32.0 [facility] Comment on above: Performed By: #### B MP #### [facility] [address] [place] [address] Dr. Jonelle Lechuga Creatinine [Mass/Vol] 1.58 mg/dL Critically high 0.70-1.30 [facility] Comment on above: Performed By: #### B MP #### [facility] [address] [place] [address] Dr. Jonelle Lechuga EGFR-AF MARTINIQUAIS 52 mL/min/1.73m2 Critically low >=60 [facility] Comment on above: Performed By: #### B MP #### [facility] [address] [address] [address] Jonelle Lechuga EGFR-NON AF MARTINIQUAIS 43 mL/min/1.73m2 Critically low >=60 [facility] Comment on above: Performed By: #### B MP #### [facility] [address] [address] [address] Jonelle Lechuga Glucose [Mass/Vol] 140 mg/dL Critically high 74-106 [facility] Comment on above: Performed By: #### B MP #### [facility] [address] [address] [address] Jonelle Lechuga Potassium [Moles/Vol] 4.8 mmol/L Normal 3.5-5.1 [facility] Comment on above: Performed By: #### B MP #### [facility] [address] [address] [address] Jonelle Lechuga Sodium [Moles/Vol] 130 mmol/L Critically low 136-145 [facility] Comment on above: Performed By: #### B MP #### [facility] [address] [address] [address] Jonelle Lechuga Urea nitrogen [Mass/Vol] 28.0 mg/dL Critically high 7.0-18.0 [facility] Comment on above: Performed By: #### B MP #### [facility] [address] [address] [address] Jonelle Lechuga Urea nitrogen/Creatinine [Mass ratio] 17.7 mg/mg Normal [facility] Comment on above: Performed By: #### B MP #### [facility] [address] [address] [address] Jonelle Lechuga Automated erythrocytes count in urine sediment (number/area)Ordered By: Andrea Govea on 03-31-2022 RBC Auto (Urine sed) [#/Area] 0-1 [HPF] 0-4 [facility] Automated leukocytes count i n urine sediment (number/area)Ordered By: Andrea Govea on 03-31-2022 WBC Auto (Urine sed) [#/Area] 0-1 [HPF] 0-4 [facility] Basophils Auto (Bld) [#/Vol] Ordered By: Andrea Govea on 03-31-2022 Basophils (Bld) [#/Vol] 0.0 10*3/uL 0.0-0.2 [facility] Basophils/100 WBC Auto (Bld) Ordered By: Andrea Govea on 03-31-2022 Basophils/100 WBC (Bld) 0.2 % . [facility] Bilirubin Test strip Ql (U)O rdered By: Andrea Govea on 03-31-2022 Bilirubin Ql (U) Negative Negative [facility] Blood hemoglobin measurement (mass/volume)Ordered By: Andrea Govea on 03-31-2022 Hemoglobin (Bld) [Mass/Vol] 11.7 g/dL 13.0-17.0 [facility] Blood leukocytes automated c ount (number/volume)Ordered By: Andrea Govea on 03-31-2022 WBC (Bld) [#/Vol] 9.1 10*3/uL 4.5-11.[address] [facility] [address] biopsyOrdered By: Andrea Govea on 03-31-2022 CT biopsy 261 umol/L 0-285 [facility] Comment on above: Published reference interval for apparently healthysubjects between age 20 and 60 is 205 - 285 umol/L and in apoorly controlled diabetic population is 228 - 563 umol/Lwith a mean of 396 umol/L.Performed at: [facility] [address] [id number] Director: Mango Cantu PhD, Phone: [phone] Color Auto (U)Ordered By: Silvina Govea on 03-31-2022 Color (U) Dark yellow Yellow [facility] Creatinine and Glomerular fi ltration rate.predicted panel (S/P/Bld)Ordered By: Andrea Govea on 03-31-2022 Creatinine [Mass/Vol] 1.80 mg/dL 0.64-1.27 [facility] Eosinophils Auto (Bld) [#/Vo l]Ordered By: Andrea Govea on 09-26-2022 Eosinophils (Bld) [#/Vol] 0.1 10*3/uL 0.0-0.45 [facility] Eosinophils/100 WBC Auto (Bl d)Ordered By: Andrea Govea on 03-31-2022 Eosinophils/100 WBC (Bld) 1.5 % . [facility] Erythrocyte distribution wid th Auto (RBC) [Ratio]Ordered By: Andrea Govea on 03-31-2022 Erythrocyte distribution width (RBC) [Ratio] 14.0 % 12.0-14.8 [facility] Estimated glomerular filtrat ion rate (GFR) non- AmericanOrdered By: Andrea Govea on 03-31-2022 GFR/1.73 sq M.predicted among non-blacks MDRD (S/P/Bld) [Vol rate/Area] 37 mL/Min [facility] Hematocrit Auto (Bld) [Volum e fraction]Ordered By: Andrea Govea on 03-31-2022 Hematocrit (Bld) [Volume fraction] 32.9 % 38.8-50.0 [facility] Ketones Auto test strip (U) [Mass/Vol]Ordered By: Andrea Govea on 03-31-2022 Ketones (U) [Mass/Vol] 1+ Negative [facility] - Hematology and Cell countsOrdered By: Andrea Govea on 03-31-2022 Nucleated RBC/100 WBC (Bld) [Ratio] 0.0 % 0-0.5 [facility] - UrinalysisOrder ed By: Andrea Govea on 03-31-2022 Hyaline casts LM Ql (Urine sed) 9-19 [LPF] 0-8 [facility] Lymphocytes Auto (Bld) [#/Vo l]Ordered By: Andrea Govea on 03-31-2022 Lymphocytes (Bld) [#/Vol] 0.8 10*3/uL 1.00-4.8 [facility] Lymphocytes/100 WBC Auto (Bl d)Ordered By: Andrea Govea on 03-31-2022 Lymphocytes/100 WBC (Bld) 8.7 % . [facility] MCH Auto (RBC) [Entitic mass ]Ordered By: Andrea Govea on 03-31-2022 MCH (RBC) [Entitic mass] 36.4 pg 27.5-35.2 [facility] MCHC Auto (RBC) [Mass/Vol]Or dered By: Andrea Govea on 03-31-2022 MCHC (RBC) [Mass/Vol] 35.6 g/dL 32.5-35.6 [facility] MCV Auto (RBC) [Entitic vol] Ordered By: Andrea Govea on 03-31-2022 MCV (RBC) [Entitic vol] 102.2 fL 83.5-101 [facility] Monocytes Auto (Bld) [#/Vol] Ordered By: Andrea Govea on 03-31-2022 Monocytes (Bld) [#/Vol] 0.7 10*3/uL 0.0-0.8 [facility] Monocytes/100 WBC Auto (Bld) Ordered By: Andrea Govea on 03-31-2022 Monocytes/100 WBC (Bld) 7.4 % . [facility] Neutrophils Auto (Bld) [#/Vo l]Ordered By: Andrea Govea on 03-31-2022 Neutrophils (Bld) [#/Vol] 7.5 10*3/uL 1.8-7.7 [facility] Neutrophils/100 WBC Auto (Bl d)Ordered By: Andrea Govea on 03-31-2022 Neutrophils/100 WBC (Bld) 82.2 % . [facility] Nitrite Test strip Ql (U)Ord ered By: Andrea Govea on 03-31-2022 Nitrite Ql (U) Negative Negative [facility] No Panel InformationOrdered By: Andrea Govea on 03-31-2022 Estimated GFR () 44 mL/Min [facility] Comment on above: GFR estimated refere nce range: According to KDOQI guidelines, <60 ml/min/1.73m2 is sufficient to diagnose a patient with chronic kidney disease. Pharmacy Creatinine Clearance (Chem N/A [facility] Platelet mean volume Auto (B ld) [Entitic vol]Ordered By: Andrea Govea on 03-31-2022 Platelet mean volume (Bld) [Entitic vol] 7.5 fL 6.6-10.1 [facility] Platelets Auto (Bld) [#/Vol] Ordered By: Andrea Govea on 03-31-2022 Platelets (Bld) [#/Vol] 155 10*3/uL 150-450 [facility] Protein Auto test strip (U) [Mass/Vol]Ordered By: Andrea Govea on 03-31-2022 Protein (U) [Mass/Vol] Negative Negative [facility] RBC Auto (Bld) [#/Vol]Ordere d By: Andrea Govea on 03-31-2022 RBC (Bld) [#/Vol] 3.22 10*6/uL 3.90-5.60 [facility] Serum or plasma anion gap de terminationOrdered By: Andrea Govea on 03-31-2022 Anion gap [Moles/Vol] 14.1 mmol/L 6.0-15.0 [facility] Serum or plasma calcium rolando urement (mass/volume)Ordered By: Andrea Govea on 03-31-2022 Calcium [Mass/Vol] 9.2 mg/dL 8.2-10.2 [facility] Serum or plasma chloride miya surement (moles/volume)Ordered By: Andrea Govea on 03-31-2022 Chloride [Moles/Vol] 93 mmol/L 95-114 [facility] Serum or plasma glucose rolando urement (mass/volume)Ordered By: Andrea Govea on 03-31-2022 Glucose [Mass/Vol] 121 mg/dL 70-100 [facility] Comment on above: ADA recommended refe rence rangeRandom Glucose Reference Range is dependent on time and content of last meal. Glucose of more than 200 mg/dL in a nonstressed, ambulatory subject supports the diagnosis of Diabetes Mellitus. Serum or plasma potassium me asurement (moles/volume)Ordered By: Andrea Govea on 03-31-2022 Potassium [Moles/Vol] 5.1 mmol/L 3.5-5.1 [facility] Serum or plasma sodium measu rement (moles/volume)Ordered By: Andrea Govea on 03-31-2022 Sodium [Moles/Vol] 129 mmol/L 136-146 [facility] Serum or plasma total carbon dioxide measurement (moles/volume)Ordered By: Andrea Govea on 03-31-2022 CO2 [Moles/Vol] 27.0 mmol/L 22.0-30.0 [facility] Serum or plasma urea nitroge n measurement (mass/volume)Ordered By: Andrea Govea on 03-31-2022 Urea nitrogen [Mass/Vol] 33 mg/dL 9-23 [facility] Specific gravity Auto test s trip (U) [Rel density]Ordered By: Andrea Govea on 03-31-2022 Specific gravity (U) [Rel density] 1.020 1.001-1.03 0 [facility] Squamous epithelial cells de tection in urine sediment by light microscopyOrdered By: Andrea Govea on 03-31-2022 Epithelial cells.squamous LM Ql (Urine sed) 0-1 [HPF] 0-2 [facility] Urine bacteria detection by automated methodOrdered By: Andrea Govea on 03-31-2022 Bacteria Auto Ql (U) None seen None Seen [facility] Urine clarity by refractomet ry automatedOrdered By: Andrea Govea on 03-31-2022 Clarity Refractometry automated (U) Clear Clear [facility] Urine glucose measurement by automated test strip (mass/volume)Ordered By: Andrea Govea on 03-31-2022 Glucose Auto test strip (U) [Mass/Vol] Normal mg/dL Normal [facility] Urine hemoglobin detection b y automated test stripOrdered By: Andrea Govea on 03-31-2022 Hemoglobin Auto test strip Ql (U) Negative Negative [facility] Urine leukocyte esterase det ection by automated test stripOrdered By: Andrea Govea on 03-31-2022 Leukocyte esterase Auto test strip Ql (U) 2+ Negative [facility] Urobilinogen Auto test strip (U) [Mass/Vol]Ordered By: Andrea Govea on 03-31-2022 Urobilinogen (U) [Mass/Vol] Normal mg/dL Normal [facility] pH Auto test strip (U)Ordere d By: Andrea Govea on 03-31-2022 pH (U) 5.5 [pH] 5.0-9.0 [facility] Albumin [Mass/volume] in Ser um or PlasmaOrdered By: Andrea Govea on 02-04-2022 Albumin [Mass/Vol] 3.6 g/dL 3.2-5.5 [facility] Blood hemoglobin measurement (mass/volume)Ordered By: Andrea Govea on 02-04-2022 Hemoglobin (Bld) [Mass/Vol] 12.6 g/dL 13.0-17.0 [facility] Cotinine [Mass/volume] in Se rum or PlasmaOrdered By: Andrea Govea on 02-04-2022 Cotinine [Mass/Vol] <1.0 ng/mL . [facility] Comment on above: This test was develo ped and its performance characteristics determined by [employer]. It has not been cleared or approved by the Food and Drug Administration. Cotinine levels greater than 20.0 are consistent with the use of tobacco or tobacco cessation products. Performed at: [facility] [employer] [id number] [employer] Vendor: Daniel Ann MD, Phone: [phone] This test was develo ped and its performance characteristicsdetermined by [employer]. It has not been cleared orapproved by the Food and Drug Administration.Cotinine levels greater than 20.0 are consistent with theuse of tobacco or tobacco cessation products.Performed at: [employer] [id number] Director: Daniel Ann MD, Phone: [phone] Glucose mean value [Mass/vol ume] in Blood Estimated from glycated hemoglobinOrdered By: Andrea Govea on 02-04-2022 Average glucose Estimated from glycated hemoglobin (Bld) [Mass/Vol] 114 mg/dL [facility] Hemoglobin A1c percentageOrd ered By: Andrea Govea on 02-04-2022 HbA1c (Bld) [Mass fraction] 5.6 % 4.3-5.6 [facility] Comment on above: Increased risk for d iabetes: 5.7 - 6.4 diabetes: >6.4 glycemic control for adults with diabetes: <7.0 Increased risk for d iabetes: 5.7 - 6.4diabetes: >6.4glycemic control for adults with diabetes: <7.0 Nicotine [Mass/volume] in Se rum or PlasmaOrdered By: Andrea Govea on 02-04-2022 Nicotine [Mass/Vol] <1.0 ng/mL . [facility] Comment on above: This test was develo ped and its performance characteristics determined by [facility]. It has not been cleared or approved by the Food and Drug Administration. Nicotine levels greater than 2.0 are consistent with the use of tobacco or tobacco cessation products. This test was develo ped and its performance characteristicsdetermined by [facility]. It has not been cleared orapproved by the Food and Drug Administration.Nicotine levels greater than 2.0 are consistent with theuse of tobacco or tobacco cessation products. No Panel InformationOrdered By: Andrea Govea on 02-04-2022 25-Hydroxy Vitamin D Total 28.5 ng/mL 30-100 [facility] Comment on above: VITAMIN D STATUS 25( [place])VITAMIN D RANGE (ng/mL) Deficient <20 Insufficient 20 to <30 Sufficient 30 to 100 Reference: Vicenta Hendricks, Marcelo MASCORRO, et al. Evaluation,treatment, and prevention of vitamin D deficiency; an Endocrine Society clinical practice guideline. JCEM. 2010; 96(7):1911-30. VITAMIN D STATUS 25( [place])VITAMIN D RANGE (ng/mL) Deficient <20 Insufficient 20 to <30Sufficient 30 to 100Reference: Vicenta Hendricks, Marcelo MASCORRO, et al. Evaluation,treatment, and prevention of vitamin D deficiency; an Endocrine Society clinical practice guideline. JCEM. 2010; 96(7):1911-30. Tobacco Screening.on 022 Fall risk assessment a) No falls within the last year [facility] [employer] viola 250 DO Work Phone: Tobacco use status [facility] b) No [facility] [employer] viola 250 DO Work Phone: Tobacco Screening.on 022 Adult depression screening assessment No [facility] [employer] viola 250 DO Work Phone: Fall risk assessment a) No falls within the last year [facility] [employer] viola 250 DO Work Phone: Tobacco use status [facility] b) No -[facility] [employer] viola 250 DO Work Phone: MRI KNEE RT WO CONon 022 MRI KNEE RT WO CON EXAM: MRI [...] Mild prepatellar bursitis. Electronically authenticated by: RAHEEM LEBLANCACH Date: 2021-07-22 12:52 Normal [facility]on 06-06 SARS-CoV-2 (COVID-19) RNA MALIHA+probe Ql (Unsp spec) Not detected Normal NOT DETECTED [facility] Comment on above: Result Comment: This test is not yet approved or cleared by the [place] FDA. When there are no FDA-approved or cleared tests available, and other criteria are met, FDA can make tests available under an emergency access mechanism called an Emergency Use Authorization (EUA). The EUA for this test is supported by the [employer] of Health and Human Service's (HHS's) declaration [...] SARS-CoV-2. Performed By: #### C VDTBH #### [facility] [address] [address] [address] Jonelle Lechuga INSULINon 06-13-2021 Insulin 4.2 uIU/mL Normal 2.6-24.9 [facility] Comment on above: Performed By: #### I NSULIN ####[facility] [address] [address]Dr. Jonelle Lechuga BNPon 06-12-2021 Natriuretic peptide B (Bld) [Mass/Vol] 731.0 pg/mL Normal <=1,800.0 [facility] Comment on above: Performed By: #### C MP, URIC, LIPID, BNP ####[facility] [id number] [address]Dr. Jonelle Lechuga CBC AUTO DIFFon 06-12-2021 BASO # 0.0 103/ul Normal 0.0-0.1 [facility] Comment on above: Performed By: #### C BC #### [facility] [address] [place] [address] Dr. Jonelle Lechuga Basophils/100 WBC (Bld) 0.3 % Normal 0.2-2.0 [facility] Comment on above: Performed By: #### C BC #### [facility] [address] [place] [address] Dr. Jonelle Lechuga EO # 0.2 103/ul Normal 0.0-0.7 [facility] Comment on above: Performed By: #### C BC #### [facility] [address] [place] [address] Dr. Jonelle Lechuga Eosinophils/100 WBC (Bld) 3.5 % Normal 0.9-7.0 [facility] Comment on above: Performed By: #### C BC #### [facility] [address] [place] [address] Dr. Jonelle Lechuga Erythrocyte distribution width (RBC) [Ratio] 13.9 % Normal 11.0-15.0 [facility] Comment on above: Performed By: #### C BC #### [facility] [address] [place] [address] Dr. Jonelle Lechuga Hematocrit (Bld) [Volume fraction] 36.9 % Critically low 42.0-54.0 [facility] Comment on above: Performed By: #### C BC #### [facility] [address] [place] [address] Dr. Jonelle Lechuga Hemoglobin (Bld) [Mass/Vol] 12.9 g/dL Critically low 14.0-18.0 [facility] Comment on above: Performed By: #### C BC #### [facility] [address] [place] [address] Dr. Jonelle Lechuga IG # 0.01 10e3/ul Normal 0.00-0.03 [facility] Comment on above: Performed By: #### C BC #### [facility] [address] [place] [address] Dr. Jonelle Lechuga IG % 0.2 % Normal 0.0-0.5 [facility] Comment on above: Performed By: #### C BC #### [facility] [address] [place] [address] Dr. Jonelle Lechuga LYMPH # 0.7 103/ul Critically low 1.2-3.8 [facility] Comment on above: Performed By: #### C BC #### [facility] [address] [place] [address] Dr. Jonelle Lechuga Lymphocytes/100 WBC (Bld) 11.1 % Critically low 20.5-60.0 [facility] Comment on above: Performed By: #### C BC #### [facility] [address] [place] [address] Dr. Jonelle Lechuga MANUAL DIFF REQ NO Normal [facility] Comment on above: Performed By: #### C BC #### [facility] [address] [place] [address] Dr. Jonelle Lechuga MCH (RBC) [Entitic mass] 35.0 pg Critically high 25.9-34.0 [facility] Comment on above: Performed By: #### C BC #### [facility] [address] [place] [address] Dr. Jonelle Lechuga MCHC (RBC) [Mass/Vol] 35.0 g/dL Normal 29.9-35.2 [facility] Comment on above: Performed By: #### C BC #### [facility] [address] [place] [address] Dr. Jonelle Lechuga MCV (RBC) [Entitic vol] 100.0 fL Critically high 80.0-94.0 [facility] Comment on above: Performed By: #### C BC #### [facility] [address] [place] [address] Dr. Jonelle Lechuga MONO # 0.5 103/ul Normal 0.3-0.8 [facility] Comment on above: Performed By: #### C BC #### [facility] [address] [place] [address] Dr. Jonelle Lechuga Monocytes/100 WBC (Bld) 7.9 % Normal 1.7-12.0 [facility] Comment on above: Performed By: #### C BC #### [facility] [address] [address] [address] Jonelle Lechuga NEUT # 5.1 103/ul Normal 1.4-6.5 [facility] Comment on above: Performed By: #### C BC #### [facility] [address] [address] [address] Jonelle Lechuga Neutrophils/100 WBC (Bld) 77.0 % Critically high 43.0-75.0 [facility] Comment on above: Performed By: #### C BC #### [facility] [address] [address] [address] Jonelle Lechuga Platelet mean volume (Bld) [Entitic vol] 9.8 fL Normal 9.5-13.5 [facility] Comment on above: Performed By: #### C BC #### [facility] [address] [address] [address] Jonelle Lechuga PLT 111 103/ul Critically low 150-450 [facility] Comment on above: Performed By: #### C BC #### [facility] [address] [address] [address] Jonelle Lechuga RBC 3.69 106/ul Critically low 4.70-6.10 [facility] Comment on above: Performed By: #### C BC #### [facility] [address] [address] [address] Jonelle Lechuga WBC 6.6 103/ul Normal 4.0-11.0 [facility] Comment on above: Performed By: #### C BC #### [facility] [address] [address] [address] Jonelle Lechuga GLYCOHEMOGLOBIN A1Con 2020 ADA RECOMMENDATION ADA THERAPEUTIC TARG ET 6.0 - 7.0 ACTION SUGGESTED > 7.0 Normal [facility] Comment on above: Performed By: #### A 1C ####[facility] [id number] [address]Dr. Jonelle Lechuga Glucose [Mass/Vol] 91 mg/dL Normal [facility] Comment on above: Performed By: #### A 1C ####[facility] [id number] [place], [place] [address]YmDr. Jonelel Lechuga HbA1c (Bld) [Mass fraction] 4.8 % Normal <=6.0 [facility] Comment on above: Performed By: #### A 1C ####[facility] [address] [address]Dr. Jonelle Lechuga LIPID PROFILEon 06-12-2021 CHOL-HDL RATIO NORM SEE BELOW Normal [facility] Comment on above: Result Comment: 3.3 - 4.4 LOW RISK 4.4 - 7.1 AVERAGE RISK 7.1 - 11.0 MODERATE RISK >11.0 HIGH RISK Performed By: #### C MP, URIC, LIPID, BNP #### [facility] [address] [address] [address] Jonelle Lechuga Cholesterol [Mass/Vol] 190 mg/dL Normal <=200 [facility] Comment on above: Performed By: #### C MP, URIC, LIPID, BNP #### [facility] [address] [address] [address] Jonelle Lechuga Cholesterol in HDL [Mass/Vol] 48 mg/dL Normal [facility] Comment on above: Performed By: #### C MP, URIC, LIPID, BNP #### [facility] [address] [address] [address] Jonelle Lechuga Cholesterol in LDL [Mass/Vol] 127.8 mg/dL Normal [facility] Comment on above: Performed By: #### C MP, URIC, LIPID, BNP #### [facility] [address] [address] [address] Jonelle Lechuga Cholesterol.total/Chol esterol in HDL [Mass ratio] 4.0 {ratio} Normal [facility] Comment on above: Performed By: #### C MP, URIC, LIPID, BNP #### [facility] [address] [address] [address] Jonelle Lechuga HDL NORMAL > or = 60 mg/dl - LO W CARDIOVASCULAR RISK <40 mg/dl - HIGH CARDIOVASCULAR RISK Normal [facility] Comment on above: Performed By: #### C MP, URIC, LIPID, BNP #### [facility] [address] [place] [address] Dr. Jonelle Lechuga LDL CALC NORMAL SEE BELOW Normal [facility] Comment on above: Result Comment: <100 mg/dl OPTIMAL 100 - 129 mg/dl NEAR OR ABOVE OPTIMAL 130 - 159 mg/dl BORDERLINE HIGH 160 - 189 mg/dl HIGH >190 mg/dl VERY HIGH Performed By: #### C MP, URIC, LIPID, BNP #### [facility] [address] [address] [address] Jonelle Lechuga Triglyceride [Mass/Vol] 71 mg/dL Normal <=150 [facility] Comment on above: Performed By: #### C MP, URIC, LIPID, BNP #### [facility] [address] [place] [address] Dr. Jonelle Lechuga VLDL CALC 14.2 mg/dL Normal [facility] Comment on above: Performed By: #### C MP, URIC, LIPID, BNP #### [facility] [address] [place] [address] Dr. Jonelle Lechuga PROF 14(COMP METB)on 021 Albumin [Mass/Vol] 3.4 g/dL Critically low 3.5-5.0 [facility] Comment on above: Performed By: #### C MP, URIC, LIPID, BNP #### [facility] [address] [place] [address] Dr. Jonelle Lechuga Albumin/Globulin [Mass ratio] 1.0 {ratio} Normal [facility] Comment on above: Performed By: #### C MP, URIC, LIPID, BNP #### [facility] [address] [place] [address] Dr. Jonelle Lechuga ALP [Catalytic activity/Vol] 77 U/L Normal 38-126 [facility] Comment on above: Performed By: #### C MP, URIC, LIPID, BNP #### [facility] [address] [place] [address] Dr. Jonelle Lechuga ALT [Catalytic activity/Vol] 16 U/L Critically low 21-72 [facility] Comment on above: Performed By: #### C MP, URIC, LIPID, BNP #### [facility] [address] [place] [address] Dr. Jonelle Lechuga Anion gap [Moles/Vol] 10.2 mmol/L Normal [facility] Comment on above: Performed By: #### C MP, URIC, LIPID, BNP #### [facility] [address] [place] [address] Dr. Jonelle Lechuga AST [Catalytic activity/Vol] 14 U/L Critically low 17-59 [facility] Comment on above: Performed By: #### C MP, URIC, LIPID, BNP #### [facility] [address] [place] [address] Dr. Jonelle Lechuga Bilirubin [Mass/Vol] 1.3 mg/dL Normal 0.2-1.3 [facility] Comment on above: Performed By: #### C MP, URIC, LIPID, BNP #### [facility] [address] [place] [address] Dr. Jonelle Lechuga Calcium [Mass/Vol] 9.1 mg/dL Normal 8.4-10.2 [facility] Comment on above: Performed By: #### C MP, URIC, LIPID, BNP #### [facility] [address] [place] [address] Dr. Jonelle Lechuga Chloride [Moles/Vol] 100 mmol/L Normal 98-107 [facility] Comment on above: Performed By: #### C MP, URIC, LIPID, BNP #### [facility] [address] [place] [address] Dr. Jonelle Lechuga CO2 [Moles/Vol] 31.8 mmol/L Critically high 22.0-30.0 [facility] Comment on above: Performed By: #### C MP, URIC, LIPID, BNP #### [facility] [address] [place] [address] Dr. Jonelle Lechuga Creatinine [Mass/Vol] 1.33 mg/dL Critically high 0.66-1.25 [facility] Comment on above: Performed By: #### C MP, URIC, LIPID, BNP #### [facility] [address] [place] [address] Dr. Jonelle Lechuga EGFR-AF MARTINIQUAIS >60 Normal >=60 [facility] Comment on above: Performed By: #### C MP, URIC, LIPID, BNP #### [facility] [address] [address] [address] Jonelle Lechuga EGFR-NON AF MARTINIQUAIS 52 mL/min/1.73m2 Critically low >=60 [facility] Comment on above: Performed By: #### C MP, URIC, LIPID, BNP #### [facility] [address] [place] [address] Dr. Jonelle Lechuga Globulin (S) [Mass/Vol] 3.5 g/dL Normal [facility] Comment on above: Performed By: #### C MP, URIC, LIPID, BNP #### [facility] [address] [place] [address] Dr. Jonelle Lechuga Glucose [Mass/Vol] 114 mg/dL Critically high 74-106 T [facility] Comment on above: Performed By: #### C MP, URIC, LIPID, BNP #### [facility] [address] [place] [address] Dr. Jonelle Lechuga Potassium [Moles/Vol] 4.0 mmol/L Normal 3.4-5.0 [facility] Comment on above: Performed By: #### C MP, URIC, LIPID, BNP #### [facility] [address] [place] [address] Dr. Jonelle Lechuga Protein [Mass/Vol] 6.9 g/dL Normal 6.1-8.2 [facility] Comment on above: Performed By: #### C MP, URIC, LIPID, BNP #### [facility] [address] [place] [address] Dr. Jonelle Lechuga Sodium [Moles/Vol] 138 mmol/L Normal 137-145 [facility] Comment on above: Performed By: #### C MP, URIC, LIPID, BNP #### [facility] [address] [place] [address] Dr. Jonelle Lechuga Urea nitrogen [Mass/Vol] 23.0 mg/dL Critically high 9.0-20.0 [facility] Comment on above: Performed By: #### C MP, URIC, LIPID, BNP #### [facility] [address] [address] [address] Jonelle Lechuga Urea nitrogen/Creatinine [Mass ratio] 17.3 mg/mg Normal [facility] Comment on above: Performed By: #### C MP, URIC, LIPID, BNP #### [facility] [address] [place] [address] Dr. Jonelle Lechuga URIC ACID SERUMon 06-12-2021 Urate [Mass/Vol] 3.8 mg/dL Normal 3.5-8.5 [facility] Comment on above: Performed By: #### C MP, URIC, LIPID, BNP #### [facility] [address] [place] [address] Dr. Jonelle Lechuga VITAMIN D 25 OHon 06-12-2021 VIT D 25-OH 30.8 ng/mL Normal [facility] Comment on above: Performed By: #### V GARRET, PSASC #### [facility] [address] [place] [address] Dr. Jonelle Lechuga VIT D RANGES SEE BELOW Normal [facility] Comment on above: Result Comment: <20 ng/mL Vit D deficient 20 - <30 ng/mL Vit D insufficient 30 - 100 ng/mL Vit D sufficient >100 ng/mL Potential Toxicity Performed By: #### V GARRET, PSASC #### [facility] [address] [place] [address] Dr. Jonelle Lechuga Tobacco Screening.on 021 Fall risk assessment a) No falls within the last year [facility] 250 DO Work Phone: Tobacco use status [facility]PH[facility] b) No [facility] [address] DO Work Phone: Vital Signs Date Time Vital Sign Value Performing Clinician Facility 04-27-2024 14:31-0400 Body height 177.8 cm Jammie Velasquez MD Work Phone: [facility] 04-27-2024 14:31-0400 Body mass index (BMI) [Ratio] 42.21 kg/m2 Jammie Velasquez MD Work Phone: [facility] 04-27-2024 14:31-0400 Body weight 133.45 kg Jammie Velasquez MD Work Phone: [facility] 04-27-2024 14:31-0400 Diastolic blood pressure 60 mm[Hg] Jammie Velasquez MD Work Phone: [facility] 04-27-2024 14:31-0400 Heart rate 60 /min Jammie Velasquez MD Work Phone: [facility] 04-27-2024 14:31-0400 Systolic blood pressure 110 mm[Hg] Jammie Velasquez MD Work Phone: [facility] 06-23-2023 13:40-0500 Blood Pressure Location John BARTLTET [facility] [place] 06-23-2023 13:40-0500 Diastolic blood pressure 88 mm[Hg] John NILL [facility] [place] 06-23-2023 13:40-0500 Heart rate 72 /min John NILL [facility] [place] 06-23-2023 13:40-0500 Respiratory rate 16 /min John NILL [facility] [place] 06-23-2023 13:40-0500 Systolic blood pressure 126 mm[Hg] John NILL [facility] [place] 05-27-2023 05:00-0500 Body temperature 97.4 [degF] MD Real Dodd Work Phone: [facility] 05-27-2023 05:00-0500 Diastolic blood pressure 80 mm[Hg] MD Real Dodd Work Phone: [facility] 05-27-2023 05:00-0500 Heart rate 77 /min MD Real Dodd Work Phone: [facility] 05-27-2023 05:00-0500 Respiratory rate 20 /min MD Real Dodd Work Phone: [facility] 05-27-2023 05:00-0500 SaO2% (BldA) [Mass fraction] 95 % MD Real Dodd Work Phone: [facility] 05-27-2023 05:00-0500 Systolic blood pressure 129 mm[Hg] MD Real Dodd Work Phone: [facility] 05-26-2023 12:09-0500 Body height 177.8 cm MD Real Dodd Work Phone: [facility] 05-24-2023 06:00-0500 Body weight 131.3 kg MD Real Dodd Work Phone: [facility] 05-18-2023 11:26-0500 Body temperature 98 [degF] MD Real Dodd Work Phone: [facility] 05-18-2023 11:26-0500 Diastolic blood pressure 69 mm[Hg] MD Real Dodd Work Phone: [facility] 05-18-2023 11:26-0500 Heart rate 87 /min MD Real Dodd Work Phone: [facility] 05-18-2023 11:26-0500 Respiratory rate 12 /min MD Real Dodd Work Phone: [facility] 05-18-2023 11:26-0500 SaO2% (BldA) [Mass fraction] 96 % MD Real Dodd Work Phone: [facility] 05-18-2023 11:26-0500 Systolic blood pressure 116 mm[Hg] MD Real Dodd Work Phone: [facility] 05-18-2023 06:45-0500 Body weight 139.8 kg MD Real Dodd Work Phone: [facility] 05-13-2023 10:45-0500 Body height 175.26 cm MD Real Dodd Work Phone: [facility] 05-13-2023 00:00-0500 Inhaled oxygen flow rate 1 L/min Real Khaielham Work Phone: [facility] 05-12-2023 09:07-0500 Body mass index (BMI) [Ratio] 44.9 kg/m2 MD Noble Khaielham Work Phone: [facility] 02-03-2023 15:51-0400 Body height 177.8 cm Real Soliz Hoy Work Phone: [facility] 320 DO Work Phone: 02-03-2023 15:51-0400 Body mass index (BMI) [Ratio] 43.22 kg/m2 Real Martínez Hoy Work Phone: [facility] 320 DO Work Phone: 02-03-2023 15:51-0400 Body surface area Derived from formula 2.48 m2 Real Soliz Hoy Work Phone: [facility] 320 DO Work Phone: 02-03-2023 15:51-0400 Body weight 136.62 kg Real Soliz Hoy Work Phone: [facility] 320 DO Work Phone: 02-03-2023 15:51-0400 Diastolic blood pressure 74 mm[Hg] Real Soliz Hoy Work Phone: [facility] 320 DO Work Phone: 02-03-2023 15:51-0400 Heart rate 78 /min Real Martínez Hoy Work Phone: [facility] 320 DO Work Phone: 02-03-2023 15:51-0400 Systolic blood pressure 132 mm[Hg] Real Martínez Hoy Work Phone: [facility] 320 DO Work Phone: 09-08-2022 10:00-0500 55 1 Real M Hoy Work Phone: [facility] Work Phone: Comment on above: [id number] 08-05-2022 13:18-0500 Body height 177.8 cm Real M Hoy Work Phone: [facility] 250 DO Work Phone: 08-05-2022 13:18-0500 Body mass index (BMI) [Ratio] 42.62 kg/m2 Real M Hoy Work Phone: [facility] 250 DO Work Phone: 08-05-2022 13:18-0500 Body surface area Derived from formula 2.47 m2 Real M Hoy Work Phone: [facility] 250 DO Work Phone: 08-05-2022 13:18-0500 Body weight 134.72 kg Real M Hoy Work Phone: [facility] 250 DO Work Phone: 08-05-2022 13:18-0500 Diastolic blood pressure 78 mm[Hg] Real M Hoy Work Phone: [facility] 250 DO Work Phone: 08-05-2022 13:18-0500 Heart rate 81 /min Real M Hoy Work Phone: [facility] 250 DO Work Phone: 08-05-2022 13:18-0500 Systolic blood pressure 132 mm[Hg] Real M Hoy Work Phone: [facility] 250 DO Work Phone: 04-28-2022 05:00-0400 Body temperature 98.3 [degF] Real Hoy Work Phone: [facility] 04-28-2022 05:00-0400 Diastolic blood pressure 71 mm[Hg] MD Real Dodd Work Phone: [facility] 04-28-2022 05:00-0400 Heart rate 97 /min MD Real Dodd Work Phone: [facility] 04-28-2022 05:00-0400 Respiratory rate 16 /min MD Real Dodd Work Phone: [facility] 04-28-2022 05:00-0400 SaO2% (BldA) [Mass fraction] 96 % MD Real Dodd Work Phone: [facility] 04-28-2022 05:00-0400 Systolic blood pressure 130 mm[Hg] MD Real Dodd Work Phone: [facility] 04-27-2022 04:18-0400 Body weight 130.5 kg MD Real Dodd Work Phone: [facility] 04-23-2022 07:55-0400 Body height 177.8 cm MD Real Dodd Work Phone: [facility] 04-15-2022 16:00-0400 Inhaled oxygen flow rate 4 L/min MD Real Dodd Work Phone: [facility] 04-15-2022 15:39-0400 Body temperature 97.7 [degF] MD Real Dodd Work Phone: [facility] 04-15-2022 15:39-0400 Diastolic blood pressure 59 mm[Hg] MD Real Dodd Work Phone: [facility] 04-15-2022 15:39-0400 Heart rate 66 /min MD Real Dodd Work Phone: [facility] 04-15-2022 15:39-0400 Respiratory rate 16 /min MD Real Dodd Work Phone: [facility] 04-15-2022 15:39-0400 SaO2% (BldA) [Mass fraction] 97 % MD Real Hoy Work Phone: [facility] 04-15-2022 15:39-0400 Systolic blood pressure 109 mm[Hg] MD Real Dodd Work Phone: [facility] 04-15-2022 11:30-0400 Body height 172.72 cm MD Real Dodd Work Phone: [facility] 04-15-2022 06:00-0400 Body weight 137.6 kg MD Real Dodd Work Phone: [facility] 04-14-2022 11:31-0400 Body mass index (BMI) [Ratio] 45.6 kg/m2 MD Real Dodd Work Phone: [facility] 01-31-2022 10:15-0400 Body height 177.8 cm Andrea [place] [employer] Other [employer] Other 01-31-2022 10:15-0400 Body mass index (BMI) [Ratio] 42.47 kg/m2 Andrea [place] [employer] Other [employer] Other 01-31-2022 10:15-0400 Body weight 134.27 kg Andrea Jef[place] II Other [employer] Other 01-23-2022 13:10-0400 Body height 177.8 cm Real Martínez Hoy Work Phone: [facility] 250 DO Work Phone: 01-23-2022 13:10-0400 Body mass index (BMI) [Ratio] 42.76 kg/m2 Real M Hoy Work Phone: [facility] [employer] 250 DO Work Phone: 01-23-2022 13:10-0400 Body surface area Derived from formula 2.47 m2 Real M Hoy Work Phone: [facility] 250 DO Work Phone: 01-23-2022 13:10-0400 Body weight 135.17 kg Real M Hoy Work Phone: [facility] 250 DO Work Phone: 01-23-2022 13:10-0400 Diastolic blood pressure 68 mm[Hg] Real M Hoy Work Phone: [facility] 250 DO Work Phone: 01-23-2022 13:10-0400 Heart rate 72 /min Real M Hoy Work Phone: [facility] 250 DO Work Phone: 01-23-2022 13:10-0400 Systolic blood pressure 114 mm[Hg] Real M Hoy Work Phone: [facility] 250 DO Work Phone: 11-29-2021 11:30-0400 Body height 177.8 cm [employer] Other [facility] [employer] Other 11-29-2021 11:30-0400 Body mass index (BMI) [Ratio] 41.61 kg/m2 [employer] Other [facility] [employer] Other 11-29-2021 11:30-0400 Body weight 131.54 kg [employer] Other [facility] [employer] Other 09-17-2021 13:08-0400 Body height 177.8 cm Real M Hoy Work Phone: [facility] 250 DO Work Phone: 09-17-2021 13:08-0400 Body mass index (BMI) [Ratio] 43.05 kg/m2 Real M Hoy Work Phone: [facility] 250 DO Work Phone: 09-17-2021 13:08-0400 Body surface area Derived from formula 2.48 m2 Real M Hoy Work Phone: [facility] 250 DO Work Phone: 09-17-2021 13:08-0400 Body weight 136.08 kg Real M Hoy Work Phone: [facility] 250 DO Work Phone: 09-17-2021 13:08-0400 Diastolic blood pressure 84 mm[Hg] Real M Hoy Work Phone: [facility] 250 DO Work Phone: 09-17-2021 13:08-0400 Heart rate 66 /min Real M Hoy Work Phone: [facility] 250 DO Work Phone: 09-17-2021 13:08-0400 Systolic blood pressure 130 mm[Hg] Real M Hoy Work Phone: [facility] 250 DO Work Phone: 05-15-2021 11:06-0500 Body height 177.8 cm Real M Hoy Work Phone: [facility] 250 DO Work Phone: 05-15-2021 11:06-0500 Body mass index (BMI) [Ratio] 43.05 kg/m2 Real M Hoy Work Phone: [facility] 250 DO Work Phone: 05-15-2021 11:06-0500 Body surface area Derived from formula 2.48 m2 Real M Hoy Work Phone: [facility] 250 DO Work Phone: 05-15-2021 11:06-0500 Body weight 136.08 kg Real M Hoy Work Phone: [facility] 250 DO Work Phone: 05-15-2021 11:06-0500 Diastolic blood pressure 60 mm[Hg] Real Dodd Work Phone: [facility] 250 DO Work Phone: 05-15-2021 11:06-0500 Heart rate 50 /min Real Soliz Hoy Work Phone: [facility] 250 DO Work Phone: 05-15-2021 11:06-0500 Systolic blood pressure 127 mm[Hg] Real Soliz Hoy Work Phone: [facility] 250 DO Work Phone: Encounters Encounter Date Encounter Type Care Provider Facility Start: 04-27-2024 End: 04-27-2024 Office outpatient visit 25 minutes Jammie Velasquez MD Work Phone: [facility] Comment on above: Permanent atrial fib rillation (Multi) (Primary Dx); Essential hypertension; Sinus bradycardia; Pulmonary hypertension (Multi); LVH (left ventricular hypertrophy); Anticoagulated; Obstructive sleep apnea syndrome; Former smoker; BMI 40.0-44.9, adult (Multi) Start: 04-27-2024 End: 04-27-2024 ambulatory [facility] Start: 08-18-2023 End: 08-18-2023 ambulatory [facility] Start: 07-22-2023 ambulatory John R KELSEYL Facility : [facility] Start: 07-22-2023 End: 07-22-2023 Patient encounter procedure John R NILL [facility] Nill[facility] Start: 07-14-2023 End: 07-15-2023 ambulatory John R NILL Facility: [place] Start: 07-14-2023 End: 07-14-2023 Patient encounter procedure John R NILL [facility] Nill[facility] [place] Start: 07-07-2023 End: 07-08-2023 ambulatory John R NILL Facility:[facility] Start: 07-03-2023 End: 07-03-2023 ambulatory Andrea Govea II Facility:[facility] Start: 07-03-2023 End: 07-03-2023 ambulatory MD Real Dodd Work Phone: [facility] Work Phone: Start: 07-03-2023 End: 07-03-2023 Discharged Recurring MD Real Dodd Work Phone: [place] [place] Start: 06-23-2023 End: 06-24-2023 ambulatory John R NILL Facility: [facility] Start: 06-23-2023 End: 06-23-2023 Patient encounter procedure John Mendoza KELSEYL General Surgery Nill/[facility] Start: 06-17-2023 End: 06-17-2023 ambulatory JANES LEON Not Available Start: 06-08-2023 ambulatory John NILL Facility:[facility] Start: 05-27-2023 End: 05-27-2023 ambulatory Andrea Govea II Other [employer] Other Start: 05-27-2023 Postop follow up vis it related to original px Andrea Govea II [facility] Start: 05-18-2023 End: 05-27-2023 Evaluation and management of inpatient Basilia Adams Facility:[facility] Start: 05-18-2023 End: 05-27-2023 Evaluation and management of inpatient MD Real Dodd Work Phone: [place] Work Phone: Start: 05-12-2023 End: 05-18-2023 ambulatory Andrea Govea II Facility:[facility] Start: 05-12-2023 End: 05-18-2023 Admission to same day surgery center MD Real Dodd Work Phone: [facility] Ctr-Surgery Center [facility] [place] Start: 04-29-2023 End: 04-29-2023 ambulatory Andrea Govea II Other [facility] [employer] Other Start: 04-29-2023 Patient encounter procedure Andrea Govea II [facility] Start: 04-28-2023 End: 04-28-2023 ambulatory Andrea Govea II Facility:[facility] Start: 04-28-2023 End: 04-28-2023 ambulatory MD Real Dodd Work Phone: [facility] Ctr Work Phone: Start: 04-28-2023 End: 04-28-2023 Patient encounter procedure MD Real Dodd Work Phone: [facility] Work Phone: Start: 04-01-2023 End: 04-01-2023 ambulatory Andrea Govea II Facility:[facility] Start: 04-01-2023 End: 04-01-2023 ambulatory MD Real Dodd Work Phone: [facility] Ctr Work Phone: Start: 04-01-2023 End: 04-01-2023 Patient encounter procedure MD Real Dodd Work Phone: [facility] Ctr-Lab [facility] Start: 04-01-2023 End: 04-01-2023 ambulatory Andrea Govea II Facility:[facility] Start: 04-01-2023 End: 04-01-2023 ambulatory MD Real Dodd Work Phone: [place] Work Phone: Start: 04-01-2023 End: 04-01-2023 Patient encounter procedure MD Real Dodd Work Phone: [facility] Ctr-XRay [facility] Start: 02-03-2023 Office outpatient vi sit 25 minutes Real M Hoy Work Phone: [facility] 320 DO Work Phone: Start: 02-03-[address] Real Dodd Facility: Start: 01-22-2023 Rx Renewal Real Martínez Hoy Work Phone: [facility] 250 DO Work Phone: Start: 09-09-[address] Real Dodd Facility:[id number] Start: 09-08-2022 Patient encounter procedure Real Martínez Hoy Work Phone: [facility] Work Phone: Start: 09-08-[address] Jammie Velasquez Facility:[id number] Start: 08-05-2022 Office outpatient vi sit 25 minutes Real M Hoy Work Phone: [facility] 250 DO Work Phone: Start: 08-05-[address] Jammie Velasquez Facility: Start: 06-23-2022 Rx Renewal Real Martínez Hoy Work Phone: [facility] 250 DO Work Phone: Start: 05-26-2022 Rx Renewal Real M Hoy Work Phone: [facility] 250 DO Work Phone: Start: 05-06-2022 (Post-Op) Post-Op Andrea Jeferson II [facility] Start: 05-06-2022 End: 05-06-2022 ambulatory Andrea Govea II Other [facility] [employer] Other Start: 04-28-2022 End: 04-28-2022 ambulatory Andrea [place] II Other [employer] Other Start: 04-28-2022 Telephone encounter Andrea Govea II [facility] Start: 04-15-2022 End: 04-28-2022 Evaluation and management of inpatient MD Real Dodd Work Phone: [place] Start: 04-14-2022 End: 04-15-2022 Admission to same day surgery center MD Real Dodd Work Phone: [place] [place] Start: 04-14-2022 End: 04-15-2022 ambulatory MD Real Dodd Work Phone: [place] Work Phone: Start: 04-10-2022 End: 04-10-2022 ambulatory MD Real Dodd Work Phone: [place] Work Phone: Start: 04-10-2022 End: 04-10-2022 Patient encounter procedure MD Real Dodd Work Phone: [place] Start: 04-08-2022 End: 04-09-[address] REAL DODD Facility: Start: 04-04-2022 (Prolonged) Prolonge d Services Andrea Govea II [facility] Orth[facility] Start: 04-04-2022 End: 04-04-2022 ambulatory Andrea Govea II Other [employer] Other Start: 03-31-2022 End: 03-31-2022 Patient encounter procedure MD Real Dodd Work Phone: [place] Start: 03-31-2022 Registered Recurring MD Kinjal Dodd Work Phone: [place] [place] Start: 02-07-2022 End: 02-07-2022 ambulatory Andrea Govea II Other [employer] Other Start: 02-07-2022 Telephone encounter Andrea Govea II [facility] Start: 02-04-2022 End: 08-02-2022 Patient encounter procedure MD Real Dodd Work Phone: [facility] Ctr-Lab [facility] Start: 01-31-2022 End: 01-31-2022 ambulatory Andrea Jeferson II Other [employer] Other Start: 01-31-2022 Office outpatient vi sit 40 minutes Andrea [place] II [facility] Start: 01-31-2022 End: 01-31-2022 Discharged Recurring MD Real Dodd Work Phone: [facility] Ctr-Medical Specialist [address] Start: 01-23-2022 Office outpatient vi sit 25 minutes Real M Hoy Work Phone: [facility] 250 DO Work Phone: Start: 11-29-2021 End: 11-29-2021 ambulatory Andrea Jeferson II Other [employer] Other Start: 11-29-2021 Office outpatient ne w 45 minutes Andrea Jeferson II [facility] Start: 11-29-2021 Rx Renewal Real M Ju Work Phone: [facility] 250 DO Work Phone: Start: 09-17-2021 Office outpatient vi sit 25 minutes Real M Hoy Work Phone: [facility] 250 DO Work Phone: Start: 07-22-2021 End: 07-23-[address] REAL DODD Facility:[facility]1 Start: 07-12-2021 End: 07-13-[address] REAL DODD Facility:[facility] Start: 07-01-2021 End: 07-01-[address] REAL DODD Facility:[facility]1 Start: 06-12-2021 End: 06-13-[address] REAL DODD Facility:[facility]1 Start: 05-15-2021 Office outpatient vi sit 10 minutes Real M Hoy Work Phone: [facility] 250 DO Work Phone: Procedures Date Procedure Procedure Detail Performing Clinician Start: 08-18-2023 ECG 12-LEAD MOURHAF TR ABOULSSI Start: 07-14-2023 Excision of hemangioma John BARTLETT Comment on above: left arm Start: 05-25-2023 Duplex scan of lower limb veins MD Real Dodd Work Phone: Start: 05-12-2023 Total replacement of left knee joint MD Real Dodd Work Phone: Start: 05-12-2023 X-ray of left knee MD Kelley Dodd Work Phone: Start: 04-28-2023 Antibody screen Andrea Govea II Comment on above: Order Comment: Reaso n for Exam Age-related osteoporosis without current pathological fractu FASTING. JKW Result Comment: PERF ORMED BY: [address] [place] [address] OILER ISMAEL HERNANDEZ M.D. Start: 04-01-2023 Methicillin resistan [...] Performed By: #### V ITAD, PSASC #### [facility] [address] [place] [address] Dr. Jonelle Lechuga Arthroplasty of knee Real Dodd Work Phone: Cardioversion Real Dodd Work Phone: Colonoscopy Real Dodd Work Phone: Comment on above: [phone]; Excision of colon Real Dodd Work Phone: Comment on above: partial; Hernia repair Real Dodd Work Phone: History of lumbar laminectomy John BARTLETT Methicillin resistan t Staphylococcus aureus culture Real [place] Work Phone: Partial resection of colon Martínez BARTLETT Repair of joint of l eft knee John NILL Repair of joint of r ight knee John NILL Plan of Treatment Date Care Activity Detail Author Start: 01-31-2025 End: 01-31-2025 Patient encounter procedure 01/31/2025 1:20 PM EDT Office Visit [facility] [address] [facility] [place] [address] [place] [id number] Jammie Velasquez MD [address] [facility] [address], [address] [place] [address] [facility] Start: 04-27-2024 End: 04-27-2025 Basic metabolic 2000 panel - Serum or Plasma Basic Metabolic Panel Lab Routine Permanent atrial fibrillation (Multi) Essential hypertension Expected: 04/27/2024 (Approximate), Expires: 04/27/2025 [facility] Work Phone: Comment on above: Expected: 04/27/2024 (Approximate), Expires: 04/27/2025 Start: 04-27-2024 End: 04-27-2025 CBC panel - Blood by Automated count CBC Lab Routine Permanent atrial fibrillation (Multi) Essential hypertension Expected: 04/27/2024 (Approximate), Expires: 04/27/2025 [facility] Work Phone: Comment on above: Expected: 04/27/2024 (Approximate), Expires: 04/27/2025 Start: 04-27-2024 End: 04-27-2025 Lipid 1996 panel - Serum or Plasma Lipid Panel Lab Routine Permanent atrial fibrillation (Multi) Essential hypertension Expected: 04/27/2024 (Approximate), Expires: 04/27/2025 [facility] Service Area Work Phone: Comment on above: Expected: 04/27/2024 (Approximate), Expires: 04/27/2025 Start: 08-18-2023 FUV, Provider: Jammie Velasquez, Status: Pen, Time: 2:30 PM FUV, Provider: Jammie Velasquez, Status: Pen, Time: 2:30 PM -[facility] 320 DO Work Phone: Start: 05-27-2023 [facility] Start: 05-18-2023 Hospital admission [facility] Start: 05-18-2023 Referral to clinical dominatrix [facility] Start: 05-18-2023 [facility] Start: 05-12-2023 Referral to clinical dominatrix [facility] Start: 05-12-2023 Referral to rehabilitation physician [facility] Start: 05-12-2023 Hospital admission [facility] Start: 04-28-2023 [facility] Start: 04-01-2023 MRSA Culture MRSA Culture [facility] Start: 02-03-2023 FUV, Provider: Jammie Velasquez, Status: Pen, Time: 3:30 PM FUV, Provider: Jammie Velasquez, Status: Pen, Time: 3:30 PM -[facility] 250 DO Work Phone: Start: 09-09-2022 REST ONLY, Provider: DANDY HARTMAN NUCLEAR 01,[id number], Status: Pen, Time: 10:00 AM REST ONLY, Provider: DANDY JACOMEI NUCLEAR 01,[id number], Status: Pen, Time: 10:00 AM -[facility] 250 DO Work Phone: Start: 09-08-2022 STRESSNUC2, Provider : DANDY JACOMEI NUCLEAR 01,[id number], Status: Pen, Time: 10:00 AM STRESSNUC2, Provider: DANDY HHVI NUCLEAR 01,[id number], Status: Pen, Time: 10:00 AM [facility] 250 DO Work Phone: Start: 08-05-2022 FUV, Provider: Jammie Velasquez, Status: Pen, Time: 1:00 PM FUV, Provider: Jammie Velasquez, Status: Pen, Time: 1:00 PM [facility] 250 DO Work Phone: Start: 04-28-2022 [facility] Start: 04-15-2022 Hospital admission [facility] Start: 04-15-2022 Referral to clinical dominatrix [facility] Start: 04-15-2022 [facility] Start: 04-14-2022 Referral to clinical dominatrix [facility] Start: 04-14-2022 Hospital admission [facility] Start: 01-09-2022 FUV, Provider: Jammie Velasquez, Status: Pen, Time: 1:50 PM FUV, Provider: Jammie Velasquez, Status: Pen, Time: 1:50 PM [facility] 250 DO Work Phone: Start: 01-09-2022 FUV, Provider: Jammie Velasquez, Status: Pen, Time: 9:20 AM FUV, Provider: Jammie Velasquez, Status: Pen, Time: 9:20 AM [facility] 250 DO Work Phone: Start: 09-17-2021 FUV, Provider: Jammie Velasquez, Status: Pen, Time: 1:10 PM FUV, Provider: Jammie Velasquez, Status: Pen, Time: 1:10 PM [facility] 250 DO Work Phone: Start: 1966 DTaP/Tdap/Td Vaccine s (1 - Tdap) DTaP/Tdap/Td Vaccines (1 - Tdap) [facility] Start: 1962 Diabetes mellitus screening Diabetes Screening [facility] Start: 1962 Hepatitis C screening Hepatitis C Sc reening [facility] Start: 1944 Annual wellness visit Medicare Initial Physical (IPPE) [facility] Start: 1944 Lipid panel Lipid Panel [facility] Start: 1944 Medicare Annual Well ness Visit Medicare Annual Wellness Visit (AWV) [facility] Start: 1944 Screening for osteoporosis Bone Density Scan [facility] Cotinine [Mass/volum e] in Serum or Plasma [facility] Glucose measurement estimated from glycated hemoglobin [facility] Methicillin resistan t Staphylococcus aureus [Presence] in Unspecified specimen by Organism specific culture [facility] Nicotine [Mass/volum e] in Serum or Plasma [facility] Patient Education [facility] Ctr Work Phone: Patient referral [facility] C[facility] Work Phone: [facility] Immunizations Immunization Date Immunization Notes Care Provider Kristen padron 04-09-2023 influenza virus vaccine, unspecified formulation John BARTLETT [facility] [place] 04-10-2022 Fluzone High-Dose Quadrivalent 0.7 ML Intramuscular Suspension Prefilled Syringe Real Dodd Work Phone: [facility] 250 DO Work Phone: 04-10-2022 influenza, high dose seasonal, preservative-free Jammie Velasquez MD Work Phone: [facility] Work Phone: 04-10-2022 Pfizer COVID-19 Vac Bivalent 30 MCG/0.3ML Intramuscular Suspension Real Dodd Work Phone: [facility] [place] 03-25-2022 influenza, seasonal, injectable [facility] Work [facility]: Comment on above: Series: 01-10-2022 Comirnaty 30 MCG/0.3 ML Intramuscular Suspension [facility] Work Phone: 01-10-2022 COVID-19 mRNAMk (Pfizer) Real Dodd Work Phone: [facility] 01-10-2022 SARS-CoV-2 mRNA (ocioqriqqon-bixv-loexa se) vaccine John BARTLETT [facility] [place] 01-10-2022 SARS-CoV-2, Unspecified Jeffrey Velasquez MD Work Phone: [facility] Work Phone: 03-30-2021 Fluzone High-Dose Quadrivalent 0.7 ML Intramuscular Suspension Prefilled Syringe Real Dodd [facility] Work Phone: 03-30-2021 influenza, high dose seasonal, preservative-free Jammie Velasquez MD Work Phone: [facility] Work Phone: 03-30-2021 Pfizer-BioNTech COVID-19 Vacc 30 MCG/0.3ML Intramuscular Suspension Real Dodd Work Phone: [facility] Comment on above: Result Comment: 2022: [id number] 09-22-2020 zoster vaccine recombinant [facility] Work Phone: 08-24-2020 COVID-19 Vaccine Pfi zer - Documentation Purposes Only Andrea Govea II Other [facility] Comment on above: Result Comment: 2022: [id number] 08-17-2020 Pfizer-BioNTech COVID-19 Vacc 30 MCG/0.3ML Intramuscular Suspension Real Dodd Work Phone: [facility] 08-03-2020 COVID-19 Mk Hernandez (Pfizer) Real Ju Work Phone: [facility] Comment on above: Result Comment: 2022: [id number] 07-27-2020 Pfizer-BioNTech COVID-19 Vacc 30 MCG/0.3ML Intramuscular Suspension Real Dodd Work Phone: [facility] 06-16-2020 zoster vaccine recombinant [facility] Work Phone: 05-17-2020 zoster vaccine recombinant Real Dodd Work Phone: [facility] 03-12-2020 Fluzone High-Dose Quadrivalent 0.7 ML Intramuscular Suspension Prefilled Syringe Real M Ju [facility] Work Phone: 03-12-2020 influenza, high dose seasonal, preservative-free Jammie Velasquez MD Work Phone: [facility] Work Phone: 03-20-2019 influenza, high dose seasonal, preservative-free Real M Hoy [facility] Work Phone: 02-25-2018 influenza, high dose seasonal, preservative-free Real M Hoy Work Phone: [facility] 250 DO Work Phone: 02-25-2018 pneumococcal polysaccharide vaccine, 23 valent Real M Ju Work Phone: [facility] 04-17-2017 influenza, high dose seasonal, preservative-free Real Dodd Work Phone: [facility] [employer] 250 DO Work Phone: 07-06-2016 pneumococcal conjuga te vaccine, 13 valent Real Dodd [facility] DO Work Phone: 04-05-2015 influenza virus vaccine, unspecified formulation [facility]odd [facility] Work Phone: 03-26-2013 zoster vaccine, live Real Dodd Work Phone: [facility] Payers Date Payer Category Payer Medicare (Managed Care) [employer] [facility] [id number] 2023 Medicare [id number] 2023 Self-pay [id number] 1959 Medicare [id number] 1959 Unknown [id number] 2.16.840.1.505762.19 1944 Unknown [id number] 2.16.840.1.923224.3.579.2 .593 1944 Unknown [id number] 2.16.840.1.365962.3.579.2 .593 1944 Unknown [id number] 2.16.840.1.754115.3.579.2 .593 1944 Unknown [id number] 2.16.840.1.358630.3.579.2 .593 1944 Unknown [id number] 2.16.840.1.429954.3.579.2 .593 1944 Unknown [id number] 2.16.840.1.219046.3.579.2 .1068 1944 Unknown [id number] 2.16.840.1.934926.3.579.2 .1068 1944 Unknown [id number] 2.16.840.1.196415.3.579.2 .1068 1944 Unknown [id number] 2.16.840.1.630201.3.579.2 .356 1944 Unknown [id number] 2.16.840.1.926296.3.579.2 .356 1944 Unknown [id number] 2.16.840.1.333544.3.579.2 .1259 1944 Unknown [id number] 2.16.840.1.909803.3.579.2 .727 1944 Unknown [id number] 2.16.840.1.169357.3.579.2 .727 1944 Unknown [id number] 2.16.840.1.985893.3.579.2 .727 1944 Unknown [id number] 2.16.840.1.672097.3.579.2 .727 1944 Unknown [id number] 2.16.840.1.459185.3.579.2 .1244 1944 Unknown [id number] 2.16.840.1.441671.3.579.2 .1244 Unknown Unknown [id number] 2.16.840.1.180374.3.579.2 .531 Unknown [id number] 2.16.840.1.364143.3.579.2 .531 Unknown [id number] 2.16.840.1.240593.3.579.2 .531 Unknown [id number] 2.16.840.1.231358.3.579.2 .531 Unknown [id number] 2.16.840.1.980231.3.579.2 .531 Unknown [id number] 2.16.840.1.461754.3.579.2 .531 Social History Date Type Detail Facility Start: 08-18-2023 End: 04-27-2024 Consumes alcohol occasionally Consumes alcohol occasionally [facility] 250 DO Work Phone: Comment on above: 1 cup of coffee, sod a occasionally; quit 2000, 1/2 PPD; Start: 07-06-1979 End: 07-06-2001 Sex Assigned At [facility] Start: 1945 Sex Assigned At Male F [facility] Start: 03-31-2022 End: 04-27-2024 Tobacco smoking status [facility] Ex-smoker (finding) [facility] Start: 05-19-2023 Tobacco smoking stat us [facility] Never smoked tobacco (finding) [facility] Tobacco smoking status Never [facility] [place] End: 07-06-1999 History of tobacco use Current smoker [facility] Work Phone: End: 07-06-1999 History of tobacco use Cigarette Smoker [facility] Work Phone: Start: 04-27-2024 Tobacco use and exposure Smokeless tobacco non-user [facility] Work Phone: Start: 04-27-2024 Alcoholic beverage intake Current drinker of alcohol (finding) [facility] Work Phone: Start: 1945 Sex assigned at Not on file [facility] Work Phone: Start: 04-17-2024 End: 04-27-2024 Exposure to SARS-CoV-2 (event) Not sure [facility] Medical Equipment Procedure Code Equipment Code Equipment Origin al Text Equipment Identifier Dates Arthroplasty, knee, total, minimally invasive Orthopaedic cement, non-medicated [id number] FDA Start: 04-14-2022 Arthroplasty, knee, total, minimally invasive Knee femur stem prosthesis ()[id number] FDA Start: 04-14-2022 Arthroplasty, knee, total, minimally invasive Uncoated knee femur prosthesis ()[id number] FDA Start: 04-14-2022 Arthroplasty, knee, total, minimally invasive Tibial insert ()[id number] FDA Start: 04-14-2022 Arthroplasty, knee, total, minimally invasive Polyethylene patella prosthesis ()[id number] FDA Start: 04-14-2022 Arthroplasty, knee, total, minimally invasive Polymer orthopaedic cement restrictor, non-bioabsorbable, sterile ()[id number] FDA Start: 04-14-2022 Arthroplasty, knee, total, minimally invasive Uncoated knee tibia prosthesis, metallic ()[id number] FDA Start: 04-14-2022 Arthroplasty, knee, total, minimally invasive Orthopaedic cement, non-medicated ()[id number] FDA Start: 05-12-2023 Arthroplasty, knee, total, minimally invasive Uncoated knee femur prosthesis ()[id number] FDA Start: 05-12-2023 Arthroplasty, knee, total, minimally invasive Tibial insert ()[id number] FDA Start: 05-12-2023 Arthroplasty, knee, total, minimally invasive Polyethylene patella prosthesis ()[id number] FDA Start: 05-12-2023 Arthroplasty, knee, total, minimally invasive Knee stem ()[id number] FDA Start: 05-12-2023 Arthroplasty, knee, total, minimally invasive Uncoated knee tibia prosthesis, metallic ()[id number] FDA Start: 05-12-2023 Goals Date Patient Goal Desired Activity /State Functional Status Date Assessment Result Facility 06-23-2023 Functional Status N/A General Gray cee Guzmanue 05-27-2023 Functional status Patient is Pro gressing Toward Baseline [facility] Work Phone: 05-18-2023 Functional status Patient Not at Baseline [facility] Work Phone: 04-28-2022 Functional status Patient is Pro gressing Toward Baseline [facility] Work Phone: 04-15-2022 Functional status Patient at Baseline [facility] Work Phone: Mental Status Date Assessment Result Facility 05-27-2023 Cognitive function Cognitive Sta tus Patient at Baseline [facility] Work Phone: 05-18-2023 Cognitive function Cognitive Sta tus Patient at Baseline [facility] Work Phone: 04-28-2022 Cognitive function Cognitive Sta tus Patient at Baseline [facility] Work Phone: 04-15-2022 Cognitive function Cognitive Sta tus Patient at Baseline [facility] Work Phone: Clinical Notes 07-12-2021 to 04-27-2024 Jammie Velasquez MD - 04/27/2024 2:30 PM EDTPatient Instructions Note Date & Type Note Facility 04-27-2024 History of Present illness Narrative Subjective Al Kuo is a 78 y.o. male Chief Complaint Follow-up HPI Patient is here for follow-up continue management for permanent atrial fibrillation, hypertension, obesity and secondary pulmonary hypertension. Since last time I saw him he reports is feeling well. Denies complaint of chest pain, palpitation, lightheadedness, dizziness or syncope. Described functional class II. He has no recent cardiac complaint. ASSESSMENT: chronic atrial fibrillation. Completely asymptomatic heart rate appears to be controlled on long-term anticoagulation.. He elected for heart rate control on long-term anticoagulation strategy 2. Pulmonary hypertension due to sleep apnea 3. Hypertension, controlled 4. Morbid obesity. With no significant weight changes 5..sleep apnea. Patient admits he is not compliant with CPAP 6. 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 7. Shortness of breath recent ischemic evaluation was negative RECOMMENDATION: 1. The patient elected for heart rate control and long-term anticoagulation. Risk, benefit alternative anticoagulation reviewed patient should and agreed 2. I advised him to lose weight and exercise. 3. Continue to encourage him to be compliant with his CPAP consider surgical orders Spire device treatment 3. I advised him to repeat his lab work 4. Continue to restrict salt intake 5. Patient report he had lower extremity Doppler done in the past at [place] and it was negative for DVT and the patient is on chronic anticoagulation. That felt to be due to mild degree of lymphedema 6. Follow-up in 9 months with an EKG Review of Systems All other systems reviewed and are negative. Vitals: 04/27/24 1431 BP: 110/60 BP Location: Left arm Patient Position: Sitting Pulse: 60 Weight: 133 kg (294 lb 3.2 oz) Height: 1.778 m (5' 10 ) Objective Physical Exam Constitutional: Appearance: Normal appearance. HENT: Nose: Nose normal. Neck: Vascular: No carotid bruit. Cardiovascular: Rate and Rhythm: Normal rate. Rhythm irregularly irregular. Pulses: Normal pulses. Heart sounds: Normal heart sounds. Pulmonary: Effort: Pulmonary effort is normal. Abdominal: General: Bowel sounds are normal. Palpations: Abdomen is soft. Musculoskeletal: General: Normal range of motion. Cervical back: Normal range of motion. Right lower leg: No edema. Left lower leg: No edema. Skin: General: Skin is warm and dry. Neurological: General: No focal deficit present. Mental Status: He is alert. Psychiatric: Mood and Affect: Mood normal. Behavior: Behavior normal. Thought Content: Thought content normal. Judgment: Judgment normal. Allergies Triamcinolone Current Medications Current Outpatient Medications: allopurinol (Zyloprim) 300 mg tablet, Take 1 tablet (300 mg) by mouth once daily., Disp: , Rfl: apixaban (Eliquis) 5 mg tablet, Take 1 tablet (5 mg) by mouth 2 times a day., Disp: 180 tablet, Rfl: 3 carvedilol (Coreg) 25 mg tablet, Take 1 tablet (25 mg) by mouth 2 times a day., Disp: , Rfl: ferrous sulfate 325 (65 Fe) MG EC tablet, Take 65 mg by mouth 3 times a day with meals. Do not crush, chew, or split., Disp: , Rfl: folic acid (Folvite) 1 mg tablet, Take 1 tablet (1 mg) by mouth once daily., Disp: , Rfl: furosemide (Lasix) 40 mg tablet, Take 1 tablet (40 mg) by mouth once daily., Disp: 90 tablet, Rfl: 3 spironolactone (Aldactone) 25 mg tablet, TAKE 1 TABLET BY MOUTH EVERY DAY, Disp: 90 tablet, Rfl: 3 Assessment/Plan 1. Permanent atrial fibrillation (Multi) Follow Up In Cardiology Lipid Panel CBC Basic Metabolic Panel Lipid Panel CBC Basic Metabolic Panel 2. Essential hypertension Follow Up In Cardiology Follow Up In Cardiology Lipid Panel CBC Basic Metabolic Panel Lipid Panel CBC Basic Metabolic Panel 3. Sinus bradycardia Follow Up In Cardiology 4. Pulmonary hypertension (Multi) 5. LVH (left ventricular hypertrophy) 6. Anticoagulated 7. Obstructive sleep apnea syndrome 8. Former smoker 9. BMI 40.0-44.9, adult (Multi) Scribe Attestation By signing my name below, Brenda Ghotra LPN, Scribe attest that this documentation has been prepared under the direction and in the presence of Jammie Velasquez MD. Provider Attestation - Scribe documentation All medical record entries made by the Scribe were at my direction and personally dictated by me. I have reviewed the chart and agree that the record accurately reflects my personal performance of the history, physical exam, discussion and plan. documented in this encounter [facility] Work Phone: 04-27-2024 Instructions Brenda Gonzalez LPN - 04/27/2024 2:30 PM EDT Please bring all medicines, vitamins, and herbal supplements with you when you come to the office. Prescriptions will not be filled unless you are compliant with your follow up appointments or have a follow up appointment scheduled as per instruction of your physician. Refills should be requested at the time of your visit. BMI was above normal measurement. Current weight: 133 kg (294 lb 3.2 oz) Weight change since last visit (-) denotes wt loss -5.8 lbs Weight loss needed to achieve BMI 25: 120.3 Lbs Weight loss needed to achieve BMI 30: 85.6 Lbs Provided instructions on dietary changes Provided instructions on exercise. 9 month with EKG Lab work documented in this encounter [facility] Work Phone: 06-23-2023 Note Chief Complaint consultation for skin [...] inactivated 04/09/2023 Recorded (more content not included)... [facility] Comment on above: Result Comment: Elec tronically Signed By: TRI VICKERS, John Echevarria\Date and Time Signed: 06/23/23 14:12 EST 05-27-2023 Evaluation note Encounter Date Diagnosis Assessment Notes May, Status post left knee replacement (ICD-10 - Z96.652) May, Aftercare following joint replacement surgery (ICD-10 - Z47.1) May, Presence of left artificial knee joint (ICD-10 - Z96.652) May, Other [facility] [place] [facility] [place] Sutures removed today. Steri-Strips applied. [...] 3 view x-rays of the left knee. [employer] Other 11-21-2023 Progress note Author Bernadette Carr [facility] May 26, 2023 3:14pm Note Date/Time May 26, 2023 3:00pm [facility] [address] [place] [address] Hospitalist Progress Note Signed Patient: Al Kuo MR# : [id number] : 1945 Acct:[id number] Age/Sex: 77 / M Adm Date: 3 Loc: Room: 7W7433-5 Type: ADM IN Attending Dr: Delmer Whyte [...] mg 05/18/23 15:53 Bisacodyl 10 Mg Supp.Rect SC 05/17/24 15:52 DAILY PRN Constipation Carvedilol 25 [...] 15:53 Docusate Enema 283 Mg/5 Ml Enema SC 05/17/24 15:52 DAILY PRN Constipation Ferrous Sulfate 324 mg 05/18/23 17:00 05/25/23 16:09 Ferrous Sulfate 324 Mg Tablet. PO 05/17/24 [...] 05/25/23 09:59 Prednisone 10 Mg Tablet PO 11/13/24 08:59 10 mg DAILY NIKOLAS Administration Senna/Docusate [...] sleep apnea does not wear CPAP or [id number] Documented By: Bernadette Carr APRN 05/07 07/28 1500 Signed By: <Electronically signed by QUYNH Carr> 05/26/23 0684 [facility] Work Phone: 1(422) 606-225111-20-2023 Progress note Author Delmer Whyte [facility] May 25, 2023 3:29pm Note Date/Time May 25, 2023 3:29pm [facility] [address] [place] [address] Physiatry(Rehab) Progress Note Signed Patient: Al Kuo MR# : [id number] : 1945 Acct:[id number] Age/Sex: 77 / M Adm Date: 3 Loc: Room: [address] [place] [address] Type: ADM IN Attending Dr: Delmer Whyte [...] mg 05/18/23 15:53 Bisacodyl 10 Mg Supp.Rect SC 05/17/24 15:52 DAILY PRN Constipation Carvedilol 25 [...] 15:53 Docusate Enema 283 Mg/5 Ml Enema SC 05/17/24 15:52 DAILY PRN Constipation Ferrous Sulfate [...] equipment to enhance the patient's a functional religion Ensure adequate nutrition and hydration Sleep issues no concerns Pain: Continue current regimen Discharge planning: Home in a week or so. Plan: I completed a substantive portion of this encounter, the medical decision making portion of this note in its entirety, including Allied health note review, nursing note review, sap portal consultant note review, discussion with nursing and case management, and more than 50% of my time was spent on counseling and coordination of care, time spent 20 minutes Patient was personally seen by me, Dr. Whyte, on the day of encounter, reviewed the history and the relevant portions of the chart, including current orders, allied health and sap portal consultant notes, labs/imaging and performed jim elements of exam and I formulated the plan of care and facilitated the medical decision making. Documented By: Delmer Whyte MD 05/25/23 152 Signed By: <Electronically signed by Delmer Whyte MD> 05/25/23 1529 [place] Work Phone: 1(635) 544-736011-18-2023 Progress note Author Omar Jackman [facility] May 23, 2023 3:41pm Note Date/Time May 23, 2023 3:41pm [facility] [address] [place] [address] Physiatry(Rehab) Progress Note Signed Patient: Al Kuo MR# : [id number] : 1945 Acct:[id number] Age/Sex: 77 / M Adm Date: 3 Loc: Room: [id number] Type: ADM IN Attending Dr: Delmer Whyte [...] mg 05/18/23 15:53 Bisacodyl 10 Mg Supp.Rect SC 05/17/24 15:52 DAILY PRN Constipation Carvedilol 25 mg 05/18/23 21:00 05/23/23 08:09 Carvedilol 25 Mg Tablet PO 05/17/24 20:59 25 mg BID NIKOLAS Administration Cefadroxil 500 mg 05/18/23 21:00 05/23/23 08:09 Cefadroxil 500 Mg Capsule PO 05/25/23 20:59 500 mg BID NIKOLAS Administration Cyanocobalamin 1,000 mcg 05/19/23 09:00 05/23/23 08:09 Cyanocobalamin 1,000 Mcg Tablet PO 05/18/24 08:59 1,000 mcg QAM [facility] Administration Docusate Sodium 100 mg 05/18/23 15:53 05/23/23 05:46 Docusate 100 Mg Capsule PO 05/17/24 15:52 100 mg BID PRN Administration Constipation Docusate Sodium 283 mg 05/18/23 15:53 Docusate Enema 283 Mg/5 Ml Enema SC 05/17/24 15:52 DAILY PRN Constipation Ferrous Sulfate 324 mg 05/18/23 17:00 05/23/23 08:11 Ferrous Sulfate 324 Mg Tablet.Dr JEONG 05/17/24 16:59 324 mg BID.WITH.MEALS NIKOLAS Administration [...] equipment to enhance the patient's a functional religion Ensure adequate nutrition and hydration Sleep issues no concerns Pain: Continue current regimen Discharge planning: Home in a week or so. Plan: I completed a substantive portion of this encounter, the medical decision making portion of this note in its entirety, including Allied health note review, nursing note review, sap portal consultant note review, discussion with nursing and case management, and more than 50% of my time was spent on counseling and coordination of care, time spent 20 minutes Patient was personally seen by me, Dr. Jackman, on the day of encounter, reviewed the history and the relevant portions of the chart, including current orders, allied health and sap portal consultant notes, labs/imaging and performed jim elements of exam and I formulated the plan of care and facilitated the medical decision making. Documented By: Omar Jackman MD 1540 Signed By: <Electronically signed by Omar Jackman MD> 05/23/23 3614 [facility] Work Phone: 1(216) 916-657011-17-2023 Progress note Author Omar Jackman [facility] May 22, 2023 3:34pm Note Date/Time May 22, 2023 3:34pm [facility] [address] [place] [address] Physiatry(Rehab) Progress Note Signed Patient: Al Kuo MR# : [id number] : 1945 Acct:[id number] Age/Sex: 77 / M Adm Date: 3 Loc: Room: 3P8602-1 Type: ADM IN Attending Dr: Delmer Whyte [...] mg 05/18/23 15:53 Bisacodyl 10 Mg Supp.Rect SC 05/17/24 15:52 DAILY PRN Constipation Carvedilol 25 [...] 15:53 Docusate Enema 283 Mg/5 Ml Enema SC 05/17/24 15:52 DAILY PRN Constipation Ferrous Sulfate [...] equipment to enhance the patient's a functional religion Ensure adequate nutrition and hydration Sleep issues no concerns Pain: Continue current regimen Discharge planning: Home in a week or so. Plan: I completed a substantive portion of this encounter, the medical decision making portion of this note in its entirety, including Allied health note review, nursing note review, sap portal consultant note review, discussion with nursing and case management, and more than 50% of my time was spent on counseling and coordination of care, time spent 20 minutes Patient was personally seen by me, Dr. Jackman, on the day of encounter, reviewed the history and the relevant portions of the chart, including current orders, allied health and sap portal consultant notes, labs/imaging and performed jim elements of exam and I formulated the plan of care and facilitated the medical decision making. Documented By: Omar Jackman MD 1531 Signed By: <Electronically signed by Omar Jackman MD> 05/22/23 1537 [place] Work Phone: 1([phone]) 378-336911-16-2023 Progress note Author Omar Jackman [facility] May 21, 2023 2:24pm Note Date/Time May 21, 2023 12:25pm [facility] [address] [place] [address] Physiatry(Rehab) Progress Note Signed Patient: Al Kuo MR# : [id number] : 1945 Acct:[id number] Age/Sex: 77 / M Adm Date: 3 Loc: Room: 6Y9457-4 Type: ADM IN Attending Dr: Delmer Whyte [...] affect appropriate. Normal speech. Objective <Lillian Harris, DIALYSIS REGISTERED NURSE - Last Filed: 05/21/23 12:25> Labs 05/19/23 [...] mg 05/18/23 15:53 Bisacodyl 10 Mg Supp.Rect SC 05/17/24 15:52 DAILY PRN Constipation Carvedilol 25 mg 05/18/23 21:00 05/21/23 10:08 Carvedilol 25 Mg Tablet PO 05/17/24 20:59 25 mg BID NIKLOAS Administration Cefadroxil 500 mg 05/18/23 21:00 05/21/23 [...] 15:53 Docusate Enema 283 Mg/5 Ml Enema SC 05/17/24 15:52 DAILY PRN Constipation Ferrous Sulfate 324 mg 05/18/23 17:00 05/21/23 10:09 Ferrous Sulfate 324 Mg Tablet. PO 05/17/24 [...] mcg DAILY NIKOLAS Administration Assessment/Plan <Lillian Harris, DIALYSIS REGISTERED NURSE - Last Filed: 05/21/23 12:25> Assessment/Plan (1) [...] equipment to enhance the patient's a functional religion Ensure adequate nutrition and hydration Sleep issues no concerns Pain: Continue current regimen Discharge planning: Home in a week or so. I spent greater than 15 minutes for services, including fqfc-cf-hood encounter with the patient, discussion of the case, plan of care, and exam; and vxeotvj-au-ujak activities, such as reviewing pertinent sap portal consultant documentation, recent therapy notes, laboratory and radiology studies, and discussion of case with care team including physician, nursing, onsite case manager, and therapists. More than 50 [...] Allied health note review, nursing note review, sap portal consultant note review, discussion with nursing and case management, and more than 50% of my time was spent on counseling and coordination of care, time spent 20 minutes Patient was personally seen by me, Dr. Jackman, on the day of encounter, within 24 hours of rehab admission, reviewed the history and the relevant portions of the chart, including current orders, allied health and sap portal consultant notes, labs/imaging and performed jim elements of exam and I formulated the plan of care and facilitated the medical decision making. Agree with above. Patient doing well. Hopeful DC next week early. Documented By: Lillian Harris APRN 05/21/23 1 219 Signed By: <Electronically signed by QUYNH Harris> 05/21/23 1225 <Electronically signed by Omar Jackman MD> 05/21/23 1424 [facility] Work Phone: 1([phone]) 579-879511-15-2023 Progress note Author Omar Jackman [facility] May 20, 2023 7:30pm Note Date/Time May 20, 2023 7:30pm [facility] [address] [place] [address] Physiatry(Rehab) Progress Note Signed Patient: Al Kuo MR# : [id number] : 1945 Acct:[id number] Age/Sex: 77 / M Adm Date: 3 Loc: Room: 5E4040-7 Type: ADM IN Attending Dr: Delmer Whyte [...] mg 05/18/23 15:53 Bisacodyl 10 Mg Supp.Rect SC 05/17/24 15:52 DAILY PRN Constipation Carvedilol 25 [...] 15:53 Docusate Enema 283 Mg/5 Ml Enema SC 05/17/24 15:52 DAILY PRN Constipation Ferrous Sulfate [...] equipment to enhance the patient's a functional religion Ensure adequate nutrition and hydration Sleep issues no concerns Pain: Continue current regimen Discharge planning: Home in a week or so. Plan: I completed a substantive portion of this encounter, the medical decision making portion of this note in its entirety, including Allied health note review, nursing note review, sap portal consultant note review, discussion with nursing and case management, and more than 50% of my time was spent on counseling and coordination of care, time spent 25 minutes Patient was personally seen by me, Dr. Jackman, on the day of encounter, within 24 hours of rehab admission, reviewed the history and the relevant portions of the chart, including current orders, allied health and sap portal consultant notes, labs/imaging and performed jim elements of exam and I formulated the plan of care and facilitated the medical decision making. Documented By: Omar Jackman MD 1926 Signed By: <Electronically signed by Omar Jackman MD> 05/20/231929 [facility] Work Phone: 1([phone]) 285-475911-15-2023 Consult note Author Taiwo Guy [facility] May 20, 2023 8:02am Note Date/Time May 19, 2023 6:15pm [facility] [address] [place] [address] Hospitalist Consult Note Signed Patient: Al Kuo MR# : [id number] : 1945 Acct:[id number] Age/Sex: 77 / M Adm Date: 3 Loc: Room: 8J3071-7 Type: ADM IN Attending Dr: Delmer Whyte MD Copies to: MD Real Oscar MD Joseph Riley, MD Linda Obika, DIALYSIS REGISTERED NURSE~ HPI DATE OF CONSULTATION: 05/19/23 REQUESTING PROVIDER: [...] of care and confirmed it with the resident/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 Mr. Al Kuo is a 77-year-old male [...] negative unless noted in the HPI below PMFSH Source: Old Records Reviewed Medical History Arthritis [...] oil (Fleet Mineral Oil enema) 1 ea SC ONCE PRN Constipation 05/18/23 [Rx] ondansetron 4 [...] mg 05/18/23 15:53 Bisacodyl 10 Mg Supp.Rect SC 05/17/24 15:52 DAILY PRN Constipation Carvedilol 25 mg 05/18/23 21:00 05/19/23 09:11 Carvedilol 25 Mg Tablet PO 05/17/24 20:59 25 mg BID NIKOLAS Administration Cefadroxil 500 mg 05/18/23 21:00 05/19/23 09:11 Cefadroxil 500 Mg Capsule PO 500 mg BID NIKOLAS Administration Cyanocobalamin 1,000 mcg 05/19/23 09:00 05/19/23 09:12 Cyanocobalamin 1,000 Mcg Tablet PO 05/18/24 08:59 1,000 mcg QAM [facility] Administration Docusate Sodium 100 mg 05/18/23 15:53 Docusate 100 Mg Capsule PO 05/17/24 15:52 BID PRN Constipation Docusate Sodium 283 mg 05/18/23 15:53 Docusate Enema 283 Mg/5 Ml Enema SC 05/17/24 15:52 DAILY PRN Constipation Ferrous Sulfate 324 mg 05/18/23 17:00 05/19/23 16:42 Ferrous Sulfate 324 Mg Tablet.Dr PO 05/17/24 [...] % (Auto) 76.6, Lymph % (Auto) 11.5, Humphreys % (Auto) 9.4, Eos % (Auto) 2.2, Baso % (Auto) 0.3, Nucleat RBC Rel Count 0.1, Neut # (Auto) 8.1 H, Lymph # (Auto) 1.2, Humphreys # (Auto) 1.0 H, Eos # (Auto) [...] sleep apnea does not wear CPAP or I3efodsfzshrt 4. On chronic steroid use, patient does not know why they are on steroid Documented By: Bindu Zabala APRN 05/19/231802 Signed By: <Electronically signed by QUYNH Zabala> 05/19/23 182 <Electronically signed by Taiwo Guy MD> 05/20/23 0802 [facility] Work Phone: [phone] History and physical note Author Omar Jcakman [facility] May 19, 2023 2:34pm Note Date/Time May 19, 2023 10:03am [facility] [address] [place] [address] Physiatry (Rehab) H&P Signed Patient: Al Kuo MR# : [id number] : 1945 Acct:[id number] Age/Sex: 77 / M Adm Date: 3 Loc: Room: 3W8217-6 Type: ADM IN Attending Dr: Delmer Whyte [...] patient is planning to return home alone. [facility] Medical History Arthritis Atrial fibrillation Colon cancer [...] oil (Fleet Mineral Oil enema) 1 ea SC ONCE PRN Constipation 05/18/23 [Rx] ondansetron 4 [...] Tablet) 1,000 mg PO Q8H NIKOLAS Stop: 05/17/24 21:59 Last Admin: 05/19/23 05:59 Dose: 1,000 mg Al Hydrox/Mg Hydrox/Simethicone (Mag Hydrox/Al Hydrox/Simeth 30 Ml Udc) 30 ml PO Q4H PRN PRN Reason: Indigestion Stop: 05/17/24 15:52 Allopurinol (Allopurinol 300 Mg Tablet) 300 mg PO QAM NIKOLAS Stop: 05/18/24 08:59 Last Admin: 05/19/23 09:12 Dose: 300 mg Apixaban (Apixaban 5 Mg Tablet) 5 mg PO BID NIKOLAS Stop: 05/17/24 20:59 Last Admin: 05/19/23 09:12 Dose: 5 mg Ascorbic Acid (Ascorbic Acid 500 Mg Tablet) 500 mg PO BID.WITH.MEALS NIKOLAS Stop: 05/17/24 16:59 Last Admin: 05/19/23 09:12 Dose: 500 mg Bisacodyl (Bisacodyl 5 Mg Tablet.Dr) 10 mg PO DAILY PRN PRN Reason: Constipation Stop: 05/17/24 15:46 Last Admin: 05/19/23 09:12 Dose: 10 mg Bisacodyl (Bisacodyl 10 Mg Supp.Rect) 10 mg SC DAILY PRN PRN Reason: Constipation Stop: 05/17/24 15:52 Carvedilol (Carvedilol 25 Mg Tablet) 25 mg PO BID [facility] Stop: 05/17/24 20:59 Last Admin: 05/19/23 09:11 Dose: 25 mg Cefadroxil (Cefadroxil 500 Mg Capsule) 500 mg PO BID [facility] Last Admin: 05/19/23 09:11 Dose: 500 mg Cyanocobalamin (Cyanocobalamin 1,000 Mcg Tablet) 1,000 mcg PO QAM [facility] Stop: 05/18/24 08:59 Last Admin: 05/19/23 09:12 Dose: 1,000 mcg Docusate Sodium (Docusate 100 Mg Capsule) 100 mg PO BID PRN PRN Reason: Constipation Stop: 05/17/24 15:52 Docusate Sodium (Docusate Enema 283 Mg/5 Ml Enema) 283 mg SC DAILY PRN PRN Reason: Constipation Stop: 05/17/24 15:52 Ferrous Sulfate (Ferrous Sulfate 324 Mg Tablet.Dr) 324 mg PO BID.WITH.MEALS [facility] Stop: 05/17/24 16:59 Last Admin: 05/19/23 09:12 Dose: 324 mg Folic Acid (Folic Acid 1 Mg Tablet) 1 mg PO DAILY [facility] Stop: 05/18/24 08:59 Last Admin: 05/19/23 [...] 10 Mg Tablet) 10 mg PO DAILY [facility] Stop: 05/18/24 08:59 Last Admin: 05/19/23 09:11 Dose: 10 mg Senna/Docusate Sodium (Sennosides/Docusate 8.6-50mg 1 Tab Tablet) 2 tab PO DAILY [facility] Stop: 05/18/24 08:59 Last Admin: 05/19/23 09:11 Dose: 2 tab Sennosides (Sennosides 8.6 Mg Tablet) 2 tab PO DAILY@12 PRN PRN Reason: If no BM in 2 days Stop: 05/18/24 11:59 Sodium Chloride (Sodium Chloride 0.9 % 10 Ml Syringe) 0 ml IV-PUSH PRN PRN PRN Reason: Flush Stop: 05/17/24 15:52 Spironolactone (Spironolactone 25 Mg Tablet) 25 mg PO QAM [facility] Stop: 05/18/24 08:59 Last Admin: 05/19/23 09:11 Dose: 25 mg Tramadol HCl (Tramadol 50 Mg Tablet) 50 mg PO Q4H PRN PRN Reason: Pain Scale 5 - 7 Stop: 11/14/23 15:46 Vitamin D (Cholecalciferol 125 Mcg (5,000 Units) Capsule) 125 mcg PO DAILY [facility] Stop: 05/18/24 08:59 Last Admin: 05/19/23 [...] % (Auto) 76.6 Lymph % (Auto) 11.5 Humphreys % (Auto) 9.4 Eos % (Auto) 2.2 Baso % (Auto) 0.3 Nucleat RBC Rel Count 0.1 Neut # (Auto) 8.1 H Lymph # (Auto) 1.2 Humphreys # (Auto) 1.0 H Eos # (Auto) [...] 7 Days Expected Discharge Destination: Home Rehabilitation IGC: 8.61 Primary Diagnosis: as above Patient?s/Family?s anticipated [...] 24 hour daily monitoring and intervention from Info Print Press Operator as well as other consulting physicians including internal medicine as well as 24 hour daily prop worker nursing - for medical safe / optimal [...] equipment to enhance the patient's a functional religion Ensure adequate nutrition and hydration Sleep issues no concerns Pain: Continue current regimen Discharge planning: Home in a week or so. I spent greater than 35 minutes for services, including mink-kh-skzw encounter with the patient, discussion of the case, plan of care, and exam; and nlfwxdw-vd-fdkr activities, such as reviewing pertinent sap portal consultant documentation, recent therapy notes, laboratory and radiology studies, and discussion of case with care team including physician, nursing, onsite case manager, and therapists. More than 50 % of time was spent on patient/family counseling or coordination of care. Plan: I completed a substantive portion of this encounter, the medical decision making portion of this note in its entirety, including Allied health note review, nursing note review, sap portal consultant note review, discussion with nursing and case management, and more than 50% of my time was spent on counseling and coordination of care, time spent 45 minutes Patient was personally seen by me, Dr. Jackman, on the day of encounter, within 24 hours of rehab admission, reviewed the history and the relevant portions of the chart, including current orders, allied health and sap portal consultant notes, labs/imaging and performed jim elements [...] <Electronically signed by Omar Jackman MD> 05/19/23 1433 [place] Work Phone: 1([phone]) 839-643410-25-2023 Evaluation note* Encounter Date Diagnosis Assessment Notes Treatment Notes Treatment Clinical Notes Apr, Aftercare following joint replacement surgery (ICD-10 - Z47.1) Apr, Presence of right artificial knee joint (ICD-10 - Z96.651) Apr, Acute pain of left knee (ICD-10 - M25.562) Apr, Age-related osteoporosis without current pathological fracture (ICD-10 - M81.0) Apr, 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 Left TKA Home Medications - DVT prophylaxis: Home Eliquis - NSAID: Prednisone 10 mg x 10 days postop - Disposition: Inpatient with possible rehab. He did very well with inpatient rehab after his right knee. Joints Meeting Checklist - Pharmacy: [facility] bed - Approach/Technique: BUTCH - Implants: Persona; [...] above surgery. OARRS report generated and reviewed. [employer] Other 11-01-2022 Evaluation note* Encounter Date Diagnosis Assessment Notes Treatment Notes Treatment Clinical Notes May, Aftercare following joint replacement surgery (ICD-10 - Z47.1) May, Presence of right artificial knee joint (ICD-10 - Z96.651) May, Other [facility] on 04/14/2022 Overall doing very well. [...] 3 view x-rays of the right knee. [employer] Image Other 10-22-2022 Progress note Author Watson Ryan [facility] April 26, 2022 2:20pm Note Date/Time April 26, 2022 2 :06pm [facility] [address] [place] [address] Hospitalist Progress Note Signed Patient: Al Kuo MR# : [id number] : 1945 Acct:[id number] Age/Sex: 76 / M Adm Date: 2 Loc: Room: 5X0880-4 Type: ADM IN Attending Dr: Delmer Whyte [...] mg 04/15/22 16:51 Bisacodyl 10 Mg Supp.Rect SC 04/15/23 16:50 DAILY PRN Constipation Carvedilol 25 [...] 16:51 Docusate Enema 283 Mg/5 Ml Enema SC 04/15/23 16:50 DAILY PRN Constipation Ferrous Sulfate 324 mg 04/21/22 21:00 04/26/22 08:52 Ferrous Sulfate 324 Mg Tablet. PO 04/21/23 [...] 04/18/22 11:20 04/26/22 08:52 Omeprazole 20 Mg Capsule. PO 04/18/23 11:19 [...] signed by Watson Ryan MD> 04/26/22 1420 [facility] Work Phone: 1(661) 726-238210-20-2022 Progress note Author Tommy Bah [facility] April 24, 2022 11:30am Note Date/Time April 23, 2022 1 2:07pm [facility] [address] [place] [address] Physiatry(Rehab) Progress Note Signed Patient: Al Kuo MR# : [id number] : 1945 Acct:[id number] Age/Sex: 76 / M Adm Date: 2 Loc: Room: [address] [place] [address] Type: ADM IN Attending Dr: Delmer Whyte [...] oriented, calm and cooperative, no acute distress. [facility] Head: normal to inspection Eyes General: [...] Affect: normal affect Endurance fair Objective <Lillian Burnettarvind, DIALYSIS REGISTERED NURSE - Last Filed: 04/23/22 12:30> Labs CBC [...] mg 04/15/22 16:51 Bisacodyl 10 Mg Supp.Rect SC 04/15/23 16:50 DAILY PRN Constipation Carvedilol 25 mg 04/15/22 21:00 04/23/22 08:05 Carvedilol 25 Mg Tablet PO 04/15/23 20:59 Not Given BID NIKOLAS Cyanocobalamin 1,000 mcg 04/16/22 09:00 04/23/22 08:05 Cyanocobalamin 1,000 Mcg Tablet PO 04/16/23 08:59 Not Given QAM NIKOLAS Docusate Sodium 100 mg 04/15/22 16:51 04/20/22 06:36 Docusate 100 Mg Capsule PO 04/15/23 16:50 100 mg BID PRN Administration Constipation Docusate Sodium 283 mg 04/15/22 16:51 Docusate Enema 283 Mg/5 Ml Enema SC 04/15/23 16:50 DAILY PRN Constipation Ferrous Sulfate 324 mg 04/21/22 21:00 04/23/22 08:06 Ferrous Sulfate 324 Mg Tablet. PO 04/21/23 20:59 Not Given BID NIKOLAS Folic Acid 1 mg 04/16/22 09:00 04/23/22 08:06 Folic Acid 1 Mg Tablet PO 04/16/23 08:59 Not Given DAILY NIKOLAS Furosemide 40 mg 04/18/22 08:00 04/23/22 07:44 Furosemide 40 Mg Tablet PO 04/18/23 07:59 40 mg DAILY.8A NIKOLAS Administration Furosemide 20 mg 04/23/22 16:00 Furosemide 20 Mg Tablet PO 04/25/22 15:59 DAILY@1600 NIKOLAS Hydralazine HCl 25 mg 04/18/22 21:00 Hydralazine 25 Mg Tablet PO 04/18/23 20:59 BID NIKOLAS Lactulose 30 gm 04/15/22 16:51 04/20/22 15:14 Lactulose 20 Gm/30 Ml Udc PO 04/15/23 16:50 30 gm DAILY PRN Administration Constipation Lisinopril 10 mg 04/19/22 09:00 Lisinopril 10 Mg Tablet PO 04/19/23 08:59 QAM [facility] Melatonin 5 mg 04/16/22 22:00 04/22/22 20:02 Melatonin 5 Mg Tablet PO 04/16/23 21:59 5 mg QHS NIKOLAS Administration Omeprazole 20 mg 04/18/22 11:20 04/23/22 08:06 Omeprazole 20 Mg Capsule. PO 04/18/23 11:19 Not Given DAILY [facility] Ondansetron HCl 8 mg 04/15/22 16:42 [...] 08:59 Not Given DAILY NIKOLAS Assessment/Plan <Lillian Harris APRN - Last Filed: 04/23/22 12:30> Assessment/Plan (1) [...] equipment to enhance the patient's a functional religion Encourage deep breathing exercises and incentive spirometry [...] Pain control: Tylenol, topical modalities. Minimize opioids. [place] ice. Bowel and bladder: Bowel regimen in place. Skin: Prevent skin breakdown. Monitor operative site. Sleep: Poor sleep reported. Initiate melatonin and trazodone. DVT prophylaxis: Covered with Eliquis. Functional status: Needs assist Discharge planning: Hopefully home in 1 to 2 weeks. I spent greater than 20 minutes for services, including byxu-ha-lotx encounter with the patient, discussion of the case, plan of care, and exam; and owjzjti-hg-liff activities, such as reviewing pertinent sap portal consultant documentation, recent therapy notes, laboratory and radiology studies, and discussion of case with care team including physician, nursing, onsite case manager, and therapists. More than 50 [...] Allied health note review, nursing note review, sap portal consultant note review, discussion with nursing and case management Documented By: Lillian Harris APRN 04/23/22 1 206 Signed By: <Electronically signed by QUYNH Harris> 04/23/22 1231 <Electronically signed by Tommy Bah Jr DO> 04/24/22 [address] [place] Work Phone: 1(448) 442-663610-20-2022 Progress note Author Tommy Bah [facility] April 24, 2022 11:29am Note Date/Time April 24, 2022 1 1:29am [facility] [address] [place] [address] Physiatry(Rehab) Progress Note Signed Patient: Al Kuo MR# : [id number] : 1945 Acct:[id number] Age/Sex: 76 / M Adm Date: 2 Loc: Room: 2B1969-0 Type: ADM IN Attending Dr: Delmer Whyte [...] mg 04/15/22 16:51 Bisacodyl 10 Mg Supp.Rect SC 04/15/23 16:50 DAILY PRN Constipation Carvedilol 25 [...] 16:51 Docusate Enema 283 Mg/5 Ml Enema SC 04/15/23 16:50 DAILY PRN Constipation Ferrous Sulfate 324 mg 04/21/22 21:00 04/24/22 09:26 Ferrous Sulfate 324 Mg Tablet.Dr PO 04/21/23 [...] 04/18/22 11:20 04/24/22 09:26 Omeprazole 20 Mg Capsule.Dr PO 04/18/23 11:19 [...] equipment to enhance the patient's a functional religion Encourage deep breathing exercises and incentive spirometry [...] Pain control: Tylenol, topical modalities. Minimize opioids. [place] ice. Bowel and bladder: Bowel regimen in place. Skin: Prevent skin breakdown. Monitor operative site. Sleep: Poor sleep reported. Initiate melatonin and trazodone. DVT prophylaxis: Covered with Eliquis. Functional status: Needs assist Discharge planning: Hopefully home in 1 to 2 weeks. Documented By: Tommy Bah Jr, 2 1126 Signed By: <Electronically signed by Tommy Bah Jr, DO> 04/24/22 [address] [place] Work Phone: 1([phone] 233-695710-20-2022 Progress note Author Andrea Govea [facility] April 24, 2022 7:07am Note Date/Time April 24, 2022 7 :07am [facility] [address] [place] [address] Orthopedic Progress Note Signed Patient: Al Kuo MR# : [id number] : 1945 Acct:[id number] Age/Sex: 76 / M Adm Date: 2 Loc: Room: 5X8390-7 Type: ADM IN Attending Dr: Delmer Whyte [...] <Electronically signed by Andrea Govea MD> 04/24/22 [address] [place] Work Phone: 1([phone] 774-124510-18-2022 Progress note Author Tommy Bah [facility] April 22, 2022 11:44am Note Date/Time April 22, 2022 1 1:44am [facility] [address] [place] [address] Physiatry(Rehab) Progress Note Signed Patient: Al Kuo MR# : [id number] : 1945 Acct:[id number] Age/Sex: 76 / M Adm Date: 2 Loc: Room: 3F4842-7 Type: ADM IN Attending Dr: Delmer Whyte [...] mg 04/15/22 16:51 Bisacodyl 10 Mg Supp.Rect SC 04/15/23 16:50 DAILY PRN Constipation Carvedilol 25 [...] 16:51 Docusate Enema 283 Mg/5 Ml Enema SC 04/15/23 16:50 DAILY PRN Constipation Ferrous Sulfate [...] equipment to enhance the patient's a functional religion Encourage deep breathing exercises and incentive spirometry [...] Pain control: Tylenol, topical modalities. Minimize opioids. [place] ice. Bowel and bladder: Bowel regimen in place. Skin: Prevent skin breakdown. Monitor operative site. Sleep: Poor sleep reported. Initiate melatonin and trazodone. DVT prophylaxis: Covered with Eliquis. Functional status: Needs assist Discharge planning: Hopefully home in 1 to 2 weeks. Documented By: Tommy Bah Jr, DO 2 1142 Signed By: <Electronically signed by Tommy Bah Jr, DO> 04/22/22 1144 [facility] Work Phone: 1(340) 414-259010-17-2022 Progress note Author Tommy Bah [facility] April 21, 2022 10:46am Note Date/Time April 21, 2022 1 0:44am [facility] [address] [place] [address] Physiatry(Rehab) Progress Note Signed Patient: Al Kuo MR# : [id number] : 1945 Acct:[id number] Age/Sex: 76 / M Adm Date: 2 Loc: Room: [address] [place] [address] Type: ADM IN Attending Dr: Delmer Whyte [...] % (Auto) 83.2 Lymph % (Auto) 5.6 Humphreys % (Auto) 8.5 Eos % (Auto) 2.4 Baso % (Auto) 0.3 Neut # (Auto) 8.7 H Lymph # (Auto) 0.6 L Humphreys # (Auto) 0.9 H Eos # (Auto) [...] Tablet PO 04/15/23 20:59 Not Given BID [facility] Ascorbic Acid 500 mg 04/15/22 17:00 04/21/22 07:46 Ascorbic Acid 500 Mg Tablet PO 04/15/23 16:59 500 mg BID.WITH.MEALS NIKOLAS Administration Bisacodyl 10 mg 04/15/22 16:51 Bisacodyl 10 Mg Supp.Rect SC 04/15/23 16:50 DAILY PRN Constipation Carvedilol 25 mg 04/15/22 21:00 04/21/22 08:20 Carvedilol 25 Mg Tablet PO 04/15/23 20:59 Not Given BID NIKOLAS Cefadroxil 500 mg 04/15/22 21:00 04/21/22 08:21 Cefadroxil 500 Mg Capsule PO 04/22/22 23:59 Not Given BID NIKOLAS Cyanocobalamin 1,000 mcg 04/16/22 09:00 04/21/22 08:21 Cyanocobalamin 1,000 Mcg Tablet PO 04/16/23 08:59 Not Given QAM NIKOLAS Docusate Sodium 100 mg 04/15/22 16:51 04/20/22 06:36 Docusate 100 Mg Capsule PO 04/15/23 16:50 100 mg BID PRN Administration Constipation Docusate Sodium 283 mg 04/15/22 16:51 Docusate Enema 283 Mg/5 Ml Enema SC 04/15/23 16:50 DAILY PRN Constipation Ferrous Sulfate [...] equipment to enhance the patient's a functional religion Encourage deep breathing exercises and incentive spirometry [...] Pain control: Tylenol, topical modalities. Minimize opioids. [place] ice. Bowel and bladder: Bowel regimen in place. Skin: Prevent skin breakdown. Monitor operative site. Sleep: Poor sleep reported. Initiate melatonin and trazodone. DVT prophylaxis: Covered with Eliquis. Functional status: Needs assist Discharge planning: Hopefully home in 1 to 2 weeks. Documented By: Tommy Bah Jr, 2 1041 Signed By: <Electronically signed by Tommy Bah Jr, DO> 04/21/22 [address] [place] Work Phone: [phone] 826-367810-15-2022 Progress note Author Rain Ramos [facility] April 19, 2022 9:32am Note Date/Time April 19, 2022 9 :32am [facility] [address] [place] [address] Hospitalist Progress Note Signed Patient: Al Kuo MR# : [id number] : 1945 Acct:[id number] Age/Sex: 76 / M Adm Date: 2 Loc: Room: [address] [place] [address] Type: ADM IN Attending Dr: Delmer Whyte [...] time and person. Patient is obese HEENT: [place] conjunctiva and NL buccal mucosa Neck: Supple, [...] mg 04/15/22 16:51 Bisacodyl 10 Mg Supp.Rect SC 04/15/23 16:50 DAILY PRN Constipation Carvedilol 25 mg 10/11/22 21:00 04/18/22 22:10 Carvedilol 25 Mg Tablet [...] 16:51 Docusate Enema 283 Mg/5 Ml Enema SC 04/15/23 16:50 DAILY PRN Constipation Ferrous Sulfate [...] PCP and out patient providers to obtain [facility] record entirely to follow up on illnesses, symptoms, abnormal findings that I have and have not addressed during this encounter and hospitalization in out patient setting. Documented By: Rain Ramos MD 04/19/2230 Signed By: <Electronically signed by Rain Ramos MD> 04/19/2232 [facility] Work Phone: 1(122) 368-363010-14-2022 Progress note Author Delmer Whyte [facility] April 18, 2022 3:40pm Note Date/Time April 18, 2022 3 :40pm [facility] [address] [place] [address] Physiatry(Rehab) Progress Note Signed Patient: Al Kuo MR# : [id number] : 1945 Acct:[id number] Age/Sex: 76 / M Adm Date: 2 Loc: Room: [address] [place] [address] Type: ADM IN Attending Dr: Delmer Whyte [...] % (Auto) 85.4 Lymph % (Auto) 5.3 Humphreys % (Auto) 7.9 Eos % (Auto) 1.2 Baso % (Auto) 0.2 Neut # (Auto) 8.2 H Lymph # (Auto) 0.5 L Humphreys # (Auto) 0.8 Eos # (Auto) 0.1 Baso # (Auto) 0.0 Nucleated RBC % (auto) 0.0 Iron TIBC Iron Saturation Transferrin Vitamin B12 Folate Free T4 1.06 TSH 3rd Generation 1.28 Blood Type A Negative Antibody Screen Negative Crossmatch (AHG) See Detail 04/18/22 10:47 Corrected WBC Uncorrected WBC Count RBC Hgb Hct MCV MCH MCHC RDW Plt Count MPV Neut % (Auto) Lymph % (Auto) Humphreys % (Auto) Eos % (Auto) Baso % (Auto) Neut # (Auto) Lymph # (Auto) Humphreys # (Auto) Eos # (Auto) Baso # (Auto) Nucleated RBC % (auto) Iron 23 L TIBC 202 L Iron Saturation 11.0 L Transferrin 144 L Vitamin B12 1866 H Folate 20.3 Free T4 TSH 3rd Generation Blood Type Antibody Screen Crossmatch (AHG) Medications and Allergies Allergies and Active Meds: [...] mg 04/15/22 16:51 Bisacodyl 10 Mg Supp.Rect SC 04/15/23 16:50 DAILY PRN Constipation Carvedilol 25 [...] 16:51 Docusate Enema 283 Mg/5 Ml Enema SC 04/15/23 16:50 DAILY PRN Constipation Ferrous Sulfate [...] equipment to enhance the patient's a functional religion Encourage deep breathing exercises and incentive spirometry [...] Pain control: Tylenol, topical modalities. Minimize opioids. [place] ice. Bowel and bladder: Bowel regimen in place. Skin: Prevent skin breakdown. Monitor operative site. Sleep: Poor sleep reported. Initiate melatonin and trazodone. DVT prophylaxis: Covered with Eliquis. Functional status: Needs assist Discharge planning: Hopefully home in 1 to 2 weeks. I spent greater than 35 minutes for services, including abtt-ee-xbch encounter with the patient, discussion of the case, plan of care, and exam; and bsksidd-gu-stkl activities, such as reviewing pertinent sap portal consultant documentation, recent therapy notes, laboratory and radiology studies, and discussion of case with care team including physician, nursing, onsite case manager, and therapists. More than 50 % of time was spent on patient/family counseling or coordination of care. Documented By: Delmer Whyte MD 04/18/22 1536 Signed By: <Electronically signed by Delmer Whyte MD> 04/18/22 1546 [facility] Work Phone: 1([phone] 395-228810-14-2022 Progress note Author Delmer Whyte [facility] April 18, 2022 12:44pm Note Date/Time April 17, 2022 1 2:09pm [facility] [address] [place] [address] Physiatry(Rehab) Progress Note Signed Patient: Al Kuo MR# : [id number] : 1945 Acct:[id number] Age/Sex: 76 / M Adm Date: 2 Loc: Room: 2M1446-9 Type: ADM IN Attending Dr: Delmer Whyte [...] oriented, calm and cooperative, no acute distress. HENMT Head: normal to inspection Eyes General: [...] 16:50 Q4H PRN Indigestion Allopurinol 300 mg 10/12/22 09:00 04/17/22 08:12 Allopurinol 300 Mg Tablet [...] mg 04/15/22 16:51 Bisacodyl 10 Mg Supp.Rect SC 04/15/23 16:50 DAILY PRN Constipation Carvedilol 25 [...] 16:51 Docusate Enema 283 Mg/5 Ml Enema SC 04/15/23 16:50 DAILY PRN Constipation Ferrous Sulfate [...] PRN Flush Spironolactone 25 mg 04/16/22 09:00 10/13/22 10:19 Spironolactone 25 Mg Tablet PO 04/16/23 [...] equipment to enhance the patient's a functional religion Encourage deep breathing exercises and incentive spirometry [...] Pain control: Tylenol, topical modalities. Minimize opioids. [place] ice. Bowel and bladder: Bowel regimen in place. Skin: Prevent skin breakdown. Monitor operative site. Sleep: Poor sleep reported. Initiate melatonin and trazodone. DVT prophylaxis: Covered with Eliquis. Functional status: Needs assist Discharge planning: Hopefully home in 1 to 2 weeks. I spent greater than 25 minutes for services, including aeba-rd-ukbi encounter with the patient, discussion of the case, plan of care, and exam; and cmvlyjq-fx-nnbr activities, such as reviewing pertinent sap portal consultant documentation, recent therapy notes, laboratory and radiology studies, and discussion of case with care team including physician, nursing, onsite case manager, and therapists. More than 50 [...] Pain control: Tylenol, topical modalities. Minimize opioids. [place] ice. Bowel and bladder: Bowel regimen in place. Skin: Prevent skin breakdown. Monitor operative site. Sleep: Poor sleep reported. Initiate melatonin and trazodone. DVT prophylaxis: Covered with Eliquis. Functional status: Needs assist Discharge planning: Hopefully home in 1 to 2 weeks. I spent greater than 25 minutes for services, including qwrp-mx-hhkl encounter with the patient, discussion of the case, plan of care, and exam; and ilihodo-tn-gxnd activities, such as reviewing pertinent sap portal consultant documentation, recent therapy notes, laboratory and radiology studies, and discussion of case with care team including physician, nursing, onsite case manager, and therapists. More than 50 % of time was spent on patient/family counseling or coordination of care. Plan: I reviewed the history and the relevant portions of the chart, including current orders, allied health and sap portal consultant notes, labs/imaging and plan of care as above. Documented By: Lillianjaylene Harris APRN 04/17/22 1 207 Signed By: <Electronically signed by QUYNH Harris> 04/17/22 1245 <Electronically signed by Delmer Whyte MD> 04/18/22 1244 [facility] Work Phone: 1([phone] 333-143310-14-2022 Progress note Author Rain Ramos [facility] April 18, 2022 11:25am Note Date/Time April 18, 2022 1 1:25am [facility] [address] [place] [address] Hospitalist Progress Note Signed Patient: Al Kuo MR# : [id number] : 1945 Acct:[id number] Age/Sex: 76 / M Adm Date: 2 Loc: Room: [address] [place] [address] Type: ADM IN Attending Dr: Delmer Whyte [...] time and person. Patient is obese HEENT: [place] conjunctiva and NL buccal mucosa Neck: Supple, [...] mg 04/15/22 16:51 Bisacodyl 10 Mg Supp.Rect SC 04/15/23 16:50 DAILY PRN Constipation Carvedilol 25 [...] Administration Docusate Sodium 100 mg 04/15/22 16:51 10/12/22 21:49 Docusate 100 Mg Capsule PO 04/15/23 16:50 100 mg BID PRN Administration Constipation Docusate Sodium 283 mg 04/15/22 16:51 Docusate Enema 283 Mg/5 Ml Enema SC 04/15/23 16:50 DAILY PRN Constipation Ferrous Sulfate [...] PCP and out patient providers to obtain [facility] record entirely to follow up on illnesses, symptoms, abnormal findings that I have and have not addressed during this encounter and hospitalization in out patient setting. Documented By: Rain Ramos MD 04/18/221121 Signed By: <Electronically signed by Rain Ramos MD> 04/18/22 1126 [facility] Work Phone: [phone] Progress note Author Rain Ramos [facility] April 17, 2022 9:55am Note Date/Time April 17, 2022 9 :52am [facility] [address] [place] [address] Hospitalist Progress Note Signed Patient: Al Kuo MR# : [id number] : 1945 Acct:[id number] Age/Sex: 76 / M Adm Date: 2 Loc: 5T Room: 9L4218-1 Type: ADM IN Attending Dr: Delmer Whyte [...] time and person. Patient is obese HEENT: [place] conjunctiva and NL buccal mucosa Neck: Supple, [...] mg 04/15/22 16:51 Bisacodyl 10 Mg Supp.Rect SC 04/15/23 16:50 DAILY PRN Constipation Carvedilol 25 [...] 16:51 Docusate Enema 283 Mg/5 Ml Enema SC 04/15/23 16:50 DAILY PRN Constipation Ferrous Sulfate [...] PCP and out patient providers to obtain [facility] record entirely to follow up on illnesses, symptoms, abnormal findings that I have and have not addressed during this encounter and hospitalization in out patient setting. Documented By: Rain Ramos MD 04/17/22 0951 Signed By: <Electronically signed by Rain Ramos MD> 04/17/22 0932 [facility] Work Phone: 1([phone] 271-276610-13-2022 Consult note Author Rain Ramos [facility] April 17, 2022 7:40am Note Date/Time April 16, 2022 6 :10pm [facility] [address] [place] [address] Hospitalist Consult Note Signed Patient: Al Kuo MR# : [id number] : 1945 Acct:[id number] Age/Sex: 76 / M Adm Date: 2 Loc: Room: [address] [place] [address] Type: ADM IN Attending Dr: Delmer Whyte MD Copies to: MD Delmer Waldron MD Lynn A Stackhouse, ANP-BC Rain Ramos MD~ HPI DATE OF CONSULTATION: [...] negative unless noted below or in HPI [facility] Attestation Statement: The following information was validated [...] mg 04/15/22 16:51 Bisacodyl 10 Mg Supp.Rect SC 04/15/23 16:50 DAILY PRN Constipation Carvedilol 25 [...] 16:51 Docusate Enema 283 Mg/5 Ml Enema SC 04/15/23 16:50 DAILY PRN Constipation Ferrous Sulfate [...] 50 Mg Tablet PO 04/16/23 21:59 QHS NIKOLAS Vitamin D 125 mcg 04/16/22 09:00 04/16/22 [...] 2 1800 Signed By: <Electronically signed by FLETCHER-ALLYN Archuleta> 04/16/22 1812 <Electronically signed by Rain Ramos MD> 04/17/22 0740 [facility] Work Phone: [phone] 666-425910-12-2022 History and physical note Author Delmer Whyte [facility] April 16, 2022 3:15pm Note Date/Time April 16, 2022 1 0:07am [facility] [address] [place] [address] Physiatry (Rehab) H&P Signed Patient: Al Kuo MR# : [id number] : 1945 Acct:[id number] Age/Sex: 76 / M Adm Date: 2 Loc: Room: [address] [place] [address] Type: ADM IN Attending Dr: Delmer Whyte [...] fibrillation, gout are stable with current management. [facility] Attestation Statement: The following information was validated [...] 300 Mg Tablet) 300 mg PO QAM [facility] Stop: 04/16/23 08:59 Amlodipine Besylate (Amlodipine 10 [...] Bisacodyl (Bisacodyl 10 Mg Supp.Rect) 10 mg SC DAILY PRN PRN Reason: Constipation Stop: 04/15/23 16:50 Carvedilol (Carvedilol 25 Mg Tablet) 25 mg PO BID NIKOLAS Stop: 04/15/23 20:59 Last Admin: 04/15/22 21:39 Dose: 25 mg Cefadroxil (Cefadroxil 500 Mg Capsule) 500 mg PO BID [facility] Stop: 04/22/22 23:59 Last Admin: 04/15/22 21:39 Dose: 500 mg Cyanocobalamin (Cyanocobalamin 1,000 Mcg Tablet) 1,000 mcg PO QAM [facility] Stop: 04/16/23 08:59 Docusate Sodium (Docusate 100 Mg Capsule) 100 mg PO BID PRN PRN Reason: Constipation Stop: 04/15/23 16:50 Docusate Sodium (Docusate Enema 283 Mg/5 Ml Enema) 283 mg SC DAILY PRN PRN Reason: Constipation Stop: 04/15/23 16:50 Ferrous Sulfate (Ferrous Sulfate 324 Mg Tablet.Dr) 324 mg PO Q48H [facility] Stop: 04/16/23 09:59 Folic Acid (Folic Acid 1 Mg Tablet) 1 mg PO DAILY [facility] Stop: 04/16/23 08:59 Hydralazine HCl (Hydralazine 50 Mg Tablet) 100 mg PO BID NIKOLAS Stop: 04/15/23 20:59 Last Admin: 04/15/22 21:38 Dose: 100 mg Lactulose (Lactulose 20 Gm/30 Ml Udc) 30 gm PO DAILY PRN PRN Reason: Constipation Stop: 04/15/23 16:50 Lisinopril (Lisinopril 40 Mg Tablet) 40 mg PO QAM [facility] Stop: 04/16/23 08:59 Ondansetron HCl (Ondansetron [...] 25 Mg Tablet) 25 mg PO QAM [facility] Stop: 04/16/23 08:59 Trazodone HCl (Trazodone 50 Mg Tablet) 50 mg PO QHS [facility] Stop: 04/16/23 21:59 Vitamin D (Cholecalciferol 125 Mcg (5,000 Units) Capsule) 125 mcg PO DAILY NIKOLAS Stop: 04/16/23 08:59 Exam Physical Exam Vital Signs: Temp Pulse Resp BP Pulse Ox O2 Del Method 98.5 F 78 18 120/55 L 94 L Room Air 04/16/22 05:53 04/16/22 05:53 04/16/22 05:53 04/16/22 05:53 04/16/22 05:53 04/16/22 05:53 Narrative: General: cooperative, comfortable HENMT Head: normal [...] 10 days Expected Discharge Destination: [facility]: Primary Diagnosis:Right total knee arthroplasty; morbid obesity [...] 24 hour daily monitoring and intervention from Info Print Press Operator as well as other consulting physicians including internal medicine as well as 24 hour daily prop worker nursing - for medical safe / optimal [...] equipment to enhance the patient's a functional religion Encourage deep breathing exercises and incentive spirometry [...] Pain control: Tylenol, topical modalities. Minimize opioids. [place] ice. Bowel and bladder: Bowel regimen in place. Skin: Prevent skin breakdown. Monitor operative site. Sleep: Poor sleep reported. Initiate melatonin and trazodone. DVT prophylaxis: Covered with Eliquis. Functional status: Needs assist Discharge planning: Hopefully home in 1 to 2 weeks. Documented By: Delmer Whyte MD 04/16/22 1006 Signed By: <Electronically signed by Delmer Whyte MD> 04/16/22 [facility]5 [facility] Work Phone: 1(244) 491-990910-12-2022 Progress note Author Andrea Govea [facility] April 16, 2022 1:47pm Note Date/Time April 16, 2022 1 :47pm [facility] [address] [place] [address] Orthopedic Progress Note Signed Patient: Al Kuo MR# : [id number] : 1945 Acct:[id number] Age/Sex: 76 / M Adm Date: 2 Loc: Room: 3Z7964-4 Type: ADM IN Attending Dr: Delmer Whyte [...] <Electronically signed by Andrea Govea MD> 04/16/22 [address] [place] Work Phone: 1(348) 787-207210-11-2022 Progress note Author Andrea Govea [facility] April 15, 2022 7:45am Note Date/Time April 15, 2022 7 :45am [facility] [address] [place] [address] Orthopedic Progress Note Signed Patient: Al Kuo MR# : [id number] : 1945 Acct:[id number] Age/Sex: 76 / M Adm Date: 2 Loc: Room: [address] [place] [address] Type: [facility] Attending Dr: Andrea Govea II, MD Copies to: ~ Date of [...] 83.0 91.6 Lymph % (Auto) 6.6 3.5 Humphreys % (Auto) 7.8 4.8 Eos % (Auto) 2.2 0.0 Baso % (Auto) 0.4 0.1 Neut # (Auto) 7.5 11.1 H Lymph # (Auto) 0.6 L 0.4 L Humphreys # (Auto) 0.7 0.6 Eos # (Auto) [...] MPV Neut % (Auto) Lymph % (Auto) Humphreys % (Auto) Eos % (Auto) Baso % (Auto) Neut # (Auto) Lymph # (Auto) Humphreys # (Auto) Eos # (Auto) Baso # [...] signed by Andrea Govea MD> 04/15/22 0745 [facility] Work Phone: 1(642) 220-677810-10-2022 Consult note Author Tonya Mcgregor [facility] April 14, 2022 7:53pm Note Date/Time April 14, 2022 7 :51pm [facility] [address] [place] [address] Hospitalist Consult Note Signed with Addenda Patient: Al Kuo MR# : [id number] : 1945 Acct:[id number] Age/Sex: 76 / M Adm Date: 2 Loc: 4N Room: 8N9894-7 Type: [facility] Attending Dr: Andrea Govea II, MD Copies to: MD Tonya Waldron DO Robert M Carlisle, MD~ ADDENDUM1 Addendum: Hypertension: Continue home medications [...] History (Updated 04/14/22 @ 19:45 by Tonya Balbir, DO) Atrial fibrillation Colon cancer Edema Gout [...] Tablet PO 04/14/23 10:44 1,000 mg Q8H [facility] Administration Allopurinol 300 mg 04/15/22 09:00 Allopurinol 300 Mg Tablet PO 04/15/23 08:59 QAM [facility] Amlodipine Besylate 10 mg 04/15/22 09:00 Amlodipine 10 Mg Tablet PO 04/15/23 08:59 DAILY [facility] Apixaban 5 mg 04/14/22 21:00 Apixaban 5 Mg Tablet PO 04/14/23 20:59 BID [facility] Ascorbic Acid 500 mg 04/14/22 17:00 04/14/22 18:47 Ascorbic Acid 500 Mg Tablet PO 04/14/23 16:59 Not Given BID.WITH.MEALS [facility] Carvedilol 25 mg 04/15/22 08:00 Carvedilol 25 Mg Tablet PO 04/15/23 07:59 BID.WITH.MEALS [facility] Cefadroxil 500 mg 04/15/22 21:00 Cefadroxil 500 Mg Capsule PO 04/22/22 09:01 BID [facility] Diphenhydramine HCl 25 mg 04/14/22 10:40 Diphenhydramine 25 Mg Capsule PO 04/14/23 10:39 HS PRN Insomnia Diphenhydramine HCl 25 mg 04/14/22 10:40 Diphenhydramine 25 Mg Capsule PO 04/14/23 10:39 Q6H PRN Itching Ferrous Sulfate 324 mg 04/14/22 17:00 04/14/22 18:47 Ferrous Sulfate 324 Mg Tablet.Dr PO 04/14/23 16:59 Not Given BID.WITH.MEALS [facility] Hydralazine HCl 100 mg 04/14/22 21:00 Hydralazine 50 Mg Tablet PO 04/14/23 20:59 BID [facility] Lactated Ringer's 1,000 mls @ 20 mls/hr 04/14/22 08:59 04/14/22 17:28 Lactated Ringers IV 04/15/22 08:58 20 mls/hr .Q24H ONE Infusion Lactated Ringer's 1,000 mls @ 75 mls/hr 04/14/22 10:45 04/14/22 18:47 Lactated Ringers IV 04/14/23 10:44 75 mls/hr .[id number] NIKOLAS Administration Cefazolin Sodium 1 gm in 50 mls @ 100 mls/hr 04/15/22 00:30 Ancef IV 04/15/22 08:59 Q8H NIKOLAS Lisinopril 40 mg 04/15/22 09:00 Lisinopril 40 Mg Tablet PO 04/15/23 08:59 QAM NIKOLAS Mineral Oil 1 each 04/17/22 10:40 Mineral Oil (Sauk) 1 Each Enema SC ONCE PRN Constipation Morphine Sulfate 15 mg [...] Chloride 0.9 % 10 Ml Syringe IV-PUSH 10/10/23 13:59 10 ml QSHIFT NIKOLAS Administration Spironolactone 25 mg 04/15/22 09:00 Spironolactone 25 Mg Tablet PO 04/15/23 08:59 QAM [facility] Tramadol HCl 50 mg 04/14/22 10:40 Tramadol 50 Mg Tablet PO 10/11/22 10:39 Q4H PRN Pain Scale 1 - 5 Vitamin D 125 mcg 04/15/22 09:00 Cholecalciferol 125 Mcg (5,000 Units) Tablet PO 04/15/23 08:59 DAILY [facility] Exam Physical Exam Vital Signs: Temp Pulse [...] % (Auto) 83.0, Lymph % (Auto) 6.6, Humphreys % (Auto) 7.8, Eos % (Auto) 2.2, Baso % (Auto) 0.4, Neut # (Auto) 7.5, Lymph # (Auto) 0.6 L, Humphreys # (Auto) 0.7, Eos # (Auto) 0.2, [...] <Electronically signed by Tonya Mcgregor DO> 04/14/221950 [facility] Work Phone: 1(121) 842-413509-30-2022 Evaluation note* Encounter Date Diagnosis Assessment Notes [...] patient could proceed with surgery safely. The education manager was vital for surgery timing and [...] surgery. Prolonged services time spent: 37 minutes [employer] Other 08-05-2022 Evaluation note* Encounter Date Diagnosis Assessment Notes Treatment Notes Treatment Clinical Notes Feb, Arthritis of right knee (ICD-10 - M17.11) [employer] Other 07-29-2022 Evaluation note* Encounter Date Diagnosis [...] Patient will obtain preop clearances including: -PCP -[employer] Senior [employer] 4. Once our office has reviewed the [...] or absent clearances could delay their surgery. [employer] [facility] Other 05-27-2022 Evaluation note* Encounter Date Diagnosis Assessment Notes Treatment Notes Treatment Clinical Notes November, Arthritis of right knee (ICD-10 - M17.11) November, Lymphedema (ICD-10 - I89.0) November, Other 1. We had a leland g discussion with the patient today concerning [...] times a day. 3. NSAIDs: Recommended continued [id number] oral anti-inflammatories. 4. Physical therapy: Discussed formal [...] the lymphedema. 7. Follow-up in 2 months [employer] Other 01-07-2022 NotePROCEDURE: XR KNEE RT 4V [...] Electronically authenticated by: YURI PATEL Date: 2021-07-12 11:53[facility] Delmer Whyte [facility] May 27, 2023 1:32pm Note Date/Time May 27, 2023 8:50am [facility] [address] [place] [address] Discharge Summary Signed Patient: Al Kuo MR# : [id number] : 1945 Acct:[id number] Age/Sex: 77 / M Adm Date: 3 Loc: Room: 6G2501-[address]: Delmer Whyte MD Copies to: [...] You will have Outpatient Physical Therapy at [facility] ( ). The order has already been [...] oil [Fleet Mineral Oil] Enema 1 ea SC ONCE PRN (Reason: Constipation) 0RF bisacodyl 5 [...] signed by Delmer Whyte MD> 05/27/23 [address] [place] Work Phone: evaluation + Plan note Future Appointments Appointment Date:07/07/2023 01:40:00 PM Scheduled Provider:John BARTLETT MD Location:[facility] Appointment Type: Procedure 30 General Surgery [place] Evaluation + Plan note Future Appointments Appointment Date:07/22/2023 01:40:00 PM Scheduled Provider:John BARTLETT MD Location:[facility] Appointment Type: Established 15 General Surgery [place] evaluation noteNo assessment information available [place] Work Phone: evaluation note* Diagnosis Onset Date Resolution Status Gout acute Hyperlipidemia acute Hypertension acute TATIANA (obstructive sleep apnea) acute Osteoarthritis acute Status post right knee replacement acute [place] Work Phone: evaluation note* Diagnosis Onset Date [...] acute Status post right knee replacement acute [place] Work Phone: Evaluation noteNo InformationNortNew [facility] [employer] Other Evaluation note* Diagnosis Onset Date Resolution Status Atrial [...] acute Status post left knee replacement acute [place] Work Phone: Evaluation note* Diagnosis Permanent atrial fibrillation (Multi)- Primary Atrial fibrillation Essential hypertension Unspecified essential hypertension Sinus bradycardia Other specified cardiac dysrhythmias Pulmonary hypertension (Multi) Other chronic pulmonary heart diseases LVH (left ventricular hypertrophy) Cardiomegaly Anticoagulated Encounter for long-term (current) use of anticoagulants Obstructive sleep apnea syndrome Obstructive sleep apnea (adult) (pediatric) Former smoker Personal history of tobacco use, presenting hazards to health BMI 40.0-44.9, adult (Multi) documented in this encounter [facility] Work Phone: History general Narrative - Reported* Type Description Date Medical History high blood pressure Medical History high cholesterol Medical History afib Surgical History colon X 2 Surgical History lumbar surgery [facility] [employer] Other History of Present illness Narrative* The patient states he has been generally doing well since the last visit. Comorbid Illnesses: hypertension. * Symptoms: denies chest pain at rest, denies exertional chest pain, denies dyspnea, denies fatigue, stable exercise intolerance, denies palpitations, denies edema, denies orthopnea, denies dizziness and denies orthostatic dizziness. * Disease Monitoring: -[facility] 250 DO Work Phone: History of [...] with heart rate control and anticoagulation strategy [facility] 250 DO Work Phone: History of [...] to him to restrict his salt intake [facility] 250 DO Work Phone: History of [...] extremity Doppler done in the past at [place] and it was negative for DVT and the patient is on chronic anticoagulation * 6. Patient brought copy of his lab work which demonstrated a little bit elevated C-reactive proteinwhich I indicated to him that it can indicate increased risk of heart disease and discussed with him at length primary prevention-7. [facility] Work Phone: History of Present [...] extremity Doppler done in the past at [place] and it was negative for DVT and [...] length primary prevention-7. Follow-up in 6 months [facility] 320 DO Work Phone: Hospital course Narrative No data available for this section [facility] Discharge instructions Additional Instructions Rehab to manage - Full Code - Ortho assessment per routine - Keep wound vac in place for 14days then remove and maintain dressing - Joint Replacement [place] Work Phone: Hospital Discharge instructionsAmbulatory Orders* Initiate [...] knees or thigh high KARL hose. -Diet: Regular.[place] Work Phone: Hospital Discharge instructions Additional Instructions [...] You will have Outpatient Physical Therapy at [facility] ( ). The order has already been [...] office to inform them prior to your appointment.[place] Work Phone: Hospital Discharge instructions No data available for this section General Surgery [place] Progress note No data available for this section General Surgery [place] Chief Complaint * I am doing well * AL KUO is being seen for a 6 week follow-up of hypertension. * Patient presents to [facility] for cardiovascular evaluation. * Patient is ambulatory [...] Recorded Date/ Time Advance Directives No October 22, 019 3:56pm Advance Directive Response Recorded Date/ Time Advance Directives No October 22 019 2:56pm Summary Purpose Additional Source Comments REASON FOR VISIT (unrecogniz ed section and content) Reason Comments Follow-up 8m Specialty Diagnoses / Procedures Referred By Mary Grace t Referred To Contact Cardiology Diagnoses Permanent atrial fibrillation (Multi) Essential hypertension Sinus bradycardia Procedures Follow Up In Cardiology Jammie Velasquez MD [address] [place] [address], [address] [address] Phone: tel: fax: Jammie Velasquez MD [address] [place] [address] 2, [address] [address] Phone: tel: fax: Referral ID Status Reason Start Date Expiration Date V isits Requested Visits Authorized [id number] Authorized 08/18/2023 08/17/2024 1 1 Care Teams (unrecognized sec tion and content) Team Status: Active Member Role Status Dates Real Dodd MD Primary Care Provider Active Team Status: Inactive Member Role Status Valentín Dodd MD Primary Care Provider Active Andrea Govea II, MD Attending Provider Active Team Status: Inactive Member Role Status Valentín Dodd MD Primary Care Provider, Attending Mohan roberson Active Team Status: Active Member Role Status [...] , CARTER Other Provider Active Yeny Alvarez RN Other Provider Active Orly Rm RN Other Provider Active Derrick Matos MD Other Provider Active Kimmy Wong , DIALYSIS REGISTERED NURSE Other Provider Active Bandar Caro , DO [...] MD Other Provider Active Priscilla Bennett , DISTRIBUTION WAREHOUSE MANAGER-C Other Provider Active Shar Kahn MD Other Provider Active Evin Silver MD Other Provider Active Lilian Shrestha MD Other Provider Active Tarun Bateman MD Other Provider Active Tonya Mcgregor , DO Other Provider Active Jennifer Carrillo MD Other Provider Active Paco Kim , DO Other Provider Active Saúl Funk , DO Other Provider Active Binduluis antonio Zabala , DIALYSIS REGISTERED NURSE Other Provider Active Jimenez Bran , DO Other Provider Active Watson Ryan MD Other Provider Active Norma Talamantes , CARTER Other Provider Active Team Status: Inactive Member Role Status Valentín Dodd MD Primary Care Provider Active Delmer Whyte MD Admit Provider, Attending Provider A ctive Basilia Adams , CARTER Other Provider Active Annette Young , CARTER Other Provider Active Lala Elizondo , RN Other Provider Active Rebeka Argueta , RN Other Provider Active Yeny Alvarez RN Other Provider Active Orly Rm , RN Other Provider Active Rain Ramos MD Other Provider Active Derrick Matos MD Other Provider Active Kimmy Wong DIALYSIS REGISTERED NURSE Other Provider Active Bandar Caro , DO [...] MD Other Provider Active Priscilla Bennett , DISTRIBUTION WAREHOUSE MANAGER-C Other Provider Active Shar Kahn MD Other Provider Active Evin Silver MD Other Provider Active Lilian Shrestha MD Other Provider Active Tarun Bateman MD Other Provider Active Tonya Mcgregor , DO Other Provider Active Jennifer Carrillo MD Other Provider Active Paco Kim , DO Other Provider Active Saúl Funk , DO Other Provider Active Bindu Zabala APRN Other Provider Active Jimenez Bran , DO Other Provider Active Watson Ryan MD Other Provider Active Norma Talamantes RN Other Provider Active Team Status: Inactive Member Role Status Valentín Dodd MD Primary Care Provider Active Andrea Govea II, MD Attending Provider Active Basilia Adams , CARTER Other Provider Active Annette Young RN Other Provider Active Lala Elizondo , CARTER Other Provider Active Rebeka Argueta , CARTER Other Provider Active Yeny Alvarez RN Other Provider Active Orly Rm RN Other Provider Active Rain Ramos MD Other Provider Active Kimmy Wong , DIALYSIS REGISTERED NURSE Other Provider Active Bandar Caro , DO Other Provider Active Butch Ballard MD Other Provider Active Cruz Phipps , DO Other Provider Active Taiwo Guy MD Other Provider Active Katy Irvin MD Other Provider Active Bernadette Carr , DIALYSIS REGISTERED NURSE Other Provider Active Carol Carias MD Other Provider Active Roel Macedo MD Other Provider Active Dotty Benson MD Other Provider Active Phyllis Medellin MD Other Provider Active John Hall , DO Other Provider Active Familia Dos Santos MD Other Provider Active Zach Leavitt MD Other Provider Active Priscilla Bennett , DISTRIBUTION WAREHOUSE MANAGER-C Other Provider Active Shar Kahn MD Other Provider Active Evin Silver MD Other Provider Active Sabas Kc MD Other Provider Active Tarun Bateman MD Other Provider Active Tonya Mcgregor , DO Other Provider Active Paco Kim , DO Other Provider Active Saúl Funk , DO Other Provider Active Bindu Zabala , DIALYSIS REGISTERED NURSE Other Provider Active Jimenez Bran , DO Other Provider Active Watosn Ryan MD Other Provider Active Gerda Collins , DIALYSIS REGISTERED NURSE Other Provider Active Marilee Platt , DIALYSIS REGISTERED NURSE Other Provider Active Bianca Banuelos MD Other Provider Active Colby Acosta MD Other Provider Active Teo Ennis , DO Other Provider Active Amy Narayanan , DIALYSIS REGISTERED NURSE Other Provider Active Sheila Bañuelos , DO Other Provider Active Norma Talamantes , CARTER Other Provider Active Delmer Whyte MD Other Provider Active Team Status: Inactive Member Role Status Dates Real Dodd MD Primary Care Provider Active Delmer Whyte MD Admit Provider, Attending Provider A ctive Basilia Adams , CARTER Other Provider Active Annette Young , RN Other Provider Active Lala Elizondo , RN Other Provider Active Rebeka Argueta , RN Other Provider Active Yeny Alvarez , CARTER Other Provider Active Orly Rm , CARTER Other Provider Active Rain Ramos MD Other Provider Active Kimmy Wong , DIALYSIS REGISTERED NURSE Other Provider Active Bandar Caro , DO Other Provider Active Butch Ballard MD Other Provider Active Cruz Phipps , DO Other Provider Active Taiwo Guy MD Other Provider Active Katy Irvin MD Other Provider Active Bernadette Carr , DIALYSIS REGISTERED NURSE Other Provider Active Carol Carias MD Other Provider Active Roel Macedo MD Other Provider Active Dotty Benson MD Other Provider Active Phyllis Medellin MD Other Provider Active John Hall , DO Other Provider Active Familia Dos Santos MD Other Provider Active Zach Leavitt MD Other Provider Active Priscilla Bennett , DISTRIBUTION WAREHOUSE MANAGER-C Other Provider Active Shar Kahn MD Other Provider Active Evin Silver MD Other Provider Active Sabas Kc MD Other Provider Active Tarun Bateman MD Other Provider Active Tonya Mcgregor , DO Other Provider Active Paco Kim , DO Other Provider Active Saúl Funk , DO Other Provider Active Bindu Zabala , DIALYSIS REGISTERED NURSE Other Provider Active Jimenez Bran , DO Other Provider Active Watson Ryan MD Other Provider Active Gerda Collins , DIALYSIS REGISTERED NURSE Other Provider Active Marilee Platt , DIALYSIS REGISTERED NURSE Other Provider Active Bianca Banuelos MD Other Provider Active Colby Acosta MD Other Provider Active Amy Narayanan , DIALYSIS REGISTERED NURSE Other Provider Active Sheila Bañuelos , DO Other Provider Active Norma Talamantes RN Other Provider Active [employer] Sports Coach Relationship Specialty Start Date End Date Real Dodd MD [address] [place] [address] PCP - General 02/08/19 Goals (unrecognized section and content) Goals may be documented in a n alternate section (unrecognized sect ion and content) No Status Records FoundNo Status Records FoundNo Status Records FoundNo Status Records FoundNo Status Records FoundNo Status Records FoundNo Status Records FoundNo Status Records Found INFORMATION SOURCE (unrecogn ized section and content) DATE CREATED AUTHOR 04/11/2022 [facility] DATE CREATED AUTHOR AUTHOR'S ORGANIZ ATION 01/23/2023 [facility] DATE CREATED AUTHOR AUTHOR'S ORGANIZ ATION 02/04/2023 [facility] DATE CREATED AUTHOR AUTHOR'S ORGANIZ ATION 02/04/2023 [facility] DATE CREATED AUTHOR AUTHOR'S ORGANIZ ATION 06/19/2023 [facility] EPIC DATE CREATED AUTHOR AUTHOR'S ORGANIZ ATION 07/09/2023 [facility] DATE CREATED AUTHOR AUTHOR'S ORGANIZ ATION 07/15/2023 [facility] DATE CREATED AUTHOR AUTHOR'S ORGANIZ ATION 04/29/2024 [facility] FOR RECORDS PERTAINING TO PATIENTS WHO ARE [...] BE BASED ON THE PRIMARY CLINICAL RECORDS. [facility] [employer] provides no warranty or guarantee of the accuracy or completeness of information in this document.
[2024-07-20 14:29] LABS: Basophils Absolute Auto 0.1 10^3/uL (0.0-0.1); Basophils Percent Auto 0.4 % (0.2-2.0); Eosinophils Absolute Auto 0.4 10^3/uL (0.0-0.7); Eosinophils Percent Auto 3.4 % (0.9-7.0); Hematocrit 38.7 % (42.0-54.0); Hemoglobin 13.3 g/dL (14.0-18.0); Immature Granulocytes Abs Auto 0.05 10^3/uL (0.00-0.03); Immature Granulocytes Pct Auto 0.4 % (0.0-0.5); Lymphocytes Absolute Auto 1.3 10^3/uL (1.2-3.8); Lymphocytes Percent Auto 10.8 % (20.5-60.0); Mean Corpuscular HGB Conc 34.4 g/dL (29.9-35.2); Mean Corpuscular Hemoglobin 35.6 pg (25.9-34.0); Mean Corpuscular Volume 103.5 fL (80.0-94.0); Mean Platelet Volume 9.9 fL (9.5-13.5); Monocytes Absolute Auto 0.7 10^3/uL (0.3-0.8); Monocytes Percent Auto 5.6 % (1.7-12.0); Neutrophils Absolute Auto 9.4 10^3/uL (1.4-6.5); Neutrophils Percent Auto 79.4 % (43.0-75.0); Platelet Count 142 10^3/uL (150-450); Red Blood Count 3.74 10^6/uL (4.70-6.10); White Blood Count 11.9 10^3/uL (4.0-11.0)
[2024-07-20 14:51] LABS: BUN Creatinine Ratio 12.8; Calcium 9.5 mg/dL (8.5-10.1); Carbon Dioxide 35.1 mmol/L (21.0-32.0); Chloride 103 mmol/L (98-107); Chol HDL Ratio 4.1; Cholesterol 202 mg/dL (<=200); Estimated GFR (African America 55 (>=60 mL/min/1.73m^2); Estimated GFR (Non-African Ame 45 (>=60 mL/min/1.73m^2); Glucose 133 mg/dL (74-106); HDL Cholesterol 49 mg/dL (40-60); Potassium 4.1 mmol/L (3.5-5.1); Sodium 143 mmol/L (136-145); Triglycerides 94 mg/dL (<=150); VLDL CHOLESTEROL 18.8 mg/dL
== END 2024-07-20 13:48 | disposition home or self-care (01) ==
LOC: LAB 13:58
PROVIDERS: PCP Family Medicine; Visit Provider Internal Medicine Cardiovascular Disease
DX: I48.21 Permanent atrial fibrillation (principal); I10 Essential (primary) hypertension
CPT/HCPCS: 36415; 80048; 80061; 85025

== ENCOUNTER 2024-07-25 11:39 | Outpatient (OUT) | payer OTHER, SELFPAY ==
--- OUTSIDE RECORDS SUMMARY | 2024-07-25 11:55 | XMS_ITS | CCD ---
Author Organization [facility] ion Partnership [facility] Care Team Providers Care Sugar Refinery Supervisor Name Role Phone Real Dodd Unavailable Unavailable Unavailable Andrea Govea II Unavailable MD Real Dodd Primary Care Provider [phone] MD Real Dodd Attending Provider MD Andrea Govea II Attending Provider DR REAL DODD Consulting Unavailable JU, DR [...] JU, DR NOBLE Primary Care Unavailable DR YURI PATEL Consulting [...] Provider MD Carol Carias Other Provider MD oRel Macedo Other Provider MD Dotty Benson Other Provider MD Phyllis Medellin Other Provider DO John Hall Other Provider [phone] MD Rodger Loyd Other Provider MD Familia Dos Santos Other Provider MD Zach Leavitt Other Provider Donald, TRIBUNAL MEMBER-C Priscilla Riley Other Provider MD Shar Kahn Other Provider MD Evin Silver Other Provider MD Lilian Shrestha Other Provider MD Tarun Bateman Other Provider DO Tonya Mcgregor Other Provider MD Jennifer Barry Other Provider DO Paco Kim Other Provider DO Saúl Funk Other Provider QUYNH Zabala Other Provider DO Jimenez Bran Other Provider [phone] MD Watson Ryan Other Provider [phone] CARTER Talamantes Other [...] Unavailable MD Rain Ramos Other Provider Marvin, SHUFFLE BOARD OPERATOR Kimmy Soliz Other Provider [phone] DO Bandar Caro Other Provider MD Butch Ballard Other Provider DO Cruz Phipps Other Provider MD Taiwo Guy Other Provider MD Katy Irvin Other Provider QUYNH Carr Other Provider MD Carol Carias Other Provider MD Roel Macedo Other Provider MD Dotty Benson Other Provider MD Phyllis Medellin Other Provider DO John Hall Other Provider MD Familia Dos Santos Other Provider MD Zach Leavtit Other Provider KARLA Bennett-Marina Riley Other Provider MD Shar Kahn Other Provider MD Evin Silver Other Provider MD Sabas Kc Other Provider MD Tarun Bateman Other Provider DO Tonya Mcgregor Other Provider DO Paco iKm Other Provider DO Saúl Funk Other Provider [...] Admit Provider MD Delmer Whyte Attending Provider [phone] JANES LEON Attending Unavailable Real Dodd Primary Care Physician MD Real Dodd Primary Care Provider [phone] MD Andrea Govea II Attending Provider Jeferson OROZCO, Andrea Soliz Attending Unavailabl e Tie Siding II, Andrea Soliz Admitting Unavailabl e HoReal lizarraga Primary Care Unavailable Tie Siding II, Andrea Soliz Admitting Unavailabl e Tie Siding II, Andrea Soliz Attending Unavailabl e Real Dodd Primary Care Unavailable Jeferson II, Andrea Soliz Admitting Unavailabl e Real Dodd Primary Care Unavailable Jeferson OROZCO, Andrea Soliz Attending Unavailabl e Jeferson II, Andrea Soliz Admitting Unavailabl e Tie Siding II, Andrea Soliz Attending Unavailabl e Real Dodd Primary Care Unavailable Jeferson II, Andrea Soliz Admitting Unavailabl e Tie Siding II, Andrea Soliz Attending Unavailabl e Real [...] Unavailable Real Dodd MD Primary Care Provider JAMMIE VELASQUEZ Attending Unavailable REAL DODD Primary Care Unavailable JAMMIE VELASQUEZ Attending Unavailable JAMMIE VELASQUEZ Referring Unavailable REAL DODD Primary Care Unavailable Allergies Allergy Classification Reported Allergen(s) Allergy Type Date of Onset Reaction(s) Facility (6 sources) Triamcinolone; Translations: [triamcinolone topical] Drug Allergy 02-25-2023 Anaphylaxis (disorder), Anaphylaxis [facility] [place] Medications Current Medications Medication Drug Class(es) Dates [...] Start: 03-26-2022 take 2 tablets by mo [facility] every eight hours for pain Acetaminophen [...] 2022 1:02pm take 1 capsule by mo [facility] once daily Vitamin C 500 MG Oral [...] Active docusate sodium 50 mg / sennosides, skilled nursing 8.6 mg oral tablet (20 sources) Start: [...] sources) Long-term current use of anticoagulant; Translations: [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] 04-16-2022 Episodic Other aftercare (6 sources) 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; Translations: [Long-term (current) [...] 07-25-2021 Episodic Other aftercare (2 sources) Other alf (current) drug therapy; Translations: [Other alf (current) drug therapy] Onset: 04-01-2023 Episodic Other [...] John BARTLETT MD Where: General Surgery [facility] General Surgery Office/Clini c Noteon 07-14-2023 [...] virus vaccine, inactivated 04/09/2023 Recorded SARS-CoV-2 (COVID-19) mRNAMUL.ORD![id number] 04/10/2022 Recorded SARSCoV2 mRNA(oacofxcnm-exyq-wqoews) vac 01/10/2022 Recorded SARS-CoV-2 (COVID-19) mRNA BNT-162b2 vax 03/30/2021 Recorded 2023-06-17: TPV75 SARS-CoV-2 (COVID-19) mRNA BNT-162b2 vax 08/24/2020 Recorded 2023-06-17: TPV75 SARS-CoV-2 (COVID-19) mRNA BNT-162b2 vax 08/17/2020 Recorded SARS-CoV-2 (COVID-19) mRNA BNT-162b2 vax 08/03/2020 Recorded 2023-06-17: TPV75 SARS-CoV-2 (COVID-19) mRNA BNT-162b2 vax 07/27/2020 Recorded Normal [facility] Comment on above: Result Comment: Elec tronically Signed By: TRI VICKERS, John Echevarria\Date and Time Signed: 07/14/23 14:19 EST Insurance Correspondenceon 0 07-09-2023 Insurance Correspondence [id number]#1.00TIFF Elana [facility] General Surgery Office/Clini c Noteon 07-07-2023 General [...] virus vaccine, inactivated 04/09/2023 Recorded SARS-CoV-2 (COVID-19) mRNAMUL.ORD![id number] 04/10/2022 Recorded SARSCoV2 mRNA(qypnmaswf-rokn-rkhwld) vac 01/10/2022 Recorded SARS-CoV-2 (COVID-19) mRNA BNT-162b2 vax 03/30/2021 Recorded 2023-06-17: TPV75 SARS-CoV-2 (COVID-19) mRNA BNT-162b2 vax 08/24/2020 Recorded 2023-06-17: TPV75 SARS-CoV-2 (COVID-19) mRNA BNT-162b2 vax 08/17/2020 Recorded SARS-CoV-2 (COVID-19) mRNA BNT-162b2 vax 08/03/2020 Recorded 2023-06-17: TPV75 SARS-CoV-2 (COVID-19) mRNA BNT-162b2 vax 07/27/2020 Recorded Normal [facility] Comment on above: Result Comment: Elec tronically Signed By: TRI VICKERS, John Mendoza\.br\Date and Time Signed: 07/07/23 15:22 EST Facesheeton 06-24-2023 Facesheet [id number]#1.00TIFF Normal [facility] Ambulatory Visit Summaryon 1 08-24-2022 Ambulatory Visit [...] Mendoza Where: General Surgery [facility] Normal [facility] Physician Referralon 023 Physician Referral [id number]#1.00TIFF Normal [facility] Physician Referralon 023 Physician Referral [id number]#1.00TIFF Normal [facility] US venous duplex LE BIon US venous duplex LE BI [facility] [place] [address] Ultrasound Report Signed Patient: Al Kuo MR#: [id number] : 1945 Acct:[id number] Age/Sex: 77 / M ADM Date: 05/18/23 Loc: Room: 8T7110-1 Type: ADM IN Attending Dr: Delmer Whyte [...] Daniel Hirsch MD05/26/2023 8:58 AM [facility] Tech: Gardenia Lopez Transcribed By: GIULIA 05/26/23 0858 Dictated By: Daniel Hirsch MD 05/26/23 0857 Signed By: 05/26/23857 Normal [facility] Alanine aminotransferase [En zymatic activity/volume] in Serum or PlasmaOrdered By: Omar Jackman on 05-19-2023 ALT [Catalytic activity/Vol] 8 U/L 7-52 [facility] Albumin [Mass/volume] in Ser um or Plasma by Bromocresol green (BCG) dye binding methoOrdered By: Omar Jackman on 05-19-2023 Albumin BCG dye [Mass/Vol] 3.1 g/dL 3.5-5.7 [facility] Alkaline phosphatase [Enzyma tic activity/volume] in Serum or PlasmaOrdered By: Omar Jackman on 05-19-2023 ALP [Catalytic activity/Vol] 42 U/L 34-104 [facility] Aspartate aminotransferase [ Enzymatic activity/volume] in Serum or PlasmaOrdered By: Omar Jackman on 05-19-2023 AST [Catalytic activity/Vol] 8 U/L 13-39 [facility] Basophils Auto (Bld) [#/Vol] Ordered By: Omar Jackman on 05-19-2023 Basophils (Bld) [#/Vol] 0.0 10*3/uL 0.0-0.2 [facility] Basophils/100 WBC Auto (Bld) Ordered By: Omar Jackman on 05-19-2023 Basophils/100 WBC (Bld) 0.3 % . [facility] Bilirubin.total [Mass/volume ] in Serum or PlasmaOrdered By: Omar Jackman on 05-19-2023 Bilirubin [Mass/Vol] 1.0 mg/dL 0.3-1.0 [facility] Calcium [Mass/volume] in Ser um or PlasmaOrdered By: Omar Jackman on 05-19-2023 Calcium [Mass/Vol] 8.6 mg/dL 8.6-10.3 [facility] Carbon dioxide, total [Moles /volume] in Serum or PlasmaOrdered By: Omar Jackman on 05-19-2023 CO2 [Moles/Vol] 30.0 mmol/L 21.0-31.0 [facility] Chloride [Moles/volume] in S gary or PlasmaOrdered By: Omar Jackman on 05-19-2023 Chloride [Moles/Vol] 101 mmol/L 98-107 [facility] Complete Blood Count Auto Di ffon 05-19-2023 Basophils (Bld) [#/Vol] 0.0 10*3/uL Normal 0.0-0.2 [facility] Comment on above: Result Comment: PERF ORMED BY: [place] [address] PATHOLOGIST AUTOMATION TEST ENGINEER ISMAEL HERNANDEZ M.D. Performed By: #### C UMRSA, A1C WTH eA, HGB, [id number], ALB #### [address] #### NICOTINE #### [facility] , Basophils/100 WBC (Bld) 0.3 % Normal . [facility] Comment on above: Performed By: #### C UMRSA, A1C WTH eA, HGB, [id number], ALB #### [facility] [address] [place] [address] [place] #### NICOTINE #### [facility] , Eosinophils (Bld) [#/Vol] 0.2 10*3/uL Normal 0.0-0.45 [facility] Comment on above: Performed By: #### C UMRSA, A1C WTH eA, HGB, [id number], ALB #### [place] [address] [place] #### NICOTINE #### [facility] , Eosinophils/100 WBC (Bld) 2.2 % Normal . [facility] Comment on above: Performed By: #### C UMRSA, A1C WTH eA, HGB, [id number], ALB #### [facility] [address] [place] [address] [place] #### NICOTINE #### [facility] , Erythrocyte distribution width (RBC) [Ratio] 14.3 % Normal 12.0-14.8 [facility] Comment on above: Performed By: #### C UMRSA, A1C WTH eA, HGB, [id number], ALB #### [place] [address] [place] #### NICOTINE #### [facility] , Hematocrit (Bld) [Volume fraction] 27.5 % Low 38.8-50.0 [facility] Comment on above: Performed By: #### C UMRSA, A1C WTH eA, HGB, [id number], ALB #### [place] [address] [place] #### NICOTINE #### [facility] , Hemoglobin (Bld) [Mass/Vol] 9.7 g/dL Low 13.0-17.0 [facility] Comment on above: Performed By: #### C UMRSA, A1C WTH eA, HGB, [id number], ALB #### [place] [address] [place] #### NICOTINE #### [facility] , Lymphocytes (Bld) [#/Vol] 1.2 10*3/uL Normal 1.00-4.8 [facility] Comment on above: Performed By: #### C UMRSA, A1C WTH eA, HGB, [id number], ALB #### [facility] [address] [place] [address] [place] #### NICOTINE #### [facility] , Lymphocytes/100 WBC (Bld) 11.5 % Normal . [facility] Comment on above: Performed By: #### C UMRSA, A1C WTH eA, HGB, [id number], ALB #### [facility] [address] [place] [address] [place] #### NICOTINE #### [facility] , MCH (RBC) [Entitic mass] 36.2 pg High 27.5-35.2 [facility] Comment on above: Performed By: #### C UMRSA, A1C WTH eA, HGB, [id number], ALB #### [address] #### NICOTINE #### [facility] , MCV (RBC) [Entitic vol] 103.1 fL High 83.5-101 [facility] Comment on above: Performed By: #### C UMRSA, A1C WTH eA, HGB, [id number], ALB #### [facility] [address] [place] [address] [place] #### NICOTINE #### [facility] , Mean Corpuscular HGB Conc 35.1 g/dL Normal 32.5-35.6 [facility] Comment on above: Performed By: #### C UMRSA, A1C WTH eA, HGB, [id number], ALB #### [place] [address] [place] #### NICOTINE #### [facility] , Monocytes (Bld) [#/Vol] 1.0 10*3/uL High 0.0-0.8 [facility] Comment on above: Performed By: #### C UMRSA, A1C WTH eA, HGB, [id number], ALB #### [place] [address] [place] #### NICOTINE #### [facility] , Monocytes/100 WBC (Bld) 9.4 % Normal . [facility] Comment on above: Performed By: #### C UMRSA, A1C WTH eA, HGB, [id number], ALB #### [facility] [address] [place] [address] [place] #### NICOTINE #### [facility] , Neutrophils (Bld) [#/Vol] 8.1 10*3/uL High 1.8-7.7 [facility] Comment on above: Performed By: #### C UMRSA, A1C WTH eA, HGB, [id number], ALB #### [facility] [address] [place] [address] [place] #### NICOTINE #### [facility] , Neutrophils/100 WBC (Bld) 76.6 % Normal . [facility] Comment on above: Performed By: #### C UMRSA, A1C WTH eA, HGB, [id number], ALB #### [facility] [address] [place] [address] [place] #### NICOTINE #### [facility] , NRBC% 0.1 /100{WBC} Normal 0-0.5 [facility] Comment on above: Performed By: #### C UMRSA, A1C WTH eA, HGB, [id number], ALB #### [facility] [address] [place] [address] [place] #### NICOTINE #### [facility] , Platelet mean volume (Bld) [Entitic vol] 8.3 fL Normal 6.6-10.1 [facility] Comment on above: Performed By: #### C UMRSA, A1C WTH eA, HGB, [id number], ALB #### [facility] [address] [place] [address] [place] #### NICOTINE #### [facility] , Platelets (Bld) [#/Vol] 149 10*3/uL Low 150-450 [facility] Comment on above: Performed By: #### C UMRSA, A1C WTH eA, HGB, [id number], ALB #### [facility] [address] [place] [address] [place] #### NICOTINE #### [facility] , RBC (Bld) [#/Vol] 2.67 10*6/uL Low 3.90-5.60 [facility] Comment on above: Performed By: #### C UMRSA, A1C WTH eA, HGB, [id number], ALB #### [facility] [address] [place] [address] [place] #### NICOTINE #### [facility] , WBC (Bld) [#/Vol] 10.5 10*3/uL Normal 4.1-10.5 [facility] Comment on above: Performed By: #### C UMRSA, A1C WTH eA, HGB, [id number], ALB #### [facility] [address] [place] [address] [place] #### NICOTINE #### [facility] , Comprehensive Metabolic Pane leland 05-19-2023 Albumin [Mass/Vol] 3.1 g/dL Low 3.5-5.7 [facility] Comment on above: Performed By: #### C UMRSA, A1C WTH eA, HGB, [id number], ALB #### [facility] [address] [place] [address] [place] #### NICOTINE #### [facility] , Albumin/Globulin [Mass ratio] 1.3 {ratio} Normal [facility] Comment on above: Performed By: #### C UMRSA, A1C WTH eA, HGB, [id number], ALB #### [facility] [address] [place] [address] [place] #### NICOTINE #### [facility] , ALP [Catalytic activity/Vol] 42 U/L Normal 34-104 [facility] Comment on above: Performed By: #### C UMRSA, A1C WTH eA, HGB, [id number], ALB #### [facility] [address] [place] [address] [place] #### NICOTINE #### [facility] , ALT [Catalytic activity/Vol] 8 U/L Normal 7-52 [facility] Comment on above: Performed By: #### C UMRSA, A1C WTH eA, HGB, [id number], ALB #### [facility] [address] [place] [address] [place] #### NICOTINE #### [facility] , Anion gap [Moles/Vol] 8.3 mmol/L Normal 6.0-15.0 [facility] Comment on above: Performed By: #### C UMRSA, A1C WTH eA, HGB, [id number], ALB #### [facility] [address] [place] [address] [place] #### NICOTINE #### [facility] , AST [Catalytic activity/Vol] 8 U/L Low 13-39 [facility] Comment on above: Performed By: #### C UMRSA, A1C WTH eA, HGB, [id number], ALB #### [place] [address] [place] #### NICOTINE #### [facility] , Bilirubin [Mass/Vol] 1.0 mg/dL Normal 0.3-1.0 [facility] Comment on above: Performed By: #### C UMRSA, A1C WTH eA, HGB, [id number], ALB #### [facility] [address] [place] [address] [place] #### NICOTINE #### [facility] , Calcium [Mass/Vol] 8.6 mg/dL Normal 8.6-10.3 [facility] Comment on above: Performed By: #### C UMRSA, A1C WTH eA, HGB, [id number], ALB #### [facility] [address] [place] [address] [place] #### NICOTINE #### [facility] , Chloride [Moles/Vol] 101 mmol/L Normal 98-107 [facility] Comment on above: Performed By: #### C UMRSA, A1C WTH eA, HGB, [id number], ALB #### [facility] [address] [place] [address] [place] #### NICOTINE #### [facility] , CO2 [Moles/Vol] 30.0 mmol/L Normal 21.0-31.0 [facility] Comment on above: Performed By: #### C UMRSA, A1C WTH eA, HGB, [id number], ALB #### [address] #### NICOTINE #### [facility] , Creatinine [Mass/Vol] 0.94 mg/dL Normal 0.70-1.30 [facility] Comment on above: Performed By: #### C UMRSA, A1C WTH eA, HGB, [id number], ALB #### [facility] [address] [place] [address] [place] #### NICOTINE #### [facility] , Creatinine Clr Calc Pharmacy 90.14 [facility] Comment on above: Performed By: #### C UMRSA, A1C WTH eA, HGB, [id number], ALB #### [facility] [address] [place] [address] [place] #### NICOTINE #### [facility] , GFR/1.73 sq M.predicted MDRD (S/P/Bld) [Vol rate/Area] mL/min/{1.73_m2} [facility] Comment on above: Performed By: #### C UMRSA, A1C WTH eA, HGB, [id number], ALB #### [facility] [address] [place] [address] [place] #### NICOTINE #### [facility] , Globulin (S) [Mass/Vol] 2.4 g/dL Normal [facility] Comment on above: Performed By: #### C UMRSA, A1C WTH eA, HGB, [id number], ALB #### [place] [address] [place] #### NICOTINE #### [facility] , Glucose [Mass/Vol] 113 mg/dL High 70-100 [facility] Comment on above: Result Comment: [facility] Glucose Reference Range is dependent on time and content of last meal. Glucose of more than 200 mg/dL in a nonstressed, ambulatory subject supports the diagnosis of Diabetes Mellitus. ADA recommended reference range Performed By: #### C UMRSA, A1C WTH eA, HGB, [id number], ALB #### [place] [address] [place] #### NICOTINE #### [facility] , Potassium [Moles/Vol] 4.3 mmol/L Normal 3.5-5.1 [facility] Comment on above: Performed By: #### C UMRSA, A1C WTH eA, HGB, [id number], ALB #### [place] [address] [place] #### NICOTINE #### [facility] , Protein [Mass/Vol] 5.5 g/dL Low 6.4-8.9 [facility] Comment on above: Performed By: #### C UMRSA, A1C WTH eA, HGB, [id number], ALB #### [facility] [address] [place] [address] [place] #### NICOTINE #### [facility] , Sodium [Moles/Vol] 135 mmol/L Low 136-145 [facility] Comment on above: Performed By: #### C UMRSA, A1C WTH eA, HGB, [id number], ALB #### [address] [place] [address] [place] #### NICOTINE #### [facility] , Urea nitrogen [Mass/Vol] 25 mg/dL Normal 7-25 [facility] Comment on above: Performed By: #### C UMRSA, A1C WTH eA, HGB, [id number], ALB #### [facility] [address] [place] [address] [place] #### NICOTINE #### [facility] , Creatinine [Mass/volume] in Serum or PlasmaOrdered By: Omar Jackman on 05-19-2023 Creatinine [Mass/Vol] 0.94 mg/dL 0.70-1.30 [facility] Eosinophils Auto (Bld) [#/Vo l]Ordered By: Omar Jackman on 05-19-2023 Eosinophils (Bld) [#/Vol] 0.2 10*3/uL 0.0-0.45 [facility] Eosinophils/100 WBC Auto (Bl d)Ordered By: Omar Jackman on 05-19-2023 Eosinophils/100 WBC (Bld) 2.2 % . [facility] Erythrocyte distribution wid th Auto (RBC) [Ratio]Ordered By: Omar Jackman on 05-19-2023 Erythrocyte distribution width (RBC) [Ratio] 14.3 % 12.0-14.8 [facility] Globulin Calc (S) [Mass/Vol] Ordered By: Omar Jackman on 05-19-2023 Globulin (S) [Mass/Vol] 2.4 g/dL [facility] Glucose [Mass/volume] in Ser um or PlasmaOrdered By: Omar Jackman on 05-19-2023 Glucose [Mass/Vol] 113 mg/dL 70-100 [facility] Comment on above: ADA recommended refe rence rangeRandom Glucose Reference Range is dependent on time and content of last meal. Glucose of more than 200 mg/dL in a nonstressed, ambulatory subject supports the diagnosis of Diabetes Mellitus. Hematocrit Auto (Bld) [Volum e fraction]Ordered By: Omar Jackman on 05-19-2023 Hematocrit (Bld) [Volume fraction] 27.5 % 38.8-50.0 [facility] Hemoglobin [Mass/volume] in BloodOrdered By: Omar Jackman on 05-19-2023 Hemoglobin (Bld) [Mass/Vol] 9.7 g/dL 13.0-17.0 [facility] Leukocytes [#/volume] correc karl for nucleated erythrocytes in Blood by Automated counOrdered By: Omar Jackman on 05-19-2023 WBC corrected for nucl RBC Auto (Bld) [#/Vol] 10.5 10*3/uL 4.1-10.5 [facility] Lymphocytes Auto (Bld) [#/Vo l]Ordered By: Omar Jackman on 05-19-2023 Lymphocytes (Bld) [#/Vol] 1.2 10*3/uL 1.00-4.8 [facility] Lymphocytes/100 WBC Auto (Bl d)Ordered By: Omar Jackman on 05-19-2023 Lymphocytes/100 WBC (Bld) 11.5 % . [facility] MCH Auto (RBC) [Entitic mass ]Ordered By: Omar Jackman on 05-19-2023 MCH (RBC) [Entitic mass] 36.2 pg 27.5-35.2 [facility] MCHC Auto (RBC) [Mass/Vol]Or dered By: Omar Jackman on 05-19-2023 MCHC (RBC) [Mass/Vol] 35.1 g/dL 32.5-35.6 [facility] MCV Auto (RBC) [Entitic vol] Ordered By: Omar Jackman on 05-19-2023 MCV (RBC) [Entitic vol] 103.1 fL 83.5-101 [facility] Monocytes Auto (Bld) [#/Vol] Ordered By: Omar Jackman on 05-19-2023 Monocytes (Bld) [#/Vol] 1.0 10*3/uL 0.0-0.8 [facility] Monocytes/100 WBC Auto (Bld) Ordered By: Omar Jackman on 05-19-2023 Monocytes/100 WBC (Bld) 9.4 % . [facility] Neutrophils Auto (Bld) [#/Vo l]Ordered By: Omar Jackman on 05-19-2023 Neutrophils (Bld) [#/Vol] 8.1 10*3/uL 1.8-7.7 [facility] Neutrophils/100 WBC Auto (Bl d)Ordered By: Omar Jackman on 05-19-2023 Neutrophils/100 WBC (Bld) 76.6 % . [facility] No Panel InformationOrdered By: Omar Jackman on 05-19-2023 Estimated GFR (CKD-EPI) > 60.0 mL/Min [facility] Pharmacy Creatinine Clearance (Chem 90.14 [facility] Nucleated erythrocytes [Pres ence] in Blood by Automated countOrdered By: Worshipforest Jackman on 05-19-2023 Nucleated RBC Auto Ql (Bld) 0.1 /100{WBC} 0-0.5 [facility] Platelet mean volume Auto (B ld) [Entitic vol]Ordered By: Omar Jackman on 05-19-2023 Platelet mean volume (Bld) [Entitic vol] 8.3 fL 6.6-10.1 [facility] Platelets Auto (Bld) [#/Vol] Ordered By: Worshipforest Jackman on 05-19-2023 Platelets (Bld) [#/Vol] 149 10*3/uL 150-450 [facility] Potassium [Moles/volume] in Serum or PlasmaOrdered By: Worshipforest Jackman on 05-19-2023 Potassium [Moles/Vol] 4.3 mmol/L 3.5-5.1 [facility] Prealbuminon 05-19-2023 Prealbumin [Mass/Vol] 14.3 mg/dL Low 17.0-34.0 [facility] Comment on above: Result Comment: PERF ORMED BY: [facility] [address] [place] [address] PATHOLOGIST AUTOMATION TEST ENGINEER ISMAEL HERNANDEZ M.D. Performed By: #### C UMRSA, A1C WTH eA, HGB, [id number], ALB #### [facility] [address] #### NICOTINE #### [facility] , Prealbumin [Mass/volume] in Serum or PlasmaOrdered By: Omar Jackman on 05-19-2023 Prealbumin [Mass/Vol] 14.3 mg/dL 17.0-34.0 [facility] Protein [Mass/volume] in Ser um or PlasmaOrdered By: Omar Jackman on 05-19-2023 Protein [Mass/Vol] 5.5 g/dL 6.4-8.9 [facility] RBC Auto (Bld) [#/Vol]Ordere d By: Omar Jackman on 05-19-2023 RBC (Bld) [#/Vol] 2.67 10*6/uL 3.90-5.60 [facility] [facility] Serum or plasma albumin/glob ulin mass ratioOrdered By: Omar Jackman on 05-19-2023 Albumin/Globulin [Mass ratio] 1.3 {ratio} [facility] Serum or plasma anion gap de terminationOrdered By: Omar Jackman on 05-19-2023 Anion gap [Moles/Vol] 8.3 mmol/L 6.0-15.0 [facility] Sodium [Moles/volume] in Ser um or PlasmaOrdered By: Omar Jackman on 05-19-2023 Sodium [Moles/Vol] 135 mmol/L 136-145 [facility] Urea nitrogen [Mass/volume] in Serum or PlasmaOrdered By: Omar Jackman on 05-19-2023 Urea nitrogen [Mass/Vol] 25 mg/dL 7-25 [facility] WBC Auto (Bld) [#/Vol]Ordere d By: Omar Jackman on 05-19-2023 WBC (Bld) [#/Vol] 10.5 10*3/uL 4.1-10.5 [facility] Basic Metabolic Panelon Anion gap [Moles/Vol] 6.2 mmol/L Normal 6.0-15.0 [facility] Comment on above: Performed By: #### C UMRSA, A1C WTH eA, HGB, [id number], ALB #### [facility] [address] [place] [address] [place] #### NICOTINE #### [facility] , Calcium [Mass/Vol] 8.7 mg/dL Normal 8.6-10.3 [facility] Comment on above: Performed By: #### C UMRSA, A1C WTH eA, HGB, [id number], ALB #### [facility] [address] [place] [address] [place] #### NICOTINE #### [facility] , Chloride [Moles/Vol] 104 mmol/L Normal 98-107 [facility] Comment on above: Performed By: #### C UMRSA, A1C WTH eA, HGB, [id number], ALB #### [facility] [address] [place] [address] #### NICOTINE #### [facility] , CO2 [Moles/Vol] 32.7 mmol/L High 21.0-31.0 [facility] Comment on above: Performed By: #### C UMRSA, A1C WTH eA, HGB, [id number], ALB #### [facility] [address] [place] [address] #### NICOTINE #### [facility] , Creatinine [Mass/Vol] 1.17 mg/dL Normal 0.70-1.30 [facility] Comment on above: Performed By: #### C UMRSA, A1C WTH eA, HGB, [id number], ALB #### [facility] [address] [place] [address] [place] #### NICOTINE #### [facility] , Creatinine Clr Calc Pharmacy 71.91 [facility] Comment on above: Result Comment: PERF ORMED BY: [place] [address] PATHOLOGIST AUTOMATION TEST ENGINEER JIANLAN SUN M.D. Performed By: #### C UMRSA, A1C WTH eA, HGB, [id number], ALB #### [facility] [address] [place] [address] [place] #### NICOTINE #### [facility] , GFR/1.73 sq M.predicted MDRD (S/P/Bld) [Vol rate/Area] mL/min/{1.73_m2} [facility] Comment on above: Performed By: #### C UMRSA, A1C WTH eA, HGB, [id number], ALB #### [place] [address] [place] #### NICOTINE #### [facility] , Glucose [Mass/Vol] 131 mg/dL High 70-100 [facility] Comment on above: Result Comment: [facility] Glucose Reference Range is dependent on time and content of last meal. Glucose of more than 200 mg/dL in a nonstressed, ambulatory subject supports the diagnosis of Diabetes Mellitus. ADA recommended reference range Performed By: #### C UMRSA, A1C WTH eA, HGB, [id number], ALB #### [place] [address] [place] #### NICOTINE #### [facility] , Potassium [Moles/Vol] 4.9 mmol/L Normal 3.5-5.1 [facility] Comment on above: Performed By: #### C UMRSA, A1C WTH eA, HGB, [id number], ALB #### [place] [address] [place] #### NICOTINE #### [facility] , Sodium [Moles/Vol] 138 mmol/L Normal 136-145 [facility] Comment on above: Performed By: #### C UMRSA, A1C WTH eA, HGB, [id number], ALB #### [place] [address] [place] #### NICOTINE #### [facility] , Urea nitrogen [Mass/Vol] 29 mg/dL High 7-25 [facility] Comment on above: Performed By: #### C UMRSA, A1C WTH eA, HGB, [id number], ALB #### [facility] [address] [place] [address] [place] #### NICOTINE #### [facility] , Basophils Auto (Bld) [#/Vol] Ordered By: Andrea Govea on 05-14-2023 Basophils (Bld) [#/Vol] 0.0 10*3/uL 0.0-0.2 [facility] Basophils/100 WBC Auto (Bld) Ordered By: Andrea Govea on 05-14-2023 Basophils/100 WBC (Bld) 0.1 % . [facility] Calcium [Mass/volume] in Ser um or PlasmaOrdered By: Andrea Govea on 05-14-2023 Calcium [Mass/Vol] 8.7 mg/dL 8.6-10.3 [facility] Carbon dioxide, total [Moles /volume] in Serum or PlasmaOrdered By: Andrea Govea on 05-14-2023 CO2 [Moles/Vol] 32.7 mmol/L 21.0-31.0 [facility] Chloride [Moles/volume] in S gary or PlasmaOrdered By: Andrea Govea on 05-14-2023 Chloride [Moles/Vol] 104 mmol/L 98-107 [facility] Complete Blood Count Auto Di ffon 05-14-2023 Basophils (Bld) [#/Vol] 0.0 10*3/uL Normal 0.0-0.2 [facility] Comment on above: Result Comment: PERF ORMED BY: [place] [address] PATHOLOGIST AUTOMATION TEST ENGINEER ISMAEL HERNANDEZ M.D. Performed By: #### C UMRSA, A1C WTH eA, HGB, [id number], ALB #### [facility] [address] [place] [address] [place] #### NICOTINE #### [facility] , Basophils/100 WBC (Bld) 0.1 % Normal . [facility] Comment on above: Performed By: #### C UMRSA, A1C WTH eA, HGB, [id number], ALB #### [facility] [address] [place] [address] [place] #### NICOTINE #### [facility] , Eosinophils (Bld) [#/Vol] 0.0 10*3/uL Normal 0.0-0.45 [facility] Comment on above: Performed By: #### C UMRSA, A1C WTH eA, HGB, [id number], ALB #### [place] [address] [place] #### NICOTINE #### [facility] , Eosinophils/100 WBC (Bld) 0.1 % Normal . [facility] Comment on above: Performed By: #### C UMRSA, A1C WTH eA, HGB, [id number], ALB #### [place] [address] [place] #### NICOTINE #### [facility] , Erythrocyte distribution width (RBC) [Ratio] 14.5 % Normal 12.0-14.8 [facility] Comment on above: Performed By: #### C UMRSA, A1C WTH eA, HGB, [id number], ALB #### [facility] [address] [place] [address] [place] #### NICOTINE #### [facility] , Hematocrit (Bld) [Volume fraction] 31.3 % Low 38.8-50.0 [facility] Comment on above: Performed By: #### C UMRSA, A1C WTH eA, HGB, [id number], ALB #### [facility] [address] [place] [address] [place] #### NICOTINE #### [facility] , Hemoglobin (Bld) [Mass/Vol] 10.8 g/dL Low 13.0-17.0 [facility] Comment on above: Performed By: #### C UMRSA, A1C WTH eA, HGB, [id number], ALB #### [facility] [address] [place] [address] [place] #### NICOTINE #### [facility] , Lymphocytes (Bld) [#/Vol] 0.9 10*3/uL Low 1.00-4.8 [facility] Comment on above: Performed By: #### C UMRSA, A1C WTH eA, HGB, [id number], ALB #### [facility] [address] [place] [address] [place] #### NICOTINE #### [facility] , Lymphocytes/100 WBC (Bld) 6.6 % Normal . [facility] Comment on above: Performed By: #### C UMRSA, A1C WTH eA, HGB, [id number], ALB #### [facility] [address] [place] [address] [place] #### NICOTINE #### [facility] , MCH (RBC) [Entitic mass] 35.9 pg High 27.5-35.2 [facility] Comment on above: Performed By: #### C UMRSA, A1C WTH eA, HGB, [id number], ALB #### [facility] [address] [place] [address] [place] #### NICOTINE #### [facility] , MCV (RBC) [Entitic vol] 103.6 fL High 83.5-101 [facility] Comment on above: Performed By: #### C UMRSA, A1C WTH eA, HGB, [id number], ALB #### [facility] [address] [place] [address] [place] #### NICOTINE #### [facility] , Mean Corpuscular HGB Conc 34.6 g/dL Normal 32.5-35.6 [facility] Comment on above: Performed By: #### C UMRSA, A1C WTH eA, HGB, [id number], ALB #### [facility] [address] [place] [address] [place] #### NICOTINE #### [facility] , Monocytes (Bld) [#/Vol] 1.2 10*3/uL High 0.0-0.8 [facility] Comment on above: Performed By: #### C UMRSA, A1C WTH eA, HGB, [id number], ALB #### [facility] [address] [place] [address] [place] #### NICOTINE #### [facility] , Monocytes/100 WBC (Bld) 9.3 % Normal . [facility] Comment on above: Performed By: #### C UMRSA, A1C WTH eA, HGB, [id number], ALB #### [address] #### NICOTINE #### [facility] , Neutrophils (Bld) [#/Vol] 11.1 10*3/uL High 1.8-7.7 [facility] Comment on above: Performed By: #### C UMRSA, A1C WTH eA, HGB, [id number], ALB #### [place] [address] [place] #### NICOTINE #### [facility] , Neutrophils/100 WBC (Bld) 83.9 % Normal . [facility] Comment on above: Performed By: #### C UMRSA, A1C WTH eA, HGB, [id number], ALB #### [facility] [address] [place] [address] [place] #### NICOTINE #### [facility] , NRBC% 0.1 /100{WBC} Normal 0-0.5 [facility] Comment on above: Performed By: #### C UMRSA, A1C WTH eA, HGB, [id number], ALB #### [place] [address] [place] #### NICOTINE #### [facility] , Platelet mean volume (Bld) [Entitic vol] 8.5 fL Normal 6.6-10.1 [facility] Comment on above: Performed By: #### C UMRSA, A1C WTH eA, HGB, [id number], ALB #### [facility] [address] [place] [address] [place] #### NICOTINE #### [facility] , Platelets (Bld) [#/Vol] 119 10*3/uL Low 150-450 [facility] Comment on above: Performed By: #### C UMRSA, A1C WTH eA, HGB, [id number], ALB #### [facility] [address] [place] [address] #### NICOTINE #### [facility] , RBC (Bld) [#/Vol] 3.02 10*6/uL Low 3.90-5.60 [facility] Comment on above: Performed By: #### C UMRSA, A1C WTH eA, HGB, [id number], ALB #### [facility] [address] [place] [address] [place] #### NICOTINE #### [facility] , WBC (Bld) [#/Vol] 13.2 10*3/uL High 4.1-10.5 [facility] Comment on above: Performed By: #### C UMRSA, A1C WTH eA, HGB, [id number], ALB #### [facility] [address] [place] [address] [place] #### NICOTINE #### [facility] , Creatinine [Mass/volume] in Serum or PlasmaOrdered By: Andrea Govea on 05-14-2023 Creatinine [Mass/Vol] 1.17 mg/dL 0.70-1.30 [facility] Eosinophils Auto (Bld) [#/Vo l]Ordered By: Andrea Govea on 05-14-2023 Eosinophils (Bld) [#/Vol] 0.0 10*3/uL 0.0-0.45 [facility] Eosinophils/100 WBC Auto (Bl d)Ordered By: Andrea Govea on 05-14-2023 Eosinophils/100 WBC (Bld) 0.1 % . [facility] Erythrocyte distribution wid th Auto (RBC) [Ratio]Ordered By: Andrea Govea on 05-14-2023 Erythrocyte distribution width (RBC) [Ratio] 14.5 % 12.0-14.8 [facility] Glucose [Mass/volume] in Ser um or PlasmaOrdered By: Andrea Govea on 05-14-2023 Glucose [Mass/Vol] 131 mg/dL 70-100 [facility] Comment on above: ADA recommended refe rence rangeRandom Glucose Reference Range is dependent on time and content of last meal. Glucose of more than 200 mg/dL in a nonstressed, ambulatory subject supports the diagnosis of Diabetes Mellitus. Hematocrit Auto (Bld) [Volum e fraction]Ordered By: Andrea Govea on 05-14-2023 Hematocrit (Bld) [Volume fraction] 31.3 % 38.8-50.0 [facility] Hemoglobin [Mass/volume] in BloodOrdered By: Andrea Govea on 05-14-2023 Hemoglobin (Bld) [Mass/Vol] 10.8 g/dL 13.0-17.0 [facility] Leukocytes [#/volume] correc karl for nucleated erythrocytes in Blood by Automated counOrdered By: Andrea Govea on 05-14-2023 WBC corrected for nucl RBC Auto (Bld) [#/Vol] 13.2 10*3/uL 4.1-10.5 [facility] Lymphocytes Auto (Bld) [#/Vo l]Ordered By: Andrea Govea on 05-14-2023 Lymphocytes (Bld) [#/Vol] 0.9 10*3/uL 1.00-4.8 [facility] Lymphocytes/100 WBC Auto (Bl d)Ordered By: Andrea Govea on 05-14-2023 Lymphocytes/100 WBC (Bld) 6.6 % . [facility] MCH Auto (RBC) [Entitic mass ]Ordered By: Andrea Govea on 05-14-2023 MCH (RBC) [Entitic mass] 35.9 pg 27.5-35.2 [facility] MCHC Auto (RBC) [Mass/Vol]Or dered By: Andrea Govea on 05-14-2023 MCHC (RBC) [Mass/Vol] 34.6 g/dL 32.5-35.6 [facility] MCV Auto (RBC) [Entitic vol] Ordered By: Andrea Govea on 05-14-2023 MCV (RBC) [Entitic vol] 103.6 fL 83.5-101 [facility] Monocytes Auto (Bld) [#/Vol] Ordered By: Andrea Govea on 05-14-2023 Monocytes (Bld) [#/Vol] 1.2 10*3/uL 0.0-0.8 [facility] Monocytes/100 WBC Auto (Bld) Ordered By: Andrea Govea on 05-14-2023 Monocytes/100 WBC (Bld) 9.3 % . [facility] Neutrophils Auto (Bld) [#/Vo l]Ordered By: Andrea Govea on 05-14-2023 Neutrophils (Bld) [#/Vol] 11.1 10*3/uL 1.8-7.7 [facility] Neutrophils/100 WBC Auto (Bl d)Ordered By: Andrea Govea on 05-14-2023 Neutrophils/100 WBC (Bld) 83.9 % . [facility] No Panel InformationOrdered By: Andrea Govea on 05-14-2023 Estimated GFR (CKD-EPI) > 60.0 mL/Min [facility] Pharmacy Creatinine Clearance (Chem 71.91 [facility] Nucleated erythrocytes [Pres ence] in Blood by Automated countOrdered By: Andrea Govea on 05-14-2023 Nucleated RBC Auto Ql (Bld) 0.1 /100{WBC} 0-0.5 [facility] Platelet mean volume Auto (B ld) [Entitic vol]Ordered By: Andrea Govea on 05-14-2023 Platelet mean volume (Bld) [Entitic vol] 8.5 fL 6.6-10.1 [facility] Platelets Auto (Bld) [#/Vol] Ordered By: Andrea Govea on 05-14-2023 Platelets (Bld) [#/Vol] 119 10*3/uL 150-450 [facility] Potassium [Moles/volume] in Serum or PlasmaOrdered By: Andrea Gvoea on 05-14-2023 Potassium [Moles/Vol] 4.9 mmol/L 3.5-5.1 [facility] RBC Auto (Bld) [#/Vol]Ordere d By: Andrea Govea on 05-14-2023 RBC (Bld) [#/Vol] 3.02 10*6/uL 3.90-5.60 [facility] Serum or plasma anion gap de terminationOrdered By: Andrea Govea on 05-14-2023 Anion gap [Moles/Vol] 6.2 mmol/L 6.0-15.0 [facility] Sodium [Moles/volume] in Ser um or PlasmaOrdered By: Andrea Govea on 05-14-2023 Sodium [Moles/Vol] 138 mmol/L 136-145 [facility] Urea nitrogen [Mass/volume] in Serum or PlasmaOrdered By: Andrea Govea on 05-14-2023 Urea nitrogen [Mass/Vol] 29 mg/dL 7-25 [facility] WBC Auto (Bld) [#/Vol]Ordere d By: Andrea Govea on 05-14-2023 WBC (Bld) [#/Vol] 13.2 10*3/uL 4.1-10.5 [facility] Basic Metabolic Panelon 11-0 Anion gap [Moles/Vol] 8.0 mmol/L Normal 6.0-15.0 [facility] Comment on above: Performed By: #### B MP, CBC #### [facility] [address] [place] [address] [place] Calcium [Mass/Vol] 8.7 mg/dL Normal 8.6-10.3 [facility] Comment on above: Performed By: #### B MP, CBC #### [facility] [address] [place] [address] [place] Chloride [Moles/Vol] 101 mmol/L Normal 98-107 [facility] Comment on above: Performed By: #### B MP, CBC #### [facility] [address] [place] [address] [place] CO2 [Moles/Vol] 29.1 mmol/L Normal 21.0-31.0 [facility] Comment on above: Performed By: #### B MP, CBC #### [facility] [address] [place] [address] [place] Creatinine [Mass/Vol] 1.32 mg/dL High 0.70-1.30 [facility] Comment on above: Performed By: #### B MP, CBC #### [facility] [address] [place] [address] [place] Creatinine Clr Calc Pharmacy 63.68 [facility] Comment on above: Result Comment: PERF ORMED BY: [place] [address] PATHOLOGIST AUTOMATION TEST ENGINEER ISMAEL HERNANDEZ M.D. Performed By: #### B MP, CBC #### [facility] [address] [place] [address] [place] GFR/1.73 sq M.predicted MDRD (S/P/Bld) [Vol rate/Area] 55.209 mL/min/{1.73_m2} Normal [facility] Comment on above: Performed By: #### B MP, CBC #### [facility] [address] [place] [address] [place] Glucose [Mass/Vol] 200 mg/dL High 70-100 [facility] Comment on above: Result Comment: [place] Glucose Reference Range is dependent on time and content of last meal. Glucose of more than 200 mg/dL in a nonstressed, ambulatory subject supports the diagnosis of Diabetes Mellitus. ADA recommended reference range Performed By: #### B MP, CBC #### [facility] [address] [place] [address] [place] Potassium [Moles/Vol] 5.1 mmol/L Normal 3.5-5.1 [facility] Comment on above: Performed By: #### B MP, CBC #### [facility] [address] [place] [address] [place] Sodium [Moles/Vol] 133 mmol/L Low 136-145 [facility] Comment on above: Performed By: #### B MP, CBC #### [address] Urea nitrogen [Mass/Vol] 25 mg/dL Normal 7-25 [facility] Comment on above: Performed By: #### B MP, CBC #### [address] Complete Blood Count Auto Di ffon 05-13-2023 Basophils (Bld) [#/Vol] 0.0 10*3/uL Normal 0.0-0.2 [facility] Comment on above: Result Comment: PERF ORMED BY: [place] [address] PATHOLOGIST AUTOMATION TEST ENGINEER ISMAEL HERNANDEZ M.D. Performed By: #### B MP, CBC #### [address] Basophils/100 WBC (Bld) 0.0 % Normal . [facility] Comment on above: Performed By: #### B MP, CBC #### [address] Eosinophils (Bld) [#/Vol] 0.0 10*3/uL Normal 0.0-0.45 [facility] Comment on above: Performed By: #### B MP, CBC #### [address] Eosinophils/100 WBC (Bld) 0.0 % Normal . [facility] Comment on above: Performed By: #### B MP, CBC #### [address] Erythrocyte distribution width (RBC) [Ratio] 14.3 % Normal 12.0-14.8 [facility] Comment on above: Performed By: #### B MP, CBC #### [address] Hematocrit (Bld) [Volume fraction] 35.4 % Low 38.8-50.0 [facility] Comment on above: Performed By: #### B MP, CBC #### [facility] [address] Hemoglobin (Bld) [Mass/Vol] 12.1 g/dL Low 13.0-17.0 [facility] Comment on above: Performed By: #### B MP, CBC #### [facility] [address] Lymphocytes (Bld) [#/Vol] 0.6 10*3/uL Low 1.00-4.8 [facility] Comment on above: Performed By: #### B MP, CBC #### [facility] [address] Lymphocytes/100 WBC (Bld) 5.2 % Normal . [facility] Comment on above: Performed By: #### B MP, CBC #### [facility] [address] MCH (RBC) [Entitic mass] 35.4 pg High 27.5-35.2 [facility] Comment on above: Performed By: #### B MP, CBC #### [facility] [address] MCV (RBC) [Entitic vol] 103.9 fL High 83.5-101 [facility] Comment on above: Performed By: #### B MP, CBC #### [facility] [address] Mean Corpuscular HGB Conc 34.1 g/dL Normal 32.5-35.6 [facility] Comment on above: Performed By: #### B MP, CBC #### [facility] [address] [place] [address] [place] Monocytes (Bld) [#/Vol] 0.5 10*3/uL Normal 0.0-0.8 [facility] Comment on above: Performed By: #### B MP, CBC #### [facility] [address] [place] [address] [place] Monocytes/100 WBC (Bld) 4.3 % Normal . [facility] Comment on above: Performed By: #### B MP, CBC #### [facility] [address] [place] [address] [place] Neutrophils (Bld) [#/Vol] 10.3 10*3/uL High 1.8-7.7 [facility] Comment on above: Performed By: #### B MP, CBC #### [facility] [address] [place] [address] [place] Neutrophils/100 WBC (Bld) 90.5 % Normal . [facility] Comment on above: Performed By: #### B MP, CBC #### [facility] [address] NRBC% 0.0 /100{WBC} Normal 0-0.5 [facility] Comment on above: Performed By: #### B MP, CBC #### [facility] [address] Platelet mean volume (Bld) [Entitic vol] 8.8 fL Normal 6.6-10.1 [facility] Comment on above: Performed By: #### B MP, CBC #### [facility] [address] [place] [address] [place] Platelets (Bld) [#/Vol] 115 10*3/uL Low 150-450 [facility] Comment on above: Performed By: #### B MP, CBC #### [facility] [address] [place] [address] [place] RBC (Bld) [#/Vol] 3.40 10*6/uL Low 3.90-5.60 [facility] Comment on above: Performed By: #### B MP, CBC #### [facility] [address] [place] [address] [place] WBC (Bld) [#/Vol] 11.4 10*3/uL High 4.1-10.5 [facility] Comment on above: Performed By: #### B MP, CBC #### [facility] [address] [place] [address] [place] L[place] 05-12-2023 L ------- Specimen: [id number] Received: 05/12/23 Status: AMBER Padgett Num: [id number] Spec Type: Surgical Subm Dr: Andrea Govea MD Tissues: A Joint/Knee (LT KNEE) Procedures: MIGUEL ANGEL, Gross/Micro L4, Decalcification Age/ Patient Sex Location Account Attending Physician Al Kuo 77[place] [id number] Andrea Govea MD SPEC NUM: [id number] RECD: 05/12/23 STATUS: AMBER PADGETT NUM: [id number] LEW: 05/12/[address] [facility] DR: Andrea Govea MD ENTERED: 05/12/[address] [facility] [address]: SPEC TYPE: Surgical DEPT: S ORDERED: [...] is taken. Gross examination only. CPT Codes 42909 Specimen: [id number] Received: 05/12/23 Status: AMBER Padgett Num: [id number] Spec Type: Surgical Subm Dr: Andrea Govea MD Tissues: A Joint/Knee (LT KNEE) Procedures: Lanie MICHELLE/Micro L4, Decalcification Patient: SegundodianemamtaAl Osvaldo [id number] (Continued) Specimen: [id number] Received: 05/12/23 (Continued) Signed (signature on file) Zofia Lechuga MD 05/26/23 1534 Specimen: [id number] Received: 05/12/23 Status: AMBER Bambi Num: [id number] Spec Type: Surgical Subm Dr: Andrea Govea MD Tissues: A Joint/Knee (LT KNEE) Procedures: MIGUEL ANGEL, Gross/Micro L4, Decalcification Patient: Al Kuo [id number] (Continued) Specimen: [id number] Received: 05/12/23 (Continued) Lanie Photo Specimen: [id number] Received: 05/12/23 Status: AMBER Padgett Num: [id number] Spec Type: Surgical Subm Dr: Andrea Govea MD Tissues: A Joint/Knee (LT KNEE) Procedures: Lanie MICHELLE/Asa Redman, Decalcification Patient: Al Kuo [id number] (Continued) Signed (signature on file) Zofia Lechuga MD 05/26/23 1534 [facility] XR knee LT 2Von 05-12-2023 XR knee LT 2V [facility] [address] [place] [address] XRay Report Signed Patient: Al Kuo MR#: [id number] : 1945 Acct:[id number] Age/Sex: 77 / M ADM Date: 05/12/23 Loc: Room: [address] [place] [address] Type: REG SD Attending Dr: Andrea Govea [...] Tyrell Walker M.D.05/12/2023 4:32 PM Dictation Location: [place] [address] Transcribed By: [facility] 05/12/23 1632 Dictated By: Tyrell Walker DO 05/12/23 1631 Signed By: 05/12/23 1632 [facility] Basic Metabolic Panelon 10- Anion gap [Moles/Vol] 7.0 mmol/L Normal 6.0-15.0 [facility] Comment on above: Performed By: #### C UMRSA, A1C WTH eA, HGB, [id number], ALB #### [facility] [address] #### NICOTINE #### [facility] , Calcium [Mass/Vol] 8.8 mg/dL Normal 8.6-10.3 [facility] Comment on above: Result Comment: PERF ORMED BY: [place] [address] PATHOLOGIST AUTOMATION TEST ENGINEER ISMAEL HERNANDEZ M.D. Performed By: #### C UMRSA, A1C WTH eA, HGB, [id number], ALB #### [place] [address] [place] #### NICOTINE #### [facility] , Chloride [Moles/Vol] 100 mmol/L Normal 98-107 [facility] Comment on above: Performed By: #### C UMRSA, A1C WTH eA, HGB, [id number], ALB #### [place] [address] [place] #### NICOTINE #### [facility] , CO2 [Moles/Vol] 33.0 mmol/L High 21.0-31.0 [facility] Comment on above: Performed By: #### C UMRSA, A1C WTH eA, HGB, [id number], ALB #### [place] [address] [place] #### NICOTINE #### [facility] , Creatinine [Mass/Vol] 1.22 mg/dL Normal 0.70-1.30 [facility] Comment on above: Performed By: #### C UMRSA, A1C WTH eA, HGB, [id number], ALB #### [facility] [address] [place] [address] [place] #### NICOTINE #### [facility] , GFR/1.73 sq M.predicted MDRD (S/P/Bld) [Vol rate/Area] mL/min/{1.73_m2} Normal [facility] Comment on above: Performed By: #### C UMRSA, A1C WTH eA, HGB, [id number], ALB #### [facility] [address] [place] [address] [place] #### NICOTINE #### [facility] , Glucose [Mass/Vol] 128 mg/dL High 70-100 [facility] Comment on above: Result Comment: [place] Glucose Reference Range is dependent on time and content of last meal. Glucose of more than 200 mg/dL in a nonstressed, ambulatory subject supports the diagnosis of Diabetes Mellitus. ADA recommended reference range Performed By: #### C UMRSA, A1C WTH eA, HGB, [id number], ALB #### [facility] [address] [place] [address] [place] #### NICOTINE #### [facility] , Potassium [Moles/Vol] 5.0 mmol/L Normal 3.5-5.1 [facility] Comment on above: Performed By: #### C UMRSA, A1C WTH eA, HGB, [id number], ALB #### [place] [address] [place] #### NICOTINE #### [facility] , Sodium [Moles/Vol] 135 mmol/L Low 136-145 [facility] Comment on above: Performed By: #### C UMRSA, A1C WTH eA, HGB, [id number], ALB #### [facility] [address] [place] [address] [place] #### NICOTINE #### [facility] , Urea nitrogen [Mass/Vol] 16 mg/dL Normal 7-25 [facility] Comment on above: Performed By: #### C UMRSA, A1C WTH eA, HGB, [id number], ALB #### [facility] [address] [place] [address] [place] #### NICOTINE #### [facility] , Basophils Auto (Bld) [#/Vol] Ordered By: Andrea Govea on 04-28-2023 Basophils (Bld) [#/Vol] 0.0 10*3/uL 0.0-0.2 [facility] Basophils/100 WBC Auto (Bld) Ordered By: Andrea Govea on 04-28-2023 Basophils/100 WBC (Bld) 0.4 % . [facility] Bilirubin Test strip Ql (U)O rdered By: Andrea Govea on 04-28-2023 Bilirubin Ql (U) Negative Negative [facility] Calcium [Mass/volume] in Ser um or PlasmaOrdered By: Andrea Govea on 04-28-2023 Calcium [Mass/Vol] 8.8 mg/dL 8.6-10.3 [facility] Carbon dioxide, total [Moles /volume] in Serum or PlasmaOrdered By: Andrea Govea on 04-28-2023 CO2 [Moles/Vol] 33.0 mmol/L 21.0-31.0 [facility] Chloride [Moles/volume] in S gary or PlasmaOrdered By: Andrea Govea on 04-28-2023 Chloride [Moles/Vol] 100 mmol/L 98-107 [facility] Color Auto (U)Ordered By: Silvina Govea on 04-28-2023 Color (U) Yellow Yellow [facility] Complete Blood Count Auto Di ffon 04-28-2023 Basophils (Bld) [#/Vol] 0.0 10*3/uL Normal 0.0-0.2 [facility] Comment on above: Result Comment: PERF ORMED BY: [place] [address] PATHOLOGIST AUTOMATION TEST ENGINEER ISMAEL HERNANDEZ M.D. Performed By: #### F RUC #### [facility] , #### CBC #### [facility] [address] [place] [address] Basophils/100 WBC (Bld) 0.4 % Normal . [facility] Comment on above: Performed By: #### F RUC #### [facility] , #### CBC #### [facility] [address] Eosinophils (Bld) [#/Vol] 0.2 10*3/uL Normal 0.0-0.45 [facility] Comment on above: Performed By: #### F RUC #### [facility] , #### CBC #### [place] [address] [place] Eosinophils/100 WBC (Bld) 3.1 % Normal . [facility] Comment on above: Performed By: #### F RUC #### [facility] , #### CBC #### [address] Erythrocyte distribution width (RBC) [Ratio] 14.2 % Normal 12.0-14.8 [facility] Comment on above: Performed By: #### F RUC #### [facility] , #### CBC #### [address] Hematocrit (Bld) [Volume fraction] 38.2 % Low 38.8-50.0 [facility] Comment on above: Performed By: #### F RUC #### [facility] , #### CBC #### [address] Hemoglobin (Bld) [Mass/Vol] 13.2 g/dL Normal 13.0-17.0 [facility] Comment on above: Performed By: #### F RUC #### [facility] , #### CBC #### [address] Lymphocytes (Bld) [#/Vol] 1.0 10*3/uL Normal 1.00-4.8 [facility] Comment on above: Performed By: #### F RUC #### [facility] , #### CBC #### [facility] [address] [place] [address] [place] Lymphocytes/100 WBC (Bld) 12.1 % Normal . [facility] Comment on above: Performed By: #### F RUC #### [facility] , #### CBC #### [address] MCH (RBC) [Entitic mass] 35.7 pg High 27.5-35.2 [facility] Comment on above: Performed By: #### F RUC #### [facility] , #### CBC #### [address] MCV (RBC) [Entitic vol] 103.3 fL High 83.5-101 [facility] Comment on above: Performed By: #### F RUC #### [facility] , #### CBC #### [address] Mean Corpuscular HGB Conc 34.6 g/dL Normal 32.5-35.6 [facility] Comment on above: Performed By: #### F RUC #### [facility] , #### CBC #### [address] Monocytes (Bld) [#/Vol] 0.6 10*3/uL Normal 0.0-0.8 [facility] Comment on above: Performed By: #### F RUC #### [facility] , #### CBC #### [address] Monocytes/100 WBC (Bld) 7.9 % Normal . [facility] Comment on above: Performed By: #### F RUC #### [facility] , #### CBC #### [place] [address] [place] Neutrophils (Bld) [#/Vol] 6.1 10*3/uL Normal 1.8-7.7 [facility] Comment on above: Performed By: #### F RUC #### [facility] , #### CBC #### [place] [address] [place] Neutrophils/100 WBC (Bld) 76.5 % Normal . [facility] Comment on above: Performed By: #### F RUC #### [facility] , #### CBC #### [facility] [address] NRBC% 0.1 /100{WBC} Normal 0-0.5 [facility] Comment on above: Performed By: #### F RUC #### [facility] , #### CBC #### [facility] [address] Platelet mean volume (Bld) [Entitic vol] 8.6 fL Normal 6.6-10.1 [facility] Comment on above: Performed By: #### F RUC #### [facility] , #### CBC #### [address] Platelets (Bld) [#/Vol] 110 10*3/uL Low 150-450 [facility] Comment on above: Performed By: #### F RUC #### [facility] , #### CBC #### [facility] [address] [place] [address] RBC (Bld) [#/Vol] 3.69 10*6/uL Low 3.90-5.60 [facility] Comment on above: Performed By: #### F RUC #### [facility] , #### CBC #### [facility] [address] [place] [address] WBC (Bld) [#/Vol] 8.0 10*3/uL Normal 4.1-10.5 [facility] Comment on above: Performed By: #### F RUC #### [facility] , #### CBC #### [facility] [address] [place] [address] Creatinine [Mass/volume] in Serum or PlasmaOrdered By: Andrea Govea on 04-28-2023 Creatinine [Mass/Vol] 1.22 mg/dL 0.70-1.30 [facility] ECG 12 lead ECGon 04-28-2023 ECG 12 lead ECG [facility] [place] [address] [place] [address] Electrocardiograph Report Signed Patient: Al Kuo MR#: [id number] : 1945 Acct:[id number] Age/Sex: 77 / M ADM Date: 04/28/23 Loc: [facility]: [facility]: Andrea Govea II, MD Ordering [...] By Andrea Ramirez DO 04/28 1909 Normal [facility] Eosinophils Auto (Bld) [#/Vo l]Ordered By: Andrea Govea on 04-28-2023 Eosinophils (Bld) [#/Vol] 0.2 10*3/uL 0.0-0.45 [facility] Eosinophils/100 WBC Auto (Bl d)Ordered By: Andrea Govea on 04-28-2023 Eosinophils/100 WBC (Bld) 3.1 % . [facility] Erythrocyte distribution wid th Auto (RBC) [Ratio]Ordered By: Andrea Govea on 04-28-2023 Erythrocyte distribution width (RBC) [Ratio] 14.2 % 12.0-14.8 [facility] Fructosamineon 04-28-2023 Fructosamine 223 umol/L Normal 0-285 [facility] Comment on above: Result Comment: Publ ished reference interval for apparently healthy subjects between age 20 and 60 is 205 - 285 umol/L and in a poorly controlled diabetic population is 228 - 563 umol/L with a mean of 396 umol/L. Performed at: - [facility] [address] [place], [place] [id number] Video Game Tester: Mango Cantu PhD, Phone: [phone] PERFORMED BY: [place] [address] PATHOLOGIST AUTOMATION TEST ENGINEER ISMAEL HERNANDEZ M.D. Performed By: #### C UMRSA, A1C WTH eA, HGB, [id number], ALB #### [facility] [address] [place] [address] #### NICOTINE #### [facility] , Fructosamine [Moles/volume] in Serum or PlasmaOrdered By: Andrea Govea on 04-28-2023 Fructosamine [Moles/Vol] 223 umol/L 0-285 [facility] Comment on above: Published reference interval for apparently healthysubjects between age 20 and 60 is 205 - 285 umol/L and in apoorly controlled diabetic population is 228 - 563 umol/Lwith a mean of 396 umol/L.Performed at: - [facility] [id number] [place], [place] [id number] Director: Mango Cantu PhD, Phone: [phone] Glucose [Mass/volume] in Ser um or PlasmaOrdered By: Andrea Govea on 04-28-2023 Glucose [Mass/Vol] 128 mg/dL 70-100 [facility] Comment on above: ADA recommended refe rence rangeRandom Glucose Reference Range is dependent on time and content of last meal. Glucose of more than 200 mg/dL in a nonstressed, ambulatory subject supports the diagnosis of Diabetes Mellitus. Hematocrit Auto (Bld) [Volum e fraction]Ordered By: Andrea Govea on 04-28-2023 Hematocrit (Bld) [Volume fraction] 38.2 % 38.8-50.0 [facility] Hemoglobin [Mass/volume] in BloodOrdered By: Andrea Govea on 04-28-2023 Hemoglobin (Bld) [Mass/Vol] 13.2 g/dL 13.0-17.0 [facility] Ketones Auto test strip (U) [Mass/Vol]Ordered By: Andrea Govea on 04-28-2023 Ketones (U) [Mass/Vol] Trace Negative Fi [facility] Leukocytes [#/volume] correc karl for nucleated erythrocytes in Blood by Automated counOrdered By: Andrea Govea on 04-28-2023 WBC corrected for nucl RBC Auto (Bld) [#/Vol] 8.0 10*3/uL 4.1-10.5 [facility] Lymphocytes Auto (Bld) [#/Vo l]Ordered By: Andrea Govea on 04-28-2023 Lymphocytes (Bld) [#/Vol] 1.0 10*3/uL 1.00-4.8 [facility] Lymphocytes/100 WBC Auto (Bl d)Ordered By: Andrea Govea on 04-28-2023 Lymphocytes/100 WBC (Bld) 12.1 % . [facility] MCH Auto (RBC) [Entitic mass ]Ordered By: Andrea Gvoea on 04-28-2023 MCH (RBC) [Entitic mass] 35.7 pg 27.5-35.2 [facility] MCHC Auto (RBC) [Mass/Vol]Or dered By: Andrea Govea on 04-28-2023 MCHC (RBC) [Mass/Vol] 34.6 g/dL 32.5-35.6 [facility] MCV Auto (RBC) [Entitic vol] Ordered By: Andrea Govea on 04-28-2023 MCV (RBC) [Entitic vol] 103.3 fL 83.5-101 [facility] Monocytes Auto (Bld) [#/Vol] Ordered By: Andrea Govea on 04-28-2023 Monocytes (Bld) [#/Vol] 0.6 10*3/uL 0.0-0.8 [facility] Monocytes/100 WBC Auto (Bld) Ordered By: Andrea Govea on 04-28-2023 Monocytes/100 WBC (Bld) 7.9 % . [facility] Neutrophils Auto (Bld) [#/Vo l]Ordered By: Andrea Govea on 04-28-2023 Neutrophils (Bld) [#/Vol] 6.1 10*3/uL 1.8-7.7 [facility] Neutrophils/100 WBC Auto (Bl d)Ordered By: Andrea Govea on 04-28-2023 Neutrophils/100 WBC (Bld) 76.5 % . [facility] Nitrite Test strip Ql (U)Ord ered By: Andrea Govea on 04-28-2023 Nitrite Ql (U) Negative Negative [facility] No Panel InformationOrdered By: Andrea Govea on 04-28-2023 Estimated GFR (CKD-EPI) > 60.0 mL/Min [facility] Creatinine Clearance (Chem N/A [facility] Nucleated erythrocytes [Pres ence] in Blood by Automated countOrdered By: Andrea Govea on 04-28-2023 Nucleated RBC Auto Ql (Bld) 0.1 /100{WBC} 0-0.5 [facility] PST Type and Screenon 2022 ABO and Rh group Nom (Bld) Blood group A Rh(D) negative Normal [facility] Comment on above: Order Comment: Reaso n for Exam Age-related osteoporosis without current pathological fractu FASTING. JKW Result Comment: PERF ORMED BY: [facility] [address] [place] [address] PATHOLOGIST AUTOMATION TEST ENGINEER ISMAEL HERNANDEZ M.D. Platelet mean volume Auto (B ld) [Entitic vol]Ordered By: Andrea Govea on 04-28-2023 Platelet mean volume (Bld) [Entitic vol] 8.6 fL 6.6-10.1 [facility] Platelets Auto (Bld) [#/Vol] Ordered By: Andrea Govea on 04-28-2023 Platelets (Bld) [#/Vol] 110 10*3/uL 150-450 [facility] Potassium [Moles/volume] in Serum or PlasmaOrdered By: Andrea Govea on 04-28-2023 Potassium [Moles/Vol] 5.0 mmol/L 3.5-5.1 [facility] Protein Auto test strip (U) [Mass/Vol]Ordered By: Andrea Govea on 04-28-2023 Protein (U) [Mass/Vol] Negative Negative [facility] RBC Auto (Bld) [#/Vol]Ordere d By: Andrea Govea on 04-28-2023 RBC (Bld) [#/Vol] 3.69 10*6/uL 3.90-5.60 [facility] Serum or plasma anion gap de terminationOrdered By: Andrea Govea on 04-28-2023 Anion gap [Moles/Vol] 7.0 mmol/L 6.0-15.0 [facility] Sodium [Moles/volume] in Ser um or PlasmaOrdered By: Andrea Govea on 04-28-2023 Sodium [Moles/Vol] 135 mmol/L 136-145 [facility] Specific gravity Auto test s trip (U) [Rel density]Ordered By: Andrea Govea on 04-28-2023 Specific gravity (U) [Rel density] 1.015 1.001-1.03 0 [facility] Urea nitrogen [Mass/volume] in Serum or PlasmaOrdered By: Andrea Govea on 04-28-2023 Urea nitrogen [Mass/Vol] 16 mg/dL 7-25 [facility] Urinalysison 04-28-2023 Appearance (U) Clear Normal Clear [facility] Comment on above: Order Comment: Name Collection Type:: Clean-Voided Midstream Performed By: #### U A #### [facility] [address] [place] [address] [place] Bilirubin,Urine Negative Normal Negative [facility] Comment on above: Order Comment: Name Collection Type:: Clean-Voided Midstream Performed By: #### U A #### [facility] [address] [place] [address] [place] Color (U) Yellow Normal Yellow [facility] Comment on above: Order Comment: Name Collection Type:: Clean-Voided Midstream Performed By: #### U A #### [facility] [address] [place] [address] [place] Glucose Ql (U) Normal Normal Normal [facility] Comment on above: Order Comment: Name Collection Type:: Clean-Voided Midstream Performed By: #### U A #### [facility] [address] [place] [address] Ketones Ql (U) Trace High Negative [facility] Comment on above: Order Comment: Name Collection Type:: Clean-Voided Midstream Performed By: #### U A #### [facility] [address] [place] [address] Leukocyte esterase Test strip Ql (U) Negative Normal Negative [facility] Comment on above: Order Comment: Name Collection Type:: Clean-Voided Midstream Performed By: #### U A #### [address] Nitrite,Urine Negative Normal Negative [facility] Comment on above: Order Comment: Name Collection Type:: Clean-Voided Midstream Performed By: #### U A #### [place] [address] [place] Occult Blood,Urine Negative Normal Negative [facility] Comment on above: Order Comment: Name Collection Type:: Clean-Voided Midstream Result Comment: PERF ORMED BY: [place] [address] PATHOLOGIST AUTOMATION TEST ENGINEER ISMAEL HERNANDEZ M.D. Performed By: #### U A #### [facility] [address] [place] [address] [place] pH (U) 5.5 [pH] Normal 5.0-9.0 [facility] Comment on above: Order Comment: Name Collection Type:: Clean-Voided Midstream Performed By: #### U A #### [facility] [address] [place] [address] [place] Protein,Urine Negative Normal Negative [facility] Comment on above: Order Comment: Name Collection Type:: Clean-Voided Midstream Performed By: #### U A #### [address] Specificy [place],Urine 1.015 Normal 1.001-1.03 0 [facility] Comment on above: Order Comment: Name Collection Type:: Clean-Voided Midstream Performed By: #### U A #### [facility] [address] [place] [address] [place] Urobilinogen,Urine Normal Normal Normal [facility] Comment on above: Order Comment: Name Collection Type:: Clean-Voided Midstream Performed By: #### U A #### [facility] [address] [place] [address] [place] Urine clarity by refractomet ry automatedOrdered By: Andrea Govea on 04-28-2023 Clarity Refractometry automated (U) Clear Clear [facility] Urine glucose measurement by automated test strip (mass/volume)Ordered By: Andrea Govea on 04-28-2023 Glucose Auto test strip (U) [Mass/Vol] Normal mg/dL Normal [facility] Urine hemoglobin detection b y automated test stripOrdered By: Andrea Govea on 04-28-2023 Hemoglobin Auto test strip Ql (U) Negative Negative [facility] Urine leukocyte esterase det ection by automated test stripOrdered By: Andrea Govea on 04-28-2023 Leukocyte esterase Auto test strip Ql (U) Negative Negative [facility] Urobilinogen Auto test strip (U) [Mass/Vol]Ordered By: Andrea Govea on 04-28-2023 Urobilinogen (U) [Mass/Vol] Normal mg/dL Normal [facility] WBC Auto (Bld) [#/Vol]Ordere d By: Andrea Govea on 04-28-2023 WBC (Bld) [#/Vol] 8.0 10*3/uL 4.1-10.5 [facility] pH Auto test strip (U)Ordere d By: Andrea Govea on 04-28-2023 pH (U) 5.5 [pH] 5.0-9.0 [facility] A1C with Estimated Average G luon 04-01-2023 Glucose [Mass/Vol] 114 mg/dL Normal [facility] Comment on above: Order Comment: Reaso n for Exam Age-related osteoporosis without current pathological fractu Result Comment: PERF ORMED BY: [facility] [address] [place] [address] PATHOLOGIST AUTOMATION TEST ENGINEER ISMAEL HERNANDEZ M.D. Performed By: #### C UMRSA, A1C WTH eA, HGB, [id number], ALB #### [place] [address] [place] #### NICOTINE #### [facility] , HbA1c (Bld) [Mass fraction] 5.6 % Normal 4.3-5.6 [facility] Comment on above: Order Comment: Reaso n for Exam Age-related osteoporosis without current pathological fractu Result Comment: Incr eased risk for diabetes: 5.7 - 6.4 diabetes: >6.4 glycemic control for adults with diabetes: <7.0 Performed By: #### C UMRSA, A1C WTH eA, HGB, [id number], ALB #### [address] #### NICOTINE #### [facility] , Albumin Levelon 04-01-2023 Albumin [Mass/Vol] 4.0 g/dL Normal 3.5-5.7 [facility] Comment on above: Order Comment: Reaso n for Exam Age-related osteoporosis without current pathological fractu FASTING. JKW Performed By: #### C UMRSA, A1C WTH eA, HGB, [id number], ALB #### [place] [address] [place] #### NICOTINE #### [facility] , Albumin [Mass/volume] in Ser um or Plasma by Bromocresol green (BCG) dye binding methoOrdered By: Andrea Govea on 04-01-2023 Albumin BCG dye [Mass/Vol] 4.0 g/dL 3.5-5.7 [facility] Cotinine [Mass/volume] in Se rum or PlasmaOrdered By: Andrea Govea on 04-01-2023 Cotinine [Mass/Vol] <1.0 ng/mL . [facility] Comment on above: This test was develo ped and its performance characteristicsdetermined by [facility]. It has not been cleared orapproved by the Food and Drug Administration.Cotinine levels greater than 20.0 are consistent with theuse of tobacco or tobacco cessation products.Performed at: - [facility] [id number] Director: Daniel Ann MD, Phone: [phone] Glucose mean value [Mass/vol ume] in Blood Estimated from glycated hemoglobinOrdered By: Andrea Govea on 04-01-2023 Average glucose Estimated from glycated hemoglobin (Bld) [Mass/Vol] 114 mg/dL [facility] Hemoglobinon 04-01-2023 Hemoglobin (Bld) [Mass/Vol] 14.3 g/dL Normal 13.0-17.0 [facility] Comment on above: Order Comment: Reaso n for Exam Age-related osteoporosis without current pathological fractu Result Comment: PERF ORMED BY: [place] [address] PATHOLOGIST AUTOMATION TEST ENGINEER ISMAEL HERNANDEZ M.D. Performed By: #### C UMRSA, A1C WTH eA, HGB, [id number], ALB #### [facility] [address] [place] [address] #### NICOTINE #### [facility] , Hemoglobin A1c percentageOrd ered By: Andrea Govea on 04-01-2023 HbA1c (Bld) [Mass fraction] 5.6 % 4.3-5.6 [facility] Comment on above: Increased risk for d iabetes: 5.7 - 6.4diabetes: >6.4glycemic control for adults with diabetes: <7.0 Hemoglobin [Mass/volume] in BloodOrdered By: Andrea Govea on 04-01-2023 Hemoglobin (Bld) [Mass/Vol] 14.3 g/dL 13.0-17.0 [facility] MRSA Cultureon 04-01-2023 MRSA Culture Reason for Exam Age- related osteoporosis without current pathological fractu Nasal Reason for Exam: Age-related osteoporosis without current pathological fractu : Nasal MRSA Culture Results No MRSA Isolated 2 Days PERFORMED BY: [place] [address] PATHOLOGIST AUTOMATION TEST ENGINEER ISMAEL HERNANDEZ M.D. Normal [facility] Comment on above: Performed By: #### C UMRSA, A1C WTH eA, HGB, [id number], ALB #### [facility] [address] [place] [address] [place] #### NICOTINE #### [facility] , Nicotine [Mass/volume] in Se rum or PlasmaOrdered By: Andrea Govea on 04-01-2023 Nicotine [Mass/Vol] <1.0 ng/mL . [facility] Comment on above: This test was develo ped and its performance characteristicsdetermined by [facility] [employer]. It has not been cleared orapproved by the Food and Drug Administration.Nicotine levels greater than 2.0 are consistent with theuse of tobacco or tobacco cessation products. Nicotine/Cotinine Bloodon Cotinine, Blood <1.0 Normal . [facility] Comment on above: Order Comment: Reaso n for Exam Age-related osteoporosis without current pathological fractu Result Comment: This test was developed and its performance characteristics determined by [employer]. It has not been cleared or approved by the Food and Drug Administration. Cotinine levels greater than 20.0 are consistent with the use of tobacco or tobacco cessation products. Performed at: [address] [id number] Video Game Tester: Daniel Ann MD, Phone: [phone] PERFORMED BY: [place] [address] PATHOLOGIST AUTOMATION TEST ENGINEER ISMAEL HERNANDEZ M.D. Performed By: #### C UMRSA, A1C WT eA, HGB, [id number], ALB #### [facility] [address] [place] [address] [place] #### NICOTINE #### [facility] , Nicotine, Blood <1.0 Normal . [facility] Comment on above: Order Comment: Reaso n for Exam Age-related osteoporosis without current pathological fractu Result Comment: This test was developed and its performance characteristics determined by [email or web address]. It has not been cleared or approved by the Food and Drug Administration. Nicotine levels greater than 2.0 are consistent with the use of tobacco or tobacco cessation products. Performed By: #### C UMRSA, A1C WTH eA, HGB, [id number], ALB #### [place] [address] [place] #### NICOTINE #### [facility] , Vitamin D 25 Hydroxy Totalon 04-01-2023 Vitamin D 25 Hydroxy Total 87.1 ng/mL Normal 30-100 [facility] Comment on above: Order Comment: Reaso n for Exam Age-related osteoporosis without current pathological fractu FASTING. JKW Result Comment: KAY MIN D STATUS 25(OH)VITAMIN D RANGE (ng/mL) Deficient <20 Insufficient 20 to <30 Sufficient 30 to 100 Reference: Vicenta Hendricks, Marcelo MASCORRO, et al. Evaluation,treatment, and prevention of vitamin D deficiency; an Endocrine Society clinical practice guideline. JCEM. 2010; 96(7):191-. PERFORMED BY: [place] [address] PATHOLOGIST AUTOMATION TEST ENGINEER ISMAEL HERNANDEZ M.D. Performed By: #### C UMRSA, A1C WTH eA, HGB, [id number], ALB #### [address] #### NICOTINE #### [facility] , Vitamin D+Metabolites [Mass/ volume] in Serum or PlasmaOrdered By: Andrea Govea on 04-01-2023 Vitamin D+Metabolites [Mass/Vol] 87.1 ng/mL 30-100 [facility] Comment on above: VITAMIN D STATUS 25( [place])VITAMIN D RANGE (ng/mL) Deficient <20 Insufficient 20 to <30Sufficient 30 to 100Reference: Vicenta Hendricks, Marcelo MASCORRO, et al. Evaluation,treatment, and prevention of vitamin D deficiency; an Endocrine Society clinical practice guideline. JCEM. 2010; 96(7):191-. Wound methicillin resistant Staphylococcus aureus (MRSA) cultureOrdered By: Andrea Govea on 04-01-2023 MRSA isol Org specific cx Ql (Unsp spec) [facility] MRSA isol Org specific cx Ql (Unsp spec) [facility] XR knee LT 4V*on 04-01-2023 XR knee LT 4V* [facility] Main [place] [id number] XRay Report Signed Patient: Al Kuo MR#: [id number] : 1945 Acct:[id number] Age/Sex: 77 / M ADM Date: 04/01/23 Loc[place] [facility] [place] [facility] Dr: Andrea Govea II, MD [...] Drew Duran M.D.04/01/2023 12:40 PM Dictation Location: [place] [address] Transcribed By: [facility] 04/01/23 1240 Dictated By: Drew Duran II, MD 04/01/23 1239 Signed By: 04/01/23 1240 Normal [facility] XR knee RT 3V - NOT FOR ER U Yamileth 04-01-2023 XR knee RT 3V - NOT FOR ER USE [facility] Main [address] [address] XRay Report Signed Patient: Al Kuo MR#: [id number] : 1945 Acct:[id number] Age/Sex: 77 / M ADM Date: 04/01/23 [...] Drew Duran M.D.04/01/2023 12:39 PM Dictation Location: [place] [address] Transcribed By: [facility] 04/01/23 1239 Dictated By: Drew Duran II, MD 04/01/23 1237 Signed By: 04/01/23 1239 Normal [facility] XR pelvis 1-2Von 04-01-2023 XR pelvis 1-2V [facility] [place] [address] XRay Report Signed Patient: Al Kuo MR#: [id number] : 1945 Acct:[id number] Age/Sex: 77 / M ADM Date: 04/01/23 [...] Drew Duran M.D.04/01/2023 12:35 PM Dictation Location: [facility] Transcribed By: GIULIA 04/01/23 123 Dictated By: Drew Duran II, MD 04/01/231232 Signed By: 04/01/23 123 [facility] Falls Screening (Age 18+)on 02-03-2023 Fall risk assessment a) No falls within the last year [facility] a 320 DO Work Phone: Office Visit [...] extremity Doppler done in the past at [place] and it was negative for DVT and [...] History of Colectomy partial History of Colonoscopy [id number] History of Hernia repair History of Knee [...] Vital Signs Recorded: 03Feb2023 03:51PM Heart Rate78 [id number], RUE, Sitting [id number], RUE, Sitting Height5 ft 10 in (more content not included)... Normal [employer] [facility] CARDIAC STRESS/REST INJE CTIONon 09-08-2022 [facility] CARDIAC STRESS/REST INJECTION Patient Name: AL KUO STUDY: MYOCARDIAL PERFUSION STRESS TEST WITH LEXISCAN Performing facility: [facility] [place], [address] [place] [address], [address], [place] [id number] [facility] Provider: Jammie Velasquez MD PCP: Dr. Long Dodd Supervising provider: Ericka Collins RN, MERCHANDISE PRESENTATION ASSOCIATE INDICATION: Dyspnea HISTORY: Gender: M; Age: 77 y/o ; Height: 0 cm; Weight: 0 kg. HTN; Arrhythmias; Edema Quit smoking 22 years ago. COMPARISON: No comparison. ACCESSION NUMBER(S): [id number]; [id number]; [id number] ORDERING CLINICIAN: MOURHAF TRABOULSSI TECHNIQUE: TWO DAY [...] Electronically signed by: CHENG LUND MD Normal [facility] No Panel Informationon 09-08 Normal -[facility] Work Phone: Office Visit (Cardiology)on [...] extremity Doppler done in the past at [place] and it was negative for DVT and [...] History of Colectomy partial History of Colonoscopy [id number] History of Hernia repair History of Knee [...] 07/07 PPD (more content not included)... Normal [facility] [place] Tobacco Screening.on 023 Adult depression screening assessment No [facility] [employer] viola 250 DO Work Phone: Fall risk assessment a) No falls within the last year [facility] [employer] viola 250 DO Work Phone: Tobacco use status [facility] b) No -[facility] Heart[employer] viola 250 DO Work Phone: Creatinine and Glomerular fi ltration rate.predicted panel (S/P/Bld)Ordered By: Tommy Bah on 04-27-2022 Creatinine [Mass/Vol] 1.05 mg/dL 0.64-1.27 [facility] Estimated glomerular filtrat ion rate (GFR) non- AmericanOrdered By: Tommy Bah on 04-27-2022 GFR/1.73 sq M.predicted among non-blacks MDRD (S/P/Bld) [Vol rate/Area] > 60 mL/Min [facility] No Panel InformationOrdered By: Tommy Bah on 04-27-2022 Estimated GFR () > 60 mL/Min [facility] Comment on above: GFR estimated refere nce range: According to KDOQI guidelines, <60 ml/min/1.73m2 is sufficient to diagnose a patient with chronic kidney disease. Pharmacy Creatinine Clearance (Chem 80.00 [facility] Serum or plasma anion gap de terminationOrdered By: Tommy Bah on 04-27-2022 Anion gap [Moles/Vol] 10.1 mmol/L 6.0-15.0 [facility] Serum or plasma calcium rolando urement (mass/volume)Ordered By: Tommy Bah on 04-27-2022 Calcium [Mass/Vol] 8.7 mg/dL 8.2-10.2 [facility] Serum or plasma chloride miya surement (moles/volume)Ordered By: Tommy Bah on 04-27-2022 Chloride [Moles/Vol] 100 mmol/L 95-114 [facility] Serum or plasma glucose rolando urement (mass/volume)Ordered By: Tommy Bah on 04-27-2022 Glucose [Mass/Vol] 135 mg/dL 70-100 [facility] Comment on above: ADA recommended refe rence rangeRandom Glucose Reference Range is dependent on time and content of last meal. Glucose of more than 200 mg/dL in a nonstressed, ambulatory subject supports the diagnosis of Diabetes Mellitus. Serum or plasma potassium me asurement (moles/volume)Ordered By: Tommy Bah on 04-27-2022 Potassium [Moles/Vol] 3.5 mmol/L 3.5-5.1 [facility] Serum or plasma sodium measu rement (moles/volume)Ordered By: Tommy Bah on 04-27-2022 Sodium [Moles/Vol] 136 mmol/L 136-146 [facility] Serum or plasma total carbon dioxide measurement (moles/volume)Ordered By: Tommy Bah on 04-27-2022 CO2 [Moles/Vol] 29.4 mmol/L 22.0-30.0 [facility] Serum or plasma urea nitroge n measurement (mass/volume)Ordered By: Tommy Bah on 04-27-2022 Urea nitrogen [Mass/Vol] 21 mg/dL 03-28 [facility] Basophils Auto (Bld) [#/Vol] Ordered By: Rain Ramos on 04-21-2022 Basophils (Bld) [#/Vol] 0.0 10*3/uL 0.0-0.2 [facility] Basophils/100 WBC Auto (Bld) Ordered By: Rain Ramos on 04-21-2022 Basophils/100 WBC (Bld) 0.3 % . [facility] Eosinophils Auto (Bld) [#/Vo l]Ordered By: Rain Ramos on 04-21-2022 Eosinophils (Bld) [#/Vol] 0.3 10*3/uL 0.0-0.45 [facility] Eosinophils/100 WBC Auto (Bl d)Ordered By: Rain Ramos on 04-21-2022 Eosinophils/100 WBC (Bld) 2.4 % . [facility] Erythrocyte distribution wid th Auto (RBC) [Ratio]Ordered By: Rain Ramos on 04-21-2022 Erythrocyte distribution width (RBC) [Ratio] 14.2 % 12.0-14.8 [facility] Hematocrit Auto (Bld) [Volum e fraction]Ordered By: Rain Ramos on 04-21-2022 Hematocrit (Bld) [Volume fraction] 27.0 % 38.8-50.0 [facility] Hemoglobin [Mass/volume] in BloodOrdered By: Rain Ramos on 04-21-2022 Hemoglobin (Bld) [Mass/Vol] 9.3 g/dL 13.0-17.0 [facility] Laboratory - Hematology and Cell countsOrdered By: Rain Ramos on 04-21-2022 Nucleated RBC/100 WBC (Bld) [Ratio] 0.1 % 0-0.5 [facility] Leukocytes [#/volume] in Blo od by Automated countOrdered By: Rain Ramos on 04-21-2022 WBC (Bld) [#/Vol] 10.5 10*3/uL 4.5-11.0 [facility] Lymphocytes Auto (Bld) [#/Vo l]Ordered By: Rain Ramos on 04-21-2022 Lymphocytes (Bld) [#/Vol] 0.6 10*3/uL 1.00-4.8 [facility] Lymphocytes/100 WBC Auto (Bl d)Ordered By: Rain Ramos on 04-21-2022 Lymphocytes/100 WBC (Bld) 5.6 % . [facility] MCH Auto (RBC) [Entitic mass ]Ordered By: Rain Ramos on 04-21-2022 MCH (RBC) [Entitic mass] 36.0 pg 27.5-35.2 [facility] MCHC Auto (RBC) [Mass/Vol]Or dered By: Rain Ramos on 04-21-2022 MCHC (RBC) [Mass/Vol] 34.6 g/dL 32.5-35.6 [facility] MCV Auto (RBC) [Entitic vol] Ordered By: Rain Ramos on 04-21-2022 MCV (RBC) [Entitic vol] 104.0 fL 83.5-101 [facility] Monocytes Auto (Bld) [#/Vol] Ordered By: Rain Ramos on 04-21-2022 Monocytes (Bld) [#/Vol] 0.9 10*3/uL 0.0-0.8 [facility] Monocytes/100 WBC Auto (Bld) Ordered By: Rain Ramos on 04-21-2022 Monocytes/100 WBC (Bld) 8.5 % . [facility] Neutrophils Auto (Bld) [#/Vo l]Ordered By: Rain Ramos on 04-21-2022 Neutrophils (Bld) [#/Vol] 8.7 10*3/uL 1.8-7.7 [facility] Neutrophils/100 WBC Auto (Bl d)Ordered By: Rain Ramos on 04-21-2022 Neutrophils/100 WBC (Bld) 83.2 % . [facility] Platelet mean volume Auto (B ld) [Entitic vol]Ordered By: Rain Ramos on 04-21-2022 Platelet mean volume (Bld) [Entitic vol] 7.9 fL 6.6-10.1 [facility] Platelets Auto (Bld) [#/Vol] Ordered By: Rain Ramos on 04-21-2022 Platelets (Bld) [#/Vol] 180 10*3/uL 150-450 [facility] RBC Auto (Bld) [#/Vol]Ordere d By: Rain Ramos on 04-21-2022 RBC (Bld) [#/Vol] 2.59 10*6/uL 3.90-5.60 [facility] [address] biopsyOrdered By: Rain naidu on 04-18-2022 Transferrin [Mass/Vol] 144 mg/dL 180-380 [facility] Folate [Mass/volume] in Seru m or PlasmaOrdered By: Rain Ramos on 04-18-2022 Folate [Mass/Vol] 20.3 ng/mL >5.9 [facility] Comment on above: Folate reference ran ge: >5.9 ng/mlThe WHO technical consultation on folate and vitamin [id number] has determined that folate concentrations lessthan 4 ng/ml are considered deficient. Iron [Mass/volume] in Serum or PlasmaOrdered By: Rain Ramos on 04-18-2022 Iron [Mass/Vol] 23 ug/dL 40-160 [facility] Iron binding capacity [Mass/ volume] in Serum or PlasmaOrdered By: Rain Ramos on 04-18-2022 Iron binding capacity [Mass/Vol] 202 ug/dL 255-450 [facility] Iron saturation [Mass Fracti on] in Serum or PlasmaOrdered By: Rain Ramos on 04-18-2022 Iron saturation [Mass fraction] 11.0 % 20-50 [facility] Laboratory - Chemistry and C hemistry - challengeOrdered By: Rain Ramos on 04-18-2022 Cobalamin (Vitamin B12) [Mass/Vol] 1866 pg/mL 180-914 [facility] TSH DL <= 0.005 mIU/L QnOrde red By: Rain Ramos on 04-18-2022 TSH Qn 1.28 m[IU]/L 0.45-5.33 [facility] Thyroxine (T4) free [Mass/vo lume] in Serum or PlasmaOrdered By: Rain Ramos on 04-18-2022 Free T4 [Mass/Vol] 1.06 ng/dL 0.61-1.12 [facility] Bilirubin Test strip Ql (U)O rdered By: Lillian Harris on 04-17-2022 Bilirubin Ql (U) Negative Negative [facility] Color Auto (U)Ordered By: Wu Harris on 04-17-2022 Color (U) Yellow Yellow [facility] Ketones Auto test strip (U) [Mass/Vol]Ordered By: Lillian Harris on 04-17-2022 Ketones (U) [Mass/Vol] Negative [facility] Nitrite Test strip Ql (U)Ord ered By: Lillian Harris on 04-17-2022 Nitrite Ql (U) Negative Negative [facility] Protein Auto test strip (U) [Mass/Vol]Ordered By: Lillian Harris on 04-17-2022 Protein (U) [Mass/Vol] Negative Negative Fi [facility] Specific gravity Auto test s trip (U) [Rel density]Ordered By: Lillian Harris on 04-17-2022 Specific gravity (U) [Rel density] 1.020 1.001-1.03 0 [facility] Urine clarity by refractomet ry automatedOrdered By: Lillian Harris on 04-17-2022 Clarity Refractometry automated (U) Clear Clear [facility] Urine glucose measurement by automated test strip (mass/volume)Ordered By: Lillian Harris on 04-17-2022 Glucose Auto test strip (U) [Mass/Vol] Normal mg/dL Normal [facility] Urine hemoglobin detection b y automated test stripOrdered By: Lillian Harris on 04-17-2022 Hemoglobin Auto test strip Ql (U) Negative Negative [facility] Urine leukocyte esterase det ection by automated test stripOrdered By: Lillian Harris on 04-17-2022 Leukocyte esterase Auto test strip Ql (U) Negative Negative [facility] Urobilinogen Auto test strip (U) [Mass/Vol]Ordered By: Lillian aHrris on 04-17-2022 Urobilinogen (U) [Mass/Vol] Normal mg/dL Normal [facility] pH Auto test strip (U)Ordere d By: Lillian Harris on 04-17-2022 pH (U) 5.5 [pH] 5.0-9.0 [facility] Albumin [Mass/volume] in Ser um or PlasmaOrdered By: Lillian Harris on 04-16-2022 Albumin [Mass/Vol] 2.6 g/dL 3.2-5.5 [facility] Globulin Calc (S) [Mass/Vol] Ordered By: Lillian Harris on 04-16-2022 Globulin (S) [Mass/Vol] 2.4 g/dL [facility] Protein [Mass/volume] in Ser um or PlasmaOrdered By: Lillian Harris on 04-16-2022 Protein [Mass/Vol] 5.0 g/dL 6.1-7.9 [facility] Serum or plasma alanine carson otransferase measurement without P-5'-P (enzymatic activiOrdered By: Lillian Harris on 04-16-2022 ALT No additional P-5'-P [Catalytic activity/Vol] 7 U/L 10 [facility] Serum or plasma albumin/glob ulin mass ratioOrdered By: Lillian Harris on 04-16-2022 Albumin/Globulin [Mass ratio] 1.1 {ratio} [facility] Serum or plasma alkaline pablito sphatase measurement (enzymatic activity/volume)Ordered By: Lillian Harris on 04-16-2022 ALP [Catalytic activity/Vol] 38 U/L 32-92 [facility] Serum or plasma aspartate am inotransferase measurement (enzymatic activity/volume)Ordered By: Lillian Harris on 04-16-2022 AST [Catalytic activity/Vol] 13 U/L 10 [facility] Serum or plasma prealbumin m easurement (mass/volume)Ordered By: Lillian Harris on 04-16-2022 Prealbumin [Mass/Vol] 15.3 mg/dL 18.0-38.0 [facility] Serum or plasma total biliru bin measurement (mass/volume)Ordered By: Lillian Harris on 04-16-2022 Bilirubin [Mass/Vol] 0.8 mg/dL 0.3-1.2 [facility] Basophils Auto (Bld) [#/Vol] Ordered By: Andrea Govea on 04-15-2022 Basophils (Bld) [#/Vol] 0.0 10*3/uL 0.0-0.2 [facility] Basophils/100 WBC Auto (Bld) Ordered By: Andrea Govea on 04-15-2022 Basophils/100 WBC (Bld) 0.1 % . [facility] Blood hemoglobin measurement (mass/volume)Ordered By: Andrea Govea on 04-15-2022 Hemoglobin (Bld) [Mass/Vol] 10.4 g/dL 13.0-17.0 [facility] Blood leukocytes automated c ount (number/volume)Ordered By: Andrea Govea on 04-15-2022 WBC (Bld) [#/Vol] 12.1 10*3/uL 4.5-11.0 [facility] COVID-19 Positive/NegativeOr dered By: Andrea Govea on 04-15-2022 SARS-CoV-2 (COVID-19) N gene MALIHA+probe Ql (Resp) Negative Negative [facility] Comment on above: Testing for SARS-CoV -2 by RT-PCRThis test was developed and its performance characteristics determined by [employer] ([employer]) and validated at the [facility]. This test has not been FDA cleared [...] on 04-15-2022 Creatinine [Mass/Vol] 1.20 mg/dL 0.64-1.27 [facility] Eosinophils Auto (Bld) [#/Vo l]Ordered By: Andrea Govea on 04-15-2022 Eosinophils (Bld) [#/Vol] 0.0 10*3/uL 0.0-0.45 [facility] Eosinophils/100 WBC Auto (Bl d)Ordered By: Andrea Govea on 04-15-2022 Eosinophils/100 WBC (Bld) 0.0 % . [facility] Erythrocyte distribution wid th Auto (RBC) [Ratio]Ordered By: Andrea Govea on 04-15-2022 Erythrocyte distribution width (RBC) [Ratio] 14.0 % 12.0-14.8 [facility] Estimated glomerular filtrat ion rate (GFR) non- AmericanOrdered By: Andrea Govea on 04-15-2022 GFR/1.73 sq M.predicted among non-blacks MDRD (S/P/Bld) [Vol rate/Area] 59 mL/Min [facility] Folate [Mass/volume] in Seru m or PlasmaOrdered By: Tonya Mcgregor on 04-15-2022 Folate [Mass/Vol] 5.0 ng/mL >5.9 [facility] Comment on above: Folate reference ran ge: >5.9 ng/mlThe WHO technical consultation on folate and vitamin [id number] has determined that folate concentrations lessthan 4 ng/ml are considered deficient. Hematocrit Auto (Bld) [Volum e fraction]Ordered By: Andrea Govea on 04-15-2022 Hematocrit (Bld) [Volume fraction] 30.2 % 38.8-50.0 [facility] Laboratory - Chemistry and C hemistry - challengeOrdered By: Tonya Mcgregor on 04-15-2022 Cobalamin (Vitamin B12) [Mass/Vol] 238 pg/mL 180-914 [facility] Laboratory - Hematology and Cell countsOrdered By: Andrea Govea on 04-15-2022 Nucleated RBC/100 WBC (Bld) [Ratio] 0.0 % 0-0.5 [facility] Lymphocytes Auto (Bld) [#/Vo l]Ordered By: Andrea Govea on 04-15-2022 Lymphocytes (Bld) [#/Vol] 0.4 10*3/uL 1.00-4.8 [facility] Lymphocytes/100 WBC Auto (Bl d)Ordered By: Andrea Govea on 04-15-2022 Lymphocytes/100 WBC (Bld) 3.5 % . [facility] MCH Auto (RBC) [Entitic mass ]Ordered By: Andrea Govea on 04-15-2022 MCH (RBC) [Entitic mass] 35.5 pg 27.5-35.2 [facility] MCHC Auto (RBC) [Mass/Vol]Or dered By: Andrea Govea on 04-15-2022 MCHC (RBC) [Mass/Vol] 34.5 g/dL 32.5-35.6 [facility] MCV Auto (RBC) [Entitic vol] Ordered By: Andrea Govea on 04-15-2022 MCV (RBC) [Entitic vol] 103.0 fL 83.5-101 [facility] Monocytes Auto (Bld) [#/Vol] Ordered By: Andrea Govea on 04-15-2022 Monocytes (Bld) [#/Vol] 0.6 10*3/uL 0.0-0.8 [facility] Monocytes/100 WBC Auto (Bld) Ordered By: Andrea Govea on 04-15-2022 Monocytes/100 WBC (Bld) 4.8 % . [facility] Neutrophils Auto (Bld) [#/Vo l]Ordered By: Andrea Govea on 04-15-2022 Neutrophils (Bld) [#/Vol] 11.1 10*3/uL 1.8-7.7 [facility] Neutrophils/100 WBC Auto (Bl d)Ordered By: Andrea Govea on 04-15-2022 Neutrophils/100 WBC (Bld) 91.6 % . [facility] No Panel InformationOrdered By: Andrea Govea on 04-15-2022 Estimated GFR () > 60 mL/Min [facility] Comment on above: GFR estimated refere nce range: According to KDOQI guidelines, <60 ml/min/1.73m2 is sufficient to diagnose a patient with chronic kidney disease. Pharmacy Creatinine Clearance (Chem 70.06 [facility] Platelet mean volume Auto (B ld) [Entitic vol]Ordered By: Andrea Govea on 04-15-2022 Platelet mean volume (Bld) [Entitic vol] 7.6 fL 6.6-10.1 [facility] Platelets Auto (Bld) [#/Vol] Ordered By: Andrea Govea on 04-15-2022 Platelets (Bld) [#/Vol] 128 10*3/uL 150-450 [facility] RBC Auto (Bld) [#/Vol]Ordere d By: Andrea Govea on 04-15-2022 RBC (Bld) [#/Vol] 2.93 10*6/uL 3.90-5.60 [facility] Serum or plasma anion gap de terminationOrdered By: Andrea Govea on 04-15-2022 Anion gap [Moles/Vol] 13.9 mmol/L 6.0-15.0 [facility] Serum or plasma calcium rolando urement (mass/volume)Ordered By: Andrea Govea on 04-15-2022 Calcium [Mass/Vol] 8.9 mg/dL 8.2-10.2 [facility] Serum or plasma chloride miya surement (moles/volume)Ordered By: Andrea Govea on 04-15-2022 Chloride [Moles/Vol] 94 mmol/L 95-114 [facility] Serum or plasma glucose rolando urement (mass/volume)Ordered By: Andrea Govea on 04-15-2022 Glucose [Mass/Vol] 192 mg/dL 70-100 [facility] Comment on above: ADA recommended refe rence rangeRandom Glucose Reference Range is dependent on time and content of last meal. Glucose of more than 200 mg/dL in a nonstressed, ambulatory subject supports the diagnosis of Diabetes Mellitus. Serum or plasma potassium me asurement (moles/volume)Ordered By: Andrea Govea on 04-15-2022 Potassium [Moles/Vol] 4.6 mmol/L 3.5-5.1 [facility] Serum or plasma sodium measu rement (moles/volume)Ordered By: Andrea Govea on 04-15-2022 Sodium [Moles/Vol] 128 mmol/L 136-146 [facility] Serum or plasma total carbon dioxide measurement (moles/volume)Ordered By: Andrea Govea on 04-15-2022 CO2 [Moles/Vol] 24.7 mmol/L 22.0-30.0 [facility] Serum or plasma urea nitroge n measurement (mass/volume)Ordered By: Andrea Govea on 04-15-2022 Urea nitrogen [Mass/Vol] 21 mg/dL 9-23 [facility] TSH DL <= 0.005 mIU/L QnOrde red By: Tonya Mcgregor on 04-15-2022 TSH Qn 0.42 m[IU]/L 0.45-5.33 [facility] COVID-19 Positive/NegativeOr dered By: Andrea Govea on 04-10-2022 SARS-CoV-2 (COVID-19) N gene MALIHA+probe Ql (Resp) Negative Negative [facility] Comment on above: Testing for SARS-CoV -2 by RT-PCRThis test was developed and its performance characteristics determined by [employer] and validated at the [facility]. This test has not been FDA cleared [...] Anion gap [Moles/Vol] 12.3 mmol/L Normal [facility] Comment on above: Performed By: #### B MP #### [facility] [address] [place] [address] Dr. Jonelle Lechuga Calcium [Mass/Vol] 9.0 mg/dL Normal 8.5-10.1 [facility] Comment on above: Performed By: #### B MP #### [facility] [address] [place] [address] Dr. Jonelle Lechuga Chloride [Moles/Vol] 95 mmol/L Critically low 98-107 [facility] Comment on above: Performed By: #### B MP #### [facility] [address] [place] [address] Dr. Jonelle Lechuga CO2 [Moles/Vol] 27.5 mmol/L Normal 21.0-32.0 [facility] Comment on above: Performed By: #### B MP #### [facility] [address] [place] [address] Dr. Jonelle Lechuga Creatinine [Mass/Vol] 1.58 mg/dL Critically high 0.70-1.30 [facility] Comment on above: Performed By: #### B MP #### [facility] [address] [place] [address] Dr. Jonelle Lechuga EGFR-AF CYPRIOT 52 mL/min/1.73m2 Critically low >=60 [facility] Comment on above: Performed By: #### B MP #### [facility] [address] [place] [address] [address] Jonelle Lechuga EGFR-NON AF CYPRIOT 43 mL/min/1.73m2 Critically low >=60 [facility] Comment on above: Performed By: #### B MP #### [facility] [address] [place] [address] [address] Jonelle Lechuga Glucose [Mass/Vol] 140 mg/dL Critically high 74-106 [facility] Comment on above: Performed By: #### B MP #### [facility] [address] [place] [address] [address] Jonelle Lechuga Potassium [Moles/Vol] 4.8 mmol/L Normal 3.5-5.1 [facility] Comment on above: Performed By: #### B MP #### [facility] Laboratory [address] [address] [address] Jonelle Lechuga Sodium [Moles/Vol] 130 mmol/L Critically low 136-145 [facility] Comment on above: Performed By: #### B MP #### [facility] Laboratory [address] [address] [address] Jonelle Lechuga Urea nitrogen [Mass/Vol] 28.0 mg/dL Critically high 7.0-18.0 [facility] Comment on above: Performed By: #### B MP #### [facility] Laboratory [address] [address] [address] Jonelle Lechuga Urea nitrogen/Creatinine [Mass ratio] 17.7 mg/mg Normal [facility] Comment on above: Performed By: #### B MP #### [facility] Laboratory [address] [address] [address] Jonelle Lechuga Automated erythrocytes count in urine sediment (number/area)Ordered By: Andrea Govea on 03-31-2022 RBC Auto (Urine sed) [#/Area] 0-1 [HPF] 0-4 [facility] Automated leukocytes count i n urine sediment (number/area)Ordered By: Andrea Govea on 03-31-2022 WBC Auto (Urine sed) [#/Area] 0-1 [HPF] 0-4 [facility] Basophils Auto (Bld) [#/Vol] Ordered By: Andrea Govea on 03-31-2022 Basophils (Bld) [#/Vol] 0.0 10*3/uL 0.0-0.2 [facility] Basophils/100 WBC Auto (Bld) Ordered By: Andrea Govea on 03-31-2022 Basophils/100 WBC (Bld) 0.2 % . [facility] Bilirubin Test strip Ql (U)O rdered By: Andrea Govea on 03-31-2022 Bilirubin Ql (U) Negative Negative [facility] Blood hemoglobin measurement (mass/volume)Ordered By: Andrea Govea on 03-31-2022 Hemoglobin (Bld) [Mass/Vol] 11.7 g/dL 13.0-17.0 [facility] Blood leukocytes automated c ount (number/volume)Ordered By: Andrea Govea on 03-31-2022 WBC (Bld) [#/Vol] 9.1 10*3/uL 4.5-11.0 [facility] CT biopsyOrdered By: Andrea Govea on 03-31-2022 CT biopsy 261 umol/L 0-285 [facility] Comment on above: Published reference interval for apparently healthysubjects between age 20 and 60 is 205 - 285 umol/L and in apoorly controlled diabetic population is 228 - 563 umol/Lwith a mean of 396 umol/L.Performed at: [facility] [id number] Director: Mango Cantu PhD, Phone: [phone] Color Auto (U)Ordered By: Silvina Govea on 03-31-2022 Color (U) Dark yellow Yellow [facility] Creatinine and Glomerular fi ltration rate.predicted panel (S/P/Bld)Ordered By: Andrea Govea on 03-31-2022 Creatinine [Mass/Vol] 1.80 mg/dL 0.64-1.27 [facility] Eosinophils Auto (Bld) [#/Vo l]Ordered By: Andrea Govea on 09-26-2022 Eosinophils (Bld) [#/Vol] 0.1 10*3/uL 0.0-0.45 [facility] Eosinophils/100 WBC Auto (Bl d)Ordered By: Andrea Govea on 03-31-2022 Eosinophils/100 WBC (Bld) 1.5 % . [facility] Erythrocyte distribution wid th Auto (RBC) [Ratio]Ordered By: Andrea Govea on 03-31-2022 Erythrocyte distribution width (RBC) [Ratio] 14.0 % 12.0-14.8 [facility] Estimated glomerular filtrat ion rate (GFR) non- AmericanOrdered By: Andrea Govea on 03-31-2022 GFR/1.73 sq M.predicted among non-blacks MDRD (S/P/Bld) [Vol rate/Area] 37 mL/Min [facility] Hematocrit Auto (Bld) [Volum e fraction]Ordered By: Andrea Govea on 03-31-2022 Hematocrit (Bld) [Volume fraction] 32.9 % 38.8-50.0 [facility] Ketones Auto test strip (U) [Mass/Vol]Ordered By: Andrea Govea on 03-31-2022 Ketones (U) [Mass/Vol] 1+ Negative [facility] Laboratory - Hematology and Cell countsOrdered By: Andrea Govea on 03-31-2022 Nucleated RBC/100 WBC (Bld) [Ratio] 0.0 % 0-0.5 [facility] Laboratory - UrinalysisOrder ed By: Andrea Govea on 03-31-2022 Hyaline casts LM Ql (Urine sed) 9-19 [LPF] 0-8 [facility] Lymphocytes Auto (Bld) [#/Vo l]Ordered By: Andrea Govea on 03-31-2022 Lymphocytes (Bld) [#/Vol] 0.8 10*3/uL 1.00-4.8 [facility] Lymphocytes/100 WBC Auto (Bl d)Ordered By: Andrea Govea on 03-31-2022 Lymphocytes/100 WBC (Bld) 8.7 % . [facility] MCH Auto (RBC) [Entitic mass ]Ordered By: Andrea Govea on 03-31-2022 MCH (RBC) [Entitic mass] 36.4 pg 27.5-35.2 [facility] MCHC Auto (RBC) [Mass/Vol]Or dered By: Andrea Govea on 03-31-2022 MCHC (RBC) [Mass/Vol] 35.6 g/dL 32.5-35.6 [facility] MCV Auto (RBC) [Entitic vol] Ordered By: Andrea Govea on 03-31-2022 MCV (RBC) [Entitic vol] 102.2 fL 83.5-101 [facility] Monocytes Auto (Bld) [#/Vol] Ordered By: Andrea Govea on 03-31-2022 Monocytes (Bld) [#/Vol] 0.7 10*3/uL 0.0-0.8 [facility] Monocytes/100 WBC Auto (Bld) Ordered By: Andrea Govea on 03-31-2022 Monocytes/100 WBC (Bld) 7.4 % . [facility] Neutrophils Auto (Bld) [#/Vo l]Ordered By: Andrea Govea on 03-31-2022 Neutrophils (Bld) [#/Vol] 7.5 10*3/uL 1.8-7.7 [facility] Neutrophils/100 WBC Auto (Bl d)Ordered By: Andrea Govea on 03-31-2022 Neutrophils/100 WBC (Bld) 82.2 % . [facility] Nitrite Test strip Ql (U)Ord ered By: Andrea Govea on 03-31-2022 Nitrite Ql (U) Negative Negative [facility] No Panel InformationOrdered By: Andrea Govea on 03-31-2022 Estimated GFR () 44 mL/Min [facility] Comment on above: GFR estimated refere nce range: According to KDOQI guidelines, <60 ml/min/1.73m2 is sufficient to diagnose a patient with chronic kidney disease. Pharmacy Creatinine Clearance (Chem N/A [facility] Platelet mean volume Auto (B ld) [Entitic vol]Ordered By: Andrea Govea on 03-31-2022 Platelet mean volume (Bld) [Entitic vol] 7.5 fL 6.6-10.1 [facility] Platelets Auto (Bld) [#/Vol] Ordered By: Andrea Govea on 03-31-2022 Platelets (Bld) [#/Vol] 155 10*3/uL 150-450 [facility] Protein Auto test strip (U) [Mass/Vol]Ordered By: Andrea Govea on 03-31-2022 Protein (U) [Mass/Vol] Negative Negative [facility] RBC Auto (Bld) [#/Vol]Ordere d By: Andrea Govea on 03-31-2022 RBC (Bld) [#/Vol] 3.22 10*6/uL 3.90-5.60 [facility] Serum or plasma anion gap de terminationOrdered By: Andrea Govea on 03-31-2022 Anion gap [Moles/Vol] 14.1 mmol/L 6.0-15.0 [facility] Serum or plasma calcium rolando urement (mass/volume)Ordered By: Andrea Govea on 03-31-2022 Calcium [Mass/Vol] 9.2 mg/dL 8.2-10.2 [facility] Serum or plasma chloride miya surement (moles/volume)Ordered By: Andrea Govea on 03-31-2022 Chloride [Moles/Vol] 93 mmol/L 95-114 [facility] Serum or plasma glucose rolando urement (mass/volume)Ordered By: Andrea Govea on 03-31-2022 Glucose [Mass/Vol] 121 mg/dL 70-100 [facility] Comment on above: ADA recommended refe rence rangeRandom Glucose Reference Range is dependent on time and content of last meal. Glucose of more than 200 mg/dL in a nonstressed, ambulatory subject supports the diagnosis of Diabetes Mellitus. Serum or plasma potassium me asurement (moles/volume)Ordered By: Andrea Govea on 03-31-2022 Potassium [Moles/Vol] 5.1 mmol/L 3.5-5.1 [facility] Serum or plasma sodium measu rement (moles/volume)Ordered By: Andrea Govea on 03-31-2022 Sodium [Moles/Vol] 129 mmol/L 136-146 [facility] Serum or plasma total carbon dioxide measurement (moles/volume)Ordered By: Andrea Govea on 03-31-2022 CO2 [Moles/Vol] 27.0 mmol/L 22.0-30.0 [facility] Serum or plasma urea nitroge n measurement (mass/volume)Ordered By: Andrea Govea on 03-31-2022 Urea nitrogen [Mass/Vol] 33 mg/dL 9-23 [facility] Specific gravity Auto test s trip (U) [Rel density]Ordered By: Andrea Govea on 03-31-2022 Specific gravity (U) [Rel density] 1.020 1.001-1.03 0 [facility] Squamous epithelial cells de tection in urine sediment by light microscopyOrdered By: Andrea Govea on 03-31-2022 Epithelial cells.squamous LM Ql (Urine sed) 0-1 [HPF] 0-2 [facility] Urine bacteria detection by automated methodOrdered By: Andrea Govea on 03-31-2022 Bacteria Auto Ql (U) None seen None Seen [facility] Urine clarity by refractomet ry automatedOrdered By: Andrea Govea on 03-31-2022 Clarity Refractometry automated (U) Clear Clear [facility] Urine glucose measurement by automated test strip (mass/volume)Ordered By: Andrea Govea on 03-31-2022 Glucose Auto test strip (U) [Mass/Vol] Normal mg/dL Normal [facility] Urine hemoglobin detection b y automated test stripOrdered By: Andrea Govea on 03-31-2022 Hemoglobin Auto test strip Ql (U) Negative Negative [facility] Urine leukocyte esterase det ection by automated test stripOrdered By: Andrea Govea on 03-31-2022 Leukocyte esterase Auto test strip Ql (U) 2+ Negative [facility] Urobilinogen Auto test strip (U) [Mass/Vol]Ordered By: Andrea Govea on 03-31-2022 Urobilinogen (U) [Mass/Vol] Normal mg/dL Normal [facility] pH Auto test strip (U)Ordere d By: Andrea Govea on 03-31-2022 pH (U) 5.5 [pH] 5.0-9.0 [facility] Albumin [Mass/volume] in Ser um or PlasmaOrdered By: Andrea Govea on 02-04-2022 Albumin [Mass/Vol] 3.6 g/dL 3.2-5.5 [facility] Blood hemoglobin measurement (mass/volume)Ordered By: Andrea Govea on 02-04-2022 Hemoglobin (Bld) [Mass/Vol] 12.6 g/dL 13.0-17.0 [facility] Cotinine [Mass/volume] in Se rum or PlasmaOrdered By: Andrea Govea on 02-04-2022 Cotinine [Mass/Vol] <1.0 ng/mL . [facility] Comment on above: This test was develo ped and its performance characteristics determined by [employer]. It has not been cleared or approved by the Food and Drug Administration. Cotinine levels greater than 20.0 are consistent with the use of tobacco or tobacco cessation products. Performed at: [facility] [employer] [id number] Video Game Tester: Daniel Ann MD, Phone: [phone] This test was develo ped and its performance characteristicsdetermined by [employer]. It has not been cleared orapproved by the Food and Drug Administration.Cotinine levels greater than 20.0 are consistent with theuse of tobacco or tobacco cessation products.Performed at: [employer] [id number] Director: Daniel Ann MD, Phone: [phone] Glucose mean value [Mass/vol ume] in Blood Estimated from glycated hemoglobinOrdered By: Andrea Govea on 02-04-2022 Average glucose Estimated from glycated hemoglobin (Bld) [Mass/Vol] 114 mg/dL [facility] Hemoglobin A1c percentageOrd ered By: Andrea Govea on 02-04-2022 HbA1c (Bld) [Mass fraction] 5.6 % 4.3-5.6 [facility] Comment on above: Increased risk for d iabetes: 5.7 - 6.4 diabetes: >6.4 glycemic control for adults with diabetes: <7.0 Increased risk for d iabetes: 5.7 - 6.4diabetes: >6.4glycemic control for adults with diabetes: <7.0 Nicotine [Mass/volume] in Se rum or PlasmaOrdered By: Andrea Govea on 02-04-2022 Nicotine [Mass/Vol] <1.0 ng/mL . [facility] Comment on above: This test was [...] cessation products. No Panel InformationOrdered By: Andrea Govae on 02-04-2022 25-Hydroxy Vitamin D Total 28.5 ng/mL 30-100 [facility] Comment on above: VITAMIN D STATUS 25( [...] a) No falls within the last year [facility] [employer] 250 DO Work Phone: Tobacco use status [facility] b) No [facility] [employer] viola 250 DO Work Phone: Tobacco Screening.on 022 Adult depression screening assessment No [facility] [employer] 250 DO Work Phone: Fall risk assessment a) No falls within the last year [facility] [employer] viol[employer] 250 DO Work Phone: Tobacco use status [facility] b) No -[facility] [employer] viola 250 DO Work Phone: [...] RAHEEM LEBLANCACH Date: 2021-07-22 12:52 Normal [facility]06 SARS-CoV-2 (COVID-19) RNA MALIHA+probe Ql (Unsp spec) Not detected Normal NOT DETECTED [facility] Comment on above: Result Comment: This test is not yet approved or cleared by the [place] FDA. When there are no FDA-approved or cleared tests available, and other criteria are met, FDA can make tests available under an emergency access mechanism called an Emergency Use Authorization (EUA). The EUA for this test is supported by the Technical Training Manager of Health and Human Service's (HHS's) declaration [...] SARS-CoV-2. Performed By: #### C VDTBH #### [facility] Laboratory [address] [address] [address] Jonelle Lechuga INSULINon 06-13-2021 Insulin 4.2 uIU/mL Normal 2.6-24.9 [facility] Comment on above: Performed By: #### I NSULIN ####[facility] [id number] [address] Jonelle Lechuga BNPon 06-12-2021 Natriuretic peptide B (Bld) [Mass/Vol] 731.0 pg/mL Normal <=1,800.0 [facility] Comment on above: Performed By: #### C MP, URIC, LIPID, BNP ####[facility] [id number] [address]Dr. Jonelle Lechuga CBC AUTO DIFFon 06-12-2021 BASO # 0.0 103/ul Normal 0.0-0.1 [facility] Comment on above: Performed By: #### C BC #### [facility] Laboratory [address] [place] [address] Dr. Jonelle Lechuga Basophils/100 WBC (Bld) 0.3 % Normal 0.2-2.0 [facility] Comment on above: Performed By: #### C BC #### [facility] Laboratory [address] [place] [address] Dr. Jonelle Lechuga EO # 0.2 103/ul Normal 0.0-0.7 [facility] Comment on above: Performed By: #### C BC #### [facility] [address] [place] [address] Dr. Jonelle Lechuga Eosinophils/100 WBC (Bld) 3.5 % Normal 0.9-7.0 [facility] Comment on above: Performed By: #### C BC #### [facility] Laboratory [address] [place] [address] Dr. Jonelle Lechuga Erythrocyte distribution width (RBC) [Ratio] 13.9 % Normal 11.0-15.0 [facility] Comment on above: Performed By: #### C BC #### [facility] Laboratory [address] [place] [address] Dr. Jonelle Lechuga Hematocrit (Bld) [Volume fraction] 36.9 % Critically low 42.0-54.0 [facility] Comment on above: Performed By: #### C BC #### [facility] [address] [place] [address] Dr. Jonelle Lechuga Hemoglobin (Bld) [Mass/Vol] 12.9 g/dL Critically low 14.0-18.0 [facility] Comment on above: Performed By: #### C BC #### [facility] [address] [place] [address] Dr. Jonelle Lechuga IG # 0.01 10e3/ul Normal 0.00-0.03 [facility] Comment on above: Performed By: #### C BC #### [facility] [address] [place] [address] Dr. Jonelle Lechuga IG % 0.2 % Normal 0.0-0.5 [facility] Comment on above: Performed By: #### C BC #### [facility] [address] [place] [address] Dr. Jonelle Lechuga LYMPH # 0.7 103/ul Critically low 1.2-3.8 [facility] Comment on above: Performed By: #### C BC #### [facility] [address] [place] [address] Dr. Jonelle Lechuga Lymphocytes/100 WBC (Bld) 11.1 % Critically low 20.5-60.0 [facility] Comment on above: Performed By: #### C BC #### [facility] [address] [place] [address] Dr. Jonelle Lechuga MANUAL DIFF REQ NO Normal [facility] Comment on above: Performed By: #### C BC #### [facility] Laboratory [address] [place] [address] Dr. Jonelle Lechuga MCH (RBC) [Entitic mass] 35.0 pg Critically high 25.9-34.0 [facility] Comment on above: Performed By: #### C BC #### [facility] [address] [place] [address] Dr. Jonelle Lechuga MCHC (RBC) [Mass/Vol] 35.0 g/dL Normal 29.9-35.2 [facility] Comment on above: Performed By: #### C BC #### [facility] [address] [place] [address] Dr. Jonelle Lechuga MCV (RBC) [Entitic vol] 100.0 fL Critically high 80.0-94.0 [facility] Comment on above: Performed By: #### C BC #### [facility] Laboratory [address] [place] [address] Dr. Jonelle Lechuga MONO # 0.5 103/ul Normal 0.3-0.8 [facility] Comment on above: Performed By: #### C BC #### [facility] [address] [place] [address] Dr. Jonelle Lechuga Monocytes/100 WBC (Bld) 7.9 % Normal 1.7-12.0 [facility] Comment on above: Performed By: #### C BC #### [facility] Laboratory [address] [address] [address] Jonelle Lechuga NEUT # 5.1 103/ul Normal 1.4-6.5 [facility] Comment on above: Performed By: #### C BC #### [facility] [address] [address] [address] Jonelle Lechuga Neutrophils/100 WBC (Bld) 77.0 % Critically high 43.0-75.0 [facility] Comment on above: Performed By: #### C BC #### [facility] [address] [address] [address] Jonelle Lechuga Platelet mean volume (Bld) [Entitic vol] 9.8 fL Normal 9.5-13.5 [facility] Comment on above: Performed By: #### C BC #### [facility] [address] [address] [address] Jonelle Lechuga PLT 111 103/ul Critically low 150-450 [facility] Comment on above: Performed By: #### C BC #### [facility] Laboratory [address] [address] [address] Jonelle Lechuga RBC 3.69 106/ul Critically low 4.70-6.10 [facility] Comment on above: Performed By: #### C BC #### [facility] Laboratory [address] [address] [address] Jonelle Lechuga WBC 6.6 103/ul Normal 4.0-11.0 [facility] Comment on above: Performed By: #### C BC #### [facility] Laboratory [address] [address] [address] Jonelle Lechuga GLYCOHEMOGLOBIN A1Con 2020 ADA RECOMMENDATION ADA THERAPEUTIC TARG ET 6.0 - 7.0 ACTION SUGGESTED > 7.0 Normal [facility] Comment on above: Performed By: #### A 1C ####[facility] [id number] [address]Dr. Jonelle Lechuga Glucose [Mass/Vol] 91 mg/dL Normal [facility] Comment on above: Performed By: #### A 1C ####[facility] [id number] [place], [place] [address]BnDr. Jonelle Lechuga HbA1c (Bld) [Mass fraction] 4.8 % Normal <=6.0 [facility] Comment on above: Performed By: #### A 1C ####[facility] [id number] [address]Dr. Jonelle Lechuga LIPID PROFILEon 06-12-2021 CHOL-HDL RATIO NORM SEE BELOW Normal [facility] Comment on above: Result Comment: 3.3 - 4.4 LOW RISK 4.4 - 7.1 AVERAGE RISK 7.1 - 11.0 MODERATE RISK >11.0 HIGH RISK Performed By: #### C MP, URIC, LIPID, BNP #### [facility] [address] [address] [address] Jonelle Lechuga Cholesterol [Mass/Vol] 190 mg/dL Normal <=200 [facility] Comment on above: Performed By: #### C MP, URIC, LIPID, BNP #### [facility] [address] [address] [address] Jonelle Lechuga Cholesterol in HDL [Mass/Vol] 48 mg/dL Normal [facility] Comment on above: Performed By: #### C MP, URIC, LIPID, BNP #### [facility] [address] [address] [address] Jonelle Lechuga Cholesterol in LDL [Mass/Vol] 127.8 mg/dL Normal [facility] Comment on above: Performed By: #### C MP, URIC, LIPID, BNP #### [facility] [address] [address] [address] Jonelle Lechuga Cholesterol.total/Chol esterol in HDL [Mass ratio] 4.0 {ratio} Normal [facility] Comment on above: Performed By: #### C MP, URIC, LIPID, BNP #### [facility] [address] [address] [address] Jonelle Lechuga HDL NORMAL > or = 60 mg/dl - LO W CARDIOVASCULAR RISK <40 mg/dl - HIGH CARDIOVASCULAR RISK Normal [facility] Comment on above: Performed By: #### C MP, URIC, LIPID, BNP #### [facility] [address] [place] [address] Dr. Jonelle Lechuga LDL CALC NORMAL SEE BELOW Normal [facility] Comment on above: Result Comment: <100 mg/dl OPTIMAL 100 - 129 mg/dl NEAR OR ABOVE OPTIMAL 130 - 159 mg/dl BORDERLINE HIGH 160 - 189 mg/dl HIGH >190 mg/dl VERY HIGH Performed By: #### C MP, URIC, LIPID, BNP #### [facility] [address] [address] [address] Jonelle Lechuga Triglyceride [Mass/Vol] 71 mg/dL Normal <=150 [facility] Comment on above: Performed By: #### C MP, URIC, LIPID, BNP #### [facility] [address] [place] [address] Dr. Jonelle Lechuga VLDL CALC 14.2 mg/dL Normal [facility] Comment on above: Performed By: #### C MP, URIC, LIPID, BNP #### [facility] [address] [place] [address] Dr. Jonelle Lechuga PROF 14(COMP METB)on 021 Albumin [Mass/Vol] 3.4 g/dL Critically low 3.5-5.0 [facility] Comment on above: Performed By: #### C MP, URIC, LIPID, BNP #### [facility] [address] [place] [address] Dr. Jonelle Lechuga Albumin/Globulin [Mass ratio] 1.0 {ratio} Normal [facility] Comment on above: Performed By: #### C MP, URIC, LIPID, BNP #### [facility] [address] [place] [address] Dr. Jonelle Lechuga ALP [Catalytic activity/Vol] 77 U/L Normal 38-126 [facility] Comment on above: Performed By: #### C MP, URIC, LIPID, BNP #### [facility] [address] [place] [address] Dr. Jonelle Lechuga ALT [Catalytic activity/Vol] 16 U/L Critically low 21-72 [facility] Comment on above: Performed By: #### C MP, URIC, LIPID, BNP #### [facility] [address] [place] [address] Dr. Jonelle Lechuga Anion gap [Moles/Vol] 10.2 mmol/L Normal Th e [facility] Comment on above: Performed By: #### C MP, URIC, LIPID, BNP #### [facility] [address] [place] [address] Dr. Jonelle Lechuga AST [Catalytic activity/Vol] 14 U/L Critically low 17-59 [facility] Comment on above: Performed By: #### C MP, URIC, LIPID, BNP #### [facility] [address] [place] [address] Dr. Jonelle Lechuga Bilirubin [Mass/Vol] 1.3 mg/dL Normal 0.2-1.3 [facility] Comment on above: Performed By: #### C MP, URIC, LIPID, BNP #### [facility] [address] [place] [address] Dr. Jonelle Lechuga Calcium [Mass/Vol] 9.1 mg/dL Normal 8.4-10.2 [facility] Comment on above: Performed By: #### C MP, URIC, LIPID, BNP #### [facility] [address] [place] [address] Dr. Jonelle Lechuga Chloride [Moles/Vol] 100 mmol/L Normal 98-107 [facility] Comment on above: Performed By: #### C MP, URIC, LIPID, BNP #### [facility] [address] [place] [address] Dr. Jonelle Lechuga CO2 [Moles/Vol] 31.8 mmol/L Critically high 22.0-30.0 [facility] Comment on above: Performed By: #### C MP, URIC, LIPID, BNP #### [facility] [address] [place] [address] Dr. Jonelle Lechuga Creatinine [Mass/Vol] 1.33 mg/dL Critically high 0.66-1.25 [facility] Comment on above: Performed By: #### C MP, URIC, LIPID, BNP #### [facility] [address] [place] [address] Dr. Jonelle Lechuga EGFR-AF CYPRIOT >60 Normal >=60 [facility] Comment on above: Performed By: #### C MP, URIC, LIPID, BNP #### [facility] [address] [address] [address] Jonelle Lechuga EGFR-NON AF CYPRIOT 52 mL/min/1.73m2 Critically low >=60 [facility] Comment on above: Performed By: #### C MP, URIC, LIPID, BNP #### [facility] [address] [place] [address] Dr. Jonelle Lechuga Globulin (S) [Mass/Vol] 3.5 g/dL Normal [facility] Comment on above: Performed By: #### C MP, URIC, LIPID, BNP #### [facility] [address] [place] [address] Dr. Jonelle Lechuga Glucose [Mass/Vol] 114 mg/dL Critically high 74-106 [facility] Comment on above: Performed By: #### C MP, URIC, LIPID, BNP #### [facility] [address] [place] [address] Dr. Jonelle Lechuga Potassium [Moles/Vol] 4.0 mmol/L Normal 3.4-5.0 [facility] Comment on above: Performed By: #### C MP, URIC, LIPID, BNP #### [facility] [address] [place] [address] Dr. Jonelle Lechuga Protein [Mass/Vol] 6.9 g/dL Normal 6.1-8.2 [facility] Comment on above: Performed By: #### C MP, URIC, LIPID, BNP #### [facility] [address] [place] [address] Dr. Jonelle Lechuga Sodium [Moles/Vol] 138 mmol/L Normal 137-145 [facility] Comment on above: Performed By: #### C MP, URIC, LIPID, BNP #### [facility] [address] [place] [address] Dr. Jonelle Lechuga Urea nitrogen [Mass/Vol] 23.0 mg/dL Critically high 9.0-20.0 [facility] Comment on above: Performed By: #### C MP, URIC, LIPID, BNP #### [facility] [address] [address] [address] Jonelle Lechuga Urea nitrogen/Creatinine [Mass ratio] 17.3 mg/mg Normal [facility] Comment on above: Performed By: #### C MP, URIC, LIPID, BNP #### [facility] [address] [place] [address] Dr. Jonelle Lechuga URIC ACID SERUMon 06-12-2021 Urate [Mass/Vol] 3.8 mg/dL Normal 3.5-8.5 [facility] Comment on above: Performed By: #### C MP, URIC, LIPID, BNP #### [facility] [address] [place] [address] Dr. Jonelle Lechuga VITAMIN D 25 OHon 06-12-2021 VIT D 25-OH 30.8 ng/mL Normal [facility] Comment on above: Performed By: #### V GARRET, PSASC #### [facility] [address] [place] [address] Dr. Jonelle Lechuga VIT D RANGES SEE BELOW Normal [facility] Comment on above: Result Comment: <20 ng/mL Vit D deficient 20 - <30 ng/mL Vit D insufficient 30 - 100 ng/mL Vit D sufficient >100 ng/mL Potential Toxicity Performed By: #### V GARRET, PSASC #### [facility] [address] [place] [address] Dr. Jonelle Lechuga Tobacco Screening.on 021 Fall risk assessment a) No falls within the last year [facility] 250 DO Work Phone: Tobacco use status CPHS b) No [facility] 250 DO Work Phone: Vital Signs Date Time Vital Sign Value Performing Clinician Facility 04-27-2024 14:31-0400 Body height 177.8 cm Jammie Velasquez MD Work Phone: [facility] 04-27-2024 14:31-0400 Body mass index (BMI) [Ratio] 42.21 kg/m2 Jammie Velasquez MD Work Phone: [facility] 04-27-2024 14:31-0400 Body weight 133.45 kg Jammie Velasquez MD Work Phone: [facility] 04-27-2024 14:31-0400 Diastolic blood pressure 60 mm[Hg] Jammie Velasquez MD Work Phone: [facility] 04-27-2024 14:31-0400 Heart rate 60 /min Jammie Velasquez MD Work Phone: [facility] 04-27-2024 14:31-0400 Systolic blood pressure 110 mm[Hg] Jammie Velasquez MD Work Phone: [facility] 06-23-2023 13:40-0500 Blood Pressure Location John BARTLETT [facility] [place] 06-23-2023 13:40-0500 Diastolic blood pressure 88 mm[Hg] John NILL [facility] [place] 06-23-2023 13:40-0500 Heart rate 72 /min John NILL [facility] [place] 06-23-2023 13:40-0500 Respiratory rate 16 /min John NILL [facility] [place] 06-23-2023 13:40-0500 Systolic blood pressure 126 mm[Hg] John NILL [facility] [place] 05-27-2023 05:00-0500 Body temperature 97.4 [degF] MD Real Dodd Work Phone: [facility] 05-27-2023 05:00-0500 Diastolic blood pressure 80 mm[Hg] MD Real Dodd Work Phone: [facility] 05-27-2023 05:00-0500 Heart rate 77 /min MD Real Dodd Work Phone: [facility] 05-27-2023 05:00-0500 Respiratory rate 20 /min MD Real Dodd Work Phone: [facility] 05-27-2023 05:00-0500 SaO2% (BldA) [Mass fraction] 95 % MD Real Dodd Work Phone: [facility] 05-27-2023 05:00-0500 Systolic blood pressure 129 mm[Hg] MD Real Dodd Work Phone: [facility] 05-26-2023 12:09-0500 Body height 177.8 cm MD Real Dodd Work Phone: [facility] 05-24-2023 06:00-0500 Body weight 131.3 kg MD Real Dodd Work Phone: [facility] 05-18-2023 11:26-0500 Body temperature 98 [degF] MD Real Dodd Work Phone: [facility] 05-18-2023 11:26-0500 Diastolic blood pressure 69 mm[Hg] MD Real Dodd Work Phone: [facility] 05-18-2023 11:26-0500 Heart rate 87 /min MD Real Dodd Work Phone: [facility] 05-18-2023 11:26-0500 Respiratory rate 12 /min MD Real Dodd Work Phone: [facility] 05-18-2023 11:26-0500 SaO2% (BldA) [Mass fraction] 96 % MD Real Dodd Work Phone: [facility] 05-18-2023 11:26-0500 Systolic blood pressure 116 mm[Hg] MD Real Dodd Work Phone: [facility] 05-18-2023 06:45-0500 Body weight 139.8 kg MD Real Dodd Work Phone: [facility] 05-13-2023 10:45-0500 Body height 175.26 cm MD Real Dodd Work Phone: [facility] 05-13-2023 00:00-0500 Inhaled oxygen flow rate 1 L/min Real Khaielham Work Phone: [facility] 05-12-2023 09:07-0500 Body mass index (BMI) [Ratio] 44.9 kg/m2 MD Noble Khaielham Work Phone: [facility] 02-03-2023 15:51-0400 Body height 177.8 cm Real Soliz Hoy Work Phone: [facility] [address] DO Work Phone: 02-03-2023 15:51-0400 Body mass index (BMI) [Ratio] 43.22 kg/m2 Real Martínez Hoy Work Phone: [facility] [address] DO Work Phone: 02-03-2023 15:51-0400 Body surface area Derived from formula 2.48 m2 Real Soliz Hoy Work Phone: [facility] [address] DO Work Phone: 02-03-2023 15:51-0400 Body weight 136.62 kg Real Soliz Hoy Work Phone: [facility] [address] DO Work Phone: 02-03-2023 15:51-0400 Diastolic blood pressure 74 mm[Hg] Real Soliz Hoy Work Phone: [facility] [address] DO Work Phone: 02-03-2023 15:51-0400 Heart rate 78 /min Real Martínez Hoy Work Phone: [facility] [facility] DO Work Phone: 02-03-2023 15:51-0400 Systolic blood pressure 132 mm[Hg] Real Martínez Hoy Work Phone: [facility] [facility] DO Work Phone: 09-08-2022 10:00-0500 55 1 Real M Hoy Work Phone: [facility] Work Phone: Comment on above: [id number] 08-05-2022 13:18-0500 Body height 177.8 cm Real M Hoy Work Phone: [facility] 250 DO Work Phone: 08-05-2022 13:18-0500 Body mass index (BMI) [Ratio] 42.62 kg/m2 Real M Hoy Work Phone: [facility] 250 DO Work Phone: 08-05-2022 13:18-0500 Body surface area Derived from formula 2.47 m2 Real M Hoy Work Phone: [facility] 250 DO Work Phone: 08-05-2022 13:18-0500 Body weight 134.72 kg Real M Hoy Work Phone: [facility] 250 DO Work Phone: 08-05-2022 13:18-0500 Diastolic blood pressure 78 mm[Hg] Real M Hoy Work Phone: [facility] 250 DO Work Phone: 08-05-2022 13:18-0500 Heart rate 81 /min Real M Hoy Work Phone: [facility] 250 DO Work Phone: 08-05-2022 13:18-0500 Systolic blood pressure 132 mm[Hg] Real M Hoy Work Phone: [facility] 250 DO Work Phone: 04-28-2022 05:00-0400 Body temperature 98.3 [degF] Real Hoy Work Phone: [facility] 04-28-2022 05:00-0400 Diastolic blood pressure 71 mm[Hg] MD Real Dodd Work Phone: [facility] 04-28-2022 05:00-0400 Heart rate 97 /min MD Real Dodd Work Phone: [facility] 04-28-2022 05:00-0400 Respiratory rate 16 /min MD Real Dodd Work Phone: [facility] 04-28-2022 05:00-0400 SaO2% (BldA) [Mass fraction] 96 % MD Real oDdd Work Phone: [facility] 04-28-2022 05:00-0400 Systolic blood pressure 130 mm[Hg] MD Real oDdd Work Phone: [facility] 04-27-2022 04:18-0400 Body weight 130.5 kg MD Real Dodd Work Phone: [facility] 04-23-2022 07:55-0400 Body height 177.8 cm MD Real Dodd Work Phone: [facility] 04-15-2022 16:00-0400 Inhaled oxygen flow rate 4 L/min MD Real Dodd Work Phone: [facility] 04-15-2022 15:39-0400 Body temperature 97.7 [degF] MD Real Dodd Work Phone: [facility] 04-15-2022 15:39-0400 Diastolic blood pressure 59 mm[Hg] MD Real Dodd Work Phone: [facility] 04-15-2022 15:39-0400 Heart rate 66 /min MD Real Dodd Work Phone: [facility] 04-15-2022 15:39-0400 Respiratory rate 16 /min MD Real Dodd Work Phone: [facility] 04-15-2022 15:39-0400 SaO2% (BldA) [Mass fraction] 97 % MD Real Hoy Work Phone: [facility] 04-15-2022 15:39-0400 Systolic blood pressure 109 mm[Hg] MD Real Dodd Work Phone: [facility] 04-15-2022 11:30-0400 Body height 172.72 cm MD Real Dodd Work Phone: [facility] 04-15-2022 06:00-0400 Body weight 137.6 kg MD Real Dodd Work Phone: [facility] 04-14-2022 11:31-0400 Body mass index (BMI) [Ratio] 45.6 kg/m2 MD Real Dodd Work Phone: [facility] 01-31-2022 10:15-0400 Body height 177.8 cm Andrea Tie Siding II Other [employer] Other 01-31-2022 10:15-0400 Body mass index (BMI) [Ratio] 42.47 kg/m2 Andrea Tie Siding II Other [employer] Other 01-31-2022 10:15-0400 Body weight 134.27 kg Andrea Jeferson II Other [employer] Other 01-23-2022 13:10-0400 Body height 177.8 cm Real Martínez Hoy Work Phone: [facility] 250 DO Work Phone: 01-23-2022 13:10-0400 Body mass index (BMI) [Ratio] 42.76 kg/m2 Real M Hoy Work Phone: [facility] 250 DO Work Phone: 01-23-2022 13:10-0400 Body surface area Derived from formula 2.47 m2 Real M Hoy Work Phone: [facility] 250 DO Work Phone: 01-23-2022 13:10-0400 Body weight 135.17 kg Real M Hoy Work Phone: [facility] 250 DO Work Phone: 01-23-2022 13:10-0400 Diastolic blood pressure 68 mm[Hg] Real M Hoy Work Phone: [facility] 250 DO Work Phone: 01-23-2022 13:10-0400 Heart rate 72 /min Real M Hoy Work Phone: [facility] 250 DO Work Phone: 01-23-2022 13:10-0400 Systolic blood pressure 114 mm[Hg] Real M Hoy Work Phone: [facility] 250 DO Work Phone: 11-29-2021 11:30-0400 Body height 177.8 cm [employer] Other [facility] [employer] Other 11-29-2021 11:30-0400 Body mass index (BMI) [Ratio] 41.61 kg/m2 [employer] Other [facility] [employer] Other 11-29-2021 11:30-0400 Body weight 131.54 kg [employer] Other [facility] [employer] Other 09-17-2021 13:08-0400 Body height 177.8 cm Real M Hoy Work Phone: [facility] 250 DO Work Phone: 09-17-2021 13:08-0400 Body mass index (BMI) [Ratio] 43.05 kg/m2 Real M Hoy Work Phone: [facility] 250 DO Work Phone: 09-17-2021 13:08-0400 Body surface area Derived from formula 2.48 m2 Real M Hoy Work Phone: [facility] 250 DO Work Phone: 09-17-2021 13:08-0400 Body weight 136.08 kg Real M Hoy Work Phone: [facility] 250 DO Work Phone: 09-17-2021 13:08-0400 Diastolic blood pressure 84 mm[Hg] Real M Hoy Work Phone: [facility] 250 DO Work Phone: 09-17-2021 13:08-0400 Heart rate 66 /min Real M Hoy Work Phone: [facility] 250 DO Work Phone: 09-17-2021 13:08-0400 Systolic blood pressure 130 mm[Hg] Real M Hoy Work Phone: [facility] 250 DO Work Phone: 05-15-2021 11:06-0500 Body height 177.8 cm Real M Hoy Work Phone: [facility] 250 DO Work Phone: 05-15-2021 11:06-0500 Body mass index (BMI) [Ratio] 43.05 kg/m2 Real M Hoy Work Phone: [facility] 250 DO Work Phone: 05-15-2021 11:06-0500 Body surface area Derived from formula 2.48 m2 Real M Hoy Work Phone: [facility] 250 DO Work Phone: 05-15-2021 11:06-0500 Body weight 136.08 kg Real M Hoy Work Phone: [facility] 250 DO Work Phone: 05-15-2021 11:06-0500 Diastolic blood pressure 60 mm[Hg] Real Dodd Work Phone: [facility] 250 DO Work Phone: 05-15-2021 11:06-0500 Heart rate 50 /min Real Soliz Hoy Work Phone: [facility] 250 DO Work Phone: 05-15-2021 11:06-0500 Systolic blood pressure 127 mm[Hg] Real Soliz Hoy Work Phone: [facility] 250 DO Work Phone: Encounters Encounter Date Encounter Type Care Provider Facility Start: 04-27-2024 End: 04-27-2024 Office outpatient visit 25 minutes Jammie Velasquez MD Work Phone: [facility] Comment on above: Permanent atrial fib rillation (Multi) (Primary Dx); Essential hypertension; Sinus bradycardia; Pulmonary hypertension (Multi); LVH (left ventricular hypertrophy); Anticoagulated; Obstructive sleep apnea syndrome; Former smoker; BMI 40.0-44.9, adult (Multi) Start: 04-27-2024 End: 04-27-2024 ambulatory [facility] Start: 08-18-2023 End: 08-18-2023 ambulatory [facility] Start: 07-22-2023 ambulatory John R KELSEYL Facility : [facility] Start: 07-22-2023 End: 07-22-2023 Patient encounter procedure John R NILL General [facility] Nill/Said [facility] Start: 07-14-2023 End: 07-15-2023 ambulatory John R NILL Facility: [place] Start: 07-14-2023 End: 07-14-2023 Patient encounter procedure John R NILL General Surgery Nill/Said [place] Start: 07-07-2023 End: 07-08-2023 ambulatory John R NILL Facility:[facility] Start: 07-03-2023 End: 07-03-2023 ambulatory Andrea Govea II Facility:[facility] Start: 07-03-2023 End: 07-03-2023 ambulatory MD Real Dodd Work Phone: [facility] Work Phone: Start: 07-03-2023 End: 07-03-2023 Discharged Recurring MD Real Dodd Work Phone: [facility] [place] Start: 06-23-2023 End: 06-24-2023 ambulatory John R NILL Facility: [facility] Start: 06-23-2023 End: 06-23-2023 Patient encounter procedure John Mendoza KELSEYL General Surgery Nill/Said [place] Start: 06-17-2023 End: 06-17-2023 ambulatory JANES LEON Not Available Start: 06-08-2023 ambulatory John NILL Facility:[facility] Start: 05-27-2023 End: 05-27-2023 ambulatory Andrea Govea II Other [employer] Other Start: 05-27-2023 Postop follow up vis it related to original px Andrea Govea II [facility] Start: 05-18-2023 End: 05-27-2023 Evaluation and management of inpatient Basilia Adams Facility:[facility] Start: 05-18-2023 End: 05-27-2023 Evaluation and management of inpatient MD Real Dodd Work Phone: [facility] Work Phone: Start: 05-12-2023 End: 05-18-2023 ambulatory Andrea Govea II Facility:[facility] Start: 05-12-2023 End: 05-18-2023 Admission to same day surgery center MD Real Dodd Work Phone: [facility] [place] Start: 04-29-2023 End: 04-29-2023 ambulatory Andrea Govea II Other [facility] [employer] Other Start: 04-29-2023 Patient encounter procedure Andrea Govea II [facility] Start: 04-28-2023 End: 04-28-2023 ambulatory Andrea Govea II Facility:[facility] Start: 04-28-2023 End: 04-28-2023 ambulatory MD Real Dodd Work Phone: [facility] Work Phone: Start: 04-28-2023 End: 04-28-2023 Patient encounter procedure MD Real Dodd Work Phone: [facility] Work Phone: Start: 04-01-2023 End: 04-01-2023 ambulatory Andrea Govea II Facility:[facility] Start: 04-01-2023 End: 04-01-2023 ambulatory MD Real Dodd Work Phone: [facility] Work Phone: Start: 04-01-2023 End: 04-01-2023 Patient encounter procedure MD Real Dodd Work Phone: [facility] Start: 04-01-2023 End: 04-01-2023 ambulatory Andrea Govea II Facility:[facility] Start: 04-01-2023 End: 04-01-2023 ambulatory MD Real Dodd Work Phone: [facility] Work Phone: Start: 04-01-2023 End: 04-01-2023 Patient encounter procedure MD Real Dodd Work Phone: [facility] [place] [facility] Start: 02-03-2023 Office outpatient vi sit 25 minutes Real M Hoy Work Phone: [facility] 320 DO Work Phone: Start: 02-03-[address] Real Dodd Facility: Start: 01-22-2023 Rx Renewal Real Martínez Hoy Work Phone: [facility] 250 DO Work Phone: Start: 09-09-[address] Real Dodd Facility:[id number] Start: 09-08-2022 Patient encounter procedure Real Martínez Hoy Work Phone: [facility] Work Phone: Start: 09-08-[address] Jammie Velasquez Facility:[id number] Start: 08-05-2022 Office outpatient vi sit 25 minutes Real M Hoy Work Phone: [facility] 250 DO Work Phone: Start: 08-05-[address] Jammie Velasquez Facility: Start: 06-23-2022 Rx Renewal Real Martínez Hoy Work Phone: [facility] 250 DO Work Phone: Start: 05-26-2022 Rx Renewal Real M Hoy Work Phone: [facility] 250 DO Work Phone: Start: 05-06-2022 (Post-Op) Post-Op Andrea Jeferson II [facility] [place] [facility] Start: 05-06-2022 End: 05-06-2022 ambulatory Andrea Govea II Other [facility] [employer] Other Start: 04-28-2022 End: 04-28-2022 ambulatory Andrea [employer] S[employer] II Other [employer] Other Start: 04-28-2022 Telephone encounter Andrea Govea II [facility] [place] [facility] Start: 04-15-2022 End: 04-28-2022 Evaluation and management of inpatient MD Real Dodd Work Phone: [facility] Start: 04-14-2022 End: 04-15-2022 Admission to same day surgery center MD Real Dodd Work Phone: [facility] [place] Start: 04-14-2022 End: 04-15-2022 ambulatory MD Real Dodd Work Phone: [facility] Work Phone: Start: 04-10-2022 End: 04-10-2022 ambulatory MD Real Dodd Work Phone: [facility] Work Phone: Start: 04-10-2022 End: 04-10-2022 Patient encounter procedure MD Real Dodd Work Phone: [facility]-Pre-Surgical Testing Start: 04-08-2022 End: 04-09-[address] REAL DODD Facility: Start: 04-04-2022 (Prolonged) Prolonge d Services Andrea Govea II [facility] Start: 04-04-2022 End: 04-04-2022 ambulatory Andrea Govea II Other [employer] Other Start: 03-31-2022 End: 03-31-2022 Patient encounter procedure MD Real Dodd Work Phone: [facility] Start: 03-31-2022 Registered Recurring MD Kinjal Dodd Work Phone: [facility] [place] Start: 02-07-2022 End: 02-07-2022 ambulatory Andrea Govea II Other [employer] Other Start: 02-07-2022 Telephone encounter Andrea Govea II [facility] Start: 02-04-2022 End: 08-02-2022 Patient encounter procedure MD Real Dodd Work Phone: [facility] Start: 01-31-2022 End: 01-31-2022 ambulatory Andrea Jeferson II Other [employer] Other Start: 01-31-2022 Office outpatient vi sit 40 minutes Andrea Tie Siding II [facility] Start: 01-31-2022 End: 01-31-2022 Discharged Recurring MD Real Dodd Work Phone: [facility] [address] Start: 01-23-2022 Office outpatient vi sit 25 minutes Real M Hoy Work Phone: [facility] 250 DO Work Phone: Start: 11-29-2021 End: 11-29-2021 ambulatory Andrea Jeferson II Other Tem[employer] Other Start: 11-29-2021 Office outpatient ne w 45 minutes Andrea Jeferson II [facility] Start: 11-29-2021 Rx Renewal Real M Ju Work Phone: [facility] 250 DO Work Phone: Start: 09-17-2021 Office outpatient vi sit 25 minutes Real M Hoy Work Phone: [facility] 250 DO Work Phone: Start: 07-22-2021 End: 07-23-[address] REAL DODD Facility:H1 Start: 07-12-2021 End: 07-13-[address] REAL DODD Facility:H1 Start: 07-01-2021 End: 07-01-[address] REAL DODD Facility:H1 Start: 06-12-2021 End: 06-13-[address] REAL DODD Facility:H1 Start: 05-15-2021 Office outpatient vi sit 10 minutes Real M Hoy Work Phone: [facility] 250 DO Work Phone: Procedures Date Procedure [...] FASTING. JKW Result Comment: PERF ORMED BY: [address] [place] [address] PATHOLOGIST AUTOMATION TEST ENGINEER ISMAEL HERNANDEZ M.D. Start: 04-01-2023 Methicillin resistan [...] Performed By: #### V ITAD, PSASC #### [facility] [address] [place] [address] Dr. Jonelle Lechuga Arthroplasty of knee Real Dodd Work Phone: Cardioversion Real Dodd Work Phone: Colonoscopy Real Dodd Work Phone: Comment on above: [id number]; Excision of colon Real Dodd Work Phone: [...] procedure 01/31/2025 1:20 PM EDT Office Visit [facility] [address] [facility] [place] [address] [place] [phone] Jammie Velasquez MD [address] [facility] 2, [address] [place] [address] [facility] Start: 04-27-2024 End: 04-27-2025 Basic metabolic 2000 panel - Serum or Plasma Basic Metabolic Panel Lab Routine Permanent atrial fibrillation (Multi) Essential hypertension Expected: 04/27/2024 (Approximate), Expires: 04/27/2025 [facility] Work Phone: Comment on above: Expected: 04/27/2024 (Approximate), Expires: 04/27/2025 Start: 04-27-2024 End: 04-27-2025 CBC panel - Blood by Automated count CBC Lab Routine Permanent atrial fibrillation (Multi) Essential hypertension Expected: 04/27/2024 (Approximate), Expires: 04/27/2025 [facility] Work Phone: Comment on above: Expected: 04/27/2024 (Approximate), Expires: 04/27/2025 Start: 04-27-2024 End: 04-27-2025 Lipid 1996 panel - Serum or Plasma Lipid Panel Lab Routine Permanent atrial fibrillation (Multi) Essential hypertension Expected: 04/27/2024 (Approximate), Expires: 04/27/[address] [facility] Service Area Work Phone: Comment on above: Expected: 04/27/2024 (Approximate), Expires: 04/27/2025 Start: 08-18-2023 FUV, Provider: Jammie Velasquez, Status: Pen, Time: 2:30 PM FUV, Provider: Jammie Velasquez, Status: Pen, Time: 2:30 PM -[facility] 320 DO Work Phone: Start: 05-27-2023 [facility] Start: 05-18-2023 Hospital admission [facility] Start: 05-18-2023 Referral to clinical review manager [facility] Start: 05-18-2023 [facility] Start: 05-12-2023 Referral to clinical review manager [facility] Start: 05-12-2023 Referral to rehabilitation physician [facility] Start: 05-12-2023 Hospital admission [facility] Start: 04-28-2023 [facility] Start: 04-01-2023 MRSA Culture MRSA Culture [facility] Start: 02-03-2023 FUV, Provider: Jammie Velasquez, Status: Pen, Time: 3:30 PM FUV, Provider: Jammie Velasquez, Status: Pen, Time: 3:30 PM -[facility] 250 DO Work Phone: Start: 09-09-2022 REST ONLY, Provider: DANDY HARTMAN NUCLEAR 01,[id number], Status: Pen, Time: 10:00 AM REST ONLY, Provider: DANDY JACOMEI NUCLEAR 01,[id number], Status: Pen, Time: 10:00 AM -[facility] 250 DO Work Phone: Start: 09-08-2022 STRESSNUC2, Provider : DANDY JACOMEI NUCLEAR 01,[id number], Status: Pen, Time: 10:00 AM STRESSNUC2, Provider: DANDY HHVI NUCLEAR 01,[id number], Status: Pen, Time: 10:00 AM [facility] 250 DO Work Phone: Start: 08-05-2022 FUV, Provider: Jammie Velasquez, Status: Pen, Time: 1:00 PM FUV, Provider: Jammie Velasquez, Status: Pen, Time: 1:00 PM [facility] 250 DO Work Phone: Start: 04-28-2022 [facility] Start: 04-15-2022 Hospital admission [facility] Start: 04-15-2022 Referral to clinical review manager [facility] Start: 04-15-2022 [facility] Start: 04-14-2022 Referral to clinical review manager [facility] Start: 04-14-2022 Hospital admission [facility] Start: 01-09-2022 FUV, Provider: Jammie Velasquez, Status: Pen, Time: 1:50 PM FUV, Provider: Jammie Velasquez, Status: Pen, Time: 1:50 PM [facility] 250 DO Work Phone: Start: 01-09-2022 FUV, Provider: Jammie Velasquez, Status: Pen, Time: 9:20 AM FUV, Provider: Jammie Velasquez, Status: Pen, Time: 9:20 AM [facility] 250 DO Work Phone: Start: 09-17-2021 FUV, Provider: Jammie Velasquez, Status: Pen, Time: 1:10 PM FUV, Provider: Jammie Velasquez, Status: Pen, Time: 1:10 PM [facility] 250 DO Work Phone: Start: 1966 DTaP/Tdap/Td Vaccine s (1 - Tdap) DTaP/Tdap/Td Vaccines (1 - Tdap) [facility] Start: 1962 Diabetes mellitus screening Diabetes Screening [facility] Start: 1962 Hepatitis C screening Hepatitis C Sc reening [facility] Start: 1944 Annual wellness visit Medicare Initial Physical (IPPE) [facility] Start: 1944 Lipid panel Lipid Panel [facility] Start: 1944 Medicare Annual Well ness Visit Medicare Annual Wellness Visit (AWV) [facility] Start: 1944 Screening for osteoporosis Bone Density Scan [facility] Cotinine [Mass/volum e] in Serum or Plasma [facility] Glucose measurement estimated from glycated hemoglobin [facility] Methicillin resistan t Staphylococcus aureus [Presence] in Unspecified specimen by Organism specific culture [facility] Nicotine [Mass/volum e] in Serum or Plasma [facility] Patient Education [facility] Work Phone: Patient referral [facility] Work Phone: [facility] Immunizations Immunization Date Immunization Notes Care Provider Kristen padron 04-09-2023 influenza virus vaccine, unspecified formulation John BARTLETT [facility] [place] 04-10-2022 Fluzone High-Dose Quadrivalent 0.7 ML Intramuscular Suspension Prefilled Syringe Real Dodd Work Phone: [facility] 250 DO Work Phone: 04-10-2022 influenza, high dose seasonal, preservative-free Jammie Velasquez MD Work Phone: [facility] Work Phone: 04-10-2022 Pfizer COVID-19 Vac Bivalent 30 MCG/0.3ML Intramuscular Suspension Real Dodd Work Phone: [facility] [place] 03-25-2022 influenza, seasonal, injectable Real Dodd [facility] Work Phone: Comment on above: Series: 01-10-2022 Comirnaty 30 MCG/0.3 ML Intramuscular Suspension Real Dodd [facility] Work Phone: 01-10-2022 COVID-19 mRNAMk (Pfizer) Real Dodd Work Phone: [facility] 01-10-2022 SARS-CoV-2 mRNA (kerqioaxymv-tfnm-uaeop se) vaccine John BARTLETT [facility] [place] 01-10-2022 SARS-CoV-2, Unspecified Jeffrey Velasquez MD Work Phone: [facility] Work Phone: 03-30-2021 Fluzone High-Dose Quadrivalent 0.7 ML Intramuscular Suspension Prefilled Syringe Real Dodd Work Phone: [facility] 250 DO Work Phone: 03-30-2021 influenza, high dose seasonal, preservative-free Jammie Velasquez MD Work Phone: [facility] Work Phone: 03-30-2021 Pfizer-BioNTech COVID-19 Vacc 30 MCG/0.3ML Intramuscular Suspension Real Dodd Work Phone: [facility] Comment on above: Result Comment: 2022: [id number] 09-22-2020 zoster vaccine recombinant Real Dodd [facility] Work Phone: 08-24-2020 COVID-19 Vaccine Pfi zer - Documentation Purposes Only Andrea Govea II Other [facility] Comment on above: Result Comment: 2022: [id number] 08-17-2020 Pfizer-BioNTech COVID-19 Vacc 30 MCG/0.3ML Intramuscular Suspension Real Dodd Work Phone: [facility] 08-03-2020 COVID-19 Mk Hernandez (Pfizer) Real Ju Work Phone: [facility] Comment on above: Result Comment: 2022: [id number] 07-27-2020 Pfizer-BioNTech COVID-19 Vacc 30 MCG/0.3ML Intramuscular Suspension Real Dodd Work Phone: [facility] 06-16-2020 zoster vaccine recombinant Real Dodd [facility]: [facility] Work Phone: 05-17-2020 zoster vaccine recombinant Real Dodd Work Phone: [facility] 03-12-2020 Fluzone High-Dose Quadrivalent 0.7 ML Intramuscular Suspension Prefilled Syringe Real M Ju [facility] DO Work Phone: 03-12-2020 influenza, high dose seasonal, preservative-free Jammie Velasquez MD Work Phone: [facility] Work Phone: 03-20-2019 influenza, high dose seasonal, preservative-free Real M Hoy Work Phone: [facility] Work Phone: 02-25-2018 influenza, high dose seasonal, preservative-free Real M Hoy Work Phone: [facility] 250 DO Work Phone: 02-25-2018 pneumococcal polysaccharide vaccine, 23 valent Real M Ju Work Phone: [facility] 04-17-2017 influenza, high dose seasonal, preservative-free Real Dodd Work Phone: [facility] [employer] 250 DO Work Phone: 07-06-2016 pneumococcal conjuga te vaccine, 13 valent Real Dodd Work Phone: [facility] Work Phone: 04-05-2015 influenza virus vaccine, unspecified formulation Real Dodd Work Phone: [facility] DO Work Phone: 03-26-2013 zoster vaccine, live Real Dodd Work Phone: [facility] Payers Date Payer Category Payer Medicare (Managed Care) [employer] [facility] [id number] 2023 Medicare [id number] 2023 Self-pay [id number] 1959 Medicare [id number] [id number] 1959 Unknown [id number] 2.16.840.1.808450.19 1944 Unknown [id number] 2.16.840.1.814020.3.579.2 .593 1944 Unknown [id number] 2.16.840.1.706875.3.579.2 .593 1944 Unknown [id number] 2.16.840.1.631485.3.579.2 .593 1944 Unknown [id number] 2.16.840.1.049878.3.579.2 .593 1944 Unknown [id number] 2.16.840.1.803421.3.579.2 .593 1944 Unknown [id number] 2.16.840.1.048915.3.579.2 .1068 1944 Unknown [id number] 2.16.840.1.290705.3.579.2 .1068 1944 Unknown [id number] 2.16.840.1.569543.3.579.2 .1068 1944 Unknown [id number] 2.16.840.1.997391.3.579.2 .356 1944 Unknown [id number] 2.16.840.1.932860.3.579.2 .356 1944 Unknown [id number] 2.16.840.1.660829.3.579.2 .1259 1944 Unknown [id number] 2.16.840.1.318989.3.579.2 .727 1944 Unknown [id number] 2.16.840.1.201353.3.579.2 .727 1944 Unknown [id number] 2.16.840.1.518260.3.579.2 .727 1944 Unknown [id number] 2.16.840.1.444845.3.579.2 .727 1944 Unknown [id number] 2.16.840.1.929940.3.579.2 .1244 1944 Unknown [id number] 2.16.840.1.187552.3.579.2 .1244 Unknown Unknown [id number] 2.16.840.1.643589.3.579.2 .531 Unknown [id number] 2.16.840.1.816953.3.579.2 .531 Unknown [id number] 2.16.840.1.497973.3.579.2 .531 Unknown [id number] 2.16.840.1.735548.3.579.2 .531 Unknown [id number] 2.16.840.1.681494.3.579.2 .531 Unknown [id number] 2.16.840.1.316091.3.579.2 .531 Social History Date Type Detail Facility Start: 08-18-2023 End: 04-27-2024 Consumes alcohol occasionally Consumes alcohol occasionally [facility] 250 DO Work Phone: Comment on above: 1 cup of coffee, sod a occasionally; quit 2000, 1/2 PPD; Start: 07-06-1979 End: 07-06-2001 Sex Assigned At [facility] Start: 1945 Sex Assigned At Male [facility] Start: 03-31-2022 End: 04-27-2024 Tobacco smoking status [facility] Ex-smoker (finding) [facility] Start: 05-19-2023 Tobacco smoking stat us [facility] Never smoked tobacco (finding) [facility] Tobacco smoking status Never [facility] [place] End: 07-06-1999 History of tobacco use Current smoker [facility] Work Phone: End: 07-06-1999 History of tobacco use Cigarette Smoker [facility] Work Phone: Start: 04-27-2024 Tobacco use and exposure Smokeless tobacco non-user [facility] Work Phone: Start: 04-27-2024 Alcoholic beverage intake Current drinker of alcohol (finding) [facility] Work Phone: Start: 1945 Sex assigned at Not on file [facility] Work Phone: Start: 04-17-2024 End: 04-27-2024 Exposure to SARS-CoV-2 (event) Not sure [facility] Medical Equipment Procedure Code Equipment Code Equipment Origin al Text Equipment Identifier Dates Arthroplasty, knee, total, minimally invasive Orthopaedic cement, non-medicated [id number] FDA Start: 04-14-2022 Arthroplasty, knee, total, minimally invasive Knee femur stem prosthesis ()[id number] FDA Start: 04-14-2022 Arthroplasty, knee, total, minimally invasive Uncoated knee femur prosthesis ()[id number] FDA Start: 04-14-2022 Arthroplasty, knee, total, minimally invasive Tibial insert ()[id number] FDA Start: 04-14-2022 Arthroplasty, knee, total, minimally invasive Polyethylene patella prosthesis ()[id number] FDA Start: 04-14-2022 Arthroplasty, knee, total, minimally invasive Polymer orthopaedic cement restrictor, non-bioabsorbable, sterile ()[id number] FDA Start: 04-14-2022 Arthroplasty, knee, total, minimally invasive Uncoated knee tibia prosthesis, metallic ()[id number] FDA Start: 04-14-2022 Arthroplasty, knee, total, minimally invasive Orthopaedic cement, non-medicated ()[id number] FDA Start: 05-12-2023 Arthroplasty, knee, total, minimally invasive Uncoated knee femur prosthesis ()[id number] FDA Start: 05-12-2023 Arthroplasty, knee, total, minimally invasive Tibial insert ()[id number] FDA Start: 05-12-2023 Arthroplasty, knee, total, minimally invasive Polyethylene patella prosthesis ()[id number] FDA Start: 05-12-2023 Arthroplasty, knee, total, minimally invasive Knee stem ()[id number] FDA Start: 05-12-2023 Arthroplasty, knee, total, minimally invasive Uncoated knee tibia prosthesis, metallic ()[id number] FDA Start: 05-12-2023 Goals Date Patient Goal Desired Activity /State Functional Status Date Assessment Result Facility 06-23-2023 Functional Status N/A General Gray cee Guzmanue 05-27-2023 Functional status Patient is Pro gressing Toward Baseline [facility] Work Phone: 05-18-2023 Functional status Patient Not at Baseline [facility] Work Phone: 04-28-2022 Functional status Patient is Pro gressing Toward Baseline [facility] Work Phone: 04-15-2022 Functional status Patient at Baseline [facility] Work Phone: Mental Status Date Assessment Result Facility 05-27-2023 Cognitive function Cognitive Sta tus Patient at Baseline [facility] Work Phone: 05-18-2023 Cognitive function Cognitive Sta tus Patient at Baseline [facility] Work Phone: 04-28-2022 Cognitive function Cognitive Sta tus Patient at Baseline [facility] Work Phone: 04-15-2022 Cognitive function Cognitive Sta tus Patient at Baseline [facility] Work Phone: Clinical Notes 07-12-2021 [...] extremity Doppler done in the past at [place] and it was negative for DVT and [...] discussion and plan. documented in this encounter [facility] Work Phone: 04-27-2024 Instructions Brenda Gonzalez LPN [...] EKG Lab work documented in this encounter [facility] Work Phone: 06-23-2023 Note Chief Complaint consultation [...] inactivated 04/09/2023 Recorded (more content not included)... [facility] Comment on above: Result Comment: Elec tronically Signed By: TRI VICKERS, John Echevarria\Date and Time Signed: 06/23/23 14:12 EST 05-27-2023 Evaluation note Encounter Date Diagnosis Assessment Notes May, Status post left knee replacement (ICD-10 - Z96.652) May, Aftercare following joint replacement surgery (ICD-10 - Z47.1) May, Presence of left artificial knee joint (ICD-10 - Z96.652) May, Other [facility] [place] [facility] Sutures removed today. Steri-Strips applied. [...] 3 view x-rays of the left knee. [employer] Other 11-21-2023 Progress note Author Bernadette Carr [facility] May 26, 2023 3:14pm Note Date/Time May 26, 2023 3:00pm [facility] [address] [place] [address] Hospitalist Progress Note Signed Patient: Al Kuo MR# : [id number] : 1945 Acct:[id number] Age/Sex: 77 / M Adm Date: 3 Loc: Room: 1V9481-7 Type: ADM IN Attending Dr: Delmer Whyte [...] Tablet PO 05/17/24 20:59 5 mg BID NKIOLAS Administration Ascorbic Acid 500 mg 05/18/23 17:00 [...] sleep apnea does not wear CPAP or [id number] Documented By: Bernadette Carr APRN 05/07 07/28 1500 Signed By: <Electronically signed by QUYNH Carr> 05/26/23 7154 [facility] Work Phone: 1(508) 497-912111-20-2023 Progress note Author Delmer Whyte [facility] May 25, 2023 3:29pm Note Date/Time May 25, 2023 3:29pm [facility] [address] [place] [address] Physiatry(Rehab) Progress Note Signed Patient: Al Kuo MR# : [id number] : 1945 Acct:[id number] Age/Sex: 77 / M Adm Date: 3 Loc: Room: [address] [place] [address] Type: ADM IN Attending Dr: Delmer Whyte [...] equipment to enhance the patient's a functional hindu Ensure adequate nutrition and hydration Sleep issues no concerns Pain: Continue current regimen Discharge planning: Home in a week or so. Plan: I completed a substantive portion of this encounter, the medical decision making portion of this note in its entirety, including Allied health note review, nursing note review, leadership development consultant note review, discussion with nursing and case management, and more than 50% of my time was spent on counseling and coordination of care, time spent 20 minutes Patient was personally seen by me, Dr. Whyte, on the day of encounter, reviewed the history and the relevant portions of the chart, including current orders, allied health and leadership development consultant notes, labs/imaging and performed jim elements of exam and I formulated the plan of care and facilitated the medical decision making. Documented By: Delmer Whyte MD 05/25/23 152 Signed By: <Electronically signed by Delmer Whyte MD> 05/25/23 1529 [facility] Work Phone: 1(473) 588-267511-18-2023 Progress note Author Omar Jackman [facility] May 23, 2023 3:41pm Note Date/Time May 23, 2023 3:41pm [facility] [address] [place] [address] Physiatry(Rehab) Progress Note Signed Patient: Al Kuo MR# : [id number] : 1945 Acct:[id number] Age/Sex: 77 / M Adm Date: 3 Loc: Room: 0T4824-3 Type: ADM IN Attending Dr: Delmer Whyte [...] Tablet PO 05/18/24 08:59 1,000 mcg QAM [facility] Administration Docusate Sodium 100 mg 05/18/23 15:53 [...] equipment to enhance the patient's a functional hindu Ensure adequate nutrition and hydration Sleep issues no concerns Pain: Continue current regimen Discharge planning: Home in a week or so. Plan: I completed a substantive portion of this encounter, the medical decision making portion of this note in its entirety, including Allied health note review, nursing note review, leadership development consultant note review, discussion with nursing and case management, and more than 50% of my time was spent on counseling and coordination of care, time spent 20 minutes Patient was personally seen by me, Dr. Jackman, on the day of encounter, reviewed the history and the relevant portions of the chart, including current orders, allied health and leadership development consultant notes, labs/imaging and performed jim elements of exam and I formulated the plan of care and facilitated the medical decision making. Documented By: Omar Jackman MD 1540 Signed By: <Electronically signed by Omar Jackman MD> 05/23/23 5982 [facility] Work Phone: 1(862) 687-630811-17-2023 Progress note Author Omar Jackman [facility] May 22, 2023 3:34pm Note Date/Time May 22, 2023 3:34pm [facility] [address] [place] [address] Physiatry(Rehab) Progress Note Signed Patient: Al Kuo MR# : [id number] : 1945 Acct:[id number] Age/Sex: 77 / M Adm Date: 3 Loc: Room: 4T3653-8 Type: ADM IN Attending Dr: Delmer Whyte [...] equipment to enhance the patient's a functional hindu Ensure adequate nutrition and hydration Sleep issues no concerns Pain: Continue current regimen Discharge planning: Home in a week or so. Plan: I completed a substantive portion of this encounter, the medical decision making portion of this note in its entirety, including Allied health note review, nursing note review, leadership development consultant note review, discussion with nursing and case management, and more than 50% of my time was spent on counseling and coordination of care, time spent 20 minutes Patient was personally seen by me, Dr. Jackman, on the day of encounter, reviewed the history and the relevant portions of the chart, including current orders, allied health and leadership development consultant notes, labs/imaging and performed jim elements of exam and I formulated the plan of care and facilitated the medical decision making. Documented By: Omar Jackman MD 1531 Signed By: <Electronically signed by Omar Jackman MD> 05/22/23 1538 [facility] Work Phone: 1(412) 978-999111-16-2023 Progress note Author Omar Jackman [facility] May 21, 2023 2:24pm Note Date/Time May 21, 2023 12:25pm [facility] [address] [place] [address] Physiatry(Rehab) Progress Note Signed Patient: Al Kuo MR# : [id number] : 1945 Acct:[id number] Age/Sex: 77 / M Adm Date: 3 Loc: Room: 3S1231-2 Type: ADM IN Attending Dr: Delmer Whyte [...] affect appropriate. Normal speech. Objective <Lillian Harris, SHUFFLE BOARD OPERATOR - Last Filed: 05/21/23 12:25> Labs 05/19/23 [...] mcg DAILY NIKOLAS Administration Assessment/Plan <Lillian Harris, SHUFFLE BOARD OPERATOR - Last Filed: 05/21/23 12:25> Assessment/Plan (1) [...] equipment to enhance the patient's a functional hindu Ensure adequate nutrition and hydration Sleep issues no concerns Pain: Continue current regimen Discharge planning: Home in a week or so. I spent greater than 15 minutes for services, including nwmz-ml-xlce encounter with the patient, discussion of the case, plan of care, and exam; and shrsyke-oy-kdra activities, such as reviewing pertinent leadership development consultant documentation, recent therapy notes, laboratory and radiology studies, and discussion of case with care team including physician, nursing, case coordinator, and therapists. More than 50 % of [...] Allied health note review, nursing note review, leadership development consultant note review, discussion with nursing and case management, and more than 50% of my time was spent on counseling and coordination of care, time spent 20 minutes Patient was personally seen by me, Dr. Jackman, on the day of encounter, within 24 hours of rehab admission, reviewed the history and the relevant portions of the chart, including current orders, allied health and leadership development consultant notes, labs/imaging and performed jim elements of exam and I formulated the plan of care and facilitated the medical decision making. Agree with above. Patient doing well. Hopeful DC next week early. Documented By: Lillian Harris APRN 05/21/23 1 219 Signed By: <Electronically signed by QUYNH Harris> 05/21/23 1225 <Electronically signed by Omar Jackman MD> 05/21/23 1424 [facility] Work Phone: 1(430) 713-323511-15-2023 Progress note Author Omar Jackman [facility] May 20, 2023 7:30pm Note Date/Time May 20, 2023 7:30pm [facility] [address] [place] [address] Physiatry(Rehab) Progress Note Signed Patient: Al Kuo MR# : [id number] : 1945 Acct:[id number] Age/Sex: 77 / M Adm Date: 3 Loc: Room: 3F4121-1 Type: ADM IN Attending Dr: Delmer Whyte [...] equipment to enhance the patient's a functional hindu Ensure adequate nutrition and hydration Sleep issues no concerns Pain: Continue current regimen Discharge planning: Home in a week or so. Plan: I completed a substantive portion of this encounter, the medical decision making portion of this note in its entirety, including Allied health note review, nursing note review, leadership development consultant note review, discussion with nursing and case management, and more than 50% of my time was spent on counseling and coordination of care, time spent 25 minutes Patient was personally seen by me, Dr. Jackman, on the day of encounter, within 24 hours of rehab admission, reviewed the history and the relevant portions of the chart, including current orders, allied health and leadership development consultant notes, labs/imaging and performed jim elements of exam and I formulated the plan of care and facilitated the medical decision making. Documented By: Omar Jackman MD 1926 Signed By: <Electronically signed by Omar Jackman MD> 05/20/231929 [facility] Work Phone: 1(358) 836-922511-15-2023 Consult note Author Taiwo Guy [facility] May 20, 2023 8:02am Note Date/Time May 19, 2023 6:15pm [facility] [address] [place] [address] Hospitalist Consult Note Signed Patient: Al Kuo MR# : [id number] : 1945 Acct:[id number] Age/Sex: 77 / M Adm Date: 3 Loc: Room: 1R4303-6 Type: ADM IN Attending Dr: Delmer Whyte MD Copies to: MD Real Oscar MD Joseph Riley, MD Linda Obika, SHUFFLE BOARD OPERATOR~ HPI DATE OF CONSULTATION: 05/19/23 REQUESTING PROVIDER: [...] of care and confirmed it with the resident/student/TRIBUNAL MEMBER. Mr. Al Kuo is a 77-year-old male [...] Tablet PO 05/18/24 08:59 1,000 mcg QAM [facility] Administration Docusate Sodium 100 mg 05/18/23 15:53 [...] % (Auto) 76.6, Lymph % (Auto) 11.5, [place] % (Auto) 9.4, Eos % (Auto) 2.2, Baso % (Auto) 0.3, Nucleat RBC Rel Count 0.1, Neut # (Auto) 8.1 H, Lymph # (Auto) 1.2, [place] # (Auto) 1.0 H, Eos # (Auto) [...] sleep apnea does not wear CPAP or [id number] 4. On chronic steroid use, patient does not know why they are on steroid Documented By: Bindu Zabala APRN 05/19/231802 Signed By: <Electronically signed by QUYNH Zabala> 05/19/23 182 <Electronically signed by Taiwo Guy MD> 05/20/23 0802 [facility] Work Phone: 1([phone]) 636-933011-14-2023 History and physical note Author Omar Jackman [facility] May 19, 2023 2:34pm Note Date/Time May 19, 2023 10:03am [facility] [address] [place] [address] Physiatry (Rehab) H&P Signed Patient: Al Kuo MR# : [id number] : 1945 Acct:[id number] Age/Sex: 77 / M Adm Date: 3 Loc: Room: [id number] Type: ADM IN Attending Dr: Delmer Whyte [...] patient is planning to return home alone. [facility] Medical History Arthritis Atrial fibrillation Colon cancer [...] 25 Mg Tablet) 25 mg PO BID [facility] Stop: 05/17/24 20:59 Last Admin: 05/19/23 09:11 Dose: 25 mg Cefadroxil (Cefadroxil 500 Mg Capsule) 500 mg PO BID [facility] Last Admin: 05/19/23 09:11 Dose: 500 mg Cyanocobalamin (Cyanocobalamin 1,000 Mcg Tablet) 1,000 mcg PO QAM [facility] Stop: 05/18/24 08:59 Last Admin: 05/19/23 09:12 Dose: 1,000 mcg Docusate Sodium (Docusate 100 Mg Capsule) 100 mg PO BID PRN PRN Reason: Constipation Stop: 05/17/24 15:52 Docusate Sodium (Docusate Enema 283 Mg/5 Ml Enema) 283 mg SC DAILY PRN PRN Reason: Constipation Stop: 05/17/24 15:52 Ferrous Sulfate (Ferrous Sulfate 324 Mg Tablet.Dr) 324 mg PO BID.WITH.MEALS [facility] Stop: 05/17/24 16:59 Last Admin: 05/19/23 09:12 Dose: 324 mg Folic Acid (Folic Acid 1 Mg Tablet) 1 mg PO DAILY [facility] Stop: 05/18/24 08:59 Last Admin: 05/19/23 09:12 [...] 10 Mg Tablet) 10 mg PO DAILY [facility] Stop: 05/18/24 08:59 Last Admin: 05/19/23 09:11 Dose: 10 mg Senna/Docusate Sodium (Sennosides/Docusate 8.6-50mg 1 Tab Tablet) 2 tab PO DAILY [facility] Stop: 05/18/24 08:59 Last Admin: 05/19/23 09:11 Dose: 2 tab Sennosides (Sennosides 8.6 Mg Tablet) 2 tab PO DAILY@12 PRN PRN Reason: If no BM in 2 days Stop: 05/18/24 11:59 Sodium Chloride (Sodium Chloride 0.9 % 10 Ml Syringe) 0 ml IV-PUSH PRN PRN PRN Reason: Flush Stop: 05/17/24 15:52 Spironolactone (Spironolactone 25 Mg Tablet) 25 mg PO QAM [facility] Stop: 05/18/24 08:59 Last Admin: 05/19/23 09:11 Dose: 25 mg Tramadol HCl (Tramadol 50 Mg Tablet) 50 mg PO Q4H PRN PRN Reason: Pain Scale 5 - 7 Stop: 11/14/23 15:46 Vitamin D (Cholecalciferol 125 Mcg (5,000 Units) Capsule) 125 mcg PO DAILY [facility] Stop: 05/18/24 08:59 Last Admin: 05/19/23 09:12 [...] % (Auto) 76.6 Lymph % (Auto) 11.5 [place] % (Auto) 9.4 Eos % (Auto) 2.2 Baso % (Auto) 0.3 Nucleat RBC Rel Count 0.1 Neut # (Auto) 8.1 H Lymph # (Auto) 1.2 [place] # (Auto) 1.0 H Eos # (Auto) [...] 24 hour daily monitoring and intervention from Audio Narrator as well as other consulting physicians including internal medicine as well as 24 hour daily merchant police nursing - for medical safe / optimal [...] equipment to enhance the patient's a functional hindu Ensure adequate nutrition and hydration Sleep issues no concerns Pain: Continue current regimen Discharge planning: Home in a week or so. I spent greater than 35 minutes for services, including jjls-jn-cwnc encounter with the patient, discussion of the case, plan of care, and exam; and yzcybjx-cb-mdkh activities, such as reviewing pertinent leadership development consultant documentation, recent therapy notes, laboratory and radiology studies, and discussion of case with care team including physician, nursing, case coordinator, and therapists. More than 50 % of time was spent on patient/family counseling or coordination of care. Plan: I completed a substantive portion of this encounter, the medical decision making portion of this note in its entirety, including Allied health note review, nursing note review, leadership development consultant note review, discussion with nursing and case management, and more than 50% of my time was spent on counseling and coordination of care, time spent 45 minutes Patient was personally seen by me, Dr. Jackman, on the day of encounter, within 24 hours of rehab admission, reviewed the history and the relevant portions of the chart, including current orders, allied health and leadership development consultant notes, labs/imaging and performed jim elements [...] QUYNH Harris> 05/19/23 1159 <Electronically signed by mOar Jackman MD> 05/19/23 1436 [facility] Work Phone: 1(121) 346-163210-25-2023 Evaluation note* Encounter Date Diagnosis Assessment Notes Treatment Notes Treatment Clinical Notes Apr, Aftercare following joint replacement surgery (ICD-10 - Z47.1) Apr, Presence of right artificial knee joint (ICD-10 - Z96.651) Apr, Acute pain of left knee (ICD-10 - M25.562) Apr, Age-related osteoporosis without current pathological fracture (ICD-10 - M81.0) Apr, 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 Left TKA Home Medications - DVT prophylaxis: Home Eliquis - NSAID: Prednisone 10 mg x 10 days postop - Disposition: Inpatient with possible rehab. He did very well with inpatient rehab after his right knee. Joints Meeting Checklist - Pharmacy: [facility] bed - Approach/Technique: BUTCH - Implants: [...] above surgery. OARRS report generated and reviewed. [employer] Other 11-01-2022 Evaluation note* Encounter Date Diagnosis Assessment Notes Treatment Notes Treatment Clinical Notes May, Aftercare following joint replacement surgery (ICD-10 - Z47.1) May, Presence of right artificial knee joint (ICD-10 - Z96.651) May, Other [facility] R TKA at [facility] on 04/14/2022 Overall doing very well. Zipline [...] 3 view x-rays of the right knee. [employer] Other 10-22-2022 Progress note Author Watson Ryan [facility] April 26, 2022 2:20pm Note Date/Time April 26, 2022 2 :06pm [facility] [address] [place] [address] Hospitalist Progress Note Signed Patient: Al Kuo MR# : [id number] : 1945 Acct:[id number] Age/Sex: 76 / M Adm Date: 2 Loc: Room: 6F2263-8 Type: ADM IN Attending Dr: Delmer Whyte [...] signed by Watson Ryan MD> 04/26/22 1420 [facility] Work Phone: 1(281) 558-462610-20-2022 Progress note Author Tommy Bah [facility] April 24, 2022 11:30am Note Date/Time April 23, 2022 1 2:07pm [facility] [address] [place] [address] Physiatry(Rehab) Progress Note Signed Patient: Al Kuo MR# : [id number] : 1945 Acct:[id number] Age/Sex: 76 / M Adm Date: 2 Loc: Room: [address] [place] [address] Type: ADM IN Attending Dr: Delmer Whyte [...] oriented, calm and cooperative, no acute distress. [facility] Head: normal to inspection Eyes General: [...] normal affect Endurance fair Objective <Lillian Burnettarvind, SHUFFLE BOARD OPERATOR - Last Filed: 04/23/22 12:30> Labs CBC [...] 10 Mg Tablet PO 04/19/23 08:59 QAM [facility] Melatonin 5 mg 04/16/22 22:00 04/22/22 20:02 Melatonin 5 Mg Tablet PO 04/16/23 21:59 5 mg QHS NIKOLAS Administration Omeprazole 20 mg 04/18/22 11:20 04/23/22 08:06 Omeprazole 20 Mg Capsule. PO 04/18/23 11:19 Not Given DAILY [facility] Ondansetron HCl 8 mg 04/15/22 16:42 Ondansetron [...] equipment to enhance the patient's a functional hindu Encourage deep breathing exercises and incentive spirometry [...] Pain control: Tylenol, topical modalities. Minimize opioids. [place] ice. Bowel and bladder: Bowel regimen in place. Skin: Prevent skin breakdown. Monitor operative site. Sleep: Poor sleep reported. Initiate melatonin and trazodone. DVT prophylaxis: Covered with Eliquis. Functional status: Needs assist Discharge planning: Hopefully home in 1 to 2 weeks. I spent greater than 20 minutes for services, including hzli-dz-myzi encounter with the patient, discussion of the case, plan of care, and exam; and qoyjmzn-vy-hlmb activities, such as reviewing pertinent leadership development consultant documentation, recent therapy notes, laboratory and radiology studies, and discussion of case with care team including physician, nursing, case coordinator, and therapists. More than 50 % of [...] Allied health note review, nursing note review, leadership development consultant note review, discussion with nursing and case management Documented By: Lillian Harris APRN 04/23/22 1 206 Signed By: <Electronically signed by QUYNH Harris> 04/23/22 1231 <Electronically signed by Tommy Bah Jr DO> 04/24/22 3408 [facility] Work Phone: 1([phone]) 509-653810-20-2022 Progress note Author Tommy Bah [facility] April 24, 2022 11:29am Note Date/Time April 24, 2022 1 1:29am [facility] [address] [place] [address] Physiatry(Rehab) Progress Note Signed Patient: Al Kuo MR# : [id number] : 1945 Acct:[id number] Age/Sex: 76 / M Adm Date: 2 Loc: Room: 4J3402-3 Type: ADM IN Attending Dr: Delmer Whyte [...] equipment to enhance the patient's a functional hindu Encourage deep breathing exercises and incentive spirometry [...] Pain control: Tylenol, topical modalities. Minimize opioids. [place] ice. Bowel and bladder: Bowel regimen in place. Skin: Prevent skin breakdown. Monitor operative site. Sleep: Poor sleep reported. Initiate melatonin and trazodone. DVT prophylaxis: Covered with Eliquis. Functional status: Needs assist Discharge planning: Hopefully home in 1 to 2 weeks. Documented By: Tommy Bah Jr, 2 1126 Signed By: <Electronically signed by Tommy Bah Jr, DO> 04/24/22 1129 [facility] Work Phone: 1(287) 840-489910-20-2022 Progress note Author Andrea Govea [facility] April 24, 2022 7:07am Note Date/Time April 24, 2022 7 :07am [facility] [address] [place] [address] Orthopedic Progress Note Signed Patient: Al Kuo MR# : [id number] : 1945 Acct:[id number] Age/Sex: 76 / M Adm Date: 2 Loc: Room: 1E0582-7 Type: ADM IN Attending Dr: Delmer Whyte [...] signed by Andrea Govea MD> 04/24/22 0707 [facility] Work Phone: 1(855) 869-889310-18-2022 Progress note Author Tommy Bah [facility] April 22, 2022 11:44am Note Date/Time April 22, 2022 1 1:44am [facility] [address] [place] [address] Physiatry(Rehab) Progress Note Signed Patient: Al Kuo MR# : [id number] : 1945 Acct:[id number] Age/Sex: 76 / M Adm Date: 2 Loc: Room: 1B5965-5 Type: ADM IN Attending Dr: Delmer Whyte [...] equipment to enhance the patient's a functional hindu Encourage deep breathing exercises and incentive spirometry [...] Pain control: Tylenol, topical modalities. Minimize opioids. [place] ice. Bowel and bladder: Bowel regimen in place. Skin: Prevent skin breakdown. Monitor operative site. Sleep: Poor sleep reported. Initiate melatonin and trazodone. DVT prophylaxis: Covered with Eliquis. Functional status: Needs assist Discharge planning: Hopefully home in 1 to 2 weeks. Documented By: Tommy Bah Jr, DO 2 1142 Signed By: <Electronically signed by Tommy Bah Jr, DO> 04/22/22 1144 [facility] Work Phone: 1(143) 445-712010-17-2022 Progress note Author Tommy Bah [facility] April 21, 2022 10:46am Note Date/Time April 21, 2022 1 0:44am [facility] [address] [place] [address] Physiatry(Rehab) Progress Note Signed Patient: Al Kuo MR# : [id number] : 1945 Acct:[id number] Age/Sex: 76 / M Adm Date: 2 Loc: Room: [address] [place] [address] Type: ADM IN Attending Dr: Delmer Whyte [...] % (Auto) 83.2 Lymph % (Auto) 5.6 [place] % (Auto) 8.5 Eos % (Auto) 2.4 Baso % (Auto) 0.3 Neut # (Auto) 8.7 H Lymph # (Auto) 0.6 L [place] # (Auto) 0.9 H Eos # (Auto) [...] Tablet PO 04/15/23 20:59 Not Given BID [facility] Ascorbic Acid 500 mg 04/15/22 17:00 04/21/22 [...] Syringe IV-PUSH 04/17/23 21:59 10 ml Q8H [facility]IO[facility] Administration Spironolactone 25 mg 04/16/22 09:00 04/21/22 [...] equipment to enhance the patient's a functional hindu Encourage deep breathing exercises and incentive spirometry [...] Pain control: Tylenol, topical modalities. Minimize opioids. [place] ice. Bowel and bladder: Bowel regimen in place. Skin: Prevent skin breakdown. Monitor operative site. Sleep: Poor sleep reported. Initiate melatonin and trazodone. DVT prophylaxis: Covered with Eliquis. Functional status: Needs assist Discharge planning: Hopefully home in 1 to 2 weeks. Documented By: Tommy Bah Jr, 2 1041 Signed By: <Electronically signed by Tommy Bah Jr, DO> 04/21/22 1046 [facility] Work Phone: 1(333) 234-305110-15-2022 Progress note Author Rain Ramos [facility] April 19, 2022 9:32am Note Date/Time April 19, 2022 9 :32am [facility] [address] [place] [address] Hospitalist Progress Note Signed Patient: Al Kuo MR# : [id number] : 1945 Acct:[id number] Age/Sex: 76 / M Adm Date: 2 Loc: Room: [address] [place] [address] Type: ADM IN Attending Dr: Delmer Whyte [...] time and person. Patient is obese HEENT: [place] conjunctiva and NL buccal mucosa Neck: Supple, [...] PCP and out patient providers to obtain [facility] record entirely to follow up on illnesses, symptoms, abnormal findings that I have and have not addressed during this encounter and hospitalization in out patient setting. Documented By: Rain Ramos MD 04/19/2230 Signed By: <Electronically signed by Rain Ramos MD> 04/19/2232 [facility] Work Phone: 1(728) 122-498710-14-2022 Progress note Author Delmer Whyte [facility] April 18, 2022 3:40pm Note Date/Time April 18, 2022 3 :40pm [facility] [address] [place] [address] Physiatry(Rehab) Progress Note Signed Patient: Al Kuo MR# : [id number] : 1945 Acct:[id number] Age/Sex: 76 / M Adm Date: 2 Loc: Room: [address] [place] [address] Type: ADM IN Attending Dr: Delmer Whyte [...] % (Auto) 85.4 Lymph % (Auto) 5.3 [place] % (Auto) 7.9 Eos % (Auto) 1.2 Baso % (Auto) 0.2 Neut # (Auto) 8.2 H Lymph # (Auto) 0.5 L [place] # (Auto) 0.8 Eos # (Auto) 0.1 [...] MPV Neut % (Auto) Lymph % (Auto) [place] % (Auto) Eos % (Auto) Baso % (Auto) Neut # (Auto) Lymph # (Auto) [place] # (Auto) Eos # (Auto) Baso # [...] equipment to enhance the patient's a functional hindu Encourage deep breathing exercises and incentive spirometry [...] Pain control: Tylenol, topical modalities. Minimize opioids. [place] ice. Bowel and bladder: Bowel regimen in place. Skin: Prevent skin breakdown. Monitor operative site. Sleep: Poor sleep reported. Initiate melatonin and trazodone. DVT prophylaxis: Covered with Eliquis. Functional status: Needs assist Discharge planning: Hopefully home in 1 to 2 weeks. I spent greater than 35 minutes for services, including lkae-zb-oftj encounter with the patient, discussion of the case, plan of care, and exam; and cjxlpmh-bt-qona activities, such as reviewing pertinent leadership development consultant documentation, recent therapy notes, laboratory and radiology studies, and discussion of case with care team including physician, nursing, case coordinator, and therapists. More than 50 % of time was spent on patient/family counseling or coordination of care. Documented By: Delmer Whyte MD 04/18/22 1536 Signed By: <Electronically signed by Delmer Whyte MD> 04/18/22 1549 [facility] Work Phone: [phone] Progress note Author Delmer Whyte [facility] April 18, 2022 12:44pm Note Date/Time April 17, 2022 1 2:09pm [facility] [address] [place] [address] Physiatry(Rehab) Progress Note Signed Patient: Al Kuo MR# : [id number] : 1945 Acct:[id number] Age/Sex: 76 / M Adm Date: 2 Loc: Room: 1M6280-2 Type: ADM IN Attending Dr: Delmer Whyte [...] equipment to enhance the patient's a functional hindu Encourage deep breathing exercises and incentive spirometry [...] Pain control: Tylenol, topical modalities. Minimize opioids. [place] ice. Bowel and bladder: Bowel regimen in place. Skin: Prevent skin breakdown. Monitor operative site. Sleep: Poor sleep reported. Initiate melatonin and trazodone. DVT prophylaxis: Covered with Eliquis. Functional status: Needs assist Discharge planning: Hopefully home in 1 to 2 weeks. I spent greater than 25 minutes for services, including zjgu-op-qltf encounter with the patient, discussion of the case, plan of care, and exam; and ybqqpsn-ur-ohle activities, such as reviewing pertinent leadership development consultant documentation, recent therapy notes, laboratory and radiology studies, and discussion of case with care team including physician, nursing, case coordinator, and therapists. More than 50 % of [...] Pain control: Tylenol, topical modalities. Minimize opioids. [place] ice. Bowel and bladder: Bowel regimen in place. Skin: Prevent skin breakdown. Monitor operative site. Sleep: Poor sleep reported. Initiate melatonin and trazodone. DVT prophylaxis: Covered with Eliquis. Functional status: Needs assist Discharge planning: Hopefully home in 1 to 2 weeks. I spent greater than 25 minutes for services, including gsaq-vg-ojhf encounter with the patient, discussion of the case, plan of care, and exam; and rcvhnem-jp-rskx activities, such as reviewing pertinent leadership development consultant documentation, recent therapy notes, laboratory and radiology studies, and discussion of case with care team including physician, nursing, case coordinator, and therapists. More than 50 % of time was spent on patient/family counseling or coordination of care. Plan: I reviewed the history and the relevant portions of the chart, including current orders, allied health and leadership development consultant notes, labs/imaging and plan of care as above. Documented By: Lillianjaylene Harris APRN 04/17/22 1 207 Signed By: <Electronically signed by QUYNH Harris> 04/17/22 1245 <Electronically signed by Delmer Whyte MD> 04/18/22 1244 [facility] Work Phone: 1([phone]) 167-288610-14-2022 Progress note Author Rain Ramos [facility] April 18, 2022 11:25am Note Date/Time April 18, 2022 1 1:25am [facility] [address] [place] [address] Hospitalist Progress Note Signed Patient: Al Kuo MR# : [id number] : 1945 Acct:[id number] Age/Sex: 76 / M Adm Date: 2 Loc: Room: [address] [place] [address] Type: ADM IN Attending Dr: Delmer Whyte [...] time and person. Patient is obese HEENT: [place] conjunctiva and NL buccal mucosa Neck: Supple, [...] PCP and out patient providers to obtain [facility] record entirely to follow up on illnesses, symptoms, abnormal findings that I have and have not addressed during this encounter and hospitalization in out patient setting. Documented By: Rain Ramos MD 04/18/221121 Signed By: <Electronically signed by Rain Ramos MD> 04/18/22 112 [facility] Work Phone: 1(318) 869-888510-13-2022 Progress note Author Rain Ramos [facility] April 17, 2022 9:55am Note Date/Time April 17, 2022 9 :52am [facility] [address] [place] [address] Hospitalist Progress Note Signed Patient: Al Kuo MR# : [id number] : 1945 Acct:[id number] Age/Sex: 76 / M Adm Date: 2 Loc: 5T Room: 6M8329-7 Type: ADM IN Attending Dr: Delmer Whyte [...] time and person. Patient is obese HEENT: [place] conjunctiva and NL buccal mucosa Neck: Supple, [...] PCP and out patient providers to obtain [facility] record entirely to follow up on illnesses, symptoms, abnormal findings that I have and have not addressed during this encounter and hospitalization in out patient setting. Documented By: Rain Ramos MD 04/17/22 0951 Signed By: <Electronically signed by Rain Ramos MD> 04/17/22 0900 [facility] Work Phone: 1(871) 995-957610-13-2022 Consult note Author Rain Ramos [facility] April 17, 2022 7:40am Note Date/Time April 16, 2022 6 :10pm [facility] [address] [place] [address] Hospitalist Consult Note Signed Patient: Al Kuo MR# : [id number] : 1945 Acct:[id number] Age/Sex: 76 / M Adm Date: 2 Loc: Room: [address] [place] [address] Type: ADM IN Attending Dr: Delmer Whyte [...] negative unless noted below or in HPI [facility] Attestation Statement: The following information was validated [...] signed by Rain Ramos MD> 04/17/22 0740 [facility] Work Phone: 1(332) 968-626710-12-2022 History and physical note Author Delmer Whyte [facility] April 16, 2022 3:15pm Note Date/Time April 16, 2022 1 0:07am [facility] EN[facility] [address] [place] [address] Physiatry (Rehab) H&P Signed Patient: Al Kuo MR# : [id number] : 1945 Acct:[id number] Age/Sex: 76 / M Adm Date: 2 Loc: Room: [address] [place] [address] Type: ADM IN Attending Dr: Delmer Whyte [...] fibrillation, gout are stable with current management. [facility] Attestation Statement: The following information was validated [...] 300 Mg Tablet) 300 mg PO QAM [facility] Stop: 04/16/23 08:59 Amlodipine Besylate (Amlodipine 10 [...] 500 Mg Capsule) 500 mg PO BID [facility] Stop: 04/22/22 23:59 Last Admin: 04/15/22 21:39 Dose: 500 mg Cyanocobalamin (Cyanocobalamin 1,000 Mcg Tablet) 1,000 mcg PO QAM [facility] Stop: 04/16/23 08:59 Docusate Sodium (Docusate 100 Mg Capsule) 100 mg PO BID PRN PRN Reason: Constipation Stop: 04/15/23 16:50 Docusate Sodium (Docusate Enema 283 Mg/5 Ml Enema) 283 mg SC DAILY PRN PRN Reason: Constipation Stop: 04/15/23 16:50 Ferrous Sulfate (Ferrous Sulfate 324 Mg Tablet.Dr) 324 mg PO Q48H [facility] Stop: 04/16/23 09:59 Folic Acid (Folic Acid 1 Mg Tablet) 1 mg PO DAILY [facility] Stop: 04/16/23 08:59 Hydralazine HCl (Hydralazine 50 Mg Tablet) 100 mg PO BID NIKOLAS Stop: 04/15/23 20:59 Last Admin: 04/15/22 21:38 Dose: 100 mg Lactulose (Lactulose 20 Gm/30 Ml Udc) 30 gm PO DAILY PRN PRN Reason: Constipation Stop: 04/15/23 16:50 Lisinopril (Lisinopril 40 Mg Tablet) 40 mg PO QAM [facility] Stop: 04/16/23 08:59 Ondansetron HCl (Ondansetron Odt [...] 25 Mg Tablet) 25 mg PO QAM [facility] Stop: 04/16/23 08:59 Trazodone HCl (Trazodone 50 Mg Tablet) 50 mg PO QHS [facility] Stop: 04/16/23 21:59 Vitamin D (Cholecalciferol 125 [...] 10 days Expected Discharge Destination: Home Rehabilitation [facility]: Primary Diagnosis:Right total knee arthroplasty; morbid [...] 24 hour daily monitoring and intervention from Audio Narrator as well as other consulting physicians including internal medicine as well as 24 hour daily merchant police nursing - for medical safe / optimal [...] equipment to enhance the patient's a functional hindu Encourage deep breathing exercises and incentive spirometry [...] Pain control: Tylenol, topical modalities. Minimize opioids. [place] ice. Bowel and bladder: Bowel regimen in place. Skin: Prevent skin breakdown. Monitor operative site. Sleep: Poor sleep reported. Initiate melatonin and trazodone. DVT prophylaxis: Covered with Eliquis. Functional status: Needs assist Discharge planning: Hopefully home in 1 to 2 weeks. Documented By: Delmer Whyte MD 04/16/22 1006 Signed By: <Electronically signed by Delmer Whyte MD> 04/16/22 [facility] Work Phone: 1(352) 589-547110-12-2022 Progress note Author Andrea Govea [facility] April 16, 2022 1:47pm Note Date/Time April 16, 2022 1 :47pm [facility] [address] [place] [address] Orthopedic Progress Note Signed Patient: Al Kuo MR# : [id number] : 1945 Acct:[id number] Age/Sex: 76 / M Adm Date: 2 Loc: Room: 1Q9200-4 Type: ADM IN Attending Dr: Delmer Whyte [...] <Electronically signed by Andrea Govea MD> 04/16/22 1340 [facility] Work Phone: 1(755) 327-430110-11-2022 Progress note Author Andrea Govea [facility] April 15, 2022 7:45am Note Date/Time April 15, 2022 7 :45am [facility] EN[facility] [address] [place] [address] Orthopedic Progress Note Signed Patient: Al Kuo MR# : [id number] : 1945 Acct:[id number] Age/Sex: 76 / M Adm Date: 2 Loc: Room: [address] [place] [address] Type: [facility] Attending Dr: Andrea Govea II, MD [...] 83.0 91.6 Lymph % (Auto) 6.6 3.5 [place] % (Auto) 7.8 4.8 Eos % (Auto) 2.2 0.0 Baso % (Auto) 0.4 0.1 Neut # (Auto) 7.5 11.1 H Lymph # (Auto) 0.6 L 0.4 L [place] # (Auto) 0.7 0.6 Eos # (Auto) [...] MPV Neut % (Auto) Lymph % (Auto) [place] % (Auto) Eos % (Auto) Baso % (Auto) Neut # (Auto) Lymph # (Auto) [place] # (Auto) Eos # (Auto) Baso # [...] signed by Andrea Govea MD> 04/15/22 0745 [facility] Work Phone: [phone] 853-645510-10-2022 Consult note Author Tonya Mcgregor [facility] April 14, 2022 7:53pm Note Date/Time April 14, 2022 7 :51pm [facility] [address] [place] [address] Hospitalist Consult Note Signed with Addenda Patient: Al Kuo MR# : [id number] : 1945 Acct:[id number] Age/Sex: 76 / M Adm Date: 2 Loc: 4N Room: 4C3657-2 Type: [facility] Attending Dr: Andrea Govea II, MD [...] Tablet PO 04/14/23 10:44 1,000 mg Q8H [facility] Administration Allopurinol 300 mg 04/15/22 09:00 Allopurinol 300 Mg Tablet PO 04/15/23 08:59 QAM [facility] Amlodipine Besylate 10 mg 04/15/22 09:00 Amlodipine 10 Mg Tablet PO 04/15/23 08:59 DAILY [facility] Apixaban 5 mg 04/14/22 21:00 Apixaban 5 Mg Tablet PO 04/14/23 20:59 BID [facility] Ascorbic Acid 500 mg 04/14/22 17:00 04/14/22 18:47 Ascorbic Acid 500 Mg Tablet PO 04/14/23 16:59 Not Given BID.WITH.MEALS [facility] Carvedilol 25 mg 04/15/22 08:00 Carvedilol 25 Mg Tablet PO 04/15/23 07:59 BID.WITH.MEALS [facility] Cefadroxil 500 mg 04/15/22 21:00 Cefadroxil 500 Mg Capsule PO 04/22/22 09:01 BID [facility] Diphenhydramine HCl 25 mg 04/14/22 10:40 Diphenhydramine 25 Mg Capsule PO 04/14/23 10:39 HS PRN Insomnia Diphenhydramine HCl 25 mg 04/14/22 10:40 Diphenhydramine 25 Mg Capsule PO 04/14/23 10:39 Q6H PRN Itching Ferrous Sulfate 324 mg 04/14/22 17:00 04/14/22 18:47 Ferrous Sulfate 324 Mg Tablet.Dr PO 04/14/23 16:59 Not Given BID.WITH.MEALS [facility] Hydralazine HCl 100 mg 04/14/22 21:00 Hydralazine 50 Mg Tablet PO 04/14/23 20:59 BID [facility] Lactated Ringer's 1,000 mls @ 20 mls/hr 04/14/22 08:59 04/14/22 17:28 Lactated Ringers IV 04/15/22 08:58 20 mls/hr .Q24H ONE Infusion Lactated Ringer's 1,000 mls @ 75 mls/hr 04/14/22 10:45 04/14/22 18:47 Lactated Ringers IV 04/14/23 10:44 75 mls/hr .[id number] [facility]IKOLAS Administration Cefazolin Sodium 1 gm in 50 mls @ 100 mls/hr 04/15/22 00:30 Ancef IV 04/15/22 08:59 Q8H [facility] Lisinopril 40 mg 04/15/22 09:00 Lisinopril 40 Mg Tablet PO 04/15/23 08:59 QAM [facility] Mineral Oil 1 each 04/17/22 10:40 Mineral Oil ([place]) 1 Each Enema SC ONCE PRN Constipation [...] 25 Mg Tablet PO 04/15/23 08:59 QAM [facility] Tramadol HCl 50 mg 04/14/22 10:40 Tramadol 50 Mg Tablet PO 10/11/22 10:39 Q4H PRN Pain Scale 1 - 5 Vitamin D 125 mcg 04/15/22 09:00 Cholecalciferol 125 Mcg (5,000 Units) Tablet PO 04/15/23 08:59 DAILY [facility] Exam Physical Exam Vital Signs: Temp Pulse [...] % (Auto) 83.0, Lymph % (Auto) 6.6, [place] % (Auto) 7.8, Eos % (Auto) 2.2, Baso % (Auto) 0.4, Neut # (Auto) 7.5, Lymph # (Auto) 0.6 L, [place] # (Auto) 0.7, Eos # (Auto) 0.2, [...] <Electronically signed by Tonya Mcgregor DO> 04/14/221950 [facility] Work Phone: 1(704) 532-554409-30-2022 Evaluation note* Encounter Date Diagnosis Assessment Notes [...] patient could proceed with surgery safely. The decision support manager was vital for surgery timing and [...] surgery. 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 Once our office has reviewed the [...] or absent clearances could delay their surgery. [facility] Other 05-27-2022 Evaluation note* Encounter Date Diagnosis [...] times a day. 3. NSAIDs: Recommended continued [id number] oral anti-inflammatories. 4. Physical therapy: Discussed formal [...] the lymphedema. 7. Follow-up in 2 months [facility] Other 01-07-2022 NotePROCEDURE: XR KNEE RT 4V [...] Electronically authenticated by: YURI PATEL Date: 2021-07-12 11:53[facility] Delmer Whyte [facility] May 27, 2023 1:32pm Note Date/Time May 27, 2023 8:50am [facility] [address] [place] [address] Discharge Summary Signed Patient: Al Kou MR# : [id number] : 1945 Acct:[id number] Age/Sex: 77 / M Adm Date: 3 Loc: Room: 7M5584-[address]: Delmer Whyte MD Copies to: [...] You will have Outpatient Physical Therapy at [facility] ( ). The order has already [...] signed by Delmer Whyte MD> 05/27/23 1332 [facility] Work Phone: evaluation + Plan note Future Appointments Appointment Date:07/07/2023 01:40:00 PM Scheduled Provider:John BARTLETT MD Location:[facility] Appointment Type: Procedure 30 General Surgery [place] Evaluation + Plan note Future Appointments Appointment Date:07/22/2023 01:40:00 PM Scheduled Provider:John BARTLETT MD Location:[facility] Appointment Type: Established 15 General Surgery [place] evaluation noteNo assessment information available [facility] Work Phone: evaluation note* Diagnosis Onset Date Resolution Status Gout acute Hyperlipidemia acute Hypertension acute TATIANA (obstructive sleep apnea) acute Osteoarthritis acute Status post right knee replacement acute [facility] Work Phone: evaluation note* Diagnosis Onset [...] acute Status post right knee replacement acute [facility] Work Phone: Evaluation noteNo [facility]Well[facility] Other Evaluation note* Diagnosis Onset Date Resolution [...] acute Status post left knee replacement acute [facility] Work Phone: Evaluation note* Diagnosis Permanent atrial [...] 40.0-44.9, adult (Multi) documented in this encounter [facility] Work Phone: History general Narrative - Reported* Type Description Date Medical History high blood pressure Medical History high cholesterol Medical History afib Surgical History colon X 2 Surgical History lumbar surgery [facility] Other History of Present illness Narrative* The patient states he has been generally doing well since the last visit. Comorbid Illnesses: hypertension. * Symptoms: denies chest pain at rest, denies exertional chest pain, denies dyspnea, denies fatigue, stable exercise intolerance, denies palpitations, denies edema, denies orthopnea, denies dizziness and denies orthostatic dizziness. * Disease Monitoring: -[facility] 250 DO Work Phone: History [...] with heart rate control and anticoagulation strategy [facility] 250 DO Work Phone: History [...] to him to restrict his salt intake [facility] 250 DO Work Phone: History [...] extremity Doppler done in the past at [place] and it was negative for DVT and the patient is on chronic anticoagulation * 6. Patient brought copy of his lab work which demonstrated a little bit elevated C-reactive proteinwhich I indicated to him that it can indicate increased risk of heart disease and discussed with him at length primary prevention-7. Follow-up in 6 months [facility] 250 DO Work Phone: History of Present [...] extremity Doppler done in the past at [place] and it was negative for DVT and [...] primary prevention-7. Follow-up in 6 months [facility] 320 DO Work Phone: Hospital course Narrative No data available for this section General Surgery [facility] Discharge instructions Additional Instructions Rehab to manage - Full Code - Ortho assessment per routine - Keep wound vac in place for 14days then remove and maintain dressing - Joint Re[facility] Work [facility] Hospital Discharge instructionsAmbulatory Orders* [...] knees or thigh high KARL hose. -Diet: Regular.[facility] Work Phone: Hospital Discharge instructions Additional Instructions [...] You will have Outpatient Physical Therapy at [facility] ( ). The order has already [...] office to inform them prior to your appointment.[facility] Work Phone: Hospital Discharge instructions No data available for this section General Surgery [place] Progress note No data available for this section General Surgery [place] Chief Complaint * I am doing well * AL KUO is being seen for a 6 week follow-up of hypertension. * Patient presents to [facility] for cardiovascular evaluation. * Patient is ambulatory [...] Follow Up In Cardiology Jammie Velasquez MD [address] [place] [address], [address] [address] Phone: tel: fax: Jammie Velasquez MD [address] [place] [address] 2, [address] [address] Phone: tel: fax: Referral ID Status Reason Start Date Expiration Date V isits Requested Visits Authorized [id number] Authorized 08/18/2023 08/17/2024 1 1 Care Teams [...] MD Other Provider Active Kimmy Wong , SHUFFLE BOARD OPERATOR Other Provider Active Bandar Caro , DO [...] MD Other Provider Active Priscilla Bennett , TRIBUNAL MEMBER-C Other Provider Active Shar Kahn MD Other Provider Active Evin Silver MD Other Provider Active Lilian Shrestha MD Other Provider Active Tarun Bateman MD Other Provider Active Tonya Mcgregor , DO Other Provider Active Jennifer Carrillo MD Other Provider Active Paco Kim , DO Other Provider Active Saúl Funk , DO Other Provider Active Binduluis antonio Zabala , SHUFFLE BOARD OPERATOR Other Provider Active Jimenez Bran , DO [...] Matos MD Other Provider Active Kimmy Wong SHUFFLE BOARD OPERATOR Other Provider Active Bandar Caro , DO [...] MD Other Provider Active Priscilla Bennett , TRIBUNAL MEMBER-C Other Provider Active Shar Kahn MD Other [...] MD Other Provider Active Kimmy Wong , SHUFFLE BOARD OPERATOR Other Provider Active Bandar Caro , DO Other Provider Active Butch Ballard MD Other Provider Active Cruz Phipps , DO Other Provider Active Taiwo Guy MD Other Provider Active Katy Irvin MD Other Provider Active Bernadette Carr , SHUFFLE BOARD OPERATOR Other Provider Active Carol Carias MD Other Provider Active Roel Macedo MD Other Provider Active Dotty Benson MD Other Provider Active Phyllis Medellin MD Other Provider Active John Hall , DO Other Provider Active Familia Dos Santos MD Other Provider Active Zach Leavitt MD Other Provider Active Priscilla Bennett , TRIBUNAL MEMBER-C Other Provider Active Shar Kahn MD Other Provider Active Evin Silver MD Other Provider Active Sabas Kc MD Other Provider Active Tarun Bateman MD Other Provider Active Tonya Mcgregor , DO Other Provider Active Paco Kim , DO Other Provider Active Saúl Funk , DO Other Provider Active Bindu Zabala , SHUFFLE BOARD OPERATOR Other Provider Active Jimenez Bran , DO Other Provider Active Watson Ryan MD Other Provider Active Gerda Collins , SHUFFLE BOARD OPERATOR Other Provider Active Marilee Platt , SHUFFLE BOARD OPERATOR Other Provider Active Bianca Banuelos MD Other Provider Active Colby Acosta MD Other Provider Active Teo Ennis , DO Other Provider Active Amy Narayanan , SHUFFLE BOARD OPERATOR Other Provider Active Sheila Bañuelos , DO [...] MD Other Provider Active Kimmy Wong , SHUFFLE BOARD OPERATOR Other Provider Active Bandar Caro , DO Other Provider Active Butch Ballard MD Other Provider Active Cruz Phipps , DO Other Provider Active Taiwo Guy MD Other Provider Active Katy Irvin MD Other Provider Active Bernadette Carr , SHUFFLE BOARD OPERATOR Other Provider Active Carol Carias MD Other Provider Active Roel Macedo MD Other Provider Active Dotty Benson MD Other Provider Active Phyllis Medellin MD Other Provider Active John Hall , DO Other Provider Active Familia Dos Santos MD Other Provider Active Zach Leavitt MD Other Provider Active Pricsilla Bennett , TRIBUNAL MEMBER-C Other Provider Active Shar Kahn MD Other Provider Active Evin Silver MD Other Provider Active Sabas Kc MD Other Provider Active Tarun Bateman MD Other Provider Active Tonya Mcgregor , DO Other Provider Active Paco Kim , DO Other Provider Active Saúl Funk , DO Other Provider Active Bindu Zabala , SHUFFLE BOARD OPERATOR Other Provider Active Jimenez Bran , DO Other Provider Active Watson Ryan MD Other Provider Active Gerda Collins , SHUFFLE BOARD OPERATOR Other Provider Active Marilee Platt , SHUFFLE BOARD OPERATOR Other Provider Active Bianca Banuelos MD Other Provider Active Colby Acosta MD Other Provider Active Amy Narayanan , SHUFFLE BOARD OPERATOR Other Provider Active Sheila Bañuelos , DO Other Provider Active Norma Talamantes RN Other Provider Active [employer] Supervisor Relationship Specialty Start Date End Date Real Dodd MD [address] [place] [address] PCP - General 02/08/19 Goals (unrecognized section and content) Goals may be documented in a n alternate section (unrecognized sect ion and content) No Status Records FoundNo Status Records FoundNo Status Records FoundNo Status Records FoundNo Status Records FoundNo Status Records FoundNo Status Records FoundNo Status Records Found INFORMATION SOURCE (unrecogn ized section and content) DATE CREATED AUTHOR 04/11/2022 [facility] DATE CREATED AUTHOR AUTHOR'S ORGANIZ ATION 01/23/2023 [facility] [place] DATE CREATED AUTHOR AUTHOR'S ORGANIZ ATION 02/04/2023 [facility] DATE CREATED AUTHOR AUTHOR'S ORGANIZ ATION 02/04/2023 [facility] DATE CREATED AUTHOR AUTHOR'S ORGANIZ ATION 06/19/2023 [facility] DATE CREATED AUTHOR AUTHOR'S ORGANIZ ATION 07/09/2023 [facility] DATE CREATED AUTHOR AUTHOR'S ORGANIZ ATION 07/15/[address] [facility] DATE CREATED AUTHOR AUTHOR'S ORGANIZ ATION 07/23/2024 [facility] FOR RECORDS PERTAINING TO PATIENTS WHO [...] BE BASED ON THE PRIMARY CLINICAL RECORDS. [facility] [employer] provides no warranty or guarantee of the accuracy or completeness of information in this document.
[2024-07-25 11:57] LABS: Basophils Percent Auto 0.3 % (0.2-2.0); Eosinophils Absolute Auto 0.3 10^3/uL (0.0-0.7); Eosinophils Percent Auto 2.5 % (0.9-7.0); Hematocrit 39.6 % (42.0-54.0); Hemoglobin 13.4 g/dL (14.0-18.0); Immature Granulocytes Abs Auto 0.03 10^3/uL (0.00-0.03); Immature Granulocytes Pct Auto 0.3 % (0.0-0.5); Lymphocytes Absolute Auto 1.3 10^3/uL (1.2-3.8); Lymphocytes Percent Auto 11.2 % (20.5-60.0); Mean Corpuscular HGB Conc 33.8 g/dL (29.9-35.2); Mean Corpuscular Hemoglobin 34.9 pg (25.9-34.0); Mean Corpuscular Volume 103.1 fL (80.0-94.0); Mean Platelet Volume 10.5 fL (9.5-13.5); Monocytes Absolute Auto 0.8 10^3/uL (0.3-0.8); Monocytes Percent Auto 6.6 % (1.7-12.0); Neutrophils Absolute Auto 9.1 10^3/uL (1.4-6.5); Neutrophils Percent Auto 79.1 % (43.0-75.0); Platelet Count 150 10^3/uL (150-450); Red Blood Count 3.84 10^6/uL (4.70-6.10); Red Cell Distribution Width 13.9 % (11.0-15.0); White Blood Count 11.5 10^3/uL (4.0-11.0)
== END 2024-07-25 11:40 | disposition home or self-care (01) ==
LOC: LAB 11:41
PROVIDERS: PCP Family Medicine; Visit Provider Family Medicine
DX: R79.9 Abnormal finding of blood chemistry, unspecified (principal)
CPT/HCPCS: 36415; 85025

== ENCOUNTER 2024-08-17 12:48 | Outpatient (OUT) | payer OTHER, SELFPAY ==
[2024-08-17 13:28] LABS: Basophils Percent Auto 0.4 % (0.2-2.0); Eosinophils Absolute Auto 0.3 10^3/uL (0.0-0.7); Hematocrit 39.4 % (42.0-54.0); Hemoglobin 13.8 g/dL (14.0-18.0); Immature Granulocytes Abs Auto 0.04 10^3/uL (0.00-0.03); Immature Granulocytes Pct Auto 0.4 % (0.0-0.5); Lymphocytes Absolute Auto 1.5 10^3/uL (1.2-3.8); Lymphocytes Percent Auto 14.1 % (20.5-60.0); Mean Corpuscular Hemoglobin 35.7 pg (25.9-34.0); Mean Corpuscular Volume 101.8 fL (80.0-94.0); Mean Platelet Volume 10.4 fL (9.5-13.5); Monocytes Absolute Auto 0.6 10^3/uL (0.3-0.8); Monocytes Percent Auto 6.1 % (1.7-12.0); Platelet Count 143 10^3/uL (150-450); Red Blood Count 3.87 10^6/uL (4.70-6.10); Red Cell Distribution Width 13.5 % (11.0-15.0); White Blood Count 10.5 10^3/uL (4.0-11.0)
== END 2024-08-17 12:49 | disposition home or self-care (01) ==
LOC: LAB 12:49
PROVIDERS: PCP Family Medicine; Visit Provider Family Medicine
DX: R79.9 Abnormal finding of blood chemistry, unspecified (principal)
CPT/HCPCS: 36415; 85025

== ENCOUNTER 2024-09-28 11:25 | Outpatient (OUT) | payer OTHER, SELFPAY ==
[2024-09-28 11:53] LABS: Basophils Percent Auto 0.3 % (0.2-2.0); Eosinophils Absolute Auto 0.3 10^3/uL (0.0-0.7); Eosinophils Percent Auto 2.8 % (0.9-7.0); Hematocrit 39.6 % (42.0-54.0); Hemoglobin 13.8 g/dL (14.0-18.0); Immature Granulocytes Abs Auto 0.05 10^3/uL (0.00-0.03); Immature Granulocytes Pct Auto 0.5 % (0.0-0.5); Lymphocytes Absolute Auto 1.4 10^3/uL (1.2-3.8); Lymphocytes Percent Auto 13.7 % (20.5-60.0); Mean Corpuscular HGB Conc 34.8 g/dL (29.9-35.2); Mean Corpuscular Hemoglobin 35.8 pg (25.9-34.0); Mean Corpuscular Volume 102.6 fL (80.0-94.0); Mean Platelet Volume 10.2 fL (9.5-13.5); Monocytes Absolute Auto 0.5 10^3/uL (0.3-0.8); Monocytes Percent Auto 5.3 % (1.7-12.0); Neutrophils Absolute Auto 7.7 10^3/uL (1.4-6.5); Neutrophils Percent Auto 77.4 % (43.0-75.0); Platelet Count 124 10^3/uL (150-450); Red Blood Count 3.86 10^6/uL (4.70-6.10); Red Cell Distribution Width 14.1 % (11.0-15.0)
[2024-09-28 12:03] LABS: Estimated Average Glucose 123 mg/dL; Glycohemoglobin A1C 5.9 % (4.5-6.2)
[2024-09-28 12:25] LABS: Alanine Aminotransferase 8 U/L (16-63); Albumin Globulin Ratio 0.8; Albumin Level 3.3 g/dL (3.4-5.0); Alkaline Phosphatase 94 U/L (46-116); Anion Gap 9.5; Aspartate Amino Transferase 14 U/L (15-37); BUN Creatinine Ratio 16.7; Calcium 9.2 mg/dL (8.5-10.1); Chloride 103 mmol/L (98-107); Estimated GFR (African America 48 (>=60 mL/min/1.73m^2); Estimated GFR (Non-African Ame 40 (>=60 mL/min/1.73m^2); Free T3 2.16 pg/mL (2.18-3.98); Globulin 3.9 g/dL; Glucose 160 mg/dL (74-106); Potassium 4.5 mmol/L (3.5-5.1); Sodium 140 mmol/L (136-145); Thyroid Stimulating Hormone 2.657 uIU/mL (0.358-3.740); Total Protein 7.2 g/dL (6.4-8.2)
== END 2024-09-28 11:26 | disposition home or self-care (01) ==
LOC: LAB 11:30
PROVIDERS: PCP Family Medicine; Visit Provider Family Medicine
DX: Z00.00 Encounter for general adult medical examination without abnormal findings (principal); I10 Essential (primary) hypertension; E55.9 Vitamin D deficiency, unspecified; R53.83 Other fatigue; E03.9 Hypothyroidism, unspecified; R73.09 Other abnormal glucose
CPT/HCPCS: 36415; 80053; 82306; 83036; 84436; 84443; 84481; 85025